=== PATIENT | male | born 1945 | race Caucasian/White ===

== ENCOUNTER → 2017-04-23 11:44 | Outpatient (CLI) | payer MEDICARE, SELFPAY ==
--- NOTE | 2017-04-23 11:47 | ECHOD_ITS ---
Reason For Study: ANEMIA Procedure This was a 2D Doppler, Color Flow transthoracic echocardiogram. The exam was of adequate technical quality. Exam performed in department. Left Ventricle Normal LV size. Severe segmental systolic dysfunction (see wall motion). The estimated ejection fraction is 20 %. Anterio-Basal: Hypokinetic. Lateral-Basal: Hypokinetic. Posterior-Basal: Severely hypokinetic. Infero-Basal: Akinetic. Basal inferoseptal: Hypokinetic. Mid-Anterior : Akinetic. Mid- Lateral : Akinetic. Mid-Posterior: Hypokinetic. Mid-Inferior: Akinetic. Mid-inferoseptal : Hypokinetic. Anterior Bronson : Hypokinetic. Inferior Bronson : Akinetic. Lateral Bronson : Hypokinetic. Septal Bronson : Hypokinetic. Right Ventricle Normal RV size. Moderate segmental dysfunction of right ventricle. Atria The left atrium is mildly enlarged. Normal right atrium. No doppler evidence for ASD. Mitral Valve There is no mitral annular calcification. Mild diffuse mitral valve thickening. Mild papillary muscle dysfunction of the mitral valve. Mild-Moderate (1-2+) mitral valve insufficiency. Tricuspid Valve Normal tricuspid valve. Mild to moderate (1-2+) tricuspid valve insufficiency. Right ventricular systolic pressure estimated to be 55 mmHg. Aortic Valve Trisinus/trileaflet aortic valve. Mild diffuse aortic valve thickening. Mild focal aortic valve calcification. Aortic sclerosis, no stenosis. Trivial aortic valve insufficiency. Pulmonic Valve The pulmonic valve is not well visualized. Great Vessels Normal sized aortic root. Pericardium/Pleural Small pericardial effusion. There are no echocardiographic indications of cardiac tamponade. Echolucency c/w a pleural effusion. MMode/2D Measurements & Calculations LVIDd: 5.3 cm IVSd: 0.92 cm Ao root diam: 3.2 cm LVIDs: 4.8 cm LVPWd: 0.91 cm LA dimension: 4.1 cm RVDd: 3.4 cm FS: 10.1 % LAV(MOD-bp): 64.5 ml LA A4 area: 19.6 cm2 RA A4 area: 16.3 cm2 LAV(MOD-bp) Indexed: 33.7 ml/m2 LAV(MOD-sp2): 64.6 ml LAV(MOD-sp4): 57.9 ml Doppler Measurements & Calculations MV E max ron: 66.9 cm/sec Ao V2 max: 108.4 cm/sec LV V1 max: 98.3 cm/sec MV A max ron: 121.8 cm/sec Ao max P.7 mmHg LV V1 max P.9 mmHg MV E/A: 0.55 PA V2 max: 58.0 cm/sec TR max ron: 341.7 cm/sec TR max P.8 mmHg Interpretation Summary Severe segmental systolic dysfunction (see wall motion). The estimated ejection fraction is 20 %. Moderate segmental dysfunction of right ventricle. The left atrium is mildly enlarged. Mild diffuse mitral valve thickening. Mild papillary muscle dysfunction of the mitral valve. Mild-Moderate (1-2+) mitral valve insufficiency. Mild to moderate (1-2+) tricuspid valve insufficiency. Aortic sclerosis, no stenosis. Trivial aortic valve insufficiency. Small pericardial effusion. There are no echocardiographic indications of cardiac tamponade. Echolucency c/w a pleural effusion. Right ventricular systolic pressure estimated to be 55 mmHg. Ordering Physician: Sean Medina Referring Physician: Sean Medina Performed By: Natalie Bond, NICHOLAS, RVT
--- NOTE | 2017-04-23 11:47 | VDUE_ITS ---
Reason For Study: Assess for possible dialysis access placement Right Arm Left Arm Right Cephalic Vein at the wrist Left Cephalic Vein at the wrist measures .22 measures .22 x .26 cm. x .21 cm. Right Cephalic Vein in the forearm Left Cephalic Vein in the forearm measures .30 x .32 cm. measures .27 x .26 cm. Right Cephalic Vein below antecub Left Cephalic Vein below antecub measures .30 x .31 cm. measures .30 x .32 cm. Right Cephalic Vein above antecub Left Cephalic Vein above antecub measures .28 x .27 cm. measures .29 x .31 cm. Right Cephalic Vein mid bicep measures .26 Left Cephalic Vein at mid bicep measures .21 x .30 cm. x .22 cm. Right Cephalic Vein at the shoulder Left Cephalic Vein at the shoulder measures .27 x .26 cm. measures .20 x .22 cm. Right Basilic Vein at the origin Basilic vein at origin measures .47 x .46 measures .38 x .36 cm. cm. Right Basilic Vein mid bicep measures .30 Basilic vein at bicep measures .47 x .47 cm. x .29 cm. Basilic vein above antecub measures .37 Right Basilic Vein above antecub x .37 cm. measures .18 x .22 cm. Brachial artery - .47 x .50 cm with a Brachial artery - .54 x .57 cm with a velocity of 80.9 cm/sec velocity of 58.9 cm/sec Radial artery - .30 x .30 cm with a velocity Radial artery - .26 x .27 cm with a velocity of 66.0 cm/sec. of 73.9 cm/sec. < Interpretation Summary Patent and compressible bilateral cephalic and basilic veins with dimensions as noted. Adequate diameter and flow bilateral radial and brachial arteries. Ordering Physician: Sean Medina Referring Physician: Sean Medina Performed By: Cyndee Ramos RVT
== END ==
PROVIDERS: Family Provider Family Medicine; PCP Family Medicine; Visit Provider Family Medicine
DX: Z01.818 Encounter for other preprocedural examination (principal); N18.6 End stage renal disease; D64.9 Anemia, unspecified; R06.02 Shortness of breath
CPT/HCPCS: 93306; 93970

== ENCOUNTER → 2017-04-27 12:22 | Outpatient (CLI) | payer MEDICARE, SELFPAY ==
--- NOTE | 2017-04-27 12:24 | RAD_ITS ---
STUDY: X-RAY CHEST REASON FOR EXAM: Male, 71 years old. Dyspnea. Patient scheduled for cardiac catheterization 4 days. TECHNIQUE: PA and lateral chest. COMPARISON: 03/26/2017. FINDINGS: Right internal jugular catheter with the tip in the lower superior vena cava. Small bilateral pleural effusions. No pneumothorax. Borderline cardiomegaly. Normal mediastinum and evelio. Normal visualized pulmonary arteries. Normal visualized aortic arch and descending thoracic aorta. Normal visualized thoracic spine. Normal visualized ribs, clavicles, and shoulders. There is no demonstrated abnormality of the visualized soft tissue structures of the upper abdomen. RAD/Chest PA and Lateral IMPRESSION: Stable chest. Small bilateral pleural effusions. Borderline cardiomegaly. Electronically Signed: Denilson Islas MD at 7:29 EST , Service support ,
[2017-04-27 15:05] LABS: Hematocrit 37.9 % (40-54); Hemoglobin 12.1 g/dl (13.0-16.5); Mean Corp Hgb Conc 31.9 g/gl (32-36); Mean Corpuscular Hgb 30.7 pg (27.0-32.0); Mean Corpuscular Volume 96.2 fL (80-94); Mean Platelet Vol. 11.4 fl (6.2-12.0); Platelet Count 212 K/mm3 (150-450); RBC Distribution Width CV 16.4 % (11.6-14.6); RBC Distribution Width SD 57.5 fl (35.1-43.9); Red Blood Count 3.94 M/mm3 (4.6-6.2); White Blood Count 7.3 K/mm3 (4.4-11.0)
[2017-04-27 15:10] LABS: Scan Indicated on CBC? Y/N NO
[2017-04-27 15:13] LABS: International Normalized Ratio 1.1; Prothrombin Time (Protime)PT. 13.5 SECONDS (11.7-14.9)
[2017-04-27 15:14] LABS: Partial Thromboplast Time 31.4 Seconds (24.1-36.2)
[2017-04-27 15:30] LABS: Anion Gap 10 (5-15); BUN 23 mg/dL (7-18); BUN/Creat Ratio 5.5 RATIO (10-20); Calcium,Total 8.9 mg/dL (8.5-10.1); Chloride 102 mmol/L (98-107); Creatinine, Serum 4.22 mg/dL (0.70-1.30); EST Glomerular Filtration Rate 15 mL/min (>60); Est Glom Filt Rate - Afr Amer 18 mL/min (>60); Glucose 144 mg/dL (74-106); Potassium 3.9 mmol/L (3.5-5.1); Sodium Level 139 mmol/L (136-145)
== END ==
PROVIDERS: Family Provider Family Medicine; PCP Family Medicine; Visit Provider Internal Medicine Cardiovascular Disease
DX: I25.10 Atherosclerotic heart disease of native coronary artery without angina pectoris (principal); N18.5 Chronic kidney disease, stage 5; I25.5 Ischemic cardiomyopathy; R06.09 Other forms of dyspnea
CPT/HCPCS: 36415; 71046; 80048; 85027; 85610; 85730

== ENCOUNTER → 2017-04-28 09:03 | Outpatient (CLI) | payer MEDICARE, SELFPAY ==
[2017-04-27 13:32] VITALS: BP 138/92; BMI 27.0
== END ==
PROVIDERS: Family Provider Family Medicine; PCP Family Medicine; Visit Provider Internal Medicine Cardiovascular Disease
DX: I25.5 Ischemic cardiomyopathy (principal); R06.09 Other forms of dyspnea

== ENCOUNTER → 2017-05-01 07:54 | Day surgery (SDC) | payer MEDICARE, SELFPAY ==
[2017-04-27 13:32] VITALS: BP 138/92; BMI 27.0
[2017-04-30 11:34] VITALS: BMI 26.9
[2017-05-01 11:06] LABS: Blood Gas Specimen Type VEN; VBG BASE EXCESS 4 mmol/L (-1.0-3.5); VBG Bicarbonate 29 mmol/L (22-26); VBG Oxygen Content 30 mmol/L (23-33); VBG PO2 25 mmHg (25-40); VBG SO2 47 % (50-70); VBG pCO2 41.5 mmHg (41-51); VBG pH 7.45 (7.32-7.42)
[2017-05-01 11:06] LABS: Base Excess 3 mmol/L (-2 to +2); Bicarbonate 27.1 mmol/L (22-26); Blood Gas Specimen Type ART; PO2 57 mmHG (75-100); SO2 91 % (95-99); Total Carbon Dioxide 28 mmol/L; pCO2 37.4 mmHg (35-45); pH 7.47 (7.35-7.45)
[2017-05-01 11:06] LABS: Blood Gas Specimen Type VEN; VBG BASE EXCESS 4 mmol/L (-1.0-3.5); VBG Bicarbonate 28 mmol/L (22-26); VBG Oxygen Content 29 mmol/L (23-33); VBG PO2 28 mmHg (25-40); VBG SO2 56 % (50-70); VBG pCO2 38.8 mmHg (41-51); VBG pH 7.47 (7.32-7.42)
[2017-05-01 11:06] LABS: Blood Gas Specimen Type VEN; VBG BASE EXCESS 3 mmol/L (-1.0-3.5); VBG Bicarbonate 28 mmol/L (22-26); VBG Oxygen Content 29 mmol/L (23-33); VBG PO2 32 mmHg (25-40); VBG SO2 63 % (50-70); VBG pCO2 43.3 mmHg (41-51); VBG pH 7.41 (7.32-7.42)
[2017-05-01 11:06] LABS: Blood Gas Specimen Type VEN; VBG BASE EXCESS 3 mmol/L (-1.0-3.5); VBG Bicarbonate 27 mmol/L (22-26); VBG Oxygen Content 29 mmol/L (23-33); VBG PO2 25 mmHg (25-40); VBG SO2 49 % (50-70); VBG pCO2 39.9 mmHg (41-51); VBG pH 7.45 (7.32-7.42)
--- NOTE | 2017-05-01 12:30 | CL.D_ITS ---
Patient Name: PAXTON CRUZ Study Date: 05/01/2017 Performing: Juan Dan MD Ht: 66.92 inches 170 cm : 1945 Wt: 171.96 lbs 78 kg Age: 71 Gender: male BSA: 1.89 PROCEDURE(S) PERFORMED PD61-AJS/LHC/COR CLINICAL PROFILE AND INDICATIONS INDICATIONS: Stable Angina, Shortness of Breath, Pulmonary Hypertension Stress/Imaging Stress/Image Study Performed: No Angina Classification Anginal Classification w/in 2 Weeks: CCS III CAD Presentations: Stable angina. CONCLUSIONS Elevated Left Ventricular End Diastolic Pressure Right heart pressures - moderately to severely elevated The patient has pulmonary hypertension which is moderate to severe. Intracardiac shunting: None LVEF: not assessed [place] Multivessel CAD Aortic Valve Stenosis- Mild RECOMMENDATIONS Risk factor modification Medical therapy DESCRIPTION OF PROCEDURE The patient arrived to the procedure lab. The risks and benefits of the procedure as well as a full d escription of our services here and current unavailability of surgical backup were fully explained to the patient and/or their significant other prior to the catheterization. The Timeout was completed, verifying the correct patient and procedure. The patient's procedural site was prepped and draped in the usual fashion. Local anesthetic was given subcutaneously to right groin region with Lidocaine 2%. Using a modified Seldinger technique, arterial access was obtained via the right femoral artery, a 4 Fr sheath was inserted Venous access was obtained via the right femoral vein, a 7Fr sheath was insert ed. A 7Fr thermal dilution catheter was inserted and right heart pressures were recorded, it was then advanced to PA position for cardiac outputs. Thermal dilution cardiac outputs were then recorded. O2 saturations were then obtained. The Thermal dilution catheter was then removed. LV to AO pullback pr essures were then recorded. Left Coronary Artery selective angiography was performed in multiple view s using a 4 Fr. JL5 catheter. Right Coronary Artery selective angiography was then performed in multi ple views using a 4 Fr. 3DRC catheter.The arterial sheath was pulled and manual compression applied u ntil hemostasis is achieved.. The venous sheath was then pulled and manual compression applied until hemostasis achieved CORONARY ANGIOGRAPHY DOMINANCE: Co- Dominant LEFT HEART ASSESSMENT Left Ventricular Ejection Fraction: Not assessed Elevated Left Ventricular End Diastolic Pressure LVEDP: 27 mmHg RIGHT HEART ASSESSMENT Thermal CO: 2.45 Thermal CI: 1.3 PW: 25/32 26 PA: 50/24 34 RV: 46/4 12 RA: 11 10 PVR: 261 SVR: 1535 Aortic Valve Area: 1.88 Aortic Valve Index: 1 Aortic Valve Mean Gradient: 8.5 Right Heart pressures - elevated Pulmonary Hypertension Intracardiac shunting: None LEFT ANTERIOR DECENDING ARTERY: PROX LAD: Previously placed stent is patent with mild luminal irregularities MID LAD: Previously placed stent is patent with mild luminal irregularities DISTAL LAD: Long: Diffuse: Irregular: 85 % Stenosis (small caliber vessel) DIAGONAL 1: Proximal - Long: Diffuse: Irregular: 50 % Stenosis CIRCUMFLEX ARTERY: PROX CIRC: Diffuse: Eccentric: 10-25 % Stenosis MID CIRC: Long: Smooth: Eccentric: 50 % Stenosis OM 1: Proximal - Diffuse: Eccentric: 75 % Stenosis (small caliber vessel) RIGHT CORONARY ARTERY: PROX RCA: Previously placed stent is patent with long diffuse 25% stenosis MID RCA: Previously placed stent is patent with short 50-75% stenosis DISTAL RCA: Previously placed stent is patent with mild luminal irregularities RT PDA: Proximal - Diffuse: Irregular: 50 % Stenosis COLLATERAL FLOW: Collateral flow from Right to Left (RCA to LCX) VALVE FINDINGS: Aortic Valve Stenosis - mild COMPLICATIONS No Complications PROCEDURE MEDICATIONS Versed 1 mg IV Oxygen: 3 L/min via nasal cannula SUMMARY OF HEMODYNAMIC DATA Time AIR REST ECG 08:20:32 ECG 08:21:04 RA 03/02 (10) SV 09:56:39 RV 46/4, 12 09:57:12 PA 50/24 (34) PA 09:59:35 PW 25/32 (26) PV 10:08:00 LV 121/9, 27 10:15:45 PW 32/40 (29) 10:15:45 LV 119/7, 26 10:15:52 PW 29/38 (27) 10:15:52 LVp 114/12, 24 10:16:05 AOp 116/65 (85) 10:16:10 PA 49/20 (31) 10:17:19 RV 45/5, 14 10:17:39 RA 16/ (15) 10:17:45 AO 104/35 (57) SA 10:19:27 Valve Area (c P-P/ms Time AIR REST Aortic 1.88 8.5 mn/142 ms 10:16:05 Type SV CO (l/m) CI (l/m/ HR Time AIR REST Thermal 36.00 2.45 1.30 68 08:20:32 Label % O2 Pres/Loc Time AIR REST IVC 56 SV 10:22:57 SVC 63 10:23:06 PA 49 PA 10:23:12 AO 91 PV 10:23:16 Signed By Juan Dan MD On 05/01/2017 12:29:42 Juan Dan MD
== END ==
PROVIDERS: Family Provider Family Medicine; PCP Family Medicine; Visit Provider Internal Medicine Cardiovascular Disease
DX: I25.118 Atherosclerotic heart disease of native coronary artery with other forms of angina pectoris (principal); I25.5 Ischemic cardiomyopathy; I48.0 Paroxysmal atrial fibrillation; I27.20 Pulmonary hypertension, unspecified; I12.9 Hypertensive chronic kidney disease with stage 1 through stage 4 chronic kidney disease, or unspecified chronic kidney disease; E11.22 Type 2 diabetes mellitus with diabetic chronic kidney disease; N18.9 Chronic kidney disease, unspecified; E78.5 Hyperlipidemia, unspecified; Z79.82 Long term (current) use of aspirin; Z79.899 Other long term (current) drug therapy; I25.2 Old myocardial infarction; Z95.5 Presence of coronary angioplasty implant and graft
CPT/HCPCS: 82803; 93456; 99152; 99153; J7040; C1751; C1769; C1894; Q9967

== ENCOUNTER → 2017-05-15 05:46 | Outpatient (CLI) | payer MEDICARE, SELFPAY ==
--- NOTE | 2017-05-15 10:07 | STRESSREP ---
Stress Test Report Date: 05/15/2017 Procedure: Pharmacologic stress nuclear imaging study Indications: Chest pain; shortness of breath; CAD; ID; status post PCI Consent: Per the patient Procedure: The patient underwent pharmacologic (Regadenoson) evaluation with a peak heart rate of 101 per minute (68% predicted maximal heart rate) and a peak blood pressure of 142/76 mmHg. The baseline ECG demonstrated normal sinus rhythm; right bundle branch block pattern; nonspecific ST and T-wave abnormality. The peak pharmacologic ECG demonstrated no obvious ECG changes. There were no cardiac dysrhythmias pretest, during pharmacologic infusion, or recovery. There was no complaint of chest discomfort during pharmacologic infusion or recovery. The examination was discontinued secondary to completion of protocol. Impression: 1. Pharmacologic (Regadenoson) evaluation 2. Peak pharmacologic ECG with with continued right bundle branch block pattern with nonspecific ST and T-wave abnormality with no obvious ECG changes. 3. No cardiac dysrhythmias pretest, during pharmacologic infusion, or recovery 4. Nuclear images pending Myocardial perfusion imaging study: Technique: The patient was injected with 11.1 millicuries of technetium 99m Cardiolite and subsequently rest SPECT Cardiolite nuclear imaging was obtained in the horizontal long, vertical long, and short axis views. The patient underwent pharmacologic (Regadenoson) evaluation with a peak heart rate of 101 per minute (68% predicted maximal heart rate) and a peak blood pressure of 42/76 mmHg. the patient was injected with 33.8 millicuries of technetium 99m Cardiolite and subsequently stress SPECT Cardiolite nuclear imaging was obtained in the horizontal long, vertical long, and short axis views. A gated Cardiolite study at peak stress was obtained. Interpretation: Rest and stress SPECT Cardiolite nuclear imaging status post realignment, normalization, and attenuation correction demonstrate status post stress and area of diminished tracer uptake in portions of the mid inferolateral segments. There is diminished end-systolic thickening and brightening in the aforementioned areas. The gated Cardiolite study demonstrates diminished myocardial thickening and end were wall motion especially in the aforementioned areas. The reported LVEF is 30%. Impression: 1. Rest and stress SPECT currently nuclear imaging demonstrate myocardial perfusion changes appearing compatible with an area of stress-induced myocardial ischemia involving portions of the mid inferolateral segments. 2. The gated Cardiolite study reports an LVEF of 30%. This note was generated with Dragon dictation software. It may contain incorrect words, spelling, and punctuation that were not noted in checking the note before signing.
== END ==
PROVIDERS: Family Provider Family Medicine; PCP Family Medicine; Visit Provider Internal Medicine Cardiovascular Disease
DX: I25.5 Ischemic cardiomyopathy (principal); I25.10 Atherosclerotic heart disease of native coronary artery without angina pectoris; I25.2 Old myocardial infarction; Z98.61 Coronary angioplasty status
CPT/HCPCS: 78452; 93017; A9500; A4216; J2785

== ENCOUNTER 2017-05-20 09:38 | Day surgery (SDC) | payer MEDICARE, SELFPAY ==
[2017-05-19 11:20] VITALS: BMI 26.9
[2017-05-20] VITALS (20 sets, daily range): BP systolic 113–137; BP diastolic 52–91; PULSE 84–94; RESP 13–28; TEMP 37.2–37.4; O2SAT 89–96; BMI 26.5; BMI 26.9
[2017-05-20 10:36] LABS: Bedside Glucose 134 mg/dL (70-110)
--- NOTE | 2017-05-20 14:30 | EKG12_ITS ---
Test Reason : POST CATH Blood Pressure : / mmHG Vent. Rate : 087 BPM Atrial Rate : 087 BPM P-R Int : 272 ms QRS Dur : 142 ms QT Int : 406 ms P-R-T Axes : 067 051 259 degrees QTc Int : 488 ms Sinus rhythm with 1st degree A-V block Right bundle branch block T wave abnormality, consider lateral ischemia Abnormal ECG Confirmed by ERIN EDEN, MARIO ([id number]), order editor LAITH OSULLIVAN ([id number]) on 05/27/2017 1:25:24 PM Referred By: Saroj Luna Confirmed By:MARIO KHAN MD
[2017-05-20 14:31] LABS: ACT Activated Clotting Time 180 sec (74-137)
[2017-05-20 14:31] LABS: ACT Activated Clotting Time 213 sec (74-137)
--- NOTE | 2017-05-20 14:49 | CL.I_ITS ---
Patient Name: PAXTON CRUZ Study Date: 05/20/2017 Performing: Saroj Luna MD Ht: 67 inches 170 cm : 1945 Wt: 172.2 lbs 78 kg Age: 71 Gender: male BSA: 1.89 PROCEDURE(S) PERFORMED [id number] W OR WO PTCA, SINGLE CORONARY ARTERY [id number] W OR WO PTCA, SINGLE CORONARY ARTERY [id number] W OR WO PTCA, EACH ADD'L ARTERY, SAME MAJOR CLINICAL PROFILE AND CO-MORBIDITIES INDICATIONS: Unstable Angina Stress/Imaging Stress Test w/SPECT MPI: Yes Result: Positive Intermediate Risk Stress Test with S PECT MPI: Positive Intermediate Risk Angina Classification Anginal Classification w/in 2 Weeks: CCS III Comorbidities/Risk Factors: Hypertension Dyslipidemia Prior CHF CONCLUSIONS Successful PTCA/HASMUKH of the of proxima RCA in stent restenosis, utilizing a 2.0 x 12 Angiosculpt, foll owed by a 3.0 x 33 Elunira HASMUKH; 85%-->0%, no dissection. Successful PTCA/HASMUKH of the mid LPL branch of the LCX with a 3.0 x 16 Promus Synergy; 75%-->0%, no dis section. Successful PTCA/HASMUKH of the mid LCX with a 2.75 x 16 Promus Synergy; 75%-->0%, no dissection. No PCI of smal OM branch perfomed due to small vessel disease. RECOMMENDATIONS Highly recommend quitting all tobacco products Follow up with primary mental hygienist Risk factor modification ASA Indefinitley Plavix for at least 12 months Routine post interventional care Refer for Outpatient Cardiac Rehab Manual sheath removal per protocol Follow up with Dr. Dan Hemodialysis either tonight or tomorrow. Pt may proceed with AV fistula placement as scheduled. DESCRIPTION OF PROCEDURE The patient arrived to the procedure lab. The risks and benefits of the procedure as well as a full d escription of our services here and current unavailability of surgical backup were fully explained to the patient and/or their significant other prior to the catheterization. The Timeout was completed, verifying the correct patient and procedure. The patient's procedural site was prepped and draped in the usual fashion. Local anesthetic was given subcutaneously to right groin region with Lidocaine 2%. Using a modified Seldinger technique, arterial access was obtained via the right femoral artery, a 6 Fr sheath was inserted.. HSII Guide catheter was inserted and engaged into the RCA. BMW Guide wire was advanced to the RCA. An giogram performed pre balloon dilatation. 2.0x10 Angioscultp Balloon catheter was advanced across les ion in the right coronary, proximal. Angiogram performed post balloon dilatation. 3.0x33 Elunir Drug Eluting stent was advanced across the lesion in the right coronary, proximal. Angiogram performed pos t stent deployment. NC Emerge 3.0x12 Balloon catheter was inserted post stent. Angiogram performed po st balloon dilatation. EBU 3.75 Guide catheter was inserted and engaged into the LCA. BMW Guide wire was advanced to the OM. BMW Guide wire was inserted as a americo wire. 2.0x12 Emerge Balloon catheter was advanced across lesion in the circumflex, mid. PTCA balloon inflated at 6 atms for 11 secs Angiog randall performed post balloon dilatation. BMW Guide wire was advanced to the Circumflex. 2.0x12 Emerge B alloon catheter was advanced across lesion in the circumflex, distal. PTCA balloon inflated at 10 brittany s for 14 secs Angiogram performed post balloon dilatation. 3.0x16 Synergy Drug Eluting stent was adva nced across the lesion in the circumflex, distal. Angiogram performed post stent deployment. synergy 2.75 x 16 Drug Eluting stent was advanced across the lesion in the circumflex, mid. Angiogram perform ed post stent deployment.. . The arterial sheath was sutured in place and capped. INTERVENTION INFORMATION LESION SITE: RCA (Proximal) Lesion Complexity: High/C, lesion at bifurcation: No, thrombus present: No, lesion length: 33 mm, cul prit lesion: No Pre Stenosis: 85 % Pre intervention JAMILA flow: 3 PROCEDURE: Drug Eluting Stent with pre and post dilatation Post Stenosis: 0 % Post intervention JAMILA flow: 3 Lesion Devices: Medtronic 6 Fr HSII 100cm Guide Catheter Live .014 BMW [place] Straight 190cm doxIQ Angiosculpt RX 2.0x10 Scoring Balloon Cardinal Elunir HASMUKH RX 3.0X33 Torsten Sci NC EMERGE MR 3.00x12 BALLOON LESION SITE: Circumflex (Mid) Lesion Complexity: Non-High/Non-C, lesion at bifurcation: No, thrombus present: No, lesion length: 16 mm, culprit lesion: Yes Pre Stenosis: 75 % Pre intervention JAMILA flow: 3 PROCEDURE: Drug Eluting Stent with pre dilatation. Post Stenosis: 0 % Post intervention JAMILA flow: 3 Lesion Devices: Medtronic 6 Fr EBU3.75 100cm Guide Catheter Live .014 BMW [place] Straight 190cm Torsten Sci EMERGE MR 2.00x12 BALLOON Torsten Sci Synergy MR HASMUKH 2.75x16 LESION SITE: Circumflex (Distal) Lesion Complexity: Non-High/Non-C, lesion at bifurcation: No, thrombus present: No, lesion length: 16 mm, culprit lesion: No Pre Stenosis: 75 % Pre intervention JAMILA flow: 3 PROCEDURE: Drug Eluting Stent with pre dilatation. 0 % Post intervention JAMILA flow: 3 Lesion Devices: Torsten Sci EMERGE MR 2.00x12 BALLOON Torsten Sci Synergy MR HASMUKH 3.00x16 COMPLICATIONS No Complications PROCEDURE MEDICATIONS Baby Aspirin (81mg) 1 Tabs PO @ 05/20/2017 10:18:33 Heparin 6000 unit(s) IV 05/20/2017 13:16:19 Heparin 4000 unit(s) IV 05/20/2017 13:44:44 Nitro 200 mcg IC 05/20/2017 13:18:03 Nitro 200 mcg IC 05/20/2017 13:18:03 Nitro 200 mcg IC 05/20/2017 13:41:31 Nitro 200 mcg IC 05/20/2017 13:59:00 Plavix 75 mg PO 05/20/2017 10:18:13 SUMMARY OF HEMODYNAMIC DATA Time AIR REST ECG 10:23:25 AO 137/68 (97) SA 13:17:31 Signed By Saroj Luna MD On 05/20/2017 14:48:20 Saroj Luna MD
[2017-05-20 15:20] LABS: Hematocrit 30.3 % (40-54); Hemoglobin 10.1 g/dl (13.0-16.5); Mean Corp Hgb Conc 33.3 g/gl (32-36); Mean Corpuscular Hgb 31.3 pg (27.0-32.0); Mean Corpuscular Volume 93.8 fL (80-94); Mean Platelet Vol. 10.4 fl (6.2-12.0); Platelet Count 243 K/mm3 (150-450); RBC Distribution Width CV 15.5 % (11.6-14.6); RBC Distribution Width SD 53.1 fl (35.1-43.9); Red Blood Count 3.23 M/mm3 (4.6-6.2); White Blood Count 7.9 K/mm3 (4.4-11.0)
[2017-05-20 15:21] LABS: Scan Indicated on CBC? Y/N NO
[2017-05-20] MEDS: 0.9% Normal Saline 1,000 ML 150 ML IV (15:26)
--- NOTE | 2017-05-20 15:32 | CRPHASE1 ---
Patient Data/Charges Former Patient:: Phase I Director Translational:: Saroj Luna Admit Date:: 05/20/17 Phase I Charge:: Level I - Education Risk Factors/Lifestyle Smoking Status: Never smoker Hx Hypertension: Yes Hx Diabetes Mellitus Type 2: Yes Hx Dyslipidemia: Yes Hx Obesity: Yes Height: 1.7 m Weight:: 78.018 kg BMI: 26.9 ETOH: No Caffeine: Yes Substance Abuse: No Risk Factor for Sedentary Lifestyle: Lowest Risk Family History: Family History (Last Reviewed 05/15/17 @ 14:12 by Deedee Carlos) Mother Breast cancer Father Colon cancer Family History: Diabetes, Heart Disease, Hypertension Past Cardiac Illness: Coronary Artery Disease, Myocardial Infarction, Previous PCI w/Stent Phase I Education Given On:: [place], Nutrition, Antiplatelet medication, CHF, Diabetes - Type II Issues Affecting Care:: None Knowledge of Condition:: Yes Hospital Course Pain Description: Tightness - 7 PREVIOUS STENTS 3 AR'S Cardiac Cath Date:: 05/20/17 Medical/Surgical History AR:: Yes Angina:: Yes CAD:: Yes Diabetes Type II:: Yes Hypertension:: Yes Renal:: Yes - ON DIAYLSIS 3X WEEK PTCA:: Yes - SINCE FEB 2014
--- NOTE | 2017-05-20 15:37 | CRPH1.INSTRU ---
General Education CAD and cardiac anatomy and function:: Patient communicates acknowledgment Explanation of diagnoses and procedures:: Patient communicates acknowledgment Sign/Symptoms of [place]:: Patient communicates acknowledgment Antiplatelet therapy: Patient communicates acknowledgment Proper use of NTG-SL: Patient communicates acknowledgment Emergency procedures and activation of EMS: Patient communicates acknowledgment Compliance of all prescribed medications: Patient communicates acknowledgment Smoking Patient Nicotine/Smoking Risk Factors Are:: Never smoked Dyslipidemia Recommendations Include:: Lipid profile not available - on meds Overweight/Obesity Patient Overweight/Obesity Risk Factors Are:: Overweight = 26-29 Overweight/Obesity:: Patient communicates acknowledgment Hypertension Recommendations Include:: Maintain BP <130/85, BP <130/80 if diabetic Hypertension:: Patient communicates acknowledgment - on meds Heart Disease Patient Heart Disease Risk Factors Are:: Family history of heart disease < 65 years old, Previous cardiac event Heart Disease Response Code:: Patient communicates acknowledgment Diabetes Patient Diabetes Risk Factors Are:: Elevated blood sugars Recommendations Include:: Maintain fasting blood sugars 70-110 md/dL Diabetes:: Patient communicates acknowledgment Metabolic Syndrome Patient Metabolic Syndrome Risk Factors Are [3 of 5]:: Fasting blood sugar > 100 mg/dL, Hypertension Metabolic Syndrome Response Code:: Patient communicates acknowledgment Sedentary Recommendations Include:: Discussed home walking program Sedentary Response Code:: Patient communicates acknowledgment Stress Patient Stress Risk Factors Are:: Patient denies stress as a risk factor
[2017-05-20 15:44] LABS: CPK Total, Creatine Kinase 54 U/L (39-308)
[2017-05-20 16:25] LABS: M R Staph aureus DNA By PCR Negative (Negative); Probe Check PASS; Specimen Processing Control PASS
[2017-05-20 16:51] LABS: ACT Activated Clotting Time 169 sec (74-137)
[2017-05-20] MEDS: Pravastatin 80 MG Tablet PO (21:29)
[2017-05-20] MEDS: 0.9% NaCl Peripheral Flush Adult/Peds IV (21:29)
[2017-05-20] MEDS: Carvedilol 12.5 MG Tablet PO (21:29)
[2017-05-20 21:40] LABS: Hematocrit 30.4 % (40-54); Hemoglobin 9.9 g/dl (13.0-16.5); Mean Corp Hgb Conc 32.6 g/gl (32-36); Mean Corpuscular Hgb 30.6 pg (27.0-32.0); Mean Corpuscular Volume 93.8 fL (80-94); Platelet Count 241 K/mm3 (150-450); RBC Distribution Width CV 15.8 % (11.6-14.6); RBC Distribution Width SD 54.4 fl (35.1-43.9); Red Blood Count 3.24 M/mm3 (4.6-6.2); White Blood Count 7.6 K/mm3 (4.4-11.0)
[2017-05-20 21:42] LABS: Scan Indicated on CBC? Y/N NO
[2017-05-20 21:46] LABS: CPK Total, Creatine Kinase 47 U/L (39-308)
[2017-05-21] VITALS (17 sets, daily range): BP systolic 109–158; BP diastolic 55–84; PULSE 78–88; RESP 15–29; TEMP 36.8–37.2; O2SAT 89–96
[2017-05-21 04:05] LABS: Hematocrit 29.6 % (40-54); Hemoglobin 9.9 g/dl (13.0-16.5); Mean Corp Hgb Conc 33.4 g/gl (32-36); Mean Corpuscular Hgb 31.9 pg (27.0-32.0); Mean Corpuscular Volume 95.5 fL (80-94); Mean Platelet Vol. 10.2 fl (6.2-12.0); Platelet Count 219 K/mm3 (150-450); RBC Distribution Width CV 15.5 % (11.6-14.6); White Blood Count 7.6 K/mm3 (4.4-11.0)
[2017-05-21 04:07] LABS: Scan Indicated on CBC? Y/N NO
[2017-05-21 04:27] LABS: CPK Total, Creatine Kinase 44 U/L (39-308)
[2017-05-21 04:34] LABS: Anion Gap 8 (5-15); BUN 20 mg/dL (7-18); BUN/Creat Ratio 4.9 RATIO (10-20); Calcium,Total 7.9 mg/dL (8.5-10.1); Chloride 102 mmol/L (98-107); Cholesterol 98 mg/dL (200); Creatinine, Serum 4.12 mg/dL (0.70-1.30); EST Glomerular Filtration Rate 15 mL/min (>60); Est Glom Filt Rate - Afr Amer 18 mL/min (>60); Estimated Creatinine Clearance 14.93 ml/min; Glucose 172 mg/dL (74-106); High Density Lipoprotein 37 mg/dL; Sodium Level 137 mmol/L (136-145); Triglycerides 89 mg/dL; Very Low Density Lipoprotein 18 mg/dL (5-40)
--- NOTE | 2017-05-21 07:29 | PCM.DC.CCA ---
Discharge Diet: Low fat/ Low Cholesterol Discharge Activity: Return to Normal Activity May shower in (days): 1 May resume sexual activity in: 1-2 weeks Lifting Restrictions: Do not lift anything greater than 10 pounds for 3 days Call your doctor if your incision/area has: Continuous Slow Oozing, Sudden Increased Bleeding, Increased Pain/ Swelling, Increased Redness, Foul Smelling Discharge, Swelling at the incision site Call your doctor if you observe: Fever of 101 or Higher, Shortness of breath, Chest pain Remove Dressing in (days):: 1 Cleanse incision/area with: Soap & Water Additional Instructions: You will be on Plavix for at least one year. If anyone asks you to stop this medication, please contact the [facility] first. You will remain on aspirin for life. You are scheduled to see Sean Lynne, Nurse Practitioner, in the [facility] office on June 30, 2017 at 9:30 AM to evaluate how you are doing. You may receive a phone call for cardiac rehab before that time. If you have any concerns, please call our office at [phone] Allergies/Adverse Reactions: Allergies codeine Allergy (Verified 05/20/17 09:59) Itching Medications to take at Discharge carvedilol 12.5 mg tablet 12.5 mg PO BID #60 tab 04/27/17 clopidogrel 75 mg tablet 75 mg PO QDAY 04/27/17 isosorbide mononitrate ER 120 mg tablet,extended release 24 hr 120 mg PO DAILY 04/27/17 pravastatin 80 mg tablet 80 mg PO QHS #30 tab 04/27/17 aspirin 81 mg chewable tablet 81 mg PO QDAY tab 04/28/17 Guaifen/Phenyleph/Acetaminophn [Severe Sinus Congest-Pain Cplt] 1 each PO Q6H PRN PRN 05/19/17 Ensure Enlive 120 ml PO 4X/DAY liquid 05/21/17 Primary Care Physician: Sean Medina MD [Primary Care Provider] - Please Follow Up With: Sean Ferguson, [facility] - Office follow-up When: June 30, 2017 at 9:30 AM Cardiac Rehabilitation Info Cardiac Rehabilitation Program Information: Cardiac Rehabilitation is important for patients like you who are recovering from a heart problem. Cardiac rehabilitation programs are recognized as integral to the continued care of the patient with coronary heart disease. The cardiac rehabilitation program is designed to optimize a patient's physical, psychological, and social functioning. Health acute care certified nursing assistant work in cardiac rehabilitation programs and assist you with getting the treatments you need to get stronger and healthier - like exercise, healthy eating habits, and medications. Cardiac rehabilitation has been show to help people with heart problems live longer and have better life enjoyment than people who do not go to cardiac rehabilitation. Please contact the Cardiac Rehabilitation Program at [facility] at in two weeks if you have not heard from them.
--- NOTE | 2017-05-21 07:36 | DCINST_ITS ---
Discharge Diet: Low fat/ Low Cholesterol Discharge Activity: Return to Normal Activity May shower in (days): 1 May resume sexual activity in: 1-2 weeks Lifting Restrictions: Do not lift anything greater than 10 pounds for 3 days Call your doctor if your incision/area has: Continuous Slow Oozing, Sudden Increased Bleeding, Increased Pain/ Swelling, Increased Redness, Foul Smelling Discharge, Swelling at the incision site Call your doctor if you observe: Fever of 101 or Higher, Shortness of breath, Chest pain Remove Dressing in (days):: 1 Cleanse incision/area with: Soap & Water Additional Instructions: You will be on Plavix for at least one year. If anyone asks you to stop this medication, please contact the [facility] first. You will remain on aspirin for life. You are scheduled to see Sean Lynne, Nurse Practitioner, in the [facility] office on June 30, 2017 at 9:30 AM to evaluate how you are doing. You may receive a phone call for cardiac rehab before that time. If you have any concerns, please call our office at [phone] Allergies/Adverse Reactions: Allergies codeine Allergy (Verified 05/20/17 09:59) Itching Medications to take at Discharge carvedilol 12.5 mg tablet 12.5 mg PO BID #60 tab 04/27/17 clopidogrel 75 mg tablet 75 mg PO QDAY 04/27/17 isosorbide mononitrate ER 120 mg tablet,extended release 24 hr 120 mg PO DAILY 04/27/17 pravastatin 80 mg tablet 80 mg PO QHS #30 tab 04/27/17 aspirin 81 mg chewable tablet 81 mg PO QDAY tab 04/28/17 Guaifen/Phenyleph/Acetaminophn [Severe Sinus Congest-Pain Cplt] 1 each PO Q6H PRN PRN 05/19/17 Ensure Enlive 120 ml PO 4X/DAY liquid 05/21/17 Primary Care Physician: Sean Medina MD [Primary Care Provider] - Please Follow Up With: Sean Ferguson, [facility] - Office follow-up When: June 30, 2017 at 9:30 AM Cardiac Rehabilitation Info Cardiac Rehabilitation Program Information: Cardiac Rehabilitation is important for patients like you who are recovering from a heart problem. Cardiac rehabilitation programs are recognized as integral to the continued care of the patient with coronary heart disease. The cardiac rehabilitation program is designed to optimize a patient's physical, psychological, and social functioning. Health college and career counselor work in cardiac rehabilitation programs and assist you with getting the treatments you need to get stronger and healthier - like exercise, healthy eating habits, and medications. Cardiac rehabilitation has been show to help people with heart problems live longer and have better life enjoyment than people who do not go to cardiac rehabilitation. Please contact the Cardiac Rehabilitation Program at [facility] at in two weeks if you have not heard from them.
--- NOTE | 2017-05-21 08:25 | PCM.PN.BLA ---
Progress Note Pt. is not on an CHRISTINA inhibitor or ARB d/t history of chronic kidney disease and need for dialysis.
--- NOTE | 2017-05-21 11:45 | PCM.CONS.R ---
Problem List (1) ESRD (end stage renal disease) on dialysis Status: Acute Consultation - Renal 05/21/17 PCP/ Referring MD: Requesting physician: Dr Luna Primary care physician: Sean Medina MD Reason for Consultation:: ESRD - History of Present Illness History of Present Illness: The patient is a 71 year old M who was admitted to [facility] electively after a cardiac cath and PCI. ESRD on HD TTS schedule Access is RIJ TDC. was scheduled for AVF placement soon currently complaints of some pain and swelling in left thumb - Allergies Allergies: Allergies codeine Allergy (Verified 05/20/17 09:59) Itching - Current Medications Current Medications: Current Medications Aspirin (Aspirin, Baby) 81 mg PO DAILY@0800 [facility] Atropine Sulfate () 0.5 mg IV UD PRN PRN Reason: HR <50 bpm Carvedilol (Coreg) 12.5 mg PO BID [facility] Last Admin: 05/20/17 21:29 Dose: 12.5 mg Clopidogrel Bisulfate (Plavix) 75 mg PO DAILY [facility] Sodium Chloride () 250 mls @ 15 mls/hr IV .[id number] PRN PRN Reason: SALINE FLUSH Sodium Chloride () 250 mls @ 15 mls/hr IV .[id number] PRN PRN Reason: SALINE FLUSH Isosorbide Mononitrate (Imdur) 120 mg PO DAILY [facility] Nutritional Formula (Lactose Free) (Ensure Enlive) 120 ml PO 4X/DAY [facility] Last Admin: 05/20/17 21:28 Dose: Not Given Pravastatin Sodium (Pravachol) 80 mg PO QHS [facility] Last Admin: 05/20/17 21:29 Dose: 80 mg Sodium Chloride () 500 ml IV BOLUS PRN PRN Reason: VASO-VAGAL PROTOCOL Sodium Chloride () 5 - 30 ml IV UD PRN PRN Reason: SALINE FLUSH Last Admin: 05/20/17 21:29 Dose: 30 ml - Past Medical History Past Medical History (Chronic Problems): Chronic Problems (Last Reviewed 05/15/17 @ 14:12 by Deedee Carlos) Old myocardial infarction (Chronic) Inferior UT, anterior UT 07/05 assisted use of drug (Chronic) Antihyperlipidemic Family history of hypertension (Chronic) Other secondary pulmonary hypertension (Chronic) Subendocardial ischemia (Chronic) Type II diabetes mellitus (Chronic) Hyperlipidemia associated with type 2 diabetes mellitus (Chronic) Hypertension (Chronic) S/P PTCA (percutaneous transluminal coronary angioplasty) (Chronic) Stents X 5, 03/03 [facility], PTCA with stenting to mid & distal RCA 07/05, PTCA of proximial LAD 07/05 HLD (hyperlipidemia) (Chronic) Diabetes mellitus (Chronic) - Past Surgical History Surgical History: angioplasty, - - Coronary artery stent placement ?7, finger amputations right hand - Social History Smoking Status: Never smoker - Family History Maternal Family History: Family History (Last Updated 05/21/17 @ 09:02 by Maggie Schmid) Mother Breast cancer Father Colon cancer Other Family history of hypertension History Items: Heart Disease Paternal Family History: Family History (Last Updated 05/21/17 @ 09:02 by Maggie Schmid) Mother Breast cancer Father Colon cancer Other Family history of hypertension History Items: Cancer Review of Systems Constitutional: Denies: Chills, Fever, Weight Change HEENT: Denies: Head Aches, Sinus Congestion, Sinus Drainage Cardiovascular: Denies: Chest Pain, Palpitations Respiratory: Denies: Cough, Shortness of breath at rest, Sputum production Gastrointestinal: Denies: Abdominal Pain, Nausea, Vomiting Genitourinary: Denies: Dysuria Musculoskeletal: Denies: Joint Pain, Joint Tenderness Skin: Denies: Rash, Wounds Neurological: Denies: Numbness, Tingling, Focal weakness Psychiatric: Denies: Anxiety, Depression, Homicidal Ideations, Suicidal Ideations Hematologic/ Lymphatic: Denies: Easy Bruising, Easy Bleeding Patient Problems: Active and Suspected Problems (Last Reviewed 05/15/17 @ 14:12 by Deedee Carlos) ESRD (end stage renal disease) (Acute) ESRD (end stage renal disease) on dialysis (Acute) - Physical Exam General: Alert, Oriented x3, Cooperative HEENT: Atraumatic, PERRLA, EOMI, Normocephalic Neck: Supple, No JVD, Negative Carotid Bruits Lungs: Clear to auscultation, Normal air movement Cardiovascular: Regular rate, No murmurs Abdomen: Bowel Sounds Present, Soft, Non Tender Extremities: No edema, Capillary Refill Less than 3 Seconds Skin: No rashes, No breakdown Musculoskeletal: No Tenderness to Palpation of Joints or Extremities Neurological: Cranial nerves II-XII grossly intact Psych/Mental Status: Normal Affect, Appropriate Vital Signs Temp Pulse Resp BP Pulse Ox 98.3 F 82 29 H 130/71 H 89 05/21/17 01:00 05/21/17 08:00 05/21/17 06:00 05/21/17 06:00 05/21/17 06:00 Oxygen Delivery Method Room Air Weight: 78.1 kg Body Mass Index (BMI) 26.5 Finger Stick Blood Glucose 123 Intake and Output for Last 24 Hours 05/19/17 05/20/17 05/21/17 23:59 23:59 23:59 Intake Total 120 / 120 960 / 960 Output Total 600 / 600 Balance 120 / 120 360 / 360 Laboratory Tests Past 24 Hrs 05/20/17 05/20/17 05/20/17 13:41 14:18 14:45 WBC RBC Hgb Hct MCV MCH MCHC RDW RDW Differential Plt Count MPV Activated Clotting Time 180 H 213 H Sodium Potassium Chloride Carbon Dioxide Anion Gap BUN Creatinine Estim Creat Clear Calc Est GFR (MDRD) Af Amer Est GFR (MDRD) Non-Af BUN/Creatinine Ratio Glucose Calcium Total Creatine Kinase Triglycerides Cholesterol LDL Cholesterol VLDL Cholesterol HDL Cholesterol MRSA (PCR) Negative 05/20/17 05/20/17 05/20/17 15:00 15:00 16:37 WBC 7.9 RBC 3.23 L Hgb 10.1 L Hct 30.3 L MCV 93.8 MCH 31.3 MCHC 33.3 RDW 15.5 H RDW Differential 53.1 H Plt Count 243 MPV 10.4 Activated Clotting Time 169 H Sodium Potassium Chloride Carbon Dioxide Anion Gap BUN Creatinine Estim Creat Clear Calc Est GFR (MDRD) Af Amer Est GFR (MDRD) Non-Af BUN/Creatinine Ratio Glucose Calcium Total Creatine Kinase 54 Triglycerides Cholesterol LDL Cholesterol VLDL Cholesterol HDL Cholesterol MRSA (PCR) 05/20/17 05/20/17 05/21/17 21:15 21:15 04:00 WBC 7.6 RBC 3.24 L Hgb 9.9 L Hct 30.4 L MCV 93.8 MCH 30.6 MCHC 32.6 RDW 15.8 H RDW Differential 54.4 H Plt Count 241 MPV 10.0 Activated Clotting Time Sodium Potassium Chloride Carbon Dioxide Anion Gap BUN Creatinine Estim Creat Clear Calc Est GFR (MDRD) Af Amer Est GFR (MDRD) Non-Af BUN/Creatinine Ratio Glucose Calcium Total Creatine Kinase 47 44 Triglycerides Cholesterol LDL Cholesterol VLDL Cholesterol HDL Cholesterol MRSA (PCR) 05/21/17 05/21/17 04:00 04:00 WBC 7.6 RBC 3.10 L Hgb 9.9 L Hct 29.6 L MCV 95.5 H MCH 31.9 MCHC 33.4 RDW 15.5 H RDW Differential 52.0 H Plt Count 219 MPV 10.2 Activated Clotting Time Sodium 137 Potassium 4.0 Chloride 102 Carbon Dioxide 27.0 Anion Gap 8 BUN 20 H Creatinine 4.12 H Estim Creat Clear Calc 14.93 Est GFR (MDRD) Af Amer 18 L Est GFR (MDRD) Non-Af 15 L BUN/Creatinine Ratio 4.9 L Glucose 172 H Calcium 7.9 L Total Creatine Kinase Triglycerides 89 Cholesterol 98 LDL Cholesterol 43 VLDL Cholesterol 18 HDL Cholesterol 37 L MRSA (PCR) Assessment/Plan Active and Suspected Problems (Last Reviewed 05/15/17 @ 14:12 by Deedee Carlos) ESRD (end stage renal disease) (Acute) ESRD (end stage renal disease) on dialysis (Acute) ESRD. HD today. seen on dialysis. see orders and flowsheets. BP is 135/45. Access is RIJ TDC. UF 1 L as tolerated. he is close to EDW CAD s/p stenting. no complaints dc today after HD
--- NOTE | 2017-05-21 11:52 | CON.PCM_ITS ---
Problem List (1) ESRD (end stage renal disease) on dialysis Status: Acute Consultation - Renal 05/21/17 PCP/ Referring MD: Requesting physician: Dr Luna Primary care physician: Sean Medina MD Reason for Consultation:: ESRD - History of Present Illness History of Present Illness: The patient is a 71 year old M who was admitted to [facility] electively after a cardiac cath and PCI. ESRD on HD TTS schedule Access is RIJ TDC. was scheduled for AVF placement soon currently complaints of some pain and swelling in left thumb - Allergies Allergies: Allergies codeine Allergy (Verified 05/20/17 09:59) Itching - Current Medications Current Medications: Current Medications Aspirin (Aspirin, Baby) 81 mg PO DAILY@0800 [facility] Atropine Sulfate () 0.5 mg IV UD PRN PRN Reason: HR <50 bpm Carvedilol (Coreg) 12.5 mg PO BID [facility] Last Admin: 05/20/17 21:29 Dose: 12.5 mg Clopidogrel Bisulfate (Plavix) 75 mg PO DAILY [facility] Sodium Chloride () 250 mls @ 15 mls/hr IV .[id number] PRN PRN Reason: SALINE FLUSH Sodium Chloride () 250 mls @ 15 mls/hr IV .[id number] PRN PRN Reason: SALINE FLUSH Isosorbide Mononitrate (Imdur) 120 mg PO DAILY [facility] Nutritional Formula (Lactose Free) (Ensure Enlive) 120 ml PO 4X/DAY [facility] Last Admin: 05/20/17 21:28 Dose: Not Given Pravastatin Sodium (Pravachol) 80 mg PO QHS [facility] Last Admin: 05/20/17 21:29 Dose: 80 mg Sodium Chloride () 500 ml IV BOLUS PRN PRN Reason: VASO-VAGAL PROTOCOL Sodium Chloride () 5 - 30 ml IV UD PRN PRN Reason: SALINE FLUSH Last Admin: 05/20/17 21:29 Dose: 30 ml - Past Medical History Past Medical History (Chronic Problems): Chronic Problems (Last Reviewed 05/15/17 @ 14:12 by Deedee Carlos) Old myocardial infarction (Chronic) Inferior NV, anterior NV 07/05 longterm use of drug (Chronic) Antihyperlipidemic Family history of hypertension (Chronic) Other secondary pulmonary hypertension (Chronic) Subendocardial ischemia (Chronic) Type II diabetes mellitus (Chronic) Hyperlipidemia associated with type 2 diabetes mellitus (Chronic) Hypertension (Chronic) S/P PTCA (percutaneous transluminal coronary angioplasty) (Chronic) Stents X 5, 03/03 [facility], PTCA with stenting to mid & distal RCA 07/05 , PTCA of proximial LAD 07/05 HLD (hyperlipidemia) (Chronic) Diabetes mellitus (Chronic) - Past Surgical History Surgical History: angioplasty, - - Coronary artery stent placement ?7, finger amputations right hand - Social History Smoking Status: Never smoker - Family History Maternal Family History: Family History (Last Updated 05/21/17 @ 09:02 by Maggie Schmid) Mother Breast cancer Father Colon cancer Other Family history of hypertension History Items: Heart Disease Paternal Family History: Family History (Last Updated 05/21/17 @ 09:02 by Maggie Schmid) Mother Breast cancer Father Colon cancer Other Family history of hypertension History Items: Cancer Review of Systems Constitutional: Denies: Chills, Fever, Weight Change HEENT: Denies: Head Aches, Sinus Congestion, Sinus Drainage Cardiovascular: Denies: Chest Pain, Palpitations Respiratory: Denies: Cough, Shortness of breath at rest, Sputum production Gastrointestinal: Denies: Abdominal Pain, Nausea, Vomiting Genitourinary: Denies: Dysuria Musculoskeletal: Denies: Joint Pain, Joint Tenderness Skin: Denies: Rash, Wounds Neurological: Denies: Numbness, Tingling, Focal weakness Psychiatric: Denies: Anxiety, Depression, Homicidal Ideations, Suicidal Ideations Hematologic/ Lymphatic: Denies: Easy Bruising, Easy Bleeding Patient Problems: Active and Suspected Problems (Last Reviewed 05/15/17 @ 14:12 by Deedee Carlos) ESRD (end stage renal disease) (Acute) ESRD (end stage renal disease) on dialysis (Acute) - Physical Exam General: Alert, Oriented x3, Cooperative HEENT: Atraumatic, PERRLA, EOMI, Normocephalic Neck: Supple, No JVD, Negative Carotid Bruits Lungs: Clear to auscultation, Normal air movement Cardiovascular: Regular rate, No murmurs Abdomen: Bowel Sounds Present, Soft, Non Tender Extremities: No edema, Capillary Refill Less than 3 Seconds Skin: No rashes, No breakdown Musculoskeletal: No Tenderness to Palpation of Joints or Extremities Neurological: Cranial nerves II-XII grossly intact Psych/Mental Status: Normal Affect, Appropriate Vital Signs Temp Pulse Resp BP Pulse Ox 98.3 F 82 29 H 130/71 H 89 05/21/17 01:00 05/21/17 08:00 05/21/17 06:00 05/21/17 06:00 05/21/17 06:00 Oxygen Delivery Method Room Air Weight: 78.1 kg Body Mass Index (BMI) 26.5 Finger Stick Blood Glucose 123 Intake and Output for Last 24 Hours 05/19/17 05/20/17 05/21/17 23:59 23:59 23:59 Intake Total 120 / 120 960 / 960 Output Total 600 / 600 Balance 120 / 120 360 / 360 Laboratory Tests Past 24 Hrs 05/20/17 05/20/17 05/20/17 13:41 14:18 14:45 WBC RBC Hgb Hct MCV MCH MCHC RDW RDW Differential Plt Count MPV Activated Clotting Time 180 H 213 H Sodium Potassium Chloride Carbon Dioxide Anion Gap BUN Creatinine Estim Creat Clear Calc Est GFR (MDRD) Af Amer Est GFR (MDRD) Non-Af BUN/Creatinine Ratio Glucose Calcium Total Creatine Kinase Triglycerides Cholesterol LDL Cholesterol VLDL Cholesterol HDL Cholesterol MRSA (PCR) Negative 05/20/17 05/20/17 05/20/17 15:00 15:00 16:37 WBC 7.9 RBC 3.23 L Hgb 10.1 L Hct 30.3 L MCV 93.8 MCH 31.3 MCHC 33.3 RDW 15.5 H RDW Differential 53.1 H Plt Count 243 MPV 10.4 Activated Clotting Time 169 H Sodium Potassium Chloride Carbon Dioxide Anion Gap BUN Creatinine Estim Creat Clear Calc Est GFR (MDRD) Af Amer Est GFR (MDRD) Non-Af BUN/Creatinine Ratio Glucose Calcium Total Creatine Kinase 54 Triglycerides Cholesterol LDL Cholesterol VLDL Cholesterol HDL Cholesterol MRSA (PCR) 05/20/17 05/20/17 05/21/17 21:15 21:15 04:00 WBC 7.6 RBC 3.24 L Hgb 9.9 L Hct 30.4 L MCV 93.8 MCH 30.6 MCHC 32.6 RDW 15.8 H RDW Differential 54.4 H Plt Count 241 MPV 10.0 Activated Clotting Time Sodium Potassium Chloride Carbon Dioxide Anion Gap BUN Creatinine Estim Creat Clear Calc Est GFR (MDRD) Af Amer Est GFR (MDRD) Non-Af BUN/Creatinine Ratio Glucose Calcium Total Creatine Kinase 47 44 Triglycerides Cholesterol LDL Cholesterol VLDL Cholesterol HDL Cholesterol MRSA (PCR) 05/21/17 05/21/17 04:00 04:00 WBC 7.6 RBC 3.10 L Hgb 9.9 L Hct 29.6 L MCV 95.5 H MCH 31.9 MCHC 33.4 RDW 15.5 H RDW Differential 52.0 H Plt Count 219 MPV 10.2 Activated Clotting Time Sodium 137 Potassium 4.0 Chloride 102 Carbon Dioxide 27.0 Anion Gap 8 BUN 20 H Creatinine 4.12 H Estim Creat Clear Calc 14.93 Est GFR (MDRD) Af Amer 18 L Est GFR (MDRD) Non-Af 15 L BUN/Creatinine Ratio 4.9 L Glucose 172 H Calcium 7.9 L Total Creatine Kinase Triglycerides 89 Cholesterol 98 LDL Cholesterol 43 VLDL Cholesterol 18 HDL Cholesterol 37 L MRSA (PCR) Assessment/Plan Active and Suspected Problems (Last Reviewed 05/15/17 @ 14:12 by Deedee Carlos) ESRD (end stage renal disease) (Acute) ESRD (end stage renal disease) on dialysis (Acute) ESRD. HD today. seen on dialysis. see orders and flowsheets. BP is 135/45. Access is RIJ TDC. UF 1 L as tolerated. he is close to EDW CAD s/p stenting. no complaints dc today after HD
--- NOTE | 2017-05-21 14:16 | DIALYSIS ---
HD x 3 hours and 45 min complete. Tolerated tx well. UF of 800ml. Ran on 3k bath. Used right chest wall catheter. Catheter closed with heparin per fill volume. Calcitriol given as ordered. Report was given to Mirella.
[2017-05-21] MEDS: Clopidogrel Bisulfate 75 MG Tablet PO (14:21)
[2017-05-21] MEDS: Aspirin 81 MG TAB.CHEW PO (14:21)
[2017-05-21] MEDS: Carvedilol 12.5 MG Tablet PO (14:21)
[2017-05-21] MEDS: Heparin 10,000 UNITS/10 ML Vial IV (14:22)
[2017-05-21] MEDS: Calcitriol 0.25 MCG Capsule 0.5 MCG PO (14:22)
--- NOTE | 2017-05-21 14:30 | EKG12_ITS ---
Test Reason : AM EKG Blood Pressure : / mmHG Vent. Rate : 081 BPM Atrial Rate : 081 BPM P-R Int : 276 ms QRS Dur : 146 ms QT Int : 412 ms P-R-T Axes : 063 058 244 degrees QTc Int : 478 ms Sinus rhythm with 1st degree A-V block Right bundle branch block T wave abnormality, consider inferolateral ischemia Abnormal ECG Confirmed by ERIN EDEN, MARIO ([id number]), photographic editor LAITH OSULLIVAN ([id number]) on 05/27/2017 1:25:06 PM Referred By: Saroj Luna Confirmed By:MARIO KHAN MD
== END 2017-05-21 14:55 | disposition home or self-care (01) ==
LOC: CLSP 09:39 → ICU 14:51
PROVIDERS: Family Provider Family Medicine; PCP Family Medicine; Visit Provider Internal Medicine Cardiovascular Disease
DX: I25.110 Atherosclerotic heart disease of native coronary artery with unstable angina pectoris (principal); T82.858A Stenosis of other vascular prosthetic devices, implants and grafts, initial encounter; Y71.3 Surgical instruments, materials and cardiovascular devices (including sutures) associated with adverse incidents; E78.5 Hyperlipidemia, unspecified; E11.22 Type 2 diabetes mellitus with diabetic chronic kidney disease; I13.2 Hypertensive heart and chronic kidney disease with heart failure and with stage 5 chronic kidney disease, or end stage renal disease; I50.9 Heart failure, unspecified; N18.6 End stage renal disease; I25.2 Old myocardial infarction; I25.5 Ischemic cardiomyopathy; I27.29 Other secondary pulmonary hypertension; I48.0 Paroxysmal atrial fibrillation; Z79.899 Other long term (current) drug therapy; Z79.82 Long term (current) use of aspirin; Z79.02 Long term (current) use of antithrombotics/antiplatelets; Z99.2 Dependence on renal dialysis; I45.10 Unspecified right bundle-branch block; R94.31 Abnormal electrocardiogram [ECG] [EKG]
CPT/HCPCS: 80048; 80061; 82550; 82962; 85027; 85347; 87641; 90937; 92928; 92929; 93005; 97802; C1760; J7030; J7040; Q9967; A4216; C1725; C1769; C1874; C1887; C1894; C9600; C9601; G0257

== ENCOUNTER 2017-06-08 08:37 | Day surgery (SDC) | payer MEDICARE, SELFPAY ==
[2017-05-20 15:37] VITALS: BMI 26.9
[2017-06-02 13:07] LABS: Anion Gap 6 (5-15); BUN 5 mg/dL (7-18); BUN/Creat Ratio 2.8 RATIO (10-20); Calcium,Total 7.5 mg/dL (8.5-10.1); Chloride 99 mmol/L (98-107); Creatinine, Serum 1.79 mg/dL (0.70-1.30); EST Glomerular Filtration Rate 40 mL/min (>60); Est Glom Filt Rate - Afr Amer 48 mL/min (>60); Glucose 137 mg/dL (74-106); Potassium 3.3 mmol/L (3.5-5.1); Sodium Level 138 mmol/L (136-145)
[2017-06-08] VITALS (7 sets, daily range): BP systolic 109–128; BP diastolic 62–75; PULSE 62–70; RESP 16; TEMP 36–36.9; O2SAT 93–98; BMI 32.7
[2017-06-08 09:25] LABS: Bedside Glucose 138 mg/dL (70-110)
[2017-06-08 09:39] LABS: Anion Gap 10 (5-15); BUN 16 mg/dL (7-18); BUN/Creat Ratio 4.4 RATIO (10-20); Calcium,Total 8.8 mg/dL (8.5-10.1); Chloride 101 mmol/L (98-107); Creatinine, Serum 3.63 mg/dL (0.70-1.30); EST Glomerular Filtration Rate 18 mL/min (>60); Est Glom Filt Rate - Afr Amer 21 mL/min (>60); Estimated Creatinine Clearance 16.94 ml/min; Glucose 140 mg/dL (74-106); Potassium 3.3 mmol/L (3.5-5.1); Sodium Level 137 mmol/L (136-145)
[2017-06-08] MEDS: Bupivacaine Mpf 0.5% 30 ML VIAL (12:47)
--- NOTE | 2017-06-08 12:53 | PCM.DC.FIST ---
Discharge Diet: Renal Diet Discharge Activity: May Not Drive - for 2-3 days or while taking narcotic pain medications., May Not Shower, May Take a Tub Bath - in 5 days. Lifting Restrictions: 5 pounds Keep extremity elevated above heart level: - - Keep arm elevated above the heart level for 3 days. Additional Activity Instructions:: Exercise hand vigorously with a stress ball. Call your doctor if your incision/area has: Continuous Slow Oozing, Sudden Increased Bleeding - apply pressure and call your doctor., Increased Pain/ Swelling, Increased Redness, Foul Smelling Discharge Call your doctor if you observe: Fever of 101 or Higher Suture Line Care: Avoid Pulling/Pushing, Avoid Pinching/Bending Cleanse incision/area with: Keep Dressing Clean & Dry Additional Dressing/Incision Instructions:: Please keep your left arm dressed and elevated for comfort. Office appt on with Aydee please Allergies/Adverse Reactions: Allergies codeine Allergy (Verified 06/01/17 10:58) Itching Medications to take at Discharge clopidogrel 75 mg tablet 75 mg PO QHS 04/27/17 pravastatin 80 mg tablet 80 mg PO QHS #30 tab 04/27/17 aspirin 81 mg chewable tablet 81 mg PO QDAY tab 04/28/17 Amlodipine [Norvasc] 10 mg PO QHS 06/01/17 Carvedilol [Coreg] 12.5 mg PO BID 06/01/17 Linagliptin [Tradjenta] 5 mg PO QHS 06/01/17 Primary Care Physician: Sean Medina MD [Primary Care Provider] - Please Follow Up With: Kristian Gunn MD - [phone] When: Appt on with Aydee please
--- NOTE | 2017-06-08 12:55 | PCM.OPRPT ---
Problem List (1) ESRD (end stage renal disease) on dialysis Status: Chronic Report of Operation Date of Procedure: 06/08/17 Pre-Operative Diagnosis: End-stage renal failure in need of arteriovenous access Post-Operative Diagnosis: Same Surgery/Procedure Performed:: Transposition left forearm cephalic vein to radial artery arteriovenous fistula creation Description of Surgical Findings:: Timeout and informed consent was obtained. 71-year-old gent was taken out from placement table. Underwent monitored anesthesia care. 21 cc of 1% lidocaine mixed 50-50 with 0.5% Marcaine was utilized and 12 cc of 0.5% lidocaine. Ultrasound was used to identify the cephalic vein. It was marked. Then the arm was prepped. Local was instilled. A longitudinal incision was made over the vein and the vein was harvested with securing side branches with 4-0 Vicryl ligatures and hemoclips were indicated. The vein was dissected free distally to a branch point in the more proximally right up to the antecubital crease. Then close to the wrist after measurement sharp and blunt dissection was used to identify the radial artery and circumferential control was obtained. A vessel loop was placed. A tunnel was then made from the radial artery to the antecubital space medial to the harvest incision. The vein was ligated distally. The patient was given 9000 units of heparin. The vein and was spatulated and then irrigated. Good diameter was achieved. The vein was tunneled from the antecubital space to the radial artery. Peripheral vascular clamps are placed on the radial artery and 11 blade was used to make an arteriotomy which was extended with Rojo scissors. A end-to-side anastomosis was created with a running 7-0 Prolene. Prior to completion is good antegrade and retrograde flow. The anastomosis was completed with the immediate good flow throughout the fistula. Doppler confirmed excellent signal. The vein was in good positional lie. Hand appear to be viable. The patient received total 30 mg of protamine his reversal agent. The wounds were closed with deep layer of interrupted or running septic or 3-0 Vicryl. The skin edges proximate running septic or 4-0 Monocryl. Steri-Strips Telfa soft roll Alfa wrap applied. Sponge instrument and needle counts were reported to the surgeon to be correct. Estimates none. Drains none. Blood loss 200 cc. Kristian Gunn M.D., F.A.C.SVanessa Type of Anesthesia:: Local MAC Anesthesiologist: Bradford Coley
== END 2017-06-08 14:59 | disposition home or self-care (01) ==
LOC: SDC 08:38 → AC 08:39
PROVIDERS: Family Provider Family Medicine; PCP Family Medicine; Visit Provider Surgery
PROC: (CPT 36820; principal; 2017-06-08 10:45)
DX: I12.0 Hypertensive chronic kidney disease with stage 5 chronic kidney disease or end stage renal disease (principal); E11.22 Type 2 diabetes mellitus with diabetic chronic kidney disease; N18.6 End stage renal disease; Z99.2 Dependence on renal dialysis; I25.110 Atherosclerotic heart disease of native coronary artery with unstable angina pectoris; I48.0 Paroxysmal atrial fibrillation; I27.29 Other secondary pulmonary hypertension; I25.5 Ischemic cardiomyopathy; E78.5 Hyperlipidemia, unspecified; I25.2 Old myocardial infarction; F17.200 Nicotine dependence, unspecified, uncomplicated; Z79.84 Long term (current) use of oral hypoglycemic drugs; Z79.82 Long term (current) use of aspirin; Z79.899 Other long term (current) drug therapy
CPT/HCPCS: 36820; 36415; 80048; 82962; J7120

== ENCOUNTER → 2017-07-23 12:47 | Outpatient (CLI) | payer MEDICARE, MEDICAID, SELFPAY ==
[2017-05-20 15:37] VITALS: BMI 26.9
[2017-07-23 13:54] LABS: Absolute Lymphocyte Count 1.15 X10^3/ul (0.83-4.51); Absolute Neutrophil Count 5.7 X10^3/uL (2.0-7.7); Basophil# 0.01 X10^3/uL; Basophil% 0.1 % (0-1); Eosinophils% 2.5 % (0-5); Hemoglobin 10.9 g/dl (13.0-16.5); Lymphocyte # 1.15 X10^3/ul (4.0); Lymphocyte % 14.6 % (19-41); Mean Corp Hgb Conc 34.1 g/gl (32-36); Mean Corpuscular Hgb 33.1 pg (27.0-32.0); Mean Corpuscular Volume 97.3 fL (80-94); Mean Platelet Vol. 10.7 fl (6.2-12.0); Monocyte# 0.81 X10^3/uL; Monocyte% 10.3 % (0-10); Neutrophil % 72.2 % (47-70); Platelet Count 225 K/mm3 (150-450); RBC Distribution Width CV 14.6 % (11.6-14.6); RBC Distribution Width SD 48.2 fl (35.1-43.9); Red Blood Count 3.29 M/mm3 (4.6-6.2); White Blood Count 7.9 K/mm3 (4.4-11.0)
[2017-07-23 13:57] LABS: POSITIVE COUNT NO; POSITIVE DIFFERENTIAL NO; POSITIVE MORPHOLOGY NO
[2017-07-23 14:07] LABS: Hemoglobin A1c 5.8 % (4.2-6.3)
[2017-07-23 14:26] LABS: ALB/GLOB Ratio 0.7 RATIO (0.9-2.4); AST(SGOT) 12 U/L (15-37); Alanine Aminotransfer ALT/SGPT 11 U/L (16-61); Alkaline Phosphatase 97 U/L (45-117); Anion Gap 7 (5-15); BUN 5 mg/dL (7-18); BUN/Creat Ratio 2.4 RATIO (10-20); Calcium,Total 7.7 mg/dL (8.5-10.1); Chloride 97 mmol/L (98-107); Cholesterol 185 mg/dL (200); Creatinine, Serum 2.05 mg/dL (0.70-1.30); EST Glomerular Filtration Rate 34 mL/min (>60); Est Glom Filt Rate - Afr Amer 41 mL/min (>60); Ferritin 774 ng/mL (26-388); Globulin 4.4 g/dL (2.2-4.2); Glucose 149 mg/dL (74-106); High Density Lipoprotein 45 mg/dL; Iron 62 ug/dL (65-175); Iron Binding Capacity,Total 181 ug/dL (250-450); Potassium 3.2 mmol/L (3.5-5.1); Protein, Total 7.4 g/dL (6.4-8.2); Sodium Level 137 mmol/L (136-145); T4 Free Direct 1.15 ng/dL (0.76-1.46); Thyroid Stim Hormone (TSH) 1.15 uIU/mL (0.358-3.74); Triglycerides 108 mg/dL; Very Low Density Lipoprotein 22 mg/dL (5-40)
[2017-07-28 11:29] LABS: Vitamin D 1,25-Dihydroxy 29.5 pg/mL (19.9-79.3)
[2017-07-29 11:30] LABS: Anti-Thyroglobulin AB 50.9 IU/mL (0.0-0.9); Thyroglobulin RIA 7.3 ng/mL (.)
== END ==
PROVIDERS: Family Provider Family Medicine; PCP Family Medicine; Visit Provider Family Medicine
DX: I50.22 Chronic systolic (congestive) heart failure (principal); E11.9 Type 2 diabetes mellitus without complications; E55.9 Vitamin D deficiency, unspecified
CPT/HCPCS: 36415; 80053; 80061; 82652; 82728; 83036; 83540; 83550; 84432; 84439; 84443; 85025; 86800

== ENCOUNTER 2017-09-15 08:57 | Day surgery (SDC) | payer MEDICARE, MEDICAID, SELFPAY ==
[2017-05-20 15:37] VITALS: BMI 26.9
[2017-09-10 11:56] LABS: Hematocrit 32.8 % (40-54); Hemoglobin 10.8 g/dl (13.0-16.5); Mean Corp Hgb Conc 32.9 g/gl (32-36); Mean Corpuscular Hgb 31.2 pg (27.0-32.0); Mean Corpuscular Volume 94.8 fL (80-94); Mean Platelet Vol. 10.7 fl (6.2-12.0); Platelet Count 183 K/mm3 (150-450); RBC Distribution Width CV 14.3 % (11.6-14.6); RBC Distribution Width SD 49.4 fl (35.1-43.9); Red Blood Count 3.46 M/mm3 (4.6-6.2); White Blood Count 5.9 K/mm3 (4.4-11.0)
[2017-09-10 11:57] LABS: Scan Indicated on CBC? Y/N NO
[2017-09-10 12:19] LABS: Anion Gap 9 (5-15); BUN 5 mg/dL (7-18); BUN/Creat Ratio 2.4 RATIO (10-20); Calcium,Total 8.1 mg/dL (8.5-10.1); Chloride 100 mmol/L (98-107); Creatinine, Serum 2.07 mg/dL (0.70-1.30); EST Glomerular Filtration Rate 34 mL/min (>60); Est Glom Filt Rate - Afr Amer 41 mL/min (>60); Glucose 127 mg/dL (74-106); Potassium 3.2 mmol/L (3.5-5.1); Sodium Level 141 mmol/L (136-145)
--- NOTE | 2017-09-15 12:16 | PCM.OPRPT ---
Problem List (1) Problem with dialysis access Status: Acute Qualifiers: Encounter type: initial encounter Qualified Code(s): T82.898A - Other specified complication of vascular prosthetic devices, implants and grafts, initial encounter Report of Operation Date of Procedure: 09/15/17 Pre-Operative Diagnosis: Diminished flow transposed left forearm cephalic vein to radial artery arteriovenous fistula with increased bleeding Post-Operative Diagnosis: Upper arm cephalic vein outflow high-grade stenosis ?2. Occlusion antecubital left upper extremity basilic vein Surgery/Procedure Performed:: Double access left upper extremity fistulogram with 6 x 80 mm ever cross angioplasty Description of Surgical Findings:: Timeout and informed consent was obtained. 71-year-old gent was taken the special procedures lab. He was placed on the table. The left upper extremity sterilely prepped draped. Ultrasound was used to identify the cephalic vein close to the antecubital space retrograde with flow. Under ultrasound guidance 2% lidocaine was instilled. Micropuncture needle inserted. Micropuncture wire inserted. A 4 Singaporean angled glide cath was used to place a 035 stiff Glidewire into the radial artery. [place] cath was advanced. A fistulogram was performed was obtained during moderate stenosis of the vein. So a 6 x 8 mm ever cross balloon was placed balloon angioplasty of the very proximal portion of the fistula was performed up to 14 brittany. An injection view demonstrated improvement. Subsequently further images were taken of the upper arm and chest area. This demonstrated occlusion of the basilic vein at the antecubital space. It demonstrated 2 areas of high-grade venous stenosis of the left upper arm cephalic vein. Central access was now again in the forearm antegrade with flow again ultrasound to cephalic veins local was instilled micropuncture needle inserted 6 Singaporean short sheath dilator was inserted. Using the angled Glidewire access was gained to the cephalic vein of the upper arm. Balloon angioplasty of both sites of high-grade narrowing were performed with the 6 x 80 mm ever cross. Couple insufflations required for each area. Final hand-injection demonstrated improvement. There was return of her thrill in the fistula. Devices were removed 2 sutures of 4-0 nylon were placed at both sheath site hemostasis was intact there was a strong pulse, thrill, bruit at the completion apparent complication he tolerated it well. Findings demonstrate a transposed cephalic vein radial artery AV fistula performed with a widely patent arterial anastomosis. There is some mild tendinosis of the proximal vein. There is occlusion of the basilic vein at the antecubital space with refill further up the arm. There is 2 areas of high-grade stenosis of the left upper arm cephalic vein. One is over approximately 3 cm and about 70% stenosis yet there is a very focal area of high-grade 90% stenosis. There otherwise appears to be adequate central venous outflow. Subsequent to the angioplasty there appears to be improvement of the cephalic vein in the distal upper arm with improved flow noted. 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 Kristian Gunn M.D., F.A.C.S. Type of Anesthesia:: Local
--- NOTE | 2017-09-15 12:21 | OP.PCM_ITS ---
Problem List (1) Problem with dialysis access Status: Acute Qualifiers: Encounter type: initial encounter Qualified Code(s): T82.898A - Other specified complication of vascular prosthetic devices, implants and grafts, initial encounter Report of Operation Date of Procedure: 09/15/17 Pre-Operative Diagnosis: Diminished flow transposed left forearm cephalic vein to radial artery arteriovenous fistula with increased bleeding Post-Operative Diagnosis: Upper arm cephalic vein outflow high-grade stenosis ? 2. Occlusion antecubital left upper extremity basilic vein Surgery/Procedure Performed:: Double access left upper extremity fistulogram with 6 x 80 mm ever cross angioplasty Description of Surgical Findings:: Timeout and informed consent was obtained. 71-year-old gent was taken the special procedures lab. He was placed on the table. The left upper extremity sterilely prepped draped. Ultrasound was used to identify the cephalic vein close to the antecubital space retrograde with flow. Under ultrasound guidance 2% lidocaine was instilled. Micropuncture needle inserted. Micropuncture wire inserted. A 4 Martiniquais angled glide cath was used to place a 035 stiff Glidewire into the radial artery. [place] cath was advanced. A fistulogram was performed was obtained during moderate stenosis of the vein. So a 6 x 8 mm ever cross balloon was placed balloon angioplasty of the very proximal portion of the fistula was performed up to 14 brittany. An injection view demonstrated improvement. Subsequently further images were taken of the upper arm and chest area. This demonstrated occlusion of the basilic vein at the antecubital space. It demonstrated 2 areas of high-grade venous stenosis of the left upper arm cephalic vein. Central access was now again in the forearm antegrade with flow again ultrasound to cephalic veins local was instilled micropuncture needle inserted 6 Martiniquais short sheath dilator was inserted. Using the angled Glidewire access was gained to the cephalic vein of the upper arm. Balloon angioplasty of both sites of high-grade narrowing were performed with the 6 x 80 mm ever cross. Couple insufflations required for each area. Final hand- injection demonstrated improvement. There was return of her thrill in the fistula. Devices were removed 2 sutures of 4-0 nylon were placed at both sheath site hemostasis was intact there was a strong pulse, thrill, bruit at the completion apparent complication he tolerated it well. Findings demonstrate a transposed cephalic vein radial artery AV fistula performed with a widely patent arterial anastomosis. There is some mild tendinosis of the proximal vein. There is occlusion of the basilic vein at the antecubital space with refill further up the arm. There is 2 areas of high- grade stenosis of the left upper arm cephalic vein. One is over approximately 3 cm and about 70% stenosis yet there is a very focal area of high-grade 90% stenosis. There otherwise appears to be adequate central venous outflow. Subsequent to the angioplasty there appears to be improvement of the cephalic vein in the distal upper arm with improved flow noted. 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 Kristian Gunn M.D., F.A.C.S. Type of Anesthesia:: Local
== END 2017-09-15 13:15 | disposition home or self-care (01) ==
LOC: CLSP 08:58
PROVIDERS: Family Provider Family Medicine; PCP Family Medicine; Visit Provider Surgery
DX: T82.590A Other mechanical complication of surgically created arteriovenous fistula, initial encounter (principal); I12.0 Hypertensive chronic kidney disease with stage 5 chronic kidney disease or end stage renal disease; E11.22 Type 2 diabetes mellitus with diabetic chronic kidney disease; N18.6 End stage renal disease; Z99.2 Dependence on renal dialysis; I27.20 Pulmonary hypertension, unspecified; I25.5 Ischemic cardiomyopathy; I34.0 Nonrheumatic mitral (valve) insufficiency; I48.0 Paroxysmal atrial fibrillation; I25.110 Atherosclerotic heart disease of native coronary artery with unstable angina pectoris; E78.5 Hyperlipidemia, unspecified; E87.5 Hyperkalemia; I25.2 Old myocardial infarction; Z79.02 Long term (current) use of antithrombotics/antiplatelets; Z79.82 Long term (current) use of aspirin; Z79.899 Other long term (current) drug therapy; Z95.5 Presence of coronary angioplasty implant and graft
CPT/HCPCS: 36415; 36902; 76937; 80048; 85027; Q9967; C1725; C1769

== ENCOUNTER 2017-11-12 08:44 | Day surgery (SDC) | payer MEDICARE, MEDICAID, SELFPAY ==
[2017-05-20 15:37] VITALS: BMI 26.9
[2017-11-10 14:05] VITALS: BMI 25.0
[2017-11-12 09:15] LABS: Hematocrit 36.9 % (40-54); Hemoglobin 11.6 g/dl (13.0-16.5); Mean Corp Hgb Conc 31.4 g/gl (32-36); Mean Corpuscular Hgb 31.5 pg (27.0-32.0); Mean Corpuscular Volume 100.3 fL (80-94); Mean Platelet Vol. 10.8 fl (6.2-12.0); Platelet Count 187 K/mm3 (150-450); RBC Distribution Width CV 16.7 % (11.6-14.6); RBC Distribution Width SD 61.5 fl (35.1-43.9); Red Blood Count 3.68 M/mm3 (4.6-6.2); White Blood Count 8.1 K/mm3 (4.4-11.0)
[2017-11-12 09:18] LABS: Scan Indicated on CBC? Y/N NO
[2017-11-12 09:29] LABS: Anion Gap 8 (5-15); BUN 31 mg/dL (7-18); Calcium,Total 8.8 mg/dL (8.5-10.1); Chloride 102 mmol/L (98-107); Creatinine, Serum 5.19 mg/dL (0.70-1.30); EST Glomerular Filtration Rate 12 mL/min (>60); Est Glom Filt Rate - Afr Amer 14 mL/min (>60); Estimated Creatinine Clearance 11.67 ml/min; Glucose 139 mg/dL (74-106); Potassium 5.6 mmol/L (3.5-5.1); Sodium Level 135 mmol/L (136-145)
--- NOTE | 2017-11-12 12:44 | PCM.OPRPT ---
Problem List (1) Problem with dialysis access Status: Acute Qualifiers: Encounter type: subsequent encounter Qualified Code(s): T82.898D - Other specified complication of vascular prosthetic devices, implants and grafts, subsequent encounter Report of Operation Date of Procedure: 11/12/17 Pre-Operative Diagnosis: Increased bleeding left radiocephalic arteriovenous fistula Post-Operative Diagnosis: Multiple areas of venous stenosis within the left proximal forearm and upper arm AV fistula Surgery/Procedure Performed:: Left upper extremity fistulogram with multiple 7-8 areas of 7 x 20 mm cutting balloon angioplasty Description of Surgical Findings:: Timeout informed consent was obtained. Patient was taken to the special procedure room placed on the table. He requested absolutely no IV sedative. The left upper extremity sterilely prepped draped. Close to the wrist antegrade with flow 2% lidocaine was instilled. Micropuncture needle inserted micropuncture wire inserted 6 [place] short sheath was inserted. Fistulogram was obtained of the upper arm. This demonstrated areas of stenosis at the antecubital space. Within the mid upper arm. Within the proximal upper arm ?3 areas. Cephalic arch ?3 areas Subsequently subsequently up sheath over an 035 angled Glidewire to a 7 [place] sheath. A 7 x 2 cutting balloon was inserted and multiple insufflations at each of the areas of tight stenosis were performed. All of these areas appear to be clinically significant. 3-4 insufflations required for each area. Over an hour of total angioplasty was required for resolution. At the completion final fistulogram demonstrated improvement at all areas. The sheath was removed and a U suture of 4-0 nylon was placed. There was a pulse and thrill within the fistula at the completion. Images show a left forearm radiocephalic arteriovenous fistula. There is areas of stenosis in the proximal forearm upper arm and cephalic arch multiple locations. There is occlusion of the left upper arm basilic vein after very short takeoff. All of the flow is via the cephalic vein. There is good central venous outflow. At the conclusion of the angioplasty there is improved flow at all locations. Specimens none. Blood loss minimal. Drains none. Kristian Gunn M.D., F.A.C.S. Type of Anesthesia:: Local
== END 2017-11-12 13:30 | disposition home or self-care (01) ==
PROVIDERS: Family Provider Family Medicine; PCP Family Medicine; Visit Provider Surgery
DX: T82.838A Hemorrhage due to vascular prosthetic devices, implants and grafts, initial encounter (principal); I87.1 Compression of vein; I12.0 Hypertensive chronic kidney disease with stage 5 chronic kidney disease or end stage renal disease; E11.22 Type 2 diabetes mellitus with diabetic chronic kidney disease; N18.6 End stage renal disease; Z99.2 Dependence on renal dialysis; I25.110 Atherosclerotic heart disease of native coronary artery with unstable angina pectoris; I27.29 Other secondary pulmonary hypertension; I25.5 Ischemic cardiomyopathy; I48.0 Paroxysmal atrial fibrillation; E78.4 Other hyperlipidemia; I25.2 Old myocardial infarction; Z79.02 Long term (current) use of antithrombotics/antiplatelets; Z79.82 Long term (current) use of aspirin; Z79.899 Other long term (current) drug therapy; Z95.5 Presence of coronary angioplasty implant and graft
CPT/HCPCS: 36415; 36902; 80048; 85027; C1725; Q9967; C1769; C1894

== ENCOUNTER → 2018-03-09 12:18 | Outpatient (CLI) | payer MEDICARE, MEDICAID, SELFPAY ==
[2017-05-20 15:37] VITALS: BMI 26.9
[2018-03-09 12:18] VITALS: BMI 27.0
[2018-03-09 14:52] LABS: Absolute Neutrophil Count 4.7 X10^3/uL (2.0-7.7); Basophil# 0.01 X10^3/uL; Basophil% 0.2 % (0-1); Eosinophil# 0.12 X10^3/uL; Eosinophils% 1.9 % (0-5); Hematocrit 35.6 % (40-54); Hemoglobin 11.5 g/dl (13.0-16.5); Lymphocyte % 14.1 % (19-41); Mean Corp Hgb Conc 32.3 g/gl (32-36); Mean Corpuscular Hgb 33.8 pg (27.0-32.0); Mean Corpuscular Volume 104.7 fL (80-94); Mean Platelet Vol. 10.7 fl (6.2-12.0); Monocyte# 0.62 X10^3/uL; Monocyte% 9.7 % (0-10); Neutrophil # 4.73 X10^3/uL (2.7-7.7); Neutrophil % 73.9 % (47-70); Platelet Count 186 K/mm3 (150-450); RBC Distribution Width CV 15.9 % (11.6-14.6); RBC Distribution Width SD 60.5 fl (35.1-43.9); White Blood Count 6.4 K/mm3 (4.4-11.0)
[2018-03-09 14:53] LABS: POSITIVE COUNT NO; POSITIVE DIFFERENTIAL NO; POSITIVE MORPHOLOGY NO
[2018-03-09 15:09] LABS: ALB/GLOB Ratio 0.9 RATIO (0.9-2.4); AST(SGOT) 22 U/L (15-37); Alanine Aminotransfer ALT/SGPT 18 U/L (16-61); Albumin, Serum 3.3 g/dL (3.2-5.0); Alkaline Phosphatase 170 U/L (45-117); Anion Gap 11 (5-15); BUN 20 mg/dL (7-18); BUN/Creat Ratio 5.6 RATIO (10-20); Calcium,Total 7.8 mg/dL (8.5-10.1); Chloride 96 mmol/L (98-107); Cholesterol 155 mg/dL (200); Creatinine, Serum 3.55 mg/dL (0.70-1.30); EST Glomerular Filtration Rate 18 mL/min (>60); Est Glom Filt Rate - Afr Amer 22 mL/min (>60); Globulin 3.7 g/dL (2.2-4.2); Glucose 82 mg/dL (74-106); High Density Lipoprotein 49 mg/dL; Potassium 3.5 mmol/L (3.5-5.1); Sodium Level 140 mmol/L (136-145); T4 Free Direct 1.19 ng/dL (0.76-1.46); Triglycerides 95 mg/dL; Very Low Density Lipoprotein 19 mg/dL (5-40)
[2018-03-09 15:14] LABS: BNP,B-Type NATRIURETIC PEPTIDE > 5000.0 pg/mL (0-100)
--- OUTSIDE RECORDS SUMMARY | 2018-06-10 22:11 | XMS RPT_ITS ---
:1945 External Reference #:[id number] Author Organization OHIP Support Name Relationship Address Phone R Unavailable Unavailable Unavailable SMETZER, EDUARDO Unavailable UNKNOWN + [place] [address] R Unavailable Unavailable Unavailable SMETZER, EDUARDO Unavailable UNKNOWN + [place] [address] R Unavailable Unavailable Unavailable SMETZER, EDUARDO Unavailable Unavailable + [place] [address] R Unavailable Unavailable Unavailable SMETZER, EDUARDO Unavailable . + [place] [address] R Unavailable Unavailable Unavailable SMETZER, EDUARDO Unavailable Unavailable + [place] [address] R Unavailable Unavailable Unavailable SMETZER, EDUARDO Unavailable Unavailable + [place] [address] R Unavailable Unavailable Unavailable SMETZER, EDUARDO Unavailable . + [place] [address] R Unavailable Unavailable Unavailable SMETZER, EDUARDO Unavailable . + [place] [address] R Unavailable Unavailable Unavailable SMETZER, EDUARDO Unavailable Unavailable + [place] [address] R Unavailable Unavailable Unavailable SMETZER, EDUARDO Unavailable Unavailable + [place] [address] R Unavailable Unavailable Unavailable SMETZER, EDUARDO Unavailable . + [place] [address] R Unavailable Unavailable Unavailable SMETZER, EDUARDO Unavailable . + [place] [address] R Unavailable Unavailable Unavailable SMETZER, EDUARDO Unavailable . + [place] [address] R Unavailable Unavailable Unavailable SMETZER, EDUARDO Unavailable . + [place] [address] R Unavailable Unavailable Unavailable SMETZER, EDUARDO Unavailable . + [place] [address] R Unavailable Unavailable Unavailable SMETZER, EDUARDO Unavailable . + [place] [address] R Unavailable Unavailable Unavailable SMETZER, EDUARDO Unavailable . + [place] [address] R Unavailable Unavailable Unavailable SMETZER, EDUARDO Unavailable . + [place] [address] R Unavailable Unavailable Unavailable SMETZER, EDUARDO Unavailable Unavailable + [place] [address] R Unavailable Unavailable Unavailable SMETZER, EDUARDO Unavailable . + [place] [address] R Unavailable Unavailable Unavailable SMETZER, EDUARDO Unavailable . + [place] [address] R Unavailable Unavailable Unavailable SMETZER, EDUARDO Unavailable Unavailable + [place] [address] R Unavailable Unavailable Unavailable SMETZER, EDUARDO Unavailable . + [place] [address] R Unavailable Unavailable Unavailable SMETZER, EDUARDO Unavailable . + [place] [address] R Unavailable Unavailable Unavailable SMETZER, EDUARDO Unavailable . + [place] [address] R Unavailable Unavailable Unavailable SMETZER, EDUARDO Unavailable Unavailable + [place] [address] R Unavailable Unavailable Unavailable SMETZER, EDUARDO Unavailable . + [place] [address] R Unavailable Unavailable Unavailable SMETZER, EDUARDO Unavailable . + [place] [address] R Unavailable Unavailable Unavailable SMETZER, EDUARDO Unavailable . + [place] [address] R Unavailable Unavailable Unavailable SMETZER, EDUARDO Unavailable Unavailable + R Unavailable Unavailable Unavailable SMETZER, EDUARDO Unavailable Unavailable + [place] [address] R Unavailable Unavailable Unavailable CARMANDY, PAT Unavailable . + [place] [address] R Unavailable Unavailable Unavailable R Unavailable Unavailable Unavailable CARMANDY, PAT Unavailable . + [place] [address] R Unavailable Unavailable Unavailable SMETZER, EDUARDO Unavailable [address] + [place] [address] CARMANDY, PAT Unavailable . + [place] [address] R Unavailable Unavailable Unavailable SMETZER, EDUARDO Unavailable [address] + [place] [address] R Unavailable Unavailable Unavailable SMETZER, EDUARDO Unavailable . + [place] [address] CARMANDY, PAT Unavailable . + [place] [address] R Unavailable Unavailable Unavailable SMETZER, EDUARDO Unavailable [address] + [place] [address] R Unavailable Unavailable Unavailable SMETZER, EDUARDO Unavailable Unavailable + [place] [address] Care Team Providers Name Role Phone Sean Medina Attending Unavailable Sean Medina Primary Care Unavailable Juan Dan Attending Unavailable Sean Medina Referring Unavailable Juan Dan Attending Unavailable Juan Dan Referring Unavailable Sean Medina Primary Care Unavailable Juan Dan Attending Unavailable Sean Medina Referring Unavailable Sean Medina Primary Care Unavailable Kristian Gunn Attending Unavailable Sean Medina Primary Care Unavailable Kristian Gunn Referring Unavailable Elli FONSECA-Hina, Aydee Attending Unavailable Sean Medina Referring Unavailable Sean Medina Primary Care Unavailable Juan Dan Attending Unavailable Juan Dan Referring Unavailable Saroj Luna Attending Unavailable Elli FONSECA-Hina, Aydee Attending Unavailable SchSean amor E Referring Unavailable SchinSean sifuentes E Primary Care Unavailable Kristian Gunn Attending Unavailable Sean Medina E Referring Unavailable Trevor Bernal Attending Unavailable Saroj Luna Referring Unavailable SchSean amor Attending Unavailable Sean Medina E Primary Care Unavailable SchSean amor E Referring Unavailable Elli FONSECA-CAydee Attending Unavailable SchSean amor Referring Unavailable SchinSean sifuentes E Primary Care Unavailable Elli PA-CAydee Attending Unavailable SchinSean sifuentes E Referring Unavailable Schinner, Sean E Primary Care Unavailable Elli FONSECA-Aydee Santamaria Attending Unavailable SchSean amor E Referring Unavailable Schmt, Sean E Primary Care Unavailable Kristian Gunn Attending Unavailable Kristian Gunn Referring Unavailable SchinSean sifuentes E Primary Care Unavailable Elli FONSECA-Aydee Santamaria Attending Unavailable SchinSean sifuentes E Referring Unavailable Schinbear, Sean E Primary Care Unavailable Trevor Bernal Attending Unavailable Saroj Luna Referring Unavailable Sean Ferguson Attending Unavailable Sean Medina Referring Unavailable Sean Ferguson Attending Unavailable Saroj Luna Referring Unavailable Sean Medina Primary Care Unavailable Charles Scott Consulting Unavailable Saroj Luna Consulting Unavailable Saroj Luna Attending Unavailable Sean Medina Primary Care Unavailable Saroj Luna Referring Unavailable Charles Scott Consulting Unavailable Kristian Gunn Attending Unavailable Sean Medina Referring Unavailable Juan Dan Attending Unavailable Sean Medina Primary Care Unavailable Juan Dan Referring Unavailable Sean Ferguson Attending Unavailable Sean Medina Referring Unavailable SchSean amor Primary Care Unavailable Juan Dan Attending Unavailable Juan Dan Attending Unavailable Juan Dan Referring Unavailable SchSean amor Primary Care Unavailable Juan Dan Attending Unavailable SchSean amor Primary Care Unavailable SchSean amor Attending Unavailable SchinSean sifuentes Referring Unavailable Schmt, Sean E Primary Care Unavailable Elli FONSECA-CAydee Attending Unavailable SchinSean sifuentes E Referring Unavailable Kristian Gunn Attending Unavailable CeKristian watkins Referring Unavailable SchSean amor Primary Care Unavailable Kristian Gunn Consulting Unavailable Kristian Gunn Attending Unavailable Sean Medina E Referring Unavailable Schmt, Sean E Primary Care Unavailable Kristian Gunn Attending Unavailable Kristian Gunn Referring Unavailable SchSean amor E Primary Care Unavailable Mirella Aquino Attending Unavailable Sean Medina Referring Unavailable SchSean amor E Primary Care Unavailable Kristian Gunn Attending Unavailable CeKristian watkins Attending Unavailable Kristian Gunn Referring Unavailable Sean Medina Primary Care Unavailable Kristian Gunn Consulting Unavailable Juan Dan Attending Unavailable Juan Dan Referring Unavailable Juan Dan Attending Unavailable Sean Medina Referring Unavailable Charles Scott Attending Unavailable Sean Medina Primary Care Unavailable PROBLEMS PROBLEMS DATE TYPE CONDITION / CODE ATTENDING STATUS SOURCE 03/29/2018 Unknown I25.10 - [place], Active [place] Atherosclerotic heart [facility] coronary artery Repository without angina pectoris / I25.10(ICD-10) 03/29/2018 Unknown Z98.61 - Coronary [place], Active [place] angioplasty status / [facility] Z98.61(ICD-10) Hospital Repository 11/03/2017 Unknown T82.898A - Other Kristian Gunn Active [place] specified complication [facility] of vascular prosthetic Hospital devices, implants and Repository grafts, initial encounter / T82.898A(ICD-10) 08/04/2017 Unknown N18.6 - End stage Calloway PA-C, Active [place] renal disease / [facility] N18.6(ICD-10) Hospital Repository 08/04/2017 Unknown Z99.2 - Dependence on Calloway PA-C, Active [place] renal dialysis / [facility] Z99.2(ICD-10) Hospital Repository 07/30/2017 Unknown I50.22 - Chronic Sean Medina Active [place] systolic (congestive) E Community heart failure / Hospital I50.22(ICD-10) Repository 07/15/2017 Unknown N18.5 - Chronic kidney Kristian Gunn Active [place] disease, stage 5 / Community N18.5(ICD-10) Hospital Repository 07/06/2017 Unknown I25.110 - [place]abe, [place] Active [place] Atherosclerotic heart [facility] coronary artery with Repository unstable angina pectoris / I25.110(ICD-10) 07/06/2017 Unknown I50.9 - Heart failure, Gabe, Trevor Active [place] unspecified / Community I50.9(ICD-10) Hospital Repository 06/29/2017 Unknown R94.31 - Abnormal Gabe, Trevor Active [place] electrocardiogram Community [ECG] [EKG] / Hospital R94.31(ICD-10) Repository 04/27/2017 Unknown R06.09 - Other forms [place], Active [place] of dyspnea / [facility] R06.09(ICD-10) Hospital Repository 04/27/2017 Unknown I25.5 - Ischemic [place], Active [place] cardiomyopathy / [facility] I25.5(ICD-10) Hospital Repository 04/27/2017 Unknown N18.9 - Chronic kidney [place], Active [place] disease, unspecified / [facility] N18.9(ICD-10) Hospital Repository 04/27/2017 Unknown I36.1 - Nonrheumatic [place], Active [place] tricuspid (valve) [facility] insufficiency / Hospital I36.1(ICD-10) Repository 04/27/2017 Unknown I25.118 - [place], Active [place] Atherosclerotic heart [facility] coronary artery with Repository other forms of angina pectoris / I25.118(ICD-10) 04/27/2017 Unknown I10 - Essential [place], Active [place] (primary) hypertension [facility] / I10(ICD-10) Hospital Repository 04/27/2017 Unknown I21.4 - Non-ST [place], Active [place] elevation (NSTEMI) [facility] myocardial infarction Hospital / I21.4(ICD-10) Repository 06/26/2017 Unknown N18.4 - Chronic kidney Cebul, Kristian Active [place] disease, stage 4 [facility] (severe) / Hospital N18.4(ICD-10) Repository 06/02/2017 Unknown R06.02 - Shortness of [place], Active [place] breath / [facility] R06.02(ICD-10) Hospital Repository PROCEDURES PROCEDURES No Procedure Records FoundRESULTS RESULTS SURGERY VISIT REPORT Observed: 04/13/2018 Status: F Source: [place] 2:29 PM [facility] REPOSITORY [facility] [address] [place] [address]. [address] [place] [address] OFFICE VISIT Date of Service: 04/13/18 MR#: [id number] Acct: [id number] Name: PAXTON CRUZ Jr. 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 Is patient in pain?: No Allergies codeine Allergy (Verified 04/13/18 12:59) Itching Medications Linagliptin [Tradjenta] 5 mg PO QHS 06/01/17 [History Confirmed 04/13/18] sacubitril 24 mg-valsartan 26 mg tablet 1 tab PO BID 03/17/18 [History Confirmed 04/13/18] carvedilol 3.125 mg tablet 12.5 mg PO BID #180 tab 03/29/18 [Rx Confirmed 04/13/18] clopidogrel 75 mg tablet 75 mg PO QHS #90 tab 03/29/18 [Rx Confirmed 04/13/18] furosemide 80 mg tablet 80 mg PO BID tab 03/29/18 [History Confirmed 04/13/18] lorazepam 0.5 mg tablet 0.5 mg PO QHS PRN 03/29/18 [History Confirmed 04/13/18] pravastatin 80 mg tablet 80 mg PO QHS #90 tab 03/29/18 [Rx Confirmed 04/13/18] [facility] Medical History Old myocardial infarction (Chronic) longterm use of drug (Chronic) Family history of hypertension (Chronic) Other secondary pulmonary hypertension (Chronic) Subendocardial ischemia (Chronic) Ischemic cardiomyopathy (Acute) Nonrheumatic mitral valve regurgitation (Acute) Rheumatic tricuspid insufficiency (Acute) Paroxysmal atrial fibrillation (Chronic) Atherosclerotic heart disease of [place] coronary artery without angina pectoris (Chronic) Type II diabetes mellitus (Chronic) Hyperlipidemia associated with type 2 diabetes mellitus (Chronic) Hypertension (Chronic) Uncontrollable nausea and vomiting (Acute) Left flank pain (Acute) Non-STEMI (non-ST elevated myocardial infarction) (Acute) Unstable angina (Acute) HLD (hyperlipidemia) (Chronic) Diabetes mellitus (Chronic) Acute on chronic renal insufficiency (Acute) Hyperkalemia (Acute) Coronary artery disease (Inactive) Pneumonia (Inactive) Surgical History S/P PTCA (percutaneous transluminal coronary angioplasty) (Chronic) Presence of surgically created arteriovenous shunt for hemodialysis (Acute 05/2017) fistulogram (Acute) Family History Mother Breast cancer Myocardial infarction CAD (coronary artery disease) Father Colon cancer Hypertension Myocardial infarction Other Family history of hypertension Social History Smoking Status: Never smoker second hand exposure: No alcohol intake: never substance use type: does not use caffeine: No what type of physical activity do you participate in: none frequency: does not exercise seatbelt use: always do you feel safe at home: Yes HPI HPI HPI: PAXTON CRUZ, is a 72 M who presents to the office today for increased bleeding and decreased flows. Patient states fro approximately 1 1/2 weeks he has been dialyzing on yellow. Patient notes he has had increased post-treatment bleeding. Patient's most recent fistulogram was on 11/12/17. Findings included multiple areas of venous stenosis within the left proximal forearm and upper arm AV fistula. Dr. Gunn used a 7 x 20 mm cutting balloon angioplasty in 7-8 areas. Patient notes he was last hospitalized in November of 2017 for pneumonia. Patient notes he was inpatient for 3 weeks. He notes his appetite has been slow to return since that time. Patient notes he is on Plavix. He is on dialysis T, TH, SAT. ROS General General: Yes fatigue; no weight change, appetite, colon cancer, breast cancer or weakness HEENT HEENT: No difficulty swallowing, eye injury, eye surgery, swollen glands or hoarseness Endo Endocrine: Yes diabetes mellitus; no thyroid disease, thyroid cancer, Hair loss, heat intolerance or cold intolerance Musc Musculoskeletal: Yes arthritis; no back problems, rheumatoid arthritis, gout or joint pain Cardio Cardiovascular: Yes heart disease, atrial fibrillation and high blood pressure; no murmur, pacemaker, heart attack, heart stent, palpitations, shortness of breat with exertion or chest pain Additional Details: pulm HTN Psych Psychiatric: No depression, anxiety or hearing voices Resp Respiratory: No shortness of breath, No sleep apnea, No cough, No COPD, No asthma, No emphysema, No wheezing Gastro Gastrointestinal: No abdominal pain, No nausea or vomiting, No diarrhea, No constipation, No blood in stool, No acid reflux, No hemorrhoids, No ulcers, No gallbladder problem, No black,tarry stools Mario Hematologic: No blood thinners, No blood disorders, No bleeding, No anemia, No blood clots Neuro Neurologic: No weakness Exam Const General: cooperative, comfortable, no acute distress HENMT Head: normal to inspection Eyes General: appearance normal, both eyes and all related structures Neck Neck: normal visual inspection Neck mass: No Resp Effort AND Inspection: normal respiratory effort Auscultation: clear to auscultation bilaterally Cardio Rate: regular rate Rhythm: regular rhythm Heart Sounds: no murmurs GI Inspection: normal to inspection Palpation: soft Auscultation: normal bowel sounds Skin Other: Left forearm fistula- good pulse, decreased bruit and thrill Extrem General: normal to inspection Psych Appearance: grossly normal Affect: normal affect Assessment AND Plan Problems 1. Problem with dialysis access, subsequent encounter T82.584G Plan Dr. Gunn will plan to perform a left forearm fistulogram. Procedure details, risks and benefits have explained. Patient is to continue on his Plavix. Patient has had the opportunity to ask and have questions answered. Patient verbally understands ad agrees with the plan. Dialysis center was notified of the scheduled procedure. Coding Level of Care Code Off vis,est,level 4 Diagnoses Problem with dialysis access, subsequent encounter T82.940D Encounter type: subsequent encounter 04/13/18 1429 <Electronically signed by Aydee Calloway PA-C> Date Aydee Calloway PA-C Cosigner Signature: Date (if applicable) CC: CARDIOLOGY VISIT Observed: 03/29/2018 Status: F Source: [place] REPORT 4:20 PM [facility] REPOSITORY [facility] [address] [place] [address]. [address] [place] [address] OFFICE VISIT Date of Service: 03/29/18 MR#: [id number] Acct: [id number] Name: PAXTON CRUZ Jr. Rep #: [id number] : 1945 Provider: Juan Dan MD Age/Sex: 72/M Location: [facility] Status: Signed HPI HPI Details: PAXTON CRUZ, is a 72 M who presents to the office today for outpatient cardiovascular follow-up. He states overall he is doing better on his adjusted medication with respect to his diuretic therapy and his afterload reducing therapy with Entresto. He denies any ongoing classic symptoms of angina pectoris at this time and no obvious acute CHF/pulmonary edema. There has been no near syncope or syncope. He states he does get some peripheral edema at times. It waxes and wanes. His lipids were recently checked in February 2018. Overall his total cholesterol, LDL cholesterol, and HDL cholesterol remain under good control. His triglycerides were within normal limits. He did have an ECG today. He remains in sinus rhythm with a first-degree AV block and a right bundle branch block pattern. He does have T wave abnormality potentially compatible with myocardial ischemia in the anterolateral leads. In comparison to a previous ECG there appeared to be no significant change. Intake Vital Signs03/29/18 Body Mass Index (BMI) 27.0 03/29/18 Height 5 ft 7 in 03/29/18 Weight: 177 lb 03/29/18 Body Mass Index (BMI) 27.7 03/29/18 Blood Pressure 138/68 H Intake Visit Reasons: 10 M FU Allergies codeine Allergy (Verified 03/29/18 14:23) Itching Medications Linagliptin [Tradjenta] 5 mg PO QHS 06/01/17 [History Confirmed 03/29/18] sacubitril 24 mg-valsartan 26 mg tablet 1 tab PO BID 03/17/18 [History Confirmed 03/29/18] carvedilol 3.125 mg tablet 12.5 mg PO BID #180 tab 03/29/18 [Rx Confirmed 03/29/18] clopidogrel 75 mg tablet 75 mg PO QHS #90 tab 03/29/18 [Rx Confirmed 03/29/18] furosemide 80 mg tablet 80 mg PO BID tab 03/29/18 [History Confirmed 03/29/18] lorazepam 0.5 mg tablet 0.5 mg PO QHS PRN 03/29/18 [History Confirmed 03/29/18] pravastatin 80 mg tablet 80 mg PO QHS #90 tab 03/29/18 [Rx Confirmed 03/29/18] PFS Medical History Old myocardial infarction (Chronic) 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) Family history of hypertension (Chronic) Other secondary pulmonary hypertension (Chronic) Subendocardial ischemia (Chronic) Ischemic cardiomyopathy (Acute) Nonrheumatic mitral valve regurgitation (Acute) Rheumatic tricuspid insufficiency (Acute) Paroxysmal atrial fibrillation (Chronic) Atherosclerotic heart disease of [place] coronary artery without angina pectoris (Chronic) Type II diabetes mellitus (Chronic) Hyperlipidemia associated with type 2 diabetes mellitus (Chronic) Hypertension (Chronic) Uncontrollable nausea and vomiting (Acute) Left flank pain (Acute) Non-STEMI (non-ST elevated myocardial infarction) (Acute) Unstable angina (Acute) HLD (hyperlipidemia) (Chronic) Diabetes mellitus (Chronic) Acute on chronic renal insufficiency (Acute) Hyperkalemia (Acute) Coronary artery disease (Inactive) Pneumonia (Inactive) Surgical History S/P PTCA (percutaneous transluminal coronary angioplasty) (Chronic) Presence of surgically created arteriovenous shunt for hemodialysis (Acute 05/2017) fistulogram (Acute) Family History Mother Breast cancer Myocardial infarction CAD (coronary artery disease) Father Colon cancer Hypertension Myocardial infarction Other Family history of hypertension Social History Smoking Status: Never smoker second hand exposure: No alcohol intake: never substance use type: does not use caffeine: No what type of physical activity do you participate in: none frequency: does not exercise seatbelt use: always do you feel safe at home: Yes ROS Const Const: Negative for fatigue, weakness, weight gain, weight loss, frequent falls or excessive sweating Eyes Eyes: Negative for change in vision, blurry vision or transient loss of vision ENT ENT: Positive for balance problems (I lose my balance quite a bit); negative for dizziness Cardio Chest Pain: Yes Character: other (slight discomfort) Onset: at rest Location: left chest Duration: minutes (10-15) Relieving: other (took isosorbide mononitrate pill) Palpitations: No Edema: Bilateral (pitting edema to dilat LE) Muscle aches with walking: None Resp Respiratory: Positive for Cough (better since entresto); negative for SOB with activity or SOB at rest GI GI: Negative vomiting or vomiting blood/hematemesis : Negative for hematuria Musc Musc: Positive for balance problems (I lose my balance quite a bit); negative for muscle aches/ myalgia, muscle weakness or joint pain Skin Skin: Negative non-healing lesions or rash Neuro Neuro: Negative for weakness, blurry vision, dizziness, lightheadedness, frequent falls or orthostatic symptoms Mario Hematologic/Lymphatic: Negative for easy bleeding Endo Endo: Negative for fatigue or excessive sweating Psych Psych: Negative for anxiety or depression Allergy Allergy/Immunology: Negative for hives, Negative for rash Cardiology Exam Const Appearance: cooperative, healthy appearing, comfortable, no acute distress, well developed and well groomed Nutritional Appearance: overweight Orientation: alert, awake and oriented x3 Head Head: normal to inspection, normocephalic and atraumatic Ears: hearing grossly normal bilaterally Nose: external nose normal Mouth: oral mucosae normal Teeth and gingiva: poor dentition Eyes Eyelids: eyelids normal Conjunctivae: conjunctivae normal Pupils: PERRL EOM: EOM intact bilaterally Neck Neck: no JVD, normal visual inspection and full ROM Carotids: normal carotid upstroke Chest Chest inspection: normal inspection of the chest, normal respiratory effort and symmetric chest movement Auscultation: Bilateral: Clear to Auscultation Cardio Rate: regular rate Rhythm: regular rhythm Heart sounds: S1 normal, S2 normal and positive S4; negative rub or gallop GI GI: normal to inspection, soft and bowel sounds present Neuro General: alert, awake, oriented x3 and moves all extremities Skin Skin: no rashes or lesions noted Extremities Pulses: Normal: Right Radial Pulse, Diminished: Right Posterior Tibial Pulse, Left Posterior Tibial Pulse Upper Extremity: AV fistula left forearm Lower Extremity Edema: None: Bilateral Psych Psychological: normal affect Assessment AND Plan 1. Atherosclerosis of [place] coronary artery of [place] heart without angina pectoris I25.10 PTCA/HASMUKH to proximal RCA, mid LPL branch of the LCx, in mid LCx in April 2017; angioplasty and PCI to mid and distal RCA in 2014; thrombectomy and PCI to proximal, mid, and distal RCA in 2011; Plan At the present time he appears to be doing well with no acute symptoms or adverse events. He will continue his current medical management Orders Orders: 2. S/P PTCA (percutaneous transluminal coronary angioplasty) Z98.61 thrombectomy with PTCA with HASMUKH to proximal, mid and distal RCA 03/03, PTCA with stenting to mid AND distal RCA 07/05, PTCA of proximal LAD 07/05 Plan He has history of previous PCI as previously described. He will continue medical management Orders Orders: 3. Hyperlipidemia associated with type 2 diabetes mellitus E11.69; E78.5 Plan He has a history of hyperlipidemia. He will continue medical therapy and follow-up as deemed appropriate. 4. Essential hypertension I10 Plan His blood pressure appears to be reasonably well controlled at this time. Thus he will continue his current medical management. 5. ESRD (end stage renal disease) on dialysis N18.6; Z99.2 Plan He will continue to follow with nephrology for his dialysis therapy which he receives on Thursday, , and sat today. Plan Detail Other Medications New: Refilled: Additional Comments Overall he is done better on his medications. He will continue with his current medications and with dialysis. He will be scheduled for future outpatient cardiovascular follow-up. Thank you for allowing me to participate in the care of your patient. Please don't hesitate to call if any issues arise. This note was generated using a voice recognition system and there may be incorrect words, spelling or punctuation that were not noted when reviewing the office note prior to saving. Follow Up 6 Months (with PFM) Coding Level of Care Code Off vis,est,level 4 Diagnoses Atherosclerosis of [place] coronary artery of [place] heart without angina pectoris I25.10 [place] vs. transplanted heart: [place] heart S/P PTCA (percutaneous transluminal coronary angioplasty) Z98.61 Hyperlipidemia associated with type 2 diabetes mellitus E11.69; E78.5 Essential hypertension I10 Hypertension type: essential hypertension ESRD (end stage renal disease) on dialysis N18.6; Z99.2 Coding Level of Care Code Off vis,est,level 4 Diagnoses Atherosclerosis of [place] coronary artery of [place] heart without angina pectoris I25.10 [place] vs. transplanted heart: [place] heart S/P PTCA (percutaneous transluminal coronary angioplasty) Z98.61 Hyperlipidemia associated with type 2 diabetes mellitus E11.69; E78.5 Essential hypertension I10 Hypertension type: essential hypertension ESRD (end stage renal disease) on dialysis N18.6; Z99.2 Supplemental Info Supplemental Information Labs Thyroid Stim Immunoglob 103 % (0-139) 04/14/17 LDL Cholesterol 87 mg/dL (0-130) 03/09/18 HDL Cholesterol 49 mg/dL (40-) 03/09/18 Triglycerides 95 mg/dL (-199) 03/09/18 VLDL Cholesterol 19 mg/dL (5-40) 03/09/18 Diagnostics Electrocardiogram 03/29/18 Echocardiogram 04/23/17 Stress Test Nuclear Medicine 05/15/17 Stress Test 05/15/17 Cardiac Catheterization 05/01/17 Chest X-Ray 04/27/17 03/29/18 1620 <Electronically signed by Juan Dan MD> Date Juan Dan MD Cosigner Signature: Date (if applicable) CC: Sean Medina MD 12 LEAD EKG PERFORMED Observed: 03/29/2018 Status: F Source: [place] BY [facility] 2:37 PM [facility] REPOSITORY [facility] [address] [place] [address] [id number] 12 Lead EKG performed by [facility] 03/29/18 1436 MR#: [id number] Acct: [id number] Name: NANCYPAXTON Roverto Richard Rep #: [id number] : 1945 72 From: Juan Dan MD Attending Dr: Juan Dan MD Status: DEP [facility] Ordering Dr: Juan Dan MD Date: 03/29/18 Location: [facility] Sex: M C Admitted: [facility]/12 Lead EKG performed by [facility] ECG Report Interpretation Sinus Rhythm -First degree A-V block Right bundle branch block. Negative T-waves -Possible Anterolateral ischemia. ABNORMAL Electronically signed on 03/29/2018 at 17:50 by Juan Dan Software Version [id number] 03/29/18 1755 Date Juan Dan MD CC: Sean Medina MD Date Dictated: 03/29/181435 Date Transcribed: 03/29/181435 Artist Representative: PM Signed CBC W/DIFF, AUTOMATED Collected: 03/09/2018 Status: F Source: [place] 12:19 PM [facility] REPOSITORY TYPE CODE TESTS RESULT OUT OF RANGE REFERENCE UNITS LAB L100.1000 4.4-11.0 K/mm3 Normal WBC 6.4 LAB L100.1200 4.6-6.2 M/mm3 Low RBC 3.40 LAB L100.1300 13.0-16.5 g/dl Low HGB 11.5 LAB L100.1400 40-54 % Low HCT 35.6 LAB L100.1500 80-94 fL High MCV 104.7 LAB L100.1600 27.0-32.0 pg High MCH 33.8 LAB L100.1700 32-36 g/gl Normal MCHC 32.3 LAB L100.1810 11.6-14.6 % High RDW CV 15.9 LAB L100.1820 35.1-43.9 fl High RDW SD 60.5 LAB L100.1900 150-450 K/mm3 Normal PLT 186 LAB L100.2000 6.2-12.0 fl Normal MPV 10.7 LAB L100.2100 47-70 % High NEUT% 73.9 LAB L100.2200 19-41 % Low LY% 14.1 LAB L100.2300 0-10 % Normal MONO% 9.7 LAB L100.2400 0-5 % Normal EO% 1.9 LAB L100.2500 0-1 % Normal BASO% 0.2 LAB L100.2550 0.0-0.9 % Normal IM GRAN % 0.200 Result Comment: IG% - Immature Granulocytes (promyelocytes, myelocytes and metamyelocytes) > 1% indicates that a LEFT SHIFT is Present. LAB L100.2620 2.0-7.7 X10 3/uL Normal Absolute Neut 4.7 LAB L100.2720 0.83-4.51 X10 3/ul Normal Absolute Lymph 0.90 Performed By: #### L100.0100, L500.4050, L500.4100, L501.9520, L506.0400 #### [facility] [place], [address] COMPREHENSIVE METABOLIC Collected: 03/09/2018 Status: F Source: [place] 12:19 PM [facility] REPOSITORY TYPE CODE TESTS RESULT OUT OF RANGE REFERENCE UNITS LAB L501.0100 74-106 mg/dL Normal GLU 82 Result Comment: Please note revised GLUCOSE reference range effective 2017. LAB L501.1000 7-18 mg/dL High BUN 20 LAB L501.1100 0.70-1.30 mg/dL High CREAT,SERUM 3.55 Result Comment: The validity of the calculated GFR AND GFRAA in patients over 70 years has not been determined. Clinical correlation is essential. LAB L501.1110 >60 mL/min Low EST GFR 18 Result Comment: Non- GFR Calc LAB L501.1115 >60 mL/min Low EST GFR - AA 22 Result Comment: GFR Calc LAB L501.1300 10-20 RATIO Low BUN/CRE 5.6 LAB L501.1500 6.4-8.2 g/dL Normal T PROT 7.0 LAB L501.1800 3.2-5.0 g/dL Normal ALB 3.3 LAB L501.1950 2.2-4.2 g/dL Normal GLOB 3.7 LAB L501.2000 0.9-2.4 RATIO Normal A/G 0.9 LAB L501.2200 8.5-10.1 mg/dL Low CA 7.8 LAB L501.4100 15-37 U/L Normal AST 22 LAB L501.4305 45-117 U/L High ALK P 170 LAB L501.4405 16-61 U/L Normal ALT 18 LAB L501.4600 0.20-1.00 mg/dL High T BILI 1.40 LAB L501.5300 136-145 mmol/L Normal NA 140 LAB L501.5600 3.5-5.1 mmol/L Normal K 3.5 LAB L501.5900 98-107 mmol/L Low CL 96 LAB L501.6100 21.0-32.0 mmol/L High CO2 33.0 LAB L501.6200 5-15 Normal GAP 11 Performed By: #### L100.0100, L500.4050, L500.4100, L501.9520, L506.0400 #### [facility] [address] [place], [place], [address] LIPID PROFILE Collected: 03/09/2018 Status: F Source: [place] 12:19 PM [facility] REPOSITORY TYPE CODE TESTS RESULT OUT OF RANGE REFERENCE UNITS LAB L501.4900 200 mg/dL Normal CHOL 155 Result Comment: <200 mg/dL Desirable 200-240 mg/dL Borderline >240 mg/dL High Risk LAB L501.5000 mg/dL Normal TRIG 95 Result Comment: The drugs N-Acetylcysteine and Metamizole may falsely depress this assay. Serum Triglycerides Reference Interval Normal <150 mg/dL Borderline high 150 - 199 mg/dL High 200 - 499 mg/dL Very High > or = 500 mg/dL LAB L501.6400 mg/dL Normal HDL 49 Result Comment: The drugs N-Acetylcysteine and Metamizole may falsely depress this assay. Reference Range HDL <40 mg/dL Low HDL Cholesterol HDL >or= 60 mg/dL High HDL Cholesterol LAB L501.6500 0-130 mg/dL Normal LDL 87 LAB L501.6600 5-40 mg/dL Normal VLDL 19 Performed By: #### L100.0100, L500.4050, L500.4100, L501.9520, L506.0400 #### [facility] [address] [place], [place], [id number] THYROID STIM HORMONE Collected: 03/09/2018 Status: F Source: [place] (TSH) 12:19 PM [facility] REPOSITORY TYPE CODE TESTS RESULT OUT OF RANGE REFERENCE UNITS LAB L501.9520 0.358-3.74 uIU/mL Normal TSH 1.70 Performed By: #### L100.0100, L500.4050, L500.4100, L501.9520, L506.0400 #### [facility] [address] [place], [place], [address] T4 FREE DIRECT Collected: 03/09/2018 Status: F Source: [place] 12:19 PM [facility] REPOSITORY TYPE CODE TESTS RESULT OUT OF RANGE REFERENCE UNITS LAB L506.0400 0.76-1.46 ng/dL Normal T4 FREE 1.19 DIRECT Performed By: #### L100.0100, L500.4050, L500.4100, L501.9520, L506.0400 #### [facility] [address] [place], [address] BNP,B-TYPE NATRIURETIC Collected: 03/09/2018 Status: F Source: [place] PEPTIDE 12:19 PM [facility] REPOSITORY TYPE CODE TESTS RESULT OUT OF RANGE REFERENCE UNITS LAB L503.6620 0-100 pg/mL High B-TYPE > 5000.0 IVANNA PEP Performed By: #### L503.6620 #### [facility] [address] [place], [address] OPERATIVE REPORT Observed: 11/12/2017 Status: F Source: [place] 12:50 PM [facility] REPOSITORY [facility] Medical Records Department [address] [place] [address] Operative Report 11/12/17 1244 MR#: [id number] Acct: [id number] Name: PAXTON CRUZ Jr. Rep #: [id number] : 1945 72 From: Kristian Gunn MD PCP: Sean Medina MD Status: REG [facility] Location: [facility] Problem List (1) Problem with dialysis access Status: Acute Qualifiers: Encounter type: subsequent encounter Qualified Code(s): T82.898D - Other specified complication of vascular prosthetic devices, implants and grafts, subsequent encounter Report of Operation Date of Procedure: 11/12/17 Pre-Operative Diagnosis: Increased bleeding left radiocephalic arteriovenous fistula Post-Operative Diagnosis: Multiple areas of venous stenosis within the left proximal forearm and upper arm AV fistula Surgery/Procedure Performed:: Left upper extremity fistulogram with multiple 7-8 areas of 7 x 20 mm cutting balloon angioplasty Description of Surgical Findings:: Timeout informed consent was obtained. Patient was taken to the special procedure room placed on the table. He requested absolutely no IV sedative. The left upper extremity sterilely prepped draped. Close to the wrist antegrade with flow 2% lidocaine was instilled. Micropuncture needle inserted micropuncture wire inserted 6 [place] short sheath was inserted. Fistulogram was obtained of the upper arm. This demonstrated areas of stenosis at the antecubital space. Within the mid upper arm. Within the proximal upper arm 3 areas. Cephalic arch 3 areas Subsequently subsequently up sheath over an 035 angled Glidewire to a 7 [place] sheath. A 7 x 2 cutting balloon was inserted and multiple insufflations at each of the areas of tight stenosis were performed. All of these areas appear to be clinically significant. 3-4 insufflations required for each area. Over an hour of total angioplasty was required for resolution. At the completion final fistulogram demonstrated improvement at all areas. The sheath was removed and a U suture of 4-0 nylon was placed. There was a pulse and thrill within the fistula at the completion. Images show a left forearm radiocephalic arteriovenous fistula. There is areas of stenosis in the proximal forearm upper arm and cephalic arch multiple locations. There is occlusion of the left upper arm basilic vein after very short takeoff. All of the flow is via the cephalic vein. There is good central venous outflow. At the conclusion of the angioplasty there is improved flow at all locations. Specimens none. Blood loss minimal. Drains none. Kristian Gunn M.D., F.A.C.S. Type of Anesthesia:: Local 11/12/17 1250 <Electronically signed by Kristian Gunn MD> Date Kristian Gunn MD CC: Sean Medina MD; Kristian Gunn MD Signed CBC-COMPLETE BLOOD CNT Collected: 11/12/2017 Status: F Source: [place] NO DIFF 8:52 AM [facility] REPOSITORY TYPE CODE TESTS RESULT OUT OF RANGE REFERENCE UNITS LAB L100.1000 4.4-11.0 K/mm3 Normal WBC 8.1 LAB L100.1200 4.6-6.2 M/mm3 Low RBC 3.68 LAB L100.1300 13.0-16.5 g/dl Low HGB 11.6 LAB L100.1400 40-54 % Low HCT 36.9 LAB L100.1500 80-94 fL High MCV 100.3 LAB L100.1600 27.0-32.0 pg Normal MCH 31.5 LAB L100.1700 32-36 g/gl Low MCHC 31.4 LAB L100.1810 11.6-14.6 % High RDW CV 16.7 LAB L100.1820 35.1-43.9 fl High RDW SD 61.5 LAB L100.1900 150-450 K/mm3 Normal PLT 187 LAB L100.2000 6.2-12.0 fl Normal MPV 10.8 Performed By: #### L100.0500 #### [facility] [address] [place], [address] BASIC METABOLIC Collected: 11/12/2017 Status: F Source: [place] PROFILE ([facility]) 8:52 AM [facility] REPOSITORY TYPE CODE TESTS RESULT OUT OF RANGE REFERENCE UNITS LAB L501.0100 74-106 mg/dL High GLU 139 Result Comment: Fasting Glucose result greater than or equal to 126 mg/dL suggests DIABETES MELLITUS per A.D.A. criteria. Please note revised GLUCOSE reference range effective 2017. LAB L501.1000 7-18 mg/dL High BUN 31 LAB L501.1100 0.70-1.30 mg/dL High CREAT,SERUM 5.19 Result Comment: The validity of the calculated GFR AND GFRAA in patients over 70 years has not been determined. Clinical correlation is essential. LAB L501.1110 >60 mL/min Low EST GFR 12 Result Comment: Non- GFR Calc LAB L501.1115 >60 mL/min Low EST GFR - AA 14 Result Comment: GFR Calc LAB L501.1255 ml/min Normal Estimated CRCL 11.67 LAB L501.1300 10-20 RATIO Low BUN/CRE 6.0 LAB L501.2200 8.5-10 mg/dL Normal .1 CA 8.8 LAB L501.5300 136-14 mmol/L Low 5 NA 135 LAB L501.5600 3.5-5. mmol/L High 1 K 5.6 LAB L501.5900 98-107 mmol/L Normal CL 102 LAB L501.6100 21.0-3 mmol/L Normal 2.0 CO2 25.0 LAB L501.6200 5-15 Normal GAP 8 Performed By: #### L500.2500 #### [facility] [address] [place], [address] SURGERY VISIT REPORT Observed: 11/03/2017 Status: F Source: [place] 3:10 PM [facility] REPOSITORY [facility] 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 Is patient in pain?: No Allergies codeine Allergy (Verified 11/03/17 13:37) Itching Medications clopidogrel 75 mg tablet 75 mg PO QHS 04/27/17 [History Confirmed 11/03/17] pravastatin 80 mg tablet 80 mg PO QHS #30 tab 04/27/17 [Rx Confirmed 11/03/17] aspirin 81 mg chewable tablet 81 mg PO QDAY tab 04/28/17 [History Confirmed 11/03/17] Amlodipine [Norvasc] 10 mg PO QHS 06/01/17 [History Confirmed 11/03/17] Carvedilol [Coreg] 12.5 mg PO BID 06/01/17 [History Confirmed 11/03/17] Linagliptin [Tradjenta] 5 mg PO QHS 06/01/17 [History Confirmed 11/03/17] [facility] Medical History Old myocardial infarction (Chronic) longterm use of drug (Chronic) Family history of hypertension (Chronic) Other secondary pulmonary hypertension (Chronic) Subendocardial ischemia (Chronic) Ischemic cardiomyopathy (Acute) Nonrheumatic mitral valve regurgitation (Acute) Rheumatic tricuspid insufficiency (Acute) Paroxysmal atrial fibrillation (Chronic) Atherosclerotic heart disease of [place] coronary artery without angina pectoris (Chronic) Type II diabetes mellitus (Chronic) Hyperlipidemia associated with type 2 diabetes mellitus (Chronic) Hypertension (Chronic) Uncontrollable nausea and vomiting (Acute) Left flank pain (Acute) Non-STEMI (non-ST elevated myocardial infarction) (Acute) Unstable angina (Acute) HLD (hyperlipidemia) (Chronic) Diabetes mellitus (Chronic) Acute on chronic renal insufficiency (Acute) Hyperkalemia (Acute) Coronary artery disease (Inactive) Pneumonia (Inactive) Surgical History S/P PTCA (percutaneous transluminal coronary angioplasty) (Chronic) Presence of surgically created arteriovenous shunt for hemodialysis (Acute 05/2017) fistulogram (Acute) Family History Mother Breast cancer Myocardial infarction CAD (coronary artery disease) Father Colon cancer Hypertension Myocardial infarction Other Family history of hypertension Social History Smoking Status: Never smoker second hand exposure: No alcohol intake: never substance use type: does not use caffeine: No what type of physical activity do you participate in: none frequency: does not exercise seatbelt use: always do you feel safe at home: Yes HPI HPI HPI: PAXTON CRUZ, is a 72 M who presents to the office today for removal of his tunneled right internal jugular dialysis catheters. I did proceed and perform that for him today however I have concerns regarding his left forearm transposed cephalic vein to radial artery AV fistula. He has known upper arm basilic vein outflow occlusion and appears to have recurrent stenosis within his left upper arm cephalic vein. The patient states that his previous fistulogram that I perform for him on September 09 6017 was quite uncomfortable Exam Const General: cooperative Nutritional Appearance: average body habitus Orientation: alert, awake [facility] Head: normal to inspection Eyes General: appearance normal, both eyes and all related structures Neck Neck: normal visual inspection Resp Effort AND Inspection: normal respiratory effort Auscultation: clear to auscultation bilaterally Cardio Rate: regular rate Rhythm: regular rhythm GI Palpation: soft, no hepatosplenomegaly Skin General: no rashes or lesions noted Neuro Cranial Nerves: CN's II-XI intact bilaterally Extrem Other: Left forearm and upper arm: There is a healed left forearm radial to cephalic AV fistula. The vein of the forearm antecubital area and cephalic vein in the upper arm appears to be overly matured. In the more mid to proximal left upper arm visibly and palpably the vein appears relatively diminished. There is a post thrill and bruit within the fistula but the bruit has more of a staccato obstructive sound Office Procedures Port/Cath Removal Provider Documentation Details:: Removal right internal jugular tunneled dialysis catheter Timeout and informed consent was obtained. 72-year-old gentleman was taken to procedure room. He was placed upon the table. Head of bed was slightly elevated. The right neck chest were sterilely prepped draped with Betadine. 1% lidocaine mixed 50-50 with 0.5% Marcaine was used as local anesthetic. 2 cc was used. A counterincision was made directly over the cuff. Sharp and blunt dissection was used to release the cuff. The tubing was removed from the internal jugular with direct pressure held upon the catheter site. The cath was nicely removed. The Dacron cuff was sharply removed. The cath was completely removed. The skin was closed with counterincision of interrupted 3-0 chromic subdermal sutures. Steri-Strips Telfa OpSite pressure dressing is applied. He tolerated that well no apparent complication blood loss was minimal. Kristian Gunn M.D., F.A.C.S. Alert Mac Alert Billing: Yes Port/Peg [id number] Dialysis Cath Remov Procedure Time Out Time Out Informed consent given: Yes Consent signed: Yes Time out checklist: patient, procedure, site marked/identified, positioning of patient, supplies available, allergies confirmed, team agrees on procedure Time out staff in room: Yes Time out verified: Yes Time out date: 11/03/17 Time out time: 14:00 Assessment AND Plan Problems 1. Problem with dialysis access, initial encounter T82.357N Plan Successful removal right internal jugular tunneled dialysis catheter The patient is a left extremity fistulogram. He has an occluded left upper arm basilic vein for outflow. He had good arterial inflow. I recommend a antegrade approach in the left forearm transposed cephalic vein. I anticipate difficulties in the left mid upper arm and proximal upper arm with recurrent stenosis. The patient required a higher pressure balloon previously and the balloon burst causing him discomfort. I am anticipating on this occasion likely requiring a cutting balloon. He has had an opportunity to ask questions answered. We will schedule and proceed at his discretion. Kristian Gunn M.D., F.A.C.S. Orders Orders: Coding Level of Care Code No Charge Diagnoses Problem with dialysis access, initial encounter T82.763Q Encounter type: initial encounter Additional Codes Port/Peg - Port/Pe Dialysis Cath Remov (13864) 11/03/17 1510 <Electronically signed by Kristian Gunn MD> Date Kristian Gunn MD Cosigner Signature: Date (if applicable) CC: Davidson Ojeda SURGERY VISIT REPORT Observed: 09/22/2017 Status: F Source: [place] 3:53 PM [facility] REPOSITORY [facility] [address] [place] [address] OFFICE VISIT Date of Service: 09/22/17 MR#: [id number] Acct: [id number] Name: PAXTON CRUZ Jr. 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 Engineering Technician Required: No Is patient in pain?: No Allergies codeine Allergy (Verified 09/22/17 12:40) Itching Medications clopidogrel 75 mg tablet 75 mg PO QHS 04/27/17 [History Confirmed 09/22/17] pravastatin 80 mg tablet 80 mg PO QHS #30 tab 04/27/17 [Rx Confirmed 09/22/17] aspirin 81 mg chewable tablet 81 mg PO QDAY tab 04/28/17 [History Confirmed 09/22/17] Amlodipine [Norvasc] 10 mg PO QHS 06/01/17 [History Confirmed 09/22/17] Carvedilol [Coreg] 12.5 mg PO BID 06/01/17 [History Confirmed 09/22/17] Linagliptin [Tradjenta] 5 mg PO QHS 06/01/17 [History Confirmed 09/22/17] PFSH Medical History Old myocardial infarction (Chronic) longterm use of drug (Chronic) Family history of hypertension (Chronic) Other secondary pulmonary hypertension (Chronic) Subendocardial ischemia (Chronic) Ischemic cardiomyopathy (Acute) Nonrheumatic mitral valve regurgitation (Acute) Rheumatic tricuspid insufficiency (Acute) Paroxysmal atrial fibrillation (Chronic) Atherosclerotic heart disease of [place] coronary artery without angina pectoris (Chronic) Type II diabetes mellitus (Chronic) Hyperlipidemia associated with type 2 diabetes mellitus (Chronic) Hypertension (Chronic) Uncontrollable nausea and vomiting (Acute) Left flank pain (Acute) Non-STEMI (non-ST elevated myocardial infarction) (Acute) Unstable angina (Acute) HLD (hyperlipidemia) (Chronic) Diabetes mellitus (Chronic) Acute on chronic renal insufficiency (Acute) Hyperkalemia (Acute) Coronary artery disease (Inactive) Pneumonia (Inactive) Surgical History S/P PTCA (percutaneous transluminal coronary angioplasty) (Chronic) Presence of surgically created arteriovenous shunt for hemodialysis (Acute 05/2017) fistulogram (Acute) Family History Mother Breast cancer Myocardial infarction CAD (coronary artery disease) Father Colon cancer Hypertension Myocardial infarction Other Family history of hypertension Social History Smoking Status: Never smoker second hand exposure: No alcohol intake: never substance use type: does not use caffeine: No what type of physical activity do you participate in: none frequency: does not exercise seatbelt use: always do you feel safe at home: Yes HPI HPI HPI: PAXTON CRUZ, is a 71 M I am following for chronic renal failure. Dr. Gunn performed a left forearm cephalic vein to radial artery fistulogram on 09/15/17. Patient tolerated the procedure well. Findings included high-grade stenosis x 2 and occlusion antecubital left upper extremity basilic vein. A 6 x 80 mm ever angioplasty was performed. Patient denies pain currently. He continues to have a chest catheter. Exam Skin Other: Left forearm AV fistula- good pulse, bruit and thrill. Two sutures were removed. Assessment AND Plan Problems 1. ESRD (end stage renal disease) on dialysis N18.6; Z99.2 Plan - May utilize fistula - Follow-up once chest catheters need to be removed. Coding Level of Care Code Global Post Op Diagnoses ESRD (end stage renal disease) on dialysis N18.6; Z99.2 09/22/17 1553 <Electronically signed by Aydee Calloway PA-C> Date Aydee Calloway PA-C Cosigner Signature: Date (if applicable) CC: Sean Medina MD OPERATIVE REPORT Observed: 09/15/2017 Status: F Source: [place] 12:21 PM [facility] REPOSITORY [facility] Medical Records Department [address] [place] [address] Operative Report 09/15/17 1216 MR#: [id number] Acct: [id number] Name: NANCYPAXTON Jr. Rep #: [id number] : 1945 71 From: Kristian Gunn MD PCP: Sean Medina MD Status: REG [facility] Location: [facility] Problem List (1) Problem with dialysis access Status: Acute Qualifiers: Encounter type: initial encounter Qualified Code(s): T82.898A - Other specified complication of vascular prosthetic devices, implants and grafts, initial encounter Report of Operation Date of Procedure: 09/15/17 Pre-Operative Diagnosis: Diminished flow transposed left forearm cephalic vein to radial artery arteriovenous fistula with increased bleeding Post-Operative Diagnosis: Upper arm cephalic vein outflow high-grade stenosis 2. Occlusion antecubital left upper extremity basilic vein Surgery/Procedure Performed:: Double access left upper extremity fistulogram with 6 x 80 mm ever cross angioplasty Description of Surgical Findings:: Timeout and informed consent was obtained. 71-year-old gent was taken the special procedures lab. He was placed on the table. The left upper extremity sterilely prepped draped. Ultrasound was used to identify the cephalic vein close to the antecubital space retrograde with flow. Under ultrasound guidance 2% lidocaine was instilled. Micropuncture needle inserted. Micropuncture wire inserted. A 4 Salvadorean angled glide cath was used to place a 035 stiff Glidewire into the radial artery. [place] cath was advanced. A fistulogram was performed was obtained during moderate stenosis of the vein. So a 6 x 8 mm ever cross balloon was placed balloon angioplasty of the very proximal portion of the fistula was performed up to 14 brittany. An injection view demonstrated improvement. Subsequently further images were taken of the upper arm and chest area. This demonstrated occlusion of the basilic vein at the antecubital space. It demonstrated 2 areas of high-grade venous stenosis of the left upper arm cephalic vein. Central access was now again in the forearm antegrade with flow again ultrasound to cephalic veins local was instilled micropuncture needle inserted 6 Salvadorean short sheath dilator was inserted. Using the angled Glidewire access was gained to the cephalic vein of the upper arm. Balloon angioplasty of both sites of high-grade narrowing were performed with the 6 x 80 mm ever cross. Couple insufflations required for each area. Final hand-injection demonstrated improvement. There was return of her thrill in the fistula. Devices were removed 2 sutures of 4-0 nylon were placed at both sheath site hemostasis was intact there was a strong pulse, thrill, bruit at the completion apparent complication he tolerated it well. Findings demonstrate a transposed cephalic vein radial artery AV fistula performed with a widely patent arterial anastomosis. There is some mild tendinosis of the proximal vein. There is occlusion of the basilic vein at the antecubital space with refill further up the arm. There is 2 areas of high-grade stenosis of the left upper arm cephalic vein. One is over approximately 3 cm and about 70% stenosis yet there is a very focal area of high-grade 90% stenosis. There otherwise appears to be adequate central venous outflow. Subsequent to the angioplasty there appears to be improvement of the cephalic vein in the distal upper arm with improved flow noted. 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 Kristian Gunn M.D., F.A.C.S. Type of Anesthesia:: Local 09/15/17 1221 <Electronically signed by Kristian Gunn MD> Date Kristian Gunn MD CC: Sean Medina MD; Kristian Gunn MD Signed CBC-COMPLETE BLOOD CNT Collected: 09/10/2017 Status: F Source: [place] NO DIFF 11:22 AM [facility] REPOSITORY TYPE CODE TESTS RESULT OUT OF RANGE REFERENCE UNITS LAB L100.1000 4.4-11.0 K/mm3 Normal WBC 5.9 LAB L100.1200 4.6-6.2 M/mm3 Low RBC 3.46 LAB L100.1300 13.0-16.5 g/dl Low HGB 10.8 LAB L100.1400 40-54 % Low HCT 32.8 LAB L100.1500 80-94 fL High MCV 94.8 LAB L100.1600 27.0-32.0 pg Normal MCH 31.2 LAB L100.1700 32-36 g/gl Normal MCHC 32.9 LAB L100.1810 11.6-14.6 % Normal RDW CV 14.3 LAB L100.1820 35.1-43.9 fl High RDW SD 49.4 LAB L100.1900 150-450 K/mm3 Normal PLT 183 LAB L100.2000 6.2-12.0 fl Normal MPV 10.7 Performed By: #### L100.0500 #### [facility] [address] [place], [address] BASIC METABOLIC Collected: 09/10/2017 Status: F Source: [place]Y PROFILE (BMP) 11:22 AM [facility] REPOSITORY TYPE CODE TESTS RESULT OUT OF RANGE REFERENCE UNITS LAB L501.0100 74-106 mg/dL High GLU 127 Result Comment: Fasting Glucose result greater than or equal to 126 mg/dL suggests DIABETES MELLITUS per A.D.A. criteria. Please note revised GLUCOSE reference range effective 2017. LAB L501.1000 7-18 mg/dL Low BUN 5 LAB L501.1100 0.70-1.30 mg/dL High CREAT,SERUM 2.07 Result Comment: The validity of the calculated GFR AND GFRAA in patients over 70 years has not been determined. Clinical correlation is essential. LAB L501.1110 >60 mL/min Low EST GFR 34 Result Comment: Non- GFR Calc LAB L501.1115 >60 mL/min Low EST GFR - AA 41 Result Comment: GFR Calc LAB L501.1300 10-20 RATIO Low BUN/CRE 2.4 LAB L501.2200 8.5-10.1 mg/dL Low CA 8.1 LAB L501.5300 136-145 mmol/L Normal NA 141 LAB L501.5600 3.5-5.1 mmol/L Low K 3.2 LAB L501.5900 98-107 mmol/L Normal CL 100 LAB L501.6100 21.0-32.0 mmol/L Normal CO2 32.0 LAB L501.6200 5-15 Normal GAP 9 Performed By: #### L500.2500 #### [facility] [address] [place], [address] SURGERY VISIT REPORT Observed: 09/03/2017 Status: F Source: [place] 2:33 PM [facility] REPOSITORY [facility] [address] [place] [address] OFFICE VISIT Date of Service: 09/03/17 MR#: [id number] Acct: [id number] Name: NANCYPAXTON Roverto Richard Rep #: [id number] : 1945 Provider: Aydee Calloway PA-C Age/Sex: 71/M Location: [facility] Status: Signed Intake Vital Signs09/03/17 Height 5 ft 7 in 09/03/17 Weight: 160 lb 14.999 oz 09/03/17 Body Mass Index (BMI) 25.2 09/03/17 Blood Pressure 134/69 Intake Visit Reasons: prolonged bleeds Chief Complaint: prolonged bleeds Photonics Engineering Technician Required: No Is patient in pain?: No Allergies codeine Allergy (Verified 09/03/17 12:29) Itching Medications clopidogrel 75 mg tablet 75 mg PO QHS 04/27/17 [History Confirmed 09/03/17] pravastatin 80 mg tablet 80 mg PO QHS #30 tab 04/27/17 [Rx Confirmed 09/03/17] aspirin 81 mg chewable tablet 81 mg PO QDAY tab 04/28/17 [History Confirmed 09/03/17] Amlodipine [Norvasc] 10 mg PO QHS 06/01/17 [History Confirmed 09/03/17] Carvedilol [Coreg] 12.5 mg PO BID 06/01/17 [History Confirmed 09/03/17] Linagliptin [Tradjenta] 5 mg PO QHS 06/01/17 [History Confirmed 09/03/17] [facility] Medical History Old myocardial infarction (Chronic) longterm use of drug (Chronic) Family history of hypertension (Chronic) Other secondary pulmonary hypertension (Chronic) Subendocardial ischemia (Chronic) Ischemic cardiomyopathy (Acute) Nonrheumatic mitral valve regurgitation (Acute) Rheumatic tricuspid insufficiency (Acute) Paroxysmal atrial fibrillation (Chronic) Atherosclerotic heart disease of [place] coronary artery without angina pectoris (Chronic) Type II diabetes mellitus (Chronic) Hyperlipidemia associated with type 2 diabetes mellitus (Chronic) Hypertension (Chronic) Uncontrollable nausea and vomiting (Acute) Left flank pain (Acute) Non-STEMI (non-ST elevated myocardial infarction) (Acute) Unstable angina (Acute) HLD (hyperlipidemia) (Chronic) Diabetes mellitus (Chronic) Acute on chronic renal insufficiency (Acute) Hyperkalemia (Acute) Coronary artery disease (Inactive) Pneumonia (Inactive) Surgical History S/P PTCA (percutaneous transluminal coronary angioplasty) (Chronic) Presence of surgically created arteriovenous shunt for hemodialysis (Acute 05/2017) Family History Mother Breast cancer Myocardial infarction CAD (coronary artery disease) Father Colon cancer Hypertension Myocardial infarction Other Family history of hypertension Social History Smoking Status: Never smoker second hand exposure: No alcohol intake: never substance use type: does not use caffeine: No what type of physical activity do you participate in: none frequency: does not exercise seatbelt use: always do you feel safe at home: Yes HPI HPI HPI: PAXTON CRUZ, is a 71 M who presents with prolonged bleeding. Patient has a transposed left forearm cephalic vein to radial artery. He currently notes prolonged bleeding following dialysis treatment. He notes having to hold pressure for 45 min- 1 hour. He dialyzes on T, Th, and Sat. His fistula was created on 06/08/17. Patient's fistula was released for use on 08/04/17. He has never had a fistulogram previously. Patient is currently maintained on Plavix and aspirin. ROS General General: Yes fatigue; no weight change, appetite, colon cancer, breast cancer or weakness HEENT HEENT: No difficulty swallowing, eye injury, eye surgery, swollen glands or hoarseness Endo Endocrine: Yes diabetes mellitus; no thyroid disease, thyroid cancer, Hair loss, heat intolerance or cold intolerance Musc Musculoskeletal: Yes arthritis; no back problems, rheumatoid arthritis, gout or joint pain Cardio Cardiovascular: Yes heart disease, atrial fibrillation and high blood pressure; no murmur, pacemaker, heart attack, heart stent, palpitations, shortness of breat with exertion or chest pain Additional Details: pulm HTN Psych Psychiatric: No depression, anxiety or hearing voices Resp Respiratory: No shortness of breath, No sleep apnea, No cough, No COPD, No asthma, No emphysema, No wheezing Gastro Gastrointestinal: No abdominal pain, No nausea or vomiting, No diarrhea, No constipation, No blood in stool, No acid reflux, No hemorrhoids, No ulcers, No gallbladder problem, No black,tarry stools Mario Hematologic: No blood thinners, No blood disorders, No bleeding, No anemia, No blood clots Neuro Neurologic: No weakness Exam Const General: cooperative, healthy appearing, comfortable, no acute distress HENMT Head: normal to inspection Eyes General: appearance normal, both eyes and all related structures Neck Neck mass: No Resp Effort AND Inspection: normal respiratory effort Cardio Rate: regular rate Heart Sounds: no murmurs GI Inspection: normal to inspection Palpation: soft Auscultation: normal bowel sounds Skin General: no rashes or lesions noted Neuro General: no focal motor deficits Extrem Other: Left forearm AV fistula- good pulse, diminished bruit and thrill. Psych Appearance: grossly normal Affect: normal affect Assessment AND Plan Problems 1. Malfunction of arteriovenous dialysis fistula, initial encounter T82.590A Plan Dr. Gunn will plan to perform a left forearm fistulogram. Procedure details, risks and benefits have been explained to the patient. Patient has had the opportunity to ask and have questions answered. Patient verbally understands and agrees with the plan. Patient to hold Plavix for 2 days prior to procedure. May continue Aspirin. Coding Level of Care Code Off vis,est,level 3 Diagnoses Malfunction of arteriovenous dialysis fistula, initial encounter T82.590A Encounter type: initial encounter Time Spent (min) 09/03/17 1433 <Electronically signed by Aydee Calloway PA-C> Date Aydee Calloway PA-C Cosigner Signature: Date (if applicable) CC: Charles Scott M.D. SURGERY VISIT REPORT Observed: 08/04/2017 Status: F Source: [place] 2:14 PM [facility] REPOSITORY [facility] [address] [place] [address] [address] [place] [address] OFFICE VISIT Date of Service: 08/04/17 MR#: [id number] Acct: [id number] Name: PAXTON CRUZ Jr. Rep #: [id number] : 1945 Provider: Aydee Calloway PA-C Age/Sex: 71/M Location: [facility] Status: Signed Intake Intake Visit Reasons: F/U Fistula 06/11 Photonics Engineering Technician Required: No Is patient in pain?: No Allergies codeine Allergy (Verified 08/04/17 12:19) Itching Medications clopidogrel 75 mg tablet 75 mg PO QHS 04/27/17 [History Confirmed 08/04/17] pravastatin 80 mg tablet 80 mg PO QHS #30 tab 04/27/17 [Rx Confirmed 08/04/17] aspirin 81 mg chewable tablet 81 mg PO QDAY tab 04/28/17 [History Confirmed 08/04/17] Amlodipine [Norvasc] 10 mg PO QHS 06/01/17 [History Confirmed 08/04/17] Carvedilol [Coreg] 12.5 mg PO BID 06/01/17 [History Confirmed 08/04/17] Linagliptin [Tradjenta] 5 mg PO QHS 06/01/17 [History Confirmed 08/04/17] PFSH Medical History Old myocardial infarction (Chronic) 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) Family history of hypertension (Chronic) Other secondary pulmonary hypertension (Chronic) Subendocardial ischemia (Chronic) Ischemic cardiomyopathy (Acute) Nonrheumatic mitral valve regurgitation (Acute) Rheumatic tricuspid insufficiency (Acute) Paroxysmal atrial fibrillation (Chronic) Atherosclerotic heart disease of [place] coronary artery without angina pectoris (Chronic) Type II diabetes mellitus (Chronic) Hyperlipidemia associated with type 2 diabetes mellitus (Chronic) Hypertension (Chronic) Uncontrollable nausea and vomiting (Acute) Left flank pain (Acute) Non-STEMI (non-ST elevated myocardial infarction) (Acute) Unstable angina (Acute) HLD (hyperlipidemia) (Chronic) Diabetes mellitus (Chronic) Acute on chronic renal insufficiency (Acute) Hyperkalemia (Acute) Coronary artery disease (Inactive) Pneumonia (Inactive) Surgical History S/P PTCA (percutaneous transluminal coronary angioplasty) (Chronic) Presence of surgically created arteriovenous shunt for hemodialysis (Acute 05/2017) Family History Mother Breast cancer Myocardial infarction CAD (coronary artery disease) Father Colon cancer Hypertension Myocardial infarction Other Family history of hypertension Social History Smoking Status: Never smoker second hand exposure: No alcohol intake: never substance use type: does not use caffeine: No what type of physical activity do you participate in: none frequency: does not exercise seatbelt use: always do you feel safe at home: Yes HPI HPI HPI: PAXTON RCUZ, is a 71 M I am following for chronic renal failure. Dr. Gunn performed a transposition left forearm cephalic vein to radial artery arteriovenous fistula creation on 06/08/17. Patient tolerated the procedure well. Patient denies pain/discomfort. He denies numbness of the hand and fingers. He is performing hand exercises. Patient is currently on dialysis via chest catheters. Patient returns for a follow-up visit. Patient denies changes in his fistula. He continues to be dialyzed by chest catheters. Exam Const General: cooperative, healthy appearing, comfortable, no acute distress Extrem Other: Left forearm fistula- incision c/d/i. No erythema or infection noted. Good pulse, bruit and thrill. Assessment AND Plan Problems 1. ESRD (end stage renal disease) on dialysis N18.6; Z99.2 Plan - Fistula may be released for use - Follow-up for removal of the tunneled dialysis chest catheters. Coding Level of Care Code Global Post Op Diagnoses ESRD (end stage renal disease) on dialysis N18.6; Z99.2 08/04/17 1414 <Electronically signed by Aydee Calloway PA-C> Date Aydee Calloway PA-C Cosigner Signature: Date (if applicable) CC: Sean Medina MD CARDIOLOGY VISIT Observed: 07/24/2017 Status: F Source: [place] REPORT 9:30 AM [facility] REPOSITORY [facility] [address] [place] [address] OFFICE VISIT Date of Service: 07/23/17 MR#: [id number] Acct: [id number] Name: PAXTON CRUZ Jr. Rep #: [id number] : 1945 Provider: Mirella Aquino Age/Sex: 71/M Location: [facility] Status: Signed HPI HPI Details: PAXTON CRUZ, is a 71 M who presents to the office today for an urgent cardiovascular outpatient follow-up. Patient is a history of coronary artery disease status post PTCA/HASMUKH to proximal RCA, mid LPL branch of the LCx, and mid LCx in April 2017, angioplasty and PCI to mid and distal RCA in 2014, thrombectomy and PCI to proximal, mid, and distal RCA in 2011, ischemic mediated cardiomyopathy, paroxysmal atrial fibrillation, hypertension, hyperlipidemia, diabetes, and renal insufficiency with dialysis Thursday, , Thursday. Pt sts that Thursday and Thursday he would not lay flat because he was SOB. He was concerned about his stents. He was at dialysis on Thursday, they needed to take off more fluid. He sts that after that he felt better. Today at dialysis he did not require any extra fluid. He does not have any chest pain/heaviness. He does have leg fatigue but this is not new. He does not have any lightheadedness/dizziness. Intake Vital Signs07/23/17 Height 5 ft 7 in 07/23/17 Weight: 164 lb 07/23/17 Body Mass Index (BMI) 25.7 07/23/17 Blood Pressure 128/72 Intake Visit Reasons: per Photonics Engineering Technician Required: No Accompanied by: one Is patient in pain?: No Allergies codeine Allergy (Verified 07/23/17 13:17) Itching Medications clopidogrel 75 mg tablet 75 mg PO QHS 04/27/17 [History Confirmed 07/23/17] pravastatin 80 mg tablet 80 mg PO QHS #30 tab 04/27/17 [Rx Confirmed 07/23/17] aspirin 81 mg chewable tablet 81 mg PO QDAY tab 04/28/17 [History Confirmed 07/23/17] Amlodipine [Norvasc] 10 mg PO QHS 06/01/17 [History Confirmed 07/23/17] Carvedilol [Coreg] 12.5 mg PO BID 06/01/17 [History Confirmed 07/23/17] Linagliptin [Tradjenta] 5 mg PO QHS 06/01/17 [History Confirmed 07/23/17] Ejection fraction %: 20 to 24 PFSH Medical History Old myocardial infarction (Chronic) 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) Family history of hypertension (Chronic) Other secondary pulmonary hypertension (Chronic) Subendocardial ischemia (Chronic) Ischemic cardiomyopathy (Acute) Nonrheumatic mitral valve regurgitation (Acute) Rheumatic tricuspid insufficiency (Acute) Paroxysmal atrial fibrillation (Chronic) Atherosclerotic heart disease of [place] coronary artery without angina pectoris (Chronic) Type II diabetes mellitus (Chronic) Hyperlipidemia associated with type 2 diabetes mellitus (Chronic) Hypertension (Chronic) Uncontrollable nausea and vomiting (Acute) Left flank pain (Acute) Non-STEMI (non-ST elevated myocardial infarction) (Acute) Unstable angina (Acute) HLD (hyperlipidemia) (Chronic) Diabetes mellitus (Chronic) Acute on chronic renal insufficiency (Acute) Hyperkalemia (Acute) Coronary artery disease (Inactive) Pneumonia (Inactive) Surgical History S/P PTCA (percutaneous transluminal coronary angioplasty) (Chronic) Presence of surgically created arteriovenous shunt for hemodialysis (Acute 05/2017) Family History Mother Breast cancer Myocardial infarction CAD (coronary artery disease) Father Colon cancer Hypertension Myocardial infarction Other Family history of hypertension Social History Smoking Status: Never smoker second hand exposure: No alcohol intake: never substance use type: does not use caffeine: No what type of physical activity do you participate in: none frequency: does not exercise seatbelt use: always do you feel safe at home: Yes ROS Const Const: Negative for weakness, fatigue, fever(s) or headache(s) Eyes Eyes: Negative for blind spots, loss of peripheral vision or transient loss of vision ENT ENT: Negative for headache(s), dizziness, tinnitus or Nosebleed/epistaxis Cardio Chest Pain: No Palpitations: No Edema: None Muscle aches with walking: None Resp Respiratory: Positive for SOB with activity and SOB at rest; negative for SOB orthopnea\SOB lying down or Cough GI GI: Negative nausea, vomiting, heartburn or vomiting blood/hematemesis : Negative for hematuria Musc Musc: Negative for muscle aches/ myalgia Neuro Neuro: Negative for weakness, headache(s), dizziness, near syncope, syncope, lightheadedness or orthostatic symptoms Mario Hematologic/Lymphatic: Negative for easy bleeding Endo Endo: Negative for fatigue Cardiology Exam Const Appearance: cooperative, healthy appearing, comfortable and no acute distress Orientation: alert, awake and oriented x3 Head Head: normal to inspection Mouth: oral mucosae normal Neck Neck: no JVD and normal visual inspection Carotids: normal carotid upstroke Chest Chest inspection: normal inspection of the chest and normal respiratory effort Auscultation: Bilateral: Clear to Auscultation Cardio Rate: regular rate Rhythm: regular rhythm Heart sounds: S1 normal, S2 normal and positive S4; negative rub or gallop GI GI: normal to inspection Neuro General: alert, awake, oriented x3 and CN's II-XI intact bilaterally Skin Skin: no rashes or lesions noted Extremities Pulses: Normal: Right Radial Pulse, Diminished: Right Posterior Tibial Pulse, Left Posterior Tibial Pulse Upper Extremity: AV fistula left forearm Lower Extremity Edema: None: Bilateral Psych Psychological: normal affect Supplemental Info Echocardiogram in 2016 demonstrates an ejection fraction of 35%. Moderate mitral insufficiency. Mild tricuspid insufficiency. Mild aortic valve thickening. Trivial aortic valve insufficiency. RVSP 47 mmHg. Assessment AND Plan 1. Atherosclerosis of [place] coronary artery of [place] heart without angina pectoris I25.10 PTCA/HASMUKH to proximal RCA, mid LPL branch of the LCx, in mid LCx in April 2017; angioplasty and PCI to mid and distal RCA in 2014; thrombectomy and PCI to proximal, mid, and distal RCA in 2011; Plan Stable, from a cardiac standpoint patient does not have any symptoms of angina. He was concerned about his shortness of breath but this is improved since he took extra weight off during dialysis. He will let us know if his symptoms return. We recommend that they continue with current aggressive medical management and risk factor modification. 2. Essential hypertension I10 Plan Blood pressure is well controlled on current medications, we do not recommend any changes at this time. 3. Cardiomyopathy, ischemic I25.5 Plan Patient did have symptoms of shortness of breath that was concerning for him however these have since improved since his dialysis. For now will not make any adjustments. We will continue to monitor closely. 4. Hyperlipidemia associated with type 2 diabetes mellitus E11.69; E78.5 Plan Recent lipid profile demonstrates total cholesterol of 185, HDL 45, LDL 118. Will not make any adjustments. 5. Paroxysmal atrial fibrillation I48.0 Plan Patient has not had any symptomatic recurrence. He will continue with his current rate limiting medication. He is not anticoagulated and does not want to take an anticoagulant. He will continue with his aspirin and Plavix. Plan Detail Additional Comments Thank you for allowing us to participate in patient's plan of care, if you have any questions please do not hesitate to call. This note was generated using a voice recognition system and there may be incorrect words, spelling or punctuation errors that were not noted when reviewing the office note prior to saving. Follow Up 07/23/17 (keep as is) Coding Level of Care Code Off vis,est,level 3 Diagnoses Atherosclerosis of [place] coronary artery of [place] heart without angina pectoris I25.10 [place] vs. transplanted heart: [place] heart Essential hypertension I10 Hypertension type: essential hypertension Cardiomyopathy, ischemic I25.5 Hyperlipidemia associated with type 2 diabetes mellitus E11.69; E78.5 Paroxysmal atrial fibrillation I48.0 Coding Level of Care Code Off vis,est,level 3 Diagnoses Atherosclerosis of [place] coronary artery of [place] heart without angina pectoris I25.10 [place] vs. transplanted heart: [place] heart Essential hypertension I10 Hypertension type: essential hypertension Cardiomyopathy, ischemic I25.5 Hyperlipidemia associated with type 2 diabetes mellitus E11.69; E78.5 Paroxysmal atrial fibrillation I48.0 07/24/17 0930 <Electronically signed by Mirella FONSECA> Date Mirella FONSECA Cosigner Signature: Date (if applicable) CC: Sean Medina MD CBC W/DIFF, AUTOMATED Collected: 07/23/2017 Status: F Source: [place] 12:56 PM [facility] REPOSITORY TYPE CODE TESTS RESULT OUT OF RANGE REFERENCE UNITS LAB L100.1000 4.4-11.0 K/mm3 Normal WBC 7.9 LAB L100.1200 4.6-6.2 M/mm3 Low RBC 3.29 LAB L100.1300 13.0-16.5 g/dl Low HGB 10.9 LAB L100.1400 40-54 % Low HCT 32.0 LAB L100.1500 80-94 fL High MCV 97.3 LAB L100.1600 27.0-32.0 pg High MCH 33.1 LAB L100.1700 32-36 g/gl Normal MCHC 34.1 LAB L100.1810 11.6-14.6 % Normal RDW CV 14.6 LAB L100.1820 35.1-43.9 fl High RDW SD 48.2 LAB L100.1900 150-450 K/mm3 Normal PLT 225 LAB L100.2000 6.2-12.0 fl Normal MPV 10.7 LAB L100.2100 47-70 % High NEUT% 72.2 LAB L100.2200 19-41 % Low LY% 14.6 LAB L100.2300 0-10 % High MONO% 10.3 LAB L100.2400 0-5 % Normal EO% 2.5 LAB L100.2500 0-1 % Normal BASO% 0.1 LAB L100.2550 0.0-0.9 % Normal IM GRAN % 0.300 Result Comment: IG% - Immature Granulocytes (promyelocytes, myelocytes and metamyelocytes) > 1% indicates that a LEFT SHIFT is Present. LAB L100.2620 2.0-7.7 X10 3/uL Normal Absolute Neut 5.7 LAB L100.2720 0.83-4.51 X10 3/ul Normal Absolute Lymph 1.15 Performed By: #### L100.0100 #### [facility] [address] [place], [address] HEMOGLOBIN A1C Collected: 07/23/2017 Status: F Source: [place] 12:56 PM [facility] REPOSITORY TYPE CODE TESTS RESULT OUT OF RANGE REFERENCE UNITS LAB L501.9985 4.2-6.3 % Normal HGB A1C 5.8 Performed By: #### L501.9985 #### [facility] [address] [place], [address] COMPREHENSIVE METABOLIC Collected: 07/23/2017 Status: F Source: [facility] 12:56 PM [facility] REPOSITORY Order Comment: PT WAS NOT FASTING Comments: LIVER-MICROSOMAL AB [id number] SER/RF TYPE CODE TESTS RESULT OUT OF RANGE REFERENCE UNITS LAB L501.0100 74-106 mg/dL High GLU 149 Result Comment: Fasting Glucose result greater than or equal to 126 mg/dL suggests DIABETES MELLITUS per A.D.A. criteria. Please note revised GLUCOSE reference range effective 2017. LAB L501.1000 7-18 mg/dL Low BUN 5 LAB L501.1100 0.70-1.30 mg/dL High CREAT,SERUM 2.05 Result Comment: The validity of the calculated GFR AND GFRAA in patients over 70 years has not been determined. Clinical correlation is essential. LAB L501.1110 >60 mL/min Low EST GFR 34 Result Comment: Non- GFR Calc LAB L501.1115 >60 mL/min Low EST GFR - AA 41 Result Comment: GFR Calc LAB L501.1300 10-20 RATIO Low BUN/CRE 2.4 LAB L501.1500 6.4-8.2 g/dL Normal T PROT 7.4 LAB L501.1800 3.2-5.0 g/dL Low ALB 3.0 LAB L501.1950 2.2-4.2 g/dL High GLOB 4.4 LAB L501.2000 0.9-2.4 RATIO Low A/G 0.7 LAB L501.2200 8.5-10.1 mg/dL Low CA 7.7 LAB L501.4100 15-37 U/L Low AST 12 LAB L501.4305 45-117 U/L Normal ALK P 97 LAB L501.4405 16-61 U/L Low ALT 11 LAB L501.4600 0.20-1.00 mg/dL Normal T BILI 0.70 LAB L501.5300 136-145 mmol/L Normal NA 137 LAB L501.5600 3.5-5.1 mmol/L Low K 3.2 LAB L501.5900 98-107 mmol/L Low CL 97 LAB L501.6100 21.0-32.0 mmol/L High CO2 33.0 LAB L501.6200 5-15 Normal GAP 7 Performed By: #### L500.4050, L500.4100, L501.9520, L503.6075, L503.6150, L503.6550, L506.0400 #### [facility] [address] [place], [address] LIPID PROFILE Collected: 07/23/2017 Status: F Source: [place] 12:56 PM [facility] REPOSITORY Order Comment: PT WAS NOT FASTING Comments: LIVER-MICROSOMAL AB [id number] SER/RF TYPE CODE TESTS RESULT OUT OF RANGE REFERENCE UNITS LAB L501.4900 200 mg/dL Normal CHOL 185 Result Comment: <200 mg/dL Desirable 200-240 mg/dL Borderline >240 mg/dL High Risk LAB L501.5000 mg/dL Normal TRIG 108 Result Comment: The drugs N-Acetylcysteine and Metamizole may falsely depress this assay. Serum Triglycerides Reference Interval Normal <150 mg/dL Borderline high 150 - 199 mg/dL High 200 - 499 mg/dL Very High > or = 500 mg/dL LAB L501.6400 mg/dL Normal HDL 45 Result Comment: The drugs N-Acetylcysteine and Metamizole may falsely depress this assay. Reference Range HDL <40 mg/dL Low HDL Cholesterol HDL >or= 60 mg/dL High HDL Cholesterol LAB L501.6500 0-130 mg/dL Normal LDL 118 LAB L501.6600 5-40 mg/dL Normal VLDL 22 Performed By: #### L500.4050, L500.4100, L501.9520, L503.6075, L503.6150, L503.6550, L506.0400 #### [facility] [address] [place], [address] THYROID STIM HORMONE Collected: 07/23/2017 Status: F Source: [place] (TSH) 12:56 PM [facility] REPOSITORY Order Comment: PT WAS NOT FASTING Comments: LIVER-MICROSOMAL AB [id number] SER/RF TYPE CODE TESTS RESULT OUT OF RANGE REFERENCE UNITS LAB L501.9520 0.358-3.74 uIU/mL Normal TSH 1.15 Performed By: #### L500.4050, L500.4100, L501.9520, L503.6075, L503.6150, L503.6550, L506.0400 #### [facility] [address] [place] [address], [id number] (387) IRON BINDING Collected: 07/23/2017 Status: F Source: [place] CAPACITY,TOTAL 12:56 PM [facility] REPOSITORY Order Comment: PT WAS NOT FASTING Comments: LIVER-MICROSOMAL AB [id number] SER/RF TYPE CODE TESTS RESULT OUT OF RANGE REFERENCE UNITS LAB L503.6075 250-450 ug/dL Low TIBC 181 Performed By: #### L500.4050, L500.4100, L501.9520, L503.6075, L503.6150, L503.6550, L506.0400 #### [facility] [address] [place], [address] IRON Collected: 07/23/2017 Status: F Source: [place] 12:56 PM [facility] REPOSITORY Order Comment: PT WAS NOT FASTING Comments: LIVER-MICROSOMAL AB [id number] SER/RF TYPE CODE TESTS RESULT OUT OF RANGE REFERENCE UNITS LAB L503.6150 65-175 ug/dL Low IRON 62 Performed By: #### L500.4050, L500.4100, L501.9520, L503.6075, L503.6150, L503.6550, L506.0400 #### [facility] [address] [place], [address] FERRITIN Collected: 07/23/2017 Status: F Source: [place] 12:56 PM [facility] REPOSITORY Order Comment: PT WAS NOT FASTING Comments: LIVER-MICROSOMAL AB [id number] SER/RF TYPE CODE TESTS RESULT OUT OF REFERENCE UNITS RANGE LAB L503.6550 26-388 ng/mL High FERRITIN 774 Performed By: #### L500.4050, L500.4100, L501.9520, L503.6075, L503.6150, L503.6550, L506.0400 #### [facility] [address] [place], [address] T4 FREE DIRECT Collected: 07/23/2017 Status: F Source: [place] 12:56 PM [facility] REPOSITORY Order Comment: PT WAS NOT FASTING Comments: LIVER-MICROSOMAL AB [id number] SER/RF TYPE CODE TESTS RESULT OUT OF RANGE REFERENCE UNITS LAB L506.0400 0.76-1.46 ng/dL Normal T4 FREE 1.15 DIRECT Performed By: #### L500.4050, L500.4100, L501.9520, L503.6075, L503.6150, L503.6550, L506.0400 #### [facility] [address] [place], [address] MISCELLANEOUS LAB Collected: 07/23/2017 Status: F Source: [place] PROCEDURE 12:56 PM [facility] REPOSITORY Order Comment: Comments: LIVER-MICROSOMAL AB [id number] SER/RF Test(s) Ordered: LIVER-MICROSOMAL AB [id number] SER/RF TYPE CODE TESTS RESULT OUT OF RANGE REFERENCE UNITS LAB L801.1541 Normal [facility] LAB TEST Result Comment: TEST RESULT UNITS REF INTERVAL Liver-Kidney Microsomal Ab <1.0 Units 0.0 - 20.0 Negative 0.0 - 20.0 Equivocal 20.1 - 24.9 Positive >24.9 LKM type 1 antibodies are detected in patients with autoimmune hepatitis type 2 and in up to 8% of patients with chronic HCV infection. TESTING PERFORMED AT [facility]. ORIGINAL REPORT ON FILE IN LAB CONTAINS ADDITIONAL TEST SITE INFORMATION. Performed By: #### L801.1541 #### [facility] [address], [address] VITAMIN D 1,25-DIHYDROXY Collected: 07/23/2017 Status: F Source: [place] 12:56 PM [facility] REPOSITORY TYPE CODE TESTS RESULT OUT OF RANGE REFERENCE UNITS LAB L3300.0960 19.9-79.3 pg/mL Normal VITD 1,25 29.5 41938 Result Comment: Performed at: [address] [id number] Bulk Pigment Reducer: Santiago Oneil MD, Phone: [phone] Performed By: #### L3300.0960 #### [facility] (refer to report for specific site) refer to report for address and phone number THYROGLOBULIN W/ANTI-TG Collected: 07/23/2017 Status: F Source: [place] 12:56 PM [facility] REPOSITORY TYPE CODE TESTS RESULT OUT OF RANGE REFERENCE UNITS LAB L3300.7025 0.0-0.9 IU/mL High ANTI-TG 50.9 AB Result Comment: Thyroglobulin Antibody measured by [facility] LAB L3300.7030 . ng/mL Normal TG-LENORA 7.3 Result Comment: Reference Range: Pubertal Children and Adults: <40 According to the National Academy of Clinical Biochemistry, the reference interval for Thyroglobulin (TG) should be related to euthyroid patients and not for patients who underwent thyroidectomy. TG reference intervals for these patients depend on the residual mass of the thyroid tissue left after surgery. Establishing a post-operative baseline is recommended. The assay quantitation limit is 2.0 ng/mL. Performed at: [facility] [address] [id number] Bulk Pigment Reducer: Smith Neves PhD, Phone: [phone] Performed at: [facility] [address] [place] [id number] Bulk Pigment Reducer: Trev Sánchez MD, Phone: [phone] Performed By: #### L3300.6820 #### [facility] (refer to report for specific site) refer to report for address and phone number SURGERY VISIT REPORT Observed: 07/15/2017 Status: F Source: [place] 1:23 PM [facility] REPOSITORY [facility] [address] [place] [address]. 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 Is patient in pain?: No Allergies codeine Allergy (Verified 06/11/17 13:04) Itching Medications clopidogrel 75 mg tablet 75 mg PO QHS 04/27/17 [History Confirmed 07/14/17] pravastatin 80 mg tablet 80 mg PO QHS #30 tab 04/27/17 [Rx Confirmed 07/14/17] aspirin 81 mg chewable tablet 81 mg PO QDAY tab 04/28/17 [History Confirmed 07/14/17] Amlodipine [Norvasc] 10 mg PO QHS 06/01/17 [History Confirmed 07/14/17] Carvedilol [Coreg] 12.5 mg PO BID 06/01/17 [History Confirmed 07/14/17] Linagliptin [Tradjenta] 5 mg PO QHS 06/01/17 [History Confirmed 07/14/17] [facility] Medical History Old myocardial infarction (Chronic) 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) Family history of hypertension (Chronic) Other secondary pulmonary hypertension (Chronic) Subendocardial ischemia (Chronic) Ischemic cardiomyopathy (Acute) Nonrheumatic mitral valve regurgitation (Acute) Rheumatic tricuspid insufficiency (Acute) Paroxysmal atrial fibrillation (Chronic) Atherosclerotic heart disease of [place] coronary artery without angina pectoris (Chronic) Type II diabetes mellitus (Chronic) Hyperlipidemia associated with type 2 diabetes mellitus (Chronic) Hypertension (Chronic) Uncontrollable nausea and vomiting (Acute) Left flank pain (Acute) Non-STEMI (non-ST elevated myocardial infarction) (Acute) Unstable angina (Acute) HLD (hyperlipidemia) (Chronic) Diabetes mellitus (Chronic) Acute on chronic renal insufficiency (Acute) Hyperkalemia (Acute) Coronary artery disease (Inactive) Pneumonia (Inactive) Surgical History S/P PTCA (percutaneous transluminal coronary angioplasty) (Chronic) Presence of surgically created arteriovenous shunt for hemodialysis (Acute 05/2017) Family History Mother Breast cancer Myocardial infarction CAD (coronary artery disease) Father Colon cancer Hypertension Myocardial infarction Other Family history of hypertension Social History Smoking Status: Never smoker second hand exposure: No alcohol intake: never substance use type: does not use caffeine: No what type of physical activity do you participate in: none frequency: does not exercise seatbelt use: always do you feel safe at home: Yes HPI HPI HPI: PAXTON CRUZ, is a 71 M I am following for chronic renal failure. Dr. Gunn performed a transposition left forearm cephalic vein to radial artery arteriovenous fistula creation on 06/08/17. Patient tolerated the procedure well. Patient denies pain/discomfort. He notes minimal amount of numbness of the hand and fingers. He is performing hand exercises. Patient is currently on dialysis via chest catheters. Exam Extrem Other: Left forearm AV fistula- excellent pulse, bruit and thrill. No erythema, swelling, pseudoaneurysm noted. Incision is nicely healing. Assessment AND Plan Problems 1. ESRD (end stage renal disease) on dialysis N18.6; Z99.2 Plan - Continue hand exercises - Follow-up in 3-4 weeks Coding Level of Care Code Global Post Op Diagnoses ESRD (end stage renal disease) on dialysis N18.6; Z99.2 07/15/17 1323 <Electronically signed by Aydee Calloway PA-C> Date Aydee Calloway PA-C Cosigner Signature: Date (if applicable) CC: Cynthia Carmona DO; Sean Medina MD SURGERY VISIT REPORT Observed: 06/23/2017 Status: F Source: [place] 3:32 PM [facility] [address] [place] [address] OFFICE VISIT Date of Service: 06/23/17 MR#: [id number] Acct: [id number] Name: PAXTON CRUZ JrVanessa Rep #: [id number] : 1945 Provider: Aydee Calloway PA-C Age/Sex: 71/M Location: [facility] Status: Signed Intake Intake Visit Reasons: F/U Fistula 06/11 RC for bandage change Photonics Engineering Technician Required: No Is patient in pain?: Yes (Left wrist) Pain scale (1-10): 7 Allergies codeine Allergy (Verified 06/11/17 13:04) Itching Medications clopidogrel 75 mg tablet 75 mg PO QHS 04/27/17 [History Confirmed 06/11/17] pravastatin 80 mg tablet 80 mg PO QHS #30 tab 04/27/17 [Rx Confirmed 06/11/17] aspirin 81 mg chewable tablet 81 mg PO QDAY tab 04/28/17 [History Confirmed 06/11/17] Amlodipine [Norvasc] 10 mg PO QHS 06/01/17 [History Confirmed 06/11/17] Carvedilol [Coreg] 12.5 mg PO BID 06/01/17 [History Confirmed 06/11/17] Linagliptin [Tradjenta] 5 mg PO QHS 06/01/17 [History Confirmed 06/11/17] [facility] Medical History Old myocardial infarction (Chronic) 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) Family history of hypertension (Chronic) Other secondary pulmonary hypertension (Chronic) Subendocardial ischemia (Chronic) Ischemic cardiomyopathy (Acute) Nonrheumatic mitral valve regurgitation (Acute) Rheumatic tricuspid insufficiency (Acute) Paroxysmal atrial fibrillation (Chronic) Atherosclerotic heart disease of [place] coronary artery without angina pectoris (Chronic) Type II diabetes mellitus (Chronic) Hyperlipidemia associated with type 2 diabetes mellitus (Chronic) Hypertension (Chronic) Uncontrollable nausea and vomiting (Acute) Left flank pain (Acute) Non-STEMI (non-ST elevated myocardial infarction) (Acute) Unstable angina (Acute) HLD (hyperlipidemia) (Chronic) Diabetes mellitus (Chronic) Acute on chronic renal insufficiency (Acute) Hyperkalemia (Acute) Coronary artery disease (Inactive) Pneumonia (Inactive) Surgical History S/P PTCA (percutaneous transluminal coronary angioplasty) (Chronic) Family History Mother Breast cancer Myocardial infarction CAD (coronary artery disease) Father Colon cancer Hypertension Myocardial infarction Other Family history of hypertension Social History Smoking Status: Never smoker second hand exposure: No alcohol intake: never substance use type: does not use caffeine: No what type of physical activity do you participate in: none frequency: does not exercise seatbelt use: always do you feel safe at home: Yes HPI HPI HPI: PAXTON CRUZ, is a 71 M I am following for chronic renal failure. Dr. Gunn performed a transposition left forearm cephalic vein to radial artery arteriovenous fistula creation on 06/08/17. Patient tolerated the procedure well. Patient denies pain/discomfort. He notes minimal amount of numbness of the hand and fingers. He is performing hand exercises. Patient is currently on dialysis via chest catheters. Exam Extrem Other: Left forearm AV fistula- incision c/d/i. No erythema or infection noted. Excellent pulse, bruit and thrill. Assessment AND Plan Problems 1. ESRD (end stage renal disease) on dialysis N18.6; Z99.2 Plan - Continue hand exercises - Follow-up in 3 weeks Coding Level of Care Code Global Post Op Diagnoses ESRD (end stage renal disease) on dialysis N18.6; Z99.2 06/23/17 1532 <Electronically signed by Aydee Calloway PA-C> Date Aydee Calloway PA-C Cosigner Signature: Date (if applicable) CC: SURGERY VISIT REPORT Observed: 06/11/2017 Status: F Source: [place] 3:17 PM [facility] REPOSITORY [facility] [address] [place] [address] OFFICE VISIT Date of Service: 06/11/17 MR#: [id number] Acct: [id number] Name: NANCYPAXTON Jr. Rep #: [id number] : 1945 Provider: Aydee Calloway PA-C Age/Sex: 71/M Location: [facility] Status: Signed Intake Intake Visit Reasons: f/u fistula placement for bandage change 06/08/2017 Photonics Engineering Technician Required: No Is patient in pain?: No Allergies codeine Allergy (Verified 06/11/17 13:04) Itching Medications clopidogrel 75 mg tablet 75 mg PO QHS 04/27/17 [History Confirmed 06/11/17] pravastatin 80 mg tablet 80 mg PO QHS #30 tab 04/27/17 [Rx Confirmed 06/11/17] aspirin 81 mg chewable tablet 81 mg PO QDAY tab 04/28/17 [History Confirmed 06/11/17] Amlodipine [Norvasc] 10 mg PO QHS 06/01/17 [History Confirmed 06/11/17] Carvedilol [Coreg] 12.5 mg PO BID 06/01/17 [History Confirmed 06/11/17] Linagliptin [Tradjenta] 5 mg PO QHS 06/01/17 [History Confirmed 06/11/17] [facility] Medical History Old myocardial infarction (Chronic) 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) Family history of hypertension (Chronic) Other secondary pulmonary hypertension (Chronic) Subendocardial ischemia (Chronic) Ischemic cardiomyopathy (Acute) Nonrheumatic mitral valve regurgitation (Acute) Rheumatic tricuspid insufficiency (Acute) Paroxysmal atrial fibrillation (Chronic) Atherosclerotic heart disease of [place] coronary artery without angina pectoris (Chronic) Type II diabetes mellitus (Chronic) Hyperlipidemia associated with type 2 diabetes mellitus (Chronic) Hypertension (Chronic) Uncontrollable nausea and vomiting (Acute) Left flank pain (Acute) Non-STEMI (non-ST elevated myocardial infarction) (Acute) Unstable angina (Acute) HLD (hyperlipidemia) (Chronic) Diabetes mellitus (Chronic) Acute on chronic renal insufficiency (Acute) Hyperkalemia (Acute) Coronary artery disease (Inactive) Pneumonia (Inactive) Surgical History S/P PTCA (percutaneous transluminal coronary angioplasty) (Chronic) Family History Mother Breast cancer Myocardial infarction CAD (coronary artery disease) Father Colon cancer Hypertension Myocardial infarction Other Family history of hypertension Social History Smoking Status: Never smoker second hand exposure: No alcohol intake: never substance use type: does not use caffeine: No what type of physical activity do you participate in: none frequency: does not exercise seatbelt use: always do you feel safe at home: Yes HPI HPI HPI: PAXTON CRUZ, is a 71 M I am following for chronic renal failure. Dr. Gunn performed a transposition left forearm cephalic vein to radial artery arteriovenous fistula creation on 06/08/17. Patient tolerated the procedure well. Patient denies pain/discomfort. He notes minimal amount of numbness of the hand and fingers. He is performing hand exercises. Patient is currently on dialysis via chest catheters. Exam Extrem Other: Left forearm AV fistula- incision c/d/i. No erythema or infection noted. Moderate amount of ecchymosis noted. Small hematoma noted at the medial aspect of the incision. Assessment AND Plan Problems 1. ESRD (end stage renal disease) on dialysis N18.6; Z99.2 Plan - Continue hand exercises - Follow-up in 2 weeks Coding Level of Care Code Global Post Op Diagnoses ESRD (end stage renal disease) on dialysis N18.6; Z99.2 06/11/17 1517 <Electronically signed by Aydee Calloway PA-C> Date Aydee Galvan Signature: Date (if applicable) CC: DISCHARGE INSTRUCTION Observed: 06/09/2017 Status: F Source: [place] 5:48 AM [facility] REPOSITORY [facility] Medical Records Department [address] [place] [address] Instructions for Home/Discharge Instructions 06/08/17 1253 MR#: [id number] Acct: [id number] Name: PAXTON CRUZ Jr. Rep #: [id number] : 1945 71 From: Kristian Gunn MD PCP: Sean Medina MD Status: DEP [facility] Discharge Diet: Renal Diet Discharge Activity: May Not Drive - for 2-3 days or while taking narcotic pain medications., May Not Shower, May Take a Tub Bath - in 5 days. Lifting Restrictions: 5 pounds Keep extremity elevated above heart level: - - Keep arm elevated above the heart level for 3 days. Additional Activity Instructions:: Exercise hand vigorously with a stress ball. Call your doctor if your incision/area has: Continuous Slow Oozing, Sudden Increased Bleeding - apply pressure and call your doctor., Increased Pain/ Swelling, Increased Redness, Foul Smelling Discharge Call your doctor if you observe: Fever of 101 or Higher Suture Line Care: Avoid Pulling/Pushing, Avoid Pinching/Bending Cleanse incision/area with: Keep Dressing Clean AND Dry Additional Dressing/Incision Instructions:: Please keep your left arm dressed and elevated for comfort. Office appt on with Aydee please Allergies/Adverse Reactions: Allergies codeine Allergy (Verified 06/01/17 10:58) Itching Medications to take at Discharge clopidogrel 75 mg tablet 75 mg PO QHS 04/27/17 pravastatin 80 mg tablet 80 mg PO QHS #30 tab 04/27/17 aspirin 81 mg chewable tablet 81 mg PO QDAY tab 04/28/17 Amlodipine [Norvasc] 10 mg PO QHS 06/01/17 Carvedilol [Coreg] 12.5 mg PO BID 06/01/17 Linagliptin [Tradjenta] 5 mg PO QHS 06/01/17 Primary Care Physician: Sean Medina MD [Primary Care Provider] - Please Follow Up With: Kristian Gunn MD - [phone] When: Appt on with Aydee please 06/09/17 0548 <Electronically signed by Kristian Gunn MD> Date Kristian Gunn MD CC: Sean Medina MD OPERATIVE REPORT Observed: 06/09/2017 Status: F Source: [place] 5:48 AM [facility] REPOSITORY [facility] Medical Records Department [address] [place] [address] Operative Report 06/08/17 1255 MR#: [id number] Acct: [id number] Name: NANCYPAXTON Roverto Richard Rep #: [id number] : 1945 71 From: Kristian Gunn MD PCP: Sean Medina MD Status: [facility] Y Location: [facility] Problem List (1) ESRD (end stage renal disease) on dialysis Status: Chronic Report of Operation Date of Procedure: 06/08/17 Pre-Operative Diagnosis: End-stage renal failure in need of arteriovenous access Post-Operative Diagnosis: Same Surgery/Procedure Performed:: Transposition left forearm cephalic vein to radial artery arteriovenous fistula creation Description of Surgical Findings:: Timeout and informed consent was obtained. 71-year-old gent was taken out from placement table. Underwent monitored anesthesia care. 21 cc of 1% lidocaine mixed 50-50 with 0.5% Marcaine was utilized and 12 cc of 0.5% lidocaine. Ultrasound was used to identify the cephalic vein. It was marked. Then the arm was prepped. Local was instilled. A longitudinal incision was made over the vein and the vein was harvested with securing side branches with 4-0 Vicryl ligatures and hemoclips were indicated. The vein was dissected free distally to a branch point in the more proximally right up to the antecubital crease. Then close to the wrist after measurement sharp and blunt dissection was used to identify the radial artery and circumferential control was obtained. A vessel loop was placed. A tunnel was then made from the radial artery to the antecubital space medial to the harvest incision. The vein was ligated distally. The patient was given 9000 units of heparin. The vein and was spatulated and then irrigated. Good diameter was achieved. The vein was tunneled from the antecubital space to the radial artery. Peripheral vascular clamps are placed on the radial artery and 11 blade was used to make an arteriotomy which was extended with Rojo scissors. A end-to-side anastomosis was created with a running 7-0 Prolene. Prior to completion is good antegrade and retrograde flow. The anastomosis was completed with the immediate good flow throughout the fistula. Doppler confirmed excellent signal. The vein was in good positional lie. Hand appear to be viable. The patient received total 30 mg of protamine his reversal agent. The wounds were closed with deep layer of interrupted or running septic or 3-0 Vicryl. The skin edges proximate running septic or 4-0 Monocryl. Steri-Strips Telfa soft roll Alfa wrap applied. Sponge instrument and needle counts were reported to the surgeon to be correct. Estimates none. Drains none. Blood loss 200 cc. Kristian Gunn M.D., F.A.C.S. Type of Anesthesia:: Local MAC Anesthesiologist: Bradford Coley 06/09/17 0548 <Electronically signed by Kristian Gunn MD> Date Kristian Gunn MD CC: Sean Medina MD; Kristian Gunn MD Signed BEDSIDE GLUCOSE Collected: 06/08/2017 Status: F Source: [place] 9:11 AM [facility] REPOSITORY TYPE CODE TESTS RESULT OUT OF REFERENCE UNITS RANGE LAB L501.080 70-110 mg/dL High BEDSIDE GLU 138 Result Comment: MANAGEMENT OF PATIENT CARE PER NURSING PROTOCOL Performed By: #### L501.080 #### [facility] Point of Care [address] [place] [address] BASIC METABOLIC Collected: 06/08/2017 Status: F Source: [place] PROFILE (BMP) 9:00 AM [facility] REPOSITORY Order Comment: Has pt arrived? Y Comments: DRAW STAT PRE-OP TYPE CODE TESTS RESULT OUT OF RANGE REFERENCE UNITS LAB L501.0100 74-106 mg/dL High GLU 140 Result Comment: Fasting Glucose result greater than or equal to 126 mg/dL suggests DIABETES MELLITUS per A.D.A. criteria. Please note revised GLUCOSE reference range effective 2017. LAB L501.1000 7-18 mg/dL Normal BUN 16 LAB L501.1100 0.70-1.30 mg/dL High CREAT,SERUM 3.63 Result Comment: The validity of the calculated GFR AND GFRAA in patients over 70 years has not been determined. Clinical correlation is essential. LAB L501.1110 >60 mL/min Low EST GFR 18 Result Comment: Non- GFR Calc LAB L501.1115 >60 mL/min Low EST GFR - AA 21 Result Comment: GFR Calc LAB L501.1255 ml/min Normal Estimated CRCL 16.94 LAB L501.1300 10-20 RATIO Low BUN/CRE 4.4 LAB L501.2200 8.5-10 mg/dL Normal .1 CA 8.8 LAB L501.5300 136-14 mmol/L Normal 5 NA 137 LAB L501.5600 3.5-5. mmol/L Low 1 K 3.3 LAB L501.5900 98-107 mmol/L Normal CL 101 LAB L501.6100 21.0-3 mmol/L Normal 2.0 CO2 26.0 LAB L501.6200 5-15 Normal GAP 10 Performed By: #### L500.2500 #### [facility] [address] [place], [address] BASIC METABOLIC Collected: 06/02/2017 Status: F Source: [place] PROFILE (BMP) 11:35 AM [facility] REPOSITORY TYPE CODE TESTS RESULT OUT OF RANGE REFERENCE UNITS LAB L501.0100 74-106 mg/dL High GLU 137 Result Comment: Fasting Glucose result greater than or equal to 126 mg/dL suggests DIABETES MELLITUS per A.D.A. criteria. Please note revised GLUCOSE reference range effective 2017. LAB L501.1000 7-18 mg/dL Low BUN 5 LAB L501.1100 0.70-1.30 mg/dL High CREAT,SERUM 1.79 Result Comment: The validity of the calculated GFR AND GFRAA in patients over 70 years has not been determined. Clinical correlation is essential. LAB L501.1110 >60 mL/min Low EST GFR 40 Result Comment: Non- GFR Calc LAB L501.1115 >60 mL/min Low EST GFR - AA 48 Result Comment: GFR Calc LAB L501.1300 10-20 RATIO Low BUN/CRE 2.8 LAB L501.2200 8.5-10.1 mg/dL Low CA 7.5 LAB L501.5300 136-145 mmol/L Normal NA 138 LAB L501.5600 3.5-5.1 mmol/L Low K 3.3 LAB L501.5900 98-107 mmol/L Normal CL 99 LAB L501.6100 21.0-32.0 mmol/L High CO2 33.0 LAB L501.6200 5-15 Normal GAP 6 Performed By: #### L500.2500 #### [facility] [address] [place], [address] 12 LEAD ELECTROCARDIOGRAM Observed: 05/27/2017 Status: F Source: [place] 1:25 PM [facility] REPOSITORY [facility] [address] [place] [address] 12 Lead EKG 05/21/17 0534 MR#: [id number] Acct: [id number] Name: PAXTON CRUZ Jr. Rep #: [id number] : 1945 71 From: Trevor Bernal MD Attending Dr: Saroj Luna MD Status: DEP [facility] Ordering Dr: Saroj Luna MD Date: 05/21/17 Location: [facility] Sex: M C Admitted: Test Reason : AM EKG Blood Pressure : / mmHG Vent. Rate : 081 BPM Atrial Rate : 081 BPM P-R Int : 276 ms QRS Dur : 146 ms QT Int : 412 ms P-R-T Axes : 063 058 244 degrees QTc Int : 478 ms Sinus rhythm with 1st degree A-V block Right bundle branch block T wave abnormality, consider inferolateral ischemia Abnormal ECG Confirmed by GABE EDEN, TREVOR ([id number]), television news video editor LAITH OSULLIVAN ([id number]) on 05/27/2017 1:25:06 PM Referred By: Saroj Luna Confirmed By:TREVOR BERNAL MD 05/27/17 1325 Date Trevor Bernal MD CC: Saroj Luna MD; Sean Medina MD Signed 12 LEAD ELECTROCARDIOGRAM Observed: 05/27/2017 Status: F Source: [place] 1:25 PM [facility] REPOSITORY [facility] [address] [place] [address] 12 Lead EKG 05/20/17 1445 MR#: [id number] Acct: [id number] Name: PAXTON CRUZ JrVanessa Rep #: [id number] : 1945 71 From: Trevor Bernal MD Attending Dr: Saroj Luna MD Status: [facility] Ordering Dr: Saroj Luna MD Date: 05/20/17 Location: [facility] Sex: M C Admitted: Test Reason : POST CATH Blood Pressure : / mmHG Vent. Rate : 087 BPM Atrial Rate : 087 BPM P-R Int : 272 ms QRS Dur : 142 ms QT Int : 406 ms P-R-T Axes : 067 051 259 degrees QTc Int : 488 ms Sinus rhythm with 1st degree A-V block Right bundle branch block T wave abnormality, consider lateral ischemia Abnormal ECG Confirmed by TREVOR BERNAL MD ([id number]), television news video editor LAITH OSULLIVAN ([id number]) on 05/27/2017 1:25:24 PM Referred By: Saroj Luna Confirmed By:TREVOR BERNAL MD 05/27/17 1325 Date Trevor Bernal MD CC: Saroj Luna MD; Sean Medina MD Signed CARDIOLOGY VISIT Observed: 05/26/2017 Status: F Source: [place] REPORT 11:03 AM [facility] REPOSITORY [facility] [address] [place] [address] OFFICE VISIT Date of Service: 05/25/17 MR#: [id number] Acct: [id number] Name: PAXTON CRUZ Jr. Rep #: [id number] : 1945 Provider: CLAUDIA Ferguson Age/Sex: 71/M Location: [facility] Status: Signed HPI HPI Details: PAXTON CRUZ, is a 71 M who presents to the office today for a cardiovascular outpatient follow-up. Patient is a history of coronary artery disease status post PTCA/HASMUKH to proximal RCA, mid LPL branch of the LCx, and mid LCx in April 2017, angioplasty and PCI to mid and distal RCA in 2014, thrombectomy and PCI to proximal, mid, and distal RCA in 2011, ischemic mediated cardiomyopathy, paroxysmal atrial fibrillation, hypertension, hyperlipidemia, diabetes, and renal insufficiency with dialysis Thursday, , Thursday. Pt. denies chest, arm, jaw, or neck discomfort. His exercise tolerance is stable. Pt. denies symptoms of CHF, palpitations, lightheadedness, dizziness, near syncope, or syncopal episodes. Pt. denies worsening edema or claudication issues. Pt. denies orthopnea, PAD, fever, chills, blood in urine, blood in stool, myalgia, or unexplainable fatigue. Patient states since starting Coreg he has notice his balance to be off that is made worse after dialysis. He decreased the dosage at home and symptoms still persisted. He thus has stopped it and symptoms resolved. He states when he left the hospital his left thumb was some swelling. He soaked it in Epsom salt, which has improved it. He states his breathing and cough are improved since PCI. Intake Vital Signs05/25/17 Height 5 ft 7 in 05/25/17 Weight: 171 lb Intake Visit Reasons: 6 M FU [employer] Required: No Accompanied by: None Is patient in pain?: No Allergies codeine Allergy (Verified 05/25/17 08:50) Itching Medications clopidogrel 75 mg tablet 75 mg PO QDAY 04/27/17 [History Confirmed 05/21/17] isosorbide mononitrate ER 120 mg tablet,extended release 24 hr 120 mg PO DAILY 04/27/17 [History Confirmed 05/21/17] pravastatin 80 mg tablet 80 mg PO QHS #30 tab 04/27/17 [Rx Confirmed 05/21/17] aspirin 81 mg chewable tablet 81 mg PO QDAY tab 04/28/17 [History Confirmed 05/21/17] Guaifen/Phenyleph/Acetaminophn [Severe Sinus Congest-Pain Cplt] 1 ea PO Q6H PRN PRN 05/19/17 [History Confirmed 05/19/17] Ensure Enlive 120 ml PO 4X/DAY liquid 05/21/17 [Rx] carvedilol 3.125 mg tablet 3.125 mg PO BID #60 tab 05/25/17 [Rx Confirmed 05/25/17] Ejection fraction %: 20 to 24 PFSH Medical History Old myocardial infarction (Chronic) 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) Family history of hypertension (Chronic) Other secondary pulmonary hypertension (Chronic) Subendocardial ischemia (Chronic) Ischemic cardiomyopathy (Acute) Nonrheumatic mitral valve regurgitation (Acute) Rheumatic tricuspid insufficiency (Acute) Paroxysmal atrial fibrillation (Chronic) Atherosclerotic heart disease of [place] coronary artery without angina pectoris (Chronic) Type II diabetes mellitus (Chronic) Hyperlipidemia associated with type 2 diabetes mellitus (Chronic) Hypertension (Chronic) Uncontrollable nausea and vomiting (Acute) Left flank pain (Acute) Non-STEMI (non-ST elevated myocardial infarction) (Acute) Unstable angina (Acute) HLD (hyperlipidemia) (Chronic) Diabetes mellitus (Chronic) Acute on chronic renal insufficiency (Acute) Hyperkalemia (Acute) Coronary artery disease (Inactive) Pneumonia (Inactive) Surgical History S/P PTCA (percutaneous transluminal coronary angioplasty) (Chronic) Family History Mother Breast cancer Myocardial infarction CAD (coronary artery disease) Father Colon cancer Hypertension Myocardial infarction Other Family history of hypertension Social History Smoking Status: Never smoker second hand exposure: No alcohol intake: never substance use type: does not use caffeine: No what type of physical activity do you participate in: none frequency: does not exercise seatbelt use: always do you feel safe at home: Yes ROS Const Const: Negative for fatigue, weakness, body ache, fever(s) or chills ENT ENT: Negative for dizziness Cardio Chest Pain: No Palpitations: No Edema: None Muscle aches with walking: None Resp Respiratory: Negative for SOB with activity, SOB at rest, SOB orthopnea\SOB lying down or paroxysmal nocturnal dyspnea GI GI: Negative nausea, black,tarry stools, bright, red blood in stools or vomiting blood/hematemesis : Negative for hematuria or frequent nighttime urination/ nocturia Musc Musc: Negative for muscle aches/ myalgia Neuro Neuro: Positive for lack of coordination (balance); negative for weakness, dizziness, lightheadedness, near syncope, syncope or orthostatic symptoms Endo Endo: Negative for fatigue Cardiology Exam Const Appearance: cooperative, healthy appearing, comfortable and no acute distress Orientation: alert, awake and oriented x3 Head Head: normal to inspection Mouth: oral mucosae normal Neck Neck: no JVD and normal visual inspection Carotids: normal carotid upstroke Chest Chest inspection: normal inspection of the chest and normal respiratory effort Auscultation: Bilateral: Clear to Auscultation Cardio Rate: regular rate Rhythm: regular rhythm Heart sounds: S1 normal and S2 normal; negative rub or gallop GI GI: normal to inspection Neuro General: alert, awake, oriented x3 and CN's II-XI intact bilaterally Skin Skin: no rashes or lesions noted Extremities Pulses: Normal: Right Posterior Tibial Pulse, Left Posterior Tibial Pulse, Right Radial Pulse, Left Radial Pulse Lower Extremity Edema: None: Bilateral Psych Psychological: normal affect Supplemental Info Echocardiogram from April 2017 showed an estimated ejection fraction of 20%, mildly enlarged left atrium, mild diffuse mitral valve thickening, mild papillary muscle dysfunction of the mitral valve, mild to moderate mitral valve insufficiency, mild to moderate tricuspid valve insufficiency, aortic sclerosis, no stenosis, trivial aortic valve insufficiency, small pericardial effusion, no echocardiographic indications of cardiac tamponade, echolucency compatible with a pleural effusion, and an RVSP of 55 mmHg. Stress test from April 2017 showed an area of stress-induced myocardial ischemia involving portions of the mid inferolateral segments and an EF of 30%. Heart catheterization from April 2017 showed [place] multivessel coronary artery disease, mild aortic valve stenosis, and no intracardiac shunting. patient returned to [employer] [facility] approximately 2 weeks later underwent PTCA/HASMUKH to proximal RCA, mid LPL branch of the LCx, and mid LCx. No PCI was performed to OM branch due to small vessel disease. Assessment AND Plan 1. Atherosclerosis of [place] coronary artery of [place] heart without angina pectoris I25.10 PTCA/HASMUKH to proximal RCA, mid LPL branch of the LCx, in mid LCx in April 2017; angioplasty and PCI to mid and distal RCA in 2014; thrombectomy and PCI to proximal, mid, and distal RCA in 2011; TJ Cheng Patient denies any chest pain, arm pain, jaw pain, neck pain, shortness of breath, or fatigue suggestive of angina at this time. We will continue to monitor this. We will not make any medication regimen changes and will continue risk factor modification. Patient declined cardiac rehab due to time constraints with dialysis 3 days a week. He will continue with walking and stationary bike exercises. We will see him back in approximately 3 months to evaluate overall progress and to assess prior to patient moving to [place]. 2. Ischemic cardiomyopathy I25.5 TJ Cheng Patient's most recent echocardiogram showed an ejection fraction of 30%. Patient denies any shortness of breath or lower extremity pedal edema. We will continue to monitor this. Patient will continue current medications which include low-dose beta-bishnu. 3. Essential hypertension I10 TJ Cheng Patient's blood pressure is well-controlled today in the office. We will continue to monitor this. We will not make any medication regimen changes. If patient ever developed hypotension from dialysis we can consider adjusting isosorbide. Hopefully since patient is post PCI he does not develop any chest pain. 4. Hyperlipidemia, unspecified hyperlipidemia type E78.5 TJ Cheng Laboratory Tests Triglycerides 89 Cholesterol 98 LDL Cholesterol 43 HDL Cholesterol 37 L Patient will continue current cholesterol-lowering medication. 5. Paroxysmal atrial fibrillation I48.0 TJ Cheng Patient appears to be maintaining regular rhythm. Patient notices since the introduction of carvedilol that he has developed some balance issues. He has stopped this medication his own accord. We will reintroduce it at a lower dose of 3.125 mg twice daily. Hopefully this will not cause the same issues. Patient is not on oral anticoagulation at this time. 6. Type 2 diabetes mellitus with other circulatory complication, without long-term current use of insulin E11.59 TJ Cheng Patient is not on any diabetic medications. He will continue follow-up with primary care physician for management/monitoring of this. 7. ESRD (end stage renal disease) on dialysis N18.6; Z99.2 TJ Cheng Patient will proceed with dialysis as scheduled. He states undergoing a fistula development on June 08, [address] Gunn. Patient Instructions - TJ Mixon Discussed the above patient with Dr. Bernal in Dr. Dan's absence, he agrees with the plan of care. Thank you for allowing us to participate in the patients plan of care, if you have any questions please do not hesitate to call. This note was generated using a voice recognition system and there may be incorrect words, spelling or punctuation that were not noted when reviewing the office note prior to saving. Plan Detail Other Medications New: Discontinued: carvedilol administer with food (meal or snack) Discontinued Reason:12.5 mg PO BID Pt no longer taking Additional Comments - TJ Mixon Discussed the above patient with Dr. Bernal in Dr. Dan's absence, he agrees with the plan of care. Thank you for allowing us to participate in the patients plan of care, if you have any questions please do not hesitate to call. This note was generated using a voice recognition system and there may be incorrect words, spelling or punctuation that were not noted when reviewing the office note prior to saving. Follow Up 10 Months (PFM) 3 Months ([facility]) Coding Level of Care Code Off vis,est,level 3 Diagnoses Atherosclerosis of [place] coronary artery of [place] heart without angina pectoris I25.10 [place] vs. transplanted heart: [place] heart Ischemic cardiomyopathy I25.5 Essential hypertension I10 Hypertension type: essential hypertension Hyperlipidemia, unspecified hyperlipidemia type E78.5 Hyperlipidemia type: unspecified Paroxysmal atrial fibrillation I48.0 Type 2 diabetes mellitus with other circulatory complication, without long-term current use of insulin E11.59 Diabetes mellitus complication detail: with other circulatory complications Diabetes mellitus complication status: with circulatory complication Diabetes mellitus terminal superintendent insulin use: without detention use ESRD (end stage renal disease) on dialysis N18.6; Z99.2 Coding Level of Care Code Off vis,est,level 3 Diagnoses Atherosclerosis of [place] coronary artery of [place] heart without angina pectoris I25.10 [place] vs. transplanted heart: [place] heart Ischemic cardiomyopathy I25.5 Essential hypertension I10 Hypertension type: essential hypertension Hyperlipidemia, unspecified hyperlipidemia type E78.5 Hyperlipidemia type: unspecified Paroxysmal atrial fibrillation I48.0 Type 2 diabetes mellitus with other circulatory complication, without long-term current use of insulin E11.59 Diabetes mellitus complication detail: with other circulatory complications Diabetes mellitus complication status: with circulatory complication Diabetes mellitus detention insulin use: without terminal superintendent use ESRD (end stage renal disease) on dialysis N18.6; Z99.2 05/25/17 1248 <Electronically signed by Sean Ferguson CARE PROGRAM DIRECTOR-C> Date Sean Ferguson CARE PROGRAM DIRECTOR-C 05/26/17 1103<Electronically signed by Trevor Bernal MD> Cosigner Signature: Date (if applicable) Trevor Bernal MD CC: Sean Medina MD CONSULTATION Observed: 05/21/2017 Status: F Source: [place] 11:52 AM [facility] REPOSITORY [facility] Medical Records Department [address] [place] [address] Consultation 05/21/17 1145 MR#: [id number] Acct: [id number] Name: NANCYPAXTON Roverto Richard Rep #: [id number] : 1945 71 From: Esvin Scott MD PCP: Sean Medina MD Status: [facility] Y Location: ICU [place] [address] Problem List (1) ESRD (end stage renal disease) on dialysis Status: Acute Consultation - Renal 05/21/17 PCP/ Referring MD: Requesting physician: Dr Luna Primary care physician: Sean Medina MD Reason for Consultation:: ESRD - History of Present Illness History of Present Illness: The patient is a 71 year old M who was admitted to [facility] electively after a cardiac cath and PCI. ESRD on HD TTS schedule Access is RIJ TDC. was scheduled for AVF placement soon currently complaints of some pain and swelling in left thumb - Allergies Allergies: Allergies codeine Allergy (Verified 05/20/17 09:59) Itching - Current Medications Current Medications: Current Medications Aspirin (Aspirin, Baby) 81 mg PO DAILY@0800 [facility] Atropine Sulfate () 0.5 mg IV UD PRN PRN Reason: HR <50 bpm Carvedilol (Coreg) 12.5 mg PO BID [facility] Last Admin: 05/20/17 21:29 Dose: 12.5 mg Clopidogrel Bisulfate (Plavix) 75 mg PO DAILY [facility] Sodium Chloride () 250 mls @ 15 mls/hr IV .[id number] PRN PRN Reason: SALINE FLUSH Sodium Chloride () 250 mls @ 15 mls/hr IV .[id number] PRN PRN Reason: SALINE FLUSH Isosorbide Mononitrate (Imdur) 120 mg PO DAILY [facility] Nutritional Formula (Lactose Free) (Ensure Enlive) 120 ml PO 4X/DAY [facility] Last Admin: 05/20/17 21:28 Dose: Not Given Pravastatin Sodium (Pravachol) 80 mg PO QHS [facility] Last Admin: 05/20/17 21:29 Dose: 80 mg Sodium Chloride () 500 ml IV BOLUS PRN PRN Reason: VASO-VAGAL PROTOCOL Sodium Chloride () 5 - 30 ml IV UD PRN PRN Reason: SALINE FLUSH Last Admin: 05/20/17 21:29 Dose: 30 ml - Past Medical History Past Medical History (Chronic Problems): Chronic Problems (Last Reviewed 05/15/17 @ 14:12 by Deedee Carlos) Old myocardial infarction (Chronic) Inferior NH, anterior NH 07/05 longterm use of drug (Chronic) Antihyperlipidemic Family history of hypertension (Chronic) Other secondary pulmonary hypertension (Chronic) Subendocardial ischemia (Chronic) Type II diabetes mellitus (Chronic) Hyperlipidemia associated with type 2 diabetes mellitus (Chronic) Hypertension (Chronic) S/P PTCA (percutaneous transluminal coronary angioplasty) (Chronic) Stents X 5, 03/03 [facility], PTCA with stenting to mid AND distal RCA 07/05, PTCA of proximial LAD 07/05 HLD (hyperlipidemia) (Chronic) Diabetes mellitus (Chronic) - Past Surgical History Surgical History: angioplasty, - - Coronary artery stent placement 7, finger amputations right hand - Social History Smoking Status: Never smoker - Family History Maternal Family History: Family History (Last Updated 05/21/17 @ 09:02 by Maggie Schmid) Mother Breast cancer Father Colon cancer Other Family history of hypertension History Items: Heart Disease Paternal Family History: Family History (Last Updated 05/21/17 @ 09:02 by Maggie Schmid) Mother Breast cancer Father Colon cancer Other Family history of hypertension History Items: Cancer Review of Systems Constitutional: Denies: Chills, Fever, Weight Change HEENT: Denies: Head Aches, Sinus Congestion, Sinus Drainage Cardiovascular: Denies: Chest Pain, Palpitations Respiratory: Denies: Cough, Shortness of breath at rest, Sputum production Gastrointestinal: Denies: Abdominal Pain, Nausea, Vomiting Genitourinary: Denies: Dysuria Musculoskeletal: Denies: Joint Pain, Joint Tenderness Skin: Denies: Rash, Wounds Neurological: Denies: Numbness, Tingling, Focal weakness Psychiatric: Denies: Anxiety, Depression, Homicidal Ideations, Suicidal Ideations Hematologic/ Lymphatic: Denies: Easy Bruising, Easy Bleeding Patient Problems: Active and Suspected Problems (Last Reviewed 05/15/17 @ 14:12 by Deedee Carlos) ESRD (end stage renal disease) (Acute) ESRD (end stage renal disease) on dialysis (Acute) - Physical Exam General: Alert, Oriented x3, Cooperative HEENT: Atraumatic, PERRLA, EOMI, Normocephalic Neck: Supple, No JVD, Negative Carotid Bruits Lungs: Clear to auscultation, Normal air movement Cardiovascular: Regular rate, No murmurs Abdomen: Bowel Sounds Present, Soft, Non Tender Extremities: No edema, Capillary Refill Less than 3 Seconds Skin: No rashes, No breakdown Musculoskeletal: No Tenderness to Palpation of Joints or Extremities Neurological: Cranial nerves II-XII grossly intact Psych/Mental Status: Normal Affect, Appropriate Vital Signs Temp Pulse Resp BP Pulse Ox 98.3 F 82 29 H 130/71 H 89 05/21/17 01:00 05/21/17 08:00 05/21/17 06:00 05/21/17 06:00 05/21/17 06:00 Oxygen Delivery Method Room Air Weight: 78.1 kg Body Mass Index (BMI) 26.5 Finger Stick Blood Glucose 123 Intake and Output for Last 24 Hours Intake Total 120 / 120 960 / 960 Output Total 600 / 600 Balance 120 / 120 360 / 360 Laboratory Tests Past 24 Hrs WBC RBC Hgb Hct MCV MCH MCHC RDW RDW Differential Plt Count MPV Activated Clotting Time 180 H 213 H WBC 7.6 RBC 3.10 L Hgb 9.9 L Assessment/Plan Active and Suspected Problems (Last Reviewed 05/15/17 @ 14:12 by Deedee Carlos) ESRD (end stage renal disease) (Acute) ESRD (end stage renal disease) on dialysis (Acute) ESRD. HD today. seen on dialysis. see orders and flowsheets. BP is 135/45. Access is RIJ TDC. UF 1 L as tolerated. he is close to EDW CAD s/p stenting. no complaints dc today after HD 05/21/17 1152 <Electronically signed by Esvin Scott MD> Date Esvin Scott MD Cosigner Signature (if applicable): Date CC: Saroj Luna MD; Charles Scott M.D.; Sean Medina MD Signed DISCHARGE INSTRUCTION Observed: 05/21/2017 Status: F Source: [place] 7:36 AM [facility] REPOSITORY [facility] Medical Records Department [address] [place] [address] Instructions for Home/Discharge Instructions 05/21/17 0729 MR#: [id number] Acct: [id number] Name: PAXTON CRUZ Jr. Rep #: [id number] : 1945 71 From: Sean Ferguson CARE PROGRAM DIRECTOR-C PCP: Sean Medina MD Status: REG SDC Discharge Diet: Low fat/ Low Cholesterol Discharge Activity: Return to Normal Activity May shower in (days): 1 May resume sexual activity in: 1-2 weeks Lifting Restrictions: Do not lift anything greater than 10 pounds for 3 days Call your doctor if your incision/area has: Continuous Slow Oozing, Sudden Increased Bleeding, Increased Pain/ Swelling, Increased Redness, Foul Smelling Discharge, Swelling at the incision site Call your doctor if you observe: Fever of 101 or Higher, Shortness of breath, Chest pain Remove Dressing in (days):: 1 Cleanse incision/area with: Soap AND Water Additional Instructions: You will be on Plavix for at least one year. If anyone asks you to stop this medication, please contact the [facility] first. You will remain on aspirin for life. You are scheduled to see Sean Lynne, Nurse Practitioner, in the [facility] office on June 30, 2017 at 9:30 AM to evaluate how you are doing. You may receive a phone call for cardiac rehab before that time. If you have any concerns, please call our office at [phone] Allergies/Adverse Reactions: Allergies codeine Allergy (Verified 05/20/17 09:59) Itching Medications to take at Discharge carvedilol 12.5 mg tablet 12.5 mg PO BID #60 tab 04/27/17 clopidogrel 75 mg tablet 75 mg PO QDAY 04/27/17 isosorbide mononitrate ER 120 mg tablet,extended release 24 hr 120 mg PO DAILY 04/27/17 pravastatin 80 mg tablet 80 mg PO QHS #30 tab 04/27/17 aspirin 81 mg chewable tablet 81 mg PO QDAY tab 04/28/17 Guaifen/Phenyleph/Acetaminophn [Severe Sinus Congest-Pain Cplt] 1 each PO Q6H PRN PRN 05/19/17 Ensure Enlive 120 ml PO 4X/DAY liquid 05/21/17 Primary Care Physician: Sean Medina MD [Primary Care Provider] - Please Follow Up With: Sean Ferguson, [facility] - Office follow-up When: June 30, 2017 at 9:30 AM Cardiac Rehabilitation Info Cardiac Rehabilitation Program Information: Cardiac Rehabilitation is important for patients like you who are recovering from a heart problem. Cardiac rehabilitation programs are recognized as integral to the continued care of the patient with coronary heart disease. The cardiac rehabilitation program is designed to optimize a patient's physical, psychological, and social functioning. Health care program director work in cardiac rehabilitation programs and assist you with getting the treatments you need to get stronger and healthier - like exercise, healthy eating habits, and medications. Cardiac rehabilitation has been show to help people with heart problems live longer and have better life enjoyment than people who do not go to cardiac rehabilitation. Please contact the Cardiac Rehabilitation Program at [facility] at in two weeks if you have not heard from them. 05/21/17 0736 <Electronically signed by Sean SPENCER> Date Sean SPENCER CC: Charles Scott M.D.; Sean Medina MD CBC-COMPLETE BLOOD CNT Collected: 05/21/2017 Status: F Source: [place] NO DIFF 4:00 AM [facility] REPOSITORY Order Comment: Comments: 6H post procedure AND Q6H x 4 TYPE CODE TESTS RESULT OUT OF RANGE REFERENCE UNITS LAB L100.1000 4.4-11.0 K/mm3 Normal WBC 7.6 LAB L100.1200 4.6-6.2 M/mm3 Low RBC 3.10 LAB L100.1300 13.0-16.5 g/dl Low HGB 9.9 LAB L100.1400 40-54 % Low HCT 29.6 LAB L100.1500 80-94 fL High MCV 95.5 LAB L100.1600 27.0-32.0 pg Normal MCH 31.9 LAB L100.1700 32-36 g/gl Normal MCHC 33.4 LAB L100.1810 11.6-14.6 % High RDW CV 15.5 LAB L100.1820 35.1-43.9 fl High RDW SD 52.0 LAB L100.1900 150-450 K/mm3 Normal PLT 219 LAB L100.2000 6.2-12.0 fl Normal MPV 10.2 Performed By: #### L100.0500 #### [facility] [address] [place], [place], [address] CPK TOTAL, CREATINE Collected: 05/21/2017 Status: F Source: [place] 4:00 AM [facility] REPOSITORY TYPE CODE TESTS RESULT OUT OF RANGE REFERENCE UNITS LAB L501.3620 39-308 U/L Normal CPK TOTAL 44 Performed By: #### L501.3620 #### [facility] [address] [place], [place], [id number] BASIC METABOLIC Collected: 05/21/2017 Status: F Source: [place] PROFILE ([facility]) 4:00 AM [facility] REPOSITORY TYPE CODE TESTS RESULT OUT OF RANGE REFERENCE UNITS LAB L501.0100 74-106 mg/dL High GLU 172 Result Comment: Fasting Glucose result greater than or equal to 126 mg/dL suggests DIABETES MELLITUS per A.D.A. criteria. Please note revised GLUCOSE reference range effective 2017. LAB L501.1000 7-18 mg/dL High BUN 20 LAB L501.1100 0.70-1.30 mg/dL High CREAT,SERUM 4.12 Result Comment: The validity of the calculated GFR AND GFRAA in patients over 70 years has not been determined. Clinical correlation is essential. LAB L501.1110 >60 mL/min Low EST GFR 15 Result Comment: Non- GFR Calc LAB L501.1115 >60 mL/min Low EST GFR - AA 18 Result Comment: GFR Calc LAB L501.1255 ml/min Normal Estimated CRCL 14.93 LAB L501.1300 10-20 RATIO Low BUN/CRE 4.9 LAB L501.2200 8.5-10 mg/dL Low .1 CA 7.9 LAB L501.5300 136-14 mmol/L Normal 5 NA 137 LAB L501.5600 3.5-5. mmol/L Normal 1 K 4.0 LAB L501.5900 98-107 mmol/L Normal CL 102 LAB L501.6100 21.0-3 mmol/L Normal 2.0 CO2 27.0 LAB L501.6200 5-15 Normal GAP 8 Performed By: #### L500.2500, L500.4100 #### [facility] [place], [address] LIPID PROFILE Collected: 05/21/2017 Status: F Source: [place] 4:00 AM [facility] REPOSITORY TYPE CODE TESTS RESULT OUT OF RANGE REFERENCE UNITS LAB L501.4900 200 mg/dL Normal CHOL 98 Result Comment: <200 mg/dL Desirable 200-240 mg/dL Borderline >240 mg/dL High Risk LAB L501.5000 mg/dL Normal TRIG 89 Result Comment: The drugs N-Acetylcysteine and Metamizole may falsely depress this assay. Serum Triglycerides Reference Interval Normal <150 mg/dL Borderline high 150 - 199 mg/dL High 200 - 499 mg/dL Very High > or = 500 mg/dL LAB L501.6400 mg/dL Low HDL 37 Result Comment: The drugs N-Acetylcysteine and Metamizole may falsely depress this assay. Reference Range HDL <40 mg/dL Low HDL Cholesterol HDL >or= 60 mg/dL High HDL Cholesterol LAB L501.6500 0-130 mg/dL Normal LDL 43 LAB L501.6600 5-40 mg/dL Normal VLDL 18 Performed By: #### L500.2500, L500.4100 #### [facility] [address] [facility] [place], [place], [id number] CBC-COMPLETE BLOOD CNT Collected: 05/20/2017 Status: F Source: [place] NO DIFF 9:15 PM [facility] REPOSITORY Order Comment: Comments: 6H post procedure AND Q6H x 4 TYPE CODE TESTS RESULT OUT OF RANGE REFERENCE UNITS LAB L100.1000 4.4-11.0 K/mm3 Normal WBC 7.6 LAB L100.1200 4.6-6.2 M/mm3 Low RBC 3.24 LAB L100.1300 13.0-16.5 g/dl Low HGB 9.9 LAB L100.1400 40-54 % Low HCT 30.4 LAB L100.1500 80-94 fL Normal MCV 93.8 LAB L100.1600 27.0-32.0 pg Normal MCH 30.6 LAB L100.1700 32-36 g/gl Normal MCHC 32.6 LAB L100.1810 11.6-14.6 % High RDW CV 15.8 LAB L100.1820 35.1-43.9 fl High RDW SD 54.4 LAB L100.1900 150-450 K/mm3 Normal PLT 241 LAB L100.2000 6.2-12.0 fl Normal MPV 10.0 Performed By: #### L100.0500 #### [facility] [address] [facility] [place], [place], [id number] CPK TOTAL, CREATINE Collected: 05/20/2017 Status: F Source: [place] 9:15 PM [facility] REPOSITORY TYPE CODE TESTS RESULT OUT OF RANGE REFERENCE UNITS LAB L501.3620 39-308 U/L Normal CPK TOTAL 47 Performed By: #### L501.3620 #### [facility] [address] [facility] [place], [place], [id number] ACT ACTIVATED CLOTTING Collected: 05/20/2017 Status: F Source: [place] TIME 4:37 PM [facility] REPOSITORY TYPE CODE TESTS RESULT OUT OF RANGE REFERENCE UNITS LAB L9100.0100 74-137 sec High ACTk CLOT 169 TIME Performed By: #### L9100.0100 #### [facility] Point of Care [address] [facility] [place], [place] [address] CBC-COMPLETE BLOOD CNT Collected: 05/20/2017 Status: F Source: [place] NO DIFF 3:00 PM [facility] REPOSITORY Order Comment: Comments: 6H post procedure AND Q6H x 4 TYPE CODE TESTS RESULT OUT OF RANGE REFERENCE UNITS LAB L100.1000 4.4-11.0 K/mm3 Normal WBC 7.9 LAB L100.1200 4.6-6.2 M/mm3 Low RBC 3.23 LAB L100.1300 13.0-16.5 g/dl Low HGB 10.1 LAB L100.1400 40-54 % Low HCT 30.3 LAB L100.1500 80-94 fL Normal MCV 93.8 LAB L100.1600 27.0-32.0 pg Normal MCH 31.3 LAB L100.1700 32-36 g/gl Normal MCHC 33.3 LAB L100.1810 11.6-14.6 % High RDW CV 15.5 LAB L100.1820 35.1-43.9 fl High RDW SD 53.1 LAB L100.1900 150-450 K/mm3 Normal PLT 243 LAB L100.2000 6.2-12.0 fl Normal MPV 10.4 Performed By: #### L100.0500 #### [facility] [address] [facility] [place], [place], [address] CPK TOTAL, CREATINE Collected: 05/20/2017 Status: F Source: [place] 3:00 PM [facility] REPOSITORY TYPE CODE TESTS RESULT OUT OF RANGE REFERENCE UNITS LAB L501.3620 39-308 U/L Normal CPK TOTAL 54 Performed By: #### L501.3620 #### [facility] [address] [place], [address] M R STAPH AUREUS Collected: 05/20/2017 Status: F Source: [place] DNA BY PCR 2:45 PM [facility] REPOSITORY TYPE CODE TESTS RESULT OUT OF RANGE REFERENCE UNITS LAB L8200.1100 Negative Normal MRSA Negative RESULT Performed By: #### L8200.1000 #### [facility] [address] [place], [address] ACT ACTIVATED CLOTTING Collected: 05/20/2017 Status: F Source: [place] TIME 2:18 PM [facility] REPOSITORY TYPE CODE TESTS RESULT OUT OF RANGE REFERENCE UNITS LAB L9100.0100 74-137 sec High ACTk CLOT 213 TIME Performed By: #### L9100.0100 #### [facility] Point of Care [address] [place] [address] ACT ACTIVATED CLOTTING Collected: 05/20/2017 Status: F Source: [place] TIME 1:41 PM [facility] REPOSITORY TYPE CODE TESTS RESULT OUT OF RANGE REFERENCE UNITS LAB L9100.0100 74-137 sec High ACTk CLOT 180 TIME Performed By: #### L9100.0100 #### [facility] Point of Care [address] [place] [address] BEDSIDE GLUCOSE Collected: 05/20/2017 Status: F Source: [place] 10:20 AM [facility] REPOSITORY TYPE CODE TESTS RESULT OUT OF REFERENCE UNITS RANGE LAB L501.080 70-110 mg/dL High BEDSIDE GLU 134 Result Comment: MANAGEMENT OF PATIENT CARE PER NURSING PROTOCOL Performed By: #### L501.080 #### [facility] Point of Care [address] [place] [address] SURGERY VISIT REPORT Observed: 05/15/2017 Status: F Source: [place] 2:51 PM [facility] REPOSITORY [facility] [address] [facility] [facility] [address] [place] [address] OFFICE VISIT Date of Service: 05/15/17 MR#: [id number] Acct: [id number] Name: PAXTON CRUZ Jr. 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 Is patient in pain?: No Allergies codeine Allergy (Verified 05/15/17 14:10) Itching Medications carvedilol 12.5 mg tablet 12.5 mg PO BID #60 tab 04/27/17 [Rx Confirmed 05/15/17] clopidogrel 75 mg tablet 75 mg PO QDAY 04/27/17 [History Confirmed 05/15/17] isosorbide mononitrate ER 120 mg tablet,extended release 24 hr 120 mg PO DAILY PRN 04/27/17 [History Confirmed 05/15/17] pravastatin 80 mg tablet 80 mg PO QHS #30 tab 04/27/17 [Rx Confirmed 05/15/17] aspirin 81 mg chewable tablet 81 mg PO QDAY tab 04/28/17 [History Confirmed 05/15/17] [facility] Medical History Old myocardial infarction (Chronic) longterm use of drug (Chronic) Family history of hypertension (Chronic) Other secondary pulmonary hypertension (Chronic) Subendocardial ischemia (Chronic) Ischemic cardiomyopathy (Acute) Nonrheumatic mitral valve regurgitation (Acute) Rheumatic tricuspid insufficiency (Acute) Paroxysmal atrial fibrillation (Acute) Atherosclerotic heart disease of [place] coronary artery without angina pectoris (Acute) Type II diabetes mellitus (Chronic) Hyperlipidemia associated with type 2 diabetes mellitus (Chronic) Hypertension (Chronic) Uncontrollable nausea and vomiting (Acute) Left flank pain (Acute) Non-STEMI (non-ST elevated myocardial infarction) (Acute) Unstable angina (Acute) HLD (hyperlipidemia) (Chronic) Diabetes mellitus (Chronic) Acute on chronic renal insufficiency (Acute) Hyperkalemia (Acute) Coronary artery disease (Inactive) Pneumonia (Inactive) Surgical History S/P PTCA (percutaneous transluminal coronary angioplasty) (Chronic) Family History Mother Breast cancer Father Colon cancer Social History Smoking Status: Never smoker second hand exposure: No alcohol intake: never substance use type: does not use caffeine: No what type of physical activity do you participate in: none frequency: does not exercise seatbelt use: always HPI HPI HPI: PAXTON CRUZ, is a 71 M who presents to the office today for who presents in referral for placement of hemodialysis fistula. I actually have previously interacted with this gentleman when he was urgently hospital lysed. On December 24, 2016 at the [facility] because of a malfunctioning left internal cut jugular tunneled dialysis catheters I placed right internal jugular tunneled dialysis catheters I remove those on the left. Repetitively at dialysis the patient has been requested to see me for consideration of the fistula but up until now he is declined. At this point however he would like to proceed so that he can resume showering. On April 23, 2017 he had bilateral upper extremity vein mapping. This demonstrates borderline cephalic veins bilaterally. The patient is ambidextrous. He does most of his fine writing with his right hand. He claims that he shoot spell when he shoots rifle with his left hand ROS General General: Yes weight change and fatigue; no appetite, colon cancer, breast cancer or weakness HEENT HEENT: No difficulty swallowing, eye injury, eye surgery, swollen glands or hoarseness Endo Endocrine: Yes diabetes mellitus; no thyroid disease, thyroid cancer, Hair loss, heat intolerance or cold intolerance Skin Skin: No rash or changing moles Musc Musculoskeletal: Yes arthritis; no back problems, rheumatoid arthritis, gout or joint pain Cardio Cardiovascular: Yes heart disease, high blood pressure, heart attack and heart stent; no murmur, pacemaker, atrial fibrillation, palpitations, shortness of breat with exertion or chest pain Psych Psychiatric: Yes depression and anxiety; no hearing voices Resp Respiratory: Yes shortness of breath, No sleep apnea, Yes cough, No COPD, No asthma, No emphysema, No wheezing Gastro Gastrointestinal: No abdominal pain, No nausea or vomiting, Yes diarrhea, Yes constipation, No blood in stool, No acid reflux, No hemorrhoids, No ulcers, No gallbladder problem, No black,tarry stools Mario Hematologic: Yes blood thinners, No blood disorders, No bleeding, No anemia, No blood clots Neuro Neurologic: No system reviewed and no additional complaints, except as docu, No as per HPI, No abnormal walking, No abnormal hearing, No abnormal movements, No abnormal speech, No behavioral changes, No burning sensations, No confusion, No seizure-like activity, No unsteadiness, No dizziness, No localized weakness, No frequent falls, No headache(s), No lack of coordination, No loss of vision, No memory loss, No numbness, No other visual disturbances, No radiating pain, No restless legs, No sensory deficit, No fainting, No tingling, No tremor(s), No weakness, No other Exam Const General: cooperative, no acute distress [facility] Head: normal to inspection Eyes General: appearance normal, both eyes and all related structures Resp Effort AND Inspection: normal respiratory effort Auscultation: clear to auscultation bilaterally Cardio Rate: regular rate Rhythm: regular rhythm Heart Sounds: no murmurs GI Palpation: soft, no hepatosplenomegaly Auscultation: normal bowel sounds Neuro Cranial Nerves: CN's II-XI intact bilaterally Extrem General: no calf tenderness Other: I personally inspected his left upper extremity. The cephalic vein appears to be adequate approximately 4 cm proximal to the wrist. It is unfortunately rather deep. The left radial artery is 3+. Karel test suggests ulnar flow although weaker than the radial artery Psych Affect: normal affect Assessment AND Plan 1. Acute on chronic renal insufficiency N28.9; N18.9 Plan After personally reviewing and performed the patient's left upper extremity ultrasound inspection I am proposing for him a transposed left forearm cephalic vein to radial artery treating this fistula creation. The vein is slightly small closer to the risk but approximately 4-5 cm more proximally it is of adequate caliber. It is unfortunately more deeply placed in that location as it swings over the more volar medial aspect of the forearm. I believe that a transposition in 1 stage could be performed. I have discussed with him the technique, benefits, risks, alternatives. At the completion of the patient's office appointment it was then made aware that was that he had just completed a stress test today. He was being notified that he was going to require cardiac catheterization with stent placement. This will mean that we will need to proceed in the future with fistula creation leaving the patient on his anticoagulation. The risk of his tunneled hemodialysis catheters placed him at increased risk and he would not be able to tolerate those for 6-12 months while waiting for anticoagulation to be able to be ceased. We will schedule later in May allowing him time hopefully to recover from his cardiac procedure. The patient is very hopeful that in the near future he will be able to have his tunneled catheter was removed so that he can resume showering. I very much appreciate the kind opportunity of assisting with his surgical care Kristian Gunn M.D., F.A.C.S. CC: Dr Medina,,?Dr Scott Coding Level of Care Code Off vis,est,level 3 Diagnoses Acute on chronic renal insufficiency N28.9; N18.9 05/15/17 1451 <Electronically signed by Kristian Gunn MD> Date Kristian Gunn MD Cosigner Signature: Date (if applicable) CC: Trevor Bernal MD; Charles Scott M.D.; Sean Medina MD STRESS REPORT Observed: 05/15/2017 Status: F Source: [place] 10:12 AM [facility] Cardiovascular Services [address] [place] [address] MR#: [id number] Acct: [id number] Name: PAXTON CRUZ Jr. Rep #: [id number] : 1945 71 From: Juan Dan MD Primary Care: Sean Medina MD Status: REG CLI Ordering Dr: Sex: Luca Santamaria Stress Test Report Date: 05/15/2017 Procedure: Pharmacologic stress nuclear imaging study Indications: Chest pain; shortness of breath; CAD; NH; status post PCI Consent: Per the patient Procedure: The patient underwent pharmacologic (Regadenoson) evaluation with a peak heart rate of 101 per minute (68% predicted maximal heart rate) and a peak blood pressure of 142/76 mmHg. The baseline ECG demonstrated normal sinus rhythm; right bundle branch block pattern; nonspecific ST and T-wave abnormality. The peak pharmacologic ECG demonstrated no obvious ECG changes. There were no cardiac dysrhythmias pretest, during pharmacologic infusion, or recovery. There was no complaint of chest discomfort during pharmacologic infusion or recovery. The examination was discontinued secondary to completion of protocol. Impression: 1. Pharmacologic (Regadenoson) evaluation 2. Peak pharmacologic ECG with with continued right bundle branch block pattern with nonspecific ST and T-wave abnormality with no obvious ECG changes. 3. No cardiac dysrhythmias pretest, during pharmacologic infusion, or recovery 4. Nuclear images pending Myocardial perfusion imaging study: Technique: The patient was injected with 11.1 millicuries of technetium 99m Cardiolite and subsequently rest SPECT Cardiolite nuclear imaging was obtained in the horizontal long, vertical long, and short axis views. The patient underwent pharmacologic (Regadenoson) evaluation with a peak heart rate of 101 per minute (68% predicted maximal heart rate) and a peak blood pressure of 42/76 mmHg. the patient was injected with 33.8 millicuries of technetium 99m Cardiolite and subsequently stress SPECT Cardiolite nuclear imaging was obtained in the horizontal long, vertical long, and short axis views. A gated Cardiolite study at peak stress was obtained. Interpretation: Rest and stress SPECT Cardiolite nuclear imaging status post realignment, normalization, and attenuation correction demonstrate status post stress and area of diminished tracer uptake in portions of the mid inferolateral segments. There is diminished end-systolic thickening and brightening in the aforementioned areas. The gated Cardiolite study demonstrates diminished myocardial thickening and end were wall motion especially in the aforementioned areas. The reported LVEF is 30%. Impression: 1. Rest and stress SPECT currently nuclear imaging demonstrate myocardial perfusion changes appearing compatible with an area of stress-induced myocardial ischemia involving portions of the mid inferolateral segments. 2. The gated Cardiolite study reports an LVEF of 30%. This note was generated with Up[employer]ooation software. It may contain incorrect words, spelling, and punctuation that were not noted in checking the note before signing. 05/15/17 1012 <Electronically signed by Juan Dan MD> Date Juan Dan MD CC: Sean Medina MD; Juan Dan MD Date Dictated: 05/15/17 1007 Date Transcribed: 05/15/171006 Artist Representative: PM Signed VENOUS BLOOD GAS Collected: 05/01/2017 Status: F Source: [place] 10:19 AM [facility] REPOSITORY TYPE CODE TESTS RESULT OUT OF RANGE REFERENCE UNITS LAB L9000.9990 Normal BLD GAS ARIANA TYPE LAB L9002.1110 7.32-7.42 High VBGpH - 7.45 I-STAT LAB L9002.1212 41-51 mmHg Normal VBG pCO2 41.5 - ISTA LAB L9002.1310 25-40 mmHg Normal VBG PO2 25 I-STAT LAB L9002.2300 22-26 mmol/L High VBG HCO3 29 ISTAT LAB L9002.2400 -1.0-3.5 mmol/L High VBG BE 4 ISTAT LAB L9002.2410 50-70 % Low VBG SO2 47 ISTAT LAB L9002.2415 23-33 mmol/L Normal VBG O2 CT 30 ISTAT Performed By: #### L9000.0810 #### [facility] Point of Care [address] [place] [id number] VENOUS BLOOD GAS Collected: 05/01/2017 Status: F Source: AD[place] 10:06 AM [facility] REPOSITORY TYPE CODE TESTS RESULT OUT OF RANGE REFERENCE UNITS LAB L9000.9990 Normal BLD GAS ARIANA TYPE LAB L9002.1110 7.32-7.42 High VBGpH - 7.45 I-STAT LAB L9002.1212 41-51 mmHg Low VBG pCO2 39.9 - ISTA LAB L9002.1310 25-40 mmHg Normal VBG PO2 25 I-STAT LAB L9002.2300 22-26 mmol/L High VBG HCO3 27 ISTAT LAB L9002.2400 -1.0-3.5 mmol/L Normal VBG BE 3 ISTAT LAB L9002.2410 50-70 % Low VBG SO2 49 ISTAT LAB L9002.2415 23-33 mmol/L Normal VBG O2 CT 29 ISTAT Performed By: #### L9000.0810 #### [facility] Point of Care [address] [place] [address] VENOUS BLOOD GAS Collected: 05/01/2017 Status: F Source: ADY 10:00 AM [facility] REPOSITORY TYPE CODE TESTS RESULT OUT OF RANGE REFERENCE UNITS LAB L9000.9990 Normal BLD GAS ARIANA TYPE LAB L9002.1110 7.32-7.42 Normal VBGpH - 7.41 I-STAT LAB L9002.1212 41-51 mmHg Normal VBG pCO2 43.3 - ISTA LAB L9002.1310 25-40 mmHg Normal VBG PO2 32 I-STAT LAB L9002.2300 22-26 mmol/L High VBG HCO3 28 ISTAT LAB L9002.2400 -1.0-3.5 mmol/L Normal VBG BE 3 ISTAT LAB L9002.2410 50-70 % Normal VBG SO2 63 ISTAT LAB L9002.2415 23-33 mmol/L Normal VBG O2 CT 29 ISTAT Performed By: #### L9000.0810 #### [facility] Point of Care [address] [place] [id number] VENOUS BLOOD GAS Collected: 05/01/2017 Status: F Source: ADY 9:56 AM [facility] REPOSITORY TYPE CODE TESTS RESULT OUT OF RANGE REFERENCE UNITS LAB L9000.9990 Normal BLD GAS ARIANA TYPE LAB L9002.1110 7.32-7.42 High VBGpH - 7.47 I-STAT LAB L9002.1212 41-51 mmHg Low VBG pCO2 38.8 - ISTA LAB L9002.1310 25-40 mmHg Normal VBG PO2 28 I-STAT LAB L9002.2300 22-26 mmol/L High VBG HCO3 28 ISTAT LAB L9002.2400 -1.0-3.5 mmol/L High VBG BE 4 ISTAT LAB L9002.2410 50-70 % Normal VBG SO2 56 ISTAT LAB L9002.2415 23-33 mmol/L Normal VBG O2 CT 29 ISTAT Performed By: #### L9000.0810 #### [facility] Point of Care [address] [place] [address] [place] [address] BLOOD GASES BY CPS Collected: 05/01/2017 Status: F Source: ADY 9:48 AM [facility] REPOSITORY TYPE CODE TESTS RESULT OUT OF RANGE REFERENCE UNITS LAB L9000.9990 Normal BLD GAS ART TYPE LAB L9001.1110 7.35-7.45 High pH - 7.47 I-STAT LAB L9001.1210 35-45 mmHg Normal pCO2 - 37.4 ISTAT LAB L9001.1310 75-100 mmHG Low PO2 57 I-STAT LAB L9001.2300 22-26 mmol/L High HCO3 27.1 ISTAT LAB L9001.2400 -2 to +2 mmol/L High BE ISTAT 3 LAB L9001.2415 mmol/L Normal TOTAL CO2 28 ISTAT LAB L9001.2425 95-99 % Low SO2 ISTAT 91 Performed By: #### L9000.0800 #### [facility] Point of Care [address] [place] [address] CARDIOLOGY VISIT Observed: 04/27/2017 Status: F Source: ADY REPORT 4:18 PM [facility] REPOSITORY [facility] [address] [place] [address] OFFICE VISIT Date of Service: 04/27/17 MR#: [id number] Acct: [id number] Name: PAXTON CRUZ JrVanessa Rep #: [id number] : 1945 Provider: Juan Dan MD Age/Sex: 71/M Location: [facility] Status: Signed HPI HPI Details: PAXTON CRUZ, is a 71 M who presents to the office today for for outpatient cardiovascular follow-up of his history of underlying CAD, status post multivessel PCI, ischemic mediated cardiomyopathy, superimposed upon a history of paroxysmal atrial fibrillation, hyperlipidemia, hypertension, diabetes mellitus, and chronic renal insufficiency on chronic hemodialysis (Thursday, , and Thursday). He states that he has been feeling worse over time. He has had intermittent chest discomforts. He has had progressive shortness of breath and dyspnea. He describes orthopnea. He denies any near-syncope or syncope. He states he originally attributed his symptoms to a pneumonia requiring hospitalization and therapy. However he states despite that he still has symptoms especially with respect to dyspnea and orthopnea. Thus there is been a concern as to whether this could be cardiovascular mediated. He did undergo a recent transthoracic echocardiogram. This was performed on 04/23/2017. His overall left ventricular systolic function was diminished with an estimated LVEF of 20%. He had mild left atrial enlargement. He had mild to moderate MR/TR. His estimated RV systolic pressure was 55 mmHg compatible with pulmonary hypertension. This was a change compared to previous transthoracic echocardiogram from 11/20/2016 that had his estimated LVEF listed at approximately 35%. As you recall he had a exercise tolerance test/imaging study performed on 07/06/2012. At that time he was noted to have evidence of stress-induced myocardial ischemia involving portions of the mid to distal inferior segments although shifting soft tissue attenuation/artifact cannot be excluded. His gated LVEF was 60%. He has undergone evaluation with diagnostic cardiac catheterization and PCI in the past. On 06/28/[address] [facility] in [place], [place] he underwent PTCA/stent of the mid RCA. On 06/27/2014 at the same institution he underwent PTCA/stent in the proximal LAD. On 03/18/2012 at the same institution he underwent diagnostic cardiac catheterization which at that time stated his left main had mild disease, the LAD had moderate diffuse disease in the proximal segment with focal 70% stenosis in the mid LAD. The LAD was diffusely calcified. In the apical areas were 90% stenosis. The LCx was noted to have 70% stenosis in the distal portion. The RCA was occluded. Intake Vital Signs04/27/17 Height 5 ft 7 in 04/27/17 Weight: 172 lb 9 oz 04/27/17 Body Mass Index (BMI) 27.0 04/27/17 Blood Pressure 138/92 Intake Visit Reasons: update H AND P Allergies codeine Allergy (Verified 04/27/17 13:32) Itching Medications Aspirin [Aspirin, Baby] 81 mg PO DAILY@0800 06/07/15 [History Confirmed 04/27/17] carvedilol 12.5 mg tablet 12.5 mg PO BID #60 tab 04/27/17 [Rx Confirmed 04/27/17] clopidogrel 75 mg tablet 75 mg PO QDAY 04/27/17 [History Confirmed 04/27/17] isosorbide mononitrate ER 120 mg tablet,extended release 24 hr 120 mg PO DAILY PRN 04/27/17 [History Confirmed 04/27/17] etnvwwfsczvmp-dltnjksdfjqyy-lydshjlewby 5 mg-325 mg-200 mg tablet 2 tab PO Q6H 04/27/17 [History Confirmed 04/27/17] pravastatin 80 mg tablet 80 mg PO QHS #30 tab 04/27/17 [Rx Confirmed 04/27/17] [facility] Medical History Ischemic cardiomyopathy (Acute) Nonrheumatic mitral valve regurgitation (Acute) Rheumatic tricuspid insufficiency (Acute) Paroxysmal atrial fibrillation (Acute) Atherosclerotic heart disease of [place] coronary artery without angina pectoris (Acute) Type II diabetes mellitus (Chronic) Hyperlipidemia associated with type 2 diabetes mellitus (Chronic) Hypertension (Chronic) Uncontrollable nausea and vomiting (Acute) Left flank pain (Acute) Non-STEMI (non-ST elevated myocardial infarction) (Acute) Unstable angina (Acute) HLD (hyperlipidemia) (Chronic) Diabetes mellitus (Chronic) Acute on chronic renal insufficiency (Acute) Hyperkalemia (Acute) Coronary artery disease (Inactive) Pneumonia (Inactive) Surgical History S/P PTCA (percutaneous transluminal coronary angioplasty) (Chronic) Social History Smoking Status: Never smoker ROS Const Const: Positive for fatigue (no energy) and weakness (bilat LE AND UE); negative for weight gain, weight loss, frequent falls or excessive sweating Eyes Eyes: Negative for change in vision, blurry vision or transient loss of vision ENT ENT: Positive for dizziness (when patient SOB becomes dizzy/lightheaded), Positive for balance problems (if turns too quickly while ambulating will lose balance) Cardio Chest Pain: No Palpitations: Positive for No Edema: Bilateral (slight) Muscle aches with walking: None Resp Respiratory: Negative for SOB with activity or SOB at rest Additional Details: Patient continues with cough. Patient states that he had pneumonia in November. GI GI: Negative vomiting or vomiting blood/hematemesis : Negative for hematuria Musc Musc: Positive for balance problems (if turns too quickly while ambulating will lose balance) and muscle aches/ myalgia (cramps in bilat LE at the end of dialysis); negative for muscle weakness or joint pain Skin Skin: Negative non-healing lesions or rash Neuro Neuro: Positive for weakness (bilat LE AND UE), Negative for blurry vision, Positive for dizziness (when patient SOB becomes dizzy/lightheaded), Negative for lightheadedness, Negative for frequent falls, Negative for orthostatic symptoms Mario Hematologic/Lymphatic: Negative for easy bleeding Endo Endo: Positive for fatigue (no energy); negative for excessive sweating Psych Psych: Negative for anxiety or depression Allergy Allergy/Immunology: Negative for hives, Negative for rash Cardiology Exam Const Appearance: cooperative, healthy appearing, comfortable, no acute distress, well developed and well groomed Nutritional Appearance: average body habitus Orientation: alert, awake and oriented x3 Head Head: normal to inspection, normocephalic and atraumatic Ears: hearing grossly normal bilaterally Nose: external nose normal Face and Sinus: face symmetric Mouth: oral mucosae normal Teeth and gingiva: fair dentition Eyes General: appearance normal, both eyes and all related structures Eyelids: eyelids normal Conjunctivae: conjunctivae normal Pupils: PERRL EOM: EOM intact bilaterally Neck Neck: normal visual inspection and full ROM Carotids: normal carotid upstroke +JVD Chest Chest inspection: normal inspection of the chest and symmetric chest movement Auscultation: Bilateral: Clear to Auscultation Cardio Palpation: normal PMI Rate: regular rate Rhythm: regular rhythm Heart sounds: S1 normal, S2 normal and positive S4 GI GI: normal to inspection, soft, no hepatosplenomegaly and bowel sounds present Neuro General: alert, awake and oriented x3 Skin Skin: no rashes or lesions noted Extremities Pulses: Normal: Right Femoral Pulse, Left Femoral Pulse, Right Radial Pulse, Left Radial Pulse Bruits: Positive: Right Radial Bruit, Left Radial Bruit Lower Extremity Edema: +1: Bilateral Right 3rd and 4th digits missing. Psych Psychological: normal affect Assessment AND Plan 1. CAD (coronary artery disease) I25.10 Plan At the present time there is concern that the patient has had progression of his underlying cardiovascular disease. This could account for his symptoms and his change in his LV systolic function. Thus he has been recommended once again to undergo further evaluation with diagnostic cardiac catheterization. The procedure and risks have been discussed with him. He was agreeable to this approach at this time. In the interim he will continue medical management. This will include reinitiation of his beta-bishnu therapy with his previous carvedilol 12.5 mg twice daily dosing. Orders Orders: 2. Non-ST elevation NH (NSTEMI) I21.4 Plan He does have a history of previous non-ST segment elevation NH. He has undergone noninvasive and invasive evaluation the care in the past. Based on his ongoing issues will undergo repeat evaluation as noted above. Orders Orders: 3. S/P PTCA (percutaneous transluminal coronary angioplasty) Z98.61 Plan His previous PCI procedures are as outlined above. Again he will continue medical therapy and undergo repeat diagnostic cardiac catheterization. He knows he may require repeat catheter based or potentially surgical based revascularization therapy. Orders Orders: 4. Cardiomyopathy, ischemic I25.5 Plan He does have an underlying ischemic mediated cardio myopathy. His overall LV systolic function appears to be declined. Again there is concern that this could be related to progressive underlying CAD. Thus he will continue medical management and undergo evaluation as noted above. Orders Orders: 5. Paroxysmal atrial fibrillation I48.0 Plan He did have an ECG today. He appears to be remaining in sinus rhythm/sinus tachycardia with first-degree AV block and a right bundle branch block pattern. He is being restarted on his beta-bishnu therapy. In the interim he is continuing his antiplatelet therapy. Consideration for future anticoagulant therapy will be given based on his upcoming clinical course. 6. Hyperlipidemia, unspecified hyperlipidemia type E78.5 Plan He does have a history of hyperlipidemia. He will continue medical management and follow-up as deemed appropriate. 7. Essential hypertension I10 Plan His blood pressures been evaluated. He will continue medical management and follow-up. Hopefully the addition of his beta-bishnu therapy will also help maintain adequate blood pressure control. Orders Orders: Plan Detail Other Orders Orders: Other Medications New: Discontinued: hydrocodone-acetaminophen 5-325 mg Discontin1 tab PO Q6H PRN PRN Pain Mirella Singletary ued Reason: Pt no longer taking Additional Comments The above was discussed with the patient. He was agreeable to this approach. Thank you for allowing me to participate in the care of your patient. Please don't hesitate to call if any issues arise. This note was generated using a voice recognition system and there may be incorrect words, spelling or punctuation that were not noted when reviewing the office note prior to saving. Follow Up 6 Months (PFM (6-9 Months)) Coding Level of Care Code Off vis,est,level 5 Diagnoses CAD (coronary artery disease) I25.10 Coronary Disease-Associated Artery/Lesion type: [place] artery [place] vs. transplanted heart: [place] heart Non-ST elevation NH (NSTEMI) I21.4 S/P PTCA (percutaneous transluminal coronary angioplasty) Z98.61 Cardiomyopathy, ischemic I25.5 Paroxysmal atrial fibrillation I48.0 Hyperlipidemia, unspecified hyperlipidemia type E78.5 Hyperlipidemia type: unspecified Essential hypertension I10 Hypertension type: essential hypertension Coding Level of Care Code Off vis,est,level 5 Diagnoses CAD (coronary artery disease) I25.10 Coronary Disease-Associated Artery/Lesion type: [place] artery [place] vs. transplanted heart: [place] heart Non-ST elevation NH (NSTEMI) I21.4 S/P PTCA (percutaneous transluminal coronary angioplasty) Z98.61 Cardiomyopathy, ischemic I25.5 Paroxysmal atrial fibrillation I48.0 Hyperlipidemia, unspecified hyperlipidemia type E78.5 Hyperlipidemia type: unspecified Essential hypertension I10 Hypertension type: essential hypertension 04/27/17 1618 <Electronically signed by Juan Dan MD> Date Juan Dan MD Cosigner Signature: Date (if applicable) CC: Sean Medina MD 12 LEAD EKG PERFORMED Observed: 04/27/2017 Status: F Source: [place] [facility] 1:32 PM [facility] REPOSITORY [facility] [address] [place] [address] 12 Lead EKG performed by [facility] 04/27/17 1331 MR#: [id number] Acct: [id number] Name: PAXTON CRUZ Jr. Rep #: [id number] : 1945 71 From: Juan Dan MD Attending Dr: Juan Dan MD Status: DEP AMB Ordering Dr: Juan Dan MD Date: 04/27/17 Location: [facility] Sex: M C Admitted: [facility]/12 Lead EKG performed by [facility] ECG Report Interpretation Sinus Tachycardia -First degree A-V block Right bundle branch block. ABNORMAL Electronically signed on 04/27/2017 at 16:50 by Juan Dan 04/27/17 1652 Date Juan Dan MD CC: Sean Medina MD Date Dictated: 04/27/171330 Date Transcribed: 04/27/171330 Artist Representative: PM Signed CBC-COMPLETE BLOOD CNT Collected: 04/27/2017 Status: F Source: ADY NO DIFF 12:32 PM [facility] REPOSITORY TYPE CODE TESTS RESULT OUT OF RANGE REFERENCE UNITS LAB L100.1000 4.4-11.0 K/mm3 Normal WBC 7.3 LAB L100.1200 4.6-6.2 M/mm3 Low RBC 3.94 LAB L100.1300 13.0-16.5 g/dl Low HGB 12.1 LAB L100.1400 40-54 % Low HCT 37.9 LAB L100.1500 80-94 fL High MCV 96.2 LAB L100.1600 27.0-32.0 pg Normal MCH 30.7 LAB L100.1700 32-36 g/gl Low MCHC 31.9 LAB L100.1810 11.6-14.6 % High RDW CV 16.4 LAB L100.1820 35.1-43.9 fl High RDW SD 57.5 LAB L100.1900 150-450 K/mm3 Normal PLT 212 LAB L100.2000 6.2-12.0 fl Normal MPV 11.4 Performed By: #### L100.0500, L300.3900, L300.4310 #### [facility] [address] [place], [place], [id number] PROTHROMBIN TIME W/INR Collected: 04/27/2017 Status: F Source: ADY 12:32 PM [facility] REPOSITORY TYPE CODE TESTS RESULT OUT OF RANGE REFERENCE UNITS LAB L300.4150 11.7-14.9 SECONDS Normal PROTIME 13.5 LAB L300.4200 Normal INR 1.1 Performed By: #### L100.0500, L300.3900, L300.4310 #### [facility] [address] [place], [address] PARTIAL THROMBOPLAST Collected: 04/27/2017 Status: F Source: ADY TIME 12:32 PM [facility] REPOSITORY TYPE CODE TESTS RESULT OUT OF RANGE REFERENCE UNITS LAB L300.4310 24.1-36.2 Seconds Normal PTT 31.4 Performed By: #### L100.0500, L300.3900, L300.4310 #### [facility] [address] [place], [address] BASIC METABOLIC Collected: 04/27/2017 Status: F Source: ADY PROFILE (BMP) 12:32 PM [facility] REPOSITORY Order Comment: Comments: For heart cath Comments: For heart cath TYPE CODE TESTS RESULT OUT OF RANGE REFERENCE UNITS LAB L501.0100 74-106 mg/dL High GLU 144 Result Comment: Fasting Glucose result greater than or equal to 126 mg/dL suggests DIABETES MELLITUS per A.D.A. criteria. LAB L501.1000 7-18 mg/dL High BUN 23 LAB L501.1100 0.70-1.30 mg/dL High CREAT,SERUM 4.22 Result Comment: The validity of the calculated GFR AND GFRAA in patients over 70 years has not been determined. Clinical correlation is essential. LAB L501.1110 >60 mL/min Low EST GFR 15 Result Comment: Non- GFR Calc LAB L501.1115 >60 mL/min Low EST GFR - AA 18 Result Comment: GFR Calc LAB L501.1300 10-20 RATIO Low BUN/CRE 5.5 LAB L501.2200 8.5-10.1 mg/dL Normal CA 8.9 LAB L501.5300 136-145 mmol/L Normal NA 139 LAB L501.5600 3.5-5.1 mmol/L Normal K 3.9 LAB L501.5900 98-107 mmol/L Normal CL 102 LAB L501.6100 21.0-32.0 mmol/L Normal CO2 27.0 LAB L501.6200 5-15 Normal GAP 10 Performed By: #### L500.2500 #### [facility] [address] [place], [address] CHEST PA AND LATERAL Observed: 04/27/2017 Status: F Source: ADY 12:24 PM [facility] REPOSITORY [facility] [address] [place] [address] Chest PA and Lateral MR#: [id number] Acct: [id number] Name: PAXTON CRUZ Jr. Rep #: [id number] : 1945 M 71 From: Denilson Islas PCP: Sean Medina MD Status: REG CLI Study: Chest PA and Lateral Date of Exam: 04/27/17 Exam# [id number] Ordering Dr: Juan Dan MD STUDY: X-RAY CHEST REASON FOR EXAM: Male, 71 years old. Dyspnea. Patient scheduled for cardiac catheterization 4 days. TECHNIQUE: PA and lateral chest. COMPARISON: 03/26/2017. FINDINGS: Right internal jugular catheter with the tip in the lower superior vena cava. Small bilateral pleural effusions. No pneumothorax. Borderline cardiomegaly. Normal mediastinum and evelio. Normal visualized pulmonary arteries. Normal visualized aortic arch and descending thoracic aorta. Normal visualized thoracic spine. Normal visualized ribs, clavicles, and shoulders. There is no demonstrated abnormality of the visualized soft tissue structures of the upper abdomen. RAD/Chest PA and Lateral IMPRESSION: Stable chest. Small bilateral pleural effusions. Borderline cardiomegaly. Electronically Signed: Denilson Islas MD at 7:29 EST , Service support , CC: Sean Medina MD; Juan Dan MD Artist Representative: Signed ECHOCARDIOGRAM COMPLETE Observed: 04/23/2017 Status: F Source: ADY 5:58 PM [facility] REPOSITORY [facility] [address] [place] [address] Echo Complete 04/23/17 1250 MR#: [id number] Acct: [id number] Name: PAXTON CRUZ Rep #: [id number] : 1945 71 From: Juan Dan MD Attending Dr: Sean Medina MD Status: REG CLI Ordering Dr: Sean Medina MD Date: 04/23/17 Location: [facility] Sex: M C Admitted: Reason For Study: ANEMIA Procedure This was a 2D Doppler, Color Flow transthoracic echocardiogram. The exam was of adequate technical quality. Exam performed in department. Left Ventricle Normal LV size. Severe segmental systolic dysfunction (see wall motion). The estimated ejection fraction is 20 %. Anterio-Basal: Hypokinetic. Lateral-Basal: Hypokinetic. Posterior-Basal: Severely hypokinetic. Infero-Basal: Akinetic. Basal inferoseptal: Hypokinetic. Mid-Anterior : Akinetic. Mid- Lateral : Akinetic. Mid-Posterior: Hypokinetic. Mid-Inferior: Akinetic. Mid-inferoseptal : Hypokinetic. Anterior [place] : Hypokinetic. Inferior [place] : Akinetic. Lateral [place] : Hypokinetic. Septal [place] : Hypokinetic. Right Ventricle Normal RV size. Moderate segmental dysfunction of right ventricle. Atria The left atrium is mildly enlarged. Normal right atrium. No doppler evidence for ASD. Mitral Valve There is no mitral annular calcification. Mild diffuse mitral valve thickening. Mild papillary muscle dysfunction of the mitral valve. Mild-Moderate (1-2+) mitral valve insufficiency. Tricuspid Valve Normal tricuspid valve. Mild to moderate (1-2+) tricuspid valve insufficiency. Right ventricular systolic pressure estimated to be 55 mmHg. Aortic Valve Trisinus/trileaflet aortic valve. Mild diffuse aortic valve thickening. Mild focal aortic valve calcification. Aortic sclerosis, no stenosis. Trivial aortic valve insufficiency. Pulmonic Valve The pulmonic valve is not well visualized. Great Vessels Normal sized aortic root. Pericardium/Pleural Small pericardial effusion. There are no echocardiographic indications of cardiac tamponade. Echolucency c/w a pleural effusion. MMode/2D Measurements AND Calculations LVIDd: 5.3 cm IVSd: 0.92 cm Ao root diam: 3.2 cm LVIDs: 4.8 cm LVPWd: 0.91 cm LA dimension: 4.1 cm RVDd: 3.4 cm FS: 10.1 % LAV(MOD-bp): 64.5 ml LA A4 area: 19.6 cm2 RA A4 area: 16.3 cm2 LAV(MOD-bp) Indexed: 33.7 ml/m2 LAV(MOD-sp2): 64.6 ml LAV(MOD-sp4): 57.9 ml Doppler Measurements AND Calculations MV E max ron: 66.9 cm/sec Ao V2 max: 108.4 cm/sec LV V1 max: 98.3 cm/sec MV A max ron: 121.8 cm/sec Ao max P.7 mmHg LV V1 max P.9 mmHg MV E/A: 0.55 PA V2 max: 58.0 cm/sec TR max ron: 341.7 cm/sec TR max P.8 mmHg Interpretation Summary Severe segmental systolic dysfunction (see wall motion). The estimated ejection fraction is 20 %. Moderate segmental dysfunction of right ventricle. The left atrium is mildly enlarged. Mild diffuse mitral valve thickening. Mild papillary muscle dysfunction of the mitral valve. Mild-Moderate (1-2+) mitral valve insufficiency. Mild to moderate (1-2+) tricuspid valve insufficiency. Aortic sclerosis, no stenosis. Trivial aortic valve insufficiency. Small pericardial effusion. There are no echocardiographic indications of cardiac tamponade. Echolucency c/w a pleural effusion. Right ventricular systolic pressure estimated to be 55 mmHg. Ordering Physician: Sean Medina Referring Physician: Sean Medina Performed By: Natalie Bond, NICHOLAS, RVT 04/23/171756 Date Juan Dan MD CC: Sean Medina MD Date Dictated: 04/23/17 1250 Date Transcribed: 04/23/171756 Artist Representative: Signed VENOUS DUPLEX UPPER Observed: 04/23/2017 Status: F Source: [place] EXTREMITY 3:23 PM [facility] REPOSITORY [facility] [address] [place] [address] Saphenous Vein Mapping, Bil 04/23/17 1148 MR#: [id number] Acct: [id number] Name: PAXTON CRUZ Rep #: [id number] : 1945 71 From: Kristian Gunn MD Attending Dr: Sean Medina MD Status: REG CLI Ordering Dr: Sean Medina MD Date: 04/23/17 Location: [facility] Sex: M C Admitted: Reason For Study: Assess for possible dialysis access placement Right Arm Left Arm Right Cephalic Vein at the wrist Left Cephalic Vein at the wrist measures .22 measures .22 x .26 cm. x .21 cm. Right Cephalic Vein in the forearm Left Cephalic Vein in the forearm measures .30 x .32 cm. measures .27 x .26 cm. Right Cephalic Vein below antecub Left Cephalic Vein below antecub measures .30 x .31 cm. measures .30 x .32 cm. Right Cephalic Vein above antecub Left Cephalic Vein above antecub measures .28 x .27 cm. measures .29 x .31 cm. Right Cephalic Vein mid bicep measures .26 Left Cephalic Vein at mid bicep measures .21 x .30 cm. x .22 cm. Right Cephalic Vein at the shoulder Left Cephalic Vein at the shoulder measures .27 x .26 cm. measures .20 x .22 cm. Right Basilic Vein at the origin Basilic vein at origin measures .47 x .46 measures .38 x .36 cm. cm. Right Basilic Vein mid bicep measures .30 Basilic vein at bicep measures .47 x .47 cm. x .29 cm. Basilic vein above antecub measures .37 Right Basilic Vein above antecub x .37 cm. measures .18 x .22 cm. Brachial artery - .47 x .50 cm with a Brachial artery - .54 x .57 cm with a velocity of 80.9 cm/sec velocity of 58.9 cm/sec Radial artery - .30 x .30 cm with a velocity Radial artery - .26 x .27 cm with a velocity of 66.0 cm/sec. of 73.9 cm/sec. < Interpretation Summary Patent and compressible bilateral cephalic and basilic veins with dimensions as noted. Adequate diameter and flow bilateral radial and brachial arteries. Ordering Physician: Sean Medina Referring Physician: Sean Medina Performed By: Cyndee Ramos RVT 04/23/17 152 Date Kristian Gunn MD CC: Sean Medina MD Date Dictated: 04/23/17 1148 Date Transcribed: 02/01/18 1522 Artist Representative: Signed ALLERGIES ALLERGIES DATE TYPE / CODE NAME / CODE REACTION SEVERITY SOURCE 04/13/2018 Drug codeine/F006 Itching Unknown [place] [facility] Allergy/[id number]([facility] [address](SNOMED M) Repository CT) ENCOUNTERS ENCOUNTERS ADMIT/DISCHARGE ACCOUNT ADMITTING ENCOUNTER LOCATION SOURCE NUMBER CLASS 04/13/2018/ [id number] Ambulatory BMSBuilding:B [place] 9 0 [place].[facility] Repository 03/29/2018/ [id number] Ambulatory BMSBuilding:B [place] 9 7 MS.[facility] Repository 03/09/2018 [id number] Ambulatory [place] 0 [facility] ing:[facility] Repository 02/08/2018 [id number] Ambulatory BMSBuilding:B Ady 2 MS.[facility] Repository 11/12/2017/ [id number] Ambulatory [place] Ady 8 7 [facility] ing:[facility] Repository 11/12/2017 [id number] Ambulatory BMSBuilding:B [place] 8 MS.CF.[facility] Repository 11/03/2017/ [id number] Ambulatory BMSBuilding:B [place] 8 5 MS.[facility] Repository 09/22/2017/ [id number] Ambulatory BMSBuilding:B [place] 8 7 [place].[facility] Repository 09/15/2017/ [id number] Ambulatory Ady [place] 8 5 [facility] Hospital ing:[facility] Repository 09/15/2017 [id number] Ambulatory BMSBuilding:B [place] 9 MS.CF.[facility] Repository 09/03/2017/ [id number] Ambulatory BMSBuilding:B [place] 8 1 MS.[facility] Repository 08/04/2017/ [id number] Ambulatory BMSBuilding:B Ad[place] 8 1 MS.[facility] Repository 07/23/2017/ [id number] Ambulatory BMSBuilding:B [place] 8 3 MS.[facility] Repository 07/23/2017 [id number] Ambulatory Ady Ady 0 [facility] Hospitalild Hospital ing:LAB.[facility]UR Repository E 07/14/2017/ [id number] Ambulatory BMSBuilding:B Ad[place] 8 1 MS.[facility] Repository 06/30/2017 [id number] Ambulatory BMSBuilding:B Ady 0 MS.[facility] Repository 06/23/2017/ [id number] Ambulatory BMSBuilding:B [place] 8 6 [facility] Repository 06/11/2017/ [id number] Ambulatory BMSBuilding:B [place] 8 1 MS.[facility] Repository 06/08/2017/ [id number] Ambulatory [place] [facility]y 8 6 [facility] ing[facility] Repository 06/08/2017 [id number] Ambulatory BMSBuilding:B Ady 7 MS.CF.[facility] Repository 05/25/2017/ [id number] Ambulatory BMSBuilding:B [place] 8 7 MS.[facility] Repository 05/21/2017 [id number] Ambulatory BMSBuilding:B [place] 6 MS.CF.[facility] Repository 05/21/2017 [id number] Ambulatory BMSBuilding:W Ady 9 [facility] Hospital Repository 05/20/2017 [id number] Ambulatory BMSBuilding:W [place] 3 [facility] Repository 05/20/2017 [id number] Ambulatory BMSBuilding:W Ad[place] 5 [facility] Hospital Repository 05/20/2017/ [id number] Ambulatory Ady [place] 8 0 [facility] Hospitalild Hospital ing:CLSPRoom: Repository [id number] 05/15/2017/ [id number] Ambulatory BMSBuilding:B [place] 8 0 MS.[facility] Repository 05/15/2017 [id number] Ambulatory Ady [place] 7 [facility] Hospitalild Hospital ing:[facility] Repository 05/15/2017 [id number] Ambulatory BMSBuilding:W [place] 3 [facility] Hospital Repository 05/01/2017 [id number] Ambulatory [place] 0 [facility] Hospital[facility] Hospital ing:[facility] Repository 05/01/2017 [id number] Ambulatory BMSBuilding:W [place] 8 [facility] Hospital Repository 04/28/2017 [id number] Ambulatory [place] 4 [facility] Hospital ing:RAD.[facility]UTUR Repository E 04/27/2017/ [id number] Ambulatory BMSBuilding:B [place] 8 3 MS.[facility] Hospital Repository 04/27/2017 [id number] Ambulatory Ady Ady 9 [facility] ing:LAB Repository 04/23/2017 [id number] Ambulatory Ady [place] 7 [facility] ing:[facility] Repository 04/23/2017 [id number] Ambulatory BMSBuilding:B Ady 2 MS.CF.[facility] Repository 04/23/2017 [id number] Ambulatory [place] 4 [facility] ing:[facility] Repository 04/23/2017 [id number] Ambulatory BMSBuilding:W [place] 7 [facility] Repository PAYERS PAYERS ENCOUNTER GUARANTOR PAYER SUBSCRIBER SOURCE 04/13/2018 PAXTON CRUZ Primary Insurance:[facility] PAXTON Roverto NANCY Ad[place] Jr.[address] [facility] [place] Number: [id number] Hospital [address]Rew: 330 [id number] Repository [phone] () Date:9102-06-93IY [address] [address]PE: 04/13/2018 Secondary NOT GIVENUNK Ady Insurance:SELF PAY [facility] Number: Effective Repository Date:2018-04-13 03/29/2018 PAXTON CRUZ Primary Insurance:[facility] PAXTON YANGYERS Ady Jr.[address] [facility] Jr.: [place] Number: [id number] Hospital [address]Ybj: 330 [id number] Repository [phone] () Date:8581-92-53JW[address] [address]IX: 03/29/2018 Secondary NOT GIVENUNK Ad[place] Insurance:SELF PAY [facility] Number: Effective Repository Date:2018-03-29 03/09/2018 PAXTON G NANCY Primary PAXTON G NANCY Ady Jr.[address] Insurance:HUMANA Jr.: [place] PPOPolicy [id number] Hospital [address]Eue: (330) Number: Repository [phone] () [id number] Date:9000-36-99JA [address] [address]JA: 03/09/2018 Secondary PAXTON G NANCY [place] Insurance:MEDICAIDPol Jr.: [facility] icy Number: [id number] Hospital [id number] Repository Date:2018-03-09 03/09/2018 Tertiary NOT GIVENUNK [place] Insurance:SELF PAY [facility] Number: Effective Repository Date:2018-03-09 02/08/2018 PAXTON G NANCY Primary PAXTON G NANCY [place] Jr.[address] Insurance:HUMANA Jr.: [place] PPOPolicy [id number] [address]Tel: (330) Number: Repository [phone] () [id number] Date:8545-54-61ZA [address]46[address]WP: 02/08/2018 Secondary NOT GIVENUNK Ady Insurance:SELF PAY [facility] Number: Effective Repository Date:2017-04-27 11/12/2017 PAXTON G NANCY Primary PAXTON G NANCY Ady Jr.[address] Insurance:HUMANA Jr.: [place] PPOPolicy [id number] Hospital [address]Fhm: (330) Number: Repository [phone] () [id number] Date:7696-92-52YS [address] [address]MW: 11/12/2017 Secondary PAXTON G NANCY Ady Insurance:MEDICAIDPol Jr.: [facility] icy Number: [id number] Hospital [id number] Repository Date:2017-11-04 11/12/2017 Tertiary NOT GIVENUNK [place] Insurance:SELF PAY [facility] Number: Effective Repository Date:2017-11-04 11/12/2017 PAXTON G NANCY Primary PAXTON G NANCY [place] Jr.[address] Insurance:HUMANA Jr.: [place] MEDICARE [facility] [id number] Hospital [address]Uln: (330) Number: Repository [phone] () [id number] Date:1249-10-81EN [address] [place], [place] [address]WP: 11/12/2017 Secondary PAXTON G NANCY [place] Insurance:MEDICAIDPol Jr.: [facility] icy Number: [id number] Hospital [id number] Repository Date:2017-11-04 11/12/2017 Tertiary NOT GIVENUNK [place] Insurance:SELF PAY [facility] Number: Effective Repository Date:2017-11-12 11/03/2017 PAXTON G NANCY Primary PAXTON G NANCY [place] Jr.[address] Insurance:HUMANA Jr.: [place] PPOPolicy [id number] Hospital [address]Tpq: (330) Number: Repository [phone] () [id number] Date:6168-14-02HS [place] [address]WP: 11/03/2017 Secondary PAXTON G NANCY [place] Insurance:MEDICAIDPol Jr.: [facility] icy Number: [id number] Hospital [id number] Repository Date:2017-10-13 11/03/2017 Tertiary NOT GIVENUNK [place] Insurance:SELF PAY [facility] Number: Effective Repository Date:2017-11-03 09/22/2017 PAXTON G NANCY Primary PAXTON G NANCY Ady Jr.[address] Insurance:HUMANA Jr.: [place] MEDICARE [facility] [id number] Hospital [address]Rfw: (330) Number: Repository [phone] () [id number] Date:7708-06-40BS[address] [address]QC: 09/22/2017 Secondary PAXTON G NANCY Ad[place] Insurance:MEDICAIDPol Jr.: [facility] icy Number: [id number] Hospital [id number] Repository Date:2017-09-16 09/22/2017 Tertiary NOT GIVENUNK [place] Insurance:SELF PAY [facility] Number: Effective Repository Date:2017-09-22 09/15/2017 PAXTON G NANCY Primary PAXTON G NANCY [place] Jr.[address] Insurance:HUMANA Jr.: [place] PPOPolicy [id number] Hospital [address]Noq: (330) Number: Repository [phone] () [id number] Date:3200-72-80ZL [address] [address]EG: 09/15/2017 Secondary PAXTON G NANCY Ad[place] Insurance:MEDICAIDPol Jr.: Community icy Number: [id number] Hospital [id number] Repository Date:2017-09-03 09/15/2017 Tertiary NOT GIVENUNK [place] Insurance:SELF PAY [facility] Number: Effective Repository Date:2017-09-03 09/15/2017 PAXTON G NANCY Primary PAXTON G NANCY [place] Jr.[address] Insurance:HUMANA Jr.: [place] PPOPolicy [id number] Hospital [address]Iuz: (330) Number: Repository [phone] () [id number] Date:2764-35-10GK [address] [address]SW: 09/15/2017 Secondary PAXTON G NANCY [place] Insurance:MEDICAIDPol Jr.: Community icy Number: [id number] Hospital [id number] Repository Date:2017-09-03 09/15/2017 Tertiary NOT GIVENUNK [place] Insurance:SELF PAY [facility] Number: Effective Repository Date:2017-09-15 09/03/2017 PAXTON G NANCY Primary PAXTON G NANCY [place] Jr.[address] Insurance:HUMANA Jr.: [place] PPOPolicy [id number] [place] [id number]: (330) Number: Repository [phone] () [id number] Date:8420-40-01LJ [address] [address]QV: 09/03/2017 Secondary PAXTON G NANCY [place] Insurance:MEDICAIDPol Jr.: [facility] icy Number: [id number] Hospital [id number] Repository Date:2017-09-02 09/03/2017 Tertiary NOT GIVENUNK [place] Insurance:SELF PAY [facility] Number: Effective Repository Date:2017-09-03 08/04/2017 PAXTON G NANCY Primary PAXTON G NANCY Ad[place] Jr.[address] Insurance:HUMANA Jr.: [place] PPOPolicy [id number] [place] [address]Tel: (330) Number: Repository [phone] () [id number] Date:0436-51-65LR [address]46[address]WP: 08/04/2017 Secondary PAXTON G NANCY [place] Insurance:MEDICAIDPol Jr.: [facility] ic Number: [id number] Hospital [id number] Repository Date:2017-07-14 08/04/2017 Tertiary NOT GIVENUNK [place] Insurance:SELF PAY [facility] Number: Effective Repository Date:2017-07-14 07/23/2017 PAXTON G NANCY Primary PAXTON G NANCY [place] Jr.[address] Insurance:HUMANA Jr.: [place] PPOPolicy [id number] Hospital [address]Cmm: (330) Number: Repository [phone] () [id number] Date:0074-09-06NZ [address] [address]NG: 07/23/2017 Secondary PAXTON G NANCY [place] Insurance:MEDICAIDPol Jr.: [facility] icy Number: [id number] Hospital [id number] Repository Date:2017-07-21 07/23/2017 Tertiary NOT GIVENUNK [place] Insurance:SELF PAY [facility] Number: Effective Repository Date:2017-07-23 07/23/2017 PAXTON G NANCY Primary PAXTON G NANCY [place] Jr.[address] Insurance:HUMANA Jr.: [place] PPOPolicy [id number] Hospital [address]Rtq: (330) Number: Repository [phone] () [id number] Date:6595-63-61AA [place] [address]WP: 07/23/2017 Secondary PAXTON G NANCY [place] Insurance:MEDICAIDPol Jr.: [facility] ic Number: [id number] Hospital [id number] Repository Date:2017-07-14 07/23/2017 Tertiary NOT GIVENUNK [place] Insurance:SELF PAY [facility] Number: Effective Repository Date:2017-07-14 07/14/2017 PAXTON G NANCY Primary PAXTON G NANCY [place] Jr.[address] Insurance:HUMANA Jr.: [place] PPOPolicy [id number] Hospital 85[address]Kdo: (330) Number: Repository [phone] () [id number] Date:8664-60-00UV [place] [address]WP: 07/14/2017 Secondary NOT GIVENUNK [place] Insurance:SELF PAY [facility] Number: Effective Repository Date:2017-06-23 06/30/2017 PAXTON G NANCY Primary PAXTON G NANCY [place] Jr.[address] Insurance:HUMANA Jr.: [place] PPOPolicy [id number] Hospital [address]Rea: (330) Number: Repository [phone] () [id number] Date:5672-99-22[place] [address]WP: 06/30/2017 Secondary NOT GIVENUNK [place] Insurance:SELF PAY [facility] Number: Effective Repository Date:2017-05-21 06/23/2017 PAXTON G NANCY Primary PAXTON G NANCY [place] Jr.[address] Insurance:HUMANA Jr.: [place] PP[place] [id number] Hospital 28[address]Yev: (330) Number: Repository [phone] () [id number] Date:3979[place]40[place] [address]WP: 06/23/2017 Secondary NOT GIVENUNK [place] Insurance:SELF PAY [facility] Number: Effective Repository Date:2017-06-11 06/11/2017 PAXTON G NANCY Primary PAXTON G NANCY [place] Jr.[address] Insurance:HUMANA Jr.: [place] PPOP[place]icy [id number] V[place] [address]Tel: (330) Number: Repository [phone] () [id number] Date:2887-02-93[place] [address]WP: 06/11/2017 Secondary NOT GIVENUNK [place] Insurance:SELF PAY [facility] Number: Effective Repository Date:2017-06-11 06/08/2017 PAXTON G NANCY Primary PAXTON G NANCY [place] Jr.[address] Insurance:HUMANA Jr.: [place] PPOP[place]icy [id number] [place] [address]Tel: (330) Number: Repository [phone] () [id number] Date:3278-14-43AT[address] [address]DF: 06/08/2017 Secondary NOT GIVENUNK [place] Insurance:SELF PAY [facility] Number: Effective Repository Date:2017-05-19 06/08/2017 PAXTON G NANCY Primary PAXTON G NANCY [place] Jr.[address] Insurance:HUMANA Jr.: [place] PP[place] [id number] Hospital 630[address]Ypm: (330) Number: Repository [phone] () [id number] Date:6629-41-70WS [address] [place] [address]MI: 06/08/2017 Secondary NOT GIVENUNK [place] Insurance:SELF PAY [facility] Number: Effective Repository Date:2017-06-08 05/25/2017 PAXTON G NANCY Primary PAXTON G NANCY [place] Jr.[address] Insurance:HUMANA Jr.: [place] [id number] Hospital [address]Jzd: (330) Number: Repository [phone] () [id number] Date:1043-59-90FI [address] [address]HL: 05/25/2017 Secondary NOT GIVENUNK [place] Insurance:SELF PAY [facility] Number: Effective Repository Date:2017-05-01 05/21/2017 PAXTON G NANCY Primary PAXTON G NANCY [place] Jr.[address] Insurance:HUMANA Jr.: [place] PPOPolicy [id number] [place] [address]Tel: (330) Number: Repository [phone] () [id number] Date:5993-92-60WM [address] [address]DP: 05/21/2017 Secondary NOT GIVENUNK [place] Insurance:SELF PAY [facility] Number: Effective Repository Date:2017-05-21 05/21/2017 PAXTON G NANCY Primary PAXTON G NANCY [place] Jr.[address] Insurance:HUMANA Jr.: [place] PP[place] [id number] Hospital [address]Boj: (330) Number: Repository [phone] () [id number] Date:7787-50-77DO [address] [address]NO: 05/21/2017 Secondary NOT GIVENUNK [place] Insurance:SELF PAY [facility] Number: Effective Repository Date:2017-05-21 05/20/2017 PAXTON G NANCY Primary PAXTON G NANCY [place] Jr.[address] Insurance:HUMANA Jr.: [place] PPOP[place] [id number] Hospital 76[address]Mvr: (330) Number: Repository [phone] () [id number] Date:6567-00-24VX[address]46[address]WP: 05/20/2017 Secondary NOT GIVENUNK [place] Insurance:SELF PAY [facility] Number: Effective Repository Date:2017-05-20 05/20/2017 PAXTON G NANCY Primary PAXTON G NANCY [place] Jr.[address] Insurance:HUMANA Jr.: [place] PPOPolicy [id number] [place]ille [address]Tel: (330) Number: Repository [phone] () [id number] Date:2350-88-48LC[address]4601WP: 05/20/2017 Secondary NOT GIVENUNK [place] Insurance:SELF PAY [facility] Number: Effective Repository Date:2017-05-20 05/20/2017 PAXTON G NANCY Primary PAXTON G NANCY [place] Jr.[address] Insurance:HUMANA Jr.: [place] PP[place] [id number] Hospital 6[address]Wdu: (330) Number: Repository [phone] () [id number] Date:4862-71-70LI[address] [address]WL: 05/20/2017 Secondary NOT GIVENUNK [place] Insurance:SELF PAY [facility] Number: Effective Repository Date:2017-05-15 05/15/2017 PAXTON G NANCY Primary PAXTON G NANCY [place] Jr.[address] Insurance:HUMANA Jr.: [place] PP[place] [id number] Hospital [address]Ufk: (330) Number: Repository [phone] () [id number] Date:6043-75-58DD [place] [address]WP: 05/15/2017 Secondary NOT GIVENUNK [place] Insurance:SELF PAY [facility] Number: Effective Repository Date:2017-05-07 05/15/2017 PAXTON G NANCY Primary PAXTON G NANCY [place] Jr[address] Insurance:HUMANA Jr.: [place] PPOP[place]icy [id number] [place] [address]Tel: (330) Number: Repository [phone] () [id number] Date:9489-37-50RJ [address]46[address]WP: 05/15/2017 Secondary NOT GIVENUNK [place] Insurance:SELF PAY [facility] Number: Effective Repository Date:2017-05-05 05/15/2017 PAXTON G NANCY Primary PAXTON G NANCY [place] Jr.[address] Insurance:HUMANA Jr.: [place] [id number] Hospital [address]Jyd: (330) Number: Repository [phone] () [id number] Date:5649-55-23XH [address]46[address]WP: 05/15/2017 Secondary NOT GIVENUNK [place] Insurance:SELF PAY [facility] Number: Effective Repository Date:2017-05-15 05/01/2017 PAXTON G NANCY Primary PAXTON G NANCY [place] Jr.[address] Insurance:HUMANA Jr.: [place] PPOP[place]icy [id number] [place] [address]35[address]Tel: (330) Number: Repository [phone] () [id number] Date:5114-99-80DA [address] [address]RC: 05/01/2017 Secondary NOT GIVENUNK [place] Insurance:SELF PAY [facility] Number: Effective Repository Date:2017-04-27 05/01/2017 PAXTON G NANCY Primary PAXTON G NANCY [place] Jr[address] Insurance:HUMANA Jr.: [place] [id number] Hospital [address]Gtp: (330) Number: Repository [phone] () [id number] Date:7558-86-50CJMEREDITH [place]ILLE [address]WP: 05/01/2017 Secondary NOT GIVENUNK [place] Insurance:SELF PAY [facility] Number: Effective Repository Date:2017-05-01 04/28/2017 PAXTON G NANCY Primary PAXTON G NANCY [place] Jr.[address] Insurance:HUMANA Jr.: [place] PPOP[place] [id number] Hospital 37[address]Zqu: (330) Number: Repository [phone] () [id number] Date:2287-79-95LPMEREDITH VILLE [address]WP: 04/28/2017 Secondary NOT GIVENUNK [place] Insurance:SELF PAY [facility] Number: Effective Repository Date:2017-04-28 04/27/2017 PAXTON G NANCY Primary PAXTON G NANCY [place] Jr[address] Insurance:HUMANA Jr.: [place] [id number] Hospital [address]Gaa: (330) Number: Repository [phone] () [id number] Date:2119-17-06IB[address]4601WP: 04/27/2017 Secondary NOT GIVENUNK [place] Insurance:SELF PAY [facility] Number: Effective Repository Date:2017-04-27 04/27/2017 Paxton G Nancy Primary Paxton G Nancy [place] [address] Insurance:HUMANA JRDOB: [place] PPOPolicy [id number] Hospital [address]Xto: (330) Number: Repository [phone] () [id number] Date:4865-98-31[place] [address]WP: 04/27/2017 Secondary NOT GIVENUNK [place] Insurance:SELF PAY [facility] Number: Effective Repository Date:2017-04-27 04/23/2017 Paxton G [place] Primary Paxton G [place] Ady [id number] Insurance:HUMANA JRDOB: [place], [place] MEDICARE [facility] [id number] Hospital [address]661Tpw: (330) Number: Repository [phone] () [id number] Date:1485-42-17GJ [place] [address]WP: 04/23/2017 Secondary NOT GIVENUNK [place] Insurance:SELF PAY [facility] Number: Effective Repository Date:2017-04-14 04/23/2017 PAXTON G NANCY Primary PAXTON G NANCY [place] Jr[address] Insurance:HUMANA Jr.: [place] [facility] [id number] Hospital [address]Vma: (330) Number: Repository [phone] () [id number] Date:8684-20-24OZ [address]46[address]WP: 04/23/2017 Secondary NOT GIVENUNK [place] Insurance:SELF PAY [facility] Number: Effective Repository Date:2017-04-23 04/23/2017 Paxton G Nancy Primary Paxton G Nancy [place] [id number] Insurance:HUMANA JRDOB: [facility] [place] [facility] [id number] Hospital [address]Cpn: (330) Number: Repository [phone] () [id number] Date:7470-61-11[place] [address]WP: 04/23/2017 Secondary NOT GIVENUNK [place] Insurance:SELF PAY [facility] Number: Effective Repository Date:2017-04-07 04/23/2017 PAXTON G NANCY Primary PAXTON Garsia Jr.[address] Insurance:HUMANA JrVanessa: [facility] [place] PPOPolicy [id number] Hospital [address]Vzd: (330) Number: Repository [phone] () [id number] Date:7626-54-82[address] [place] [address]BD: 04/23/2017 Secondary NOT GIVENAVRIL Garsia Insurance:SELF PAY [facility] Number: Effective Repository Date:2017-04-23
== END ==
PROVIDERS: Family Provider Family Medicine; PCP Family Medicine; Visit Provider Family Medicine
DX: I50.22 Chronic systolic (congestive) heart failure (principal); E06.3 Autoimmune thyroiditis; E78.5 Hyperlipidemia, unspecified
CPT/HCPCS: 36415; 80053; 80061; 83880; 84439; 84443; 85025

== ENCOUNTER 2018-04-15 11:09 | Day surgery (SDC) | payer MEDICARE, SELFPAY ==
[2017-05-20 15:37] VITALS: BMI 26.9
[2018-04-13 13:01] VITALS: BMI 27.0
[2018-04-14 09:09] VITALS: BMI 26.1
[2018-04-15 11:39] LABS: Hematocrit 36.9 % (40-54); Hemoglobin 12.1 g/dl (13.0-16.5); Mean Corp Hgb Conc 32.8 g/gl (32-36); Mean Corpuscular Hgb 33.5 pg (27.0-32.0); Mean Corpuscular Volume 102.2 fL (80-94); Platelet Count 196 K/mm3 (150-450); RBC Distribution Width CV 14.2 % (11.6-14.6); RBC Distribution Width SD 53.2 fl (35.1-43.9); Red Blood Count 3.61 M/mm3 (4.6-6.2); White Blood Count 6.3 K/mm3 (4.4-11.0)
[2018-04-15 11:44] LABS: Scan Indicated on CBC? Y/N NO
[2018-04-15 11:48] LABS: Anion Gap 10 (5-15); BUN 29 mg/dL (7-18); BUN/Creat Ratio 6.5 RATIO (10-20); Calcium,Total 7.8 mg/dL (8.5-10.1); Chloride 98 mmol/L (98-107); Creatinine, Serum 4.47 mg/dL (0.70-1.30); EST Glomerular Filtration Rate 14 mL/min (>60); Est Glom Filt Rate - Afr Amer 17 mL/min (>60); Estimated Creatinine Clearance 14.03 ml/min; Glucose 191 mg/dL (74-106); Potassium 3.2 mmol/L (3.5-5.1); Sodium Level 137 mmol/L (136-145)
--- NOTE | 2018-04-15 13:47 | PCM.OPRPT ---
Problem List (1) Problem with dialysis access Status: Acute Qualifiers: Encounter type: subsequent encounter Report of Operation Date of Procedure: 04/15/18 Pre-Operative Diagnosis: Diminished flow left forearm transposed cephalic vein to radial artery arterial venous hemodialysis fistula Post-Operative Diagnosis: Long 15 cm segment of high-grade venous stenosis left upper arm cephalic vein fistula outflow Surgery/Procedure Performed:: Left upper extremity fistulogram with 8 x 4 conquest angioplasty and 6 x 15 drug coated balloon Lutonix angioplasty Description of Surgical Findings:: Timeout and informed consent was obtained. 72-year-old gentleman was taken to special procedures lab placed on the table. Unfortunately he drove himself so no sedative was given. The left extremity sterilely prepped draped. In the distal forearm 2% lidocaine was instilled as a local anesthetic and then antegrade with flow micropuncture needle inserted and a micropuncture wire inserted. A 6 Gabonese short sheath catheter inserted. Using Isovue contrast fistulogram was obtained of the upper arm. 25 cc was used to visualize the fistula. This demonstrated good cephalic arch outflow and good central venous outflow there is areas of very high grade tight venous stenosis in a beaded pattern throughout the cephalic vein encompassing most of the left upper arm. Total measurement was 15 cm in length. An 035 angled Glidewire was able to transgress this. I placed a 4 Gabonese Fan catheter to confirm correct positioning. I then placed a 6 x 4 conquest balloon in 4 different areas were treated with high pressure angioplasty. The patient tolerated with that balloon up to 10 brittany of pressure. Completion view demonstrated marked improvement now but now irregular disease. Because this was the patient's third fistulogram I elected to place a 6 x 15 mm drug-coated balloon. This was inflated to 14 brittany of pressure. Was held for 3 minutes. Final view demonstrated dramatic improvement in the areas of high-grade venous stenosis. There was resumption of a pulse thrill and bruit. Patient tolerated the procedure well no apparent complication. The sheath was removed and a U suture of 4-0 nylon was placed. Images demonstrate a left forearm radial to cephalic AV fistula. There appears to be occlusion of the upper arm basilic vein. There is high-grade venous stenosis involving the cephalic vein of the upper arm. The cephalic arch and proximal venous system demonstrates good outflow. Subsequent to the [employer] and Lutonix Z-plasty there is now resumption of good in-line flow. Contrast used 25 cc Kristian Gunn M.D., F.A.C.S. Type of Anesthesia:: Local
== END 2018-04-15 14:42 | disposition home or self-care (01) ==
PROVIDERS: Family Provider Family Medicine; PCP Family Medicine; Referring Provider Surgery; Visit Provider Surgery
DX: T82.858A Stenosis of other vascular prosthetic devices, implants and grafts, initial encounter (principal); I87.1 Compression of vein; I12.0 Hypertensive chronic kidney disease with stage 5 chronic kidney disease or end stage renal disease; E11.22 Type 2 diabetes mellitus with diabetic chronic kidney disease; N18.6 End stage renal disease; N17.9 Acute kidney failure, unspecified; Z99.2 Dependence on renal dialysis; I27.20 Pulmonary hypertension, unspecified; I25.5 Ischemic cardiomyopathy; I34.0 Nonrheumatic mitral (valve) insufficiency; I07.1 Rheumatic tricuspid insufficiency; I48.0 Paroxysmal atrial fibrillation; I25.110 Atherosclerotic heart disease of native coronary artery with unstable angina pectoris; E78.5 Hyperlipidemia, unspecified; E87.5 Hyperkalemia; I25.2 Old myocardial infarction; Z79.02 Long term (current) use of antithrombotics/antiplatelets; Z79.899 Other long term (current) drug therapy; Z95.5 Presence of coronary angioplasty implant and graft
CPT/HCPCS: 36415; 36902; 80048; 85027; C2623; Q9967; C1725; C1769

== ENCOUNTER → 2018-04-29 11:22 | Outpatient (CLI) | payer MEDICARE, SELFPAY ==
[2017-05-20 15:37] VITALS: BMI 26.9
[2018-04-14 09:09] VITALS: BMI 26.1
[2018-04-29 14:57] LABS: Absolute Lymphocyte Count 0.57 X10^3/ul (0.83-4.51); Absolute Neutrophil Count 4.1 X10^3/uL (2.0-7.7); Basophil# 0.01 X10^3/uL; Basophil% 0.2 % (0-1); Eosinophil# 0.34 X10^3/uL; Eosinophils% 5.7 % (0-5); Hematocrit 33.3 % (40-54); Lymphocyte # 0.57 X10^3/ul (4.0); Lymphocyte % 9.5 % (19-41); Mean Corpuscular Hgb 32.8 pg (27.0-32.0); Mean Corpuscular Volume 99.4 fL (80-94); Monocyte# 0.97 X10^3/uL; Monocyte% 16.2 % (0-10); Neutrophil % 68.4 % (47-70); Platelet Count 207 K/mm3 (150-450); RBC Distribution Width CV 13.3 % (11.6-14.6); RBC Distribution Width SD 48.6 fl (35.1-43.9); Red Blood Count 3.35 M/mm3 (4.6-6.2)
[2018-04-29 15:01] LABS: POSITIVE COUNT NO; POSITIVE DIFFERENTIAL YES; POSITIVE MORPHOLOGY NO
[2018-04-29 15:02] LABS: Differential Indicated SCAN CRITERIA MET; Hemoglobin A1c 7.2 % (4.2-6.3)
[2018-04-29 15:12] LABS: ALB/GLOB Ratio 0.7 RATIO (0.9-2.4); AST(SGOT) 18 U/L (15-37); Alanine Aminotransfer ALT/SGPT 18 U/L (16-61); Alkaline Phosphatase 157 U/L (45-117); Anion Gap 11 (5-15); BUN 10 mg/dL (7-18); BUN/Creat Ratio 3.5 RATIO (10-20); Calcium,Total 7.5 mg/dL (8.5-10.1); Chloride 95 mmol/L (98-107); Cholesterol 147 mg/dL (200); Creatinine, Serum 2.83 mg/dL (0.70-1.30); EST Glomerular Filtration Rate 23 mL/min (>60); Est Glom Filt Rate - Afr Amer 28 mL/min (>60); Globulin 4.4 g/dL (2.2-4.2); Glucose 182 mg/dL (74-106); High Density Lipoprotein 34 mg/dL; Potassium 2.7 mmol/L (3.5-5.1); Protein, Total 7.4 g/dL (6.4-8.2); Sodium Level 139 mmol/L (136-145); T4 Free Direct 0.97 ng/dL (0.76-1.46); Thyroid Stim Hormone (TSH) 1.77 uIU/mL (0.358-3.74); Triglycerides 205 mg/dL; Very Low Density Lipoprotein 41 mg/dL (5-40)
[2018-04-30 10:15] LABS: Vitamin D,25 Hydroxy 11.4 ng/mL (29.95-100.01)
== END ==
PROVIDERS: Family Provider Family Medicine; PCP Family Medicine; Visit Provider Family Medicine
DX: E11.9 Type 2 diabetes mellitus without complications (principal); E78.5 Hyperlipidemia, unspecified; E06.3 Autoimmune thyroiditis; E55.9 Vitamin D deficiency, unspecified; D64.9 Anemia, unspecified
CPT/HCPCS: 36415; 80053; 80061; 82306; 83036; 84439; 84443; 85025

== ENCOUNTER → 2018-05-04 08:24 | Outpatient (CLI) | payer MEDICARE, SELFPAY ==
[2017-05-20 15:37] VITALS: BMI 26.9
[2018-04-14 09:09] VITALS: BMI 26.1
[2018-05-04 08:34] LABS: Potassium 3.4 mmol/L (3.5-5.1)
== END ==
PROVIDERS: Family Provider Family Medicine; PCP Family Medicine; Referring Provider Internal Medicine Nephrology; Visit Provider Internal Medicine Nephrology
DX: E87.6 Hypokalemia (principal)
CPT/HCPCS: 84132

== ENCOUNTER → 2018-06-17 12:20 | Outpatient (CLI) | payer MEDICARE, SELFPAY ==
[2017-05-20 15:37] VITALS: BMI 26.9
[2018-04-14 09:09] VITALS: BMI 26.1
--- NOTE | 2018-06-17 12:23 | RAD_ITS ---
STUDY: X-RAY - LUMBAR SPINE REASON FOR EXAM: Male, 72 years old. Pain in the back and left hip. TECHNIQUE: 5 view(s) of the lumbar spine were obtained. COMPARISON: None FINDINGS: There is partial straightening of the normal lumbar lordosis. There is mild levoscoliosis of the upper spine. There is a normal alignment of the vertebrae. Normal vertebral bodies. There is multilevel severe spondylosis.. There is multi-level degenerative disc disease with multi-level disc space narrowing. There are extensive degenerative changes of the facet joints. The soft tissue structures are unremarkable. RAD/L/S Spine Min 4 Views IMPRESSION: Extensive degenerative changes. No demonstrated fracture or subluxation. Electronically Signed: Duarte Rios MD at 8:00 EDT , Service support ,
--- NOTE | 2018-06-17 12:23 | RAD_ITS ---
STUDY: X-RAY - BILATERAL HIPS WITHOUT PELVIS REASON FOR EXAM: Male, 72 years old. Left hip pain TECHNIQUE: 2 views of the right hip, and 2 views of the left hip were obtained. COMPARISON: None. FINDINGS: Right Hip: There are osteoarthritic changes of the right femoral head with marginal osteophyte formation. Normal right acetabulum. There is mild articular joint space narrowing of the right hip. Left Hip: There are osteoarthritic changes of the left femoral head with marginal osteophyte formation. Normal left acetabulum. There is mild articular joint space narrowing of the left hip. Normal bilateral superior and inferior pubic rami , ischial tuberosities and pubic symphysis. RAD/Hips B/L min 2 views w/ Pelvis IMPRESSION: Mild degenerative change of both hips. No acute findings. Electronically Signed: Neymar Crook DO at 8:23 EDT Tel , Service support ,
--- NOTE | 2018-06-17 12:23 | RAD_ITS ---
STUDY: X-RAY - SACROILIAC JOINTS REASON FOR EXAM: Male, 72 years old. Back and left hip pain. TECHNIQUE: 3 view(s) of the sacroiliac joints were obtained. COMPARISON: None. FINDINGS: There are degenerative changes of the bilateral sacroiliac joints. Normal visualized sacral ala and sacrum. Marked degenerative changes of the lower lumbar spine. Normal visualized iliac bones. Normal visualized soft tissue structures. Phleboliths is seen in the pelvis. RAD/S-I Jts 3 or More Views IMPRESSION: Degenerative changes of the bilateral sacroiliac joints, as described above. Electronically Signed: Benjy Tabor DO at 9:40 EDT Tel [phone], Service support ,
== END ==
PROVIDERS: Family Provider Family Medicine; PCP Family Medicine; Referring Provider Family Medicine; Visit Provider Family Medicine
DX: M54.9 Dorsalgia, unspecified (principal); M25.552 Pain in left hip
CPT/HCPCS: 72110; 72202; 73521

== ENCOUNTER → 2018-10-07 13:35 | Outpatient (CLI) | payer MEDICARE, SELFPAY ==
[2017-05-20 15:37] VITALS: BMI 26.9
[2018-09-30 13:07] VITALS: BMI 24.7
[2018-10-07 14:35] LABS: Absolute Lymphocyte Count 0.77 X10^3/uL (0.83-4.51); Absolute Neutrophil Count 7.6 X10^3/uL (2.0-7.7); Basophil# 0.03 X10^3/uL; Basophil% 0.3 % (0-1); Eosinophil# 0.15 X10^3/uL; Eosinophils% 1.6 % (0-5); Hematocrit 34.8 % (40-54); Hemoglobin 11.5 g/dL (13.0-16.5); Lymphocyte # 0.77 X10^3/ul (4.0); Lymphocyte % 8.2 % (19-41); Mean Corpuscular Hgb 32.9 pg (27.0-32.0); Mean Corpuscular Volume 99.4 fL (80-94); Mean Platelet Vol. 10.2 fl (6.2-12.0); Monocyte# 0.86 X10^3/uL; Monocyte% 9.1 % (0-10); NRBC Flagged by Analyzer 0 % (0-5); Neutrophil # 7.55 X10^3/uL (2.7-7.7); Neutrophil % 80.3 % (47-70); Platelet Count 256 K/mm3 (150-450); RBC Distribution Width CV 13.2 % (11.6-14.6); RBC Distribution Width SD 48.1 fl (35.1-43.9); White Blood Count 9.4 K/mm3 (4.4-11.0)
[2018-10-07 14:41] LABS: Hemoglobin A1c 8.1 % (4.2-6.3)
[2018-10-07 14:46] LABS: Vitamin B12 437 pg/mL (211-911); Vitamin D,25 Hydroxy 14.9 ng/mL (29.95-100.01)
[2018-10-07 15:02] LABS: ALB/GLOB Ratio 0.7 RATIO (0.9-2.4); AST(SGOT) 21 U/L (15-37); Alanine Aminotransfer ALT/SGPT 33 U/L (16-61); Albumin, Serum 3.4 g/dL (3.2-5.0); Alkaline Phosphatase 111 U/L (45-117); Anion Gap 11 (5-15); BUN 91 mg/dL (7-18); BUN/Creat Ratio 9.8 RATIO (10-20); Chloride 104 mmol/L (98-107); Cholesterol 130 mg/dL (200); EST Glomerular Filtration Rate 6 mL/min (>60); Est Glom Filt Rate - Afr Amer 7 mL/min (>60); Ferritin 1246 ng/mL (26-388); Globulin 4.6 g/dL (2.2-4.2); Glucose 184 mg/dL (74-106); High Density Lipoprotein 39 mg/dL; Iron 128 ug/dL (65-175); Iron Binding Capacity,Total 211 ug/dL (250-450); Phosphorus 5.7 mg/dL (2.5-4.9); Potassium 5.9 mmol/L (3.5-5.1); Sodium Level 135 mmol/L (136-145); T4 Free Direct 0.79 ng/dL (0.76-1.46); Thyroid Stim Hormone (TSH) 2.58 uIU/mL (0.358-3.74); Triglycerides 136 mg/dL; Very Low Density Lipoprotein 27 mg/dL (5-40)
== END ==
PROVIDERS: Family Provider Family Medicine; PCP Family Medicine; Referring Provider Family Medicine; Visit Provider Family Medicine
DX: E11.22 Type 2 diabetes mellitus with diabetic chronic kidney disease (principal); N18.6 End stage renal disease; D64.9 Anemia, unspecified; E78.5 Hyperlipidemia, unspecified; E06.3 Autoimmune thyroiditis; E55.9 Vitamin D deficiency, unspecified
CPT/HCPCS: 36415; 80053; 80061; 82306; 82607; 82728; 82746; 83036; 83540; 83550; 84100; 84439; 84443; 85025

== ENCOUNTER 2018-10-08 15:20 | Emergency (ER) | payer MEDICARE, SELFPAY ==
[2017-05-20 15:37] VITALS: BMI 26.9
[2018-09-30 13:07] VITALS: BMI 24.7
[2018-10-08 15:22] VITALS: BP 161/76; PULSE 82; RESP 17; TEMP 36.8; O2SAT 99; BMI 25.5
--- NOTE | 2018-10-08 15:38 | EKG12_ITS ---
Test Reason : DIZZINESS Blood Pressure : / mmHG Vent. Rate : 074 BPM Atrial Rate : 074 BPM P-R Int : 292 ms QRS Dur : 134 ms QT Int : 414 ms P-R-T Axes : 061 025 -51 degrees QTc Int : 459 ms Sinus rhythm with 1st degree A-V block Right bundle branch block T wave abnormality, consider inferior ischemia Abnormal ECG Confirmed by ERIN EDEN, MARIO ([id number]), editorial director JOSELYN MONTGOMERY ([id number]) on 10/11/2018 12:27:50 PM Referred By: Sean Medina Confirmed By:MARIO KHAN MD
--- NOTE | 2018-10-08 15:41 | ED.DCSUM_ITS ---
History of Present Illness Chief Complaint: Dizziness Detail of Chief Complaint: Numerous symptoms please read narrative Informant: Patient, Family Onset: - - Unknown Context: Gradual Onset Timing: Continuous Quality: Abnormal lab tests Location: End-stage renal disease Current Severity: - - Minimal Maximum Severity: - - Fatigue at the end of the day Worsened by: Activity causes increased shortness of breath Relieved by: Less activity Associated Symptoms: Fatigue, shortness of breath, lightheadedness Narrative: Patient is an elderly male with multiple medical problems. He discontinued hemodialysis end of July for numerous reasons. He had blood work yesterday which revealed abnormal lab test. Lab tests from yesterday were reviewed and reveal a BUN of 91, creatinine of 9.36 and a potassium of 5.9. He complains of dizziness which he defines as lightheadedness if he stands rapidly from sitting position or supine position. He denies black or maroon stool. He denies hematemesis. He does report shortness of breath in the hot weather. He denies cough. He denies chest discomfort. He states he was seen by his transition teacher recently and said that his heart is doing surprisingly well . He denies fever, chills or night sweats. He denies weight gain or weight loss. He denies urinary symptoms. He denies orthopnea or PND. He denies leg pain, swelling or discoloration. Prior similar symptoms: Yes Recent Illness/Hospitalization: No - Past Medical History (1) Acute on chronic renal insufficiency Status: Acute (2) Ischemic cardiomyopathy Status: Acute (3) Non-STEMI (non-ST elevated myocardial infarction) Status: Acute (4) Nonrheumatic mitral valve regurgitation Status: Acute (5) Problem with dialysis access Status: Acute (6) Rheumatic tricuspid insufficiency Status: Acute (7) Atherosclerotic heart disease of [place] coronary artery without angina pectoris Status: Chronic Comment: PTCA/HASMUKH to proximal RCA, mid LPL branch of the LCx, in mid LCx in April 2017; angioplasty and PCI to mid and distal RCA in 2014; thrombectomy and PCI to proximal, mid, and distal RCA in 2011; (8) ESRD (end stage renal disease) on dialysis Status: Chronic (9) Essential hypertension Status: Chronic (10) HLD (hyperlipidemia) Status: Chronic (11) Other secondary pulmonary hypertension Status: Chronic Past Medical History - Allergies and Home Meds Allergies/Adverse Reactions: Allergies codeine Allergy (Verified 09/30/18 13:07) Itching Primary Care Physician: Sean Medina MD [Primary Care Provider] - Prior records reviewed: Yes Surgical History: angioplasty, - - Coronary artery stent placement ?7, finger amputations right hand Lives: Alone - He lives with his pet cats and dogs. Smoking Status: Never smoker Alcohol: None - Family History Maternal Family History: Family History (Last Reviewed 09/30/18 @ 13:10 by Mirella Singletary) Mother Breast cancer Myocardial infarction CAD (coronary artery disease) Father Colon cancer Hypertension Myocardial infarction Other Family history of hypertension Family History: Reports: Heart Disease Paternal Family History: Family History (Last Reviewed 09/30/18 @ 13:10 by Mirella Singletary) Mother Breast cancer Myocardial infarction CAD (coronary artery disease) Father Colon cancer Hypertension Myocardial infarction Other Family history of hypertension Family History: Reports: Cancer Review of Systems General: Reports: Malaise. Denies: Chills, Fever, Subjective, Sweats, Weight loss, - Eyes: Denies: Visual changes - bilaterally, Blurred Vision - bilaterally, Diplopia ENT: Denies: Rhinorrhea, Sore throat Cardiovascular: Denies: Chest pain, Palpitations Respiratory: Reports: Dyspnea. Denies: Cough, Sputum, Dyspnea on exertion, Orthopnea, Paroxysmal nocturnal dyspnea, -, - Gastrointestinal: Denies: Abdominal pain, Nausea, Vomiting, Diarrhea, Melena, Hematochezia Genitourinary: Denies: Dysuria, Hematuria, Frequency Musculoskeletal: Denies: Back pain, Extremity Pain Skin: Denies: Rash, Wounds Neurological: Reports: Weakness. Denies: Headache, Parasthesia, Numbness, -, - Hematologic: Denies: Easy bruising, Easy bleeding Allergy: Denies: Uticaria, Swelling of the mouth Physical Exam Vital Signs/Narrative: Vital Signs Temp Pulse Resp BP Pulse Ox 10/08/18 15:22 98.2 F 82 17 161/76 H 99 Inital Vital Signs reviewed: Yes General: Well nourished, Well developed, No Acute Distress Head: Normocephalic, Atraumatic Eyes: Perrl, EOMI ENT: Moist mucous membranes, No rhinorrhea Neck: Supple, Nontender Cardiovascular: Regular rate, Regular rhythm, No murmurs, Normal S1, Normal S2 Respiratory: No distress, CTA bilaterally, Chest nontender Abdomen: Soft, Nontender, Nondistended, Normal bowel sounds, No masses Back: Nontender, Normal Inspection Extremities: Nontender, No edema, - - Left forearm. There is a palpable thrill. Skin: Normal color, No rash Neurological: Alert, Oriented x3, Cranial nerves II-XII grossly intact, Normal Strength, Normal Sensation, Normal Gait Psychological: Normal affect, Normal Mood Diagnostic/Tx/Re-eval Laboratory Results 10/08/18 15:50 Sodium 136 Potassium 5.4 H Chloride 104 Carbon Dioxide 21.0 Anion Gap 11 BUN 92 H Creatinine 9.12 H* Estim Creat Clear Calc 6.54 Est GFR (MDRD) Af Amer 7 L Est GFR (MDRD) Non-Af 6 L BUN/Creatinine Ratio 10.1 Glucose 247 H Calcium 8.0 L Lab values are essentially unchanged from yesterday. Blood sugar is elevated at 247. - EKG Initial EKG Interpretation: Sinus Rhythm - Ventricular rate 71. MD interval 292 ms, first- degree AV block. QRS duration 134 ms. Pattern/morphology consistent with right bundle branch block. QT interval is 414 ms. Computer is reading consider inferior ischemia. The ST T wave changes are secondary to right bundle branch block. Prior: Unchanged - Medical Decision Making EKG was obtained to determine if there is changes consistent with hyperkalemia. Electrode panel was repeated. He attempted to contact Dr. Puente who is a greaser and oiler in [place] since she does not wish to see greaser and oiler locally. Cindi was paged per patient and family request. Dr. Mario is admissions officer. He recommended/requested transfer to [facility] for emergent dialysis and he would make the appropriate arrangements for patient to be dialyzed by their group in the future. Patient is willing to be transferred to [facility] and have emergent dialysis. ED Disposition - Plan for ED Patient: Disposition: [facility] Diagnosis: Hyperkalemia, End-stage renal disease on hemodialysis, Hyperglycemia, Hypertension Referrals: Sean Medina MD [Primary Care Provider] -
[2018-10-08 16:34] LABS: Anion Gap 11 (5-15); BUN 92 mg/dL (7-18); BUN/Creat Ratio 10.1 RATIO (10-20); Chloride 104 mmol/L (98-107); Creatinine, Serum 9.12 mg/dL (0.70-1.30); EST Glomerular Filtration Rate 6 mL/min (>60); Est Glom Filt Rate - Afr Amer 7 mL/min (>60); Estimated Creatinine Clearance 6.54 ml/min; Glucose 247 mg/dL (74-106); Potassium 5.4 mmol/L (3.5-5.1); Sodium Level 136 mmol/L (136-145)
--- NOTE | 2018-10-08 17:44 | NURSING ---
ACCEPTED TO [id number] ROOM [phone] REPORT
[2018-10-08 18:20] VITALS: BP 151/82; PULSE 64; RESP 18; O2SAT 99
[2018-10-08 18:21] VITALS: PULSE 64; RESP 18; O2SAT 98
== END 2018-10-08 18:21 | disposition short-term general hospital (02) ==
PROVIDERS: Emergency Provider Emergency Medicine; Family Provider Family Medicine; PCP Family Medicine
DX: E87.5 Hyperkalemia (principal); I12.0 Hypertensive chronic kidney disease with stage 5 chronic kidney disease or end stage renal disease; N18.6 End stage renal disease; R73.9 Hyperglycemia, unspecified; I44.0 Atrioventricular block, first degree; I25.5 Ischemic cardiomyopathy; I27.29 Other secondary pulmonary hypertension; I25.10 Atherosclerotic heart disease of native coronary artery without angina pectoris; E78.5 Hyperlipidemia, unspecified; Z99.2 Dependence on renal dialysis; Z79.02 Long term (current) use of antithrombotics/antiplatelets; Z79.82 Long term (current) use of aspirin; Z79.899 Other long term (current) drug therapy; I25.2 Old myocardial infarction; Z95.5 Presence of coronary angioplasty implant and graft
CPT/HCPCS: 80048; 93005; 99285; A4216

== ENCOUNTER 2018-10-28 10:10 | Inpatient (IN) | payer MEDICARE, SELFPAY ==
[2017-05-20 15:37] VITALS: BMI 26.9
[2018-10-28] VITALS (25 sets, daily range): BP systolic 114–175; BP diastolic 48–96; PULSE 67–88; RESP 9–26; TEMP 35.9; O2SAT 95–99; BMI 26.2
--- NOTE | 2018-10-28 10:14 | EKG12_ITS ---
Test Reason : CP Blood Pressure : / mmHG Vent. Rate : 085 BPM Atrial Rate : 085 BPM P-R Int : 268 ms QRS Dur : 126 ms QT Int : 414 ms P-R-T Axes : 038 082 084 degrees QTc Int : 492 ms Sinus rhythm with 1st degree A-V block Right bundle branch block T wave abnormality, consider lateral ischemia Abnormal ECG Possible acute posterior ischemia Confirmed by LEILANI ARREOLA ([id number]), school photograph editor KISHORE QUINTERO ([id number]) on 11/01/2018 1:24:22 PM Referred By: MARLEY Confirmed By:LEILANI ARREOLA
--- NOTE | 2018-10-28 10:14 | RAD_ITS ---
STUDY: X-RAY CHEST REASON FOR EXAM: Male, 73 years old. Sudden onset of left-sided chest pain. TECHNIQUE: Single AP portable view of the chest. COMPARISON: Comparison is made with prior examination of April 27, 2017. FINDINGS: EKG electrodes are seen. The previously seen right-sided double lumen catheter has been removed. Persistent blunting of the right costophrenic angle with mild increased markings at the right lung base suggestive of atelectasis. There is mild cardiac enlargement. Normal mediastinum and evelio. Normal visualized pulmonary arteries. There is atherosclerotic tortuosity of the aortic arch and descending thoracic aorta. There are diffuse degenerative changes of the visualized thoracic spine. Normal visualized ribs, clavicles, and shoulders. There is no demonstrated abnormality of the visualized soft tissue structures of the upper abdomen. RAD/Chest 1 View (Portable) IMPRESSION: Blunting of the right costophrenic angle with mild increased markings at the right lung base suggestive of atelectasis. Electronically Signed: Mando Zamorano, at 10:37 EDT , Service support ,
--- NOTE | 2018-10-28 10:21 | NURSING ---
DR ARREOLA PAGED
--- NOTE | 2018-10-28 10:23 | ED.DCSUM_ITS ---
History of Present Illness Chief Complaint: Chest Pain Informant: Patient Onset: Today, Hours Current Severity: Mild Narrative: History of coronary artery disease with stents, prior LA, renal failure on dialysis, recently dialysis resumed, right hand amputations reports that he began having chest pain a few hours ago history of CAD heart attack in the past not sure when last stents were 3 years ago is also on dialysis but he stopped dialysis 2 months ago this was sick he was sick of being dialyzed so than 2 weeks ago he went to [facility] to get readmitted may start his dialysis again, he was also dialyzed yesterday, he was put on new medications he is not sure what they were at one point he was on what sounds like aspirin and Plavix he is not sure if he is taking that, he has had no orthopnea PND no leg edema no history of DVT or PE Past Medical History - Allergies and Home Meds Allergies/Adverse Reactions: Allergies codeine Allergy (Verified 10/28/18 10:15) Itching Past Medical History: - Surgical History: angioplasty, - - Coronary artery stent placement ?7, finger amputations right hand Smoking Status: Never smoker - Family History Maternal Family History: Family History (Last Reviewed 09/30/18 @ 13:10 by Mirella Singletary) Mother Breast cancer Myocardial infarction CAD (coronary artery disease) Father Colon cancer Hypertension Myocardial infarction Other Family history of hypertension Family History: Reports: Heart Disease Paternal Family History: Family History (Last Reviewed 09/30/18 @ 13:10 by Mirella Singletary) Mother Breast cancer Myocardial infarction CAD (coronary artery disease) Father Colon cancer Hypertension Myocardial infarction Other Family history of hypertension Family History: Reports: Cancer Review of Systems General: Denies: Chills, Fever, Sweats Eyes: Denies: Visual changes - bilaterally, Diplopia ENT: Denies: Rhinorrhea, Sore throat Cardiovascular: Reports: Chest pain. Denies: Palpitations Respiratory: Denies: Dyspnea, Cough, Dyspnea on exertion Gastrointestinal: Denies: Abdominal pain, Nausea, Vomiting, Diarrhea, Melena, Hematochezia Genitourinary: Denies: Dysuria, Hematuria, Frequency Musculoskeletal: Denies: Back pain, Extremity Pain Skin: Denies: Rash, Wounds Neurological: Denies: Headache, Weakness, Numbness Physical Exam Vital Signs/Narrative: Vital Signs Temp Pulse Resp BP Pulse Ox 10/28/18 10:10 96.7 F L 83 26 H 175/96 H 99 General: Well nourished, Well developed, No Acute Distress Head: Normocephalic, Atraumatic Eyes: Perrl, EOMI ENT: Moist mucous membranes, No rhinorrhea Neck: Supple, Nontender Cardiovascular: Regular rate, Regular rhythm, No murmurs Respiratory: No distress, CTA bilaterally, Chest nontender Abdomen: Soft, Nontender, Nondistended, Normal bowel sounds Back: Nontender, Normal Inspection Extremities: Nontender, No edema, - Skin: Normal color, No rash Neurological: Alert, Oriented x3, Cranial nerves II-XII grossly intact, Normal Strength, Normal Sensation Psychological: Normal affect, Normal Mood Diagnostic/Tx/Re-eval - Medical Decision Making all the above and his history EKG is obtained that shows an old right bundle there are now flipped T waves in V2 through V5 with some ST segment depression, he is resting comfortably in the bed vital signs are within normal range We spoke with Dr. 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 Luna who came down to evaluate the patient in the emergency department and has determined with consultation with patient to take the patient directly to [facility] for further management screening labs and other studies are pending see those results will be reviewed by the admitting team Admit stable Final impression Chest pain, non-STEMI, history of CAD cardiac stents, renal failure on dialysis ED Disposition - Plan for ED Patient: Diagnosis: Non-STEMI (non-ST elevated myocardial infarction)
[2018-10-28] MEDS: Ondansetron 4 MG/2 ML Vial IV (10:26)
[2018-10-28] MEDS: morphine 8 MG/ML Syringe IV (10:26)
[2018-10-28 10:34] LABS: Absolute Lymphocyte Count 1.29 X10^3/uL (0.83-4.51); Absolute Neutrophil Count 5.5 X10^3/uL (2.0-7.7); Basophil# 0.02 X10^3/uL; Basophil% 0.3 % (0-1); Eosinophil# 0.11 X10^3/uL; Eosinophils% 1.4 % (0-5); Hematocrit 36.7 % (40-54); Hemoglobin 12.3 g/dL (13.0-16.5); Lymphocyte # 1.29 X10^3/ul (4.0); Lymphocyte % 16.2 % (19-41); Mean Corp Hgb Conc 33.5 g/dL (32-36); Mean Corpuscular Hgb 33.9 pg (27.0-32.0); Mean Corpuscular Volume 101.1 fL (80-94); Mean Platelet Vol. 9.8 fl (6.2-12.0); Monocyte% 12.6 % (0-10); NRBC Flagged by Analyzer 0 % (0-5); Platelet Count 296 K/mm3 (150-450); RBC Distribution Width CV 14.6 % (11.6-14.6); RBC Distribution Width SD 54.3 fl (35.1-43.9); Red Blood Count 3.63 M/mm3 (4.6-6.2)
[2018-10-28] MEDS: Aspirin 81 MG TAB.CHEW 324 MG PO (10:34)
--- NOTE | 2018-10-28 10:34 | ECHOL_ITS ---
Reason For Study: Chest pain Procedure This was a limited 2D transthoracic echocardiogram. Exam performed portable in ED. Left Ventricle Normal size and thickness. The estimated ejection fraction is 45 %. Posterior-Basal: Severely hypokinetic. Infero-Basal: Severely Hypokinetic. Basal inferoseptal: Akinetic. Right Ventricle Normal size and thickness. Normal systolic function. Atria Normal left atrium. Normal right atrium. Mitral Valve The mitral valve is structurally normal. No prolapse or stenosis seen. Trivial mitral valve insufficiency. Tricuspid Valve Unable to estimate RV systolic pressure due to insufficient tricuspid regurgitant envelope. Pericardium/Pleural No pericardial effusion. MMode/2D Measurements & Calculations LVIDd: 4.4 cm IVSd: 1.1 cm Ao root diam: 3.4 cm LVIDs: 3.3 cm LVPWd: 1.1 cm FS: 24.3 % LA dimension(2D): 2.5 cm Interpretation Summary The estimated ejection fraction is 45 %. Posterior-Basal: Severely hypokinetic. Infero-Basal: Severely Hypokinetic. Compared to echo report dated 04/23/2017, posterior and inferior hypokinesis appear to be worse. Anteroseptal corcoran have normalized. The study was technically limited. Ordering Physician: Gage Ware Performed By: Alyssia Saeed RDCS
[2018-10-28] MEDS: Nitroglycerin SL (ED/IMG/CATH) 0.4 MG TABLET SUBLINGUAL (10:35)
[2018-10-28 10:50] LABS: Anion Gap 8 (5-15); BUN 27 mg/dL (7-18); BUN/Creat Ratio 5.6 RATIO (10-20); Calcium,Total 8.7 mg/dL (8.5-10.1); Chloride 96 mmol/L (98-107); Creatinine, Serum 4.83 mg/dL (0.70-1.30); EST Glomerular Filtration Rate 13 mL/min (>60); Est Glom Filt Rate - Afr Amer 15 mL/min (>60); Estimated Creatinine Clearance 12.35 ml/min; Glucose 160 mg/dL (74-106); Potassium 3.9 mmol/L (3.5-5.1); Sodium Level 136 mmol/L (136-145)
--- NOTE | 2018-10-28 10:54 | NURSING ---
[facility]ICUT [facility]ATOR [facility]
[2018-10-28 11:05] LABS: BNP,B-Type NATRIURETIC PEPTIDE 460.3 pg/mL (0-100)
--- NOTE | 2018-10-28 11:29 | ED.RN ---
PT GIVEN 4000 UNITS OF HEPARIN IV AND 180 MG BRILINTA PO PRIOR TO TRANSFER TO ADMITTING MANAGER PER VERBAL ORDER DR. ARREOLA.
--- NOTE | 2018-10-28 12:26 | PCM.HP.STD ---
Problem List (1) CAD (coronary artery disease) Status: Acute (2) Essential hypertension Status: Chronic (3) ESRD (end stage renal disease) on dialysis Status: Chronic (4) Ischemic cardiomyopathy Status: Acute (5) Paroxysmal atrial fibrillation Status: Chronic (6) Type II diabetes mellitus Status: Chronic Qualifiers: Diabetes mellitus jail insulin use: without jail use Diabetes mellitus complication status: with circulatory complication Diabetes mellitus complication detail: with other circulatory complications Qualified Code(s): E11.59 - Type 2 diabetes mellitus with other circulatory complications (7) Hyperlipidemia associated with type 2 diabetes mellitus Status: Chronic (8) Non-STEMI (non-ST elevated myocardial infarction) Status: Acute (9) S/P PTCA (percutaneous transluminal coronary angioplasty) Status: Chronic Comment: thrombectomy with PTCA with HASMUKH to proximal, mid and distal RCA 03/03, PTCA with stenting to mid & distal RCA 07/05, PTCA of proximal LAD 07/05 (10) HLD (hyperlipidemia) Status: Chronic Qualifiers: Hyperlipidemia type: unspecified Qualified Code(s): E78.5 - Hyperlipidemia, unspecified History of Present Illness Date of Admission: 10/28/18 Chief Complaint: Chest pain The patient is a 73 year old M with a PMH as below who presents with chest pain. He states that the pain started today several hours ago, without palpitations but it did radiate to his left arm. No shortness of breath, lightheadedness, dizziness. In the ER he was having an EKG which demonstrated an old right bundle branch block with flipped T waves in V2 through V5 with some ST segment depressions. The concern was for a posterior [place] and therefore an emergent echo was obtained which showed hypokinesis in the inferior and posterior aspect of the heart and he was taken directly to the [facility]. He was found to have occlusion of the left circumflex with a mid RCA in-stent restenosis, both of these were stented in the [facility] and he was transferred to the ICU in stable condition for further monitoring. He also states that he has a history of end-stage renal disease and had decided about 2 months ago that he did not want anymore dialysis, partly because of the hassle and partly because he did not like the dialysis facility he was at. He presented to [facility] about 2 weeks ago because he was told that he had toxins building up in his bloodstream, with his most recent dialysis treatment being yesterday. 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) Paroxysmal atrial fibrillation (Chronic) Atherosclerotic heart disease of [place] coronary artery without angina pectoris (Chronic) PTCA/HASMUKH to proximal RCA, mid LPL branch of the LCx, in mid LCx in April 2017; angioplasty and PCI to mid and distal RCA in 2014; thrombectomy and PCI to proximal, mid, and distal RCA in 2011; Type II diabetes mellitus (Chronic) Hyperlipidemia associated with type 2 diabetes mellitus (Chronic) S/P PTCA (percutaneous transluminal coronary angioplasty) (Chronic) thrombectomy with PTCA with HASMUKH to proximal, mid and distal RCA 03/03, PTCA with stenting to mid & distal RCA 07/05, PTCA of proximal LAD 07/05 HLD (hyperlipidemia) (Chronic) Medical History: Medical History (Last Reviewed 09/30/18 @ 13:10 by Mirella Singletary) Essential hypertension (Chronic) I10 Old myocardial infarction (Chronic) I25.2 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, 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) Z79.899 Antihyperlipidemic Family history of hypertension (Chronic) Z82.49 Other secondary pulmonary hypertension (Chronic) I27.29 Subendocardial ischemia (Chronic) I24.8 Ischemic cardiomyopathy (Acute) I25.5 Nonrheumatic mitral valve regurgitation (Acute) I34.0 Rheumatic tricuspid insufficiency (Acute) I07.1 Paroxysmal atrial fibrillation (Chronic) I48.0 Atherosclerotic heart disease of [place] coronary artery without angina pectoris (Chronic) I25.10 PTCA/HASMUKH to proximal RCA, mid LPL branch of the LCx, in mid LCx in April 2017; angioplasty and PCI to mid and distal RCA in 2014; thrombectomy and PCI to proximal, mid, and distal RCA in 2011; Type II diabetes mellitus (Chronic) E11.9 Hyperlipidemia associated with type 2 diabetes mellitus (Chronic) E11.69, E78.5 Uncontrollable nausea and vomiting (Acute) R11.2 Left flank pain (Acute) R10.9 Non-STEMI (non-ST elevated myocardial infarction) (Acute) I21.4 Unstable angina (Acute) HLD (hyperlipidemia) (Chronic) E78.5 Acute on chronic renal insufficiency (Acute) N28.9, N18.9 Hyperkalemia (Acute) E87.5 Coronary artery disease (Inactive) I25.10 Pneumonia (Inactive) J18.9 Allergies codeine Allergy (Verified 10/28/18 10:15) Itching Home Medications: Ambulatory Orders Medication Instructions Recorded clopidogrel 75 mg tablet 75 mg PO QHS #90 tab 03/29/18 furosemide 80 mg tablet 80 mg PO BID tab 03/29/18 lorazepam 0.5 mg tablet 0.5 mg PO QHS PRN 03/29/18 aspirin 81 mg tablet,delayed 81 mg PO DAILY 09/30/18 release linagliptin 5 mg tablet 5 mg PO QHS PRN 09/30/18 pravastatin 80 mg tablet 80 mg PO DAILY #30 tab 09/30/18 sacubitril 24 mg-valsartan 26 mg 1 tab PO BID #60 tab 09/30/18 tablet Surgical History: Surgical History (Last Reviewed 09/30/18 @ 13:10 by Mirella Singletary) S/P PTCA (percutaneous transluminal coronary angioplasty) (Chronic) Z98.61 thrombectomy with PTCA with HASMUKH to proximal, mid and distal RCA 03/03, PTCA with stenting to mid & distal RCA 07/05, PTCA of proximal LAD 07/05 Presence of surgically created arteriovenous shunt for hemodialysis Onset Date: ~05/2017 Z99.2 fistulogram 09/07 Surgical History: angioplasty, - - Coronary artery stent placement ?7, finger amputations right hand Psychiatric History: No pertinent psych hx Smoking Status: Never smoker Alcohol: None Drugs: None - *Family History Maternal Family History: Family History (Last Reviewed 09/30/18 @ 13:10 by Mirella Singletary) Mother Breast cancer Myocardial infarction CAD (coronary artery disease) Father Colon cancer Hypertension Myocardial infarction Other Family history of hypertension History Items: Heart Disease Paternal Family History: Family History (Last Reviewed 09/30/18 @ 13:10 by Mirella Singletary) Mother Breast cancer Myocardial infarction CAD (coronary artery disease) Father Colon cancer Hypertension Myocardial infarction Other Family history of hypertension History Items: Cancer Review of Systems Constitutional: Denies: Chills, Fever, Weight Change HEENT: Denies: Head Aches, Sinus Congestion, Sinus Drainage Cardiovascular: Reports: Chest Pain. Denies: Light Headedness, Palpitations, Syncope Respiratory: Denies: Cough, Shortness of breath at rest, Sputum production Gastrointestinal: Denies: Abdominal Pain, Nausea, Vomiting Genitourinary: Denies: Dysuria Musculoskeletal: Denies: Joint Pain, Joint Tenderness Skin: Denies: Rash, Wounds Neurological: Denies: Numbness, Tingling, Focal weakness Psychiatric: Denies: Anxiety, Depression Hematologic/ Lymphatic: Denies: Easy Bruising, Easy Bleeding VTE Information - Inpt Only VTE Present on Admission: No Patient Problems: Active and Suspected Problems (Last Reviewed 09/30/18 @ 13:10 by Mirella Singletary) CAD (coronary artery disease) (Acute) Non-STEMI (non-ST elevated myocardial infarction) (Acute) - Physical Exam General: Alert, Oriented x3, Cooperative, No apparent distress HEENT: Atraumatic, PERRLA, EOMI, Normocephalic Oral: Moist Mucosa Neck: Supple, No JVD Lungs: Clear to auscultation, Normal air movement, No rhonchi, No wheeze, No rales, Diminished Cardiovascular: Regular rate, Regular Rhythm, Normal S1, Normal S2, No murmurs Abdomen: Soft, Non Tender, Non-Distended, No Hepato-splenomegaly Extremities: No edema, Capillary Refill Less than 3 Seconds, - - Fistula in left forearm Skin: No rashes, No breakdown, Incision - Dressing intact Neurological: Neuro grossly intact, Sensory exam intact to light touch and pain Psych/Mental Status: Normal Affect, Appropriate Vital Signs Temp Pulse Resp BP Pulse Ox 96.7 F L 88 18 147/84 H 98 10/28/18 10:10 10/28/18 11:20 10/28/18 11:20 10/28/18 11:20 10/28/18 11:20 Oxygen Flow Rate (L/min) 2 Oxygen Delivery Method Nasal Cannula Weight: 167 lb 5.294 oz Body Mass Index (BMI) 26.2 Finger Stick Blood Glucose 123 Laboratory Tests Past 24 Hrs 10/28/18 10/28/18 10/28/18 10:20 10:20 10:20 WBC 8.0 RBC 3.63 L Hgb 12.3 L Hct 36.7 L MCV 101.1 H MCH 33.9 H MCHC 33.5 RDW Std Deviation 54.3 H RDW Coeff of Kirsten 14.6 Plt Count 296 MPV 9.8 Immature Gran % (Auto) 0.500 Neut % (Auto) 69.0 Lymph % (Auto) 16.2 L Yancey % (Auto) 12.6 H Eos % (Auto) 1.4 Baso % (Auto) 0.3 Absolute Neuts (auto) 5.5 Absolute Lymphs (auto) 1.29 Nucleated RBC % 0 Sodium 136 Potassium 3.9 Chloride 96 L Carbon Dioxide 32.0 Anion Gap 8 BUN 27 H Creatinine 4.83 H Estim Creat Clear Calc 12.35 Est GFR (MDRD) Af Amer 15 L Est GFR (MDRD) Non-Af 13 L BUN/Creatinine Ratio 5.6 L Glucose 160 H Calcium 8.7 Troponin I 0.474 H B-Natriuretic Peptide 460.3 H Assessment/Plan All Active Problems (Last Reviewed 09/30/18 @ 13:10 by Mirella Singletary) CAD (coronary artery disease) (Acute) Problem with dialysis access (Acute) Obesity (Acute) Ischemic cardiomyopathy (Acute) Nonrheumatic mitral valve regurgitation (Acute) Rheumatic tricuspid insufficiency (Acute) Uncontrollable nausea and vomiting (Acute) Left flank pain (Acute) Non-STEMI (non-ST elevated myocardial infarction) (Acute) Unstable angina (Acute) Acute on chronic renal insufficiency (Acute) Hyperkalemia (Acute) 1. NSTEMI s/p cardiac cath with stent placement to the left circumflex and the RCA/CAD with ischemic cardiomyopathy/paroxysmal A. fib/HTN/HLD -Underwent cardiac cath and had placement of stents -He was previously on aspirin and Plavix but he is not certain how often and how regular he is been taking him, he will be continued on aspirin and Brilinta -Continue with statins -Blood pressure appears to be stable he was started on Coreg by cardiology -Nitro drip per cardiology no need to titrate troponins -Appreciate cardiology assistance 2. DM 2/end-stage renal disease -Uncontrolled with A1c of 8.1 on 10/07/2018 -We will place him on a sliding scale insulin and monitor with Accu-Cheks AC at bedtime -He is supposedly on linagliptin at home -He did stop dialysis 2 months ago and then restarted with [facility] 2 weeks ago. Will consult for dialysis today after his dye load, he states that tomorrow he was supposed to go to [place] to have cannulization of his fistulas and he was not supposed to have dialysis tomorrow DVT: SCDs Code Visit OBSV E&M: [id number] Initial observation care L3
--- NOTE | 2018-10-28 12:29 | CL.I_ITS ---
Patient Name: PAXTON CRUZ Study Date: 10/28/2018 Performing: Saroj Luna MD Ht: 66.92 inches 170 cm : 1945 Wt: 167.55 lbs 76 kg Age: 73 Gender: male BSA: 1.87 PROCEDURE(S) PERFORMED IY59-OJM/COR/LV HM73-RXG W OR WO PTCA, SINGLE CORONARY ARTERY HV83-RPE W OR WO PTCA, SINGLE CORONARY ARTERY CLINICAL PROFILE AND CO-MORBIDITIES Patient presents with NSTEMI for urgent cardiac cath Indications: ACS <= 24 hrs, Stable Known CAD Heart Failure: NYHA Class: 1, Newly Diagnosed: Yes, Heart Failure Type: Systolic Stress/Imaging Stress/Image Study Performed: No Angina Classification Anginal Classification w/in 2 Weeks: No symptoms CAD Presentations: Unstable angina. Non-STEMI. Symptom onset Date/Time: 10/28/2018 Time Not Availab le Comorbidities/Risk Factors: Hypertension Dyslipidemia Prior PCI Peripheral Arterial Disease Diabetes Mellitus: Diabetes Therapy: Oral CONCLUSIONS Segmented LV systolic dysfunction- Mild Double vessel CAD of the LCX and RCA Successful PTCA/HASMUKH proximal LCX with a 3.0 x 16 Promus Synergy, 85%-->0%, no dissection. Successful PTCA/HASMUKH mid RCA ISR with a 2.5 x 10 Angiosculpt, followed with a 3.0 x 38 Promus Synergy, post dilated with a 3.0 and 3.5 x 12 NC balloon; 85%-->0%, no dissection. RECOMMENDATIONS Referred for immediate PCI Highly recommend quitting all tobacco products Follow up with primary catalytic case operator Risk factor modification ASA Indefinitley Plavix for at least 12 months Routine post interventional care Refer for Outpatient Cardiac Rehab Manual sheath removal per protocol Follow up with Dr. Dan Manual sheath removal. DESCRIPTION OF PROCEDURE The patient arrived to the procedure lab. The risks and benefits of the procedure as well as a full d escription of our services here and lack of surgical backup were fully explained to the patient and/o r their significant other prior to the catheterization. The Timeout was completed, verifying the kecia ect patient and procedure. The patient's procedural site was prepped and draped in the usual fashion. Local anesthetic was given subcutaneously to right groin region with Lidocaine 2%. Using a modified Seldinger technique, arterial access was obtained via the right femoral artery, a 6Fr 45cm sheath was inserted.. Left Coronary Artery selective angiography was performed in multiple views using a 4 Fr. JL5 catheter. Right Coronary Artery selective angiography was then performed in multiple views using a 4 Fr. 3DRC catheter. Left Coronary Artery selective angiography was performed in multiple views us ing a 4 Fr. JL4 catheter. Left Ventriculography was performed in BHANDARI projection using a 4 Fr. Pigtail catheterThe images were reviewed and options discussed. A decision was then made to proce ed with an Intervention, IVUS or other adjunct procedure. EBU 3.75 Guide catheter was inserted and engaged into the LCA. runthrough Guide wire was advanced to the 1st OM. 2.0x12 emerge Balloon catheter was advanced across lesion in the circumflex, proximal . PTCA balloon inflated at 8 atms for 8 secs. PTCA balloon inflated at 6 atms for 6 secs. Angiogram p erformed post balloon dilatation. 3.0x16 Synergy Drug Eluting stent was advanced across the lesion in the circumflex, proximal. HS II Guide catheter was inserted and engaged into the RCA. runthrough Torsten de wire was advanced to the PDA. 2.0x12 Emerge Balloon catheter was advanced across lesion in the rig ht coronary, mid. PTCA balloon inflated at 8 atms for 8 secs. PTCA balloon inflated at 8 atms for 7 s ecs. PTCA balloon inflated at 10 atms for 8 secs. PTCA balloon inflated at 10 atms for 7 secs. angios culpt 2.5 x 10 Cutting balloon catheter was advanced to the lesion in the right coronary, mid. angios culpt 2.5 x 10 Cutting balloon catheter was advanced to the lesion in the right coronary, mid. 3.0x38 Synergy Drug Eluting stent was advanced across the lesion in the right coronary, mid. 3.0 x 12 NC Emerge Balloon catheter was inserted post stent. PTCA balloon inflated at 10 atms for 5 secs . PTCA balloon inflated at 10 atms for 6 secs. PTCA balloon inflated at 14 atms for 14 secs. PTCA bal loon inflated at 16 atms for 17 secs. PTCA balloon inflated at 16 atms for 7 secs. PTCA balloon infla paxton at 16 atms for 11 secs. 3.5x12 NC Emerge Balloon catheter was inserted post stent into mid RCA. P TCA balloon inflated at 8 atms for 11 secs. PTCA balloon inflated at 10 atms for 12 secs. PTCA balloo n inflated at 10 atms for 8 secs. PTCA balloon inflated at 10 atms for 9 secs. Angiogram performed po st stent deployment. right groin angiogram performed. ^FreeText^ Arterial sheath was exchanged for a 6 Fr, 11cm Sheath. The arterial sheath was sutured in place and capped CORONARY ANGIOGRAPHY DOMINANCE: Right Dominant LEFT HEART ASSESSMENT Left Ventricular Ejection Fraction: by LV Gram 50 % Depressed Left Ventricular systolic function Inferior Mid Hypokinesis - Mild LEFT MAIN: Angiographically normal LEFT ANTERIOR DESCENDING ARTERY: PROX LAD: Previously placed stent is patent DISTAL LAD: Moderate luminal irregularities up to 50% CIRCUMFLEX ARTERY: PROX CIRC: 85 % Stenosis DISTAL CIRC: Previously placed stent is patent RIGHT CORONARY ARTERY: MID RCA: Previously placed stent has an instent 85 % restenosis INTERVENTION INFORMATION LESION SITE: Circumflex (Proximal) Lesion Complexity: High/C, lesion at bifurcation: No, thrombus present: Yes, lesion length: 16 mm, cu lprit lesion: Yes Pre Stenosis: 85 % Pre intervention JAMILA flow: 3 PROCEDURE: Drug Eluting Stent with pre dilatation. Post Stenosis: 0 % Post intervention JAMILA flow: 3 Lesion Devices: Medtronic 6 Fr EBU3.75 100cm Guide Catheter Terumo .014 Runthrough Extra Floppy 180cm straight Torsten Sci EMERGE MR 2.00x12 BALLOON Torsten Sci Synergy MR HASMUKH 3.00x16 LESION SITE: RCA (Mid) Lesion Complexity: High/C, lesion at bifurcation: No, thrombus present: No, lesion length: 38 mm, cul prit lesion: No Pre Stenosis: 85 % Pre intervention JAMILA flow: 3 PROCEDURE: Drug Eluting Stent with pre and post dilatation Post Stenosis: 0 % Post intervention JAMILA flow: 3 Lesion Devices: Terumo .014 Runthrough Extra Floppy 180cm straight Torsten Sci EMERGE MR 2.00x12 BALLOON Medtronic 6 Fr HSII 100cm Guide Catheter [facility] Angiosculpt RX 2.5x10 Scoring Balloon Torsten Sci Synergy MR HASMUKH 3.00x38 Torsten Sci NC EMERGE MR 3.00x12 BALLOON Torsten Sci NC EMERGE MR 3.50x12 BALLOON COMPLICATIONS No Complications PROCEDURE MEDICATIONS Oxygen: 2 L/min via nasal cannula Heparin 6000 unit(s) IV 10/28/2018 11:25:06 Nitro 200 mcg IC 10/28/2018 11:32:44 Nitro 200 mcg IC 10/28/2018 11:32:44 Nitro glycerin 25mg / 250ml D5W @ 5 mcg/min IV started 10/28/2018 12:19:12 IV Bolus: .45 NaCl 100 ml total 10/28/2018 12:18:45 SUMMARY OF HEMODYNAMIC DATA Time AIR REST ECG 11:15:10 LV 160/-19, 5 12:03:02 LV 159/-21, 4 12:03:08 LVp 165/-23, 8 12:03:14 AOp 155/66 (101) 12:03:20 12:26:37 Signed By Saroj Luna MD On 10/28/2018 12:28:38 Saroj Luna MD
--- NOTE | 2018-10-28 13:00 | EKG12_ITS ---
Test Reason : AM EKG Blood Pressure : / mmHG Vent. Rate : 063 BPM Atrial Rate : 063 BPM P-R Int : 290 ms QRS Dur : 136 ms QT Int : 474 ms P-R-T Axes : 061 021 267 degrees QTc Int : 485 ms Sinus rhythm with 1st degree A-V block Right bundle branch block T wave abnormality, consider inferior ischemia Abnormal ECG When compared with ECG of 28-OCT-2018 12:41, MANUAL COMPARISON REQUIRED, DATA IS UNCONFIRMED Confirmed by ARABELLA EDEN, NICKI ([id number]), editorial assistant KISHORE QUINTERO ([id number]) on 11/09/2018 2:00:11 PM Referred By: ELBA Confirmed By:AHMET BELL MD
[2018-10-28] MEDS: Carvedilol 3.125 MG TABLET PO (22:06)
[2018-10-28] MEDS: TICAGRELOR 90 MG TABLET PO (22:06)
[2018-10-28] MEDS: Pravastatin 40 MG Tablet PO (22:06)
[2018-10-29] VITALS (20 sets, daily range): BP systolic 117–157; BP diastolic 45–89; PULSE 64–95; RESP 12–22; TEMP 36.5–37.2; O2SAT 94–100; BMI 26.2
[2018-10-29 07:05] LABS: ACT Activated Clotting Time 191 sec (74-137)
[2018-10-29 07:26] LABS: ACT Activated Clotting Time 241 sec (74-137)
[2018-10-29] MEDS: TICAGRELOR 90 MG TABLET PO ×2 (08:07→21:32)
[2018-10-29] MEDS: Lidocaine/Prilocaine HCl 5 GM Tube TOPICAL (08:07)
[2018-10-29] MEDS: Aspirin E.C. 81 MG Tablet PO (08:07)
--- NOTE | 2018-10-29 08:18 | CRPHASE1 ---
Patient Communication PHII Cardiac Rehab Discussed with Patient:: No - PT STATED THAT BETWEEN DIALYSIS AND EVERYTHNIG ELSE, HAS NO INTEREST IN CR Guide to Cardiac Rehab Given to Patient:: Yes Cardiac Rehab Facility Choice List Given to Patient:: Yes Choice Program [facility] CR PHII:: Communication Given to CR, Refer to Sound Clips Risk Factors/Lifestyle Hx Diabetes Mellitus Type 2: Yes Hx Dyslipidemia: Yes Hx Obesity: Yes Height: 5 ft 7 in Weight:: 167 lb BMI: 26.2 Family History: Family History (Last Reviewed 09/30/18 @ 13:10 by Mirella Singletary) Mother Breast cancer Myocardial infarction CAD (coronary artery disease) Father Colon cancer Hypertension Myocardial infarction Other Family history of hypertension Past Cardiac Illness: Coronary Artery Disease, Myocardial Infarction Medical/Surgical History CAD:: Yes Diabetes Type II:: Yes Hypertension:: Yes Dyslipidemia:: Yes Renal:: Yes - END STAGE, ON DIALYSIS Cardiac Rehabilitation Info Cardiac Rehabilitation Program Information: Cardiac Rehabilitation is important for patients like you who are recovering from a heart problem. Cardiac rehabilitation programs are recognized as integral to the continued care of the patient with coronary heart disease. The cardiac rehabilitation program is designed to optimize a patient's physical, psychological, and social functioning. Health child daycare worker work in cardiac rehabilitation programs and assist you with getting the treatments you need to get stronger and healthier - like exercise, healthy eating habits, and medications. Cardiac rehabilitation has been show to help people with heart problems live longer and have better life enjoyment than people who do not go to cardiac rehabilitation. Please contact the Cardiac Rehabilitation Program at [facility] at in two weeks if you have not heard from them.
--- NOTE | 2018-10-29 08:21 | CRPH1.INSTRU ---
General Education CAD and cardiac anatomy and function:: Not instructed Explanation of diagnoses and procedures:: Not instructed Sign/Symptoms of UT:: Not instructed Antiplatelet therapy: Needs reinforcement, Not instructed Proper use of NTG-SL: Not instructed Emergency procedures and activation of EMS: Not instructed Compliance of all prescribed medications: Not instructed - PT DECLINES CR AT THIS TIME DUE TO DIALYSIS AND EVERYTHING ELSE Smoking Nicotine/Smoking Response Code:: Not instructed Dyslipidemia Dyslipidemia Response Code:: Not instructed Overweight/Obesity Overweight/Obesity:: Not instructed Hypertension Hypertension:: Not instructed Heart Disease Heart Disease Response Code:: Not instructed Diabetes Diabetes:: Not instructed Metabolic Syndrome Metabolic Syndrome Response Code:: Not instructed Sedentary Sedentary Response Code:: Not instructed Stress Stress Response Code:: Not instructed
--- NOTE | 2018-10-29 08:47 | PN.CARD_ITS ---
Subjectve: The patient is awake and alert. He denies ongoing chest discomfort. He denies any acute shortness of breath or dyspnea. He states he feels better now than he did prior to his arrival and his subsequent PCI. Objective: Vital Signs Temp Pulse Resp BP Pulse Ox 98.0 F 66 19 H 144/89 H 97 10/29/18 07:00 10/29/18 08:00 10/29/18 08:00 10/29/18 08:00 10/29/18 08:00 Oxygen Flow Rate (L/min) 2 Oxygen Delivery Method Room Air Weight: 167 lb Body Mass Index (BMI) 26.2 Finger Stick Blood Glucose 123 Intake and Output for Last 24 Hours 10/27/18 10/28/18 10/29/18 23:59 23:59 23:59 Intake Total 425 / 425 100 / 100 Output Total 200 / 200 125 / 125 Balance 225 / 225 -25 / -25 General: Awake, Alert, Oriented x 3, Cooperative, No Acute Distress HEENT: Atraumatic, Normocephalic, PERRL, EOMI, Sclera Non Icteric Oral: Moist Mucosa Neck: Supple, Good ROM, No JVD Lungs: Clear to auscultation Cardiovascular: Regular Rhythm, Normal S1, Normal S2 Vascular: Normal Femoral Pulses Abdomen: Bowel Sounds Present, Soft, Non Tender Extremities: No Cyanosis, No Clubbing, No edema Psych/Mental Status: Appropriate 10/28/18 10:20: WBC 8.0, RBC 3.63 L, Hgb 12.3 L, Hct 36.7 L, MCV 101.1 H, MCH 33.9 H, MCHC 33.5, Plt Count 296, MPV 9.8, Immature Gran % (Auto) 0.500, Neut % (Auto) 69.0, Lymph % (Auto) 16.2 L, Grady % (Auto) 12.6 H, Eos % (Auto) 1.4, Baso % (Auto) 0.3, Absolute Neuts (auto) 5.5, Nucleated RBC % 0 10/28/18 10:20: Sodium 136, Potassium 3.9, Chloride 96 L, Carbon Dioxide 32.0, Anion Gap 8, BUN 27 H, Creatinine 4.83 H, Est GFR (MDRD) Af Amer 15 L, Est GFR (MDRD) Non-Af 13 L, BUN/Creatinine Ratio 5.6 L, Glucose 160 H, Calcium 8.7, Troponin I 0.474 H 10/28/18 10:20: B-Natriuretic Peptide 460.3 H Rhythm: Sinus rhythm EKG: Sinus rhythm; right IVCD; previous ST segment T wave changes appear to be resolving towards baseline Medical Necessity - Tobacco Use Smoking Status: Never smoker Assessment/Plan 1. Acute coronary syndrome The patient presented with an acute coronary syndrome. He is undergone noninvasive and invasive evaluation. He is also undergone PCI. At the present time he appears to be symptomatically improved. His vital signs appear stable. His ECG appears to be resolving with respect to the previous ST and T wave changes. At the present time he will continue to be monitored. He will continue medical therapy with advancement of medications as tolerated. He will continue inpatient and outpatient follow-up in the future as deemed appropriate. 2. CAD status post PCI Again the patient has presented with an acute coronary syndrome. He is undergone repeat cardiac catheterization proceeding to PCI of both the LCx and RCA distributions. He appears to be symptomatically improved. He will continue medical therapy and follow-up. 3. Ischemic mediated cardiomyopathy The patient does have underlying left ventricular wall motion abnormalities and mildly diminished LV systolic function is noted based on his previous diagnostic studies. He appears to be without symptoms of acute CHF or pulmonary edema at this time. He will continue with medications with advancement as tolerated. 4. Hyperlipidemia The patient will continue medical management and follow-up. 5. Hypertension The patient's blood pressure will be followed. His medicines will be adjusted as needed. 6. End-stage renal disease with chronic hemodialysis The patient did decline hemodialysis for a period of time. However as his clinical course deteriorated he reinitiated hemodialysis. He states she is feeling better overall. He will continue evaluation care per nephrology. Comment: The patient's case has been discussed and reviewed with the patient and Dr. Luna. This note was generated with [employer] dictation software. It may contain incorrect words, spelling, and punctuation that were not noted in checking the note before signing.
--- NOTE | 2018-10-29 10:00 | EKG12_ITS ---
Test Reason : POST PCI Blood Pressure : / mmHG Vent. Rate : 082 BPM Atrial Rate : 082 BPM P-R Int : 270 ms QRS Dur : 134 ms QT Int : 428 ms P-R-T Axes : 073 043 051 degrees QTc Int : 500 ms Sinus rhythm with 1st degree A-V block Right bundle branch block Abnormal ECG When compared with ECG of 28-OCT-2018 10:12, MANUAL COMPARISON REQUIRED, DATA IS UNCONFIRMED Confirmed by ARABELLA EDEN, NICKI ([id number]), senior technical editor KISHORE QUINTERO ([id number]) on 11/09/2018 2:00:31 PM Referred By: ELBA Confirmed By:AHMET BELL MD
--- NOTE | 2018-10-29 10:40 | PCM.PN.HOSP ---
Patient Problems: Active and Suspected Problems (Last Reviewed 09/30/18 @ 13:10 by Mirella Singletary) CAD (coronary artery disease) (Acute) Non-STEMI (non-ST elevated myocardial infarction) (Acute) Subjective: Feels better no issues overnight, no chest pain. Undergoing dialysis currently Vitals/I&O's: Vital Signs Temp Pulse Resp BP Pulse Ox 98.0 F 66 19 H 144/89 H 97 10/29/18 07:00 10/29/18 08:00 10/29/18 08:00 10/29/18 08:00 10/29/18 08:00 Oxygen Flow Rate (L/min) 2 Oxygen Delivery Method Room Air Weight: 167 lb Body Mass Index (BMI) 26.2 Finger Stick Blood Glucose 123 Intake and Output for Last 24 Hours 10/27/18 10/28/18 10/29/18 23:59 23:59 23:59 Intake Total 425 / 425 100 / 100 Output Total 200 / 200 125 / 125 Balance 225 / 225 -25 / -25 General: Alert, Oriented x3, Cooperative, No apparent distress HEENT: Atraumatic, PERRLA, EOMI, Normocephalic Oral: Moist Mucosa Neck: Supple, No JVD Lungs: Clear to auscultation, Normal air movement, No rhonchi, No wheeze, No rales, Diminished Cardiovascular: Regular rate, Regular Rhythm, Normal S1, Normal S2, No murmurs Abdomen: Soft, Non Tender, Non-Distended, No Hepato-splenomegaly Extremities: No edema, Capillary Refill Less than 3 Seconds, - - Fistula in left forearm Skin: No rashes, No breakdown, Incision - Dressing intact Neurological: Neuro grossly intact, Sensory exam intact to light touch and pain Psych/Mental Status: Normal Affect, Appropriate Laboratory Results 10/28/18 10:20: Sodium 136, Potassium 3.9, Chloride 96 L, Carbon Dioxide 32.0, Anion Gap 8, BUN 27 H, Creatinine 4.83 H, Estim Creat Clear Calc 12.35, Est GFR (MDRD) Af Amer 15 L, Est GFR (MDRD) Non-Af 13 L, BUN/Creatinine Ratio 5.6 L, Glucose 160 H, Calcium 8.7, Troponin I 0.474 H 10/28/18 10:20: B-Natriuretic Peptide 460.3 H 10/28/18 11:22: Activated Clotting Time 191 H 10/28/18 12:01: Activated Clotting Time 241 H Current Medications Acetaminophen (Tylenol) 650 mg PO Q6H PRN PRN PRN Reason: Mild Pain (0-2/10) Aspirin (Ecotrin) 81 mg PO DAILY@0800 [facility] Last Admin: 10/29/18 08:07 Dose: 81 mg Documented by: Atropine Sulfate () 0.5 mg IV UD PRN PRN Reason: HR <50 bpm Carvedilol (Coreg) 6.25 mg PO BID [facility] Dextrose (D50w Syringe) 0 gm IV X1 PRN; Protocol PRN Reason: Hypoglycemia Glucagon () 1 mg IM .X1 PRN PRN Reason: Hypoglycemia Heparin Sodium (Beef Lung) (Heparin 500 Unit/5 Ml (100/Ml)) 500 unit IV UD PRN PRN Reason: HEPARIN FLUSH Sodium Chloride () 1,000 mls @ 0 mls/hr IV .Q0M [facility] Nitroglycerin/Dextrose () 250 mls @ 3 mls/hr CONT INF .[id number] [facility] Last Admin: 10/28/18 16:48 Dose: Not Given Documented by: Sodium Chloride () 250 mls @ 15 mls/hr IV .[id number] PRN PRN Reason: SALINE FLUSH Insulin Glargine (Lantus (Bkc)) 5 units SC QHS [facility] Last Admin: 10/28/18 22:03 Dose: Not Given Documented by: Insulin Human Lispro (Humalog Kwikpen (Bkc)) 0 unit SC ACHS [facility]; Protocol Last Admin: 10/29/18 08:01 Dose: Not Given Documented by: Labetalol HCl (Trandate) 5 mg IV X1 PRN PRN Reason: SBP > 160 when pulling sheath Lorazepam (Ativan) 1 mg PO Q6H PRN PRN PRN Reason: BACK SPASMS/ANXIETY Metoclopramide HCl (Reglan) 5 mg IV Q6H PRN PRN PRN Reason: NAUSEA/VOMITING Nitroglycerin (Nitrostat) 0.4 mg SUBLINGUAL Q5M PRN PRN Reason: Chest pain Last Admin: 10/28/18 10:35 Dose: 0.4 mg Documented by: Nitroglycerin (Nitrostat) 0.4 mg SUBLINGUAL Q5M PRN PRN Reason: CARDIAC/CHEST PAIN Pravastatin Sodium (Pravachol) 40 mg PO QHS [facility] Last Admin: 10/28/18 22:06 Dose: 40 mg Documented by: Sodium Chloride () 500 ml IV BOLUS PRN PRN Reason: VASO-VAGAL PROTOCOL Sodium Chloride () 10 - 40 ml IV UD PRN PRN Reason: SALINE FLUSH Ticagrelor (Brilinta) 90 mg PO BID [facility] Last Admin: 10/29/18 08:07 Dose: 90 mg Documented by: Medical Necessity - Tobacco Use Smoking Status: Never smoker Assessment/Plan All Active Problems (Last Reviewed 09/30/18 @ 13:10 by Mirella Singletary) CAD (coronary artery disease) (Acute) Problem with dialysis access (Acute) Obesity (Acute) Ischemic cardiomyopathy (Acute) Nonrheumatic mitral valve regurgitation (Acute) Rheumatic tricuspid insufficiency (Acute) Uncontrollable nausea and vomiting (Acute) Left flank pain (Acute) Non-STEMI (non-ST elevated myocardial infarction) (Acute) Unstable angina (Acute) Acute on chronic renal insufficiency (Acute) Hyperkalemia (Acute) 1. NSTEMI s/p cardiac cath with stent placement to the left circumflex and the RCA/CAD with ischemic cardiomyopathy/paroxysmal A. fib/HTN/HLD -Underwent cardiac cath and had placement of stents -He was previously on aspirin and Plavix but he is not certain how often and how regular he is been taking him, he will be continued on aspirin and Brilinta -Continue with statins -Blood pressure appears to be stable he was started on Coreg by cardiology, which was increased today -We will monitor overnight with these medication changes and possibly discharge in the morning -Appreciate cardiology assistance 2. DM 2/end-stage renal disease -Uncontrolled with A1c of 8.1 on 10/07/2018 -We will place him on a sliding scale insulin as well as Lantus and monitor with Accu-Cheks AC at bedtime -He is supposedly on linagliptin at home -He did stop dialysis 2 months ago and then restarted with [facility] 2 weeks ago. Will consult for dialysis today after his dye load, he states that tomorrow he was supposed to go to [place] to have cannulization of his fistulas and he was not supposed to have dialysis tomorrow DVT: SCDs Code Visit Inpatient E&M: 47084 Subs Hosp L2
--- NOTE | 2018-10-29 11:59 | CASEMGMT ---
YSABEL AGUERO Assessment Presentation: NSTEMI Prior to entering room, pt was being belligerent with nursing and his daughter. Intro role of CM and purpose of RN CM assessment. Pt refused to take Brillinta brochure or discuss assessment and stated to RN MORE yeah, you can go too. Daughter met RN CM in [place]. Apologized for pt's behavior. RN CM reassured her we would be available to pt if he changed his mind. Daughter offered to answer questions. RN MORE gave daughter Brillinta card and explained purpose. Daughter states she will assist pt on dc, but stated I'm not sure he will take it. PCP: Dr. Sean Medina Specialists: Nephrology [facility]: [facility] Prescription Benefit: yes Dialysis: MWF @ [facility] LNOK: Daughter Jojo Living Arrangements: Lives independently. No care needs, but daughter is available to assist. Transportation: drives self to dialysis DME: none HHC: none Patient DC goals: Home DC PLAN: Juan Alberto VENEGAS RN ACM
--- NOTE | 2018-10-29 12:18 | DIALYSIS ---
Hemodialysis x 3.5 hours completed. Pt tolerated tx well. Fluid balance -700ml. [place] pulled. Hemostasis achieved. Dressing applied. Report given to YSABEL Earl. Pt stable
[2018-10-29] MEDS: SACUBITRIL/VALSARTAN 24/26 MG TABLET 1 EACH PO ×2 (13:02→21:32)
[2018-10-29] MEDS: Carvedilol 6.25 MG Tablet PO ×2 (13:02→21:32)
--- NOTE | 2018-10-29 13:57 | PCM.CONS.R ---
Problem List (1) ESRD (end stage renal disease) on dialysis Status: Chronic Consultation - Renal 10/29/18 PCP/ Referring MD: Requesting physician: Dr Rogel Primary care physician: Sean Medina MD Reason for Consultation:: ESRD - History of Present Illness History of Present Illness: The patient is a 73 year old M who presented to hospital with chest pain. Stress test was positive, hence he had a PCI with cardiology here. Renal consulted for ESRD. ESRD on HD MWF schedule. goes to [facility] in [place]. last HD was thursday. no complaints now - Allergies Allergies: Allergies codeine Allergy (Verified 10/28/18 10:15) Itching - Current Medications Current Medications: Current Medications Acetaminophen (Tylenol) 650 mg PO Q6H PRN PRN PRN Reason: Mild Pain (0-2/10) Aspirin (Ecotrin) 81 mg PO DAILY@0800 [facility] Last Admin: 10/29/18 08:07 Dose: 81 mg Documented by: Atropine Sulfate () 0.5 mg IV UD PRN PRN Reason: HR <50 bpm Carvedilol (Coreg) 6.25 mg PO BID [facility] Last Admin: 10/29/18 13:02 Dose: 6.25 mg Documented by: Dextrose (D50w Syringe) 0 gm IV X1 PRN; Protocol PRN Reason: Hypoglycemia Glucagon () 1 mg IM .X1 PRN PRN Reason: Hypoglycemia Heparin Sodium (Beef Lung) (Heparin 500 Unit/5 Ml (100/Ml)) 500 unit IV UD PRN PRN Reason: HEPARIN FLUSH Sodium Chloride () 1,000 mls @ 0 mls/hr IV .Q0M [facility] Nitroglycerin/Dextrose () 250 mls @ 3 mls/hr CONT INF .[id number] [facility] Last Admin: 10/28/18 16:48 Dose: Not Given Documented by: Sodium Chloride () 250 mls @ 15 mls/hr IV .[id number] PRN PRN Reason: SALINE FLUSH Insulin Glargine (Lantus (Bkc)) 5 units SC QHS [facility] Last Admin: 10/28/18 22:03 Dose: Not Given Documented by: Insulin Human Lispro (Humalog Kwikpen (Bkc)) 0 unit SC ACHS [facility]; Protocol Last Admin: 10/29/18 12:58 Dose: Not Given Documented by: Labetalol HCl (Trandate) 5 mg IV X1 PRN PRN Reason: SBP > 160 when pulling sheath Lorazepam (Ativan) 1 mg PO Q6H PRN PRN PRN Reason: BACK SPASMS/ANXIETY Metoclopramide HCl (Reglan) 5 mg IV Q6H PRN PRN PRN Reason: NAUSEA/VOMITING Nitroglycerin (Nitrostat) 0.4 mg SUBLINGUAL Q5M PRN PRN Reason: Chest pain Last Admin: 10/28/18 10:35 Dose: 0.4 mg Documented by: Nitroglycerin (Nitrostat) 0.4 mg SUBLINGUAL Q5M PRN PRN Reason: CARDIAC/CHEST PAIN Pravastatin Sodium (Pravachol) 40 mg PO QHS [facility] Last Admin: 10/28/18 22:06 Dose: 40 mg Documented by: Sodium Chloride () 500 ml IV BOLUS PRN PRN Reason: VASO-VAGAL PROTOCOL Sodium Chloride () 10 - 40 ml IV UD PRN PRN Reason: SALINE FLUSH Ticagrelor (Brilinta) 90 mg PO BID [facility] Last Admin: 10/29/18 08:07 Dose: 90 mg Documented by: - Past Medical History Past Medical History (Chronic Problems): Chronic Problems (Last Reviewed 09/30/18 @ 13:10 by Mirella Singletary) Essential hypertension (Chronic) ESRD (end stage renal disease) on dialysis (Chronic) Old myocardial infarction (Chronic) Inferior CT, anterior CT 07/05 [facility] use of drug (Chronic) Antihyperlipidemic Family history of hypertension (Chronic) Other secondary pulmonary hypertension (Chronic) Subendocardial ischemia (Chronic) Paroxysmal atrial fibrillation (Chronic) Atherosclerotic heart disease of [place] coronary artery without angina pectoris (Chronic) PTCA/HASMUKH to proximal RCA, mid LPL branch of the LCx, in mid LCx in April 2017; angioplasty and PCI to mid and distal RCA in 2014; thrombectomy and PCI to proximal, mid, and distal RCA in 2011; Type II diabetes mellitus (Chronic) Hyperlipidemia associated with type 2 diabetes mellitus (Chronic) S/P PTCA (percutaneous transluminal coronary angioplasty) (Chronic) thrombectomy with PTCA with HASMUKH to proximal, mid and distal RCA 03/03, PTCA with stenting to mid & distal RCA 07/05, PTCA of proximal LAD 07/05 HLD (hyperlipidemia) (Chronic) - Past Surgical History Surgical History: angioplasty, - - Coronary artery stent placement ?7, finger amputations right hand - Social History Smoking Status: Never smoker Alcohol: None Drugs: None - Family History Maternal Family History: Family History (Last Reviewed 09/30/18 @ 13:10 by Mirella Singletary) Mother Breast cancer Myocardial infarction CAD (coronary artery disease) Father Colon cancer Hypertension Myocardial infarction Other Family history of hypertension History Items: Heart Disease Paternal Family History: Family History (Last Reviewed 09/30/18 @ 13:10 by Mirella Singletary) Mother Breast cancer Myocardial infarction CAD (coronary artery disease) Father Colon cancer Hypertension Myocardial infarction Other Family history of hypertension History Items: Cancer Review of Systems Constitutional: Denies: Chills, Fever, Weight Change HEENT: Denies: Head Aches, Sinus Congestion, Sinus Drainage Cardiovascular: Denies: Chest Pain, Palpitations Respiratory: Denies: Cough, Shortness of breath at rest, Sputum production Gastrointestinal: Denies: Abdominal Pain, Nausea, Vomiting Genitourinary: Denies: Dysuria Musculoskeletal: Denies: Joint Pain, Joint Tenderness Skin: Denies: Rash, Wounds Neurological: Denies: Numbness, Tingling, Focal weakness Psychiatric: Denies: Anxiety, Depression, Homicidal Ideations, Suicidal Ideations Hematologic/ Lymphatic: Denies: Easy Bruising, Easy Bleeding Patient Problems: Active and Suspected Problems (Last Reviewed 09/30/18 @ 13:10 by Mirella Singletary) CAD (coronary artery disease) (Acute) Non-STEMI (non-ST elevated myocardial infarction) (Acute) - Physical Exam General: Alert, Oriented x3, Cooperative HEENT: Atraumatic, PERRLA, EOMI, Normocephalic Neck: Supple, No JVD, Negative Carotid Bruits Lungs: Clear to auscultation, Normal air movement Cardiovascular: Regular rate, No murmurs Abdomen: Bowel Sounds Present, Soft, Non Tender Extremities: No edema, Capillary Refill Less than 3 Seconds Skin: No rashes, No breakdown Musculoskeletal: No Tenderness to Palpation of Joints or Extremities Neurological: Cranial nerves II-XII grossly intact Psych/Mental Status: Normal Affect, Appropriate Vital Signs Temp Pulse Resp BP Pulse Ox 98.0 F 84 17 136/59 H 97 10/29/18 12:00 10/29/18 13:00 10/29/18 13:00 10/29/18 13:00 10/29/18 13:00 Oxygen Flow Rate (L/min) 2 Oxygen Delivery Method Room Air Weight: 75.75 kg Body Mass Index (BMI) 26.2 Finger Stick Blood Glucose 123 Intake and Output for Last 24 Hours 10/27/18 10/28/18 10/29/18 23:59 23:59 23:59 Intake Total 425 / 425 100 / 100 Output Total 200 / 200 125 / 125 Balance 225 / 225 -25 / -25 Laboratory Tests Past 24 Hrs 10/28/18 10/28/18 11:22 12:01 Activated Clotting Time 191 H 241 H Assessment/Plan All Active Problems (Last Reviewed 09/30/18 @ 13:10 by Mirella Singletary) CAD (coronary artery disease) (Acute) Problem with dialysis access (Acute) Obesity (Acute) Ischemic cardiomyopathy (Acute) Nonrheumatic mitral valve regurgitation (Acute) Rheumatic tricuspid insufficiency (Acute) Uncontrollable nausea and vomiting (Acute) Left flank pain (Acute) Non-STEMI (non-ST elevated myocardial infarction) (Acute) Unstable angina (Acute) Acute on chronic renal insufficiency (Acute) Hyperkalemia (Acute) ESRD. HD today. see orders/flowsheets Chest pain. s/p PCI dc today as per primary primary global regulatory affairs manager is Dr valera
[2018-10-29 14:43] LABS: Absolute Lymphocyte Count 0.47 X10^3/uL (0.83-4.51); Absolute Neutrophil Count 7.7 X10^3/uL (2.0-7.7); Basophil# 0.03 X10^3/uL; Basophil% 0.3 % (0-1); Eosinophil# 0.14 X10^3/uL; Eosinophils% 1.5 % (0-5); Hematocrit 30.9 % (40-54); Hemoglobin 10.4 g/dL (13.0-16.5); Lymphocyte # 0.47 X10^3/ul (4.0); Lymphocyte % 5.1 % (19-41); Mean Corp Hgb Conc 33.7 g/dL (32-36); Mean Corpuscular Hgb 34.1 pg (27.0-32.0); Mean Corpuscular Volume 101.3 fL (80-94); Monocyte# 0.86 X10^3/uL; Monocyte% 9.3 % (0-10); NRBC Flagged by Analyzer 0 % (0-5); Neutrophil # 7.68 X10^3/uL (2.7-7.7); Neutrophil % 83.4 % (47-70); POSITIVE DIFFERENTIAL YES; Platelet Count 250 K/mm3 (150-450); RBC Distribution Width CV 14.5 % (11.6-14.6); RBC Distribution Width SD 54.3 fl (35.1-43.9); Red Blood Count 3.05 M/mm3 (4.6-6.2); White Blood Count 9.2 K/mm3 (4.4-11.0)
[2018-10-29 14:45] LABS: Differential Indicated SCAN CRITERIA MET
[2018-10-29 15:01] LABS: ALB/GLOB Ratio 0.7 RATIO (0.9-2.4); AST(SGOT) 56 U/L (15-37); Alanine Aminotransfer ALT/SGPT 15 U/L (16-61); Albumin, Serum 2.8 g/dL (3.2-5.0); Alkaline Phosphatase 104 U/L (45-117); Anion Gap 6 (5-15); BUN 14 mg/dL (7-18); BUN/Creat Ratio 3.8 RATIO (10-20); Chloride 97 mmol/L (98-107); Creatinine, Serum 3.66 mg/dL (0.70-1.30); EST Glomerular Filtration Rate 17 mL/min (>60); Est Glom Filt Rate - Afr Amer 21 mL/min (>60); Globulin 4.1 g/dL (2.2-4.2); Glucose 231 mg/dL (74-106); Potassium 4.2 mmol/L (3.5-5.1); Protein, Total 6.9 g/dL (6.4-8.2); Sodium Level 134 mmol/L (136-145)
[2018-10-29 15:20] LABS: Differential Comment SCANNED
[2018-10-29] MEDS: Acetaminophen 325 MG Tablet 650 MG PO (21:32)
[2018-10-29] MEDS: Pravastatin 40 MG Tablet PO (21:33)
[2018-10-30 00:01] VITALS: PULSE 78
[2018-10-30 02:15] VITALS: BP 112/48; PULSE 74; RESP 16; TEMP 37.2; O2SAT 98
[2018-10-30 04:00] VITALS: PULSE 74
[2018-10-30 07:18] VITALS: PULSE 74
[2018-10-30 08:00] VITALS: BP 147/66; PULSE 72; RESP 16; TEMP 36.9; O2SAT 98
--- NOTE | 2018-10-30 08:52 | DCINST_ITS ---
- Discharge Diagnoses Current Active Problems: Current Active and Chronic Problems (Last Reviewed 09/30/18 @ 13:10 by Mirella Singletary) CAD (coronary artery disease) (Acute) Non-STEMI (non-ST elevated myocardial infarction) (Acute) You will use the following diet at home:: Calorie/Carbohydrate Controlled (specify 1200, 1400, etc), Cardiac Your food should be the consistency of: Regular Your liquids should be the consistency of: Regular/Thin Discharge Activity: Return to Normal Activity Call your doctor if your incision/area has: Continuous Slow Oozing, Sudden Increased Bleeding, Foul Smelling Discharge Call your doctor if you observe: Fever of 101 or Higher, Shortness of breath, Dizziness, Fainting spells, Swelling in the ankles, Chest pain, Increased palpitations (irregular heartbeat) Allergies/Adverse Reactions: Allergies codeine Allergy (Verified 10/28/18 10:15) Itching Medications to take at Discharge lorazepam 0.5 mg tablet 0.5 mg PO QHS PRN 03/29/18 aspirin 81 mg tablet,delayed release 81 mg PO DAILY 09/30/18 linagliptin 5 mg tablet 5 mg PO QHS PRN 09/30/18 pravastatin 80 mg tablet 80 mg PO DAILY #30 tab 09/30/18 sacubitril 24 mg-valsartan 26 mg tablet 1 tab PO BID #60 tab 09/30/18 Carvedilol [Coreg (Beta Lavinia)] 6.25 mg PO BID #60 tab 10/30/18 Ticagrelor [Brilinta] 90 mg PO BID #60 tab 10/30/18 The following prescriptions were given: Ticagrelor [Brilinta] 90 mg PO BID #60 tab Transmission Status: Pending to [facility] Carvedilol [Coreg (Beta Lavinia)] 6.25 mg PO BID #60 tab Transmission Status: Pending to [facility] Primary Care Physician: Sean Medina MD [Primary Care Provider] - Please follow up with your Primary Care Physician in: 3-5 days Test Results: Test results from this visit will be discussed in further detail at your follow- up appointment, if applicable. Please Follow Up With: Sean Ferguson NP-C
--- NOTE | 2018-10-30 08:52 | PCM.DC.SUM ---
Discharge Date and Diagnosis - Problem List Patient Problems: Active and Suspected Problems (Last Reviewed 09/30/18 @ 13:10 by Mirella Singletary) CAD (coronary artery disease) (Acute) Non-STEMI (non-ST elevated myocardial infarction) (Acute) Date of Admission: 10/28/18 Date of Discharge: 10/30/18 - Primary Discharge Diagnosis Active and Suspected Problems (Last Reviewed 09/30/18 @ 13:10 by Mirella Singletary) CAD (coronary artery disease) (Acute) Non-STEMI (non-ST elevated myocardial infarction) (Acute) - Secondary Discharge Diagnosis Chronic Problems (Last Reviewed 09/30/18 @ 13:10 by Mirella Singletary) Essential hypertension (Chronic) ESRD (end stage renal disease) on dialysis (Chronic) Old myocardial infarction (Chronic) Inferior NH, anterior NH 07/05 USP use of drug (Chronic) Antihyperlipidemic Family history of hypertension (Chronic) Other secondary pulmonary hypertension (Chronic) Subendocardial ischemia (Chronic) Paroxysmal atrial fibrillation (Chronic) Atherosclerotic heart disease of [place] coronary artery without angina pectoris (Chronic) PTCA/HASMUKH to proximal RCA, mid LPL branch of the LCx, in mid LCx in April 2017; angioplasty and PCI to mid and distal RCA in 2014; thrombectomy and PCI to proximal, mid, and distal RCA in 2011; Type II diabetes mellitus (Chronic) Hyperlipidemia associated with type 2 diabetes mellitus (Chronic) S/P PTCA (percutaneous transluminal coronary angioplasty) (Chronic) thrombectomy with PTCA with HASMUKH to proximal, mid and distal RCA 03/03, PTCA with stenting to mid & distal RCA 07/05, PTCA of proximal LAD 07/05 HLD (hyperlipidemia) (Chronic) Hospital Course and Treatment Imaging Results: None Consults: Cardiology Operations: None Procedures: 2-D Echocardiogram - Interpretation Summary The estimated ejection fraction is 45 %. Posterior-Basal: Severely hypokinetic. Infero-Basal: Severely Hypokinetic. Compared to echo report dated 04/23/2017, posterior and inferior hypokinesis appear to be worse. Anteroseptal corcoran have normalized. The study was technically limited., Cardiac catheterization - Indications: ACS <= 24 hrs, Stable Known CAD Heart Failure: NYHA Class: 1, Newly Diagnosed: Yes, Heart Failure Type: Systolic Stress/Imaging Stress/Image Study Performed: No Angina Classification Anginal Classification w/in 2 Weeks: No symptoms CAD Presentations: Unstable angina. Non-STEMI. Symptom onset Date/Time: 10/28/2018 Time Not Available Comorbidities/Risk Factors: Hypertension Dyslipidemia Prior PCI Peripheral Arterial Disease Diabetes Mellitus: Diabetes Therapy: Oral CONCLUSIONS Segmented LV systolic dysfunction- Mild Double vessel CAD of the LCX and RCA Successful PTCA/HASMUKH proximal LCX with a 3.0 x 16 Promus Synergy, 85%-->0%, no dissection. Successful PTCA/HASMUKH mid RCA ISR with a 2.5 x 10 Angiosculpt, followed with a 3.0 x 38 Promus Synergy, post dilated with a 3.0 and 3.5 x 12 NC balloon; 85%-->0%, no dissection. Summary of Care Provided: Per HPI: The patient is a 73 year old M with a PMH as below who presents with chest pain. He states that the pain started today several hours ago, without palpitations but it did radiate to his left arm. No shortness of breath, lightheadedness, dizziness. In the ER he was having an EKG which demonstrated an old right bundle branch block with flipped T waves in V2 through V5 with some ST segment depressions. The concern was for a posterior NH and therefore an emergent echo was obtained which showed hypokinesis in the inferior and posterior aspect of the heart and he was taken directly to the [facility]. He was found to have occlusion of the left circumflex with a mid RCA in-stent restenosis, both of these were stented in the [facility] and he was transferred to the ICU in stable condition for further monitoring. He also states that he has a history of end-stage renal disease and had decided about 2 months ago that he did not want anymore dialysis, partly because of the hassle and partly because he did not like the dialysis facility he was at. He presented to [facility] about 2 weeks ago because he was told that he had toxins building up in his bloodstream, with his most recent dialysis treatment being yesterday. Hospital Course: 1. End STEMI status post cardiac cath with stent placement to the left circumflex and the RCA/CAD with ischemic cardiomyopathy with 3 previous stents/A. [id number]/[id number]-old male with significant coronary artery disease history of previous stents presents with chest pain. He had EKG changes consistent with a posterior inferior NH, and was taken straight for cardiac cath. The ended up having to place 2 stents one in the left circumflex one in the RCA. Complicated by the fact that he is end-stage renal disease secondary to his diabetes, and he is fairly noncompliant with taking his aspirin and Plavix as well stopping dialysis for 2 or 3 months prior to a couple weeks ago. He has been doing very well, received dialysis yesterday and we made medication changes including starting him on Coreg which was increased to 6.25 mg p.o. twice daily which he tolerated well. Also, we changed his Plavix to Brilinta and aspirin. He has tolerated all therapies while here, and was cleared for discharge by cardiology. He needs to follow-up with cardiology at his previously scheduled appointment, to follow-up with his primary care physician in 3 to 5 days. I discussed with him the importance of taking his medications as prescribed and not stopping any medications without discussing it with his neurology physician assistant or his primary care physician first. He indicates understanding. 2. DM 2/ESRD on dialysis MWF-he was placed on sliding scale insulin as well as long-acting insulin, he refused both shots every day that he was here. He is on Tradjenta at home which she can restart on discharge. He received dialysis on Thursday and he was supposed to have a follow-up in [place] this Thursday as well with recannulization of this fistula obviously that is been delayed and he will have it rescheduled by his armored cable machine operator. Patient Problems: Active and Suspected Problems (Last Reviewed 09/30/18 @ 13:10 by Mirella Singletary) CAD (coronary artery disease) (Acute) Non-STEMI (non-ST elevated myocardial infarction) (Acute) Objective: General: Alert, Oriented x3, Cooperative, No apparent distress HEENT: Atraumatic, PERRLA, EOMI, Normocephalic Oral: Moist Mucosa Neck: Supple, No JVD Lungs: Clear to auscultation, Normal air movement, No rhonchi, No wheeze, No rales, Diminished Cardiovascular: Regular rate, Regular Rhythm, Normal S1, Normal S2, No murmurs Abdomen: Soft, Non Tender, Non-Distended, No Hepato-splenomegaly Extremities: No edema, Capillary Refill Less than 3 Seconds, - - Fistula in left forearm Skin: No rashes, No breakdown, Incision - Dressing intact Neurological: Neuro grossly intact, Sensory exam intact to light touch and pain Psych/Mental Status: Normal Affect, Appropriate - Physical Exam Vital Signs Temp Pulse Resp BP Pulse Ox 98.5 F 72 16 147/66 H 98 10/30/18 08:00 10/30/18 08:00 10/30/18 08:00 10/30/18 08:00 10/30/18 08:00 Oxygen Flow Rate (L/min) 2 Oxygen Delivery Method Room Air Weight: 167 lb 8.821 oz Body Mass Index (BMI) 26.2 Finger Stick Blood Glucose 123 Intake and Output for Last 24 Hours 10/28/18 10/29/18 10/30/18 23:59 23:59 23:59 Intake Total 425 / 425 820 / 1300 540 / 540 Output Total 200 / 200 925 / 1125 300 / 300 Balance 225 / 225 -105 / 175 240 / 240 Laboratory Tests Past 24 Hrs 10/29/18 10/29/18 14:20 14:20 WBC 9.2 RBC 3.05 L Hgb 10.4 L Hct 30.9 L MCV 101.3 H MCH 34.1 H MCHC 33.7 RDW Std Deviation 54.3 H RDW Coeff of Kirsten 14.5 Plt Count 250 MPV 10.0 Immature Gran % (Auto) 0.400 Neut % (Auto) 83.4 H Lymph % (Auto) 5.1 L [place] % (Auto) 9.3 Eos % (Auto) 1.5 Baso % (Auto) 0.3 Absolute Neuts (auto) 7.7 Absolute Lymphs (auto) 0.47 L Nucleated RBC % 0 Differential Comment SCANNED Sodium 134 L Potassium 4.2 Chloride 97 L Carbon Dioxide 31.0 Anion Gap 6 BUN 14 Creatinine 3.66 H Estim Creat Clear Calc 16.30 Est GFR (MDRD) Af Amer 21 L Est GFR (MDRD) Non-Af 17 L BUN/Creatinine Ratio 3.8 L Glucose 231 H Calcium 8.0 L Total Bilirubin 0.90 AST 56 H ALT 15 L Alkaline Phosphatase 104 Total Protein 6.9 Albumin 2.8 L Globulin 4.1 Albumin/Globulin Ratio 0.7 L Discharge Activity: Return to Normal Activity Call your doctor if your incision/area has: Continuous Slow Oozing, Sudden Increased Bleeding, Foul Smelling Discharge Call your doctor if you observe: Fever of 101 or Higher, Shortness of breath, Dizziness, Fainting spells, Swelling in the ankles, Chest pain, Increased palpitations (irregular heartbeat) Home Medications: Medications to take at Discharge lorazepam 0.5 mg tablet 0.5 mg PO QHS PRN 03/29/18 aspirin 81 mg tablet,delayed release 81 mg PO DAILY 09/30/18 linagliptin 5 mg tablet 5 mg PO QHS PRN 09/30/18 pravastatin 80 mg tablet 80 mg PO DAILY #30 tab 09/30/18 sacubitril 24 mg-valsartan 26 mg tablet 1 tab PO BID #60 tab 09/30/18 Carvedilol [Coreg (Beta Lavinia)] 6.25 mg PO BID #60 tab 10/30/18 Furosemide [Lasix] 80 mg PO BIDLX.TCU #60 tablet 10/30/18 Ticagrelor [Brilinta] 90 mg PO BID #60 tab 10/30/18 Following Prescrptions Were Given to Patient: Ticagrelor [Brilinta] 90 mg PO BID #60 tab Transmission Status: Received by [facility] Carvedilol [Coreg (Beta Lavinia)] 6.25 mg PO BID #60 tab Transmission Status: Received by [facility] Furosemide [Lasix] 80 mg PO BIDLX.TCU #60 tablet Primary Care Physician: Sean Medina MD [Primary Care Provider] - Please follow up with your Primary Care Physician in: 3-5 days Please Follow Up With: Sean Ferguson, [facility] Disposition: Home Minutes spent on discharge:: 35 Patient Condition:: Stable Medical Necessity - Tobacco Use Smoking Status: Never smoker Meaningful Use Info Meaningful Use Diagnoses (Choose all that apply): AMI - AMI Aspirin given w/in 24hrs of arrival?: Yes ASA at discharge?: Yes Statins at discharge?: Yes Alfa/ARB at discharge?: Yes Beta Lavinia at discharge?: Yes Done w/ Acute NH measure.: Yes Code Visit Inpatient E&M: 57443 Disch Hosp
--- NOTE | 2018-10-30 09:14 | PN.CARD_ITS ---
Subjectve: Patient doing very well this morning. No 24-hour events. Telemetry negative. Right groin is clean/dry/intact. No thrills, bruits or hematoma. Patient had dialysis yesterday without complications. Objective: Vital Signs Temp Pulse Resp BP Pulse Ox 98.5 F 72 16 147/66 H 98 10/30/18 08:00 10/30/18 08:00 10/30/18 08:00 10/30/18 08:00 10/30/18 08:00 Oxygen Flow Rate (L/min) 2 Oxygen Delivery Method Room Air Weight: 167 lb 8.821 oz Body Mass Index (BMI) 26.2 Finger Stick Blood Glucose 123 Intake and Output for Last 24 Hours 10/28/18 10/29/18 10/30/18 23:59 23:59 23:59 Intake Total 425 / 425 820 / 1300 540 / 540 Output Total 200 / 200 925 / 1125 300 / 300 Balance 225 / 225 -105 / 175 240 / 240 General: Awake, Alert, Oriented x 3 HEENT: PERRL, EOMI, Sclera Non Icteric Neck: Supple, Good ROM, No Lymph Node Enlargement Lungs: Clear to auscultation Cardiovascular: Regular Rhythm, Normal S1, Normal S2, No Murmurs, No Rubs, No Gallops Vascular: No Carotid Bruits, Normal Femoral Pulses, Normal Radial Pulses, Normal Dorsalis Pedal Pulse, Normal Posterior Tibial Pulses Abdomen: Bowel Sounds Present, Soft, Non Tender, No HSM, No Organomegaly Extremities: No Cyanosis, No Clubbing, No edema Neurological: No Focal Motor or Sensory Deficit 10/29/18 14:20: WBC 9.2, RBC 3.05 L, Hgb 10.4 L, Hct 30.9 L, MCV 101.3 H, MCH 34.1 H, MCHC 33.7, Plt Count 250, MPV 10.0, Immature Gran % (Auto) 0.400, Neut % (Auto) 83.4 H, Lymph % (Auto) 5.1 L, [place] % (Auto) 9.3, Eos % (Auto) 1.5, Baso % (Auto) 0.3, Absolute Neuts (auto) 7.7, Nucleated RBC % 0 10/29/18 14:20: Sodium 134 L, Potassium 4.2, Chloride 97 L, Carbon Dioxide 31.0, Anion Gap 6, BUN 14, Creatinine 3.66 H, Est GFR (MDRD) Af Amer 21 L, Est GFR (MDRD) Non-Af 17 L, BUN/Creatinine Ratio 3.8 L, Glucose 231 H, Calcium 8.0 L, Total Bilirubin 0.90 Rhythm: EKG: Normal sinus rhythm with right bundle branch block, posterior changes resolved. ECHO: Stress Test: Cardiac Cath: PCI: CT Surgery: Holter monitor: EPS: PPM: CXR: Chest CT Scan: Medical Necessity - Tobacco Use Smoking Status: Never smoker Assessment/Plan 1. Coronary artery disease: Patient status post acute coronary syndrome with a emergent left heart catheterization and angioplasty and stenting to his left circumflex and right coronary artery. Patient is done well post procedure. Patient will be discharged home on baby aspirin and Brilinta for life. In addition I would recommend restarting his Lasix 80 mg p.o. twice daily should the patient discontinue dialysis therapy again. Patient had stopped dialysis therapy for several months time, and I believe his Lasix was the only thing keeping him from going into florid heart failure and hyperkalemia. I had a long thorough discussion with the patient regarding his overall health issues and quality of life. Patient expressed frustration with his hemodialysis, but is interested in reinstituting dialysis on a regular basis. He will have his AV fistula repaired at [facility] in order to provide additional blood flow. Also recommend continuing his higher dose of Coreg to assist with hypertension as outlined in the MR[facility]. I am not sure if the patient will participate in cardiac rehab, but I encouraged him to do that as well. Also recommend the patient restart and continue Entresto. 2. Hyperlipidemia: Continue Pravachol. 3. Patient will follow-up with Dr. Dan going forward. Patient may be discharged home. Thank you very much for the opportunity to participate in the cardiac care of your patient. Code Visit Inpatient E&M: 12995 Subs Hosp L2
[2018-10-30] MEDS: Aspirin E.C. 81 MG Tablet PO (09:49)
[2018-10-30] MEDS: SACUBITRIL/VALSARTAN 24/26 MG TABLET 1 EACH PO (09:49)
[2018-10-30] MEDS: Carvedilol 6.25 MG Tablet PO (09:49)
[2018-10-30] MEDS: TICAGRELOR 90 MG TABLET PO (09:49)
[2018-10-31 07:08] LABS: Bedside Glucose 147 mg/dL (70-110)
== END 2018-10-30 11:00 | disposition home or self-care (01) | DRG 246 ==
LOC: ED 10:58 → CLSP 11:01 → ICU 12:28
PROVIDERS: Internal Medicine Cardiovascular Disease; Admitting Provider Family Medicine; Emergency Provider Emergency Medicine; Family Provider Family Medicine; PCP Family Medicine; Visit Provider Family Medicine
DX: I21.4 Non-ST elevation (NSTEMI) myocardial infarction (principal); N18.6 End stage renal disease; T82.855A Stenosis of coronary artery stent, initial encounter; I12.0 Hypertensive chronic kidney disease with stage 5 chronic kidney disease or end stage renal disease; E11.22 Type 2 diabetes mellitus with diabetic chronic kidney disease; I25.10 Atherosclerotic heart disease of native coronary artery without angina pectoris; E78.5 Hyperlipidemia, unspecified; I25.5 Ischemic cardiomyopathy; I25.2 Old myocardial infarction; Z99.2 Dependence on renal dialysis; Z95.5 Presence of coronary angioplasty implant and graft
CPT/HCPCS: 71045; 80048; 80053; 82962; 83880; 84484; 85025; 85347; 90937; 92928; 93005; 93308; 93458; 99284; J7040; Q9967; A4216; C1725; C1769; C1874; C1887; C1894; C9600; G0257; J2405

== ENCOUNTER 2018-11-30 16:12 | Observation (INO) | payer MEDICARE, SELFPAY ==
[2018-10-29 08:21] VITALS: BMI 26.2
[2018-11-12 14:50] VITALS: BMI 25.8
[2018-11-30] VITALS (12 sets, daily range): BP systolic 106–176; BP diastolic 75–104; PULSE 74–85; RESP 16–23; TEMP 36.5–36.6; O2SAT 97–100; BMI 26.0; BMI 25.9
--- NOTE | 2018-11-30 16:43 | EKG12_ITS ---
Test Reason : CP ADMISSION Blood Pressure : / mmHG Vent. Rate : 074 BPM Atrial Rate : 074 BPM P-R Int : 298 ms QRS Dur : 148 ms QT Int : 446 ms P-R-T Axes : 069 041 236 degrees QTc Int : 495 ms Sinus rhythm with 1st degree A-V block Right bundle branch block T wave abnormality, consider lateral ischemia Abnormal ECG When compared with ECG of 30-NOV-2018 16:20, MANUAL COMPARISON REQUIRED, DATA IS UNCONFIRMED Confirmed by LEILANI ARREOLA ([id number]), digital editor LAITH OSULLIVAN ([id number]) on 12/07/2018 1:11:48 PM Referred By: Lilibeth Cole Confirmed By:LEILANI ARREOLA
--- NOTE | 2018-11-30 16:45 | RAD_ITS ---
STUDY: X-RAY CHEST REASON FOR EXAM: Male, 73 years old. Chest pain TECHNIQUE: Single AP portable view of the chest. COMPARISON: Prior study of 10/28/2018 FINDINGS: monitor tech leads are present. The lungs are clear and expanded. There remains minimal blunting of the right costophrenic angle. Normal size heart. Normal mediastinum and evelio. Normal visualized pulmonary arteries. There are calcified plaques of the aortic arch. There are diffuse degenerative changes of the visualized thoracic spine. Normal visualized ribs, clavicles, and shoulders. There is no demonstrated abnormality of the visualized soft tissue structures of the upper abdomen. RAD/Chest 1 View (Portable) IMPRESSION: There is minimal blunting of the right costo phrenic angle appearing similar to the previous study. Degenerative changes of the thoracic spine. Calcified plaques of the aortic arch. No acute cardiopulmonary disease process is seen. Electronically Signed: Kirt Bravo MD at 17:09 EDT , Service support ,
[2018-11-30 17:04] LABS: Absolute Lymphocyte Count 0.71 X10^3/uL (0.83-4.51); Absolute Neutrophil Count 10.8 X10^3/uL (2.0-7.7); Basophil# 0.03 X10^3/uL; Basophil% 0.2 % (0-1); Eosinophils% 0.8 % (0-5); Hematocrit 34.2 % (40-54); Hemoglobin 11.4 g/dL (13.0-16.5); Lymphocyte # 0.71 X10^3/ul (4.0); Lymphocyte % 5.6 % (19-41); Mean Corp Hgb Conc 33.3 g/dL (32-36); Mean Corpuscular Hgb 34.4 pg (27.0-32.0); Mean Corpuscular Volume 103.3 fL (80-94); Mean Platelet Vol. 10.2 fl (6.2-12.0); Monocyte# 0.91 X10^3/uL; Monocyte% 7.2 % (0-10); NRBC Flagged by Analyzer 0 % (0-5); Neutrophil # 10.82 X10^3/uL (2.7-7.7); Neutrophil % 85.7 % (47-70); Platelet Count 241 K/mm3 (150-450); RBC Distribution Width CV 14.3 % (11.6-14.6); RBC Distribution Width SD 54.5 fl (35.1-43.9); Red Blood Count 3.31 M/mm3 (4.6-6.2); White Blood Count 12.6 K/mm3 (4.4-11.0)
[2018-11-30 17:30] LABS: Anion Gap 10 (5-15); BUN 30 mg/dL (7-18); BUN/Creat Ratio 5.3 RATIO (10-20); Calcium,Total 8.3 mg/dL (8.5-10.1); Chloride 97 mmol/L (98-107); Creatinine, Serum 5.68 mg/dL (0.70-1.30); EST Glomerular Filtration Rate 10 mL/min (>60); Est Glom Filt Rate - Afr Amer 13 mL/min (>60); Estimated Creatinine Clearance 10.51 ml/min; Glucose 302 mg/dL (74-106); Potassium 4.1 mmol/L (3.5-5.1); Sodium Level 136 mmol/L (136-145)
[2018-11-30] MEDS: Nitroglycerin SL (ED/IMG/CATH) 0.4 MG TABLET SUBLINGUAL ×2 (18:46→18:52)
--- NOTE | 2018-11-30 19:38 | HP.PCM_ITS ---
Problem List (1) Chest pain Status: Acute Qualifiers: Chest pain type: unspecified Qualified Code(s): R07.9 - Chest pain, unspecified (2) HLD (hyperlipidemia) Status: Chronic Qualifiers: Hyperlipidemia type: unspecified Qualified Code(s): E78.5 - Hyperlipidemia, unspecified (3) CAD (coronary artery disease) Status: Chronic Qualifiers: Coronary Disease-Associated Artery/Lesion type: augustine artery [place] vs. transplanted heart: augustine heart Associated angina: without angina Qualified Code(s): I25.10 - Atherosclerotic heart disease of augustine coronary artery without angina pectoris (4) Essential hypertension Status: Chronic (5) ESRD (end stage renal disease) on dialysis Status: Chronic (6) Ischemic cardiomyopathy Status: Chronic (7) Paroxysmal atrial fibrillation Status: Chronic (8) Type II diabetes mellitus Status: Chronic Qualifiers: Diabetes mellitus snf insulin use: without snf use Diabetes mellitus complication status: with circulatory complication Diabetes mellitus complication detail: with other circulatory complications Qualified Code(s): E11.59 - Type 2 diabetes mellitus with other circulatory complications History of Present Illness Date of Admission: 11/30/18 Chief Complaint: Chest pain The patient is a 73 y/o M w/ PMHx: AOCD, ESRD on HD MWF following w/ Dr. Scott, CAD s/p PCI x 11, HTN, HLD, Ischemic Cardiomyopathy, PAF, Diabetes mellitus type II, recent admission and evaluation with stenting on October 28 of this year with chest pain presentation at that time who no re-presents to the [facility] ED on 11/30/18 with history of recent midsternal chest discomfort described as a dull pressure, initially rated 10 out of 10, constant, initiating at 1 PM following cleaning up his garage with radiation to the left shoulder as well as the left posterior scapular region with no associated nausea, emesis or dyspnea but diaphoresis, continuing prompting eventual ED presentation. In the emergency room patient was administered nitroglycerin following which he now notes his pain is 4 out of 10 in severity and improving. He did take 8 baby aspirins prior to transitioning to the emergency room for evaluation. Work-up in the ED included T 97.8, heart rate 79, BP initially 172/104 with improvement to 122/75, respiratory rate 16, 97% on room air, CBC with WBC 12.6, hemoglobin 11.4, platelet 241 with left shift, BMP with chloride 97, BUN/creatinine 30/5.68, glucose 302, troponin 0.045, EKG SR with 1AVB, RBBB, CXR with minimal blunting R costophrenic ankle appearing similar to prior, degenerative changes of the thoracic spine, calcified plaques of the aortic arch. In the ED patient administered NG SL. Past Medical History Past Medical History (Chronic Problems): Chronic Problems (Last Reviewed 09/30/18 @ 13:10 by Mirella Singletary) HLD (hyperlipidemia) (Chronic) CAD (coronary artery disease) (Chronic) Essential hypertension (Chronic) ESRD (end stage renal disease) on dialysis (Chronic) Old myocardial infarction (Chronic) Inferior [place], anterior [place] 07/05 half-way use of drug (Chronic) Antihyperlipidemic Family history of hypertension (Chronic) Other secondary pulmonary hypertension (Chronic) Subendocardial ischemia (Chronic) Ischemic cardiomyopathy (Chronic) Paroxysmal atrial fibrillation (Chronic) Atherosclerotic heart disease of augustine coronary artery without angina pectoris (Chronic) PTCA/HASMUKH to proximal RCA, mid LPL branch of the LCx, in mid LCx in April 2017; angioplasty and PCI to mid and distal RCA in 2014; thrombectomy and PCI to proximal, mid, and distal RCA in 2011; Type II diabetes mellitus (Chronic) Hyperlipidemia associated with type 2 diabetes mellitus (Chronic) S/P PTCA (percutaneous transluminal coronary angioplasty) (Chronic) thrombectomy with PTCA with HASMUKH to proximal, mid and distal RCA 03/03, PTCA with stenting to mid & distal RCA 07/05, PTCA of proximal LAD 07/05 HLD (hyperlipidemia) (Chronic) Medical History: Medical History (Last Reviewed 09/30/18 @ 13:10 by Mirella Singletary) Essential hypertension (Chronic) I10 Old myocardial infarction (Chronic) I25.2 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[place], 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) Z79.899 Antihyperlipidemic Family history of hypertension (Chronic) Z82.49 Other secondary pulmonary hypertension (Chronic) I27.29 Subendocardial ischemia (Chronic) I24.8 Ischemic cardiomyopathy (Chronic) I25.5 Nonrheumatic mitral valve regurgitation (Acute) I34.0 Rheumatic tricuspid insufficiency (Acute) I07.1 Paroxysmal atrial fibrillation (Chronic) I48.0 Atherosclerotic heart disease of augustine coronary artery without angina pectoris (Chronic) I25.10 PTCA/HASMUKH to proximal RCA, mid LPL branch of the LCx, in mid LCx in April 2017; angioplasty and PCI to mid and distal RCA in 2014; thrombectomy and PCI to proximal, mid, and distal RCA in 2011; Type II diabetes mellitus (Chronic) E11.9 Hyperlipidemia associated with type 2 diabetes mellitus (Chronic) E11.69, E78.5 Uncontrollable nausea and vomiting (Acute) R11.2 Left flank pain (Acute) R10.9 Non-STEMI (non-ST elevated myocardial infarction) (Acute) I21.4 Unstable angina (Acute) HLD (hyperlipidemia) (Chronic) E78.5 Acute on chronic renal insufficiency (Acute) N28.9, N18.9 Hyperkalemia (Acute) E87.5 Coronary artery disease (Inactive) I25.10 Pneumonia (Inactive) J18.9 Allergies codeine Allergy (Verified 11/12/18 14:50) Itching Home Medications: Ambulatory Orders Medication Instructions Recorded aspirin 81 mg tablet,delayed 81 mg PO DAILY 09/30/18 release linagliptin 5 mg tablet 5 mg PO QHS 09/30/18 pravastatin 80 mg tablet 80 mg PO DAILY #30 tab 09/30/18 carvedilol 6.25 mg tablet 6.25 mg PO BID #60 tab 11/12/18 ticagrelor 90 mg tablet 90 mg PO BID #60 tab 11/12/18 Furosemide [Lasix] 80 mg PO BID 11/30/18 Sacubitril/Valsartan 24/26 mg 1 tab PO DAILY 11/30/18 [Entresto 24 mg-26 mg Tablet] Surgical History: Surgical History (Last Updated 11/02/18 @ 09:50 by Mirella Singletary) S/P coronary artery stent placement (Resolved) Onset Date: ~10/28/18 Z95.5 PTCA/HASMUKH of the prox LCX and PTCA/HASMUKH of the mid RCA 10/28/18 S/P PTCA (percutaneous transluminal coronary angioplasty) (Chronic) Z98.61 thrombectomy with PTCA with HASMUKH to proximal, mid and distal RCA 03/03, PTCA with stenting to mid & distal RCA 07/05, PTCA of proximal LAD 07/05 Presence of surgically created arteriovenous shunt for hemodialysis Onset Date: ~05/2017 Z99.2 fistulogram 09/07 Surgical History: angioplasty, - - Significant PCI history, most recently October 28, 2018, 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 Psychiatric History: No pertinent psych hx Lives: Alone Smoking Status: Never smoker Alcohol: Occasional Drugs: None - *Family History Maternal Family History: Family History (Last Reviewed 09/30/18 @ 13:10 by Mirella Singletary) Mother Breast cancer Myocardial infarction CAD (coronary artery disease) Father Colon cancer Hypertension Myocardial infarction Other Family history of hypertension History Items: Cancer, Heart Disease, Hypertension Paternal Family History: Family History (Last Reviewed 09/30/18 @ 13:10 by Mirella Singletary) Mother Breast cancer Myocardial infarction CAD (coronary artery disease) Father Colon cancer Hypertension Myocardial infarction Other Family history of hypertension History Items: Cancer, Heart Disease, Hypertension Review of Systems Constitutional: Reports: Malaise, Weakness, Fatigue. Denies: Chills, Fever, Weight Change HEENT: Denies: Head Aches, Sinus Congestion, Sinus Drainage Cardiovascular: Reports: Chest Pain, Chest Pressure, Heaviness. Denies: Light Headedness, Orthopnea, Palpitations, Syncope Respiratory: Denies: Cough, Shortness of Breath, Shortness of breath at rest, Shortness of breath upon exertion, Sputum production Gastrointestinal: Denies: Abdominal Pain, Nausea, Vomiting Genitourinary: Denies: Dysuria Musculoskeletal: Reports: Back Pain, Shoulder Pain. Denies: Joint Pain, Joint Tenderness Skin: Denies: Rash, Wounds Neurological: Denies: Numbness, Tingling, Focal weakness Psychiatric: Denies: Anxiety, Depression, Homicidal Ideations, Suicidal Ideations Hematologic/ Lymphatic: Reports: Anemia, Easy Bruising, Easy Bleeding VTE Information - Inpt Only VTE Present on Admission: No VTE Mechan Device Prophylaxis: SCD's VTE Pharm Prophylaxis ordered?: Yes Patient Problems: Active and Suspected Problems (Last Reviewed 09/30/18 @ 13:10 by Mirella Singletary) Chest pain (Acute) Subjective: Seated upright in ED bed, no acute distress, notes improved chest discomfort since initial presentation. Objective: Physical Examination: General: awake, alert, oriented x 3 and cooperative, seated upright in the ED bed in no apparent distress, notes chest pressure has improved. Skin: normal color, turgor, no icterus, cyanosis. HEENT: AT/NC, EOMI, PERRLA, MMM, no carotid bruits or JVD noted. Lungs: CTA bilaterally, moderate effort, mild decrease BL bases, no rales, ronchi or wheezing. Heart: Regular rate and rhythm; no gallop, rub audible. Abdomen: soft, NTTP, ND, normal BS, no HSM. Extremities: no cyanosis, clubbing, minimal bilateral ankle nonpitting edema, positive thrill left upper extremity AVF. Neurological: patient awake, alert, oriented x 3; cognitive function intact; pupils equally reactive to light and accomodation; cranial nerves II-XII grossly normal, moving all 4 extremities, no focal deficits, strength mildly to moderately global decrease secondary to acute presentation. Psychiatric: affect appears mildly fatigued, no acute evidence of depressive or anxiety feelings. - Physical Exam Vital Signs Temp Pulse Resp BP Pulse Ox 97.8 F 80 23 H 106/87 H 98 11/30/18 16:13 11/30/18 19:11 11/30/18 19:11 11/30/18 19:11 11/30/18 19:11 Oxygen Delivery Method Room Air Weight: 166 lb 7.184 oz Body Mass Index (BMI) 26.0 Finger Stick Blood Glucose 123 Laboratory Tests Past 24 Hrs 11/30/18 11/30/18 16:40 16:40 WBC 12.6 H RBC 3.31 L Hgb 11.4 L Hct 34.2 L MCV 103.3 H MCH 34.4 H MCHC 33.3 RDW Std Deviation 54.5 H RDW Coeff of Kirsten 14.3 Plt Count 241 MPV 10.2 Immature Gran % (Auto) 0.500 Neut % (Auto) 85.7 H Lymph % (Auto) 5.6 L [place] % (Auto) 7.2 Eos % (Auto) 0.8 Baso % (Auto) 0.2 Absolute Neuts (auto) 10.8 H Absolute Lymphs (auto) 0.71 L Nucleated RBC % 0 Sodium 136 Potassium 4.1 Chloride 97 L Carbon Dioxide 29.0 Anion Gap 10 BUN 30 H Creatinine 5.68 H Estim Creat Clear Calc 10.51 Est GFR (MDRD) Af Amer 13 L Est GFR (MDRD) Non-Af 10 L BUN/Creatinine Ratio 5.3 L Glucose 302 H Calcium 8.3 L Troponin I 0.045 Assessment/Plan All Active Problems (Last Reviewed 09/30/18 @ 13:10 by Mirella Singletary) Chest pain (Acute) S/P coronary artery stent placement (Resolved ~10/28/18) Problem with dialysis access (Acute) Obesity (Acute) Nonrheumatic mitral valve regurgitation (Acute) Rheumatic tricuspid insufficiency (Acute) Uncontrollable nausea and vomiting (Acute) Left flank pain (Acute) Non-STEMI (non-ST elevated myocardial infarction) (Acute) Unstable angina (Acute) Acute on chronic renal insufficiency (Acute) Hyperkalemia (Acute) The patient is a 73 y/o M w/ PMHx: AOCD, ESRD on HD MWF following w/ Dr. Scott, CAD s/p PCI x 11, HTN, HLD, Ischemic Cardiomyopathy, PAF, Diabetes mellitus type II, recent admission and evaluation with stenting on October 28 of this year with chest pain presentation at that time who no re-presents to the [facility] ED on 11/30/18 with history of recent midsternal chest discomfort described as a dull pressure, initially rated 10 out of 10, constant, initiating at 1 PM following cleaning up his garage with radiation to the left shoulder as well as the left posterior scapular region. 1. Chest Pain: Work-up in the ED included T 97.8, heart rate 79, BP initially 172/104 with improvement to 122/75, respiratory rate 16, 97% on room air, CBC with WBC 12.6, hemoglobin 11.4, platelet 241 with left shift, BMP with chloride 97, BUN/creatinine 30/5.68, glucose 302, troponin 0.045, EKG SR with 1AVB, RBBB, CXR with minimal blunting R costophrenic ankle appearing similar to prior, degenerative changes of the thoracic spine, calcified plaques of the aortic arch. Will admit to PCU, place on a monitored bed to assure no acute myocardial infarction with serial cardiac enzymes and EKGs. ASA, NG, morphine. Mag pending. Cardiology consulted, will evaluate in AM. Will maintain NPO after midnight pending their evaluation. 2. CAD: s/p [place], PTCA/HASMUKH to proximal RCA, mid LPL branch of the LCx, and mid LCx in April 2017, angioplasty and PCI to mid and distal RCA in 2014, thrombectomy and PCI to proximal, mid, and distal RCA in 2011, PTCA/HASMUKH to proximal LCx and PTCA/HASMUKH to mid RCA ISR on 10/28/2018. Will continue home aspirin, Brilinta, Coreg, Entresto regimen. 3. Ischemic Cardiomyopathy: 10/28/18 ECHO w/ EF 45%, posterior basal severely hypokinetic, inferior basal severely hypokinetic, compared to April 2017 echocardiogram posterior and inferior hypokinesis worsened, anterior septal corcoran normalized. Will maintain on aspirin, Brilinta and, statin, Coreg, Entresto, Lasix regimen. 4. Chronic normocytic anemia/AOCD: Admission hemoglobin 11.4, baseline 9-11, stable, trend. 5. Diabetes mellitus type II: Hold oral home regimen, recent hemoglobin A1c 8.1% in September, ADA diet with n.p.o. at midnight, accu checks w/ ISS, nutrition consulted for education and teaching. 6. Hypertension: Continue home regimen including Coreg, Lasix, Entresto, PRN hydralazine. 7. Hyperlipidemia: Continue home statin regimen. Recent lipid panel obtained in September, defer repeating. 8. PAF: Maintained on Coreg, not anticoagulated. 9. ESRD: HD Thursday, will consult Dr. Scott. 10. DVT prophylaxis: SCDs, heparin. 11. CODE status: Discussed CODE status at length including difference between FULL code, DNR-CCA and DNR-CC status. Following discussions about the differences in these status, requested DNR-CCA, no intubation status. Patient does have living will and healthcare power of district or district office director in place. Advanced Care Planning Face to Face Time: 16 minutes. Code Visit OBSV E&M: 80059 Initial observation care L3 Procedures: 75040 Advncd Care Plan 30 Min
--- NOTE | 2018-11-30 19:42 | ED.DCSUM_ITS ---
History of Present Illness Chief Complaint: Chest Pain Informant: Patient, Significant Other Onset: Today Context: Sudden Onset Timing: Continuous Quality: Sharp Location: Midsternal radiating to left shoulder with diaphoresis Current Severity: Moderate Maximum Severity: Severe Worsened by: Walking Relieved by: Nothing Associated Symptoms: No nausea slight shortness of breath Narrative: Patient is an elderly male with multiple medical problems which include ischemic cardiomyopathy and coronary disease with placement of 11 stents. Most recent stent placed September of this year. He had similar presentation in September. He states he took 8 baby aspirin prior to arrival. He did not take nitroglycerin. He denies hematemesis, no hematochezia. He denies any constitutional symptoms. He denies cough. Prior similar symptoms: Yes - Unstable angina with stent placement Recent Illness/Hospitalization: Yes - September 2018 Past Medical History - Allergies and Home Meds Allergies/Adverse Reactions: Allergies codeine Allergy (Verified 11/12/18 14:50) Itching Primary Care Physician: Sean Medina MD [Primary Care Provider] - Prior records reviewed: Yes Surgical History: angioplasty, - - Coronary artery stent placement ?7, finger amputations right hand Lives: Spouse/ Significant Other Smoking Status: Never smoker Alcohol: None Drugs: None - Family History Maternal Family History: Family History (Last Reviewed 09/30/18 @ 13:10 by Mirella Singletary) Mother Breast cancer Myocardial infarction CAD (coronary artery disease) Father Colon cancer Hypertension Myocardial infarction Other Family history of hypertension Family History: Reports: Heart Disease Paternal Family History: Family History (Last Reviewed 09/30/18 @ 13:10 by Mirella Singletary) Mother Breast cancer Myocardial infarction CAD (coronary artery disease) Father Colon cancer Hypertension Myocardial infarction Other Family history of hypertension Family History: Reports: Cancer Review of Systems General: Denies: Chills, Fever, Subjective, Sweats Eyes: Denies: Visual changes - bilaterally, Diplopia ENT: Denies: Rhinorrhea, Sore throat Cardiovascular: Reports: Chest pain Respiratory: Reports: Dyspnea. Denies: Dyspnea on exertion, Orthopnea, Paroxysmal nocturnal dyspnea Gastrointestinal: Denies: Abdominal pain, Nausea, Vomiting, Diarrhea, Constipation, Melena, Hematochezia, -, - Genitourinary: Denies: Dysuria, Hematuria, Frequency Musculoskeletal: Denies: Myalgias, Arthralgias, Neck pain, Back pain, Swelling, Extremity Pain, -, - Neurological: Denies: Headache, Weakness, Numbness Endocrine: Denies: Polyuria, Polydipsia, Heat intolerance, Cold intolerance, -, - Hematologic: Denies: Easy bruising, Easy bleeding, Lymphadenopathy, -, - Physical Exam Vital Signs/Narrative: Vital Signs Temp Pulse Resp BP Pulse Ox 11/30/18 19:11 80 23 H 106/87 H 98 11/30/18 19:00 85 17 106/87 H 99 11/30/18 18:58 81 17 124/85 H 97 11/30/18 18:00 82 16 148/95 H 97 11/30/18 16:43 99 11/30/18 16:35 78 16 132/95 H 97 11/30/18 16:13 97.8 F 79 16 122/75 H 97 11/30/18 16:12 79 16 172/104 H 97 Inital Vital Signs reviewed: Yes General: Well nourished, Well developed, No Acute Distress Head: Normocephalic, Atraumatic Eyes: Perrl, EOMI ENT: Moist mucous membranes, No rhinorrhea Neck: Supple, Nontender Cardiovascular: Regular rate, Regular rhythm, Normal S1, Normal S2, Murmur - 1/6 systolic Respiratory: No distress, CTA bilaterally, Chest nontender Abdomen: Soft, Nontender, Nondistended, Normal bowel sounds Rectal: Deferred Back: Nontender, Normal Inspection Extremities: Nontender, No edema Skin: Normal color, No rash Neurological: Alert, Oriented x3, Cranial nerves II-XII grossly intact, Normal Strength, Normal Sensation, - - Gait was not tested. Negative for: Normal DTR, Normal Gait Psychological: Normal affect, Normal Mood Diagnostic/Tx/Re-eval Chest X-Ray - ED: 1 View, Read by ED Physician, Normal, Heart, Mediastinum, Bony Structures, No Acute Disease, Chronic Changes Impressions Chest X-Ray 11/30/18 16:45 IMPRESSION: There is minimal blunting of the right costo phrenic angle appearing similar to the previous study. Degenerative changes of the thoracic spine. Calcified plaques of the aortic arch. No acute cardiopulmonary disease process is seen. Electronically Signed: Kirt Bravo MD at 17:09 EDT , Service support , 11/30/18 16:45 Chest 1 View (Portable) [RAD] Stat Laboratory Results 11/30/18 11/30/18 16:40 16:40 WBC 12.6 H RBC 3.31 L Hgb 11.4 L Hct 34.2 L MCV 103.3 H MCH 34.4 H MCHC 33.3 RDW Std Deviation 54.5 H RDW Coeff of Kirsten 14.3 Plt Count 241 MPV 10.2 Immature Gran % (Auto) 0.500 Neut % (Auto) 85.7 H Lymph % (Auto) 5.6 L [place] % (Auto) 7.2 Eos % (Auto) 0.8 Baso % (Auto) 0.2 Absolute Neuts (auto) 10.8 H Absolute Lymphs (auto) 0.71 L Nucleated RBC % 0 Sodium 136 Potassium 4.1 Chloride 97 L Carbon Dioxide 29.0 Anion Gap 10 BUN 30 H Creatinine 5.68 H Estim Creat Clear Calc 10.51 Est GFR (MDRD) Af Amer 13 L Est GFR (MDRD) Non-Af 10 L BUN/Creatinine Ratio 5.3 L Glucose 302 H Calcium 8.3 L Troponin I 0.045 - EKG Initial EKG Interpretation: Sinus Rhythm - Sinus rhythm with a first-degree AV block. Ventricular rate is 78. [place] interval is 270 ms. QS duration is prolonged at 150 ms. QT duration is 428 ms. [place] to the right. This is unchanged from October 30, 2018. - Medical Decision Making Differential includes cardiac chest pain, noncardiac chest pain which would include GI, pulmonary. Since is a similar to presentation September will work-up cardiac and treat with nitroglycerin. He reported improvement with nitroglycerin. He was not given aspirin since he took 8 baby aspirin prior to arrival. Case discussed with Dr. Lilibeth Cole the hospitalist and Dr. Trevor Bernal was paged to inform him of patient's presentation and admission. ED Disposition - Plan for ED Patient: Disposition: Acute Care Hospital [facility] Diagnosis: Angina at rest, Ischemic cardiomyopathy, Hyperlipidemia associated with type 2 diabetes mellitus, ESRD (end stage renal disease) on dialysis Referrals: Sean Medina MD [Primary Care Provider] -
--- NOTE | 2018-11-30 20:34 | EKG12_ITS ---
Test Reason : CP Blood Pressure : / mmHG Vent. Rate : 078 BPM Atrial Rate : 078 BPM P-R Int : 278 ms QRS Dur : 150 ms QT Int : 428 ms P-R-T Axes : 050 054 103 degrees QTc Int : 487 ms Sinus rhythm with 1st degree A-V block Right bundle branch block T wave abnormality, consider lateral ischemia Abnormal ECG Confirmed by LEILANI ARREOLA ([id number]), legal editor LAITH OSULLIVAN ([id number]) on 12/06/2018 2:07:10 PM Referred By: Lilibeth Cole Confirmed By:LEILANI ARREOLA
[2018-11-30 21:19] LABS: Magnesium 2.5 mg/dL (1.6-2.6)
[2018-11-30] MEDS: Morphine 2 MG/ML Syringe IV (22:16)
[2018-11-30] MEDS: Enoxaparin 80 MG/0.8 ML Syringe 70 MG SC (22:17)
[2018-11-30] MEDS: Pravastatin 80 MG Tablet PO (22:18)
[2018-11-30] MEDS: Carvedilol 6.25 MG Tablet PO (22:18)
[2018-11-30] MEDS: TICAGRELOR 90 MG TABLET PO (22:18)
[2018-11-30] MEDS: Insulin Lispro 100 UNIT/ML INSULN.PEN SC (22:26)
[2018-11-30] MEDS: CLARIFY ORDER NOTE (22:30)
[2018-11-30 23:10] LABS: Bedside Glucose 198 mg/dL (70-110)
[2018-11-30] MEDS: HYDROcodone Bitartrate/Apap 5/325 Tablet PO (23:59)
[2018-12-01] VITALS (32 sets, daily range): BP systolic 99–186; BP diastolic 43–103; PULSE 60–77; RESP 11–20; TEMP 36.6–37.4; O2SAT 93–98
[2018-12-01 02:22] LABS: Absolute Lymphocyte Count 1.27 X10^3/uL (0.83-4.51); Absolute Neutrophil Count 6.1 X10^3/uL (2.0-7.7); Basophil# 0.03 X10^3/uL; Basophil% 0.4 % (0-1); Eosinophil# 0.17 X10^3/uL; Hematocrit 29.1 % (40-54); Hemoglobin 9.6 g/dL (13.0-16.5); Lymphocyte # 1.27 X10^3/ul (4.0); Lymphocyte % 15.1 % (19-41); Mean Corpuscular Hgb 33.8 pg (27.0-32.0); Mean Corpuscular Volume 102.5 fL (80-94); Mean Platelet Vol. 9.8 fl (6.2-12.0); Monocyte# 0.83 X10^3/uL; Monocyte% 9.8 % (0-10); NRBC Flagged by Analyzer 0 % (0-5); Neutrophil % 72.3 % (47-70); Platelet Count 217 K/mm3 (150-450); RBC Distribution Width CV 14.1 % (11.6-14.6); Red Blood Count 2.84 M/mm3 (4.6-6.2); White Blood Count 8.4 K/mm3 (4.4-11.0)
[2018-12-01 02:39] LABS: Anion Gap 7 (5-15); BUN 36 mg/dL (7-18); BUN/Creat Ratio 5.9 RATIO (10-20); Chloride 102 mmol/L (98-107); Creatinine, Serum 6.08 mg/dL (0.70-1.30); EST Glomerular Filtration Rate 10 mL/min (>60); Est Glom Filt Rate - Afr Amer 12 mL/min (>60); Estimated Creatinine Clearance 9.81 ml/min; Glucose 133 mg/dL (74-106); Potassium 3.9 mmol/L (3.5-5.1); Sodium Level 136 mmol/L (136-145)
[2018-12-01] MEDS: Morphine 2 MG/ML Syringe IV (02:53)
--- NOTE | 2018-12-01 05:55 | EKG12_ITS ---
Test Reason : POST STENT Blood Pressure : / mmHG Vent. Rate : 069 BPM Atrial Rate : 069 BPM P-R Int : 314 ms QRS Dur : 146 ms QT Int : 476 ms P-R-T Axes : 063 051 264 degrees QTc Int : 510 ms * Pediatric ECG Analysis * Sinus rhythm with 1st degree A-V block Right bundle branch block PEDIATRIC ANALYSIS - MANUAL COMPARISON REQUIRED When compared with ECG of 01-DEC-2018 05:07, PREVIOUS ECG IS PRESENT Confirmed by ARABELLA EDEN, NICKI ([id number]), newspaper editor managing LAITH OSULLIVAN ([id number]) on 12/06/2018 3:55:23 PM Referred By: Lilibeth Cole Confirmed By:AHMET BELL MD
[2018-12-01 06:30] LABS: Bedside Glucose 111 mg/dL (70-110)
[2018-12-01] MEDS: TICAGRELOR 90 MG TABLET PO ×2 (06:58→21:06)
[2018-12-01] MEDS: Carvedilol 6.25 MG Tablet PO ×2 (06:58→21:06)
[2018-12-01] MEDS: SACUBITRIL/VALSARTAN 24/26 MG TABLET 1 EACH PO ×2 (06:58→21:06)
[2018-12-01] MEDS: Aspirin E.C. 81 MG Tablet PO (06:58)
--- NOTE | 2018-12-01 07:20 | CON.PCM_ITS ---
Reason for Consult Date of Consultation: 12/01/18 Reason for Consultation: Abnormal cardiac enzymes History of Present Illness: The patient is a 73 year old M with a history of known coronary artery disease, end-stage renal disease on hemodialysis Thursday with multiple stenting procedures. He was recently in the hospital in October of this year after he presented with chest discomfort and underwent cardiac catheterization with angioplasty with a drug-eluting stent to the left circumflex artery with a 3.0?16 Promus stent in the right coronary artery stented with a 2.5 and a subsequent 3.0 x 38 mm drug-eluting stent. The left main was normal, the LAD had a 50% stenosis. He apparently did well until yesterday while when cleaning his garage he started having shoulder pain and left scapular pain. There was no nausea diaphoresis near syncope or syncope. He took some aspirin and then came to the emergency room. In the emergency room he was given sublingual nitroglycerin with improvement in his discomfort. His initial blood pressure was noted to be elevated over 170 mmHg and his EKG demonstrated normal sinus rhythm with a first-degree AV block and a right bundle branch block. No acute changes were noted. His troponin was mildly elevated. He was admitted to the telemetry floor for further evaluation and management. He has had on and off chest discomfort during the hospitalization. He is still having some chest discomfort at this time-albeit mild and he says that he has been compliant with his medications and has not missed any dosages. Past Medical History Allergies/Adverse Reactions: Allergies codeine Allergy (Verified 11/12/18 14:50) Itching Home Medications: Ambulatory Orders Medication Instructions Recorded aspirin 81 mg tablet,delayed 81 mg PO DAILY 09/30/18 release linagliptin 5 mg tablet 5 mg PO QHS 09/30/18 pravastatin 80 mg tablet 80 mg PO DAILY #30 tab 09/30/18 carvedilol 6.25 mg tablet 6.25 mg PO BID #60 tab 11/12/18 ticagrelor 90 mg tablet 90 mg PO BID #60 tab 11/12/18 Furosemide [Lasix] 80 mg PO BID 11/30/18 Sacubitril/Valsartan 24/26 mg 1 tab PO DAILY 11/30/18 [Entresto 24 mg-26 mg Tablet] Past Medical History (Chronic Problems): Chronic Problems (Last Reviewed 09/30/18 @ 13:10 by Mirella Singletary) HLD (hyperlipidemia) (Chronic) CAD (coronary artery disease) (Chronic) Essential hypertension (Chronic) ESRD (end stage renal disease) on dialysis (Chronic) Old myocardial infarction (Chronic) Inferior [place], anterior [place] 07/05 halfway use of drug (Chronic) Antihyperlipidemic Family history of hypertension (Chronic) Other secondary pulmonary hypertension (Chronic) Subendocardial ischemia (Chronic) Ischemic cardiomyopathy (Chronic) Paroxysmal atrial fibrillation (Chronic) Atherosclerotic heart disease of [place] coronary artery without angina pectoris (Chronic) PTCA/HASMUKH to proximal RCA, mid LPL branch of the LCx, in mid LCx in April 2017; angioplasty and PCI to mid and distal RCA in 2014; thrombectomy and PCI to proximal, mid, and distal RCA in 2011; Type II diabetes mellitus (Chronic) Hyperlipidemia associated with type 2 diabetes mellitus (Chronic) S/P PTCA (percutaneous transluminal coronary angioplasty) (Chronic) thrombectomy with PTCA with HASMUKH to proximal, mid and distal RCA 03/03, PTCA with stenting to mid & distal RCA 07/05, PTCA of proximal LAD 07/05 HLD (hyperlipidemia) (Chronic) Surgical History: angioplasty, - - Significant PCI history, most recently October 28, 2018, 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 Psychiatric History: No pertinent psych hx - *Family History Maternal Family History: Family History (Last Reviewed 09/30/18 @ 13:10 by Mirella Singletary) Mother Breast cancer Myocardial infarction CAD (coronary artery disease) Father Colon cancer Hypertension Myocardial infarction Other Family history of hypertension History Items: Cancer, Heart Disease, Hypertension Paternal Family History: Family History (Last Reviewed 09/30/18 @ 13:10 by Mirella Singletary) Mother Breast cancer Myocardial infarction CAD (coronary artery disease) Father Colon cancer Hypertension Myocardial infarction Other Family history of hypertension History Items: Cancer, Heart Disease, Hypertension Lives: Alone Smoking Status: Never smoker Alcohol: Occasional Drugs: None Review of Systems - Review of Systems General: Denies: Fever, Night Sweats, Fatigue HEENT: Denies: Vision Change Cardiovascular: Reports: Chest Discomfort, Chest Discomfort at Rest, Chest Discomfort with Exertion. Denies: Shortness of Breath, Orthopnea, PND, Peripheral Edema, Palpitations, Lightheadedness, Dizziness, Near Syncope, Syncope Respiratory: Denies: Cough, Sputum Production, Hemoptysis Gastrointestinal: Denies: Hematemesis, Hematochezia, Melena Genitourinary: Denies: Dysuria, Hematuria Muscoloskeletal: Denies: Myalgias Skin: Denies: Rash Neurological: Denies: Dizziness Psychiatric: Denies: Anxiety Endocrine: Denies: Unexplained Weight Loss Hematologic/ Lymphatic: Reports: Anemia Subjectve: Patient seen and evaluated. Appears to be doing well. Objective: Vital Signs Temp Pulse Resp BP Pulse Ox 98.0 F 76 16 160/87 H 93 12/01/18 07:01 12/01/18 07:01 12/01/18 07:01 12/01/18 07:01 12/01/18 07:01 Oxygen Delivery Method Room Air Weight: 166 lb 0.129 oz Body Mass Index (BMI) 25.9 Finger Stick Blood Glucose 123 Intake and Output for Last 24 Hours 11/29/18 11/30/18 12/01/18 23:59 23:59 23:59 Intake Total 170 / 170 Output Total 175 / 175 Balance -5 / -5 General: Awake, Alert, Oriented x 3 HEENT: PERRL, EOMI, Sclera Non Icteric Neck: Supple, Good ROM, No Lymph Node Enlargement Lungs: Clear to auscultation Cardiovascular: Regular Rhythm, Normal S1, Normal S2, No Murmurs, No Rubs, No Gallops Vascular: No Carotid Bruits, Normal Femoral Pulses, Normal Radial Pulses, Normal Dorsalis Pedal Pulse, Normal Posterior Tibial Pulses Abdomen: Bowel Sounds Present, Soft, Non Tender, No HSM, No Organomegaly Extremities: No Cyanosis, No Clubbing, No edema, - - left arm fistula Musculoskeletal: No Erythema Neurological: No Focal Motor or Sensory Deficit Psych/Mental Status: Appropriate 11/30/18 16:40: WBC 12.6 H, RBC 3.31 L, Hgb 11.4 L, Hct 34.2 L, MCV 103.3 H, MCH 34.4 H, MCHC 33.3, Plt Count 241, MPV 10.2, Immature Gran % (Auto) 0.500, Neut % (Auto) 85.7 H, Lymph % (Auto) 5.6 L, [place] % (Auto) 7.2, Eos % (Auto) 0.8, Baso % (Auto) 0.2, Absolute Neuts (auto) 10.8 H, Nucleated RBC % 0 11/30/18 16:40: Sodium 136, Potassium 4.1, Chloride 97 L, Carbon Dioxide 29.0, Anion Gap 10, BUN 30 H, Creatinine 5.68 H, Est GFR (MDRD) Af Amer 13 L, Est GFR (MDRD) Non-Af 10 L, BUN/Creatinine Ratio 5.3 L, Glucose 302 H, Calcium 8.3 L, Troponin I 0.045 11/30/18 20:49: Magnesium 2.5, Troponin I 0.301 H 11/30/18 23:25: Troponin I 0.618 H* 12/01/18 02:12: WBC 8.4, RBC 2.84 L, Hgb 9.6 L, Hct 29.1 L, MCV 102.5 H, MCH 33.8 H, MCHC 33.0, Plt Count 217, MPV 9.8, Immature Gran % (Auto) 0.400, Neut % (Auto) 72.3 H, Lymph % (Auto) 15.1 L, [place] % (Auto) 9.8, Eos % (Auto) 2.0, Baso % (Auto) 0.4, Absolute Neuts (auto) 6.1, Nucleated RBC % 0 12/01/18 02:12: Sodium 136, Potassium 3.9, Chloride 102, Carbon Dioxide 27.0, Anion Gap 7, BUN 36 H, Creatinine 6.08 H, Est GFR (MDRD) Af Amer 12 L, Est GFR (MDRD) Non-Af 10 L, BUN/Creatinine Ratio 5.9 L, Glucose 133 H, Calcium 8.0 L 12/01/18 02:12: Troponin I 1.510 H* Rhythm: EKG: Normal sinus rhythm with right bundle branch block Assessment/Plan 1. Coronary artery disease involving [place] coronary artery of [place] heart without angina pectoris I25.10-non-ST elevation myocardial infarction He is status post recent stenting to proximal LCx and mid RCA for in-stent restenosis on 10/28/2018. Presents with chest discomfort again. It is felt that he should undergo a repeat cardiac catheterization. The risk benefits alternatives have been explained to him. He was previously stented by Dr. Jaylen Luna but currently Dr. Paredes is covering for him. In light of the fact that the patient is still having chest discomfort the patient would undergo cardiac catheterization forth with. Patient would undergo dialysis after his procedure. 2. S/P coronary artery stent placement Z95.5 PTCA/HASMUKH of the prox LCX and PTCA/HASMUKH of the mid RCA 10/28/18 Continue current treatment plan as outlined above. 3. Ischemic cardiomyopathy I25.5 Plan His most recent heart catheterization from 10/28/2018 showed an LV gram of 50%. He denies any shortness of breath or lower extremity edema. He will continue with fluid management per dialysis. He will continue with current beta-bishnu and diuretic. He will continue with dialysis therapy. We will continue to monitor. 4. Paroxysmal atrial fibrillation I48.0 Plan He appears to be maintaining regular rhythm. He will continue current medical therapy. He is not on oral anticoagulation. 5. Essential (primary) hypertension I10 Plan Patient's blood pressure is well-controlled. His blood pressure was however elevated in the emergency room and appears to be better now. We will continue to monitor. We will not make any medication regimen changes. He was reminded with dialysis therapy his blood pressure had to be monitored closely and that medication adjustment may be required. 6. Hyperlipidemia, unspecified hyperlipidemia type E78.5 Plan Lipid panel from September 2018 showed cholesterol: 130, HDL: 39, LDL: 64, and triglycerides: 136. He will continue current high-dose statin medication. Thank you for allowing me to participate in the care of your patient. Please don't hesitate to call if any issues arise Addendum: Patient underwent cardiac catheterization which demonstrated the following: Left main coronary artery fairly normal. Left Left anterior descending artery with previously placed stent patent with distal 70% long stenosis. Left circumflex artery previously placed stents patent with first obtuse marginal branch with moderate disease. Right coronary artery codominant with recently placed stents totally occluded in the mid segment. Left ventricular ejection fraction noted to be low normal estimated at 50% with mid inferior hypokinesis. Based on the above angiographic findings a consideration as to repeat kiesha oplasty versus medical therapy would be considered.
--- NOTE | 2018-12-01 08:24 | CL.D_ITS ---
Patient Name: CAITLIN CRUZ Study Date: 12/01/2018 Performing: Trevor Bernal MD Ht: 66.92 inches 170 cm : 1945 Wt: 165.35 lbs 75 kg Age: 73 Gender: male BSA: 1.86 PROCEDURE(S) PERFORMED [id number]/[id number]/LV CLINICAL PROFILE AND INDICATIONS Indications: ACS <= 24 hrs Heart Failure: None Stress/Imaging Stress/Image Study Performed: No CONCLUSIONS Previously placed stent in the left anterior descending artery is patent with diffuse distal LAD dise ase, previously placed stent in the left circumflex artery is noted to be patent with mild in-stent s tenosis, and previously placed stent in the right coronary artery is totally occluded in the midsegme nt. No collateral circulation is noted. Left ventricular ejection fraction appears to be low normal with mid inferior hypokinesis. RECOMMENDATIONS Consider medical therapy versus repeat PCI of the right coronary artery in light of the fact that the re appears to be some viability with no collateral from the LAD or circumflex territory. However the chances of long-term patency of the above suspected to be small. DESCRIPTION OF PROCEDURE The patient arrived to the procedure lab. The risks and benefits of the procedure as well as a full d escription of our services here and current unavailability of surgical backup were fully explained to the patient and/or their significant other prior to the catheterization. The Timeout was completed, verifying the correct patient and procedure. The patient's procedural site was prepped and draped in the usual fashion. Local anesthetic was given subcutaneously to right radial region with Lidocaine 2% . Using a modified Seldinger technique, arterial access was obtained via the right radial artery, a 6 Fr sheath was inserted. Left Coronary Artery selective angiography was then performed in multiple vi ews using a 5 Fr. 4.0 [place] catheter. Right Coronary Artery selective angiography was then performed in multiple views using a 5 Fr. 4.0 [place] catheter. Left Coronary Artery selective angiography was pe rformed in multiple views using a 5 Fr. JL3.5 catheter. Left Ventriculography was performed in BHANDARI projection using a 5 Fr. Pig[place] catheter. LV to AO pullback pressures were then rec orded. CORONARY ANGIOGRAPHY DOMINANCE: Co- Dominant LEFT HEART ASSESSMENT Left Ventricular Ejection Fraction: by LV Gram 50 % Inferior Mid Hypokinesis - Severe Depressed Left Ventricular systolic function LEFT MAIN: Mild calcification LEFT ANTERIOR DESCENDING ARTERY: PROX LAD: Previously placed stent has an instent 30 % restenosis DISTAL LAD: Diffusely diseased up to 70 % CIRCUMFLEX ARTERY: PROX CIRC: Previously placed stent is patent OM 1: Proximal - Moderate luminal irregularities up to 50% RIGHT CORONARY ARTERY: PROX RCA: Previously placed stent is occluded COMPLICATIONS PROCEDURE MEDICATIONS Fentanyl 50 mcg IV Versed 1 mg IV Oxygen: 2 L/min via nasal cannula Heparin diluted in 23cc Heparinized saline. Patient given 6cc IA of this solution. 12/01/2018 07:51:4 2 Verapamil 2.5mg, Ntg 100mcgs, 2000 units of Heparin diluted in 23cc Heparinized saline. Patient give n 6cc IA of this solution. 12/01/2018 07:51:42 SUMMARY OF HEMODYNAMIC DATA Time AIR REST ECG 07:36:07 AO 86/63 (75) SA 07:55:16 AO 95/69 (83) 07:58:12 LV 129/11, 16 08:13:41 LV 129/11, 16 08:13:47 LV 126/5, 17 08:14:59 LV 129/8, 16 08:15:05 LVp 128/5, 17 08:15:09 AOp 126/64 (88) 08:15:14 Signed By Trevor Bernal MD On 12/01/2018 8:23:30 AM Trevor Bernal MD
--- NOTE | 2018-12-01 09:20 | PCM.PROGNOTE ---
Patient Problems: Active and Suspected Problems (Last Reviewed 09/30/18 @ 13:10 by Mirella Singletary) Chest pain (Acute) Subjective: Patient was seen independently and in conjunction with MARIAN Snowden. The patient is a 73-year-old male with a past medical history of lipidemia, coronary artery disease, hypertension, end-stage renal disease on dialysis, ischemic cardiomyopathy, paroxysmal atrial fibrillation and type 2 diabetes who presented to the emergency department at [facility] on 11/30/2018 complaining of chest pain. On 10/28/2018 he had successful PTCA/HASMUKH to the proximal LCx and PTCA/HASMUKH to the mid RCA. The pain was constant and described as 10/10 midsternal pain that started after cleaning up his garage. The pain radiated to his left shoulder and the left back. He denied nausea, shortness of breath and diaphoresis. He admits to probably not taking all his medications as instructed. Vital signs at presentation to the emergency department were temp 97.8, pulse rate 79, blood pressure 172/104, respiratory rate 16 and he was 97% saturated on room air. EKG showed sinus rhythm with a first-degree AV block, right bundle branch block no ST segment elevation. White blood cell count was 12.6 and hemoglobin was 11.4. Platelets were within normal limits. BUN was 30 and the creatinine was 5.68. Potassium was 4.1. Magnesium was normal at 2.5. The initial troponin was 0.045 and the second troponin was 0.618. Chest x-ray showed blunting of the right costophrenic angle with no increased pulmonary vascular congestion and no infiltrates. He was admitted to a monitored bed on PCU and cardiology was consulted. It was felt he should undergo a repeat catheterization and he was taken for the procedure on 12/01/2018. The catheterization showed the previously placed to the LAD was patent with diffuse distal LAD disease. The stent to the left circumflex artery was noted to be patent with mild in-stent stenosis and the previously placed stent in the right coronary artery was totally occluded in the midsegment. There was no collateral circulation. The left ventricular gram showed a 50% ejection fraction. The patient was referred to Dr. Rc kaplan. He was seen and examined in the ICU post procedure. He denies CP, SOB, palpitations and lightheadedness. He sees a network intern in [place] and he is on a MWF schedule. He has seen Dr. Scott in the past. He is lying flat in bed with no respiratory distress. - Physical Exam General: Alert, Oriented x3, Cooperative - but is gruff and seems irritated. HEENT: Atraumatic Oral: Moist Mucosa Neck: Supple, No JVD, Negative Carotid Bruits, No Nodes, Trachea Midline Lungs: Clear to auscultation - Anterior and lateral, No rhonchi, No wheeze, No rales Cardiovascular: Regular rate, Regular Rhythm, Normal S1, Normal S2, No murmurs, No rub noted, No Gallop Abdomen: Bowel Sounds Present, Soft, Non Tender, Non-Distended, - - No guarding with palpation Extremities: No clubbing, No cyanosis, No edema, - - Good thrill in the LUE AV fistula Skin: No rashes Neurological: Cranial nerves II-XII grossly intact, Neuro grossly intact Psych/Mental Status: - - irritable Vital Signs Temp Pulse Resp BP Pulse Ox 98.0 F 76 16 160/87 H 94 12/01/18 07:01 12/01/18 07:01 12/01/18 07:01 12/01/18 07:01 12/01/18 07:16 Oxygen Delivery Method Room Air Weight: 166 lb 0.129 oz Body Mass Index (BMI) 25.9 Finger Stick Blood Glucose 123 Intake and Output for Last 24 Hours 11/29/18 11/30/18 12/01/18 23:59 23:59 23:59 Intake Total 170 / 170 Output Total 175 / 175 Balance -5 / -5 Laboratory Tests Past 24 Hrs 11/30/18 11/30/18 11/30/18 16:40 16:40 20:49 WBC 12.6 H RBC 3.31 L Hgb 11.4 L Hct 34.2 L MCV 103.3 H MCH 34.4 H MCHC 33.3 RDW Std Deviation 54.5 H RDW Coeff of Kirsten 14.3 Plt Count 241 MPV 10.2 Immature Gran % (Auto) 0.500 Neut % (Auto) 85.7 H Lymph % (Auto) 5.6 L [place] % (Auto) 7.2 Eos % (Auto) 0.8 Baso % (Auto) 0.2 Absolute Neuts (auto) 10.8 H Absolute Lymphs (auto) 0.71 L Nucleated RBC % 0 Sodium 136 Potassium 4.1 Chloride 97 L Carbon Dioxide 29.0 Anion Gap 10 BUN 30 H Creatinine 5.68 H Estim Creat Clear Calc 10.51 Est GFR (MDRD) Af Amer 13 L Est GFR (MDRD) Non-Af 10 L BUN/Creatinine Ratio 5.3 L Glucose 302 H Calcium 8.3 L Magnesium 2.5 Troponin I 0.045 0.301 H 11/30/18 12/01/18 12/01/18 23:25 02:12 02:12 WBC 8.4 RBC 2.84 L Hgb 9.6 L Hct 29.1 L MCV 102.5 H MCH 33.8 H MCHC 33.0 RDW Std Deviation 53.0 H RDW Coeff of Kirsten 14.1 Plt Count 217 MPV 9.8 Immature Gran % (Auto) 0.400 Neut % (Auto) 72.3 H Lymph % (Auto) 15.1 L [place] % (Auto) 9.8 Eos % (Auto) 2.0 Baso % (Auto) 0.4 Absolute Neuts (auto) 6.1 Absolute Lymphs (auto) 1.27 Nucleated RBC % 0 Sodium 136 Potassium 3.9 Chloride 102 Carbon Dioxide 27.0 Anion Gap 7 BUN 36 H Creatinine 6.08 H Estim Creat Clear Calc 9.81 Est GFR (MDRD) Af Amer 12 L Est GFR (MDRD) Non-Af 10 L BUN/Creatinine Ratio 5.9 L Glucose 133 H Calcium 8.0 L Magnesium Troponin I 0.618 H* 12/01/18 02:12 WBC RBC Hgb Hct MCV MCH MCHC RDW Std Deviation RDW Coeff of Kirsten Plt Count MPV Immature Gran % (Auto) Neut % (Auto) Lymph % (Auto) [place] % (Auto) Eos % (Auto) Baso % (Auto) Absolute Neuts (auto) Absolute Lymphs (auto) Nucleated RBC % Sodium Potassium Chloride Carbon Dioxide Anion Gap BUN Creatinine Estim Creat Clear Calc Est GFR (MDRD) Af Amer Est GFR (MDRD) Non-Af BUN/Creatinine Ratio Glucose Calcium Magnesium Troponin I 1.510 H* POC Glucose 12/01/18 11/30/18 06:25 22:26 POC Glucose 111 H 198 H Medical Necessity - Tobacco Use Smoking Status: Never smoker Assessment/Plan All Active Problems (Last Reviewed 09/30/18 @ 13:10 by Mirella Singletary) Chest pain (Acute) S/P coronary artery stent placement (Resolved ~10/28/18) Problem with dialysis access (Acute) Obesity (Acute) Nonrheumatic mitral valve regurgitation (Acute) Rheumatic tricuspid insufficiency (Acute) Uncontrollable nausea and vomiting (Acute) Left flank pain (Acute) Non-STEMI (non-ST elevated myocardial infarction) (Acute) Unstable angina (Acute) Acute on chronic renal insufficiency (Acute) Hyperkalemia (Acute) Impressions 1. NSTEMI due to occluded RCA stent. Pt told Dr. Bernal he was compliant with all his medications but, he told me that he has likely forgotten to take his meds at times. S/P angioplasty of the mid RCA occluded stent. Transferred to ICU post procedure. Continue dual antiplatelet drugs for the next 1 year including aspirin and Brilinta. Continue Entresto, pravastatin and carvedilol. 2. CAD 3. ESRD on HD - notify [facility] of patients admission and need for HD today 4. DM II -hemoglobin A1c in September 2018 was 8.1%. Will restart Tradjenta. Continue sliding scale insulin coverage AC and HS. May need to consider 1 dose Lantus daily to get the HGBA1C under 7 in light of CAD with occluded stent after only 2 weeks. Optimize BP and BS control. 5. Hyperlipidemia 6. Hypertension 7. Mild ischemic cardiomyopathy with a 50% ejection fraction on left ventriculogram 8. Paroxysmal atrial fibrillation-not on anticoagulation Discussed with Michelet and orders have been written. Code Visit Inpatient E&M: 19829 [facility] L3
--- NOTE | 2018-12-01 09:32 | CL.I_ITS ---
Patient Name: CAITLIN CRUZ Study Date: 12/01/2018 Performing: Natalie Paredes MD Ht: 66.93 inches 170 cm : 1945 Wt: 165.35 lbs 75 kg Age: 73 Gender: male BSA: 1.86 PROCEDURE(S) PERFORMED [id number], SINGLE CORONARY ARTERY CLINICAL PROFILE AND CO-MORBIDITIES Indications: ACS <= 24 hrs Heart Failure: None Stress/Imaging Stress/Image Study Performed: No CONCLUSIONS Successful PTCA of stent thrombosis/restenosis in mRCA. RECOMMENDATIONS Follow up with Dr. Sy Wu for at least 12 months Routine post interventional care DESCRIPTION OF PROCEDURE The patient arrived to the procedure lab. The risks and benefits of the procedure as well as a full d escription of our services here and current unavailability of surgical backup were fully explained to the patient and/or their significant other prior to the catheterization. The Timeout was completed, verifying the correct patient and procedure. The patient's procedural site was prepped and draped in the usual fashion. Local anesthetic was given subcutaneously to right radial region with Lidocaine 2% Using a modified Seldinger technique,arterial access was obtained via the right radial artery, a 6Fr sheath was inserted. Left Coronary Artery selective angiography was then performed in multiple views using a 5 Fr. 4.0 [place] catheter. Right Coronary Artery selective angiography was then performed in multiple views using a 5 Fr. 4.0 [place] catheter. Left Coronary Artery selective angiography was perfo rmed in multiple views using a 5 Fr. JL3.5 catheter. Left Ventriculography was performed in BHANDARI projection using a 5 Fr. Pigtail catheter. LV to AO pullback pressures were then recorded. JR 4 Guide catheter was inserted and engaged into the RCA. [place] Guide wire was advanced to the RCA. Emerge 3.0 x 12 Balloon catheter was inserted. Balloon catheter was advanced across lesio n in the right coronary, mid. PTCA balloon inflated at 10 atms for 43 secs. PTCA balloon inflated at 10 atms for 25 secs. PTCA balloon inflated at 10 atms for 15 secs. PTCA balloon inflated at 14 atms f or 45 secs. PTCA balloon inflated at 14 atms for 34 secs. Angiogram performed post balloon dilatation . NC Emerge 3.5 x 12 Balloon catheter was inserted. Balloon catheter was advanced across lesion in th e right coronary, mid. PTCA balloon inflated at 18 atms for 30 secs. Angiogram performed post balloon dilatation. The arterial sheath was pulled and a TR Band was applied for hemostasis INTERVENTION INFORMATION LESION SITE: RCA (Mid) Lesion Complexity: High/C, chronic total occlusion: No, lesion at bifurcation: No, thrombus present: Yes, lesion length: 30 mm, culprit lesion: Yes, Previously treated lesion: Yes, Timeframe of previous treatment: 1-5 months, Previously treated with a stent: Yes Stent Type: with HASMUKH, In-stent restenosi s: Yes Pre Stenosis: 100 % Pre intervention JAMILA flow: 0 PROCEDURE: Balloon Angioplasty Post Stenosis: 0 % Post intervention JAMILA flow: 3 Lesion Devices: Cordis 6 Fr JR4 100cm Guide Catheter Live .014 BMW [place] Straight 190cm Torsten Sci EMERGE MR 3.00x12 BALLOON Torsten Sci NC EMERGE MR 3.50x12 BALLOON COMPLICATIONS No Complications PROCEDURE MEDICATIONS Fentanyl 50 mcg IV Versed 1 mg IV Oxygen: 2 L/min via nasal cannula Heparin diluted in 23cc Heparinized saline. Patient given 6cc IA of this solution. 12/01/2018 07:51:4 2 Heparin 6000 unit(s) IV 12/01/2018 08:43:25 Verapamil 2.5mg, Ntg 100mcgs, 2000 units of Heparin diluted in 23cc Heparinized saline. Patient give n 6cc IA of this solution. 12/01/2018 07:51:42 SUMMARY OF HEMODYNAMIC DATA Time AIR REST ECG 07:36:07 AO 86/63 (75) SA 07:55:16 AO 95/69 (83) 07:58:12 LV 129/11, 16 08:13:41 LV 129/11, 16 08:13:47 LV 126/5, 17 08:14:59 LV 129/8, 16 08:15:05 LVp 128/5, 17 08:15:09 AOp 126/64 (88) 08:15:14 RM AIR REST 08:23:41 Signed By Natalie Paredes MD On 12/01/2018 09:32:22 Natalie Paredes MD
--- NOTE | 2018-12-01 09:45 | EKG12_ITS ---
Test Reason : AM EKG Blood Pressure : / mmHG Vent. Rate : 066 BPM Atrial Rate : 066 BPM P-R Int : 296 ms QRS Dur : 138 ms QT Int : 460 ms P-R-T Axes : 068 052 210 degrees QTc Int : 482 ms Sinus rhythm with 1st degree A-V block Right bundle branch block T wave abnormality, consider lateral ischemia Abnormal ECG When compared with ECG of 30-NOV-2018 20:40, MANUAL COMPARISON REQUIRED, DATA IS UNCONFIRMED Confirmed by LEILANI ARREOLA ([id number]), primer expeditor and drier LAITH OSULLIVAN ([id number]) on 12/07/2018 1:12:14 PM Referred By: Lilibeth Cole Confirmed By:LEILANI ARREOLA
--- NOTE | 2018-12-01 09:58 | CASEMGMT ---
YSABEL AGUERO Note- Cardiac cath with intervention. Pt was on Brilinta previously. Pt independent with activity, SBA. DC Plan: Home on discharge. Consult YSABEL AGUERO if dc concerns or needs arise. Andrew VENEGAS RN ACM
[2018-12-01] MEDS: 0.9% Normal Saline 1,000 ML 60 ML IV (10:00)
[2018-12-01] MEDS: Furosemide 80 MG Tablet PO ×2 (10:21→21:06)
[2018-12-01 11:16] LABS: Bedside Glucose 138 mg/dL (70-110)
--- NOTE | 2018-12-01 13:18 | CRPHASE1_ITS ---
Patient Communication Former Patient:: Phase I - PT REFUSES DUE TO MULTIPLE MEDICAL ISSUES PHII Cardiac Rehab Discussed with Patient:: Yes Guide to Cardiac Rehab Given to Patient:: Yes Cardiac Rehab Facility Choice List Given to Patient:: Yes Choice Program [facility] CR PHII:: Communication Given to CR, Refer to [facility] Man:: Meet Paredes Refer Phase II Cardiac Rehab:: No - PT REFUSED Risk Factors/Lifestyle Family History: Family History (Last Reviewed 09/30/18 @ 13:10 by Mirella Singletary) Mother Breast cancer Myocardial infarction CAD (coronary artery disease) Father Colon cancer Hypertension Myocardial infarction Other Family history of hypertension Cardiac Rehabilitation Info Cardiac Rehabilitation Program Information: Cardiac Rehabilitation is important for patients like you who are recovering from a heart problem. Cardiac rehabilitation programs are recognized as integral to the continued care of the patient with coronary heart disease. The cardiac rehabilitation program is designed to optimize a patient's physical, psychological, and social functioning. Health critical care physician assistant work in cardiac rehabilitation programs and assist you with getting the treatments you need to get stronger and healthier - like exercise, healthy eating habits, and medications. Cardiac rehabilitation has been show to help people with heart problems live longer and have better life enjoyment than people who do not go to cardiac rehabilitation. Please contact the Cardiac Rehabilitation Program at [facility] at in two weeks if you have not heard from them.
--- NOTE | 2018-12-01 13:22 | CRPH1.INSTRU ---
General Education CAD and cardiac anatomy and function:: Not instructed Explanation of diagnoses and procedures:: Not instructed Sign/Symptoms of MN:: Not instructed Antiplatelet therapy: Not instructed Proper use of NTG-SL: Not instructed Emergency procedures and activation of EMS: Not instructed Compliance of all prescribed medications: Not instructed - PT REFUSED CR DUE MULTIPLE HEALTH ISSUES
[2018-12-01] MEDS: Lidocaine/Prilocaine HCl 5 GM Tube 1 GM TOPICAL (15:03)
--- NOTE | 2018-12-01 15:03 | CON.PCM_ITS ---
Problem List (1) ESRD (end stage renal disease) on dialysis Status: Chronic Consultation - Renal PCP/ Referring MD: Requesting physician: [] Primary care physician: Sean Medina MD - History of Present Illness History of Present Illness: The patient is a 73 year old M past medical history of coronary disease status post multiple PCI, end-stage renal disease on Thursday with a scheduled. Patient presented to [facility] with acute chest pain. Troponin was positive. Patient was taken to cardiac cath where he had found to have right ICA occluded stent. Patient had angioplasty with new stent placement. His chest pain has resolved. Patient is currently in CVICU unit. Renal team was consulted for end-stage renal disease care. Last hemodialysis session was on November 29. Patient has left upper extremity AV fistula. Review of system: 12 system review is negative [] - Allergies Allergies: Allergies codeine Allergy (Verified 11/12/18 14:50) Itching - Current Medications Current Medications: Current Medications Acetaminophen (Tylenol) 650 mg PO Q6H PRN PRN PRN Reason: Non-cardiac pain (mod-severe) Hydrocodone Bitart/Acetaminophen ([place] 5mg-325mg) 1 - 2 tablet PO Q6H PRN PRN PRN Reason: MOD-SEVERE PAIN (4-10/10) Last Admin: 11/30/18 23:59 Dose: 2 tablet Documented by: Al Hydroxide/Mg Hydroxide (Mylanta Ii) 15 - 30 ml PO Q4H PRN PRN PRN Reason: INDIGESTION Albuterol Sulfate (Ventolin Aerosols) 2.5 mg INHALATION Q2H PRN PRN PRN Reason: dyspnea, wheezing Aspirin (Ecotrin) 81 mg PO DAILY@0800 [facility] Last Admin: 12/01/18 06:58 Dose: 81 mg Documented by: Atropine Sulfate () 0.5 mg IV UD PRN PRN Reason: HR <50 bpm Carvedilol (Coreg) 6.25 mg PO BID [facility] Last Admin: 12/01/18 06:58 Dose: 6.25 mg Documented by: Dextrose (D50w Syringe) 0 gm IV X1 PRN; Protocol PRN Reason: Hypoglycemia Furosemide (Lasix) 80 mg PO BIDLX [facility] Last Admin: 12/01/18 10:21 Dose: 80 mg Documented by: Glucagon () 1 mg IM .X1 PRN PRN Reason: Hypoglycemia Heparin Sodium (Beef Lung) (Heparin 500 Unit/5 Ml (100/Ml)) 500 unit IV UD PRN PRN Reason: HEPARIN FLUSH Hydralazine HCl (Apresoline Iv) 10 mg IV Q4H PRN PRN PRN Reason: SBP > 160 Sodium Chloride () 250 mls @ 15 mls/hr IV .[id number] PRN PRN Reason: SALINE FLUSH Sodium Chloride () 1,000 mls @ 60 mls/hr IV .[id number] [facility] Last Admin: 12/01/18 10:00 Dose: 60 mls/hr Documented by: Insulin Human Lispro (Humalog Kwikpen (Bkc)) 0 unit SC ACHS [facility]; Protocol Last Admin: 12/01/18 10:21 Dose: Not Given Documented by: Labetalol HCl (Trandate) 5 mg IV X1 PRN PRN Reason: SBP > 160 when pulling sheath Stop: 12/03/18 09:36 Lidocaine/Prilocaine (Emla Cream W/Tegaderm) 1 gm TOPICAL MoWeFr [facility]; Protocol Linagliptin (Tradjenta) 5 mg PO QHS [facility] Magnesium Hydroxide (Milk Of Magnesia) 30 ml PO DAILY PRN PRN Reason: Constipation Morphine Sulfate () 1 - 2 mg IV Q4H PRN PRN PRN Reason: PAIN Last Admin: 12/01/18 02:53 Dose: 1 mg Documented by: Nitroglycerin (Nitrostat) 0.4 mg SUBLINGUAL Q5M PRN PRN Reason: CARDIAC/CHEST PAIN Ondansetron HCl (Zofran) 4 mg IV Q8H PRN PRN PRN Reason: NAUSEA/VOMITING Pravastatin Sodium (Pravachol) 80 mg PO DAILY@2200 [facility] Last Admin: 11/30/18 22:18 Dose: 80 mg Documented by: Sacubitril/Valsartan (Entresto 24 Mg-26 Mg Tablet) 1 each PO BID [facility] Last Admin: 12/01/18 06:58 Dose: 1 each Documented by: Sodium Chloride () 10 - 40 ml IV UD PRN PRN Reason: SALINE FLUSH Sodium Chloride () 500 ml IV BOLUS PRN PRN Reason: VASO-VAGAL PROTOCOL Ticagrelor (Brilinta) 90 mg PO BID [facility] Last Admin: 12/01/18 06:58 Dose: 90 mg Documented by: - Past Medical History Past Medical History (Chronic Problems): Chronic Problems (Last Reviewed 09/30/18 @ 13:10 by Mirella Singletary) HLD (hyperlipidemia) (Chronic) CAD (coronary artery disease) (Chronic) Essential hypertension (Chronic) ESRD (end stage renal disease) on dialysis (Chronic) Old myocardial infarction (Chronic) 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, 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) Antihyperlipidemic Family history of hypertension (Chronic) Other secondary pulmonary hypertension (Chronic) Subendocardial ischemia (Chronic) Ischemic cardiomyopathy (Chronic) Paroxysmal atrial fibrillation (Chronic) Atherosclerotic heart disease of [place] coronary artery without angina pectoris (Chronic) PTCA/HASMUKH to proximal RCA, mid LPL branch of the LCx, in mid LCx in April 2017; angioplasty and PCI to mid and distal RCA in 2014; thrombectomy and PCI to proximal, mid, and distal RCA in 2011; Type II diabetes mellitus (Chronic) Hyperlipidemia associated with type 2 diabetes mellitus (Chronic) S/P PTCA (percutaneous transluminal coronary angioplasty) (Chronic) thrombectomy with PTCA with HASMUKH to proximal, mid and distal RCA 03/03, PTCA with stenting to mid & distal RCA 07/05, PTCA of proximal LAD 07/05 HLD (hyperlipidemia) (Chronic) - Past Surgical History Surgical History: angioplasty, - - Significant PCI history, most recently October 28, 2018, 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 - Social History Smoking Status: Never smoker Alcohol: Occasional Drugs: None - Family History Maternal Family History: Family History (Last Reviewed 09/30/18 @ 13:10 by Mirella Singletary) Mother Breast cancer Myocardial infarction CAD (coronary artery disease) Father Colon cancer Hypertension Myocardial infarction Other Family history of hypertension History Items: Cancer, Heart Disease, Hypertension Paternal Family History: Family History (Last Reviewed 09/30/18 @ 13:10 by Mirella Singletary) Mother Breast cancer Myocardial infarction CAD (coronary artery disease) Father Colon cancer Hypertension Myocardial infarction Other Family history of hypertension History Items: Cancer, Heart Disease, Hypertension Patient Problems: Active and Suspected Problems (Last Reviewed 09/30/18 @ 13:10 by Mirella Singletary) Chest pain (Acute) - Physical Exam General: Alert, Oriented x3 HEENT: Atraumatic Oral: Moist Mucosa Neck: Supple, No JVD Lungs: Clear to auscultation, Normal air movement, No rhonchi, No wheeze Cardiovascular: Regular rate, Regular Rhythm, Normal S1, Normal S2 Abdomen: Bowel Sounds Present, Soft, Non Tender, Non-Distended Extremities: No clubbing, No cyanosis, No edema Skin: No rashes Musculoskeletal: No Tenderness to Palpation of Joints or Extremities Lymphatic: No Cervical, Supraclavicular, or Inguinal Adenopathy Neurological: Cranial nerves II-XII grossly intact, Neuro grossly intact Psych/Mental Status: Appropriate Vital Signs Temp Pulse Resp BP Pulse Ox 98.3 F 76 20 H 100/46 L 97 12/01/18 12:00 12/01/18 12:00 12/01/18 12:00 12/01/18 12:00 12/01/18 12:00 Oxygen Delivery Method Room Air Weight: 75.3 kg Body Mass Index (BMI) 25.9 Finger Stick Blood Glucose 123 Intake and Output for Last 24 Hours 11/29/18 11/30/18 12/01/18 23:59 23:59 23:59 Intake Total 290 / 290 Output Total 375 / 375 Balance -85 / -85 Laboratory Tests Past 24 Hrs 11/30/18 11/30/18 11/30/18 16:40 16:40 20:49 WBC 12.6 H RBC 3.31 L Hgb 11.4 L Hct 34.2 L MCV 103.3 H MCH 34.4 H MCHC 33.3 RDW Std Deviation 54.5 H RDW Coeff of Kirsten 14.3 Plt Count 241 MPV 10.2 Immature Gran % (Auto) 0.500 Neut % (Auto) 85.7 H Lymph % (Auto) 5.6 L Patrick % (Auto) 7.2 Eos % (Auto) 0.8 Baso % (Auto) 0.2 Absolute Neuts (auto) 10.8 H Absolute Lymphs (auto) 0.71 L Nucleated RBC % 0 Sodium 136 Potassium 4.1 Chloride 97 L Carbon Dioxide 29.0 Anion Gap 10 BUN 30 H Creatinine 5.68 H Estim Creat Clear Calc 10.51 Est GFR (MDRD) Af Amer 13 L Est GFR (MDRD) Non-Af 10 L BUN/Creatinine Ratio 5.3 L Glucose 302 H Calcium 8.3 L Magnesium 2.5 Troponin I 0.045 0.301 H 09/10/19 09/11/19 09/11/19 23:25 02:12 02:12 WBC 8.4 RBC 2.84 L Hgb 9.6 L Hct 29.1 L MCV 102.5 H MCH 33.8 H MCHC 33.0 RDW Std Deviation 53.0 H RDW Coeff of Kirsten 14.1 Plt Count 217 MPV 9.8 Immature Gran % (Auto) 0.400 Neut % (Auto) 72.3 H Lymph % (Auto) 15.1 L Patrick % (Auto) 9.8 Eos % (Auto) 2.0 Baso % (Auto) 0.4 Absolute Neuts (auto) 6.1 Absolute Lymphs (auto) 1.27 Nucleated RBC % 0 Sodium 136 Potassium 3.9 Chloride 102 Carbon Dioxide 27.0 Anion Gap 7 BUN 36 H Creatinine 6.08 H Estim Creat Clear Calc 9.81 Est GFR (MDRD) Af Amer 12 L Est GFR (MDRD) Non-Af 10 L BUN/Creatinine Ratio 5.9 L Glucose 133 H Calcium 8.0 L Magnesium Troponin I 0.618 H* 12/01/18 02:12 WBC RBC Hgb Hct MCV MCH MCHC RDW Std Deviation RDW Coeff of Kirsten Plt Count MPV Immature Gran % (Auto) Neut % (Auto) Lymph % (Auto) Patrick % (Auto) Eos % (Auto) Baso % (Auto) Absolute Neuts (auto) Absolute Lymphs (auto) Nucleated RBC % Sodium Potassium Chloride Carbon Dioxide Anion Gap BUN Creatinine Estim Creat Clear Calc Est GFR (MDRD) Af Amer Est GFR (MDRD) Non-Af BUN/Creatinine Ratio Glucose Calcium Magnesium Troponin I 1.510 H* POC Glucose 12/01/18 12/01/18 11/30/18 10:20 06:25 22:26 POC Glucose 138 H 111 H 198 H Assessment/Plan All Active Problems (Last Reviewed 09/30/18 @ 13:10 by Mirella Singletary) Chest pain (Acute) S/P coronary artery stent placement (Resolved ~10/28/18) Problem with dialysis access (Acute) Obesity (Acute) Nonrheumatic mitral valve regurgitation (Acute) Rheumatic tricuspid insufficiency (Acute) Uncontrollable nausea and vomiting (Acute) Left flank pain (Acute) Non-STEMI (non-ST elevated myocardial infarction) (Acute) Unstable angina (Acute) Acute on chronic renal insufficiency (Acute) Hyperkalemia (Acute) 1-end-stage renal disease on Thursday hemodialysis schedule. Last hemodialysis session was November 29. Hemodialysis session was arranged for today. Hemodialysis access is left upper extremity AV fistula. 2-anemia: Hemoglobin 9.6. We will hold on JANET for now. 3-hypertension: Blood pressure is elevated. Will monitor blood pressure after hemodialysis and ultrafiltration. Continue same blood pressure medications for now. 4-chest pain due to non-ST PA. Status post cardiac cath with angioplasty of the RCA occluded stent. Management as per the cardiology team. Thank you for allowing me to participate in Mr. South's care. Please call if any question or concern at [phone] Paolo Hughes MD
[2018-12-01 18:21] LABS: Bedside Glucose 142 mg/dL (70-110)
[2018-12-01] MEDS: Pravastatin 80 MG Tablet PO (21:06)
[2018-12-01] MEDS: LINAGLIPTIN 5 MG TABLET PO (21:06)
--- NOTE | 2018-12-01 21:10 | DIALYSIS ---
Pt tolerated 3.5hr HD tx well. Net UF -500ml. See flow record for tx data.
--- NOTE | 2018-12-01 21:19 | NURSING ---
patient disconnected heart monitor, pulse ox, and BP cuff, stating he wants the hell out of here. Educated on risks of leaving and risk of bleeding out. Patient in agreeance to stay and be placed back on monitor, refused blood glucose check, took PM meds. Will continue to monitor.
--- NOTE | 2018-12-01 23:06 | NURSING ---
pt refused BP to be taken again for 2300.
[2018-12-02] VITALS (12 sets, daily range): BP systolic 128–165; BP diastolic 27–93; PULSE 63–72; RESP 14–19; TEMP 36.9–37.4; O2SAT 90–99
[2018-12-02 04:03] LABS: Hematocrit 32.8 % (40-54); Hemoglobin 10.7 g/dL (13.0-16.5); Mean Corp Hgb Conc 32.6 g/dL (32-36); Mean Corpuscular Hgb 33.4 pg (27.0-32.0); Mean Corpuscular Volume 102.5 fL (80-94); Mean Platelet Vol. 10.3 fl (6.2-12.0); Platelet Count 232 K/mm3 (150-450); RBC Distribution Width CV 14.2 % (11.6-14.6); RBC Distribution Width SD 53.8 fl (35.1-43.9); White Blood Count 8.6 K/mm3 (4.4-11.0)
[2018-12-02 04:09] LABS: ALB/GLOB Ratio 0.7 RATIO (0.9-2.4); AST(SGOT) 46 U/L (15-37); Alanine Aminotransfer ALT/SGPT 14 U/L (16-61); Albumin, Serum 2.8 g/dL (3.2-5.0); Alkaline Phosphatase 98 U/L (45-117); Anion Gap 9 (5-15); BUN 18 mg/dL (7-18); BUN/Creat Ratio 4.7 RATIO (10-20); Calcium,Total 7.9 mg/dL (8.5-10.1); Chloride 100 mmol/L (98-107); Creatinine, Serum 3.84 mg/dL (0.70-1.30); EST Glomerular Filtration Rate 16 mL/min (>60); Est Glom Filt Rate - Afr Amer 20 mL/min (>60); Estimated Creatinine Clearance 15.54 ml/min; Glucose 135 mg/dL (74-106); Potassium 4.1 mmol/L (3.5-5.1); Protein, Total 6.8 g/dL (6.4-8.2); Sodium Level 138 mmol/L (136-145)
--- NOTE | 2018-12-02 07:43 | PN.CARD_ITS ---
Subjectve: Patient seen and evaluated. Appears to be doing well. Objective: Vital Signs Temp Pulse Resp BP Pulse Ox 99.0 F 65 14 155/44 H 99 12/02/18 04:00 12/02/18 07:00 12/02/18 07:00 12/02/18 07:00 12/02/18 07:00 Oxygen Delivery Method Room Air Weight: 166 lb 0.129 oz Body Mass Index (BMI) 25.9 Finger Stick Blood Glucose 123 Intake and Output for Last 24 Hours 11/30/18 12/01/18 12/02/18 23:59 23:59 23:59 Intake Total 1120 / 1120 120 / 120 Output Total 1325 / 1325 300 / 300 Balance -205 / -205 -180 / -180 General: Awake, Alert, Oriented x 3 HEENT: PERRL, EOMI, Sclera Non Icteric Neck: Supple, Good ROM, No Lymph Node Enlargement Lungs: Clear to auscultation Cardiovascular: Regular Rhythm, Normal S1, Normal S2, No Murmurs, No Rubs, No Gallops Vascular: No Carotid Bruits, Normal Femoral Pulses, Normal Radial Pulses, Normal Dorsalis Pedal Pulse, Normal Posterior Tibial Pulses Abdomen: Bowel Sounds Present, Soft, Non Tender, No HSM, No Organomegaly Extremities: No Cyanosis, No Clubbing, No edema Musculoskeletal: No Tenderness Skin: No Rashes Neurological: No Focal Motor or Sensory Deficit 12/02/18 03:30: WBC 8.6, RBC 3.20 L, Hgb 10.7 L, Hct 32.8 L, MCV 102.5 H, MCH 33.4 H, MCHC 32.6, Plt Count 232, MPV 10.3 12/02/18 03:30: Sodium 138, Potassium 4.1, Chloride 100, Carbon Dioxide 29.0, Anion Gap 9, BUN 18, Creatinine 3.84 H, Est GFR (MDRD) Af Amer 20 L, Est GFR (MDRD) Non-Af 16 L, BUN/Creatinine Ratio 4.7 L, Glucose 135 H, Calcium 7.9 L, Total Bilirubin 0.90 Rhythm: EKG: ECHO: Stress Test: Cardiac Cath: PCI: CT Surgery: Holter monitor: EPS: PPM: CXR: Chest CT Scan: Medical Necessity - Tobacco Use Smoking Status: Never smoker Assessment/Plan 1. Coronary artery disease involving [place] coronary artery of [place] heart without angina pectoris I25.10-non-ST elevation myocardial infarction He underwent angioplasty and stenting of the right coronary artery which was totally occluded successfully. He is done well he is being dialyzed this morning. The plan is to discharge him for outpatient follow-up. 2. S/P coronary artery stent placement Z95.5 PTCA/HASMUKH of the prox LCX and PTCA/HASMUKH of the mid RCA 10/28/18 Continue current treatment plan as outlined above. 3. Ischemic cardiomyopathy I25.5 Plan His most recent heart catheterization from 10/28/2018 showed an LV gram of 50%. He denies any shortness of breath or lower extremity edema. He will continue with fluid management per dialysis. He will continue with current beta-bishnu and diuretic. He will continue with dialysis therapy. We will continue to monitor. 4. Paroxysmal atrial fibrillation I48.0 Plan He appears to be maintaining regular rhythm. He will continue current medical therapy. He is not on oral anticoagulation. 5. Essential (primary) hypertension I10 Plan Patient's blood pressure is well-controlled. His blood pressure was however elevated in the emergency room and appears to be better now. We will continue to monitor. We will not make any medication regimen changes. He was reminded with dialysis therapy his blood pressure had to be monitored closely and that medication adjustment may be required. 6. Hyperlipidemia, unspecified hyperlipidemia type E78.5 Plan Lipid panel from September 2018 showed cholesterol: 130, HDL: 39, LDL: 64, and triglycerides: 136. He will continue current high-dose statin medication. Thank you for allowing me to participate in the care of your patient. Please don't hesitate to call if any issues arise He can be discharged for outpatient follow-up with Dr. Dan.
[2018-12-02] MEDS: Aspirin E.C. 81 MG Tablet PO (07:57)
[2018-12-02] MEDS: SACUBITRIL/VALSARTAN 24/26 MG TABLET 1 EACH PO (07:57)
[2018-12-02] MEDS: TICAGRELOR 90 MG TABLET PO (07:57)
[2018-12-02] MEDS: Carvedilol 6.25 MG Tablet PO (07:58)
[2018-12-02] MEDS: Furosemide 80 MG Tablet PO (07:58)
--- NOTE | 2018-12-02 08:45 | DCINST_ITS ---
- Discharge Diagnoses Current Active Problems: Current Active and Chronic Problems (Last Updated 12/01/18 @ 17:24 by Mirella Singletary) Presence of stent in coronary artery (Chronic ~12/01/18) thrombectomy with PTCA with HASMUKH to proximal, mid and distal RCA 03/03; PTCA with stenting to mid & distal RCA 07/05, PTCA of proximal LAD 07/05; Successful PTCA/HASMUKH of the of proxima RCA in stent restenosis, utilizing a 2.0 x 12 Angiosculpt, followed by a 3.0 x 33 Elunira HASMUKH; 85%-->0%, no dissection.Successful PTCA/HASMUKH of the mid LPL branch of the LCX with a 3.0 x 16 Promus Synergy; 75%-->0%, no dissection; Successful PTCA/HASMUKH of the mid LCX with a 2.75 x 16 Promus Synergy; 75%-->0%, no dissection. No PCI of smal OM branch perfomed due to small vessel disease. 05/20/18; Successful PTCA/HASMUKH proximal LCX with a 3.0 x 16 Promus Synergy, 85%-->0%, no dissection. Successful PTCA/HASMUKH mid RCA ISR with a 2.5 x 10 Angiosculpt, followed with a 3.0 x 38 Promus Synergy, post dilated with a 3.0 and 3.5 x 12 NC balloon; 85%-->0%, no dissection. 10/28/18; Successful PTCA of stent thrombosis/restenosis in mid RCA. 12/01/18 Chest pain (Acute) HLD (hyperlipidemia) (Chronic) You will use the following diet at home:: Calorie/Carbohydrate Controlled (specify 1200, 1400, etc), Cardiac - low salt, low fat, Renal (restricted pro tein/sodium) Your food should be the consistency of: Regular Your liquids should be the consistency of: Regular/Thin Discharge Activity: - - work up to walking 30 minutes a day- no hills until they clear you to do hills in cardiac rehab. No lifting >5-10 lbs Lifting Restrictions: 5-10 lbs Call your doctor if your incision/area has: Continuous Slow Oozing, Sudden Increased Bleeding, Increased Pain/ Swelling, Increased Redness, Foul Smelling Discharge, Swelling at the incision site Call your doctor if you observe: Fever of 101 or Higher, Shortness of breath, Dizziness, Fainting spells, Swelling in the ankles, Chest pain Remove Dressing in (days):: 1 Cleanse incision/area with: Soap & Water Instructions: What Can Cause Depression?, Counseling for Depression, Depress ion: Tips to Help Yourself, Know the Signs and Symptoms of Depression Additional Instructions: I have given you a prescription for an anti-depressant called Remeron(also called Mirtazapine). I chose this medication because you take it at bedtime and it helps you sleep. Chasity takes at least 2 weeks to get significant benefit from an antidepressant but, it can help with sleep right away. The best treatment for depression is a combination of therapy and medication. When you are depressed you do not take care of yourself. You do not take your meds or go to your doctor's appts. you get irritable and don't care if you live or .......I know you are not ready to Todd because you come back to the hospital when you have problems. If you decide you wqant help for depressions please call me and I will do my best to help you. Being depressed is a terrible way to feel because you NEVER feel good. My cell is [phone]. There is an excellent therapy place in [place] on [facility]......there are no 18 year olds there. The phone # is [phone] I have sent other patients there and they have gotten good help. Take care of your self Todd. Pending Tests on Discharge: none Allergies/Adverse Reactions: Allergies codeine Allergy (Verified 11/12/18 14:50) Itching Medications to take at Discharge aspirin 81 mg tablet,delayed release 81 mg PO DAILY 09/30/18 linagliptin 5 mg tablet 5 mg PO QHS 09/30/18 pravastatin 80 mg tablet 80 mg PO DAILY #30 tab 09/30/18 carvedilol 6.25 mg tablet 6.25 mg PO BID #60 tab 11/12/18 Furosemide [Lasix] 80 mg PO BID 11/30/18 Sacubitril/Valsartan 24/26 mg [Entresto 24 mg-26 mg Tablet] 1 tab PO DAILY 11/30/18 Clopidogrel Bisulfate [Plavix] 75 mg PO DAILY #30 tab 12/02/18 Mirtazapine [Remeron] 7.5 mg PO QHS #30 tab 12/02/18 The following prescriptions were given: Clopidogrel Bisulfate [Plavix] 75 mg PO DAILY #30 tab Prescription Printed Mirtazapine [Remeron] 7.5 mg PO QHS #30 tab Prescription Printed Primary Care Physician: Sean Medina MD [Primary Care Provider] - Please follow up with your Primary Care Physician in: 5-7 days Test Results: Test results from this visit will be discussed in further detail at your follow- up appointment, if applicable. Please Follow Up With: Trevor Bernal MD When: 2-4 weeks Proposed Discharge Date: 12/02/18
[2018-12-02] MEDS: Acetaminophen 325 MG Tablet 650 MG PO (09:07)
--- NOTE | 2018-12-02 09:18 | PCM.DC.SUM ---
Discharge Date and Diagnosis Date of Admission: 11/30/18 Date of Discharge: 12/02/18 - Primary Discharge Diagnosis Active and Suspected Problems (Last Updated 12/01/18 @ 17:23 by Mirella Singletary) NSTEMI Post PTCA (Acute) - mid RCA for total occlusion - Secondary Discharge Diagnosis Chronic Problems (Last Updated 12/01/18 @ 17:24 by Mirella Singletary) Non compliance w medication regimen (Chronic) Depression (Chronic) Presence of stent in coronary artery (Chronic ~12/01/18) thrombectomy with PTCA with HASMUKH to proximal, mid and distal RCA 03/03; PTCA with stenting to mid & distal RCA 07/05, PTCA of proximal LAD 07/05; Successful PTCA/HASMUKH of the of proxima RCA in stent restenosis, utilizing a 2.0 x 12 Angiosculpt, followed by a 3.0 x 33 Elunira HASMUKH; 85%-->0%, no dissection.Successful PTCA/HASMUKH of the mid LPL branch of the LCX with a 3.0 x 16 Promus Synergy; 75%-->0%, no dissection; Successful PTCA/HASMUKH of the mid LCX with a 2.75 x 16 Promus Synergy; 75%-->0%, no dissection. No PCI of smal OM branch perfomed due to small vessel disease. 05/20/18; Successful PTCA/HASMUKH proximal LCX with a 3.0 x 16 Promus Synergy, 85%-->0%, no dissection. Successful PTCA/HASMUKH mid RCA ISR with a 2.5 x 10 Angiosculpt, followed with a 3.0 x 38 Promus Synergy, post dilated with a 3.0 and 3.5 x 12 NC balloon; 85%-->0%, no dissection. 10/28/18; Successful PTCA of stent thrombosis/restenosis in mid RCA. 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) Ischemic cardiomyopathy (Chronic) Nonrheumatic mitral valve regurgitation (Chronic) Rheumatic tricuspid insufficiency (Chronic) Paroxysmal atrial fibrillation (Chronic) Atherosclerotic heart disease of [place] coronary artery without angina pectoris (Chronic) PTCA/HASMUKH to proximal RCA, mid LPL branch of the LCx, in mid LCx in April 2017; angioplasty and PCI to mid and distal RCA in 2014; thrombectomy and PCI to proximal, mid, and distal RCA in 2011; Type II diabetes mellitus (Chronic) Hyperlipidemia associated with type 2 diabetes mellitus (Chronic) Hospital Course and Treatment Imaging Results: Clinical Impression(s) from Imaging Studies Chest X-Ray 11/30/18 16:45 IMPRESSION: There is minimal blunting of the right costo phrenic angle appearing similar to the previous study. Degenerative changes of the thoracic spine. Calcified plaques of the aortic arch. No acute cardiopulmonary disease process is seen. Electronically Signed: Kirt Bravo MD at 17:09 EDT , Service support , Laboratory Results - last 24 hr 12/01/18 12/01/18 12/02/18 10:20 18:15 03:30 WBC 8.6 RBC 3.20 L Hgb 10.7 L Hct 32.8 L MCV 102.5 H MCH 33.4 H MCHC 32.6 RDW Std Deviation 53.8 H RDW Coeff of Kirsten 14.2 Plt Count 232 MPV 10.3 Sodium Potassium Chloride Carbon Dioxide Anion Gap BUN Creatinine Estim Creat Clear Calc Est GFR (MDRD) Af Amer Est GFR (MDRD) Non-Af BUN/Creatinine Ratio Glucose Calcium Total Bilirubin AST ALT Alkaline Phosphatase Total Protein Albumin Globulin Albumin/Globulin Ratio POC Glucose 138 H 142 H 12/02/18 03:30 WBC RBC Hgb Hct MCV MCH MCHC RDW Std Deviation RDW Coeff of Kirsten Plt Count MPV Sodium 138 Potassium 4.1 Chloride 100 Carbon Dioxide 29.0 Anion Gap 9 BUN 18 Creatinine 3.84 H Estim Creat Clear Calc 15.54 Est GFR (MDRD) Af Amer 20 L Est GFR (MDRD) Non-Af 16 L BUN/Creatinine Ratio 4.7 L Glucose 135 H Calcium 7.9 L Total Bilirubin 0.90 AST 46 H ALT 14 L Alkaline Phosphatase 98 Total Protein 6.8 Albumin 2.8 L Globulin 4.0 Albumin/Globulin Ratio 0.7 L POC Glucose Tom Tanner-physician coding specialist/pulmonary medicine Operations: None Procedures: Cardiac catheterization - CORONARY ANGIOGRAPHY DOMINANCE: Co- Dominant LEFT HEART ASSESSMENT Left Ventricular Ejection Fraction: by LV Gram 50 % Inferior Mid Hypokinesis - Severe Depressed Left Ventricular systolic function LEFT MAIN: Mild calcification LEFT ANTERIOR DESCENDING ARTERY: PROX LAD: Previously placed stent has an instent 30 % restenosis DISTAL LAD: Diffusely diseased up to 70 % CIRCUMFLEX ARTERY: PROX CIRC: Previously placed stent is patent OM 1: Proximal - Moderate luminal irregularities up to 50% RIGHT CORONARY ARTERY: PROX RCA: Previously placed stent is occluded Dr. Paredes was consulted and he underwent successful angioplasty of stent thrombosis/restenosis in the mid RCA Summary of Care Provided: The patient is a 73-year-old male with a past medical history of hyperlipidemia, coronary artery disease, hypertension, end-stage renal disease on dialysis, ischemic cardiomyopathy, paroxysmal atrial fibrillation and type 2 diabetes mellitus who presented to the emergency department at [facility] on 11/30/2018 complaining of chest pain. On 10/28/2018 he had successful PTCA/HASMUKH to the proximal LCx and PTCA/HASMUKH to the mid RCA. The pain was constant and described as 10/10 midsternal pain that started after cleaning up his garage. The pain radiated to his left shoulder and the left back. He denied nausea, shortness of breath and diaphoresis. He admitted to not taking all of his medications as instructed. Vital signs at presentation to the emergency department were temp 97.8, pulse rate 79, blood pressure 172/104, respiratory rate 16 and he was 97% saturated on room air. EKG showed sinus rhythm with a first-degree AV block, right bundle branch block and no ST segment elevation. White blood cell count was 12.6 and hemoglobin was 11.4. Platelets were within normal limits. BUN was 30 and the creatinine was 5.68. Potassium was 4.1. Magnesium was normal at 2.5. The initial troponin was 0.045 and the second troponin was 0.618. Chest x-ray showed blunting of the right costophrenic angle with no increased pulmonary vascular congestion and no infiltrates. He was admitted to a monitored bed on PCU and cardiology was consulted. It was felt he should undergo a repeat catheterization and he was taken for the procedure on 12/01/2018. The catheterization showed the previously placed stent to the LAD was patent with diffuse distal LAD disease. The stent to the left circumflex artery was noted to be patent with mild in-stent stenosis and the previously placed stent in the right coronary artery was totally occluded in the midsegment. There was no collateral circulation. The left ventriculogram showed a 50% ejection fraction. The patient was referred to Dr. Tatum for intervention. He underwent successful angioplasty of the mid RCA stent with postprocedure stenosis of 0%. Postprocedure he was transferred to the cardiac care unit and monitored overnight. He was seen by Dr. Hitchcock on 12/02/2018 who felt he could be discharged and scheduled for outpatient follow-up in 2 to 4 weeks. He is irritable and non-compliant. He admitted to being depressed and having insomnia and we discussed medications for depression and counselling and he refused both. He was given a prescription for Remeron 15 mg tabs and instructed to take 7.5 mg for 2 weeks and then to increase to 15 mg Q HS if no adverse side effects. He can not afford Brilinta and he was given a prescription for Plavix and instructed he will need to take 2 antiplatelet agents for at least 1 year. General: Alert, Oriented x3, Cooperative - but is gruff and seems irritated, he became tearful when we were discussing the signs of depression and talking about his emotional well being HEENT: Atraumatic Oral: Moist Mucosa Neck: Supple, No JVD, Negative Carotid Bruits, No Nodes, Trachea Midline Lungs: Clear to auscultation - Anterior and lateral, No rhonchi, No wheeze, No rales Cardiovascular: Regular rate, Regular Rhythm, Normal S1, Normal S2, No murmurs, No rub noted, No Gallop Abdomen: Bowel Sounds Present, Soft, Non Tender, Non-Distended, - - No guarding with palpation Extremities: No clubbing, No cyanosis, No edema, - - Good thrill in the LUE AV fistula, cath site in the right wrist has no bleeding and no swelling and no bruit Skin: No rashes Neurological: Cranial nerves II-XII grossly intact, Neuro grossly intact Psych/Mental Status: - - irritable This note was generated with [employer] software. It may contain incorrect words, spelling, and punctuation that were not noted in checking the note before signing. - Physical Exam Vital Signs Temp Pulse Resp BP Pulse Ox 98.5 F 72 16 146/93 H 98 12/02/18 08:00 12/02/18 08:00 12/02/18 08:00 12/02/18 08:00 12/02/18 08:00 Oxygen Delivery Method Room Air Weight: 166 lb 0.129 oz Body Mass Index (BMI) 25.9 Finger Stick Blood Glucose 123 Intake and Output for Last 24 Hours 11/30/18 12/01/18 12/02/18 23:59 23:59 23:59 Intake Total 1120 / 1120 120 / 120 Output Total 1325 / 1325 300 / 300 Balance -205 / -205 -180 / -180 Laboratory Tests Past 24 Hrs 12/02/18 12/02/18 03:30 03:30 WBC 8.6 RBC 3.20 L Hgb 10.7 L Hct 32.8 L MCV 102.5 H MCH 33.4 H MCHC 32.6 RDW Std Deviation 53.8 H RDW Coeff of Kirsten 14.2 Plt Count 232 MPV 10.3 Sodium 138 Potassium 4.1 Chloride 100 Carbon Dioxide 29.0 Anion Gap 9 BUN 18 Creatinine 3.84 H Estim Creat Clear Calc 15.54 Est GFR (MDRD) Af Amer 20 L Est GFR (MDRD) Non-Af 16 L BUN/Creatinine Ratio 4.7 L Glucose 135 H Calcium 7.9 L Total Bilirubin 0.90 AST 46 H ALT 14 L Alkaline Phosphatase 98 Total Protein 6.8 Albumin 2.8 L Globulin 4.0 Albumin/Globulin Ratio 0.7 L POC Glucose 12/01/18 12/01/18 18:15 10:20 POC Glucose 142 H 138 H Discharge Activity: - - work up to walking 30 minutes a day- no hills until they clear you to do hills in cardiac rehab. No lifting >5-10 lbs Call your doctor if your incision/area has: Continuous Slow Oozing, Sudden Increased Bleeding, Increased Pain/ Swelling, Increased Redness, Foul Smelling Discharge, Swelling at the incision site Call your doctor if you observe: Fever of 101 or Higher, Shortness of breath, Dizziness, Fainting spells, Swelling in the ankles, Chest pain Remove Dressing in (days):: 1 Cleanse incision/area with: Soap & Water Home Medications: Medications to take at Discharge aspirin 81 mg tablet,delayed release 81 mg PO DAILY 09/30/18 linagliptin 5 mg tablet 5 mg PO QHS 09/30/18 pravastatin 80 mg tablet 80 mg PO DAILY #30 tab 09/30/18 carvedilol 6.25 mg tablet 6.25 mg PO BID #60 tab 11/12/18 Furosemide [Lasix] 80 mg PO BID 11/30/18 Sacubitril/Valsartan 24/26 mg [Entresto 24 mg-26 mg Tablet] 1 tab PO DAILY 11/30/18 Clopidogrel Bisulfate [Plavix] 75 mg PO DAILY #30 tab 12/02/18 Mirtazapine [Remeron] 7.5 mg PO QHS #30 tab 12/02/18 Following Prescrptions Were Given to Patient: Clopidogrel Bisulfate [Plavix] 75 mg PO DAILY #30 tab Prescription Printed Mirtazapine [Remeron] 7.5 mg PO QHS #30 tab Prescription Printed Primary Care Physician: Sean Medina MD [Primary Care Provider] - Please follow up with your Primary Care Physician in: 5-7 days Please Follow Up With: Trevor Bernal MD When: 2-4 weeks Patient Instructions: What Can Cause Depression?, Counseling for Depression, Depression: Tips to Help Yourself, Know the Signs and Symptoms of Depression Disposition: Home Minutes spent on discharge:: 40 Medical Necessity - Tobacco Use Smoking Status: Never smoker Tobacco Use: Non-smoker Meaningful Use Info Meaningful Use Diagnoses (Choose all that apply): AMI - AMI Aspirin given w/in 24hrs of arrival?: Yes ASA at discharge?: Yes Statins at discharge?: Yes Alfa/ARB at discharge?: Yes Beta Lavinia at discharge?: Yes Done w/ Acute MT measure.: Yes Documented LVEF (%): 50 Code Visit Inpatient E&M: 72861 Disch Hosp
--- NOTE | 2018-12-02 10:00 | EKG12_ITS ---
Test Reason : AM Blood Pressure : / mmHG Vent. Rate : 075 BPM Atrial Rate : 075 BPM P-R Int : 300 ms QRS Dur : 142 ms QT Int : 462 ms P-R-T Axes : 071 063 261 degrees QTc Int : 515 ms Sinus rhythm with 1st degree A-V block Right bundle branch block T wave abnormality, consider inferolateral ischemia Abnormal ECG When compared with ECG of 01-DEC-2018 09:23, MANUAL COMPARISON REQUIRED, DATA IS UNCONFIRMED Confirmed by ARABELLA EDEN, NICKI ([id number]), acquisitions editor LAITH OSULLIVAN ([id number]) on 12/06/2018 4:00:29 PM Referred By: Lilibeth Cole Confirmed By:AHMET BELL MD
== END 2018-12-02 10:00 | disposition home or self-care (01) ==
LOC: ED 16:47 → PCU 19:53 → ICU 12-01 09:10
PROVIDERS: Specialist; Admitting Provider Family Medicine; Emergency Provider Emergency Medicine; Family Provider Family Medicine; PCP Family Medicine; Referring Provider Family Medicine; Visit Provider Internal Medicine
DX: I97.190 Other postprocedural cardiac functional disturbances following cardiac surgery (principal); I21.A9 Other myocardial infarction type; I25.2 Old myocardial infarction; T82.897A Other specified complication of cardiac prosthetic devices, implants and grafts, initial encounter; Y83.8 Other surgical procedures as the cause of abnormal reaction of the patient, or of later complication, without mention of misadventure at the time of the procedure; Y71.3 Surgical instruments, materials and cardiovascular devices (including sutures) associated with adverse incidents; E11.22 Type 2 diabetes mellitus with diabetic chronic kidney disease; I12.0 Hypertensive chronic kidney disease with stage 5 chronic kidney disease or end stage renal disease; N18.6 End stage renal disease; I25.10 Atherosclerotic heart disease of native coronary artery without angina pectoris; I27.29 Other secondary pulmonary hypertension; I48.0 Paroxysmal atrial fibrillation; E78.5 Hyperlipidemia, unspecified; I25.5 Ischemic cardiomyopathy; D63.1 Anemia in chronic kidney disease; Z99.2 Dependence on renal dialysis; Z79.899 Other long term (current) drug therapy; Z79.82 Long term (current) use of aspirin; Z91.19 Patient's noncompliance with other medical treatment and regimen
CPT/HCPCS: 36415; 71045; 80048; 80053; 82962; 83735; 84484; 85025; 85027; 90937; 92920; 93005; 93458; 96372; 96374; 96376; 97802; 99152; 99153; 99218; 99285; J7030; J7040; Q9967; A4216; C1725; C1769; C1887; C1894; G0257; G0378; J1327

== ENCOUNTER → 2019-02-28 14:19 | Outpatient (CLI) | payer MEDICARE, SELFPAY ==
[2018-10-29 08:21] VITALS: BMI 26.2
[2018-11-30 20:27] VITALS: BMI 25.9
[2019-02-28 17:51] LABS: Absolute Lymphocyte Count 0.74 X10^3/uL (0.83-4.51); Absolute Neutrophil Count 5.7 X10^3/uL (2.0-7.7); Basophil# 0.03 X10^3/uL; Basophil% 0.4 % (0-1); Eosinophils% 1.4 % (0-5); Hematocrit 34.5 % (40-54); Hemoglobin 11.4 g/dL (13.0-16.5); Lymphocyte # 0.74 X10^3/ul (4.0); Lymphocyte % 10.3 % (19-41); Mean Corpuscular Hgb 34.1 pg (27.0-32.0); Mean Corpuscular Volume 103.3 fL (80-94); Mean Platelet Vol. 10.1 fl (6.2-12.0); Monocyte# 0.63 X10^3/uL; Monocyte% 8.8 % (0-10); NRBC Flagged by Analyzer 0 % (0-5); Neutrophil # 5.66 X10^3/uL (2.7-7.7); Neutrophil % 78.5 % (47-70); Platelet Count 311 K/mm3 (150-450); RBC Distribution Width CV 15.3 % (11.6-14.6); RBC Distribution Width SD 57.6 fl (35.1-43.9); Red Blood Count 3.34 M/mm3 (4.6-6.2); White Blood Count 7.2 K/mm3 (4.4-11.0)
[2019-02-28 18:50] LABS: Hemoglobin A1c 6.8 % (4.2-6.3)
[2019-02-28 20:07] LABS: ALB/GLOB Ratio 0.7 RATIO (0.9-2.4); AST(SGOT) 15 U/L (15-37); Alanine Aminotransfer ALT/SGPT 16 U/L (16-61); Albumin, Serum 3.2 g/dL (3.2-5.0); Alkaline Phosphatase 110 U/L (45-117); Anion Gap 7 (5-15); BUN 14 mg/dL (7-18); BUN/Creat Ratio 3.5 RATIO (10-20); Calcium,Total 8.5 mg/dL (8.5-10.1); Chloride 96 mmol/L (98-107); Cholesterol 248 mg/dL (200); Creatinine, Serum 4.04 mg/dL (0.70-1.30); EST Glomerular Filtration Rate 15 mL/min (>60); Est Glom Filt Rate - Afr Amer 19 mL/min (>60); Globulin 4.6 g/dL (2.2-4.2); Glucose 309 mg/dL (74-106); High Density Lipoprotein 29 mg/dL; Potassium 3.7 mmol/L (3.5-5.1); Protein, Total 7.8 g/dL (6.4-8.2); Sodium Level 136 mmol/L (136-145); T4 Free Direct 0.97 ng/dL (0.76-1.46); Thyroid Stim Hormone (TSH) 1.56 uIU/mL (0.358-3.74); Triglycerides 509 mg/dL
== END ==
PROVIDERS: Family Provider Family Medicine; PCP Family Medicine; Referring Provider Family Medicine; Visit Provider Family Medicine
DX: I50.22 Chronic systolic (congestive) heart failure (principal); E06.3 Autoimmune thyroiditis; E11.9 Type 2 diabetes mellitus without complications; E78.5 Hyperlipidemia, unspecified; E55.9 Vitamin D deficiency, unspecified
CPT/HCPCS: 36415; 80053; 80061; 82306; 82652; 83036; 84439; 84443; 85025

== ENCOUNTER 2019-05-16 14:54 | Inpatient (IN) | payer MEDICARE, MEDICAID, SELFPAY ==
[2018-10-29 08:21] VITALS: BMI 26.2
[2018-11-30 20:27] VITALS: BMI 25.9
[2019-05-16] VITALS (17 sets, daily range): BP systolic 97–158; BP diastolic 69–115; PULSE 106–126; RESP 14–25; TEMP 36.2–36.4; O2SAT 90–100; BMI 28.2; BMI 26.9
--- NOTE | 2019-05-16 15:26 | EKG12_ITS ---
Test Reason : PCI Blood Pressure : / mmHG Vent. Rate : 120 BPM Atrial Rate : 113 BPM P-R Int : 000 ms QRS Dur : 150 ms QT Int : 374 ms P-R-T Axes : 000 114 -61 degrees QTc Int : 528 ms Wide QRS rhythm Right bundle branch block T wave abnormality, consider inferior ischemia Abnormal ECG No previous ECGs available Confirmed by LEILANI LUNA ([id number]), health editor LAITH OSULLIVAN ([id number]) on 05/19/2019 10:26:09 AM Referred By: Leilani Luna Confirmed By:LEILANI LUNA
--- NOTE | 2019-05-16 15:30 | RAD_ITS ---
EXAM DESCRIPTION: PORTABLE AP CHEST CLINICAL HISTORY: 73 years Male, patient complains of chest pain patient complains of chest pain COMPARISON: Previous portable chest obtained on 11/30/2018 FINDINGS: The thorax is intact. The heart and mediastinum appear to be within normal limits. A moderate size right lung base pleural effusion is identified which has increased when compared with the previous study. The left lung is normal. RAD/Chest 1 View (Portable) IMPRESSION: Moderate size right lung base pleural effusion which has increased. Electronically Signed: Sean Campos, at 15:53 EST Tel , Service support ,
[2019-05-16 15:44] LABS: Absolute Lymphocyte Count 0.96 X10^3/uL (0.83-4.51); Basophil# 0.03 X10^3/uL; Basophil% 0.3 % (0-1); Eosinophil# 0.13 X10^3/uL; Eosinophils% 1.2 % (0-5); Hematocrit 32.2 % (40-54); Hemoglobin 10.6 g/dL (13.0-16.5); Lymphocyte # 0.96 X10^3/ul (4.0); Lymphocyte % 8.7 % (19-41); Mean Corp Hgb Conc 32.9 g/dL (32-36); Mean Corpuscular Hgb 33.8 pg (27.0-32.0); Mean Corpuscular Volume 102.5 fL (80-94); Mean Platelet Vol. 10.9 fl (6.2-12.0); Monocyte# 0.78 X10^3/uL; Monocyte% 7.1 % (0-10); NRBC Flagged by Analyzer 0 % (0-5); Neutrophil # 9.04 X10^3/uL (2.7-7.7); Neutrophil % 82.2 % (47-70); Platelet Count 255 K/mm3 (150-450); RBC Distribution Width CV 13.7 % (11.6-14.6); RBC Distribution Width SD 51.2 fl (35.1-43.9); Red Blood Count 3.14 M/mm3 (4.6-6.2)
--- NOTE | 2019-05-16 15:49 | ED.DCSUM_ITS ---
- ER Visit Summary Date of Service: 05/16/19 Chief Complaint: Left-sided chest pain History of Present Illness: The patient is a 73 M 3 of CAD, MIs x4 with 11 cardiac stents. He is diet-controlled diabetic. He also has end-stage renal disease and dialysis he was dialyzed today. He states around 1 PM today started having left-sided chest pain. Associated nausea vomiting. Diaphoresis. No shortness of breath. Does radiate to his left arm. States it feels like his prior ME. Physical Examination: Male vital signs stable. He is afebrile. Pulse ox 90%. He is complaining of pain. H EENT exam unremarkable. Neck nontender. Lungs clear to auscultation. Heart regular rhythm rate about 110 no murmur. Chest wall nontender. Abdomen soft nontender. Extremities moves all 4. Calves are nontender without edema or cords. His left forearm has a dialysis shunt with good thrill. Neurologically is awake alert with no focal motor deficits. Test Results: EKG shows a sinus tachycardia rate of 118 with possible inferior ME with significant depression in leads V1, V2, V3, V4 V5 consistent with a posterior ME. This is changed from the prior EKG from November of last year. Chest x-ray one view shows normal cardiac silhouette right lower lobe pleural e ffusion. Emergency Department Course and Treatment: Discussed with ST elevation affirmative action specialist on-call Dr. Jaylen Luna. Patient be treated as a inferior posterior ME. Treated with Brilinta, heparin bolus Nitropaste morphine and Zofran. Taken to the [facility]. Treatment Plan: To the cardiac catheterization lab. Disposition: Admission Impression: Acute inferior and posterior ME History of MIs, CAD and stents History of diabetes This note was generated with [email or web address] dictation software. It may contain incorrect words, spelling, and punctuation that were not noted in review of the chart prior to signing ED Disposition - Plan for ED Patient: Referrals: Sean Medina MD [Primary Care Provider] -
[2019-05-16] MEDS: Nitroglycerin Oint 1 INCH PACKET TRANSDERM. ×2 (15:55→23:39)
[2019-05-16] MEDS: Ondansetron 4 MG/2 ML Vial IV (15:55)
[2019-05-16] MEDS: Morphine 4 MG/ML Syringe IV (15:55)
[2019-05-16] MEDS: TICAGRELOR 90 MG TABLET 180 MG PO (16:00)
[2019-05-16] MEDS: Heparin Injection (Vial) 5,000 UNIT/ML VIAL 4000 UNIT IV (16:00)
--- NOTE | 2019-05-16 16:01 | HP.PCM_ITS ---
Problem List (1) STEMI (ST elevation myocardial infarction) Status: Acute Qualifiers: Involved coronary artery: unspecified coronary artery Qualified Code(s): I21.3 - ST elevation (STEMI) myocardial infarction of unspecified site (2) Depression Status: Chronic Qualifiers: Depression Type: unspecified Qualified Code(s): F32.9 - Major depressive disorder, single episode, unspecified (3) Essential hypertension Status: Chronic (4) ESRD (end stage renal disease) on dialysis Status: Chronic (5) Ischemic cardiomyopathy Status: Chronic (6) Paroxysmal atrial fibrillation Status: Chronic (7) Atherosclerotic heart disease of [place] coronary artery without angina pectoris Status: Chronic Qualifiers: [place] vs. 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 Diabetes mellitus complication status: with circulatory complication Diabetes mellitus complication detail: with other circulatory complications Qualified Code(s): E11.59 - Type 2 diabetes mellitus with other circulatory complications (9) Hyperlipidemia associated with type 2 diabetes mellitus Status: Chronic (10) HLD (hyperlipidemia) Status: Chronic Qualifiers: Hyperlipidemia type: unspecified Qualified Code(s): E78.5 - Hyperlipidemia, unspecified History of Present Illness Date of Admission: 05/16/19 Chief Complaint: Chest pain, STEMI The patient is a 73 y/o M w/ PMHx: AOCD, ESRD on HD MWF following w/ Dr. Scott, CAD s/p PCI x 11, HTN, HLD, Ischemic Cardiomyopathy, PAF, Diabetes mellitus type II, Anxiety and Depression, recent 11/2018 NSTEMI w/ a catheterization at that time demonstrating a fairly normal left main coronary, previously placed stents patent with distal 70% long stenosis in the left anterior descending artery, left circumflex artery with previously placed stents patent with the first obtuse marginal branch with moderate disease, RCA with codominant recently placed stents totally occluded in the midsegment, LVEF at that time 50% with mild inferior hypokinesis with at that time PTCA of the stent thrombosis/restenosis of the mid RCA who now re-presents to the [facility] ED on 05/16/19 with history of onset of left-sided constant chest aching equivocated per patient is a severe tooth ache with radiation to the left shoulder and left upper extremity with associated diaphoresis and nausea as well as emesis but no significant dyspnea starting at approximately 1 PM and ongoing, not improving with eventual ED presentation with EKG with posterior lateral ST elevations with immediate STEMI call. Patient had dialysis on day of ED presentation. Work-up in the ED included T 97.5, heart rate 106, BP 149/115, respiratory rate 21, 97% on room air, CBC with WC 11, hemoglobin 10.6, platelet 255 with left shift, BMP with sodium 134, chloride 93, carbon oxide 34, BUN/creatinine 12/3.80, glucose 05/23/1991, troponin 0.065, chest x-ray with moderate size right lung base pleural effusion increased from prior, EKG with sinus tachycardia with concern for inferior lateral MN with depressions in lead V1 through V5. In the ED STEMI called and patient initiated with Brilinta load, Nitro-Bid placed, morphine administered, heparin 4000 units IV x1 addition to aspirin 324 mg p.o. x1. Past Medical History Past Medical History (Chronic Problems): Chronic Problems (Last Updated 12/02/18 @ 08:[address] Marcy Anthony, ) Non compliance w medication regimen (Chronic) Depression (Chronic) Presence of stent in coronary artery (Chronic ~12/01/18) thrombectomy with PTCA with HASMUKH to proximal, mid and distal RCA 03/03; PTCA with stenting to mid & distal RCA 07/05, PTCA of proximal LAD 07/05; Successful PTCA/HASMUKH of the of proxima RCA in stent restenosis, utilizing a 2.0 x 12 Angiosculpt, followed by a 3.0 x 33 Elunira HASMUKH; 85%-->0%, no dissection.Successful PTCA/HASMUKH of the mid LPL branch of the LCX with a 3.0 x 16 Promus Synergy; 75%-->0%, no dissection; Successful PTCA/HASMUKH of the mid LCX with a 2.75 x 16 Promus Synergy; 75%-->0%, no dissection. No PCI of smal OM branch perfomed due to small vessel disease. 05/20/18; Successful PTCA/HASMUKH proximal LCX with a 3.0 x 16 Promus Synergy, 85%-->0%, no dissection. Successful PTCA/HASMUKH mid RCA ISR with a 2.5 x 10 Angiosculpt, followed with a 3.0 x 38 Promus Synergy, post dilated with a 3.0 and 3.5 x 12 NC balloon; 85 %-->0%, no dissection. 10/28/18; Successful PTCA of stent thrombosis/restenosis in mid RCA. 12/01/18 Essential hypertension (Chronic) ESRD (end stage renal disease) on dialysis (Chronic) Old myocardial infarction (Chronic) Inferior MN, anterior MN 07/05 correction use of drug (Chronic) Antihyperlipidemic Family history of hypertension (Chronic) Other secondary pulmonary hypertension (Chronic) Subendocardial ischemia (Chronic) Ischemic cardiomyopathy (Chronic) Nonrheumatic mitral valve regurgitation (Chronic) Rheumatic tricuspid insufficiency (Chronic) Paroxysmal atrial fibrillation (Chronic) Atherosclerotic heart disease of [place] coronary artery without angina pectoris (Chronic) PTCA/HASMUKH to proximal RCA, mid LPL branch of the LCx, in mid LCx in April 2017; angioplasty and PCI to mid and distal RCA in 2014; thrombectomy and PCI to proximal, mid, and distal RCA in 2011; Type II diabetes mellitus (Chronic) Hyperlipidemia associated with type 2 diabetes mellitus (Chronic) HLD (hyperlipidemia) (Chronic) Medical History: Medical History (Last Updated 12/02/18 @ 08:[address] Marcy Anthony, DO) Presence of stent in coronary artery (Chronic) Onset Date: ~12/01/18 Z95.5 thrombectomy with PTCA with HASMUKH to proximal, mid and distal RCA 03/03; PTCA with stenting to mid & distal RCA 07/05, PTCA of proximal LAD 07/05; Successful PTCA/HASMUKH of the of proxima RCA in stent restenosis, utilizing a 2.0 x 12 Angiosculpt, followed by a 3.0 x 33 Elunira HASMUKH; 85%-->0%, no dissection.Successful PTCA/HASMUKH of the mid LPL branch of the LCX with a 3.0 x 16 Promus Synergy; 75%-->0%, no dissection; Successful PTCA/HASMUKH of the mid LCX with a 2.75 x 16 Promus Synergy; 75%-->0%, no dissection. No PCI of smal OM branch perfomed due to small vessel disease. 05/20/18; Successful PTCA/[facility] proximal LCX with a 3.0 x 16 Promus Synergy, 85%-->0%, no dissection. Successful PTCA/HASMUKH mid RCA ISR with a 2.5 x 10 Angiosculpt, followed with a 3.0 x 38 Promus Synergy, post dilated with a 3.0 and 3.5 x 12 NC balloon; 85%-->0%, no dissection. 10/28/18; Successful PTCA of stent thrombosis/restenosis in mid RCA. 12/01/18 Essential hypertension (Chronic) I10 Old myocardial infarction (Chronic) I25.2 Inferior MN, anterior MN 07/05 correction use of drug (Chronic) Z79.899 Antihyperlipidemic Family history of hypertension (Chronic) Z82.49 Other secondary pulmonary hypertension (Chronic) I27.29 Subendocardial ischemia (Chronic) I24.8 Ischemic cardiomyopathy (Chronic) I25.5 Nonrheumatic mitral valve regurgitation (Chronic) I34.0 Rheumatic tricuspid insufficiency (Chronic) I07.1 Paroxysmal atrial fibrillation (Chronic) I48.0 Atherosclerotic heart disease of [place] coronary artery without angina pectoris (Chronic) I25.10 PTCA/HASMUKH to proximal RCA, mid LPL branch of the LCx, in mid LCx in April 2017; angioplasty and PCI to mid and distal RCA in 2014; thrombectomy and PCI to proximal, mid, and distal RCA in 2011; Type II diabetes mellitus (Chronic) E11.9 Hyperlipidemia associated with type 2 diabetes mellitus (Chronic) E11.69, E78.5 Non-STEMI (non-ST elevated myocardial infarction) (Acute) I21.4 Unstable angina (Acute) HLD (hyperlipidemia) (Chronic) E78.5 Acute on chronic renal insufficiency (Resolved) N28.9, N18.9 Hyperkalemia (Resolved) E87.5 Left flank pain (Resolved) R10.9 Uncontrollable nausea and vomiting (Resolved) R11.2 Coronary artery disease (Inactive) I25.10 Pneumonia (Inactive) J18.9 Allergies codeine Allergy (Verified 05/16/19 15:05) Itching Home Medications: Ambulatory Orders Medication Instructions Recorded aspirin 81 mg tablet,delayed 81 mg PO DAILY 09/30/18 release linagliptin 5 mg tablet 5 mg PO QHS 09/30/18 pravastatin 80 mg tablet 80 mg PO DAILY #30 tab 09/30/18 carvedilol 6.25 mg tablet 6.25 mg PO BID #60 tab 11/12/18 Furosemide [Lasix] 80 mg PO BID 11/30/18 Sacubitril/Valsartan 24/26 mg 1 tab PO DAILY 11/30/18 [Entresto 24 mg-26 mg Tablet] Clopidogrel Bisulfate [Plavix] 75 mg PO DAILY #30 tab 12/02/18 Mirtazapine [Remeron] 7.5 mg PO QHS #30 tab 12/02/18 Surgical History: Surgical History (Last Updated 12/01/18 @ 17:23 by Mirella Singletary) Presence of surgically created arteriovenous shunt for hemodialysis Onset Date: ~05/2017 Z99.2 fistulogram 09/07 Presence of coronary angioplasty implant and graft Onset Date: ~12/01/18 Z95.5 thrombectomy with PTCA with HASMUKH to proximal, mid and distal RCA 03/03; PTCA with stenting to mid & distal RCA 07/05, PTCA of proximal LAD 07/05; Successful PTCA/HASMUKH of the of proxima RCA in stent restenosis, utilizing a 2.0 x 12 Angiosculpt, followed by a 3.0 x 33 Elunira HASMUKH; 85%-->0%, no dissection.Successful PTCA/HASMUKH of the mid LPL branch of the LCX with a 3.0 x 16 Promus Synergy; 75%-->0%, no dissection; Successful PTCA/HASMUKH of the mid LCX with a 2.75 x 16 Promus Synergy; 75%-->0%, no dissection. No PCI of smal OM branch perfomed due to small vessel disease. 05/20/18; Successful PTCA/HASMUKH proximal LCX with a 3.0 x 16 Promus Synergy, 85%-->0%, no dissection. Successful PTCA/HASMUKH mid RCA ISR with a 2.5 x 10 Angiosculpt, followed with a 3.0 x 38 Promus Synergy, post dilated with a 3.0 and 3.5 x 12 NC balloon; 85%-->0%, no dissection. 10/28/18; Successful PTCA of stent thrombosis/restenosis in mid RCA. 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 Psychiatric History: Anxiety Lives: Alone Smoking Status: Never smoker Tobacco Use: Non-smoker Alcohol: None Drugs: None - *Family History Maternal Family History: Family History (Last Reviewed 09/30/18 @ 13:10 by Mirella Singletary) Mother Breast cancer Myocardial infarction CAD (coronary artery disease) Father Colon cancer Hypertension Myocardial infarction Other Family history of hypertension History Items: Cancer, Heart Disease, Hypertension Paternal Family History: Family History (Last Reviewed 09/30/18 @ 13:10 by Mirella Singletary) Mother Breast cancer Myocardial infarction CAD (coronary artery disease) Father Colon cancer Hypertension Myocardial infarction Other Family history of hypertension History Items: Cancer, Heart Disease, Hypertension Review of Systems Constitutional: Reports: Malaise, Weakness, Fatigue. Denies: Anorexia, Chills, Fever, Weight Change HEENT: Denies: Head Aches, Sinus Congestion, Sinus Drainage Cardiovascular: Reports: Chest Pain. Denies: Chest Pressure, Chest Tightness, Heaviness, Light Headedness, Orthopnea, Palpitations, Syncope Respiratory: Denies: Cough, Shortness of Breath, Shortness of breath at rest, Shortness of breath upon exertion, Sputum production Gastrointestinal: Reports: Nausea, Vomiting. Denies: Abdominal Pain Genitourinary: Denies: Dysuria Musculoskeletal: Reports: Arm Pain. Denies: Joint Pain, Joint Tenderness Skin: Denies: Rash, Wounds Neurological: Denies: Numbness, Tingling, Focal weakness Psychiatric: Denies: Anxiety, Depression, Homicidal Ideations, Suicidal Ideations Hematologic/ Lymphatic: Reports: Anemia, Easy Bruising, Easy Bleeding VTE Information - Inpt Only VTE Present on Admission: No VTE Mechan Device Prophylaxis: SCD's VTE Pharm Prophylaxis ordered?: Yes Patient Problems: Active and Suspected Problems (Last Updated 12/02/18 @ 08:[address] Marcy Anthony DO) STEMI (ST elevation myocardial infarction) (Acute) Subjective: Seated upright in the bed, status post tummy call, notes ongoing 12 out of 10 chest discomfort, left-sided. Objective: Physical Examination: General: awake, alert, oriented x 3 and cooperative, seated upright in the ED bed, uncomfortable appearing, ongoing 12 out of 10 left-sided upper chest pain with radiation to the left upper extremity, STEMI called, being transition to cardiac catheterization lab. Skin: normal color, turgor, no icterus, cyanosis. HEENT: AT/NC, EOMI, PERRLA, mildly dry MM, no carotid bruits or JVD noted. Lungs: CTA bilaterally, moderate effort, moderate decrease BL bases, no rales, ronchi or wheezing. Heart: Regular rate and rhythm; no gallop, rub audible. Abdomen: soft, overweight, NTTP, ND, normal BS, no HSM. Extremities: no cyanosis, clubbing, or edema, left upper extremity with positive thrill AVF. Neurological: patient awake, alert, oriented x 3; cognitive function intact; pupils equally reactive to light and accomodation; cranial nerves II-XII grossly normal, moving all 4 extremities, no focal deficits, strength severely global decrease secondary to acute presentation. Psychiatric: affect appears uncomfortable, fatigued, no acute evidence of depressive or anxiety feelings. - Physical Exam Vitals/I&O's: Vital Signs Temp Pulse Resp BP Pulse Ox 97.5 F L 118 H 21 H 158/100 H 98 05/16/19 14:57 05/16/19 15:55 05/16/19 14:57 05/16/19 15:55 05/16/19 15:28 Oxygen Delivery Method Room Air Weight: 180 lb 1.883 oz Body Mass Index (BMI) 28.2 Finger Stick Blood Glucose 123 Laboratory Results 05/16/19 15:00: WBC 11.0, RBC 3.14 L, Hgb 10.6 L, Hct 32.2 L, MCV 102.5 H, MCH 33.8 H, MCHC 32.9, RDW Std Deviation 51.2 H, RDW Coeff of Kirsten 13.7, Plt Count 255, MPV 10.9, Immature Gran % (Auto) 0.500, Neut % (Auto) 82.2 H, Lymph % (Auto) 8.7 L, [place] % (Auto) 7.1, Eos % (Auto) 1.2, Baso % (Auto) 0.3, Absolute Neuts (auto) 9.0 H, Absolute Lymphs (auto) 0.96, Nucleated RBC % 0 05/16/19 15:00: Sodium Pending, Potassium Pending, Chloride Pending, Carbon Dioxide Pending, Anion Gap Pending, BUN Pending, Creatinine Pending, Est GFR (MDRD) Af Amer Pending, Est GFR (MDRD) Non-Af Pending, BUN/Creatinine Ratio Pending, Glucose Pending, Calcium Pending, Troponin I Pending Assessment/Plan All Active Problems (Last Updated 12/02/18 @ 08:[address] Marcy Anthony, DO) STEMI (ST elevation myocardial infarction) (Acute) Post PTCA (Acute ~12/01/18) Non-STEMI (non-ST elevated myocardial infarction) (Acute) Unstable angina (Acute) Acute on chronic renal insufficiency (Resolved) Hyperkalemia (Resolved) Left flank pain (Resolved) Problem with dialysis access (Resolved) Uncontrollable nausea and vomiting (Resolved) The patient is a 73 y/o M w/ PMHx: AOCD, ESRD on HD MWF following w/ Dr. Scott, CAD s/p PCI x 11, HTN, HLD, Ischemic Cardiomyopathy, PAF, Diabetes mellitus type II, Anxiety and Depression, recent 11/2018 NSTEMI w/ PTCA of the stent thrombosis/restenosis of the mid RCA who now re-presents to the [facility] ED on 05/16/19 with history of onset of left-sided constant chest aching equivocated per patient is a severe tooth ache with radiation to the left shoulder and left upper extremity with associated diaphoresis and nausea as well as emesis but no significant dyspnea starting at approximately 1 PM and ongoing, not improving. 1. Chest Pain w/ Acute Posteriolateral STEMI: EKG in ED w/ concerning findings for posterior lateral STEMI, CXR w/ enlarging right-sided pleural effusion, initial troponin 0.065. Will admit to the ICU following cardiac catheterization if appropriate, maintain on a monitored bed, continue serial cardiac enzymes and EKGs. Obtain magnesium level upon admission. Administered therapeutic heparin in the ED as well as Brilinta load. Continue medical management w/ asa, BB, statin, ACEI w/ AM FLP. Cardiology consulted, STEMI called, transitioning currently for cardiac catheterization. Currently on plavix, asa therapy from recent intervention 11/2018, will defer decision for plavix versus brillinta transition to Technical Service Rep. Request ECHO. Will need repeat HD following, Nephrology consulted as noted. ASA, NG, morphine. 2. CAD: s/p MN, PTCA/HASMUKH to proximal RCA, mid LPL branch of the LCx, and mid LCx in April 2017, angioplasty and PCI to mid and distal RCA in 2014, thromb ectomy and PCI to proximal, mid, and distal RCA in 2011, PTCA/HASMUKH to proximal LCx and PTCA/HASMUKH to mid RCA ISR on 10/28/2018 and repeat m RCA 12/01/18. Will continue home aspirin, Coreg, Entresto and statin regimen. Will defer plavix versus brillinta decision to cardiology. 3. Ischemic Cardiomyopathy: 10/28/18 ECHO w/ EF 45%, posterior basal severely hypokinetic, inferior basal severely hypokinetic, compared to April 2017 echocardiogram posterior and inferior hypokinesis worsened, anterior septal corcoran normalized. Will maintain on aspirin, statin, Coreg, Entresto, Lasix regimen, defer plavix versus brillinta decision to cardiology. 4. Chronic normocytic anemia/AOCD: Admission hemoglobin 10.6, baseline 9-, stable, trend. 5. Diabetes mellitus type II: Hold oral home regimen, recent hemoglobin A1c 8.1% 11/2018, BS upon presentation 292, following catheterization bed rest will initiate ADA diet, maintain on accu checks w/ ISS, obtain repeat HgbA1c, obtain nutrition consulted for education and teaching. 6. Hypertension: Continue home regimen including Coreg, Lasix, Entresto, PRN hydralazine. 7. Hyperlipidemia: Continue home statin regimen, FLP in AM. 8. PAF: Maintained on Coreg, not anticoagulated. 9. ESRD: HD Thursday, completed prior to ED presentation, will consult Dr. Scott given catheterization to arrange HD. 10. DVT prophylaxis: SCDs, heparin starting 05/17/19 AM. 11. CODE status: Patient JASON is his daughter Jojo Hernandez and living will is currently in place. Discussed CODE status at length including difference between FULL code, DNR-CCA and DNR-CC status. Following discussions about the differences in these status, requested very adamantly DNR-CCA, no intubation status but was open to intervention/evaluation with cardiac catheterization. Advanced Care Planning Face to Face Time: 16 minutes. Code Visit Inpatient E&M: 26083 Init Hosp L3 Procedures: 62126 Advncd Care Plan 30 Min
[2019-05-16 16:02] LABS: Anion Gap 7 (5-15); BUN 12 mg/dL (7-18); BUN/Creat Ratio 3.2 RATIO (10-20); Calcium,Total 8.8 mg/dL (8.5-10.1); Chloride 93 mmol/L (98-107); EST Glomerular Filtration Rate 17 mL/min (>60); Est Glom Filt Rate - Afr Amer 20 mL/min (>60); Glucose 292 mg/dL (74-106); Potassium 3.7 mmol/L (3.5-5.1); Sodium Level 134 mmol/L (136-145)
--- NOTE | 2019-05-16 17:37 | ECHOD_ITS ---
Reason For Study: CHEST PAIN Procedure This was a 2D Doppler, Color Flow transthoracic echocardiogram. Exam performed portable in ICU/CCU. Left Ventricle Mild concentric left ventricular hypertrophy. Moderately dilated left ventricle. The estimated ejection fraction is 25 %. Stage 1 diastolic dysfunction. Posterior-Basal: Akinetic. Infero-Basal: Akinetic. Lateral-Basal: Akinetic. Right Ventricle Normal size and thickness. Normal systolic function. Atria Normal left atrium. Normal right atrium. Normal atrial septum. Mitral Valve Mild diffuse mitral valve thickening. Mild-Moderate (1-2+) posteriorly directed mitral valve insufficiency. Tricuspid Valve Normal tricuspid valve. Mild (1+) tricuspid valve insufficiency. Right ventricular systolic pressure estimated to be 40 mmHg. Mild pulmonary hypertension. Aortic Valve Trisinus/trileaflet aortic valve. Mild diffuse aortic valve thickening. There is no aortic stenosis. Pulmonic Valve Normal pulmonic valve. Great Vessels Normal aortic root. Normal arch. Normal inferior vena cava. Inferior vena cava collapse with sniff. Pericardium/Pleural No pericardial effusion. MMode/2D Measurements & Calculations LVIDd: 4.9 cm IVSd: 1.3 cm Ao root diam: 3.5 cm LVIDs: 4.5 cm LVPWd: 1.3 cm RVDd: 3.6 cm FS: 8.4 % LAV(MOD-bp): 47.8 ml LA A4 area: 19.5 cm2 LA dimension(2D): 4.1 cm LAV(MOD-bp) Indexed: 25.3 ml/m2 LAV(MOD-sp2): 39.3 ml LAV(MOD-sp4): 56.2 ml RA A4 area: 17.5 cm2 Time Measurements MV dec time: 0.15 sec Doppler Measurements & Calculations MV E max thomas: 117.2 cm/sec Lat Peak E' Thomas: 6.8 cm/sec Med Peak E' Thomas: 3.9 cm/sec MV A max thomas: 100.9 cm/sec E/E' lat: 17.3 E/E' med: 30.3 MV E/A: 1.2 Ao V2 max: 145.0 cm/sec AI max thomas: 407.0 cm/sec LV V1 max: 85.9 cm/sec Ao max P.4 mmHg AI max P.3 mmHg LV V1 max P.0 mmHg AI dec slope: 274.3 cm/sec2 AI P1/2t: 434.6 msec TR max thomas: 294.9 cm/sec TR max P.1 mmHg Interpretation Summary Mild concentric left ventricular hypertrophy. Moderately dilated left ventricle. The estimated ejection fraction is 25 %. Stage 1 diastolic dysfunction. Mild-Moderate (1-2+) posteriorly directed mitral valve insufficiency. Mild (1+) tricuspid valve insufficiency. Right ventricular systolic pressure estimated to be 40 mmHg. Mild pulmonary hypertension. Compared to echo results dated 10/28/2018 LV function has deteriorated from 45% to 25%, unable to calculate RVSP at that time. Ordering Physician: Lilibeth Cole Referring Physician: JOSE ALFREDO MTATHEWS Performed By: Natalie Bond, NICHOLAS, RVT
--- NOTE | 2019-05-16 17:37 | EKG12_ITS ---
Test Reason : A,M. EKG Blood Pressure : / mmHG Vent. Rate : 097 BPM Atrial Rate : 097 BPM P-R Int : 232 ms QRS Dur : 138 ms QT Int : 388 ms P-R-T Axes : 066 112 -24 degrees QTc Int : 492 ms Sinus rhythm with 1st degree A-V block Right bundle branch block T wave abnormality, consider inferolateral ischemia Abnormal ECG Confirmed by LEILANI LUNA ([id number]), material expeditor JOSELYN MONTGOMERY ([id number]) on 05/18/2019 3:11:41 PM Referred By: Leilani Luna Confirmed By:LEILANI LUNA
[2019-05-16 17:40] LABS: ACT Activated Clotting Time 268 sec (74-137)
[2019-05-16 17:40] LABS: ACT Activated Clotting Time 175 sec (74-137)
--- NOTE | 2019-05-16 17:43 | CL.I_ITS ---
Patient Name: CAITLIN CRUZ Study Date: 05/16/2019 Performing: Saroj Luna MD Ht: 67 inches 170.18 cm : 1945 Wt: 167.8 lbs 76 kg Age: 73 Gender: male BSA: 1.88 PROCEDURE(S) PERFORMED [id number], HASMUKH AND/OR PTCA, ARTERY OR GRAFT, SINGLE VESSEL [id number]/COR/LV JY82-DIP W OR WO PTCA, SINGLE CORONARY ARTERY CLINICAL PROFILE AND CO-MORBIDITIES Patient presents with STEMI for emergent cardiac cath. Indications: ACS <= 24 hrs, Stable Known CAD, LV Dysfunction Heart Failure: NYHA Class: 1, Newly Diagnosed: No, Heart Failure Type: Systolic Stress/Imaging Stress/Image Study Performed: No Angina Classification Anginal Classification w/in 2 Weeks: No symptoms CAD Presentations: STEMI. Symptom onset Date/Time: 05/16/2018 13:00:00 Time Estimated Comorbidities/Risk Factors: Current/Recent Smoker (< 1year) Hypertension Dyslipidemia Prior ID Prior CHF Prior PCI Currently On Dialysis Diabetes Mellitus: Diabetes Therapy: Oral CONCLUSIONS Global LV systolic dysfunction- Severe LVEF: by LV gram 20-25 % Depressed Left Ventricular systolic function - Severe Elevated Left Ventricular End Diastolic Pressure Double vessel CAD of the LCX and RCA Non obstructive coronary arteries Successful PTCA/HASMUKH emergent heparin/Integrilin bolus assisted PCI to mid LCX with a 2.5 x 16 Promus Synergy, post dilated with a 3.0 x 8 NC balloon using double wire technique; 100%-->0%, no dissection . Successful PTCA/HASMUKH to mid RCA with a 2.5 x 10 Angiosculpt, followed by a 2.5 x 14 Resolute, post dil ated with a 3.0 x 8 NC baloon; 90%-->0%, no dissection. Successful PTCA/HASMUKH PCI with 2.5 x 10 Angiosculpt to proximal RCA, followed with a 3.0 x 15 Resolute HASMUKH, post dilated throughout with a 3.0 x 8 NC Balloon; 75%-->0%, no dissection. RECOMMENDATIONS Referred for immediate PCI Highly recommend quitting all tobacco products Follow up with primary rubber goods repairer Risk factor modification ASA Indefinitley Plavix for at least 12 months Routine post interventional care Refer for Outpatient Cardiac Rehab Manual sheath removal per protocol Follow up with Dr. Dan Manual sheath removal once ACT<150; unable to use IABP due to extreme aorto-iliac tortuosity and acce ss in R profunda. asa/brilinta for life. 2D echo in am. d/w [place] Cole and Alvarez. It appears STEMI delay was due to ER attending to multiple critically ill people simultaneously. DESCRIPTION OF PROCEDURE The patient arrived to the procedure lab. The risks and benefits of the procedure as well as a full d escription of our services here and lack of surgical backup were fully explained to the patient and/o r their significant other prior to the catheterization. The Timeout was completed, verifying the kecia ect patient and procedure. The patient's procedural site was prepped and draped in the usual fashion. Local anesthetic was given subcutaneously to right groin region with Lidocaine 2%. Using a modified Seldinger technique, arterial access was obtained via the right femoral artery, a 6Fr 55 CM sheath wa s inserted.. Left Coronary Artery selective angiography was performed in multiple views using a 4 Fr . JL5 catheter. Right Coronary Artery selective angiography was then performed in multiple views usin g a 4 Fr. 3DRC catheter. Left Ventriculography was performed in BHANDARI projection using a 4 Fr. Pigtail catheter. LV to AO pullback pressures were then recordedThe images were reviewed and options discussed. A decision was then made to proceed with an Intervention, IVUS or other adjunct pr ocedure. ebu 3.75 Guide catheter was inserted and engaged into the LCA. Runthrough Guide wire was advanced to the Circumflex. 2.0 x 12 Emerge Balloon catheter was advanced across lesion in the circumflex, mi d. PTCA balloon inflated at 6 atms for 6 secs. Angiogram performed post balloon dilatation. BMW Guide wire was advanced to the 1st OM. 2.5 x 16 Synergy Drug Eluting stent was advanced across the lesion in the circumflex, mid. Angiogram performed pre stent deployment. 2.0 x 12 Emerge Balloon catheter wa cady advanced across lesion in the circumflex, distal. Angiogram performed pre balloon dilatation. HS 2 Guide catheter was inserted and engaged into the RCA. Runthrough Guide wire was advanced to the Right PDA. 2.0 x 12 Emerge Balloon catheter was advanced across lesion in the right coronary, mid. PTCA ba lloon inflated at 7 atms for 10 secs. PTCA balloon inflated at 8 atms for 13 secs. 2.5 x 10 Angioscul pt Balloon catheter was advanced across lesion in the right coronary, mid. 2.5 x 14 Resolute Drug Eluting stent was advanced across the lesion in the right coronary, mid. Angiogram perf ormed pre stent deployment. Angiogram performed post stent deployment. 3.0 x 8 NC Emerge Balloon cath eter was inserted post stent. Angiogram performed post balloon dilatation. 2.5 x 10 Angiosculpt Ballo on catheter was advanced across lesion in the right coronary, proximal. 3.0 x 15 Resolute Drug Elutin g stent was advanced across the lesion in the right coronary, proximal. 3.0 x 8 NC Emerge Balloon cat heter was inserted post stent. Angiogram performed post balloon dilatation. Arterial sheath was excha nged for a 7 Fr Sheath. Contrast was injected through the sheath and the Right Iliac and Femoral era ry were assessed for possible closure device. The arterial sheath was sutured in place and capped CORONARY ANGIOGRAPHY DOMINANCE: Co- Dominant LEFT HEART ASSESSMENT Left Ventricular Ejection Fraction: by LV Gram 20-25 % Depressed Left Ventricular systolic function LVEDP: 25 mmHg Elevated Left Ventricular End Diastolic Pressure Global Hypokinesis - Severe LEFT MAIN: Non-obstructive LEFT ANTERIOR DESCENDING ARTERY: PROX LAD: Previously placed stent is patent MID LAD: Mild luminal irregularities less than 30% CIRCUMFLEX ARTERY: MID CIRC: Previously placed stent is occluded RIGHT CORONARY ARTERY: PROX RCA: Instent restenosis 75 % MID RCA: Instent restenosis 90 % INTERVENTION INFORMATION LESION SITE: Circumflex (Mid) Lesion Complexity: High/C, lesion at bifurcation: Yes, lesion length: 16 mm, culprit lesion: Yes, thr ombus present: Yes Pre Stenosis: 100 % Pre intervention JAMILA flow: 0 PROCEDURE: Balloon Angioplasty, Drug Eluting Stent with pre and post dilatation Post Stenosis: 0 % Post intervention JAMILA flow: 3 Lesion Devices: Medtronic 6 Fr EBU3.75 100cm Guide Catheter Terumo .014 Runthrough Extra Floppy 180cm straight Torsten Sci EMERGE MR 2.00x12 BALLOON Live .014 BMW [place] Straight 190cm Torsten Sci Synergy MR HASMUKH 2.50x16 LESION SITE: RCA (Mid) Lesion Complexity: Non-High/Non-C, lesion at bifurcation: No, thrombus present: No, lesion length: 14 mm, culprit lesion: No Pre Stenosis: 90 % Pre intervention JAMILA flow: 2 PROCEDURE: Balloon Angioplasty Cutting Balloon Angioplasty Drug Eluting Stent with pre and post dilatation Post Stenosis: 0 % Post intervention JAMILA flow: 3 Lesion Devices: Terumo .014 Runthrough Extra Floppy 180cm straight Medtronic 6 Fr HSII 100cm Guide Catheter [employer] Angiosculpt RX 2.5x10 Scoring Balloon Medtronic Resolute RX HASMUKH 2.5x14 Torsten Sci NC EMERGE MR 3.00x08 BALLOON LESION SITE: RCA (Proximal) Lesion Complexity: Non-High/Non-C, lesion at bifurcation: No, thrombus present: No, lesion length: 15 mm, culprit lesion: No Pre Stenosis: 75 % Pre intervention JAMILA flow: 3 PROCEDURE: Cutting Balloon Angioplasty Drug Eluting Stent with pre and post dilatation 0 % Post intervention JAMILA flow: 3 Lesion Devices: Medtronic 6 Fr HSII 100cm Guide Catheter [employer] Angiosculpt RX 2.5x10 Scoring Balloon Torsten Sci NC EMERGE MR 3.00x08 BALLOON Medtronic Resolute RX HASMUKH 3.0x15 COMPLICATIONS No Complications PROCEDURE MEDICATIONS Fentanyl 25 mcg IV Oxygen: 2 L/min via nasal cannula Heparin 6000 unit(s) IV 05/16/2019 16:22:09 Nitro 200 mcg IC 05/16/2019 16:28:33 Nitro 200 mcg IC 05/16/2019 16:28:33 Nitro Paste 1 in LEFT CHEST WALL 05/16/2019 17:14:38 IV Bolus: .9 NaCl 450 ml total 05/16/2019 17:21:34 IV Fluids: .9 NaCl increased to 150 ml/hr 05/16/2019 16:40:49 SUMMARY OF HEMODYNAMIC DATA Time AIR REST ECG 16:09:32 AO 153/89 (114) SA 16:16:00 LV 153/0, 25 17:05:52 LV 155/-1, 25 17:05:58 LVp 155/0, 25 17:06:02 AOp 151/86 (110) 17:06:07 Signed By Saroj Luna MD On 05/16/2019 5:42:56 PM Saroj Luna MD
[2019-05-16 18:20] LABS: Magnesium 2.3 mg/dL (1.6-2.6)
[2019-05-16 18:44] LABS: Hemoglobin A1c 6.3 % (4.2-6.3)
[2019-05-16] MEDS: proCHLORPERazine 10 MG/2 ML Vial 5 MG IV (18:45)
[2019-05-16] MEDS: 0.9% Normal Saline 1,000 ML 150 ML IV (19:42)
[2019-05-16 20:00] LABS: ACT Activated Clotting Time 180 sec (74-137)
[2019-05-16] MEDS: Mirtazapine 15 MG Tablet 7.5 MG PO (21:06)
[2019-05-16] MEDS: SACUBITRIL/VALSARTAN 24/26 MG TABLET 1 EACH PO (21:07)
[2019-05-16] MEDS: Pravastatin 80 MG Tablet PO (21:07)
[2019-05-16] MEDS: TICAGRELOR 90 MG TABLET PO (21:08)
[2019-05-16] MEDS: Carvedilol 6.25 MG Tablet PO (21:08)
[2019-05-16] MEDS: LORazepam 1 MG Tablet PO (21:11)
[2019-05-16 21:21] LABS: Bedside Glucose 211 mg/dL (70-110)
[2019-05-16] MEDS: 0.9% Normal Saline 1,000 ML 75 ML IV (23:40)
[2019-05-17] VITALS (34 sets, daily range): BP systolic 89–138; BP diastolic 46–96; PULSE 81–110; RESP 12–27; TEMP 36.3–37.1; O2SAT 90–100
[2019-05-17] MEDS: Nitroglycerin Oint 1 INCH PACKET TRANSDERM. (05:16)
[2019-05-17 05:17] LABS: Absolute Lymphocyte Count 0.83 X10^3/uL (0.83-4.51); Absolute Neutrophil Count 9.4 X10^3/uL (2.0-7.7); Basophil# 0.01 X10^3/uL; Basophil% 0.1 % (0-1); Eosinophil# 0.05 X10^3/uL; Eosinophils% 0.4 % (0-5); Hematocrit 28.7 % (40-54); Hemoglobin 9.1 g/dL (13.0-16.5); Lymphocyte # 0.83 X10^3/ul (4.0); Lymphocyte % 7.4 % (19-41); Mean Corp Hgb Conc 31.7 g/dL (32-36); Mean Corpuscular Hgb 33.2 pg (27.0-32.0); Mean Corpuscular Volume 104.7 fL (80-94); Mean Platelet Vol. 10.4 fl (6.2-12.0); Monocyte# 0.89 X10^3/uL; Monocyte% 7.9 % (0-10); NRBC Flagged by Analyzer 0 % (0-5); Neutrophil # 9.41 X10^3/uL (2.7-7.7); Neutrophil % 83.8 % (47-70); Platelet Count 200 K/mm3 (150-450); RBC Distribution Width CV 14.2 % (11.6-14.6); RBC Distribution Width SD 54.4 fl (35.1-43.9); Red Blood Count 2.74 M/mm3 (4.6-6.2); White Blood Count 11.2 K/mm3 (4.4-11.0)
--- NOTE | 2019-05-17 05:55 | EKG12_ITS ---
Test Reason : AM EKG Blood Pressure : / mmHG Vent. Rate : 082 BPM Atrial Rate : 082 BPM P-R Int : 272 ms QRS Dur : 152 ms QT Int : 444 ms P-R-T Axes : 008 112 -69 degrees QTc Int : 518 ms Sinus rhythm with 1st degree A-V block Right bundle branch block T wave abnormality, consider inferolateral ischemia Abnormal ECG When compared with ECG of 17-MAY-2019 05:00, MANUAL COMPARISON REQUIRED, DATA IS UNCONFIRMED Confirmed by ARABELLA EDEN, NICKI ([id number]), film and video editor KISHORE QUINTERO ([id number]) on 05/23/2019 8:56:36 AM Referred By: Saroj Luna Confirmed By:AHMET BELL MD
[2019-05-17 06:02] LABS: ALB/GLOB Ratio 0.7 RATIO (0.9-2.4); AST(SGOT) 701 U/L (15-37); Alanine Aminotransfer ALT/SGPT 64 U/L (16-61); Albumin, Serum 2.9 g/dL (3.2-5.0); Alkaline Phosphatase 82 U/L (45-117); Anion Gap 6 (5-15); BUN 21 mg/dL (7-18); BUN/Creat Ratio 4.5 RATIO (10-20); Calcium,Total 7.8 mg/dL (8.5-10.1); Chloride 97 mmol/L (98-107); Cholesterol 158 mg/dL (200); Creatinine, Serum 4.64 mg/dL (0.70-1.30); EST Glomerular Filtration Rate 13 mL/min (>60); Est Glom Filt Rate - Afr Amer 16 mL/min (>60); Estimated Creatinine Clearance 12.86 ml/min; Globulin 4.1 g/dL (2.2-4.2); Glucose 147 mg/dL (74-106); High Density Lipoprotein 38 mg/dL; Potassium 6.2 mmol/L (3.5-5.1); Sodium Level 134 mmol/L (136-145); Triglycerides 131 mg/dL; Very Low Density Lipoprotein 26 mg/dL (5-40)
--- NOTE | 2019-05-17 06:34 | NURSING ---
Pt. has not felt like he needed to void. Pt. tried to use the urinal at this time and said that he didn't feel the urge any longer. Bladder scan showed 162ml. Will monitor.
--- NOTE | 2019-05-17 07:30 | PN_ITS ---
Patient Problems: Active and Suspected Problems (Last Updated 05/17/19 @ 15:23 by Mirella Singletary) STEMI (ST elevation myocardial infarction) (Acute) Reason for Visit: Hemodynamically, blood pressure is controlled. Pulse ox 92% on room air. Heart rate 88. Patient right femoral sheath is being removed. Objective: And is on hemodialysis. Complain of back pain as if he has to lay on the back all night. Vitals/I&O's: Vital Signs Temp Pulse Resp BP Pulse Ox 98.1 F 96 25 H 122/87 H 100 05/17/19 04:00 05/17/19 06:00 05/17/19 06:00 05/17/19 06:00 05/17/19 06:00 Oxygen Flow Rate (L/min) 2 Oxygen Delivery Method Nasal Cannula Weight: 171 lb 8.314 oz Body Mass Index (BMI) 26.9 Finger Stick Blood Glucose 123 Intake and Output for Last 24 Hours 05/15/19 05/16/19 05/17/19 23:59 23:59 23:59 Intake Total 695.0 / 695.0 485 / 485 Output Total 0 / 0 Balance 695.0 / 695.0 485 / 485 General: Alert, Oriented x3, Cooperative HEENT: Atraumatic, PERRLA, EOMI, Normocephalic Neck: Supple, No JVD, Negative Carotid Bruits Lungs: Clear to auscultation, No rhonchi, No wheeze, No rales, Diminished Cardiovascular: Regular rate, Regular Rhythm, Normal S1, Normal S2, No murmurs Abdomen: Bowel Sounds Present, Soft, Non Tender, Non-Distended Extremities: No edema, Capillary Refill Less than 3 Seconds Skin: No rashes, No breakdown Musculoskeletal: No Tenderness to Palpation of Joints or Extremities, Arthritic Changes Neurological: Cranial nerves II-XII grossly intact, Deep Tendon Reflexes 2+/4 and Symmetrical, Neuro grossly intact Psych/Mental Status: Normal Affect, Appropriate Laboratory Results 05/16/19 15:00: WBC 11.0, RBC 3.14 L, Hgb 10.6 L, Hct 32.2 L, MCV 102.5 H, MCH 33.8 H, MCHC 32.9, RDW Std Deviation 51.2 H, RDW Coeff of Kirsten 13.7, Plt Count 255, MPV 10.9, Immature Gran % (Auto) 0.500, Neut % (Auto) 82.2 H, Lymph % (Auto) 8.7 L, [place] % (Auto) 7.1, Eos % (Auto) 1.2, Baso % (Auto) 0.3, Absolute Neuts (auto) 9.0 H, Absolute Lymphs (auto) 0.96, Nucleated RBC % 0 05/16/19 15:00: Sodium 134 L, Potassium 3.7, Chloride 93 L, Carbon Dioxide 34.0 H, Anion Gap 7, BUN 12, Creatinine 3.80 H, Estim Creat Clear Calc 15.70, Est GFR (MDRD) Af Amer 20 L, Est GFR (MDRD) Non-Af 17 L, BUN/Creatinine Ratio 3.2 L, Glucose 292 H, Calcium 8.8, Troponin I 0.065 H 05/16/19 15:00: Magnesium 2.3 05/16/19 15:00: Hemoglobin A1c 6.3 05/16/19 16:17: Activated Clotting Time 175 H 05/16/19 17:03: Activated Clotting Time 268 H 05/16/19 18:55: Troponin I > 200.000 H* 05/16/19 19:35: Activated Clotting Time 180 H 05/16/19 21:14: POC Glucose 211 H 05/16/19 22:05: Troponin I > 200.000 H* 05/17/19 05:10: WBC 11.2 H, RBC 2.74 L, Hgb 9.1 L, Hct 28.7 L, MCV 104.7 H, MCH 33.2 H, MCHC 31.7 L, RDW Std Deviation 54.4 H, RDW Coeff of Kirsten 14.2, Plt Count 200, MPV 10.4, Immature Gran % (Auto) 0.400, Neut % (Auto) 83.8 H, Lymph % (Auto) 7.4 L, [place] % (Auto) 7.9, Eos % (Auto) 0.4, Baso % (Auto) 0.1, Absolute Neuts (auto) 9.4 H, Absolute Lymphs (auto) 0.83, Nucleated RBC % 0 05/17/19 05:10: Sodium 134 L, Potassium 6.2 H*, Chloride 97 L, Carbon Dioxide 31.0, Anion Gap 6, BUN 21 H, Creatinine 4.64 H, Estim Creat Clear Calc 12.86, Est GFR (MDRD) Af Amer 16 L, Est GFR (MDRD) Non-Af 13 L, BUN/Creatinine Ratio 4.5 L, Glucose 147 H, Calcium 7.8 L, Total Bilirubin 0.60, AST 701 H, ALT 64 H, Alkaline Phosphatase 82, Total Protein 7.0, Albumin 2.9 L, Globulin 4.1, Albumin/Globulin Ratio 0.7 L, Triglycerides 131, Cholesterol 158, LDL Cholesterol 94, VLDL Cholesterol 26, HDL Cholesterol 38 L Current Medications Acetaminophen (Tylenol) 650 mg PO Q6H PRN PRN PRN Reason: Pain Score 1-3/10 Al Hydroxide/Mg Hydroxide (Mylanta Ii) 30 ml PO Q6H PRN PRN PRN Reason: Gastric Burning Albuterol Sulfate (Ventolin Aerosols) 2.5 mg INHALATION Q2H PRN PRN PRN Reason: SOB/Wheezing Aspirin (Ecotrin) 81 mg PO DAILY@0800 [facility] Atropine Sulfate () 0.5 mg IV UD PRN PRN Reason: HR <50 bpm Carvedilol (Coreg) 6.25 mg PO BID [facility] Last Admin: 05/16/19 21:08 Dose: 6.25 mg Documented by: Dextrose (D50w Syringe) 0 gm IV X1 PRN; Protocol PRN Reason: Hypoglycemia Furosemide (Lasix) 80 mg PO 1000,1800 [facility] Last Admin: 05/16/19 19:43 Dose: Not Given Documented by: Glucagon () 1 mg IM .X1 PRN PRN Reason: Hypoglycemia Guaifenesin (Robitussin) 10 ml PO Q4H PRN PRN PRN Reason: COUGH Heparin Sodium (Beef Lung) (Heparin 500 Unit/5 Ml (100/Ml)) 500 unit IV UD PRN PRN Reason: HEPARIN FLUSH Heparin Sodium (Porcine) (Heparin Na) 5,000 unit SC Q12 DAVID Heparin Sodium/Sodium Chloride () 2,000 units IV UD [facility] Last Admin: 05/16/19 21:08 Dose: 2,000 units Documented by: Hydralazine HCl (Apresoline Iv) 10 mg IV Q4H PRN PRN PRN Reason: SBP > 160 Sodium Chloride () 1,000 mls @ 75 mls/hr IV .[id number] [facility] Last Infusion: 05/17/19 05:20 Dose: 75 mls/hr Documented by: Insulin Human Lispro (Humalog Kwikpen (Bkc)) 0 unit SC ACHS [facility]; Protocol Last Admin: 05/16/19 21:38 Dose: Not Given Documented by: Labetalol HCl (Trandate) 5 mg IV X1 PRN PRN Reason: SBP > 160 when pulling sheath Lorazepam (Ativan) 1 mg PO Q6H PRN PRN PRN Reason: BACK SPASMS/ANXIETY Last Admin: 05/16/19 21:11 Dose: 1 mg Documented by: Magnesium Hydroxide (Milk Of Magnesia) 30 ml PO DAILY PRN PRN PRN Reason: Constipation Melatonin (Melatonin) 3 mg PO QHS PRN PRN PRN Reason: INSOMNIA Metoclopramide HCl (Reglan) 5 mg IV Q6H PRN PRN PRN Reason: NAUSEA/VOMITING Mirtazapine (Remeron) 7.5 mg PO QHS [facility] Last Admin: 05/16/19 21:06 Dose: 7.5 mg Documented by: Morphine Sulfate () 2 - 4 mg IV Q4H PRN PRN PRN Reason: Pain Score 1-10/10 Nitroglycerin (Nitrostat) 0.4 mg SUBLINGUAL Q5M PRN PRN Reason: CARDIAC/CHEST PAIN Nitroglycerin (Nitrobid) 1 inch TRANSDERM. Q6 [facility] Stop: 05/17/19 10:00 Last Admin: 05/17/19 05:16 Dose: 1 inch Documented by: Ondansetron HCl (Zofran) 4 mg IV Q8H PRN PRN PRN Reason: NAUSEA/VOMITING Oxycodone HCl (Oxyir) 5 mg PO Q4H PRN PRN PRN Reason: Pain Score 4-5/10 Pravastatin Sodium (Pravachol) 80 mg PO QHS [facility] Last Admin: 05/16/19 21:07 Dose: 80 mg Documented by: Prochlorperazine Edisylate (Compazine Iv) 5 mg IV Q4H PRN PRN PRN Reason: Breakthrough Nausea/Vomiting Last Admin: 05/16/19 18:45 Dose: 5 mg Documented by: Psyllium Hydrophilic Mucilloid (Metamucil) 1 packet PO DAILY PRN PRN PRN Reason: Constipation Sacubitril/Valsartan (Entresto 24 Mg-26 Mg Tablet) 1 each PO DAILY [facility] Last Admin: 05/16/19 21:07 Dose: 1 each Documented by: Senna/Docusate Sodium (Senokot-S, Nita-Colace) 2 tablet PO BID PRN PRN Reason: Constipation Sodium Chloride () 500 ml IV BOLUS PRN PRN Reason: VASO-VAGAL PROTOCOL Sodium Chloride () 10 - 40 ml IV UD PRN PRN Reason: SALINE FLUSH Throat Lozenges (Cepacol Sore Throat Lozenge) 1 lozenge MUCOUS MEM Q2H PRN PRN PRN Reason: SORE THROAT Ticagrelor (Brilinta) 90 mg PO BID [facility] Last Admin: 05/16/19 21:08 Dose: 90 mg Documented by: STROKE Vital Signs/Narrative: Vital Signs Temp Pulse Resp BP Pulse Ox 05/17/19 06:00 96 25 H 122/87 H 100 05/17/19 05:16 101 H 123/82 H 05/17/19 05:00 97 17 123/82 H 100 05/17/19 04:00 98.1 F 104 H 21 H 122/78 H 96 05/17/19 03:32 107 H Medical Necessity - Tobacco Use Smoking Status: Never smoker Tobacco Use: Non-smoker Assessment/Plan All Active Problems (Last Updated 05/17/19 @ 15:23 by Mirella Singletary) STEMI (ST elevation myocardial infarction) (Acute) Non-STEMI (non-ST elevated myocardial infarction) (Acute) Unstable angina (Acute) Acute on chronic renal insufficiency (Resolved) Hyperkalemia (Resolved) Left flank pain (Resolved) Problem with dialysis access (Resolved) Uncontrollable nausea and vomiting (Resolved) The patient is a 73 y/o M with CAD s/p PCI x 11, HTN, HLD, Ischemic Cardiomyopathy, PAF, Diabetes mellitus type II, recent 11/2018 NSTEMI w/ PTCA of the stent thrombosis/restenosis of the mid RCA, ESRD ON HD is being admitted with left-sided chest pain with tooth ache radiation to left shoulder left upper extremity while he was working/taking. Patient also had nausea and diaphoresis and started about 1 PM on day of admission and lasted in ED 1. STEMI, posterior lateral as per EKG; EKG showed ST elevation in posterior and lateral leads and T inversion in inferior and lateral leads. Chest x-ray right-sided pleural effusion. Troponin elevated 0.065 and then after heart cath more than 200. Cardiac cath reported as EF 20 to 25% by LV gram. Depressed LV systolic function. Circumflex artery previous stent occluded, proximal RCA in-stent restenosis 25%, mid RCA in-stent restenosis 90%. Patient had PCI with stent put in mid circumflex, mid RCA and proximal RCA. EF 20 to 25%. Severe hypokinesis with depressed LV function. On cardiac medications including aspirin, carvedilol, sacubitril/valsartan and pravastatin. 2. CAD: Denies history of PCI in multiple cardiac arteries in 06/09/2017, PCI in 2014 and 2011. 3. Acute on chronic systolic heart failure rate secondary to STEMI: Echo in 10/28/2018 shows EF 45%. As per the cath, EF is 20 to 25%. On furosemide 80 mg twice daily. Patient is on dialysis. 4. Chronic normocytic anemia/AOCD: Admission hemoglobin 10.6, baseline 9-11, stable. Monitor CBC 5. Diabetes mellitus type II: A1c 8.1% in November 2018. Accu-Chek is incision cover with Humalog sliding scale. Repeat A1c 6.3. 6. Hypertension: Blood pressure is running 103/63: Hold antihypertensive medication with holding parameters including Entresto 7. Hyperlipidemia: Continue home statin regimen, FLP LDL 94, HDL 38. 8. PAF: Maintained on Coreg, not anticoagulated. 9. ESRD: HD Thursday, completed prior to ED presentation, Dr. Scott saw the patient. 10. DVT prophylaxis: SCDs, heparin starting 05/17/19 AM. 11. CODE status: Patient, power of patent attorney is her daughter Jojo Hernandez and living will. DNR CC arrest Laboratory Results 05/16/19 15:00: Sodium 134 L, Potassium 3.7, Chloride 93 L, Carbon Dioxide 34.0 H, Anion Gap 7, BUN 12, Creatinine 3.80 H, Estim Creat Clear Calc 15.70, Est GFR (MDRD) Af Amer 20 L, Est GFR (MDRD) Non-Af 17 L, BUN/Creatinine Ratio 3.2 L, Glucose 292 H, Calcium 8.8, Troponin I 0.065 H 05/16/19 15:00: Magnesium 2.3 05/16/19 15:00: Hemoglobin A1c 6.3 05/16/19 16:17: Activated Clotting Time 175 H 05/16/19 17:03: Activated Clotting Time 268 H 05/16/19 18:55: Troponin I > 200.000 H* 05/16/19 19:35: Activated Clotting Time 180 H 05/16/19 21:14: POC Glucose 211 H 05/16/19 22:05: Troponin I > 200.000 H* 05/17/19 05:10: WBC 11.2 H, RBC 2.74 L, Hgb 9.1 L, Hct 28.7 L, MCV 104.7 H, MCH 33.2 H, MCHC 31.7 L, RDW Std Deviation 54.4 H, RDW Coeff of Kirsten 14.2, Plt Count 200, MPV 10.4, Immature Gran % (Auto) 0.400, Neut % (Auto) 83.8 H, Lymph % (Auto) 7.4 L, [place] % (Auto) 7.9, Eos % (Auto) 0.4, Baso % (Auto) 0.1, Absolute Neuts (auto) 9.4 H, Absolute Lymphs (auto) 0.83, Nucleated RBC % 0 05/17/19 05:10: Sodium 134 L, Potassium 6.2 H*, Chloride 97 L, Carbon Dioxide 31.0, Anion Gap 6, BUN 21 H, Creatinine 4.64 H, Estim Creat Clear Calc 12.86, Est GFR (MDRD) Af Amer 16 L, Est GFR (MDRD) Non-Af 13 L, BUN/Creatinine Ratio 4.5 L, Glucose 147 H, Calcium 7.8 L, Total Bilirubin 0.60, AST 701 H, ALT 64 H, Alkaline Phosphatase 82, Total Protein 7.0, Albumin 2.9 L, Globulin 4.1, Albumin/Globulin Ratio 0.7 L, Triglycerides 131, Cholesterol 158, LDL Cholesterol 94, VLDL Cholesterol 26, HDL Cholesterol 38 L 05/17/19 07:30: Activated Clotting Time 131 05/17/19 11:02: POC Glucose 150 H Active Medications Acetaminophen (Tylenol) 650 mg PO Q6H PRN PRN PRN Reason: Pain Score 1-3/10 Al Hydroxide/Mg Hydroxide (Mylanta Ii) 30 ml PO Q6H PRN PRN PRN Reason: Gastric Burning Albuterol Sulfate (Ventolin Aerosols) 2.5 mg INHALATION Q2H PRN PRN PRN Reason: SOB/Wheezing Aspirin (Ecotrin) 81 mg PO DAILY@0800 [facility] Last Admin: 05/17/19 15:00 Dose: 81 mg Documented by: Atropine Sulfate () 0.5 mg IV UD PRN PRN Reason: HR <50 bpm Carvedilol (Coreg) 6.25 mg PO BID [facility] Last Admin: 05/17/19 15:02 Dose: Not Given Documented by: Dextrose (D50w Syringe) 0 gm IV X1 PRN; Protocol PRN Reason: Hypoglycemia Furosemide (Lasix) 80 mg PO 1000,1800 [facility] Last Admin: 05/17/19 15:02 Dose: Not Given Documented by: Glucagon () 1 mg IM .X1 PRN PRN Reason: Hypoglycemia Guaifenesin (Robitussin) 10 ml PO Q4H PRN PRN PRN Reason: COUGH Heparin Sodium (Beef Lung) (Heparin 500 Unit/5 Ml (100/Ml)) 500 unit IV UD PRN PRN Reason: HEPARIN FLUSH Heparin Sodium (Porcine) (Heparin Na) 5,000 unit SC Q12 [facility] Last Admin: 05/17/19 10:02 Dose: Not Given Documented by: Heparin Sodium/Sodium Chloride () 2,000 units IV UD [facility] Last Admin: 05/16/19 21:08 Dose: 2,000 units Documented by: Hydralazine HCl (Apresoline Iv) 10 mg IV Q4H PRN PRN PRN Reason: SBP > 160 Insulin Human Lispro (Humalog Kwikpen (Bkc)) 0 unit SC ACHS [facility]; Protocol Last Admin: 05/17/19 12:32 Dose: Not Given Documented by: Labetalol HCl (Trandate) 5 mg IV X1 PRN PRN Reason: SBP > 160 when pulling sheath Lorazepam (Ativan) 1 mg PO Q6H PRN PRN PRN Reason: BACK SPASMS/ANXIETY Last Admin: 05/17/19 08:11 Dose: 1 mg Documented by: Magnesium Hydroxide (Milk Of Magnesia) 30 ml PO DAILY PRN PRN PRN Reason: Constipation Melatonin (Melatonin) 3 mg PO QHS PRN PRN PRN Reason: INSOMNIA Metoclopramide HCl (Reglan) 5 mg IV Q6H PRN PRN PRN Reason: NAUSEA/VOMITING Mirtazapine (Remeron) 7.5 mg PO QHS [facility] Last Admin: 05/16/19 21:06 Dose: 7.5 mg Documented by: Morphine Sulfate () 2 - 4 mg IV Q4H PRN PRN PRN Reason: Pain Score 1-10/10 Nitroglycerin (Nitrostat) 0.4 mg SUBLINGUAL Q5M PRN PRN Reason: CARDIAC/CHEST PAIN Ondansetron HCl (Zofran) 4 mg IV Q8H PRN PRN PRN Reason: NAUSEA/VOMITING Oxycodone HCl (Oxyir) 5 mg PO Q4H PRN PRN PRN Reason: Pain Score 4-5/10 Pravastatin Sodium (Pravachol) [facility] Last Admin: 05/16/19 21:07 Dose: 80 mg Documented by: Prochlorperazine Edisylate (Compazine Iv) 5 mg IV Q4H PRN PRN PRN Reason: Breakthrough Nausea/Vomiting Last Admin: 05/16/19 18:45 Dose: 5 mg Documented by: Psyllium Hydrophilic Mucilloid (Metamucil) 1 packet PO DAILY PRN PRN PRN Reason: Constipation Sacubitril/Valsartan (Entresto 24 Mg-26 Mg Tablet) 1 each PO DAILY [facility] Last Admin: 05/17/19 15:01 Dose: Not Given Documented by: Senna/Docusate Sodium (Senokot-S, Nita-Colace) 2 tablet PO BID PRN PRN Reason: Constipation Sodium Chloride () 500 ml IV BOLUS PRN PRN Reason: VASO-VAGAL PROTOCOL Sodium Chloride () 10 - 40 ml IV UD PRN PRN Reason: SALINE FLUSH Throat Lozenges (Cepacol Sore Throat Lozenge) 1 lozenge MUCOUS MEM Q2H PRN PRN PRN Reason: SORE THROAT Ticagrelor (Brilinta) 90 mg PO BID [facility] Last Admin: 05/17/19 15:00 Dose: 90 mg Documented by: Code Visit Inpatient E&M: [id number] [place] [id number]
[2019-05-17 07:45] LABS: ACT Activated Clotting Time 131 sec (74-137)
[2019-05-17] MEDS: LORazepam 1 MG Tablet PO ×2 (08:11→21:23)
--- NOTE | 2019-05-17 08:49 | PN.CARD_ITS ---
Subjectve: The patient is awake and alert. His main concern today is that he feels somewhat short of breath and dyspneic. Objective: Vital Signs Temp Pulse Resp BP Pulse Ox 98.1 F 88 14 125/90 H 100 05/17/19 04:00 05/17/19 08:28 05/17/19 08:28 05/17/19 08:28 05/17/19 08:28 Oxygen Flow Rate (L/min) 2 Oxygen Delivery Method Room Air Weight: 171 lb 8.314 oz Body Mass Index (BMI) 26.9 Finger Stick Blood Glucose 123 Intake and Output for Last 24 Hours 05/15/19 05/16/19 05/17/19 23:59 23:59 23:59 Intake Total 695.0 / 695.0 485 / 485 Output Total 0 / 0 Balance 695.0 / 695.0 485 / 485 General: Awake, Alert, Oriented x 3, Cooperative, No Acute Distress HEENT: Atraumatic, Normocephalic, PERRL, EOMI Oral: Moist Mucosa Neck: Supple, Good ROM, No JVD Lungs: Expiratory Wheezes-Nestor Cardiovascular: Regular Rhythm, Normal S1, Normal S2 Vascular: Normal Femoral Pulses Abdomen: Bowel Sounds Present, Soft, Non Tender Psych/Mental Status: Appropriate 05/16/19 15:00: WBC 11.0, RBC 3.14 L, Hgb 10.6 L, Hct 32.2 L, MCV 102.5 H, MCH 33.8 H, MCHC 32.9, Plt Count 255, MPV 10.9, Immature Gran % (Auto) 0.500, Neut % (Auto) 82.2 H, Lymph % (Auto) 8.7 L, [place] % (Auto) 7.1, Eos % (Auto) 1.2, Baso % (Auto) 0.3, Absolute Neuts (auto) 9.0 H, Nucleated RBC % 0 05/16/19 15:00: Sodium 134 L, Potassium 3.7, Chloride 93 L, Carbon Dioxide 34.0 H, Anion Gap 7, BUN 12, Creatinine 3.80 H, Est GFR (MDRD) Af Amer 20 L, Est GFR (MDRD) Non-Af 17 L, BUN/Creatinine Ratio 3.2 L, Glucose 292 H, Calcium 8.8, Troponin I 0.065 H 05/16/19 15:00: Magnesium 2.3 05/16/19 15:00: Hemoglobin A1c 6.3 05/16/19 18:55: Troponin I > 200.000 H* 05/16/19 22:05: Troponin I > 200.000 H* 05/17/19 05:10: WBC 11.2 H, RBC 2.74 L, Hgb 9.1 L, Hct 28.7 L, MCV 104.7 H, MCH 33.2 H, MCHC 31.7 L, Plt Count 200, MPV 10.4, Immature Gran % (Auto) 0.400, Neut % (Auto) 83.8 H, Lymph % (Auto) 7.4 L, [place] % (Auto) 7.9, Eos % (Auto) 0.4, Baso % (Auto) 0.1, Absolute Neuts (auto) 9.4 H, Nucleated RBC % 0 05/17/19 05:10: Sodium 134 L, Potassium 6.2 H*, Chloride 97 L, Carbon Dioxide 31.0, Anion Gap 6, BUN 21 H, Creatinine 4.64 H, Est GFR (MDRD) Af Amer 16 L, Est GFR (MDRD) Non-Af 13 L, BUN/Creatinine Ratio 4.5 L, Glucose 147 H, Calcium 7.8 L , Total Bilirubin 0.60, Triglycerides 131, Cholesterol 158, LDL Cholesterol 94, VLDL Cholesterol 26, HDL Cholesterol 38 L Rhythm: Sinus rhythm EKG: Sinus rhythm; right bundle branch block pattern; compared to the previous ECGs the previous ST segment changes appear to be resolving towards baseline Cardiac Cath/PCI: 05-16-2019 CONCLUSIONS Global LV systolic dysfunction- Severe LVEF: by LV gram 20-25 % Depressed Left Ventricular systolic function - Severe Elevated Left Ventricular End Diastolic Pressure Double vessel CAD of the LCX and RCA Non obstructive coronary arteries Successful PTCA/HASMUKH emergent heparin/Integrilin bolus assisted PCI to mid LCX with a 2.5 x 16 Promus Synergy, post dilated with a 3.0 x 8 NC balloon using double wire technique; 100%-->0%, no dissection. Successful PTCA/HASMUKH to mid RCA with a 2.5 x 10 Angiosculpt, followed by a 2.5 x 14 Resolute, post dilated with a 3.0 x 8 NC baloon; 90%-->0%, no dissection. Successful PTCA/HASMUKH PCI with 2.5 x 10 Angiosculpt to proximal RCA, followed with a 3.0 x 15 Resolute HASMUKH, post dilated throughout with a 3.0 x 8 NC Balloon; 75%-->0%, no dissection. CORONARY ANGIOGRAPHY DOMINANCE: Co- Dominant LEFT HEART ASSESSMENT Left Ventricular Ejection Fraction: by LV Gram 20-25 % Depressed Left Ventricular systolic function LVEDP: 25 mmHg Elevated Left Ventricular End Diastolic Pressure Global Hypokinesis - Severe LEFT MAIN: Non-obstructive LEFT ANTERIOR DESCENDING ARTERY: PROX LAD: Previously placed stent is patent MID LAD: Mild luminal irregularities less than 30% CIRCUMFLEX ARTERY: MID CIRC: Previously placed stent is occluded RIGHT CORONARY ARTERY: PROX RCA: Instent restenosis 75 % MID RCA: Instent restenosis 90 % Medical Necessity - Tobacco Use Smoking Status: Never smoker Tobacco Use: Non-smoker Assessment/Plan 1. Acute ST segment elevation IN The patient has undergone evaluation and care for an acute ST segment elevation IN. This included urgent/emergent diagnostic cardiac catheterization and subsequent PCI as noted. The present time the patient continues to recuperate in the ICU. He will continue to be monitored. He will continue medical management. 2. CAD status post PCI The patient will continue to be monitored. He will continue medical therapy w ith adjustment as tolerated. 3. Ischemic mediated cardiomyopathy The patient's overall LV systolic function/LVEF appears to have decreased compared to his most recent previous noninvasive study. It had been noted to be decreased in the past and appeared to improve. Hopefully with his recent PCI his overall LV systolic function/LVEF will improve again. He will continue medical management. His LV wall motion systolic function will be followed with echocardiographic studies. 4. Paroxysmal atrial fibrillation The patient's rate and rhythm will be monitored. He will continue medical adju stment as deemed appropriate. 5. Hyperlipidemia The patient will continue medical management. 6. Hypertension The patient will need to continue medical therapy with adjustment as deemed appropriate taken into consideration his renal insufficiency, etc. 7. Diabetes mellitus Patient will continue evaluation care per internal medicine. 8. Chronic renal insufficiency/chronic hemodialysis The patient should be considered for additional dialysis therapy this day to assist with volume management and his electrolyte disturbance-hyperkalemia. This note was generated using a voice recognition system and there may be incorrect words, spelling or punctuation that were not noted when reviewing the office note prior to saving.
[2019-05-17] MEDS: Furosemide 100 MG/10 ML Vial 80 MG IV (09:09)
--- NOTE | 2019-05-17 10:35 | CASEMGMT ---
RN CM Note: Attempted x 2 to complete RN CM Assessment. Pt receiving dialysis, very sleepy and unable to participate. Andrew SCOTTN RN ACM
[2019-05-17 11:05] LABS: Bedside Glucose 150 mg/dL (70-110)
--- NOTE | 2019-05-17 11:48 | PCM.CONS.R ---
Problem List (1) ESRD (end stage renal disease) on dialysis Status: Chronic Consultation - Renal 05/17/19 PCP/ Referring MD: Requesting physician: [] Primary care physician: Sean Medina MD Reason for Consultation:: ESRD - History of Present Illness History of Present Illness: The patient is a 73 year old M presented to the hospital with complaints of chest pain and shortness of breath. Was admitted with ST elevation DC. Status post coronary intervention and stenting. Currently admitted to the ICU. This morning he complains of shortness of breath. Chest x-ray from yesterday showed right-sided pleural effusion. He has known history of end-stage renal disease, on hemodialysis Thursday, Thursday, Thursday schedule. Last dialysis was yesterday. Access is left arm AV fistula. - Allergies Allergies: Allergies codeine Allergy (Verified 05/16/19 15:05) Itching - Current Medications Current Medications: Current Medications Acetaminophen (Tylenol) 650 mg PO Q6H PRN PRN PRN Reason: Pain Score 1-3/10 Al Hydroxide/Mg Hydroxide (Mylanta Ii) 30 ml PO Q6H PRN PRN PRN Reason: Gastric Burning Albuterol Sulfate (Ventolin Aerosols) 2.5 mg INHALATION Q2H PRN PRN PRN Reason: SOB/Wheezing Aspirin (Ecotrin) 81 mg PO DAILY@0800 [facility] Atropine Sulfate () 0.5 mg IV UD PRN PRN Reason: HR <50 bpm Carvedilol (Coreg) 6.25 mg PO BID [facility] Last Admin: 05/16/19 21:08 Dose: 6.25 mg Documented by: Dextrose (D50w Syringe) 0 gm IV X1 PRN; Protocol PRN Reason: Hypoglycemia Furosemide (Lasix) 80 mg PO 1000,1800 [facility] Last Admin: 05/16/19 19:43 Dose: Not Given Documented by: Glucagon () 1 mg IM .X1 PRN PRN Reason: Hypoglycemia Guaifenesin (Robitussin) 10 ml PO Q4H PRN PRN PRN Reason: COUGH Heparin Sodium (Beef Lung) (Heparin 500 Unit/5 Ml (100/Ml)) 500 unit IV UD PRN PRN Reason: HEPARIN FLUSH Heparin Sodium (Porcine) (Heparin Na) 5,000 unit SC Q12 [facility] Heparin Sodium/Sodium Chloride () 2,000 units IV UD [facility] Last Admin: 05/16/19 21:08 Dose: 2,000 units Documented by: Hydralazine HCl (Apresoline Iv) 10 mg IV Q4H PRN PRN PRN Reason: SBP > 160 Insulin Human Lispro (Humalog Kwikpen (Bkc)) 0 unit SC [facility]; Protocol Last Admin: 05/16/19 21:38 Dose: Not Given Documented by: Labetalol HCl (Trandate) 5 mg IV X1 PRN PRN Reason: SBP > 160 when pulling sheath Lorazepam (Ativan) 1 mg PO Q6H PRN PRN PRN Reason: BACK SPASMS/ANXIETY Last Admin: 05/17/19 08:11 Dose: 1 mg Documented by: Magnesium Hydroxide (Milk Of Magnesia) 30 ml PO DAILY PRN PRN PRN Reason: Constipation Melatonin (Melatonin) 3 mg PO QHS PRN PRN PRN Reason: INSOMNIA Metoclopramide HCl (Reglan) 5 mg IV Q6H PRN PRN PRN Reason: NAUSEA/VOMITING [facility] Last Admin: 05/16/19 21:06 Dose: 7.5 mg Documented by: Morphine Sulfate () 2 - 4 mg IV Q4H PRN PRN PRN Reason: Pain Score 1-10/10 Nitroglycerin (Nitrostat) 0.4 mg SUBLINGUAL Q5M PRN PRN Reason: CARDIAC/CHEST PAIN Ondansetron HCl (Zofran) 4 mg IV Q8H PRN PRN PRN Reason: NAUSEA/VOMITING Oxycodone HCl (Oxyir) 5 mg PO Q4H PRN PRN PRN Reason: Pain Score 4-5/10 Pravastatin Sodium [facility]achol) [facility] Last Admin: 05/16/19 21:07 Dose: 80 mg Documented by: Prochlorperazine Edisylate (Compazine Iv) 5 mg IV Q4H PRN PRN PRN Reason: Breakthrough Nausea/Vomiting Last Admin: 05/16/19 18:45 Dose: 5 mg Documented by: Psyllium Hydrophilic Mucilloid (Metamucil) 1 packet PO DAILY PRN PRN PRN Reason: Constipation Sacubitril/Valsartan (Entresto 24 Mg-26 Mg Tablet) 1 each PO DAILY [facility] Last Admin: 05/16/19 21:07 Dose: 1 each Documented by: Senna/Docusate Sodium (Senokot-S, Nita-Colace) 2 tablet PO BID PRN PRN Reason: Constipation Sodium Chloride () 500 ml IV BOLUS PRN PRN Reason: VASO-VAGAL PROTOCOL Sodium Chloride () 10 - 40 ml IV UD PRN PRN Reason: SALINE FLUSH Throat Lozenges (Cepacol Sore Throat Lozenge) 1 lozenge MUCOUS MEM Q2H PRN PRN PRN Reason: SORE THROAT Ticagrelor (Brilinta) 90 mg PO BID [facility] Last Admin: 05/16/19 21:08 Dose: 90 mg Documented by: - Past Medical History Past Medical History (Chronic Problems): Chronic Problems (Last Updated 12/02/18 @ 08:[address] Marcy Anthony, DO) Non compliance w medication regimen (Chronic) Depression (Chronic) Presence of stent in coronary artery (Chronic ~12/01/18) thrombectomy with PTCA with HASMUKH to proximal, mid and distal RCA 03/03; PTCA with stenting to mid & distal RCA 07/05, PTCA of proximal LAD 07/05; Successful PTCA/HASMUKH of the of proxima RCA in stent restenosis, utilizing a 2.0 x 12 Angiosculpt, followed by a 3.0 x 33 Elunira HASMUKH; 85%-->0%, no dissection.Successful PTCA/HASMUKH of the mid LPL branch of the LCX with a 3.0 x 16 Promus Synergy; 75%-->0%, no dissection; Successful PTCA/HASMUKH of the mid LCX with a 2.75 x 16 Promus Synergy; 75%-->0%, no dissection. No PCI of smal OM branch perfomed due to small vessel disease. 05/20/18; Successful PTCA/HASMUKH proximal LCX with a 3.0 x 16 Promus Synergy, 85%-->0%, no dissection. Successful PTCA/HASMUKH mid RCA ISR with a 2.5 x 10 Angiosculpt, followed with a 3.0 x 38 Promus Synergy, post dilated with a 3.0 and 3.5 x 12 NC balloon; 85%-->0%, no dissection. 10/28/18; Successful PTCA of stent thrombosis/restenosis in mid RCA. 12/01/18 Essential hypertension (Chronic) ESRD (end stage renal disease) on dialysis (Chronic) Old myocardial infarction (Chronic) Inferior DC, anterior DC 07/05 intermission coordinator use of drug (Chronic) Antihyperlipidemic Family history of hypertension (Chronic) Other secondary pulmonary hypertension (Chronic) Subendocardial ischemia (Chronic) Ischemic cardiomyopathy (Chronic) Nonrheumatic mitral valve regurgitation (Chronic) Rheumatic tricuspid insufficiency (Chronic) Paroxysmal atrial fibrillation (Chronic) Atherosclerotic heart disease of [place] coronary artery without angina pectoris (Chronic) PTCA/HASMUKH to proximal RCA, mid LPL branch of the LCx, in mid LCx in April 2017; angioplasty and PCI to mid and distal RCA in 2014; thrombectomy and PCI to proximal, mid, and distal RCA in 2011; Type II diabetes mellitus (Chronic) Hyperlipidemia associated with type 2 diabetes mellitus (Chronic) HLD (hyperlipidemia) (Chronic) - Past Surgical History Surgical History: angioplasty - PCI x 11, most recently 11/2018., - - Significant PCI history, most recently 11/2018 with total PCI x 11 per patient report, 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 - Social History Smoking Status: Never smoker Alcohol: None Drugs: None - Family History Maternal Family History: Family History (Last Reviewed 09/30/18 @ 13:10 by Mirella Singletary) Mother Breast cancer Myocardial infarction CAD (coronary artery disease) Father Colon cancer Hypertension Myocardial infarction Other Family history of hypertension History Items: Cancer, Heart Disease, Hypertension Paternal Family History: Family History (Last Reviewed 09/30/18 @ 13:10 by Mirella Singletary) Mother Breast cancer Myocardial infarction CAD (coronary artery disease) Father Colon cancer Hypertension Myocardial infarction Other Family history of hypertension History Items: Cancer, Heart Disease, Hypertension Review of Systems Constitutional: Denies: Chills, Fever, Weight Change HEENT: Denies: Head Aches, Sinus Congestion, Sinus Drainage Cardiovascular: Denies: Chest Pain, Palpitations Respiratory: Reports: Shortness of Breath, Shortness of breath at rest. Denies: Cough, Sputum production Gastrointestinal: Denies: Abdominal Pain, Nausea, Vomiting Genitourinary: Denies: Dysuria Musculoskeletal: Denies: Joint Pain, Joint Tenderness Skin: Denies: Rash, Wounds Neurological: Denies: Numbness, Tingling, Focal weakness Psychiatric: Denies: Anxiety, Depression, Homicidal Ideations, Suicidal Ideations Hematologic/ Lymphatic: Denies: Easy Bruising, Easy Bleeding Patient Problems: Active and Suspected Problems (Last Updated 12/02/18 @ 08:[address] Marcy Anthony DO) STEMI (ST elevation myocardial infarction) (Acute) - Physical Exam Vitals/I&O's: Vital Signs Temp Pulse Resp BP Pulse Ox 98.1 F 88 14 125/90 H 100 05/17/19 04:00 05/17/19 08:28 05/17/19 08:28 05/17/19 08:28 05/17/19 08:28 Oxygen Flow Rate (L/min) 2 Oxygen Delivery Method Room Air Weight: 77.8 kg Body Mass Index (BMI) 26.9 Finger Stick Blood Glucose 123 Intake and Output for Last 24 Hours 05/15/19 05/16/19 05/17/19 23:59 23:59 23:59 Intake Total 695.0 / 695.0 1060 / 1060 Output Total 0 / 0 Balance 695.0 / 695.0 1060 / 1060 General: Alert, Oriented x3, Cooperative HEENT: Atraumatic, PERRLA, EOMI, Normocephalic Neck: Supple, No JVD, Negative Carotid Bruits Lungs: Diminished Cardiovascular: Regular rate, No murmurs Abdomen: Bowel Sounds Present, Soft, Non Tender Extremities: No edema, Capillary Refill Less than 3 Seconds Skin: No rashes, No breakdown Musculoskeletal: No Tenderness to Palpation of Joints or Extremities Neurological: Cranial nerves II-XII grossly intact Psych/Mental Status: Normal Affect, Appropriate Laboratory Results 05/16/19 15:00: WBC 11.0, RBC 3.14 L, Hgb 10.6 L, Hct 32.2 L, MCV 102.5 H, MCH 33.8 H, MCHC 32.9, RDW Std Deviation 51.2 H, RDW Coeff of Kirsten 13.7, Plt Count 255, MPV 10.9, Immature Gran % (Auto) 0.500, Neut % (Auto) 82.2 H, Lymph % (Auto) 8.7 L, Millard % (Auto) 7.1, Eos % (Auto) 1.2, Baso % (Auto) 0.3, Absolute Neuts (auto) 9.0 H, Absolute Lymphs (auto) 0.96, Nucleated RBC % 0 05/16/19 15:00: Sodium 134 L, Potassium 3.7, Chloride 93 L, Carbon Dioxide 34.0 H, Anion Gap 7, BUN 12, Creatinine 3.80 H, Estim Creat Clear Calc 15.70, Est GFR (MDRD) Af Amer 20 L, Est GFR (MDRD) Non-Af 17 L, BUN/Creatinine Ratio 3.2 L, Glucose 292 H, Calcium 8.8, Troponin I 0.065 H 05/16/19 15:00: Magnesium 2.3 05/16/19 15:00: Hemoglobin A1c 6.3 05/16/19 16:17: Activated Clotting Time 175 H 05/16/19 17:03: Activated Clotting Time 268 H 05/16/19 18:55: Troponin I > 200.000 H* 05/16/19 19:35: Activated Clotting Time 180 H 05/16/19 21:14: POC Glucose 211 H 05/16/19 22:05: Troponin I > 200.000 H* 05/17/19 05:10: WBC 11.2 H, RBC 2.74 L, Hgb 9.1 L, Hct 28.7 L, MCV 104.7 H, MCH 33.2 H, MCHC 31.7 L, RDW Std Deviation 54.4 H, RDW Coeff of Kirsten 14.2, Plt Count 200, MPV 10.4, Immature Gran % (Auto) 0.400, Neut % (Auto) 83.8 H, Lymph % (Auto) 7.4 L, Millard % (Auto) 7.9, Eos % (Auto) 0.4, Baso % (Auto) 0.1, Absolute Neuts (auto) 9.4 H, Absolute Lymphs (auto) 0.83, Nucleated RBC % 0 05/17/19 05:10: Sodium 134 L, Potassium 6.2 H*, Chloride 97 L, Carbon Dioxide 31.0, Anion Gap 6, BUN 21 H, Creatinine 4.64 H, Estim Creat Clear Calc 12.86, Est GFR (MDRD) Af Amer 16 L, Est GFR (MDRD) Non-Af 13 L, BUN/Creatinine Ratio 4.5 L, Glucose 147 H, Calcium 7.8 L, Total Bilirubin 0.60, AST 701 H, ALT 64 H, Alkaline Phosphatase 82, Total Protein 7.0, Albumin 2.9 L, Globulin 4.1, Albumin/Globulin Ratio 0.7 L, Triglycerides 131, Cholesterol 158, LDL Cholesterol 94, VLDL Cholesterol 26, HDL Cholesterol 38 L 05/17/19 07:30: Activated Clotting Time 131 05/17/19 11:02: POC Glucose 150 H Current Medications Acetaminophen (Tylenol) 650 mg PO Q6H PRN PRN PRN Reason: Pain Score 1-3/10 Al Hydroxide/Mg Hydroxide (Mylanta Ii) 30 ml PO Q6H PRN PRN PRN Reason: Gastric Burning Albuterol Sulfate (Ventolin Aerosols) 2.5 mg INHALATION Q2H PRN PRN PRN Reason: SOB/Wheezing Aspirin (Ecotrin) 81 mg PO DAILY@0800 [facility] Atropine Sulfate () 0.5 mg IV UD PRN PRN Reason: HR <50 bpm Carvedilol (Coreg) 6.25 mg PO BID [facility] Last Admin: 05/16/19 21:08 Dose: 6.25 mg Documented by: Dextrose (D50w Syringe) 0 gm IV X1 PRN; Protocol PRN Reason: Hypoglycemia Furosemide (Lasix) 80 mg PO 1000,1800 [facility] Last Admin: 05/16/19 19:43 Dose: Not Given Documented by: Glucagon () 1 mg IM .X1 PRN PRN Reason: Hypoglycemia Guaifenesin (Robitussin) 10 ml PO Q4H PRN PRN PRN Reason: COUGH Heparin Sodium (Beef Lung) (Heparin 500 Unit/5 Ml (100/Ml)) 500 unit IV UD PRN PRN Reason: HEPARIN FLUSH Heparin Sodium (Porcine) (Heparin Na) 5,000 unit SC Q12 [facility] Heparin Sodium/Sodium Chloride () 2,000 units IV UD [facility] Last Admin: 05/16/19 21:08 Dose: 2,000 units Documented by: Hydralazine HCl (Apresoline Iv) 10 mg IV Q4H PRN PRN PRN Reason: SBP > 160 Insulin Human Lispro (Humalog Kwikpen (Bkc)) 0 unit SC [facility]; Protocol Last Admin: 05/16/19 21:38 Dose: Not Given Documented by: Labetalol HCl (Trandate) 5 mg IV X1 PRN PRN Reason: SBP > 160 when pulling sheath Lorazepam (Ativan) 1 mg PO Q6H PRN PRN PRN Reason: BACK SPASMS/ANXIETY Last Admin: 05/17/19 08:11 Dose: 1 mg Documented by: Magnesium Hydroxide (Milk Of Magnesia) 30 ml PO DAILY PRN PRN PRN Reason: Constipation Melatonin (Melatonin) 3 mg PO QHS PRN PRN PRN Reason: INSOMNIA Metoclopramide HCl (Reglan) 5 mg IV Q6H PRN PRN PRN Reason: NAUSEA/VOMITING Mirtazapine (Remeron) 7.5 mg PO QHS [facility] Last Admin: 05/16/19 21:06 Dose: 7.5 mg Documented by: Morphine Sulfate () 2 - 4 mg IV Q4H PRN PRN PRN Reason: Pain Score 1-10/10 Nitroglycerin (Nitrostat) 0.4 mg SUBLINGUAL Q5M PRN PRN Reason: CARDIAC/CHEST PAIN Ondansetron HCl (Zofran) 4 mg IV Q8H PRN PRN PRN Reason: NAUSEA/VOMITING Oxycodone HCl (Oxyir) 5 mg PO Q4H PRN PRN PRN Reason: Pain Score 4-5/10 Pravastatin Sodium (Pravachol) 80 mg PO QHS [facility] Last Admin: 05/16/19 21:07 Dose: 80 mg Documented by: Prochlorperazine Edisylate (Compazine Iv) 5 mg IV Q4H PRN PRN PRN Reason: Breakthrough Nausea/Vomiting Last Admin: 05/16/19 18:45 Dose: 5 mg Documented by: Psyllium Hydrophilic Mucilloid (Metamucil) 1 packet PO DAILY PRN PRN PRN Reason: Constipation Sacubitril/Valsartan (Entresto 24 Mg-26 Mg Tablet) 1 each PO DAILY [facility] Last Admin: 05/16/19 21:07 Dose: 1 each Documented by: Senna/Docusate Sodium (Senokot-S, Nita-Colace) 2 tablet PO BID PRN PRN Reason: Constipation Sodium Chloride () 500 ml IV BOLUS PRN PRN Reason: VASO-VAGAL PROTOCOL Sodium Chloride () 10 - 40 ml IV UD PRN PRN Reason: SALINE FLUSH Throat Lozenges (Cepacol Sore Throat Lozenge) 1 lozenge MUCOUS MEM Q2H PRN PRN PRN Reason: SORE THROAT Ticagrelor (Brilinta) 90 mg PO BID [facility] Last Admin: 05/16/19 21:08 Dose: 90 mg Documented by: Assessment/Plan All Active Problems (Last Updated 12/02/18 @ 08:[address] Marcy Anthony DO) STEMI (ST elevation myocardial infarction) (Acute) Post PTCA (Acute ~12/01/18) Non-STEMI (non-ST elevated myocardial infarction) (Acute) Unstable angina (Acute) Acute on chronic renal insufficiency (Resolved) Hyperkalemia (Resolved) Left flank pain (Resolved) Problem with dialysis access (Resolved) Uncontrollable nausea and vomiting (Resolved) End-stage renal disease. Dialysis arranged for today. Discussed with staff. Seen on dialysis today. Hyperkalemia. Use 2K bath. Dyspnea. Chest x-ray from yesterday showed right-sided pleural effusion. He does have some basilar rales. Fluid removal 3 to 4 L as tolerated
--- NOTE | 2019-05-17 14:45 | DIALYSIS ---
HD X 3.5 HRS ON 2K BATH. [id number]. TOLERATED FAIR. BP DROPPED IN 80'S BUT RESPONDED TO NS FLUSHES. SEE DIALYSIS RECORD IN CHART FOR DETAILS. STASIS AT [facility], DSG AT SITES. PT STABLE POST TX REPORT TO OBI GRADY
--- NOTE | 2019-05-17 14:56 | CASEMGMT ---
RN CM Note: Attempted again to see pt. Nursing, staff busy with pt. Will see tomorrow. Andrew SCOTTN RN ACM
[2019-05-17] MEDS: Aspirin E.C. 81 MG Tablet PO (15:00)
[2019-05-17] MEDS: TICAGRELOR 90 MG TABLET PO ×2 (15:00→21:17)
[2019-05-17 16:45] LABS: Bedside Glucose 123 mg/dL (70-110)
[2019-05-17] MEDS: Furosemide 80 MG Tablet PO (17:56)
--- NOTE | 2019-05-17 20:39 | CPS ---
EMPLOYEE COMMUNICATIONS COORDINATOR tried to start IS with patient. Patient refused to let EMPLOYEE COMMUNICATIONS COORDINATOR do IS teaching.
--- NOTE | 2019-05-17 21:05 | NURSING ---
Pt restless, states I don't know why. Denies discomfort, just wants to get up and move. Pt given PRN ativan 1mg PO.
[2019-05-17] MEDS: Carvedilol 6.25 MG Tablet PO (21:17)
[2019-05-17] MEDS: Mirtazapine 15 MG Tablet 7.5 MG PO (21:18)
[2019-05-17] MEDS: Pravastatin 80 MG Tablet PO (21:18)
[2019-05-17] MEDS: Heparin Injection (Vial) 5,000 UNIT/ML VIAL 5000 UNIT SC (21:18)
[2019-05-17 21:26] LABS: Bedside Glucose 111 mg/dL (70-110)
[2019-05-18] VITALS (22 sets, daily range): BP systolic 94–150; BP diastolic 52–96; PULSE 72–99; RESP 14–25; TEMP 36.5–37.1; O2SAT 90–97; BMI 28.3
--- NOTE | 2019-05-18 | NURSING ---
Pt remains restless, trying to swing legs out of bed, able to follow directions but chooses not to; pt states you guys are really to piss me off. When questioned as to what was upsetting him, pt responded Everything! and then closed eyes tightly and refused to talk anymore to this nurse. Attempted to replace oxygen via NC and pt repeatedly removed and guarded staff's hands away from his face. Pt reminded that he's demonstrating some sleep apnea causing his oxygen sat to drop; pt also informed that this can be damaging to his heart and brain, pt's response was I don't give a damn, leave me alone. Pt does allow the pulse ox sensor to remain for monitoring at this time.
--- NOTE | 2019-05-18 02:25 | NURSING ---
Pt assisted to sitting up in bed, attempts to climb over SRail and when questioned why, pt responds I'm going home. Pt informed that the plan is for him to have his regular dialysis run later this morning and get him discharged home after. Pt appears to be accepting of that information and reclines back in bed. Pt denies needing urinal and denies any discomfort. Pt does admit to using snuff tobacco, 1 can every 2 days but refuses the need for a damn nicotine patch.
[2019-05-18 05:36] LABS: Anion Gap 8 (5-15); BUN 16 mg/dL (7-18); BUN/Creat Ratio 3.9 RATIO (10-20); Calcium,Total 8.9 mg/dL (8.5-10.1); Chloride 96 mmol/L (98-107); Creatinine, Serum 4.09 mg/dL (0.70-1.30); EST Glomerular Filtration Rate 15 mL/min (>60); Est Glom Filt Rate - Afr Amer 18 mL/min (>60); Estimated Creatinine Clearance 14.59 ml/min; Glucose 120 mg/dL (74-106); Potassium 3.8 mmol/L (3.5-5.1); Sodium Level 136 mmol/L (136-145)
--- NOTE | 2019-05-18 07:32 | PCM.PN.HOSP ---
Patient Problems: Active and Suspected Problems (Last Updated 05/17/19 @ 15:23 by Mirella Singletary) STEMI (ST elevation myocardial infarction) (Acute) Reason for Visit: STEMI. Objective: The patient is irritable and grumpy. Blood pressure has recovered. 131/66, 150/73. Heart rate in 90s. Telemetry reviewed; sinus rhythm with right bundle branch block and PVCs. Vitals/I&O's: Vital Signs Temp Pulse Resp BP Pulse Ox 97.9 F 93 21 H 150/73 H 93 05/18/19 04:00 05/18/19 06:00 05/18/19 06:00 05/18/19 06:00 05/18/19 06:00 Oxygen Flow Rate (L/min) 2 Oxygen Delivery Method Room Air Weight: 163 lb 12.855 oz Body Mass Index (BMI) 26.9 Finger Stick Blood Glucose 123 Intake and Output for Last 24 Hours 05/16/19 05/17/19 05/18/19 23:59 23:59 23:59 Intake Total 695.0 / 695.0 1060 / 1260 200 / 200 Output Total 0 / 0 2750 / 2950 200 / 200 Balance 695.0 / 695.0 -1690 / -1690 0 / 0 General: Alert, Oriented x3, Cooperative HEENT: Atraumatic, PERRLA, EOMI, Normocephalic Neck: Supple, No JVD, Negative Carotid Bruits Lungs: Clear to auscultation, No rhonchi, No wheeze, No rales, Diminished Cardiovascular: Regular rate, Regular Rhythm, Normal S1, Normal S2, No murmurs Abdomen: Bowel Sounds Present, Soft, Non Tender Extremities: No edema, Capillary Refill Less than 3 Seconds Skin: No rashes, No breakdown Musculoskeletal: No Tenderness to Palpation of Joints or Extremities, Arthritic Changes Neurological: Cranial nerves II-XII grossly intact, Deep Tendon Reflexes 2+/4 and Symmetrical, Neuro grossly intact Psych/Mental Status: Normal Affect, Appropriate Laboratory Results 05/17/19 07:30: Activated Clotting Time 131 05/17/19 11:02: POC Glucose 150 H 05/17/19 16:36: POC Glucose 123 H 05/17/19 21:16: POC Glucose 111 H 05/18/19 05:00: Sodium 136, Potassium 3.8, Chloride 96 L, Carbon Dioxide 32.0, Anion Gap 8, BUN 16, Creatinine 4.09 H, Estim Creat Clear Calc 14.59, Est GFR (MDRD) Af Amer 18 L, Est GFR (MDRD) Non-Af 15 L, BUN/Creatinine Ratio 3.9 L, Glucose 120 H, Calcium 8.9 Current Medications Acetaminophen (Tylenol) 650 mg PO Q6H PRN PRN PRN Reason: Pain Score 1-3/10 Al Hydroxide/Mg Hydroxide (Mylanta Ii) 30 ml PO Q6H PRN PRN PRN Reason: Gastric Burning Albuterol Sulfate (Ventolin Aerosols) 2.5 mg INHALATION Q2H PRN PRN PRN Reason: SOB/Wheezing Aspirin (Ecotrin) 81 mg PO DAILY@0800 [facility] Last Admin: 05/17/19 15:00 Dose: 81 mg Documented by: Atropine Sulfate () 0.5 mg IV UD PRN PRN Reason: HR <50 bpm Carvedilol (Coreg) 6.25 mg PO BID [facility] Last Admin: 05/17/19 21:17 Dose: 6.25 mg Documented by: Dextrose (D50w Syringe) 0 gm IV X1 PRN; Protocol PRN Reason: Hypoglycemia Furosemide (Lasix) 80 mg PO 1000,1800 [facility] Last Admin: 05/17/19 17:56 Dose: 80 mg Documented by: Glucagon () 1 mg IM .X1 PRN PRN Reason: Hypoglycemia Guaifenesin (Robitussin) 10 ml PO Q4H PRN PRN PRN Reason: COUGH Heparin Sodium (Beef Lung) (Heparin 500 Unit/5 Ml (100/Ml)) 500 unit IV UD PRN PRN Reason: HEPARIN FLUSH Heparin Sodium (Porcine) (Heparin Na) 5,000 unit SC Q12 [facility] Last Admin: 05/17/19 21:18 Dose: 5,000 unit Documented by: Hydralazine HCl (Apresoline Iv) 10 mg IV Q4H PRN PRN PRN Reason: SBP > 160 Insulin Human Lispro (Humalog Kwikpen (Bkc)) 0 unit SC ACHS [facility]; Protocol Last Admin: 05/17/19 21:18 Dose: Not Given Documented by: Labetalol HCl (Trandate) 5 mg IV X1 PRN PRN Reason: SBP > 160 when pulling sheath Lorazepam (Ativan) 1 mg PO Q6H PRN PRN PRN Reason: BACK SPASMS/ANXIETY Last Admin: 05/17/19 21:23 Dose: 1 mg Documented by: Magnesium Hydroxide (Milk Of Magnesia) 30 ml PO DAILY PRN PRN PRN Reason: Constipation Melatonin (Melatonin) 3 mg PO QHS PRN PRN PRN Reason: INSOMNIA Metoclopramide HCl (Reglan) 5 mg IV Q6H PRN PRN PRN Reason: NAUSEA/VOMITING Mirtazapine (Remeron) 7.5 mg PO QHS [facility] Last Admin: 05/17/19 21:18 Dose: 7.5 mg Documented by: Morphine Sulfate () 2 - 4 mg IV Q4H PRN PRN PRN Reason: Pain Score 1-10/10 Nitroglycerin (Nitrostat) 0.4 mg SUBLINGUAL Q5M PRN PRN Reason: CARDIAC/CHEST PAIN Ondansetron HCl (Zofran) 4 mg IV Q8H PRN PRN PRN Reason: NAUSEA/VOMITING Oxycodone HCl (Oxyir) 5 mg PO Q4H PRN PRN PRN Reason: Pain Score 4-5/10 [facility] Admin: 05/17/19 21:18 Dose: 80 mg Documented by: Prochlorperazine Edisylate (Compazine Iv) 5 mg IV Q4H PRN PRN PRN Reason: Breakthrough Nausea/Vomiting Last Admin: 05/16/19 18:45 Dose: 5 mg Documented by: Psyllium Hydrophilic Mucilloid (Metamucil) 1 packet PO DAILY PRN PRN PRN Reason: Constipation Sacubitril/Valsartan (Entresto 24 Mg-26 Mg Tablet) 1 each PO DAILY [facility] Last Admin: 05/17/19 15:01 Dose: Not Given Documented by: Senna/Docusate Sodium (Senokot-S, Nita-Colace) 2 tablet PO BID PRN PRN Reason: Constipation Sodium Chloride () 500 ml IV BOLUS PRN PRN Reason: VASO-VAGAL PROTOCOL Sodium Chloride () 10 - 40 ml IV UD PRN PRN Reason: SALINE FLUSH Throat Lozenges (Cepacol Sore Throat Lozenge) 1 lozenge MUCOUS MEM Q2H PRN PRN PRN Reason: SORE THROAT Ticagrelor (Brilinta) 90 mg PO BID [facility] Last Admin: 05/17/19 21:17 Dose: 90 mg Documented by: STROKE Vital Signs/Narrative: Vital Signs Temp Pulse Resp BP Pulse Ox 05/18/19 06:00 93 21 H 150/73 H 93 05/18/19 05:00 81 16 131/66 H 92 05/18/19 04:00 97.9 F 90 22 H 109/96 H 95 Medical Necessity - Tobacco Use Smoking Status: Never smoker Tobacco Use: Non-smoker Assessment/Plan All Active Problems (Last Updated 05/17/19 @ 15:23 by Mirella Singletary) STEMI (ST elevation myocardial infarction) (Acute) Non-STEMI (non-ST elevated myocardial infarction) (Acute) Unstable angina (Acute) Acute on chronic renal insufficiency (Resolved) Hyperkalemia (Resolved) Left flank pain (Resolved) Problem with dialysis access (Resolved) Uncontrollable nausea and vomiting (Resolved) The patient is a 73 y/o M with CAD s/p PCI x 11, HTN, HLD, Ischemic Cardiomyopathy, PAF, Diabetes mellitus type II, recent 11/2018 NSTEMI w/ PTCA of the stent thrombosis/restenosis of the mid RCA, ESRD ON HD is being admitted with left-sided chest pain with tooth ache radiation to left shoulder left upper extremity while he was working/taking. Patient also had nausea and diaphoresis and started about 1 PM on day of admission and lasted in ED 1. STEMI, posterior lateral as per EKG; EKG showed ST elevation in posterior and lateral leads and T inversion in inferior and lateral leads. Chest x-ray right-sided pleural effusion. Troponin elevated 0.065 and then after heart cath more than 200. Cardiac cath reported as EF 20 to 25% by LV gram. Depressed LV systolic function. Circumflex artery previous stent occluded, proximal RCA in-stent restenosis 25%, mid RCA in-stent restenosis 90%. Patient had PCI with stent put in mid circumflex, mid RCA and proximal RCA. EF 20 to 25%. Severe hypokinesis with depressed LV function. On cardiac medications including aspirin, carvedilol, sacubitril/valsartan and pravastatin. 05/18 telemetry reviewed no significant arrhythmia. Right groin does not show hematoma. 2. CAD: Denies history of PCI in multiple cardiac arteries in 06/09/2017, PCI in 2014 and 2011. 3. Acute on chronic systolic heart failure rate secondary to STEMI: Echo in 10/28/2018 shows EF 45%. As per the cath, EF is 20 to 25%. On furosemide 80 mg twice daily. Patient is on dialysis. 4. Chronic normocytic anemia/AOCD: Admission hemoglobin 10.6, baseline 9-11, stable. CBC ordered. 5. Diabetes mellitus type II: A1c 8.1% in November 2018. Accu-Chek is incision cover with Humalog sliding scale. Repeat A1c 6.3. 6. Hypertension: Blood pressure is running 103/63: Hold antihypertensive medication with holding parameters including Entresto 7. Hyperlipidemia: Continue home statin regimen, FLP LDL 94, HDL 38. 8. PAF: Maintained on Coreg, not anticoagulated. 9. ESRD: HD Thursday, completed prior to ED presentation, Dr. Scott saw the patient. 10. DVT prophylaxis: SCDs, heparin starting 05/17/19 AM. 11. CODE status: Patient, power of defense attorney is her daughter Jojo Hernandez and living will. DNR CC arrest Laboratory Results 05/17/19 07:30: Activated Clotting Time 131 05/17/19 11:02: POC Glucose 150 H 05/17/19 16:36: POC Glucose 123 H 05/17/19 21:16: POC Glucose 111 H 05/18/19 05:00: Sodium 136, Potassium 3.8, Chloride 96 L, Carbon Dioxide 32.0, Anion Gap 8, BUN 16, Creatinine 4.09 H, Estim Creat Clear Calc 14.59, Est GFR (MDRD) Af Amer 18 L, Est GFR (MDRD) Non-Af 15 L, BUN/Creatinine Ratio 3.9 L, Glucose 120 H, Calcium 8.9 05/17/19 05:10: Sodium 134 L, Potassium 6.2 H*, Chloride 97 L, Carbon Dioxide 31.0, Anion Gap 6, BUN 21 H, Creatinine 4.64 H, Estim Creat Clear Calc 12.86, Est GFR (MDRD) Af Amer 16 L, Est GFR (MDRD) Non-Af 13 L, BUN/Creatinine Ratio 4.5 L, Glucose 147 H, Calcium 7.8 L, Total Bilirubin 0.60, AST 701 H, ALT 64 H, Alkaline Phosphatase 82, Total Protein 7.0, Albumin 2.9 L, Globulin 4.1, Albumin/Globulin Ratio 0.7 L, Triglycerides 131, Cholesterol 158, LDL Cholesterol 94, VLDL Cholesterol 26, HDL Cholesterol 38 L 05/17/19 07:30: Activated Clotting Time 131 05/17/19 11:02: POC Glucose 150 H Code Visit Inpatient E&M: 58097 Subs Hosp L3
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
--- NOTE | 2019-05-18 07:40 | NURSING ---
informed of pt's dtr's concerns regarding confusion and safety. No orders at this time.
[2019-05-18 08:36] LABS: Absolute Lymphocyte Count 0.84 X10^3/uL (0.83-4.51); Absolute Neutrophil Count 8.2 X10^3/uL (2.0-7.7); Basophil# 0.03 X10^3/uL; Basophil% 0.3 % (0-1); Eosinophil# 0.22 X10^3/uL; Eosinophils% 2.2 % (0-5); Hematocrit 31.9 % (40-54); Hemoglobin 10.4 g/dL (13.0-16.5); Lymphocyte # 0.84 X10^3/ul (4.0); Lymphocyte % 8.2 % (19-41); Mean Corp Hgb Conc 32.6 g/dL (32-36); Mean Corpuscular Hgb 33.2 pg (27.0-32.0); Mean Corpuscular Volume 101.9 fL (80-94); Mean Platelet Vol. 10.7 fl (6.2-12.0); Monocyte# 0.88 X10^3/uL; Monocyte% 8.6 % (0-10); NRBC Flagged by Analyzer 0 % (0-5); Neutrophil # 8.22 X10^3/uL (2.7-7.7); Neutrophil % 80.3 % (47-70); Platelet Count 228 K/mm3 (150-450); RBC Distribution Width CV 14.1 % (11.6-14.6); RBC Distribution Width SD 52.2 fl (35.1-43.9); Red Blood Count 3.13 M/mm3 (4.6-6.2); White Blood Count 10.2 K/mm3 (4.4-11.0)
[2019-05-18] MEDS: TICAGRELOR 90 MG TABLET PO ×2 (09:35→22:29)
[2019-05-18] MEDS: Aspirin E.C. 81 MG Tablet PO (09:35)
[2019-05-18] MEDS: Carvedilol 6.25 MG Tablet PO ×2 (09:36→22:29)
[2019-05-18] MEDS: Furosemide 80 MG Tablet PO ×2 (09:36→17:36)
[2019-05-18] MEDS: Heparin Injection (Vial) 5,000 UNIT/ML VIAL 5000 UNIT SC ×2 (09:36→22:30)
[2019-05-18] MEDS: SACUBITRIL/VALSARTAN 24/26 MG TABLET 1 EACH PO (09:36)
--- NOTE | 2019-05-18 09:47 | CASEMGMT ---
Social Work: Sana GRADY CM asked this SW to call daughter who is POA, as daughter had called in concerned about patients mental status. TC to daughter Jojo. Jojo states that patient is normally a grouchy davey at home but not mean or belligerent. Jojo is concerned about patient's current behavior while at the hospital and would like the physician to call her to discuss mental status. Jojo states that patient lives alone and is functionally independent with all ADL'S and IADL's. Daughter, Jojo, lives around the corner from patient. This SW assured daughter that message will be given to physician to call her back. TC to ICU. Spoke with YSABEL Cortes. Sophia to pass message to patient's nurse to have physician call daughter to discuss patient's mental status. SW to stay available in the event that additional needs arise. JAYCOB Whitehead
--- NOTE | 2019-05-18 09:50 | CASEMGMT ---
RN CM NOTE: Attempted RN CM assessment. RN CM introduced self and role of RN CM. Pt grumpy when RN CM introduced self and agreeable to talking with this RN CM, but pt then kept falling asleep quickly. Would easily awaken, but then fall asleep again. Unable to complete assessment at this time. RN CM to attempt later when pt more awake. Alexandra SCOTTN RN CM
--- NOTE | 2019-05-18 10:00 | EKG12_ITS ---
Test Reason : AM EKG Blood Pressure : / mmHG Vent. Rate : 070 BPM Atrial Rate : 070 BPM P-R Int : 300 ms QRS Dur : 164 ms QT Int : 474 ms P-R-T Axes : -04 113 190 degrees QTc Int : 511 ms Sinus rhythm with 1st degree A-V block Right bundle branch block T wave abnormality, consider lateral ischemia Abnormal ECG Confirmed by TAMIKA EDEN, LEONCIO ([id number]), book editor JOSELYN MONTGOMERY ([id number]) on 05/25/2019 1:55:56 PM Referred By: Saroj Luna Confirmed By:LEONCIO LUNDBERG MD
--- NOTE | 2019-05-18 10:13 | PN.CARD_ITS ---
Subjectve: The patient can be awake and alert. However if not stimulated he appears to be somewhat somnolent. At other times he is reported as being feisty . He appears to deny ongoing chest discomfort. He believes his breathing has improved overall. Objective: Vital Signs Temp Pulse Resp BP Pulse Ox 97.9 F 93 21 H 150/73 H 93 05/18/19 04:00 05/18/19 06:00 05/18/19 06:00 05/18/19 06:00 05/18/19 06:00 Oxygen Flow Rate (L/min) 2 Oxygen Delivery Method Room Air Weight: 163 lb 12.855 oz Body Mass Index (BMI) 26.9 Finger Stick Blood Glucose 123 Intake and Output for Last 24 Hours 05/16/19 05/17/19 05/18/19 23:59 23:59 23:59 Intake Total 695.0 / 695.0 1060 / 1260 200 / 200 Output Total 0 / 0 2750 / 2950 200 / 200 Balance 695.0 / 695.0 -1690 / -1690 0 / 0 General: Awake, Cooperative, No Acute Distress HEENT: Atraumatic, Normocephalic, PERRL, EOMI, Sclera Non Icteric Oral: Moist Mucosa Neck: Supple, Good ROM, No JVD Lungs: Diminished Nestor Bases Cardiovascular: Regular Rhythm, Normal S1, Normal S2 Abdomen: Bowel Sounds Present, Soft, Non Tender Extremities: No edema 05/18/19 05:00: Sodium 136, Potassium 3.8, Chloride 96 L, Carbon Dioxide 32.0, Anion Gap 8, BUN 16, Creatinine 4.09 H, Est GFR (MDRD) Af Amer 18 L, Est GFR (MDRD) Non-Af 15 L, BUN/Creatinine Ratio 3.9 L, Glucose 120 H, Calcium 8.9 05/18/19 08:24: WBC 10.2, RBC 3.13 L, Hgb 10.4 L, Hct 31.9 L, MCV 101.9 H, MCH 33.2 H, MCHC 32.6, Plt Count 228, MPV 10.7, Immature Gran % (Auto) 0.400, Neut % (Auto) 80.3 H, Lymph % (Auto) 8.2 L, [place] % (Auto) 8.6, Eos % (Auto) 2.2, Baso % (Auto) 0.3, Absolute Neuts (auto) 8.2 H, Nucleated RBC % 0 Rhythm: Sinus rhythm EKG: Sinus rhythm; right bundle branch block pattern; ST and T wave changes- appear to be gradually returning towards baseline; occasional PVCs Medical Necessity - Tobacco Use Smoking Status: Never smoker Tobacco Use: Non-smoker Assessment/Plan 1. Acute ST segment elevation PR The patient has undergone evaluation and care for an acute ST segment elevation PR. This included urgent/emergent diagnostic cardiac catheterization and subsequent PCI as noted. The present time the patient continues to recuperate in the ICU. He will continue to be monitored. He will continue medical management. 2. CAD status post PCI The patient will continue to be monitored. He will continue medical therapy with adjustment as tolerated. 3. Ischemic mediated cardiomyopathy The patient's overall LV systolic function/LVEF appears to have decreased compared to his most recent previous noninvasive study. It had been noted to be decreased in the past and appeared to improve. Hopefully with his recent PCI his overall LV systolic function/LVEF will improve again. He will continue medical management. His LV wall motion systolic function will be followed with echocardiographic studies. 4. Paroxysmal atrial fibrillation The patient's rate and rhythm will be monitored. He will continue medical adjustment as deemed appropriate. 5. Hyperlipidemia The patient will continue medical management. 6. Hypertension The patient will need to continue medical therapy with adjustment as deemed appropriate taken into consideration his renal insufficiency, etc. 7. Diabetes mellitus Patient will continue evaluation care per internal medicine. 8. Chronic renal insufficiency/chronic hemodialysis The patient is going to continue with his scheduled dialysis today. This note was generated using a voice recognition system and there may be incorrect words, spelling or punctuation that were not noted when reviewing the office note prior to saving.
[2019-05-18 10:17] LABS: Hemoglobin A1c 6.4 % (4.2-6.3)
--- NOTE | 2019-05-18 11:02 | CRPHASE1_ITS ---
Patient Communication PHII Cardiac Rehab Discussed with Patient:: Yes Guide to Cardiac Rehab Given to Patient:: Yes - States not doing cadiac rehab Cardiac Rehab Facility Choice List Given to Patient:: Yes - [facility] Choice Program [facility] CR PHII:: Communication Given to CR, Refer to [facility] Respiratory Services Manager:: Saroj Luna Sessions:: 36 sessions - 3 days/wk, 12 weeks Risk Factors/Lifestyle Smoking Status: Never smoker Hx Hypertension: Yes Hx Diabetes Mellitus Type 2: Yes Height: 1.7 m Weight:: 81.7 kg BMI: 28.3 Caffeine: Yes Substance Abuse: No Family History: Family History (Last Reviewed 09/30/18 @ 13:10 by Mirella Singletary) Mother Breast cancer Myocardial infarction CAD (coronary artery disease) Father Colon cancer Hypertension Myocardial infarction Other Family history of hypertension Laboratory Values: Cardiac Rehab Phase I Labs Hemoglobin A1c 6.4 % (4.2-6.3) H 05/18/19 08:24 Triglycerides 131 mg/dL (-199) 05/17/19 05:10 Cholesterol 158 mg/dL (200) 05/17/19 05:10 LDL Cholesterol 94 mg/dL (0-130) 05/17/19 05:10 HDL Cholesterol 38 mg/dL (40-) L 05/17/19 05:10 Issues Affecting Care:: None Knowledge of Condition:: Yes Hospital Course Cardiac Cath Date:: 05/17/19 Medical/Surgical History Diabetes:: Yes Diabetes Type II:: Yes Hypertension:: Yes Dyslipidemia:: Yes Cancer:: Yes Depression:: Yes Discharge/Home/Social Eval Discharge Disposition: Home Cardiac Rehabilitation Info Cardiac Rehabilitation Program Information: Cardiac Rehabilitation is important for patients like you who are recovering from a heart problem. Cardiac rehabilitation programs are recognized as integral to the continued care of the patient with coronary heart disease. The cardiac rehabilitation program is designed to optimize a patient's physical, psychological, and social functioning. Health animal caretaker work in cardiac rehabilitation programs and assist you with getting the treatments you need to get stronger and healthier - like exercise, healthy eating habits, and medications. Cardiac rehabilitation has been show to help people with heart problems live longer and have better life enjoyment than people who do not go to cardiac rehabilitation. Please contact the Cardiac Rehabilitation Program at [facility] at in two weeks if you have not heard from them.
--- NOTE | 2019-05-18 11:06 | CRPH1.INSTRU ---
General Education CAD and cardiac anatomy and function:: Patient communicates acknowledgment - Pateints states not doing cardiac rehab Explanation of diagnoses and procedures:: Patient communicates acknowledgment Sign/Symptoms of CA:: Not instructed Antiplatelet therapy: Not instructed Proper use of NTG-SL: Not instructed Emergency procedures and activation of EMS: Not instructed Compliance of all prescribed medications: Not instructed Smoking Patient Nicotine/Smoking Risk Factors Are:: Never smoked Dyslipidemia Recommendations Include:: Lipid profile not available Overweight/Obesity Patient Overweight/Obesity Risk Factors Are:: Overweight = 26-29 Overweight/Obesity:: Not instructed Hypertension Recommendations Include:: Maintain BP <130/85, BP <130/80 if diabetic, DASH dietary guidelines, Decrease/maintain normal body weight, Moderation of ETOH Hypertension:: Patient communicates acknowledgment Heart Disease Heart Disease Response Code:: Patient communicates acknowledgment Diabetes Diabetes:: Patient communicates acknowledgment Metabolic Syndrome Metabolic Syndrome Response Code:: Patient communicates acknowledgment Sedentary Patient Sedentary Risk Factors Are:: Lack of regular exercise Stress Stress Response Code:: Not instructed
--- NOTE | 2019-05-18 11:24 | PCM.PN.REN ---
Patient Problems: Active and Suspected Problems (Last Updated 05/17/19 @ 15:23 by Mirella Singletary) STEMI (ST elevation myocardial infarction) (Acute) Subjective: No new complaints. Breathing is at baseline. - Physical Exam Vitals/I&O's: Vital Signs Temp Pulse Resp BP Pulse Ox 97.7 F L 81 17 127/64 H 96 05/18/19 07:00 05/18/19 10:00 05/18/19 10:00 05/18/19 10:00 05/18/19 10:00 Oxygen Flow Rate (L/min) 2 Oxygen Delivery Method Nasal Cannula Weight: 81.7 kg Body Mass Index (BMI) 26.9 Finger Stick Blood Glucose 123 Intake and Output for Last 24 Hours 05/16/19 05/17/19 05/18/19 23:59 23:59 23:59 Intake Total 695.0 / 695.0 1060 / 1260 200 / 200 Output Total 0 / 0 2750 / 2950 200 / 200 Balance 695.0 / 695.0 -1690 / -1690 0 / 0 General: Alert, Oriented x3, Cooperative HEENT: Atraumatic, PERRLA, EOMI, Normocephalic Neck: Supple, No JVD, Negative Carotid Bruits Lungs: Clear to auscultation, Normal air movement Cardiovascular: Regular rate, No murmurs Abdomen: Bowel Sounds Present, Soft, Non Tender Extremities: No edema, Capillary Refill Less than 3 Seconds Skin: No rashes, No breakdown Musculoskeletal: No Tenderness to Palpation of Joints or Extremities Neurological: Cranial nerves II-XII grossly intact Psych/Mental Status: Normal Affect, Appropriate Laboratory Results 05/17/19 16:36: POC Glucose 123 H 05/17/19 21:16: POC Glucose 111 H 05/18/19 05:00: Sodium 136, Potassium 3.8, Chloride 96 L, Carbon Dioxide 32.0, Anion Gap 8, BUN 16, Creatinine 4.09 H, Estim Creat Clear Calc 14.59, Est GFR (MDRD) Af Amer 18 L, Est GFR (MDRD) Non-Af 15 L, BUN/Creatinine Ratio 3.9 L, Glucose 120 H, Calcium 8.9 05/18/19 08:24: WBC 10.2, RBC 3.13 L, Hgb 10.4 L, Hct 31.9 L, MCV 101.9 H, MCH 33.2 H, MCHC 32.6, RDW Std Deviation 52.2 H, RDW Coeff of Kirsten 14.1, Plt Count 228, MPV 10.7, Immature Gran % (Auto) 0.400, Neut % (Auto) 80.3 H, Lymph % (Auto) 8.2 L, [place] % (Auto) 8.6, Eos % (Auto) 2.2, Baso % (Auto) 0.3, Absolute Neuts (auto) 8.2 H, Absolute Lymphs (auto) 0.84, Nucleated RBC % 0 05/18/19 08:24: Hemoglobin A1c 6.4 H Current Medications Acetaminophen (Tylenol) 650 mg PO Q6H PRN PRN PRN Reason: Pain Score 1-3/10 Al Hydroxide/Mg Hydroxide (Mylanta Ii) 30 ml PO Q6H PRN PRN PRN Reason: Gastric Burning Albuterol Sulfate (Ventolin Aerosols) 2.5 mg INHALATION Q2H PRN PRN PRN Reason: SOB/Wheezing Aspirin (Ecotrin) 81 mg PO DAILY@0800 [facility] Last Admin: 05/18/19 09:35 Dose: 81 mg Documented by: Atropine Sulfate () 0.5 mg IV UD PRN PRN Reason: HR <50 bpm Carvedilol (Coreg) 6.25 mg PO BID [facility] Last Admin: 05/18/19 09:36 Dose: 6.25 mg Documented by: Dextrose (D50w Syringe) 0 gm IV X1 PRN; Protocol PRN Reason: Hypoglycemia Furosemide (Lasix) 80 mg PO 1000,1800 [facility] Last Admin: 05/18/19 09:36 Dose: 80 mg Documented by: Glucagon () 1 mg IM .X1 PRN PRN Reason: Hypoglycemia Guaifenesin (Robitussin) 10 ml PO Q4H PRN PRN PRN Reason: COUGH Heparin Sodium (Beef Lung) (Heparin 500 Unit/5 Ml (100/Ml)) 500 unit IV UD PRN PRN Reason: HEPARIN FLUSH Heparin Sodium (Porcine) (Heparin Na) 5,000 unit SC Q12 [facility] Last Admin: 05/18/19 09:36 Dose: 5,000 unit Documented by: Hydralazine HCl (Apresoline Iv) 10 mg IV Q4H PRN PRN PRN Reason: SBP > 160 Insulin Human Lispro (Humalog Kwikpen (Bkc)) 0 unit SC ACHS [facility]; Protocol Last Admin: 05/18/19 08:49 Dose: Not Given Documented by: Labetalol HCl (Trandate) 5 mg IV X1 PRN PRN Reason: SBP > 160 when pulling sheath Lorazepam (Ativan) 1 mg PO Q6H PRN PRN PRN Reason: BACK SPASMS/ANXIETY Last Admin: 05/17/19 21:23 Dose: 1 mg Documented by: Magnesium Hydroxide (Milk Of Magnesia) 30 ml PO DAILY PRN PRN PRN Reason: Constipation Melatonin (Melatonin) 3 mg PO QHS PRN PRN PRN Reason: INSOMNIA Metoclopramide HCl (Reglan) 5 mg IV Q6H PRN PRN PRN Reason: NAUSEA/VOMITING Mirtazapine (Remeron) 7.5 mg PO QHS [facility] Last Admin: 05/17/19 21:18 Dose: 7.5 mg Documented by: Morphine Sulfate () 2 - 4 mg IV Q4H PRN PRN PRN Reason: Pain Score 1-10/10 Nitroglycerin (Nitrostat) 0.4 mg SUBLINGUAL Q5M PRN PRN Reason: CARDIAC/CHEST PAIN Ondansetron HCl (Zofran) 4 mg IV Q8H PRN PRN PRN Reason: NAUSEA/VOMITING Oxycodone HCl (Oxyir) 5 mg PO Q4H PRN PRN PRN Reason: Pain Score 4-5/10 Pravastatin Sodium (Pravachol) 80 mg PO QHS [facility] Last Admin: 05/17/19 21:18 Dose: 80 mg Documented by: Prochlorperazine Edisylate (Compazine Iv) 5 mg IV Q4H PRN PRN PRN Reason: Breakthrough Nausea/Vomiting Last Admin: 05/16/19 18:45 Dose: 5 mg Documented by: Psyllium Hydrophilic Mucilloid (Metamucil) 1 packet PO DAILY PRN PRN PRN Reason: Constipation Sacubitril/Valsartan (Entresto 24 Mg-26 Mg Tablet) 1 each PO DAILY [facility] Last Admin: 05/18/19 09:36 Dose: 1 each Documented by: Senna/Docusate Sodium (Senokot-S, Nita-Colace) 2 tablet PO BID PRN PRN Reason: Constipation Sodium Chloride () 500 ml IV BOLUS PRN PRN Reason: VASO-VAGAL PROTOCOL Sodium Chloride () 10 - 40 ml IV UD PRN PRN Reason: SALINE FLUSH Throat Lozenges (Cepacol Sore Throat Lozenge) 1 lozenge MUCOUS MEM Q2H PRN PRN PRN Reason: SORE THROAT Ticagrelor (Brilinta) 90 mg PO BID [facility] Last Admin: 05/18/19 09:35 Dose: 90 mg Documented by: Medical Necessity - Tobacco Use Smoking Status: Never smoker Tobacco Use: Non-smoker Assessment/Plan All Active Problems (Last Updated 05/17/19 @ 15:23 by Mirella Singletary) STEMI (ST elevation myocardial infarction) (Acute) Non-STEMI (non-ST elevated myocardial infarction) (Acute) Unstable angina (Acute) Acute on chronic renal insufficiency (Resolved) Hyperkalemia (Resolved) Left flank pain (Resolved) Problem with dialysis access (Resolved) Uncontrollable nausea and vomiting (Resolved) End-stage renal disease. Dialysis arranged for today. Usual schedule is Thursday, Thursday, Thursday. Continue dialysis as per schedule Hyperkalemia. imProved with dialysis Dyspnea. Clinically better. Able to remove about 2.6 L yesterday. Lungs are clear on exam today. We will try for about 1 to 2 L today.
[2019-05-18 11:46] LABS: Bedside Glucose 122 mg/dL (70-110)
--- NOTE | 2019-05-18 15:20 | CASEMGMT ---
RN CM WEIGH BOSS CM to room to meet with patient for initial transition planning/care coordination assessment. RN MORE introduced self and role at [facility]. Pt resting in bed w/eyes closed. Did open eyes and agree to assessment. Pt states is still tired but was able to stay awake during assessment and able to answer all questions although did mumble at times and slow to answer at times. Care providers, pharmacy, and demographics verified/updated at this time. PCP: Dr Medina Specialists: Sales Support Associate in [place]. Dr Dan--cardiology. Goes to Dialysis @ [facility]. Preferred Pharmacy: [facility] Retail [facility] Prescription Benefit: Yes Living Will/HPOA: LW on file @ [facility]. No Durable Healthcare POA found. LNOK: Has 2 daughters. One is Jojo Hernandez. Pt states his other daughter doesn't exist. Living Arrangements: Lives alone in one-story home w/no stairs. States was independent @ home prior to admission and does his own meals/grocery shopping. Transportation: Pt states drives self and states no transportation concerns at this time. States he thinks Jojo will be able to take him home @ d/c DME: States has the following DME: shower chair, grab bars, glucometer. Does not have home O2. Pt states no need for further DME at this time. HHC/SNF: Denies hx of either. Pt wishes to return home and states has no concerns with going home at time of discharge. Discussed HHC and OP therapy. Pt states he may be interested in OP therapy but he is not sure. CM to follow for home oxygen needs and any further discharge planning/needs. Pt voices no further concerns/needs at this time. Advised pt to ask for CM if any further questions/concerns/needs arise. Voices understanding. PLAN: Anticipate pt will be able to return home @ d/c. CM to follow. May need script for OP therapy. Alexandra VENEGAS RN, CM
[2019-05-18 17:31] LABS: Bedside Glucose 142 mg/dL (70-110)
[2019-05-18] MEDS: LORazepam 1 MG Tablet PO (17:36)
[2019-05-18 20:37] LABS: Ammonia < 10.0 umol/L (11-32)
[2019-05-18] MEDS: Mirtazapine 15 MG Tablet 7.5 MG PO (22:28)
[2019-05-18] MEDS: Pravastatin 80 MG Tablet PO (22:28)
[2019-05-18] MEDS: MELATONIN 3 MG TABLET PO (23:00)
[2019-05-18] MEDS: oxyCODONE 5 MG Tablet PO (23:01)
[2019-05-18 23:10] LABS: Bedside Glucose 106 mg/dL (70-110)
--- NOTE | 2019-05-18 23:17 | DIALYSIS ---
HD x2.5 hours completed, tolerated well, UF 1500mL, very pleasantly confused, forgetful, moves arms frequently, sat at patient's left side entire tx monitoring needles, kept trying to get out of bed to go upstairs to bed, easily redirected, held his hand, needed almost constant redirection, accessed via LFA AVF using 16G needles, needles pulled post tx, stasis achieved after 8mins each site, report to YSABEL Oneil
[2019-05-19] VITALS (12 sets, daily range): BP systolic 76–129; BP diastolic 46–67; PULSE 69–84; RESP 15–20; TEMP 36.3–36.7; O2SAT 90–98
[2019-05-19 05:10] LABS: Absolute Lymphocyte Count 1.05 X10^3/uL (0.83-4.51); Absolute Neutrophil Count 8.3 X10^3/uL (2.0-7.7); Basophil# 0.04 X10^3/uL; Basophil% 0.4 % (0-1); Eosinophil# 0.25 X10^3/uL; Eosinophils% 2.4 % (0-5); Hematocrit 36.1 % (40-54); Hemoglobin 11.6 g/dL (13.0-16.5); Lymphocyte # 1.05 X10^3/ul (4.0); Lymphocyte % 9.9 % (19-41); Mean Corp Hgb Conc 32.1 g/dL (32-36); Mean Corpuscular Hgb 32.6 pg (27.0-32.0); Mean Corpuscular Volume 101.4 fL (80-94); Mean Platelet Vol. 10.7 fl (6.2-12.0); Monocyte# 0.91 X10^3/uL; Monocyte% 8.6 % (0-10); NRBC Flagged by Analyzer 0 % (0-5); Neutrophil % 78.2 % (47-70); Platelet Count 272 K/mm3 (150-450); RBC Distribution Width CV 13.7 % (11.6-14.6); RBC Distribution Width SD 50.9 fl (35.1-43.9); Red Blood Count 3.56 M/mm3 (4.6-6.2); White Blood Count 10.6 K/mm3 (4.4-11.0)
[2019-05-19 05:26] LABS: Anion Gap 8 (5-15); BUN 15 mg/dL (7-18); BUN/Creat Ratio 3.9 RATIO (10-20); Calcium,Total 8.8 mg/dL (8.5-10.1); Chloride 95 mmol/L (98-107); Creatinine, Serum 3.88 mg/dL (0.70-1.30); EST Glomerular Filtration Rate 16 mL/min (>60); Est Glom Filt Rate - Afr Amer 20 mL/min (>60); Estimated Creatinine Clearance 14.84 ml/min; Glucose 123 mg/dL (74-106); Sodium Level 134 mmol/L (136-145)
--- NOTE | 2019-05-19 08:02 | PN.CARD_ITS ---
<Sean Ferguson - Last Filed: 05/19/19 11:24> Subjectve: Patient seen and evaluated. He denies any concerns over night. He denies any chest pain or shortness of breath this morning. He appears to be somnolent, but does answer all questions appropriately. Objective: Vital Signs Temp Pulse Resp BP Pulse Ox 97.9 F 74 18 116/55 L 93 05/19/19 05:00 05/19/19 05:00 05/19/19 05:00 05/19/19 05:00 05/19/19 05:00 Oxygen Flow Rate (L/min) 2 Oxygen Delivery Method Room Air Weight: 158 lb 8.198 oz Body Mass Index (BMI) 26.9 Finger Stick Blood Glucose 123 Intake and Output for Last 24 Hours 05/17/19 05/18/19 05/19/19 23:59 23:59 23:59 Intake Total 1060 / 1260 580 / 580 175 / 175 Output Total 2750 / 2950 1750 / 1750 75 / 75 Balance -1690 / -1690 -1170 / -1170 100 / 100 General: Healthy Appearing, Awake, Alert, Oriented x 3, Cooperative, Lethargic HEENT: Atraumatic Oral: Moist Mucosa Neck: No JVD Lungs: Clear to auscultation Cardiovascular: Regular Rhythm, Normal S1, Normal S2, No Murmurs, No Rubs, No Gallops Vascular: No Carotid Bruits Abdomen: Bowel Sounds Present, Soft Extremities: No Cyanosis, No Clubbing, No edema, Normal Capillary Refill Musculoskeletal: No Erythema Skin: No Rashes, No Breakdown Neurological: No Focal Motor or Sensory Deficit Psych/Mental Status: Appropriate 05/18/19 08:24: WBC 10.2, RBC 3.13 L, Hgb 10.4 L, Hct 31.9 L, MCV 101.9 H, MCH 33.2 H, MCHC 32.6, Plt Count 228, MPV 10.7, Immature Gran % (Auto) 0.400, Neut % (Auto) 80.3 H, Lymph % (Auto) 8.2 L, [place] % (Auto) 8.6, Eos % (Auto) 2.2, Baso % (Auto) 0.3, Absolute Neuts (auto) 8.2 H, Nucleated RBC % 0 05/18/19 08:24: Hemoglobin A1c 6.4 H 02/27/20 05:00: WBC 10.6, RBC 3.56 L, Hgb 11.6 L, Hct 36.1 L, MCV 101.4 H, MCH 32.6 H, MCHC 32.1, Plt Count 272, MPV 10.7, Immature Gran % (Auto) 0.500, Neut % (Auto) 78.2 H, Lymph % (Auto) 9.9 L, [place] % (Auto) 8.6, Eos % (Auto) 2.4, Baso % (Auto) 0.4, Absolute Neuts (auto) 8.3 H, Nucleated RBC % 0 05/19/19 05:00: Sodium 134 L, Potassium 4.0, Chloride 95 L, Carbon Dioxide 31.0, Anion Gap 8, BUN 15, Creatinine 3.88 H, Est GFR (MDRD) Af Amer 20 L, Est GFR (MDRD) Non-Af 16 L, BUN/Creatinine Ratio 3.9 L, Glucose 123 H, Calcium 8.8 Rhythm: EKG: ECHO: 05/18/2019 Interpretation Summary Mild concentric left ventricular hypertrophy. Moderately dilated left ventricle. The estimated ejection fraction is 25 %. Stage 1 diastolic dysfunction. Mild-Moderate (1-2+) posteriorly directed mitral valve insufficiency. Mild (1+) tricuspid valve insufficiency. Right ventricular systolic pressure estimated to be 40 mmHg. Mild pulmonary hypertension. Compared to echo results dated 10/28/2018 LV function has deteriorated from 45% to 25%, unable to calculate RVSP at that time. Stress Test: Cardiac Cath: 05/16/2019 CONCLUSIONS Global LV systolic dysfunction- Severe LVEF: by LV gram 20-25 % Depressed Left Ventricular systolic function - Severe Elevated Left Ventricular End Diastolic Pressure Double vessel CAD of the LCX and RCA Non obstructive coronary arteries Successful PTCA/HASMUKH emergent heparin/Integrilin bolus assisted PCI to mid LCX with a 2.5 x 16 Promus Synergy, post dilated with a 3.0 x 8 NC balloon using double wire technique; 100%-->0%, no dissection. Successful PTCA/HASMUKH to mid RCA with a 2.5 x 10 Angiosculpt, followed by a 2.5 x 14 Resolute, post dilated with a 3.0 x 8 NC baloon; 90%-->0%, no dissection. Successful PTCA/HASMUKH PCI with 2.5 x 10 Angiosculpt to proximal RCA, followed with a 3.0 x 15 Resolute HASMUKH, post dilated throughout with a 3.0 x 8 NC Balloon; 75%-->0%, no dissection. RECOMMENDATIONS Referred for immediate PCI Highly recommend quitting all tobacco products Follow up with primary ceramic capacitor processor Risk factor modification ASA Indefinitley Plavix for at least 12 months Routine post interventional care Refer for Outpatient Cardiac Rehab Manual sheath removal per protocol Follow up with Dr. Dan Manual sheath removal once ACT<150; unable to use IABP due to extreme aorto- iliac tortuosity and access in R profunda. asa/brilinta for life. 2D echo in am. d/w [facility] Cole and Alvarez. It appears STEMI delay was due to ER attending to multiple critically ill people simultaneously. CORONARY ANGIOGRAPHY DOMINANCE: Co- Dominant LEFT HEART ASSESSMENT Left Ventricular Ejection Fraction: by LV Gram 20-25 % Depressed Left Ventricular systolic function LVEDP: 25 mmHg Elevated Left Ventricular End Diastolic Pressure Global Hypokinesis - Severe LEFT MAIN: Non-obstructive LEFT ANTERIOR DESCENDING ARTERY: PROX LAD: Previously placed stent is patent MID LAD: Mild luminal irregularities less than 30% CIRCUMFLEX ARTERY: MID CIRC: Previously placed stent is occluded RIGHT CORONARY ARTERY: PROX RCA: Instent restenosis 75 % MID RCA: Instent restenosis 90 % PCI: CT Surgery: Holter monitor: EPS: PPM: CXR: Chest CT Scan: Medical Necessity - Tobacco Use Smoking Status: Never smoker Tobacco Use: Non-smoker Assessment/Plan 1. Acute ST segment elevation [place] The patient has undergone evaluation and care for an acute ST segment elevation [place]. This included urgent/emergent diagnostic cardiac catheterization and subsequent PCI as noted. The present time the patient continues to recuperate in the ICU. He states feeling well. He denies any symptoms of concern. He will continue to be monitored. He will continue medical management. 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 2. CAD status post PCI The patient will continue to be monitored. He will continue medical therapy with adjustment as tolerated. 3. Ischemic mediated cardiomyopathy The patient's overall LV systolic function/LVEF appears to have decreased compared to his most recent previous noninvasive study. It had been noted to be decreased in the past and appeared to improve. Hopefully with his recent PCI his overall LV systolic function/LVEF will improve again on an outpatient basis. At this time, he is currently on Coreg 6.25 mg p.o. twice daily and Entresto 24?26 p.o. daily. It is unclear at this time why daily versus twice daily. It appears after discharge from hospital in October 2018 he was on twice daily. When discharged from hospital in November 2018 he was on p.o. daily. Presumably this was changed due to hypotension or chronic kidney disease. His Entresto will be advanced to 24-26 mg p.o. twice daily. Patient will stay at least 1 more night to evaluate rhythm and ensure safety before discharge. 4. Paroxysmal atrial fibrillation The patient's rate and rhythm will be monitored. He did have a short run of VT for approximately 14 beats per evening. He was unable to correlate with his symptoms. He will begin amiodarone 200 mg 3 times daily for 1 week followed by amiodarone 200 mg p.o. twice daily for 200 weeks followed by amiodarone 200 mg p.o. daily. 5. Hyperlipidemia The patient will continue medical management. 6. Hypertension The patient will need to continue medical therapy with adjustment as deemed appropriate taken into consideration his renal insufficiency, etc. 7. Diabetes mellitus Patient will continue evaluation care per internal medicine. 8. Chronic renal insufficiency/chronic hemodialysis He completed dialysis yesterday without major incident. Patient's case was discussed with Dr. Dan, who will also personally evaluate patient. Please see his dictation for further input and recommendation. This note was generated using a voice recognition system and there may be incorrect words, spelling or punctuation that were not noted when reviewing the office note prior to saving. <Juan aDn - Last Filed: 05/19/19 19:02> Objective: Vital Signs Temp Pulse Resp BP Pulse Ox 97.3 F L 78 18 100/65 96 05/19/19 16:40 05/19/19 16:40 05/19/19 16:40 05/19/19 16:40 05/19/19 16:40 Oxygen Flow Rate (L/min) 2 Oxygen Delivery Method Room Air Weight: 158 lb 8.198 oz Body Mass Index (BMI) 26.9 Finger Stick Blood Glucose 123 Intake and Output for Last 24 Hours 05/17/19 05/18/19 05/19/19 23:59 23:59 23:59 Intake Total 1060 / 1260 580 / 580 915 / 915 Output Total 2750 / 2950 1750 / 1750 75 / 75 Balance -1690 / -1690 -1170 / -1170 840 / 840 05/19/19 05:00: WBC 10.6, RBC 3.56 L, Hgb 11.6 L, Hct 36.1 L, MCV 101.4 H, MCH 32.6 H, MCHC 32.1, Plt Count 272, MPV 10.7, Immature Gran % (Auto) 0.500, Neut % (Auto) 78.2 H, Lymph % (Auto) 9.9 L, [place] % (Auto) 8.6, Eos % (Auto) 2.4, Baso % (Auto) 0.4, Absolute Neuts (auto) 8.3 H, Nucleated RBC % 0 05/19/19 05:00: Sodium 134 L, Potassium 4.0, Chloride 95 L, Carbon Dioxide 31.0, Anion Gap 8, BUN 15, Creatinine 3.88 H, Est GFR (MDRD) Af Amer 20 L, Est GFR (MDRD) Non-Af 16 L, BUN/Creatinine Ratio 3.9 L, Glucose 123 H, Calcium 8.8 05/19/19 05:00: Phosphorus 3.8, Magnesium 2.2 Rhythm: EKG: ECHO: Stress Test: Cardiac Cath: PCI: CT Surgery: Holter monitor: EPS: PPM: CXR: Chest CT Scan: Assessment/Plan Addendum: Date: 05-19-2019 The patient was independently evaluated/examined. The patient appears to be resting comfortably at the moment. He has no new acute complaints. The patient was noted to have transient hypotension earlier this day. He appears to be responding to IV fluid. He is being followed for any evidence of fluid overload at the same time. His cardiac rhythm was noted to have sinus rhythm with an episode of nonsusta ined wide-complex tachycardia concerning for nonsustained VT. On examination his lungs appear to be relatively clear at this time. His cardiac rhythm appears to be regular at this time with a normal S1 and S2. At the moment he will continue to be monitored. He is continuing medical therapy. Based upon his cardiac dysrhythmia, which may be a reperfusion arrhythmia, although it may be secondary to his underlying recent ischemic mediated event and his diminished LV systolic function, he has been placed on additional medical therapy with oral antiarrhythmic therapy with amiodarone. Over time the patient will continue medical management. He will need future follow-up of his transthoracic echocardiogram to monitor his left ventricular wall motion systolic function. Upon his clinical course and findings he may need to be considered for future ICD therapy-unless he declines. The above was discussed and reviewed with Sean Ferguson CNP.
--- NOTE | 2019-05-19 08:30 | DCINST_ITS ---
- Discharge Diagnoses Current Active Problems: Current Active and Chronic Problems (Last Updated 05/17/19 @ 15:23 by Mirella Singletary) STEMI (ST elevation myocardial infarction) (Acute) You will use the following diet at home:: Calorie/Carbohydrate Controlled (specify 1200, 1400, etc), Cardiac Your food should be the consistency of: Regular Discharge Activity: May Not Drive Weight Bearing Status: Weight bearing as tolerated Call your doctor if you observe: Fever of 101 or Higher, Coldness, Increased Pain, Numbness or Tingling, Inability to urinate, Inability to have a bowel movement, Shortness of breath, Dizziness, Fainting spells, Swelling in the ankles, Chest pain, Prolonged hiccoughing, Increased palpitations (irregular heartbeat), Calf discomfort, Uncontrolled pain Additional Instructions: Avoid pushing, lifting or doing heavy work for 1 week Allergies/Adverse Reactions: Allergies codeine Allergy (Verified 05/16/19 15:05) Itching Medications to take at Discharge linagliptin 5 mg tablet 5 mg PO QHS 09/30/18 pravastatin 80 mg tablet 80 mg PO DAILY #30 tab 09/30/18 carvedilol 6.25 mg tablet 6.25 mg PO BID #60 tab 11/12/18 Furosemide [Lasix] 80 mg PO BID 11/30/18 Sacubitril/Valsartan 24/26 mg [Entresto 24 mg-26 mg Tablet] 1 tab PO DAILY 11/30/18 Mirtazapine [Remeron] 7.5 mg PO QHS #30 tab 12/02/18 Aspirin [Low Dose Aspirin EC] 81 mg PO DAILY #30 05/19/19 Nitroglycerin (INPATIENT USE) [Nitrostat] 0.4 mg SUBLINGUAL Q5M PRN #30 tab.subl 05/19/19 Ticagrelor [Brilinta] 90 mg PO BID #60 tab 05/19/19 The following prescriptions were given: Ticagrelor [Brilinta] 90 mg PO BID #60 tab Transmission Status: Pending to [facility] Aspirin [Low Dose Aspirin EC] 81 mg PO DAILY #30 Nitroglycerin (INPATIENT USE) [Nitrostat] 0.4 mg SUBLINGUAL Q5M PRN #30 tab.subl PRN Reason: Cardiac/Chest Pain Transmission Status: Pending to [facility] Primary Care Physician: Sean Medina MD [Primary Care Provider] - Please follow up with your Primary Care Physician in: In 1 to 2 weeks Test Results: Test results from this visit will be discussed in further detail at your follow- up appointment, if applicable. Please Follow Up With: Sean Ferguson NP-C When: 06/03/19
--- NOTE | 2019-05-19 08:32 | PCM.DC.SUM ---
Discharge Date and Diagnosis - Problem List Patient Problems: Active and Suspected Problems (Last Updated 05/17/19 @ 15:23 by Mirella Singletary) STEMI (ST elevation myocardial infarction) (Acute) Date of Admission: 05/16/19 Date of Discharge: 05/19/19 - Primary Discharge Diagnosis Active and Suspected Problems (Last Updated 05/17/19 @ 15:23 by Mirella Singletary) STEMI (ST elevation myocardial infarction) (Acute) - Secondary Discharge Diagnosis Chronic Problems (Last Updated 05/17/19 @ 15:23 by Mirella Singletary) Non compliance w medication regimen (Chronic) Depression (Chronic) Presence of stent in coronary artery (Chronic ~05/16/19) thrombectomy with PTCA with HASMUKH to proximal, mid and distal RCA 03/03; PTCA with stenting to mid & distal RCA 07/05, PTCA of proximal LAD 07/05; Successful PTCA/HASMUKH of the of proxima RCA in stent restenosis, utilizing a 2.0 x 12 Angiosculpt, followed by a 3.0 x 33 Elunira HASMUKH; 85%-->0%, no dissection.Successful PTCA/HASMUKH of the mid LPL branch of the LCX with a 3.0 x 16 Promus Synergy; 75%-->0%, no dissection; Successful PTCA/HASMUKH of the mid LCX with a 2.75 x 16 Promus Synergy; 75%-->0%, no dissection. No PCI of smal OM branch perfomed due to small vessel disease. 05/20/18; Successful PTCA/HASMUKH proximal LCX with a 3.0 x 16 Promus Synergy, 85%-->0%, no dissection. Successful PTCA/HASMUKH mid RCA ISR with a 2.5 x 10 Angiosculpt, followed with a 3.0 x 38 Promus Synergy, post dilated with a 3.0 and 3.5 x 12 NC balloon; 85%-->0%, no dissection. 10/28/18; Successful PTCA of stent thrombosis/restenosis in mid RCA. per cath 12/01/18 Successful PTCA/HASMUKH emergent heparin/Integrilin bolus assisted PCI to mid LCX with a 2.5 x 16 Promus Synergy, post dilated with a 3.0 x 8 NC balloon using double wire technique; 100%-->0%, no dissection. Successful PTCA/HASMUKH to mid RCA with a 2.5 x 10 Angiosculpt, followed by a 2.5 x 14 Resolute, post dilated with a 3.0 x 8 NC baloon; 90%-->0%, no dissection. Successful PTCA/HASMUKH PCI with 2.5 x 10 Angiosculpt to proximal RCA, followed with a 3.0 x 15 Resolute HASMUKH, post dilated throughout with a 3.0 x 8 NC Balloon; 75%-->0%, no dissection. 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 (Chronic) Antihyperlipidemic Family history of hypertension (Chronic) Other secondary pulmonary hypertension (Chronic) Subendocardial ischemia (Chronic) Ischemic cardiomyopathy (Chronic) Nonrheumatic mitral valve regurgitation (Chronic) Rheumatic tricuspid insufficiency (Chronic) Paroxysmal atrial fibrillation (Chronic) Atherosclerotic heart disease of [place] coronary artery without angina pectoris (Chronic) PTCA/HASMUKH to proximal RCA, mid LPL branch of the LCx, in mid LCx in April 2017; angioplasty and PCI to mid and distal RCA in 2014; thrombectomy and PCI to proximal, mid, and distal RCA in 2011; Type II diabetes mellitus (Chronic) Hyperlipidemia associated with type 2 diabetes mellitus (Chronic) HLD (hyperlipidemia) (Chronic) Hospital Course and Treatment Operations: None Summary of Care Provided: The patient is a 73 year old M [] Patient Problems: Active and Suspected Problems (Last Updated 05/17/19 @ 15:23 by Mirella Singletary) STEMI (ST elevation myocardial infarction) (Acute) - Physical Exam Vitals/I&O's: Vital Signs Temp Pulse Resp BP Pulse Ox 97.9 F 74 18 116/55 L 93 05/19/19 05:00 05/19/19 05:00 05/19/19 05:00 05/19/19 05:00 05/19/19 05:00 Oxygen Flow Rate (L/min) 2 Oxygen Delivery Method Room Air Weight: 158 lb 8.198 oz Body Mass Index (BMI) 26.9 Finger Stick Blood Glucose 123 Intake and Output for Last 24 Hours 05/17/19 05/18/19 05/19/19 23:59 23:59 23:59 Intake Total 1060 / 1260 580 / 580 175 / 175 Output Total 2750 / 2950 1750 / 1750 75 / 75 Balance -1690 / -1690 -1170 / -1170 100 / 100 Laboratory Results 05/18/19 08:24: WBC 10.2, RBC 3.13 L, Hgb 10.4 L, Hct 31.9 L, MCV 101.9 H, MCH 33.2 H, MCHC 32.6, RDW Std Deviation 52.2 H, RDW Coeff of Kirsten 14.1, Plt Count 228, MPV 10.7, Immature Gran % (Auto) 0.400, Neut % (Auto) 80.3 H, Lymph % (Auto) 8.2 L, [place] % (Auto) 8.6, Eos % (Auto) 2.2, Baso % (Auto) 0.3, Absolute Neuts (auto) 8.2 H, Absolute Lymphs (auto) 0.84, Nucleated RBC % 0 05/18/19 08:24: Hemoglobin A1c 6.4 H 05/18/19 11:38: POC Glucose 122 H 05/18/19 17:21: POC Glucose 142 H 05/18/19 19:35: Folate 6.40, TSH 1.20 05/18/19 19:35: Vitamin B12 Pending 05/18/19 19:35: Ammonia < 10.0 L 05/18/19 22:34: POC Glucose 106 05/19/19 05:00: WBC 10.6, RBC 3.56 L, Hgb 11.6 L, Hct 36.1 L, MCV 101.4 H, MCH 32.6 H, MCHC 32.1, RDW Std Deviation 50.9 H, RDW Coeff of Kirsten 13.7, Plt Count 272, MPV 10.7, Immature Gran % (Auto) 0.500, Neut % (Auto) 78.2 H, Lymph % (Auto) 9.9 L, [place] % (Auto) 8.6, Eos % (Auto) 2.4, Baso % (Auto) 0.4, Absolute Neuts (auto) 8.3 H, Absolute Lymphs (auto) 1.05, Nucleated RBC % 0 05/19/19 05:00: Sodium 134 L, Potassium 4.0, Chloride 95 L, Carbon Dioxide 31.0, Anion Gap 8, BUN 15, Creatinine 3.88 H, Estim Creat Clear Calc 14.84, Est GFR (MDRD) Af Amer 20 L, Est GFR (MDRD) Non-Af 16 L, BUN/Creatinine Ratio 3.9 L, Glucose 123 H, Calcium 8.8 Current Medications Acetaminophen (Tylenol) 650 mg PO Q6H PRN PRN PRN Reason: Pain Score 1-3/10 Al Hydroxide/Mg Hydroxide (Mylanta Ii) 30 ml PO Q6H PRN PRN PRN Reason: Gastric Burning Albuterol Sulfate (Ventolin Aerosols) 2.5 mg INHALATION Q2H PRN PRN PRN Reason: SOB/Wheezing Aspirin (Ecotrin) 81 mg PO DAILY@0800 [facility] Last Admin: 05/18/19 09:35 Dose: 81 mg Documented by: Atropine Sulfate () 0.5 mg IV UD PRN PRN Reason: HR <50 bpm Carvedilol (Coreg) 6.25 mg PO BID [facility] Last Admin: 05/18/19 22:29 Dose: 6.25 mg Documented by: Dextrose (D50w Syringe) 0 gm IV X1 PRN; Protocol PRN Reason: Hypoglycemia Furosemide (Lasix) 80 mg PO 1000,1800 [facility] Last Admin: 05/18/19 17:36 Dose: 80 mg Documented by: Glucagon () 1 mg IM .X1 PRN PRN Reason: Hypoglycemia Guaifenesin (Robitussin) 10 ml PO Q4H PRN PRN PRN Reason: COUGH Heparin Sodium (Beef Lung) (Heparin 500 Unit/5 Ml (100/Ml)) 500 unit IV UD PRN PRN Reason: HEPARIN FLUSH Heparin Sodium (Porcine) (Heparin Na) 5,000 unit SC Q12 [facility] Last Admin: 05/18/19 22:30 Dose: 5,000 unit Documented by: Hydralazine HCl (Apresoline Iv) 10 mg IV Q4H PRN PRN PRN Reason: SBP > 160 Insulin Human Lispro (Humalog Kwikpen (Bkc)) 0 unit SC ACHS [facility]; Protocol Last Admin: 05/18/19 22:36 Dose: Not Given Documented by: Labetalol HCl (Trandate) 5 mg IV X1 PRN PRN Reason: SBP > 160 when pulling sheath Lorazepam (Ativan) 1 mg PO Q6H PRN PRN PRN Reason: BACK SPASMS/ANXIETY Last Admin: 05/18/19 17:36 Dose: 1 mg Documented by: Magnesium Hydroxide (Milk Of Magnesia) 30 ml PO DAILY PRN PRN PRN Reason: Constipation Melatonin (Melatonin) 3 mg PO QHS PRN PRN PRN Reason: INSOMNIA Last Admin: 05/18/19 23:00 Dose: 3 mg Documented by: Metoclopramide HCl (Reglan) 5 mg IV Q6H PRN PRN PRN Reason: NAUSEA/VOMITING Mirtazapine (Remeron) 7.5 mg PO QHS [facility] Last Admin: 05/18/19 22:28 Dose: 7.5 mg Documented by: Morphine Sulfate () 2 - 4 mg IV Q4H PRN PRN PRN Reason: Pain Score 1-10/10 Nitroglycerin (Nitrostat) 0.4 mg SUBLINGUAL Q5M PRN PRN Reason: CARDIAC/CHEST PAIN Ondansetron HCl (Zofran) 4 mg IV Q8H PRN PRN PRN Reason: NAUSEA/VOMITING Oxycodone HCl (Oxyir) 5 mg PO Q4H PRN PRN PRN Reason: Pain Score 4-5/10 Last Admin: 05/18/19 23:01 Dose: 5 mg Documented by: Pravastatin Sodium (Pravachol) 80 mg PO QHS [facility] Last Admin: 05/18/19 22:28 Dose: 80 mg Documented by: Prochlorperazine Edisylate (Compazine Iv) 5 mg IV Q4H PRN PRN PRN Reason: Breakthrough Nausea/Vomiting Last Admin: 05/16/19 18:45 Dose: 5 mg Documented by: Psyllium Hydrophilic Mucilloid (Metamucil) 1 packet PO DAILY PRN PRN PRN Reason: Constipation Sacubitril/Valsartan (Entresto 24 Mg-26 Mg Tablet) 1 each PO DAILY [facility] Last Admin: 05/18/19 09:36 Dose: 1 each Documented by: Senna/Docusate Sodium (Senokot-S, Nita-Colace) 2 tablet PO BID PRN PRN Reason: Constipation Sodium Chloride () 500 ml IV BOLUS PRN PRN Reason: VASO-VAGAL PROTOCOL Sodium Chloride () 10 - 40 ml IV UD PRN PRN Reason: SALINE FLUSH Throat Lozenges (Cepacol Sore Throat Lozenge) 1 lozenge MUCOUS MEM Q2H PRN PRN PRN Reason: SORE THROAT Ticagrelor (Brilinta) 90 mg PO BID [facility] Last Admin: 05/18/19 22:29 Dose: 90 mg Documented by: Discharge Activity: May Not Drive Weight Bearing Status: Weight bearing as tolerated Call your doctor if you observe: Fever of 101 or Higher, Coldness, Increased Pain, Numbness or Tingling, Inability to urinate, Inability to have a bowel movement, Shortness of breath, Dizziness, Fainting spells, Swelling in the ankles, Chest pain, Prolonged hiccoughing, Increased palpitations (irregular heartbeat), Calf discomfort, Uncontrolled pain Home Medications: Medications to take at Discharge linagliptin 5 mg tablet 5 mg PO QHS 09/30/18 pravastatin 80 mg tablet 80 mg PO DAILY #30 tab 09/30/18 carvedilol 6.25 mg tablet 6.25 mg PO BID #60 tab 11/12/18 Furosemide [Lasix] 80 mg PO BID 11/30/18 Sacubitril/Valsartan 24/26 mg [Entresto 24 mg-26 mg Tablet] 1 tab PO DAILY 11/30/18 Mirtazapine [Remeron] 7.5 mg PO QHS #30 tab 12/02/18 Aspirin [Low Dose Aspirin EC] 81 mg PO DAILY #30 05/19/19 Nitroglycerin (INPATIENT USE) [Nitrostat] 0.4 mg SUBLINGUAL Q5M PRN #30 tab.subl 05/19/19 Ticagrelor [Brilinta] 90 mg PO BID #60 tab 05/19/19 Following Prescrptions Were Given to Patient: Ticagrelor [Brilinta] 90 mg PO BID #60 tab Transmission Status: Pending to [facility] Aspirin [Low Dose Aspirin EC] 81 mg PO DAILY #30 Nitroglycerin (INPATIENT USE) [Nitrostat] 0.4 mg SUBLINGUAL Q5M PRN #30 tab.subl PRN Reason: Cardiac/Chest Pain Transmission Status: Pending to [facility] Primary Care Physician: Sean Medina MD [Primary Care Provider] - Please follow up with your Primary Care Physician in: In 1 to 2 weeks Please Follow Up With: Sean Ferguson NP-C When: 06/03/19 Medical Necessity - Tobacco Use Smoking Status: Never smoker Tobacco Use: Non-smoker
[2019-05-19 08:35] LABS: Vitamin B12 469 pg/mL (211-911)
--- NOTE | 2019-05-19 09:42 | CASEMGMT ---
Addendum entered by Julius De 05/19/19 10:40: Per cardiology, pt will be staying one more day. DC cancelled for today, Dr. Gutierrez updated and aware. Andrew BAXTER Original Note: YSABEL AGUERO Note: pt has discharge order for today. Per nurse, pt has not been up ambulating much yet. PT/OT is ordered, evals pending. -Intro role of CM to patient. Pt is irritable but willing to speak with CM. Pt appeared to be alert and oriented. Knew how long he was in hospital, was able to discuss Brilinta and that his copays previously were very low (stated I don't think I paid anything). Brilinta savings card given to pt incase needed on dc. Pt will only consider returning home. Declines consideration for home health. YSABEL AGUERO explained PT/OT would get pt out of bed today and ambulate. Pt is agreeable to work with therapy. -Nurse Lor updated that pt will need PT/OT evals prior to admission. Andrew BAXTER
[2019-05-19] MEDS: Heparin Injection (Vial) 5,000 UNIT/ML VIAL 5000 UNIT SC ×2 (09:53→22:51)
[2019-05-19] MEDS: SACUBITRIL/VALSARTAN 24/26 MG TABLET 1 EACH PO (09:53)
[2019-05-19] MEDS: TICAGRELOR 90 MG TABLET PO ×2 (09:53→22:46)
[2019-05-19] MEDS: Aspirin E.C. 81 MG Tablet PO (09:53)
[2019-05-19] MEDS: Carvedilol 6.25 MG Tablet PO ×2 (09:53→22:46)
[2019-05-19] MEDS: Furosemide 80 MG Tablet PO (09:54)
--- NOTE | 2019-05-19 10:00 | EKG12_ITS ---
Test Reason : CP Blood Pressure : / mmHG Vent. Rate : 118 BPM Atrial Rate : 118 BPM P-R Int : 220 ms QRS Dur : 154 ms QT Int : 332 ms P-R-T Axes : 000 100 -43 degrees QTc Int : 465 ms Sinus tachycardia with 1st degree A-V block Right bundle branch block Acute inferior MN with resiprical changes anterior changes Abnormal ECG When compared with ECG of 02-DEC-2018 05:26, Vent. rate has increased BY [address] now depressed in Anterior leads T wave inversion more evident in Anterior leads T wave inversion no longer evident in Lateral leads Confirmed by LEILANI LUNA ([id number]), publishing editor JOSELYN MONTGOMERY ([id number]) on 06/02/2019 7:25:28 AM Referred By: Leilani Luna Confirmed By:LEILANI LUNA
[2019-05-19 10:41] LABS: Magnesium 2.2 mg/dL (1.6-2.6); Phosphorus 3.8 mg/dL (2.5-4.9)
--- NOTE | 2019-05-19 11:14 | CASEMGMT ---
Social Work Physician note indicates [facility] referral is appropriate at this time. Pt dgt spoke with RODDY Larson yesterday, but did not indicate pt is a danger to self or others at home. However, pt dgt also spoke with RN yesterday stating she was fearful of pt returning home. Physician spoke with pt dgt and requested [facility] referral be made. Phone call to Saul at [facility] and referral left on the VM. BEREKET Lara
[2019-05-19 11:51] LABS: Bedside Glucose 206 mg/dL (70-110)
--- NOTE | 2019-05-19 11:54 | NURSING ---
report called to [facility] for transfer to room 114, transferred per chair with belongings
--- NOTE | 2019-05-19 12:53 | PCM.PN.HOSP ---
Patient Problems: Active and Suspected Problems (Last Updated 05/17/19 @ 15:23 by Mirella Singletary) STEMI (ST elevation myocardial infarction) (Acute) Reason for Visit: Patient was seen and examined in ICU in the morning. Patient had 14 beats of NSVT Objective: No chest pain or shortness of breath. When patient transferred to PCU, shortly afterward patient has drop in blood pressure 76/46 and 1 500 normal saline bolus ordered over 1 hour. Blood pressure came up to 97/62. In ICU patient blood pressure remained stable, systolic 122, 116. Antihypertensive medications held. Vitals/I&O's: Vital Signs Temp Pulse Resp BP Pulse Ox 97.9 F 79 18 121/67 H 90 05/19/19 08:00 05/19/19 10:00 05/19/19 10:00 05/19/19 10:00 05/19/19 08:00 Oxygen Flow Rate (L/min) 2 Oxygen Delivery Method Room Air Weight: 158 lb 8.198 oz Body Mass Index (BMI) 26.9 Finger Stick Blood Glucose 123 Intake and Output for Last 24 Hours 05/17/19 05/18/19 05/19/19 23:59 23:59 23:59 Intake Total 1060 / 1260 580 / 580 175 / 175 Output Total 2750 / 2950 1750 / 1750 75 / 75 Balance -1690 / -1690 -1170 / -1170 100 / 100 General: Lethargic HEENT: Atraumatic, PERRLA, EOMI, Normocephalic Neck: Supple, No JVD, Negative Carotid Bruits Lungs: Clear to auscultation, No rhonchi, No wheeze, No rales, Diminished Cardiovascular: Regular rate, Regular Rhythm, Normal S1, Normal S2, No murmurs Abdomen: Bowel Sounds Present, Soft, Non Tender, Non-Distended Extremities: Capillary Refill Less than 3 Seconds, Edema Skin: No rashes, No breakdown Musculoskeletal: No Tenderness to Palpation of Joints or Extremities, Arthritic Changes Neurological: Cranial nerves II-XII grossly intact, Deep Tendon Reflexes 2+/4 and Symmetrical, Neuro grossly intact Psych/Mental Status: Normal Affect, Appropriate Laboratory Results 05/18/19 17:21: POC Glucose 142 H 05/18/19 19:35: Folate 6.40, TSH 1.20 02/26/20 19:35: Vitamin B12 469 02/26/20 19:35: Ammonia < 10.0 L 05/18/19 22:34: POC Glucose 106 05/19/19 05:00: WBC 10.6, RBC 3.56 L, Hgb 11.6 L, Hct 36.1 L, MCV 101.4 H, MCH 32.6 H, MCHC 32.1, RDW Std Deviation 50.9 H, RDW Coeff of Kirsten 13.7, Plt Count 272, MPV 10.7, Immature Gran % (Auto) 0.500, Neut % (Auto) 78.2 H, Lymph % (Auto) 9.9 L, [place] % (Auto) 8.6, Eos % (Auto) 2.4, Baso % (Auto) 0.4, Absolute Neuts (auto) 8.3 H, Absolute Lymphs (auto) 1.05, Nucleated RBC % 0 05/19/19 05:00: Sodium 134 L, Potassium 4.0, Chloride 95 L, Carbon Dioxide 31.0, Anion Gap 8, BUN 15, Creatinine 3.88 H, Estim Creat Clear Calc 14.84, Est GFR (MDRD) Af Amer 20 L, Est GFR (MDRD) Non-Af 16 L, BUN/Creatinine Ratio 3.9 L, Glucose 123 H, Calcium 8.8 05/19/19 05:00: Phosphorus 3.8, Magnesium 2.2 05/19/19 11:46: POC Glucose 206 H Current Medications Acetaminophen (Tylenol) 650 mg PO Q6H PRN PRN PRN Reason: Pain Score 1-3/10 Al Hydroxide/Mg Hydroxide (Mylanta Ii) 30 ml PO Q6H PRN PRN PRN Reason: Gastric Burning Albuterol Sulfate (Ventolin Aerosols) 2.5 mg INHALATION Q2H PRN PRN PRN Reason: SOB/Wheezing Amiodarone HCl (Cordarone) 200 mg PO TID [facility] Stop: 05/26/19 14:01 Amiodarone HCl (Cordarone) 200 mg PO BID [facility] Stop: 06/09/19 10:01 Amiodarone HCl (Cordarone) 200 mg PO DAILY [facility] Aspirin (Ecotrin) 81 mg PO DAILY@0800 [facility] Last Admin: 05/19/19 09:53 Dose: 81 mg Documented by: Atropine Sulfate () 0.5 mg IV UD PRN PRN Reason: HR <50 bpm Carvedilol (Coreg) 6.25 mg PO BID [facility] Last Admin: 05/19/19 09:53 Dose: 6.25 mg Documented by: Dextrose (D50w Syringe) 0 gm IV X1 PRN; Protocol PRN Reason: Hypoglycemia Furosemide (Lasix) 80 mg PO 1000,1800 [facility] Last Admin: 05/19/19 09:54 Dose: 80 mg Documented by: Glucagon () 1 mg IM .X1 PRN PRN Reason: Hypoglycemia Guaifenesin (Robitussin) 10 ml PO Q4H PRN PRN PRN Reason: COUGH Heparin Sodium (Beef Lung) (Heparin 500 Unit/5 Ml (100/Ml)) 500 unit IV UD PRN PRN Reason: HEPARIN FLUSH Heparin Sodium (Porcine) (Heparin Na) 5,000 unit SC Q12 [facility] Last Admin: 05/19/19 09:53 Dose: 5,000 unit Documented by: Hydralazine HCl (Apresoline Iv) 10 mg IV Q4H PRN PRN PRN Reason: SBP > 160 Insulin Human Lispro (Humalog Kwikpen (Bkc)) 0 unit SC ACHS [facility]; Protocol Last Admin: 05/19/19 08:52 Dose: Not Given Documented by: Labetalol HCl (Trandate) 5 mg IV X1 PRN PRN Reason: SBP > 160 when pulling sheath Lorazepam (Ativan) 1 mg PO Q6H PRN PRN PRN Reason: BACK SPASMS/ANXIETY Last Admin: 05/18/19 17:36 Dose: 1 mg Documented by: Magnesium Hydroxide (Milk Of Magnesia) 30 ml PO DAILY PRN PRN PRN Reason: Constipation Melatonin (Melatonin) 3 mg PO QHS PRN PRN PRN Reason: INSOMNIA Last Admin: 05/18/19 23:00 Dose: 3 mg Documented by: Metoclopramide HCl (Reglan) 5 mg IV Q6H PRN PRN PRN Reason: NAUSEA/VOMITING Mirtazapine (Remeron) 7.5 mg PO QHS [facility] Last Admin: 05/18/19 22:28 Dose: 7.5 mg Documented by: Morphine Sulfate () 2 - 4 mg IV Q4H PRN PRN PRN Reason: Pain Score 1-10/10 Nitroglycerin (Nitrostat) 0.4 mg SUBLINGUAL Q5M PRN PRN Reason: CARDIAC/CHEST PAIN Ondansetron HCl (Zofran) 4 mg IV Q8H PRN PRN PRN Reason: NAUSEA/VOMITING Oxycodone HCl (Oxyir) 5 mg PO Q4H PRN PRN PRN Reason: Pain Score 4-5/10 Last Admin: 05/18/19 23:01 Dose: 5 mg Documented by: Pravastatin Sodium (Pravachol) 80 mg PO QHS [facility] Last Admin: 05/18/19 22:28 Dose: 80 mg Documented by: Prochlorperazine Edisylate (Compazine Iv) 5 mg IV Q4H PRN PRN PRN Reason: Breakthrough Nausea/Vomiting Last Admin: 05/16/19 18:45 Dose: 5 mg Documented by: Psyllium Hydrophilic Mucilloid (Metamucil) 1 packet PO DAILY PRN PRN PRN Reason: Constipation Sacubitril/Valsartan (Entresto 24 Mg-26 Mg Tablet) 1 each PO BID [facility] Senna/Docusate Sodium (Senokot-S, Nita-Colace) 2 tablet PO BID PRN PRN Reason: Constipation Sodium Chloride () 500 ml IV BOLUS PRN PRN Reason: VASO-VAGAL PROTOCOL Sodium Chloride () 10 - 40 ml IV UD PRN PRN Reason: SALINE FLUSH Throat Lozenges (Cepacol Sore Throat Lozenge) 1 lozenge MUCOUS MEM Q2H PRN PRN PRN Reason: SORE THROAT Ticagrelor (Brilinta) 90 mg PO BID [facility] Last Admin: 05/19/19 09:53 Dose: 90 mg Documented by: STROKE Vital Signs/Narrative: Vital Signs Pulse Resp BP 05/19/19 10:00 79 18 121/67 H Medical Necessity - Tobacco Use Smoking Status: Never smoker Tobacco Use: Non-smoker Assessment/Plan All Active Problems (Last Updated 05/17/19 @ 15:23 by Mirella Singletary) STEMI (ST elevation myocardial infarction) (Acute) Non-STEMI (non-ST elevated myocardial infarction) (Acute) Unstable angina (Acute) Acute on chronic renal insufficiency (Resolved) Hyperkalemia (Resolved) Left flank pain (Resolved) Problem with dialysis access (Resolved) Uncontrollable nausea and vomiting (Resolved) The patient is a 73 y/o M with CAD s/p PCI x 11, HTN, HLD, Ischemic Cardiomyopathy, PAF, Diabetes mellitus type II, recent 11/2018 NSTEMI w/ PTCA of the stent thrombosis/restenosis of the mid RCA, ESRD ON HD is being admitted with left-sided chest pain with tooth ache radiation to left shoulder left upper extremity while he was working/taking. Patient also had nausea and diaphoresis and started about 1 PM on day of admission and lasted in ED 1. STEMI, posterior lateral as per EKG; EKG showed ST elevation in posterior and lateral leads and T inversion in inferior and lateral leads. Chest x-ray right-sided pleural effusion. Troponin elevated 0.065 and then after heart cath more than 200. Cardiac cath reported as EF 20 to 25% by LV gram. Depressed LV systolic function. Circumflex artery previous stent occluded, proximal RCA in-stent restenosis 25%, mid RCA in-stent restenosis 90%. Patient had PCI with stent put in mid circumflex, mid RCA and proximal RCA. EF 20 to 25%. Severe hypokinesis with depressed LV function. On cardiac medications including aspirin, carvedilol, sacubitril/valsartan and pravastatin. 05/18 telemetry reviewed no significant arrhythmia. Right groin does not show hematoma. 05/19 BP dropped in SBP in 70s AND 500 ml NS bolus given. Lasix and Entresto is on hold. staff climate scientist shows 14 beats of NSVT. 2. CAD: Denies history of PCI in multiple cardiac arteries in 06/09/2017, PCI in 2014 and 2011. 3. Acute on chronic systolic heart failure rate secondary to STEMI: Echo in 10/28/2018 shows EF 45%. As per the cath, EF is 20 to 25%. On furosemide 80 mg twice daily. Patient is on dialysis. 4. Chronic normocytic anemia/AOCD: Admission hemoglobin 10.6, baseline 9-11, stable. CBC ordered. 5. Diabetes mellitus type II: A1c 8.1% in November 2018. Accu-Chek is incision cover with Humalog sliding scale. Repeat A1c 6.3. 6. Hypertension: Blood pressure is running 103/63: Hold antihypertensive medication with holding parameters including Entresto 7. Hyperlipidemia: Continue home statin regimen, FLP LDL 94, HDL 38. 8. PAF: Maintained on Coreg, not anticoagulated. 9. ESRD: HD Thursday, completed prior to ED presentation, Dr. Scott saw the patient. 10. DVT prophylaxis: SCDs, heparin starting 05/17/19 am. 11. CODE status: Patient, power of district attorney is her daughter Jojo Hernandez and living will. DNR CC arrest I discussed the diagnosis, plan of management and hospital course with patient's daughter Jojo, [phone] Total time of the visit including total time spent in counseling or coordination of care, (more than 50% of the total time, spent in obtaining medical information from nurses and other ancillary care providers), coordination of care with deburring technician and fws faculty assistant, talking with patient's daughter, review of labs and imaging is 30 minutes Laboratory Results 05/17/19 07:30: Activated Clotting Time 131 05/17/19 11:02: POC Glucose 150 H 05/17/19 16:36: POC Glucose 123 H 05/17/19 21:16: POC Glucose 111 H 05/18/19 05:00: Sodium 136, Potassium 3.8, Chloride 96 L, Carbon Dioxide 32.0, Anion Gap 8, BUN 16, Creatinine 4.09 H, Estim Creat Clear Calc 14.59, Est GFR (MDRD) Af Amer 18 L, Est GFR (MDRD) Non-Af 15 L, BUN/Creatinine Ratio 3.9 L, Glucose 120 H, Calcium 8.9 05/17/19 05:10: Sodium 134 L, Potassium 6.2 H*, Chloride 97 L, Carbon Dioxide 31.0, Anion Gap 6, BUN 21 H, Creatinine 4.64 H, Estim Creat Clear Calc 12.86, Est GFR (MDRD) Af Amer 16 L, Est GFR (MDRD) Non-Af 13 L, BUN/Creatinine Ratio 4.5 L, Glucose 147 H, Calcium 7.8 L, Total Bilirubin 0.60, AST 701 H, ALT 64 H, Alkaline Phosphatase 82, Total Protein 7.0, Albumin 2.9 L, Globulin 4.1, Albumin/Globulin Ratio 0.7 L, Triglycerides 131, Cholesterol 158, LDL Cholesterol 94, VLDL Cholesterol 26, HDL Cholesterol 38 L 05/17/19 07:30: Activated Clotting Time 131 05/17/19 11:02: POC Glucose 150 H Code Visit Inpatient E&M: [id number] [facility] Hosp L3
--- NOTE | 2019-05-19 12:58 | CASEMGMT ---
YSABEL AGUERO Note. Per PT/OT, pt could benefit from further therapy on dc. Script for OP physical therapy with brochure for [facility] given to patient and explained. Initially pt declined information, however after YSABEL AGUERO discussed PT/OT evaluations pt agreed to take the script (placed in folder) but declined YSABEL AGUERO setting up an appt for him. Andrew VENEGAS RN AC
--- NOTE | 2019-05-19 13:13 | PN.RENAL_ITS ---
Patient Problems: Active and Suspected Problems (Last Updated 05/17/19 @ 15:23 by Mirella Singletary) STEMI (ST elevation myocardial infarction) (Acute) Subjective: No new complaints - Physical Exam Vitals/I&O's: Vital Signs Temp Pulse Resp BP Pulse Ox 97.9 F 79 18 121/67 H 90 05/19/19 08:00 05/19/19 10:00 05/19/19 10:00 05/19/19 10:00 05/19/19 08:00 Oxygen Flow Rate (L/min) 2 Oxygen Delivery Method Room Air Weight: 71.9 kg Body Mass Index (BMI) 26.9 Finger Stick Blood Glucose 123 Intake and Output for Last 24 Hours 05/17/19 05/18/19 05/19/19 23:59 23:59 23:59 Intake Total 1060 / 1260 580 / 580 175 / 175 Output Total 2750 / 2950 1750 / 1750 75 / 75 Balance -1690 / -1690 -1170 / -1170 100 / 100 General: Alert, Oriented x3, Cooperative HEENT: Atraumatic, PERRLA, EOMI, Normocephalic Neck: Supple, No JVD, Negative Carotid Bruits Lungs: Clear to auscultation, Normal air movement Cardiovascular: Regular rate, No murmurs Abdomen: Bowel Sounds Present, Soft, Non Tender Extremities: No edema, Capillary Refill Less than 3 Seconds Skin: No rashes, No breakdown Musculoskeletal: No Tenderness to Palpation of Joints or Extremities Neurological: Cranial nerves II-XII grossly intact Psych/Mental Status: Normal Affect, Appropriate Laboratory Results 05/18/19 17:21: POC Glucose 142 H 05/18/19 19:35: Folate 6.40, TSH 1.20 05/18/19 19:35: Vitamin B12 469 05/18/19 19:35: Ammonia < 10.0 L 05/18/19 22:34: POC Glucose 106 05/19/19 05:00: WBC 10.6, RBC 3.56 L, Hgb 11.6 L, Hct 36.1 L, MCV 101.4 H, MCH 32.6 H, MCHC 32.1, RDW Std Deviation 50.9 H, RDW Coeff of Kirsten 13.7, Plt Count 272, MPV 10.7, Immature Gran % (Auto) 0.500, Neut % (Auto) 78.2 H, Lymph % (Auto) 9.9 L, [place] % (Auto) 8.6, Eos % (Auto) 2.4, Baso % (Auto) 0.4, Absolute Neuts (auto) 8.3 H, Absolute Lymphs (auto) 1.05, Nucleated RBC % 0 05/19/19 05:00: Sodium 134 L, Potassium 4.0, Chloride 95 L, Carbon Dioxide 31.0, Anion Gap 8, BUN 15, Creatinine 3.88 H, Estim Creat Clear Calc 14.84, Est GFR (MDRD) Af Amer 20 L, Est GFR (MDRD) Non-Af 16 L, BUN/Creatinine Ratio 3.9 L, Glucose 123 H, Calcium 8.8 05/19/19 05:00: Phosphorus 3.8, Magnesium 2.2 05/19/19 11:46: POC Glucose 206 H Current Medications Acetaminophen (Tylenol) 650 mg PO Q6H PRN PRN PRN Reason: Pain Score 1-3/10 Al Hydroxide/Mg Hydroxide (Mylanta Ii) 30 ml PO Q6H PRN PRN PRN Reason: Gastric Burning Albuterol Sulfate (Ventolin Aerosols) 2.5 mg INHALATION Q2H PRN PRN PRN Reason: SOB/Wheezing Amiodarone HCl (Cordarone) 200 mg PO TID [facility] Stop: 05/26/19 14:01 Amiodarone HCl (Cordarone) 200 mg PO BID [facility] Stop: 06/09/19 10:01 Amiodarone HCl (Cordarone) 200 mg PO DAILY [facility] Aspirin (Ecotrin) 81 mg PO DAILY@0800 [facility] Last Admin: 05/19/19 09:53 Dose: 81 mg Documented by: Atropine Sulfate () 0.5 mg IV UD PRN PRN Reason: HR <50 bpm Carvedilol (Coreg) 6.25 mg PO BID [facility] Last Admin: 05/19/19 09:53 Dose: 6.25 mg Documented by: Dextrose (D50w Syringe) 0 gm IV X1 PRN; Protocol PRN Reason: Hypoglycemia Furosemide (Lasix) 80 mg PO 1000,1800 [facility] Last Admin: 05/19/19 09:54 Dose: 80 mg Documented by: Glucagon () 1 mg IM .X1 PRN PRN Reason: Hypoglycemia Guaifenesin (Robitussin) 10 ml PO Q4H PRN PRN PRN Reason: COUGH Heparin Sodium (Beef Lung) (Heparin 500 Unit/5 Ml (100/Ml)) 500 unit IV UD PRN PRN Reason: HEPARIN FLUSH Heparin Sodium (Porcine) (Heparin Na) 5,000 unit SC Q12 [facility] Last Admin: 05/19/19 09:53 Dose: 5,000 unit Documented by: Hydralazine HCl (Apresoline Iv) 10 mg IV Q4H PRN PRN PRN Reason: SBP > 160 Insulin Human Lispro (Humalog Kwikpen (Bkc)) 0 unit SC ACHS [facility]; Protocol Last Admin: 05/19/19 08:52 Dose: Not Given Documented by: Labetalol HCl (Trandate) 5 mg IV X1 PRN PRN Reason: SBP > 160 when pulling sheath Lorazepam (Ativan) 1 mg PO Q6H PRN PRN PRN Reason: BACK SPASMS/ANXIETY Last Admin: 05/18/19 17:36 Dose: 1 mg Documented by: Magnesium Hydroxide (Milk Of Magnesia) 30 ml PO DAILY PRN PRN PRN Reason: Constipation Melatonin (Melatonin) 3 mg PO QHS PRN PRN PRN Reason: INSOMNIA Last Admin: 05/18/19 23:00 Dose: 3 mg Documented by: Metoclopramide HCl (Reglan) 5 mg IV Q6H PRN PRN PRN Reason: NAUSEA/VOMITING Mirtazapine (Remeron) 7.5 mg PO QHS [facility] Last Admin: 05/18/19 22:28 Dose: 7.5 mg Documented by: Morphine Sulfate () 2 - 4 mg IV Q4H PRN PRN PRN Reason: Pain Score 1-10/10 Nitroglycerin (Nitrostat) 0.4 mg SUBLINGUAL Q5M PRN PRN Reason: CARDIAC/CHEST PAIN Ondansetron HCl (Zofran) 4 mg IV Q8H PRN PRN PRN Reason: NAUSEA/VOMITING Oxycodone HCl (Oxyir) 5 mg PO Q4H PRN PRN PRN Reason: Pain Score 4-5/10 Last Admin: 05/18/19 23:01 Dose: 5 mg Documented by: Pravastatin Sodium (Pravachol) 80 mg PO QHS [facility] Last Admin: 05/18/19 22:28 Dose: 80 mg Documented by: Prochlorperazine Edisylate (Compazine Iv) 5 mg IV Q4H PRN PRN PRN Reason: Breakthrough Nausea/Vomiting Last Admin: 05/16/19 18:45 Dose: 5 mg Documented by: Psyllium Hydrophilic Mucilloid (Metamucil) 1 packet PO DAILY PRN PRN PRN Reason: Constipation Sacubitril/Valsartan (Entresto 24 Mg-26 Mg Tablet) 1 each PO BID [facility] Senna/Docusate Sodium (Senokot-S, Nita-Colace) 2 tablet PO BID PRN PRN Reason: Constipation Sodium Chloride () 500 ml IV BOLUS PRN PRN Reason: VASO-VAGAL PROTOCOL Sodium Chloride () 10 - 40 ml IV UD PRN PRN Reason: SALINE FLUSH Throat Lozenges (Cepacol Sore Throat Lozenge) 1 lozenge MUCOUS MEM Q2H PRN PRN PRN Reason: SORE THROAT Ticagrelor (Brilinta) 90 mg PO BID [facility] Last Admin: 05/19/19 09:53 Dose: 90 mg Documented by: Medical Necessity - Tobacco Use Smoking Status: Never smoker Tobacco Use: Non-smoker Assessment/Plan All Active Problems (Last Updated 05/17/19 @ 15:23 by Mirella Singletary) STEMI (ST elevation myocardial infarction) (Acute) Non-STEMI (non-ST elevated myocardial infarction) (Acute) Unstable angina (Acute) Acute on chronic renal insufficiency (Resolved) Hyperkalemia (Resolved) Left flank pain (Resolved) Problem with dialysis access (Resolved) Uncontrollable nausea and vomiting (Resolved) End-stage renal disease. Continue dialysis as per schedule Hyperkalemia. imProved with dialysis Dyspnea. Clinically better.
[2019-05-19] MEDS: Amiodarone 200 MG Tablet PO ×2 (14:54→22:51)
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
[2019-05-19 17:36] LABS: Bedside Glucose 122 mg/dL (70-110)
[2019-05-19] MEDS: Pravastatin 80 MG Tablet PO (22:47)
[2019-05-19] MEDS: Mirtazapine 15 MG Tablet 7.5 MG PO (22:47)
[2019-05-20] VITALS (8 sets, daily range): BP systolic 100–122; BP diastolic 38–64; PULSE 66–80; RESP 13–16; TEMP 36.3–36.7; O2SAT 92–97
[2019-05-20 01:06] LABS: Bedside Glucose 132 mg/dL (70-110)
[2019-05-20 06:30] LABS: Bedside Glucose 128 mg/dL (70-110)
--- NOTE | 2019-05-20 06:30 | NURSING ---
This RN joking with patient about how he needs to get better so he doesn't have to get readmitted. Pt states, I'll shoot myself.
[2019-05-20] MEDS: Amiodarone 200 MG Tablet PO (06:34)
[2019-05-20 07:24] LABS: Absolute Lymphocyte Count 1.05 X10^3/uL (0.83-4.51); Absolute Neutrophil Count 6.5 X10^3/uL (2.0-7.7); Basophil# 0.03 X10^3/uL; Basophil% 0.3 % (0-1); Eosinophil# 0.23 X10^3/uL; Eosinophils% 2.7 % (0-5); Hematocrit 34.3 % (40-54); Hemoglobin 11.2 g/dL (13.0-16.5); Lymphocyte # 1.05 X10^3/ul (4.0); Lymphocyte % 12.2 % (19-41); Mean Corp Hgb Conc 32.7 g/dL (32-36); Mean Corpuscular Volume 101.2 fL (80-94); Mean Platelet Vol. 10.6 fl (6.2-12.0); Monocyte# 0.81 X10^3/uL; Monocyte% 9.4 % (0-10); NRBC Flagged by Analyzer 0 % (0-5); Neutrophil # 6.46 X10^3/uL (2.7-7.7); Neutrophil % 74.8 % (47-70); Platelet Count 288 K/mm3 (150-450); RBC Distribution Width SD 51.2 fl (35.1-43.9); Red Blood Count 3.39 M/mm3 (4.6-6.2); White Blood Count 8.6 K/mm3 (4.4-11.0)
[2019-05-20 07:36] LABS: Bedside Glucose 132 mg/dL (70-110)
[2019-05-20 08:01] LABS: Anion Gap 11 (5-15); BUN 29 mg/dL (7-18); BUN/Creat Ratio 4.7 RATIO (10-20); Calcium,Total 8.9 mg/dL (8.5-10.1); Chloride 98 mmol/L (98-107); EST Glomerular Filtration Rate 9 mL/min (>60); Est Glom Filt Rate - Afr Amer 11 mL/min (>60); Estimated Creatinine Clearance 9.29 ml/min; Glucose 126 mg/dL (74-106); Potassium 3.7 mmol/L (3.5-5.1); Sodium Level 136 mmol/L (136-145)
--- NOTE | 2019-05-20 09:34 | PN.CARD_ITS ---
<Sean Ferguson - Last Filed: 05/20/19 11:06> Subjectve: Patient seen and evaluated. He acknowledges feeling well. He denies any shortness of breath or chest pain. He denies any palpitations, lightheadedness, or dizziness. Objective: Vital Signs Temp Pulse Resp BP Pulse Ox 97.8 F 67 16 100/64 92 05/20/19 09:11 05/20/19 09:11 05/20/19 09:11 05/20/19 09:11 05/20/19 09:11 Oxygen Flow Rate (L/min) 2 Oxygen Delivery Method Room Air Weight: 158 lb 4.67 oz Body Mass Index (BMI) 26.9 Finger Stick Blood Glucose 123 Intake and Output for Last 24 Hours 05/18/19 05/19/19 05/20/19 23:59 23:59 23:59 Intake Total 580 / 580 1165 / 1165 0 / 0 Output Total 1750 / 1750 75 / 75 Balance -1170 / -1170 1090 / 1090 0 / 0 General: Healthy Appearing, Awake, Alert, Oriented x 3 Oral: Moist Mucosa Neck: No JVD Lungs: Diminished Nestor Bases Cardiovascular: Regular Rhythm, Normal S1, Normal S2 Vascular: No Carotid Bruits Extremities: No Cyanosis, No Clubbing, No edema, Normal Capillary Refill Musculoskeletal: No Erythema Skin: No Rashes Neurological: No Focal Motor or Sensory Deficit Psych/Mental Status: Appropriate, Normal Affect 05/19/19 05:00: Phosphorus 3.8, Magnesium 2.2 05/20/19 07:00: WBC 8.6, RBC 3.39 L, Hgb 11.2 L, Hct 34.3 L, MCV 101.2 H, MCH 33.0 H, MCHC 32.7, Plt Count 288, MPV 10.6, Immature Gran % (Auto) 0.600, Neut % (Auto) 74.8 H, Lymph % (Auto) 12.2 L, [place] % (Auto) 9.4, Eos % (Auto) 2.7, Baso % (Auto) 0.3, Absolute Neuts (auto) 6.5, Nucleated RBC % 0 05/20/19 07:00: Sodium 136, Potassium 3.7, Chloride 98, Carbon Dioxide 27.0, Anion Gap 11, BUN 29 H, Creatinine 6.20 H, Est GFR (MDRD) Af Amer 11 L, Est GFR (MDRD) Non-Af 9 L, BUN/Creatinine Ratio 4.7 L, Glucose 126 H, Calcium 8.9 Rhythm: EKG: ECHO: 05/18/2019 Interpretation Summary Mild concentric left ventricular hypertrophy. Moderately dilated left ventricle. The estimated ejection fraction is 25 %. Stage 1 diastolic dysfunction. Mild-Moderate (1-2+) posteriorly directed mitral valve insufficiency. Mild (1+) tricuspid valve insufficiency. Right ventricular systolic pressure estimated to be 40 mmHg. Mild pulmonary hypertension. Compared to echo results dated 10/28/2018 LV function has deteriorated from 45% to 25%, unable to calculate RVSP at that time. Stress Test: Cardiac Cath: 05/16/2019 CONCLUSIONS Global LV systolic dysfunction- Severe LVEF: by LV gram 20-25 % Depressed Left Ventricular systolic function - Severe Elevated Left Ventricular End Diastolic Pressure Double vessel CAD of the LCX and RCA Non obstructive coronary arteries Successful PTCA/HASMUKH emergent heparin/Integrilin bolus assisted PCI to mid LCX with a 2.5 x 16 Promus Synergy, post dilated with a 3.0 x 8 NC balloon using double wire technique; 100%-->0%, no dissection. Successful PTCA/HASMUKH to mid RCA with a 2.5 x 10 Angiosculpt, followed by a 2.5 x 14 Resolute, post dilated with a 3.0 x 8 NC baloon; 90%-->0%, no dissection. Successful PTCA/HASMUKH PCI with 2.5 x 10 Angiosculpt to proximal RCA, followed with a 3.0 x 15 Resolute HASMUKH, post dilated throughout with a 3.0 x 8 NC Balloon; 75%-->0%, no dissection. RECOMMENDATIONS Referred for immediate PCI Highly recommend quitting all tobacco products Follow up with primary manufacturing lead Risk factor modification ASA Indefinitley Plavix for at least 12 months Routine post interventional care Refer for Outpatient Cardiac Rehab Manual sheath removal per protocol Follow up with Dr. Dan Manual sheath removal once ACT<150; unable to use IABP due to extreme aorto- iliac tortuosity and access in R profunda. asa/brilinta for life. 2D echo in am. d/w [facility] Cole and Alvarez. It appears STEMI delay was due to ER attending to multiple critically ill people simultaneously. CORONARY ANGIOGRAPHY DOMINANCE: Co- Dominant LEFT HEART ASSESSMENT Left Ventricular Ejection Fraction: by LV Gram 20-25 % Depressed Left Ventricular systolic function LVEDP: 25 mmHg Elevated Left Ventricular End Diastolic Pressure Global Hypokinesis - Severe LEFT MAIN: Non-obstructive LEFT ANTERIOR DESCENDING ARTERY: PROX LAD: Previously placed stent is patent MID LAD: Mild luminal irregularities less than 30% CIRCUMFLEX ARTERY: MID CIRC: Previously placed stent is occluded RIGHT CORONARY ARTERY: PROX RCA: Instent restenosis 75 % MID RCA: Instent restenosis 90 % Stress Test: Cardiac Cath: PCI: CT Surgery: Holter monitor: EPS: PPM: CXR: Chest CT Scan: Medical Necessity - Tobacco Use Smoking Status: Never smoker Tobacco Use: Non-smoker Assessment/Plan 1. Acute ST segment elevation UT The patient has undergone evaluation and care for an acute ST segment elevation UT. This included urgent/emergent diagnostic cardiac catheterization and subsequent PCI as noted. The present time the patient continues to recuperate, currently in PCU. He states feeling well. He denies any symptoms of concern. He will continue to be monitored. He will continue medical management. 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 From a cardiovascular standpoint he may be discharged. 2. CAD status post PCI The patient will continue to be monitored. He will continue medical therapy with adjustment as tolerated. He will continue with Brilinta therapy for at least 1 year. 3. Ischemic mediated cardiomyopathy The patient's overall LV systolic function/LVEF appears to have decreased compared to his most recent previous noninvasive study. It had been noted to be decreased in the past and appeared to improve. Hopefully with his recent PCI his overall LV systolic function/LVEF will improve again on an outpatient basis. Patient's Entresto was adjusted to 24-26 mg p.o. twice daily rather than daily. He will continue with Coreg 6.25 mg p.o. daily. Given his lower blood pressure readings, his medications will need to be adjusted as needed. After repeat echocardiogram, if his LV function remains 35% or below we will need to consider a preventative ICD. 4. Paroxysmal atrial fibrillation The patient's rate and rhythm will be monitored. He did have a short run of VT for approximately 14 beats on 05/19/2019. Started on amiodarone tapering dose. There were no dysrhythmia noted overnight or this morning. He appears to be in sinus rhythm. At this time, he will continue current medical therapy we will continue to monitor. 5. Hyperlipidemia The patient will continue medical management. 6. Hypertension The patient will need to continue medical therapy with adjustment as deemed appropriate taken into consideration his renal insufficiency, etc. 7. Diabetes mellitus Patient will continue evaluation care per internal medicine. 8. Chronic renal insufficiency/chronic hemodialysis Patient typically gets dialysis on Thursday, Thursday, and Thursday and this may complicate overall discharge today. Patient's case was discussed with Dr. Dan, who will also personally evaluate patient. Please see his dictation for further input and recommendation. This note was generated using a voice recognition system and there may be incorrect words, spelling or punctuation that were not noted when reviewing the office note prior to saving. <Juan Dan - Last Filed: 05/20/19 18:12> Objective: Vital Signs Temp Pulse Resp BP Pulse Ox 97.8 F 80 16 102/38 L 97 05/20/19 13:43 05/20/19 15:50 05/20/19 13:43 05/20/19 13:43 05/20/19 14:25 Oxygen Flow Rate (L/min) 2 Oxygen Delivery Method Room Air Weight: 158 lb 4.67 oz Body Mass Index (BMI) 26.9 Finger Stick Blood Glucose 123 Intake and Output for Last 24 Hours 05/18/19 05/19/19 05/20/19 23:59 23:59 23:59 Intake Total 580 / 580 1165 / 1165 360 / 360 Output Total 1750 / 1750 75 / 75 Balance -1170 / -1170 1090 / 1090 360 / 360 05/20/19 07:00: WBC 8.6, RBC 3.39 L, Hgb 11.2 L, Hct 34.3 L, MCV 101.2 H, MCH 33.0 H, MCHC 32.7, Plt Count 288, MPV 10.6, Immature Gran % (Auto) 0.600, Neut % (Auto) 74.8 H, Lymph % (Auto) 12.2 L, [place] % (Auto) 9.4, Eos % (Auto) 2.7, Baso % (Auto) 0.3, Absolute Neuts (auto) 6.5, Nucleated RBC % 0 05/20/19 07:00: Sodium 136, Potassium 3.7, Chloride 98, Carbon Dioxide 27.0, Anion Gap 11, BUN 29 H, Creatinine 6.20 H, Est GFR (MDRD) Af Amer 11 L, Est GFR (MDRD) Non-Af 9 L, BUN/Creatinine Ratio 4.7 L, Glucose 126 H, Calcium 8.9 Rhythm: EKG: ECHO: Stress Test: Cardiac Cath: PCI: CT Surgery: Holter monitor: EPS: PPM: CXR: Chest CT Scan: Assessment/Plan Addendum: Date: 05-20-2019 The patient had no new acute complaints. He states his breathing has improved overall. He has continued dialysis therapy which she is receiving at this time. He appears to be tolerating it reasonably well depending upon his fluid balance and his blood pressures. His lungs appear to be demonstrating an element of diminished breath sounds in the bases. His cardiovascular exam demonstrates a regular rhythm. There is a normal S1 and S2. His lower extremities demonstrate no obvious peripheral pitting edema. His cardiac rhythm has remained sinus rhythm. Overall from a cardiac standpoint he is recuperating from his STEMI event superimposed upon his history of CAD/PCI, ischemic mediated cardiomyopathy and paroxysmal atrial fibrillation superimposed upon his hyperlipidemia, hypertension, diabetes mellitus, and chronic renal failure on chronic hemodialysis. He will continue medical therapy with adjustment. The adjustments are hopefully to balance his blood pressure. He will need to continue dialysis therapy. He will need continued outpatient cardiovascular follow-up to monitor his cardiac status, his LV systolic function, and consideration for possible future ICD placement if the patient so desires. Comment: The patient's case was discussed and reviewed with the patient and Sean Ferguson CNP. This note was generated using a voice recognition system and there may be incorrect words, spelling or punctuation that were not noted when reviewing the office note prior to saving.
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
[2019-05-20] MEDS: Aspirin E.C. 81 MG Tablet PO (10:40)
[2019-05-20] MEDS: TICAGRELOR 90 MG TABLET PO (10:40)
[2019-05-20] MEDS: Heparin Injection (Vial) 5,000 UNIT/ML VIAL 5000 UNIT SC (10:40)
--- NOTE | 2019-05-20 11:34 | DCINST_ITS ---
- Discharge Diagnoses Current Active Problems: Current Active and Chronic Problems (Last Updated 05/17/19 @ 15:23 by Mirella Singletary) STEMI (ST elevation myocardial infarction) (Acute) You will use the following diet at home:: Cardiac Your food should be the consistency of: Regular Discharge Activity: May Not Drive Weight Bearing Status: Weight bearing as tolerated Call your doctor if you observe: Fever of 101 or Higher, Numbness or Tingling, Inability to urinate, Inability to have a bowel movement, Shortness of breath, Dizziness, Fainting spells, Swelling in the ankles, Chest pain, Prolonged hiccoughing, Uncontrolled pain Allergies/Adverse Reactions: Allergies codeine Allergy (Verified 05/16/19 15:05) Itching Medications to take at Discharge linagliptin 5 mg tablet 5 mg PO QHS 09/30/18 pravastatin 80 mg tablet 80 mg PO DAILY #30 tab 09/30/18 carvedilol 6.25 mg tablet 6.25 mg PO BID #60 tab 11/12/18 Sacubitril/Valsartan 24/26 mg [Entresto 24 mg-26 mg Tablet] 1 tab PO DAILY 11/30/18 Mirtazapine [Remeron] 7.5 mg PO QHS #30 tab 12/02/18 Aspirin [Low Dose Aspirin EC] 81 mg PO DAILY #30 05/19/19 Nitroglycerin (INPATIENT USE) [Nitrostat] 0.4 mg SUBLINGUAL Q5M PRN #30 tab.subl 05/19/19 Ticagrelor [Brilinta] 90 mg PO BID #60 tab 05/19/19 Amiodarone HCl [Cordarone] 200 mg PO BID tablet 05/20/19 Amiodarone HCl [Cordarone] 200 mg PO DAILY tablet 05/20/19 Amiodarone HCl [Cordarone] 200 mg PO TID #90 tab 05/20/19 Furosemide [Lasix] 80 mg PO BID #0 05/20/19 The following prescriptions were given: Ticagrelor [Brilinta] 90 mg PO BID #60 tab Transmission Status: Received by [facility] Aspirin [Low Dose Aspirin EC] 81 mg PO DAILY #30 Nitroglycerin (INPATIENT USE) [Nitrostat] 0.4 mg SUBLINGUAL Q5M PRN #30 tab.subl PRN Reason: Cardiac/Chest Pain Transmission Status: Received by [facility] Primary Care Physician: Sean Medina MD [Primary Care Provider] - Please follow up with your Primary Care Physician in: in 2 weeks Test Results: Test results from this visit will be discussed in further detail at your follow- up appointment, if applicable. Please Follow Up With: Sean Ferguson NP-C When: 06/03/19 Please Follow Up With: Esvin Scott MD When: in 3-4 weeks
--- NOTE | 2019-05-20 11:40 | DS.PCM_ITS ---
Discharge Date and Diagnosis - Problem List Patient Problems: Active and Suspected Problems (Last Updated 05/17/19 @ 15:23 by Mirella Singletary) STEMI (ST elevation myocardial infarction) (Acute) Date of Admission: 05/16/19 Date of Discharge: 05/20/19 - Primary Discharge Diagnosis Active and Suspected Problems (Last Updated 05/17/19 @ 15:23 by Mirella Singletary) STEMI (ST elevation myocardial infarction) (Acute) - Secondary Discharge Diagnosis Chronic Problems (Last Updated 05/17/19 @ 15:23 by Mirella Singletary) Non compliance w medication regimen (Chronic) Depression (Chronic) Presence of stent in coronary artery (Chronic ~05/16/19) thrombectomy with PTCA with HASMUKH to proximal, mid and distal RCA 03/03; PTCA with stenting to mid & distal RCA 07/05, PTCA of proximal LAD 07/05; Successful PTCA/HASMUKH of the of proxima RCA in stent restenosis, utilizing a 2.0 x 12 Angiosculpt, followed by a 3.0 x 33 Elunira HASMUKH; 85%-->0%, no dissection.Successful PTCA/HASMUKH of the mid LPL branch of the LCX with a 3.0 x 16 Promus Synergy; 75%-->0%, no dissection; Successful PTCA/HASMUKH of the mid LCX with a 2.75 x 16 Promus Synergy; 75%-->0%, no dissection. No PCI of smal OM branch perfomed due to small vessel disease. 05/20/18; Successful PTCA/HASMUKH proximal LCX with a 3.0 x 16 Promus Synergy, 85%-->0%, no dissection. Successful PTCA/HASMUKH mid RCA ISR with a 2.5 x 10 Angiosculpt, followed with a 3.0 x 38 Promus Synergy, post dilated with a 3.0 and 3.5 x 12 NC balloon; 85%-->0%, no dissection. 10/28/18; Successful PTCA of stent thrombosis/restenosis in mid RCA. per cath 12/01/18 Successful PTCA/HASMUKH emergent heparin/Integrilin bolus assisted PCI to mid LCX with a 2.5 x 16 Promus Synergy, post dilated with a 3.0 x 8 NC balloon using double wire technique; 100%-->0%, no dissection. Successful PTCA/HASMUKH to mid RCA with a 2.5 x 10 Angiosculpt, followed by a 2.5 x 14 Resolute, post dilated with a 3.0 x 8 NC baloon; 90%-->0%, no dissection. Successful PTCA/HASMUKH PCI with 2.5 x 10 Angiosculpt to proximal RCA, followed with a 3.0 x 15 Resolute HASMUKH, post dilated throughout with a 3.0 x 8 NC Balloon; 75%-->0%, no dissection. per cath 05/16/19 Essential hypertension (Chronic) ESRD (end stage renal disease) on dialysis (Chronic) Old myocardial infarction (Chronic) Inferior MO, anterior MO 07/05 intermediate frame tender use of drug (Chronic) Antihyperlipidemic Family history of hypertension (Chronic) Other secondary pulmonary hypertension (Chronic) Subendocardial ischemia (Chronic) Ischemic cardiomyopathy (Chronic) Nonrheumatic mitral valve regurgitation (Chronic) Rheumatic tricuspid insufficiency (Chronic) Paroxysmal atrial fibrillation (Chronic) Atherosclerotic heart disease of [place] coronary artery without angina pectoris (Chronic) PTCA/HASMUKH to proximal RCA, mid LPL branch of the LCx, in mid LCx in April 2017; angioplasty and PCI to mid and distal RCA in 2014; thrombectomy and PCI to proximal, mid, and distal RCA in 2011; Type II diabetes mellitus (Chronic) Hyperlipidemia associated with type 2 diabetes mellitus (Chronic) HLD (hyperlipidemia) (Chronic) Hospital Course and Treatment Operations: None Summary of Care Provided: [] The patient is a 73 y/o M with CAD s/p PCI x 11, HTN, HLD, Ischemic Cardiomyopathy, PAF, Diabetes mellitus type II, recent 11/2018 NSTEMI w/ PTCA of the stent thrombosis/restenosis of the mid RCA, ESRD ON HD is being admitted with left-sided chest pain with tooth ache radiation to left shoulder left upper extremity while he was working/taking. Patient also had nausea and diaphoresis and started about 1 PM on day of admission and lasted in ED 1. STEMI, posterior lateral wall with post PCI NSVT and hypotension; EKG showed ST elevation in posterior and lateral leads and T inversion in inferior and lateral leads. Chest x-ray right-sided pleural effusion. Troponin elevated 0.065 and then after heart cath more than 200. Cardiac cath reported as EF 20 to 25% by LV gram. Depressed LV systolic function. Circumflex artery previous stent occluded, proximal RCA in-stent restenosis 25%, mid RCA in-stent restenosis 90%. Patient had PCI with stent put in mid circumflex, mid RCA and proximal RCA. EF 20 to 25%. Severe hypokinesis with depressed LV function. On cardiac medications including aspirin, carvedilol, sacubitril/valsartan and pravastatin. Patient had NSVT. Patient also had hypotension mostly secondary to fluid shift and Lasix and Entresto. Patient was stabilized after that. Hazardous Waste Technician has seen the patient and is stable for discharge. 2. CAD: Denies history of PCI in multiple cardiac arteries in 06/09/2017, PCI in 2014 and 2011. 3. Acute on chronic systolic heart failure rate secondary to STEMI: Echo in 10/28/2018 shows EF 45%. As per the cath, EF is 20 to 25%. On furosemide 80 mg twice daily. Patient is on dialysis. 4. Chronic normocytic anemia/AOCD: Admission hemoglobin 10.6, baseline 9-11, stable. CBC ordered. 5. Diabetes mellitus type II: A1c 8.1% in November 2018. Accu-Chek is incision cover with Humalog sliding scale. Repeat A1c 6.3. 6. Hypertension: Blood pressure is running 103/63: Hold antihypertensive medication with holding parameters including Entresto 7. Hyperlipidemia: Continue home statin regimen, FLP LDL 94, HDL 38. 8. PAF: Maintained on Coreg, not anticoagulated. 9. ESRD: HD Thursday, completed prior to ED presentation, Dr. Scott saw the patient. 10. DVT prophylaxis: SCDs, heparin starting 05/17/19 am. Acute encephalopathy mainly in ICU with history of aggressive/impulsive personality and mild memory loss probably early dementia: Discussed with the patient's daughter. Outpatient follow-up with neurologist for complete evaluation of dementia. 11. CODE status: Patient, power of claim attorney is her daughter Jojo Hernandez and living will. DNR CC arrest Discharge medication reconciliation done. Discharge follow-up instructions completed. Discharge process discussed with the patient and all questions were answered to patient's satisfaction. Cardiac medications discussed with the forest fire specialist supervisor. Discharged on Lasix 40 mg twice daily, amiodarone, carvedilol, aspirin and Brilinta and Entresto 24/26 mg twice daily with holding parameters. Total time spent, exact 35 minutes on discharge meds reconciliation, examination, coordination of care with nurses and ancillary staff, review of imaging and blood test and discussion with the patient on follow-up instructions Patient Problems: Active and Suspected Problems (Last Updated 05/17/19 @ 15:23 by Mirella Singletary) STEMI (ST elevation myocardial infarction) (Acute) Subjective: Patient wants to go home. No shortness of breath or chest pain. Yesterday, discussed with patient's daughter, Jojo. Patient has impulsive/mild aggressive personality. He also seem to have some confusion. Advised follow-up with neurologist as an outpatient rule out dementia. Objective: General: Alert, awake and oriented x3. HEENT: Atraumatic, PERRLA, EOMI, Normocephalic Neck: Supple, No JVD, Negative Carotid Bruits Lungs: Clear to auscultation, No rhonchi, No wheeze, No rales, air entry bilateral lung bases diminished Cardiovascular: Regular rate, Regular Rhythm, Normal S1, Normal S2, No murmurs. Paced rhythm on monitor Abdomen: Bowel Sounds Present, Soft, Non Tender, Non-Distended Extremities: Capillary Refill Less than 3 Seconds, mild bilateral ankle edema Skin: No rashes, No breakdown Musculoskeletal: No Tenderness to Palpation of Joints or Extremities, Arthritic Changes Neurological: Cranial nerves II-XII grossly intact, Deep Tendon Reflexes 2+/4 and Symmetrical, Neuro grossly intact Psych/Mental Status: Normal Affect, Appropriate - Physical Exam Vitals/I&O's: Vital Signs Temp Pulse Resp BP Pulse Ox 97.8 F 67 16 100/64 92 05/20/19 09:11 05/20/19 09:11 05/20/19 09:11 05/20/19 09:11 05/20/19 09:11 Oxygen Flow Rate (L/min) 2 Oxygen Delivery Method Room Air Weight: 158 lb 4.67 oz Body Mass Index (BMI) 26.9 Finger Stick Blood Glucose 123 Intake and Output for Last 24 Hours 05/18/19 05/19/19 05/20/19 23:59 23:59 23:59 Intake Total 580 / 580 1165 / 1165 0 / 0 Output Total 1750 / 1750 75 / 75 Balance -1170 / -1170 1090 / 1090 0 / 0 Laboratory Results 05/19/19 11:46: POC Glucose 206 H 05/19/19 16:40: POC Glucose 122 H 05/19/19 22:55: POC Glucose 132 H 05/20/19 03:02: POC Glucose 128 H 05/20/19 06:37: POC Glucose 132 H 05/20/19 07:00: WBC 8.6, RBC 3.39 L, Hgb 11.2 L, Hct 34.3 L, MCV 101.2 H, MCH 33.0 H, MCHC 32.7, RDW Std Deviation 51.2 H, RDW Coeff of Kirsten 14.0, Plt Count 288, MPV 10.6, Immature Gran % (Auto) 0.600, Neut % (Auto) 74.8 H, Lymph % (Auto) 12.2 L, Person % (Auto) 9.4, Eos % (Auto) 2.7, Baso % (Auto) 0.3, Absolute Neuts (auto) 6.5, Absolute Lymphs (auto) 1.05, Nucleated RBC % 0 05/20/19 07:00: Sodium 136, Potassium 3.7, Chloride 98, Carbon Dioxide 27.0, Anion Gap 11, BUN 29 H, Creatinine 6.20 H, Estim Creat Clear Calc 9.29, Est GFR (MDRD) Af Amer 11 L, Est GFR (MDRD) Non-Af 9 L, BUN/Creatinine Ratio 4.7 L, Glucose 126 H, Calcium 8.9 Current Medications Acetaminophen (Tylenol) 650 mg PO Q6H PRN PRN PRN Reason: Pain Score 1-3/10 Albuterol Sulfate (Ventolin Aerosols) 2.5 mg INHALATION Q2H PRN PRN PRN Reason: SOB/Wheezing Amiodarone HCl (Cordarone) 200 mg PO TID [facility] Stop: 05/26/19 14:01 Last Admin: 05/20/19 06:34 Dose: 200 mg Documented by: Amiodarone HCl (Cordarone) 200 mg PO BID [facility] Stop: 06/09/19 10:01 Amiodarone HCl (Cordarone) 200 mg PO DAILY [facility] Aspirin (Ecotrin) 81 mg PO DAILY@0800 [facility] Last Admin: 05/20/19 10:40 Dose: 81 mg Documented by: Atropine Sulfate () 0.5 mg IV UD PRN PRN Reason: HR <50 bpm Carvedilol (Coreg) 6.25 mg PO BID [facility] Last Admin: 05/20/19 10:34 Dose: Not Given Documented by: Dextrose (D50w Syringe) 0 gm IV X1 PRN; Protocol PRN Reason: Hypoglycemia Furosemide (Lasix) 40 mg PO 1000,1800 [facility] Last Admin: 05/20/19 10:35 Dose: Not Given Documented by: Glucagon () 1 mg IM .X1 PRN PRN Reason: Hypoglycemia Guaifenesin (Robitussin) 10 ml PO Q4H PRN PRN PRN Reason: COUGH Heparin Sodium (Beef Lung) (Heparin 500 Unit/5 Ml (100/Ml)) 500 unit IV UD PRN PRN Reason: HEPARIN FLUSH Heparin Sodium (Porcine) (Heparin Na) 5,000 unit SC Q12 [facility] Last Admin: 05/20/19 10:40 Dose: 5,000 unit Documented by: Hydralazine HCl (Apresoline Iv) 10 mg IV Q4H PRN PRN PRN Reason: SBP > 160 Insulin Human Lispro (Humalog Kwikpen (Bkc)) 0 unit SC ACHS [facility]; Protocol Last Admin: 05/20/19 06:37 Dose: Not Given Documented by: Labetalol HCl (Trandate) 5 mg IV X1 PRN PRN Reason: SBP > 160 when pulling sheath Lorazepam (Ativan) 1 mg PO Q6H PRN PRN PRN Reason: BACK SPASMS/ANXIETY Last Admin: 05/18/19 17:36 Dose: 1 mg Documented by: Melatonin (Melatonin) 3 mg PO QHS PRN PRN PRN Reason: INSOMNIA Last Admin: 05/18/19 23:00 Dose: 3 mg Documented by: Metoclopramide HCl (Reglan) 5 mg IV Q6H PRN PRN PRN Reason: NAUSEA/VOMITING Mirtazapine (Remeron) 7.5 mg PO QHS [facility] Last Admin: 05/19/19 22:47 Dose: 7.5 mg Documented by: Morphine Sulfate () 2 - 4 mg IV Q4H PRN PRN PRN Reason: Pain Score 1-10/10 Nitroglycerin (Nitrostat) 0.4 mg SUBLINGUAL Q5M PRN PRN Reason: CARDIAC/CHEST PAIN Ondansetron HCl (Zofran) 4 mg IV Q8H PRN PRN PRN Reason: NAUSEA/VOMITING Oxycodone HCl (Oxyir) 5 mg PO Q4H PRN PRN PRN Reason: Pain Score 4-5/10 Last Admin: 05/18/19 23:01 Dose: 5 mg Documented by: Pravastatin Sodium (Pravachol) 80 mg PO QHS [facility] Last Admin: 05/19/19 22:47 Dose: 80 mg Documented by: Prochlorperazine Edisylate (Compazine Iv) 5 mg IV Q4H PRN PRN PRN Reason: Breakthrough Nausea/Vomiting Last Admin: 05/16/19 18:45 Dose: 5 mg Documented by: Psyllium Hydrophilic Mucilloid (Metamucil) 1 packet PO DAILY PRN PRN PRN Reason: Constipation Sacubitril/Valsartan (Entresto 24 Mg-26 Mg Tablet) 1 each PO BID [facility] Last Admin: 05/20/19 10:34 Dose: Not Given Documented by: Senna/Docusate Sodium (Senokot-S, Nita-Colace) 2 tablet PO BID PRN PRN Reason: Constipation Sodium Chloride () 500 ml IV BOLUS PRN PRN Reason: VASO-VAGAL PROTOCOL Sodium Chloride () 10 - 40 ml IV UD PRN PRN Reason: SALINE FLUSH Throat Lozenges (Cepacol Sore Throat Lozenge) 1 lozenge MUCOUS MEM Q2H PRN PRN PRN Reason: SORE THROAT Ticagrelor (Brilinta) 90 mg PO BID [facility] Last Admin: 05/20/19 10:40 Dose: 90 mg Documented by: Discharge Activity: May Not Drive Weight Bearing Status: Weight bearing as tolerated Call your doctor if you observe: Fever of 101 or Higher, Numbness or Tingling, Inability to urinate, Inability to have a bowel movement, Shortness of breath, Dizziness, Fainting spells, Swelling in the ankles, Chest pain, Prolonged hiccoughing, Uncontrolled pain Home Medications: Medications to take at Discharge linagliptin 5 mg tablet 5 mg PO QHS 09/30/18 pravastatin 80 mg tablet 80 mg PO DAILY #30 tab 09/30/18 carvedilol 6.25 mg tablet 6.25 mg PO BID #60 tab 11/12/18 Mirtazapine [Remeron] 7.5 mg PO QHS #30 tab 12/02/18 Aspirin [Low Dose Aspirin EC] 81 mg PO DAILY #30 05/19/19 Nitroglycerin (INPATIENT USE) [Nitrostat] 0.4 mg SUBLINGUAL Q5M PRN #30 tab.subl 05/19/19 Ticagrelor [Brilinta] 90 mg PO BID #60 tab 05/19/19 Amiodarone HCl [Cordarone] 200 mg PO BID tab 05/20/19 Amiodarone HCl [Cordarone] 200 mg PO DAILY tab 05/20/19 Amiodarone HCl [Cordarone] 200 mg PO TID #90 tab 05/20/19 Furosemide [Lasix] 40 mg PO BID #0 05/20/19 Sacubitril/Valsartan 24/26 mg [Entresto 24 mg-26 mg Tablet] 1 tab PO BID #0 05/20/19 Following Prescrptions Were Given to Patient: Ticagrelor [Brilinta] 90 mg PO BID #60 tab Transmission Status: Received by [facility] Amiodarone HCl [Cordarone] 200 mg PO TID #90 tab Transmission Status: Received by [facility] Aspirin [Low Dose Aspirin EC] 81 mg PO DAILY #30 Nitroglycerin (INPATIENT USE) [Nitrostat] 0.4 mg SUBLINGUAL Q5M PRN #30 tab.subl PRN Reason: Cardiac/Chest Pain Transmission Status: Received by [facility] Primary Care Physician: Sean Medina MD [Primary Care Provider] - Please follow up with your Primary Care Physician in: in 2 weeks Please Follow Up With: Sean Ferguson NP-C When: 06/03/19 Please Follow Up With: Esvin Scott MD When: in 3-4 weeks Medical Necessity - Tobacco Use Smoking Status: Never smoker Tobacco Use: Non-smoker Meaningful Use Info Meaningful Use Diagnoses (Choose all that apply): AMI - AMI/Post PCI/Angioplasty Aspirin given w/in 24hrs of arrival?: Yes ASA at discharge?: Yes Antiplatelet Therapy at Discharge:: Yes Statins at discharge?: Yes Alfa/ARB at discharge?: Yes Beta Lavinia at discharge?: Yes Done w/ Acute MO measure.: Yes Documented LVEF (%): 20 Code Visit Inpatient E&M: 80611 Disch Hosp
--- NOTE | 2019-05-20 13:48 | CASEMGMT ---
There was mention in nursing handoff that patient said he would shoot himself if he had to come back to [facility]. FOSTER met with patient and asked him about this comment. He told FOSTER, I am so tired of hearing about that. Just erase it from my record. SW explained to him that it cannot be erased and he needs to be careful what he says. FOSTER explained we have to take these comments seriously as we do not know who is joking and who is serious. He agreed to complete a [place] Suicide, Severity Rating scale with FOSTER. He denies wishing he were , he denied having ever thought of killing himself, he denies that he ever had intentions of suicide. 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 He loves his animals, cats and dog that he has at home and they need him to care for them. SW asked patient about the guns in his home. He started counting how many he has. He used to [place]. He denies wanting to shoot himself or anyone else. Patient continued to talk with FOSTER and share his story. He told SW about his who 5 years ago. SW listened and provided emotional support. Patient was talkative and appreciative of SW talking with him and listening to him. FOSTER asked patient if he feels safe returning home or if he would go to a fdc for rehab. He said he absolutely would not go to a fdc. FOSTER asked about home health and he declined this as well. He said his had it in the past and they treated her terribly. FOSTER called patient's daughter and told her that if she is concerned about the guns in patient's home she could remove them from his home. This would reduce the risk of him harming himself or anyone else. She told SW she is not having a police report filed for stealing his guns. She said he would file a police report if they were missing. Yancy PEREYRA MSW
[2019-05-20 13:51] LABS: Bedside Glucose 115 mg/dL (70-110)
[2019-05-20] MEDS: Lidocaine/Prilocaine HCl 5 GM Tube TOPICAL (13:56)
--- NOTE | 2019-05-20 14:46 | PN.RENAL_ITS ---
Patient Problems: Active and Suspected Problems (Last Updated 05/17/19 @ 15:23 by Mirella Singletary) STEMI (ST elevation myocardial infarction) (Acute) Subjective: No new complaints - Physical Exam Vitals/I&O's: Vital Signs Temp Pulse Resp BP Pulse Ox 97.8 F 75 16 102/38 L 94 05/20/19 13:43 05/20/19 13:43 05/20/19 13:43 05/20/19 13:43 05/20/19 13:43 Oxygen Flow Rate (L/min) 2 Oxygen Delivery Method Room Air Weight: 71.8 kg Body Mass Index (BMI) 26.9 Finger Stick Blood Glucose 123 Intake and Output for Last 24 Hours 05/18/19 05/19/19 05/20/19 23:59 23:59 23:59 Intake Total 580 / 580 1165 / 1165 120 / 120 Output Total 1750 / 1750 75 / 75 Balance -1170 / -1170 1090 / 1090 120 / 120 General: Alert, Oriented x3, Cooperative HEENT: Atraumatic, PERRLA, EOMI, Normocephalic Neck: Supple, No JVD, Negative Carotid Bruits Lungs: Clear to auscultation, Normal air movement Cardiovascular: Regular rate, No murmurs Abdomen: Bowel Sounds Present, Soft, Non Tender Extremities: No edema, Capillary Refill Less than 3 Seconds Skin: No rashes, No breakdown Musculoskeletal: No Tenderness to Palpation of Joints or Extremities Neurological: Cranial nerves II-XII grossly intact Psych/Mental Status: Normal Affect, Appropriate Laboratory Results 05/19/19 16:40: POC Glucose 122 H 05/19/19 22:55: POC Glucose 132 H 05/20/19 03:02: POC Glucose 128 H 05/20/19 06:37: POC Glucose 132 H 05/20/19 07:00: WBC 8.6, RBC 3.39 L, Hgb 11.2 L, Hct 34.3 L, MCV 101.2 H, MCH 33.0 H, MCHC 32.7, RDW Std Deviation 51.2 H, RDW Coeff of Kirsten 14.0, Plt Count 288, MPV 10.6, Immature Gran % (Auto) 0.600, Neut % (Auto) 74.8 H, Lymph % (Auto) 12.2 L, [place] % (Auto) 9.4, Eos % (Auto) 2.7, Baso % (Auto) 0.3, Absolute Neuts (auto) 6.5, Absolute Lymphs (auto) 1.05, Nucleated RBC % 0 05/20/19 07:00: Sodium 136, Potassium 3.7, Chloride 98, Carbon Dioxide 27.0, Anion Gap 11, BUN 29 H, Creatinine 6.20 H, Estim Creat Clear Calc 9.29, Est GFR (MDRD) Af Amer 11 L, Est GFR (MDRD) Non-Af 9 L, BUN/Creatinine Ratio 4.7 L, Glucose 126 H, Calcium 8.9 05/20/19 12:30: POC Glucose 115 H Current Medications Acetaminophen (Tylenol) 650 mg PO Q6H PRN PRN PRN Reason: Pain Score 1-3/10 Albuterol Sulfate (Ventolin Aerosols) 2.5 mg INHALATION Q2H PRN PRN PRN Reason: SOB/Wheezing Amiodarone HCl (Cordarone) 200 mg PO TID [facility] Stop: 05/26/19 14:01 Last Admin: 05/20/19 06:34 Dose: 200 mg Documented by: Amiodarone HCl (Cordarone) 200 mg PO BID [facility] Stop: 06/09/19 10:01 Amiodarone HCl (Cordarone) 200 mg PO DAILY [facility] Aspirin (Ecotrin) 81 mg PO DAILY@0800 [facility] Last Admin: 05/20/19 10:40 Dose: 81 mg Documented by: Atropine Sulfate () 0.5 mg IV UD PRN PRN Reason: HR <50 bpm Carvedilol (Coreg) 6.25 mg PO BID [facility] Last Admin: 05/20/19 10:34 Dose: Not Given Documented by: Dextrose (D50w Syringe) 0 gm IV X1 PRN; Protocol PRN Reason: Hypoglycemia Furosemide (Lasix) 40 mg PO 1000,1800 [facility] Last Admin: 05/20/19 10:35 Dose: Not Given Documented by: Glucagon () 1 mg IM .X1 PRN PRN Reason: Hypoglycemia Guaifenesin (Robitussin) 10 ml PO Q4H PRN PRN PRN Reason: COUGH Heparin Sodium (Beef Lung) (Heparin 500 Unit/5 Ml (100/Ml)) 500 unit IV UD PRN PRN Reason: HEPARIN FLUSH Heparin Sodium (Porcine) (Heparin Na) 5,000 unit SC Q12 [facility] Last Admin: 05/20/19 10:40 Dose: 5,000 unit Documented by: Hydralazine HCl (Apresoline Iv) 10 mg IV Q4H PRN PRN PRN Reason: SBP > 160 Insulin Human Lispro (Humalog Kwikpen (Bkc)) 0 unit SC ACHS [facility]; Protocol Last Admin: 05/20/19 12:32 Dose: Not Given Documented by: Labetalol HCl (Trandate) 5 mg IV X1 PRN PRN Reason: SBP > 160 when pulling sheath Lorazepam (Ativan) 1 mg PO Q6H PRN PRN PRN Reason: BACK SPASMS/ANXIETY Last Admin: 05/18/19 17:36 Dose: 1 mg Documented by: Melatonin (Melatonin) 3 mg PO QHS PRN PRN PRN Reason: INSOMNIA Last Admin: 05/18/19 23:00 Dose: 3 mg Documented by: Metoclopramide HCl (Reglan) 5 mg IV Q6H PRN PRN PRN Reason: NAUSEA/VOMITING Mirtazapine (Remeron) 7.5 mg PO QHS [facility] Last Admin: 05/19/19 22:47 Dose: 7.5 mg Documented by: Morphine Sulfate () 2 - 4 mg IV Q4H PRN PRN PRN Reason: Pain Score 1-10/10 Nitroglycerin (Nitrostat) 0.4 mg SUBLINGUAL Q5M PRN PRN Reason: CARDIAC/CHEST PAIN Ondansetron HCl (Zofran) 4 mg IV Q8H PRN PRN PRN Reason: NAUSEA/VOMITING Oxycodone HCl (Oxyir) 5 mg PO Q4H PRN PRN PRN Reason: Pain Score 4-5/10 Last Admin: 05/18/19 23:01 Dose: 5 mg Documented by: Pravastatin Sodium (Pravachol) 80 mg PO QHS [facility] Last Admin: 05/19/19 22:47 Dose: 80 mg Documented by: Prochlorperazine Edisylate (Compazine Iv) 5 mg IV Q4H PRN PRN PRN Reason: Breakthrough Nausea/Vomiting Last Admin: 05/16/19 18:45 Dose: 5 mg Documented by: Psyllium Hydrophilic Mucilloid (Metamucil) 1 packet PO DAILY PRN PRN PRN Reason: Constipation Sacubitril/Valsartan (Entresto 24 Mg-26 Mg Tablet) 1 each PO BID [facility] Last Admin: 05/20/19 10:34 Dose: Not Given Documented by: Senna/Docusate Sodium (Senokot-S, Nita-Colace) 2 tablet PO BID PRN PRN Reason: Constipation Sodium Chloride () 500 ml IV BOLUS PRN PRN Reason: VASO-VAGAL PROTOCOL Sodium Chloride () 10 - 40 ml IV UD PRN PRN Reason: SALINE FLUSH Throat Lozenges (Cepacol Sore Throat Lozenge) 1 lozenge MUCOUS MEM Q2H PRN PRN PRN Reason: SORE THROAT Ticagrelor (Brilinta) 90 mg PO BID [facility] Last Admin: 05/20/19 10:40 Dose: 90 mg Documented by: Medical Necessity - Tobacco Use Smoking Status: Never smoker Tobacco Use: Non-smoker Assessment/Plan All Active Problems (Last Updated 05/17/19 @ 15:23 by Mirella Singletary) STEMI (ST elevation myocardial infarction) (Acute) Non-STEMI (non-ST elevated myocardial infarction) (Acute) Unstable angina (Acute) Acute on chronic renal insufficiency (Resolved) Hyperkalemia (Resolved) Left flank pain (Resolved) Problem with dialysis access (Resolved) Uncontrollable nausea and vomiting (Resolved) End-stage renal disease. Continue dialysis as per schedule Hyperkalemia. imProved with dialysis Dyspnea. Clinically better.
[2019-05-20 17:46] LABS: Bedside Glucose 120 mg/dL (70-110)
--- NOTE | 2019-05-20 19:00 | DIALYSIS ---
Hemodialysis completed as ordered. -1000ml off. stable t/o tx. Hemostasis obtained x 8 mins. Gauze/dressing applied. Report to Nick RN at bedside.
--- NOTE | 2019-05-23 12:45 | CASEMGMT ---
Case Management DC F/u Call: DC Date: 05/20/2019 DC Diagnosis: STEMI (ST elevation myocardial infarction) (Acute) DC Disposition: Home Lace/Strata: 02/22 Called patient listed cell phone number on demographics, patient answered and this physician underwriter introduced self and role. Patient states that he is not feeling good and feeling SOB, legs are weak and losing balance, states did not go to HD today because he was not feeling good and always feels worse after HD. States was on the floor from 5-7pm last night. States that he is not sure of all the medications that we had him on in the hospital that is doing this and that he has an appointment with his PCP today to get all his medications straightened out. This physician underwriter voiced concern about what patient mentioned above and returning to hospital- patient replied would not come back unless it was a life or situation. This physician underwriter asked if he felt he needed HH PT and patient replied no. States his Dtr lives a block away and has has been checking on him. Confirmed filled and taking his DC medication, denies any questions regarding ACI or f/u. States that if he needs to after seeing PCP will f/u with manuscript editor Dr Dan and Dr Dan and PCP work closely with each other. Denies further questions with medications and states that is why he is going to his PCP today to get it all figured out. Thanked patient for receiving care at [facility] and ended conversation. Kendell Capellan RNCM
--- NOTE | 2019-05-23 14:57 | CASEMGMT ---
Social Work Note FOSTER received call from Saul with [facility]. Saul asked if pt has discharged from [facility]. FOSTER reviewed chart, pt was discharged home on 05/20/2019. FOSTER updated Saul. Patricia Harding MSW, SENIOR GL ACCOUNTANT
== END 2019-05-20 19:15 | disposition home or self-care (01) | DRG 246 ==
LOC: ED 15:53 → ICU 05-17 07:22 → PCU 05-19 12:10
PROVIDERS: Family Medicine; Internal Medicine; Internal Medicine Cardiovascular Disease; Admitting Provider Internal Medicine Cardiovascular Disease; Emergency Provider Emergency Medicine; PCP Family Medicine; Referring Provider Internal Medicine Cardiovascular Disease; Visit Provider Internal Medicine Cardiovascular Disease
DX: I21.29 ST elevation (STEMI) myocardial infarction involving other sites (principal); N18.6 End stage renal disease; I50.23 Acute on chronic systolic (congestive) heart failure; I13.2 Hypertensive heart and chronic kidney disease with heart failure and with stage 5 chronic kidney disease, or end stage renal disease; F03.91 Unspecified dementia, unspecified severity, with behavioral disturbance; F05 Delirium due to known physiological condition; F32.9 Major depressive disorder, single episode, unspecified; E11.22 Type 2 diabetes mellitus with diabetic chronic kidney disease; I25.2 Old myocardial infarction; I27.29 Other secondary pulmonary hypertension; I24.8 Other forms of acute ischemic heart disease; I25.5 Ischemic cardiomyopathy; I34.0 Nonrheumatic mitral (valve) insufficiency; I48.0 Paroxysmal atrial fibrillation; I25.10 Atherosclerotic heart disease of native coronary artery without angina pectoris; D63.1 Anemia in chronic kidney disease; E78.5 Hyperlipidemia, unspecified; Z66 Do not resuscitate; Z91.14 Patient's other noncompliance with medication regimen; Z95.5 Presence of coronary angioplasty implant and graft; Z99.2 Dependence on renal dialysis; Z79.02 Long term (current) use of antithrombotics/antiplatelets; Z79.84 Long term (current) use of oral hypoglycemic drugs; Z79.899 Other long term (current) drug therapy
CPT/HCPCS: 36415; 71045; 80048; 80053; 80061; 82140; 82607; 82746; 82962; 83036; 83735; 84100; 84443; 84484; 85025; 85347; 90937; 92928; 92941; 93005; 93306; 93458; 97162; 97166; 99152; 99153; 99285; J0153; J7030; J7040; Q9967; A4216; C1725; C1769; C1874; C1887; C1894; C9600; C9606; G0257; J1327; J1940; J2405

== ENCOUNTER 2019-05-29 10:31 | Emergency (ER) | payer MEDICARE, MEDICAID, SELFPAY ==
[2019-05-16 17:39] VITALS: BMI 26.9
[2019-05-18 11:05] VITALS: BMI 28.3
[2019-05-29] VITALS (9 sets, daily range): BP systolic 133–172; BP diastolic 86–114; PULSE 102–117; RESP 17–28; TEMP 36.6–36.9; O2SAT 93–100; BMI 26.8
--- NOTE | 2019-05-29 10:34 | EKG12_ITS ---
Test Reason : CP/SOB Blood Pressure : / mmHG Vent. Rate : 117 BPM Atrial Rate : 117 BPM P-R Int : 236 ms QRS Dur : 152 ms QT Int : 330 ms P-R-T Axes : 000 102 -29 degrees QTc Int : 460 ms Sinus tachycardia Right bundle branch block Abnormal ECG Confirmed by MARIO KHAN MD ([id number]), editor at large LAITH OSULLIVAN ([id number]) on 05/30/2019 3:21:52 PM Referred By: DARREL Confirmed By:MARIO KHAN MD
--- NOTE | 2019-05-29 10:34 | RAD_ITS ---
STUDY: X-RAY CHEST REASON FOR EXAM: Male, 73 years old. Sob TECHNIQUE: Single AP portable view of the chest. COMPARISON: 05/16/2019 FINDINGS: There is still blunting of the right costophrenic angle. There is increased interstitial markings in the right lung base. There is moderate cardiac enlargement. Normal mediastinum and evelio. Normal visualized pulmonary arteries. There is atherosclerotic calcification of the aortic arch with tortuosity. There are diffuse degenerative changes of the visualized thoracic spine. Normal visualized ribs, clavicles, and shoulders. There is no demonstrated abnormality of the visualized soft tissue structures of the upper abdomen. RAD/Chest 1 View (Portable) IMPRESSION: Findings are suspicious for persistent right side subpulmonic effusion. Recommend follow-up CT scan of the chest when appropriate. Right lower lobe atelectasis. Mild cardiomegaly. Electronically Signed: Mary Honeycutt MD at 11:26 EDT Tel , Service support ,
[2019-05-29] MEDS: Ipratropium/Albuterol Sulfate 3 ML AMPUL.NEB INHALATION ×2 (10:41→12:34)
--- NOTE | 2019-05-29 10:43 | ED.DCSUM_ITS ---
History of Present Illness Chief Complaint: Shortness of Breath Informant: Patient Onset: Today Maximum Severity: Mild Narrative: History of end-stage renal disease Thursday dialysis, history of multiple MIs, recent DC 1 week ago with replacement of stent at [facility]. Reports he began having a sense of trouble taking a full breath mild chest heaviness today he came in for evaluation. His symptoms are resolved, he has had a chronic cough for months intimately productive, he did have dialysis last Thursday full session he makes about a quarter of a cup of urine a day and that is been normal he is resting company bed no distress he denies a history of COPD Past Medical History - Allergies and Home Meds Allergies/Adverse Reactions: Allergies codeine Allergy (Verified 05/29/19 10:32) Itching Primary Care Physician: Sean Medina MD [Primary Care Provider] - Past Medical History: - Surgical History: angioplasty - PCI x 11, most recently 11/2018., - - Significant PCI history, most recently 11/2018 with total PCI x 11 per patient report, 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 Smoking Status: Never smoker - Family History Maternal Family History: Family History (Last Reviewed 09/30/18 @ 13:10 by Mirella Singletary) Mother Breast cancer Myocardial infarction CAD (coronary artery disease) Father Colon cancer Hypertension Myocardial infarction Other Family history of hypertension Family History: Reports: Cancer, Heart Disease, Hypertension Paternal Family History: Family History (Last Reviewed 09/30/18 @ 13:10 by Mirella Singletary) Mother Breast cancer Myocardial infarction CAD (coronary artery disease) Father Colon cancer Hypertension Myocardial infarction Other Family history of hypertension Family History: Reports: Cancer, Heart Disease, Hypertension Review of Systems ROS: - Clues as above General: Denies: Chills, Fever, Sweats Eyes: Denies: Visual changes - bilaterally, Diplopia ENT: Denies: Rhinorrhea, Sore throat Cardiovascular: Reports: Chest pain. Denies: Palpitations Respiratory: Reports: Dyspnea, Cough. Denies: Dyspnea on exertion Gastrointestinal: Denies: Abdominal pain, Nausea, Vomiting, Diarrhea, Melena, Hematochezia Genitourinary: Denies: Dysuria, Hematuria, Frequency Musculoskeletal: Denies: Back pain, Extremity Pain Skin: Denies: Rash, Wounds Neurological: Denies: Headache, Weakness, Numbness Physical Exam Vital Signs/Narrative: Vital Signs Temp Pulse Resp BP Pulse Ox 05/29/19 10:39 97.8 F 113 H 22 H 172/114 H 97 05/29/19 10:37 114 H 27 H 94 05/29/19 10:32 97.8 F 117 H 28 H 172/114 H 98 General: Well nourished, Well developed, No Acute Distress Head: Normocephalic, Atraumatic Eyes: Perrl, EOMI ENT: Moist mucous membranes, No rhinorrhea Neck: Supple, Nontender Cardiovascular: Regular rate, Regular rhythm, No murmurs Respiratory: No distress, CTA bilaterally, Chest nontender, Diminished, Decreased Air Movement Abdomen: Soft, Nontender, Nondistended, Normal bowel sounds Back: Nontender, Normal Inspection Extremities: Nontender, No edema Skin: Normal color, No rash Neurological: Alert, Oriented x3, Cranial nerves II-XII grossly intact, Normal Strength, Normal Sensation Psychological: Normal affect, Normal Mood Diagnostic/Tx/Re-eval - Medical Decision Making The differential for the patient's rather extensive his EKG shows sinus rhythm rate 117 with a right bundle branch block pattern no obvious acute injury pattern old EKG pending at this time screening labs full ED therapy work-up Patient's troponin is slightly elevated at 0.8 it was quite high before he has renal failure it is coming down, the BNP is elevated as well, his chest x-ray shows appears to be a chronic right-sided effusion, on reevaluation the patient's resting company in the bed his vital signs are unremarkable He states the aerosols helped him quite a bit he no longer feels short of breath, we discussed his complex history his recent DC the differential that would include DC other cardiovascular disorders that could lead to , we discussed inpatient versus outpatient management given all the above the patient adamantly declines admission he states he believes his issues are related to the harsh coughing he has had for months he has been evaluated for the cough he has been on antibiotics nothing seems to help except the aerosols which were 2 duo nebs seem to improve his symptoms, he does not wish to be admitted he prefers outpatient management he is scheduled to be seen his dialysis center tomorrow and he has other outpatient appointments with his providers this week, he will be given a Proventil inhaler here in the emergency department he has been strict return for change in symptoms keep all of his appointments with outpatient providers and return for change in symptomatology. Did speak with cardiology transitional kindergarten teacher to make them aware of the visit and the patient's desires Home stable patient declined admission Final impression is dyspnea, chronic cough, end-stage renal disease, recent DC ED Disposition - Plan for ED Patient: Diagnosis: Non-STEMI (non-ST elevated myocardial infarction) Instructions: BRONCHITIS, No Antibiotic (Adult), Copd Flare Prescriptions: Albuterol Inhaler [Ventolin Hfa] 1 - 2 puff INHALATION Q4H PRN PRN #1 inhaler PRN Reason: Wheezing Prescription Printed Referrals: Sean Medina MD [Primary Care Provider] - Additional Instructions: Keep all of your appointments with your outpatient providers and return for change in symptoms
[2019-05-29] MEDS: Aspirin 81 MG TAB.CHEW 324 MG PO (10:51)
[2019-05-29 12:10] LABS: Absolute Lymphocyte Count 0.67 X10^3/uL (0.83-4.51); Absolute Neutrophil Count 11.2 X10^3/uL (2.0-7.7); Basophil# 0.02 X10^3/uL; Basophil% 0.2 % (0-1); Eosinophil# 0.04 X10^3/uL; Eosinophils% 0.3 % (0-5); Hematocrit 32.8 % (40-54); Hemoglobin 10.5 g/dL (13.0-16.5); Lymphocyte # 0.67 X10^3/ul (4.0); Lymphocyte % 5.2 % (19-41); Mean Corpuscular Hgb 33.4 pg (27.0-32.0); Mean Corpuscular Volume 104.5 fL (80-94); Mean Platelet Vol. 10.9 fl (6.2-12.0); Monocyte# 0.72 X10^3/uL; Monocyte% 5.6 % (0-10); NRBC Flagged by Analyzer 0 % (0-5); Neutrophil # 11.24 X10^3/uL (2.7-7.7); Neutrophil % 88.1 % (47-70); POSITIVE COUNT YES; RBC Distribution Width CV 14.6 % (11.6-14.6); RBC Distribution Width SD 54.9 fl (35.1-43.9); Red Blood Count 3.14 M/mm3 (4.6-6.2); White Blood Count 12.8 K/mm3 (4.4-11.0)
[2019-05-29 12:13] LABS: Differential Indicated SCAN CRITERIA MET
[2019-05-29 12:20] LABS: Anion Gap 9 (5-15); BNP,B-Type NATRIURETIC PEPTIDE > 5000.0 pg/mL (0-100); BUN 23 mg/dL (7-18); BUN/Creat Ratio 3.4 RATIO (10-20); Calcium,Total 9.1 mg/dL (8.5-10.1); Chloride 96 mmol/L (98-107); Creatinine, Serum 6.79 mg/dL (0.70-1.30); EST Glomerular Filtration Rate 9 mL/min (>60); Est Glom Filt Rate - Afr Amer 10 mL/min (>60); Estimated Creatinine Clearance 8.79 ml/min; Glucose 191 mg/dL (74-106); Potassium 4.6 mmol/L (3.5-5.1); Sodium Level 134 mmol/L (136-145)
[2019-05-29 13:24] LABS: Platelet Estimate ADEQUATE (ADEQ); Red Cell Morphology NORM C+C NORMAL (NORM C&C)
--- NOTE | 2019-05-29 13:44 | ED.RN ---
REVIEWED D/C INSTRUCTIONS, FOLLOW UP CARE, PRESCRIPTIONS, AND S/S THAT WOULD WARRANT A RETURN TO THE ED WITH PT. PT VERBALIZED AN UNDERSTANDING AND DENIES FURTHER QUESTIONS FOR THIS RN. PT SKIN P/W/D, RESP EVEN AND UNLABORED, PT A&O X 3, NO DISTRESS NOTED. PT ASSISTED OUT OF ED IN WHEELCHAIR.
== END 2019-05-29 13:45 | disposition home or self-care (01) ==
PROVIDERS: Emergency Provider Emergency Medicine; PCP Family Medicine
DX: R06.02 Shortness of breath (principal); R05 Cough; I25.2 Old myocardial infarction; N18.6 End stage renal disease; Z99.2 Dependence on renal dialysis; I45.10 Unspecified right bundle-branch block
CPT/HCPCS: 36415; 71045; 80048; 83880; 84484; 85025; 93005; 94640; 99285; A4216

== ENCOUNTER 2019-05-30 14:12 | Inpatient (IN) | payer MEDICARE, MEDICAID, SELFPAY ==
[2019-05-18 11:05] VITALS: BMI 28.3
[2019-05-29 10:32] VITALS: BMI 26.8
[2019-05-30] VITALS (21 sets, daily range): BP systolic 112–144; BP diastolic 72–97; PULSE 88–105; RESP 17–27; TEMP 36.3–37; O2SAT 96–100; BMI 25.9; BMI 27.6
--- NOTE | 2019-05-30 14:52 | RAD_ITS ---
STUDY: X-RAY CHEST REASON FOR EXAM: Male, 73 years old. WEAKNESS, SHORTNESS OF BREATH, DIZZINESS TECHNIQUE: AP and lateral views of the chest. COMPARISON: Comparison is made with prior study of May 29, 2019. FINDINGS: EKG electrodes are seen. Stable blunting of the right costophrenic angle with increased markings at the right lung base suggestive of either atelectasis and/or early infiltrate. There is mild cardiac enlargement. There is evidence of a prior coronary artery stenting. Normal mediastinum and evelio. Normal visualized pulmonary arteries. There is atherosclerotic tortuosity of the aortic arch and descending thoracic aorta. There are diffuse degenerative changes of the visualized thoracic spine. Normal visualized ribs, clavicles, and shoulders. There is no demonstrated abnormality of the visualized soft tissue structures of the upper abdomen. RAD/Chest PA and Lateral IMPRESSION: Stable examination with blunting of the right costophrenic angle and increased markings at the right lung base suggestive of atelectasis. Electronically Signed: Mando Zamorano, at 15:45 EDT , Service support ,
--- NOTE | 2019-05-30 14:52 | EKG12_ITS ---
Test Reason : Blood Pressure : / mmHG Vent. Rate : 099 BPM Atrial Rate : 096 BPM P-R Int : 000 ms QRS Dur : 166 ms QT Int : 440 ms P-R-T Axes : 000 099 -37 degrees QTc Int : 564 ms Wide QRS rhythm : Consider Sinus Rhythm with First Degree AV Block Right bundle branch block T wave abnormality, consider lateral ischemia Abnormal ECG Confirmed by TAMIKA EDEN, LEONCIO ([id number]), subeditor KISHORE QUINTERO ([id number]) on 06/01/2019 9:37:41 AM Referred By: KAREN Confirmed By:LEONCIO LUNDBERG MD
[2019-05-30 14:59] LABS: Absolute Lymphocyte Count 0.72 X10^3/uL (0.83-4.51); Absolute Neutrophil Count 23.4 X10^3/uL (2.0-7.7); Basophil# 0.04 X10^3/uL; Basophil% 0.2 % (0-1); Eosinophil# 0.05 X10^3/uL; Eosinophils% 0.2 % (0-5); Hematocrit 29.9 % (40-54); Hemoglobin 9.7 g/dL (13.0-16.5); Lymphocyte # 0.72 X10^3/ul (4.0); Lymphocyte % 2.8 % (19-41); Mean Corp Hgb Conc 32.4 g/dL (32-36); Mean Corpuscular Hgb 33.8 pg (27.0-32.0); Mean Corpuscular Volume 104.2 fL (80-94); Mean Platelet Vol. 11.8 fl (6.2-12.0); Monocyte# 1.11 X10^3/uL; Monocyte% 4.3 % (0-10); NRBC Flagged by Analyzer 0 % (0-5); Neutrophil # 23.44 X10^3/uL (2.7-7.7); Neutrophil % 91.5 % (47-70); POSITIVE DIFFERENTIAL YES; Platelet Count 224 K/mm3 (150-450); RBC Distribution Width CV 14.6 % (11.6-14.6); RBC Distribution Width SD 55.3 fl (35.1-43.9); Red Blood Count 2.87 M/mm3 (4.6-6.2); White Blood Count 25.6 K/mm3 (4.4-11.0)
[2019-05-30 15:00] LABS: Differential Indicated SCAN CRITERIA MET
[2019-05-30] MEDS: Ipratropium/Albuterol Sulfate 3 ML AMPUL.NEB INHALATION (15:02)
--- NOTE | 2019-05-30 15:03 | ED.DCSUM_ITS ---
History of Present Illness Chief Complaint: Shortness of Breath Informant: Patient Onset: Days Context: Gradual Onset Timing: Continuous Current Severity: Moderate Maximum Severity: Severe Narrative: The patient is a 73-year-old male with medical history significant for coronary vascular disease status post recent stenting 10 days ago, end-stage renal disease on dialysis, peripheral vascular disease status post amputation the presents to the emergency department with increasing dyspnea. The patient was hospitalized for ST elevation myocardial infarction. He had a stent placed. He states he is been doing well, but over the past 2 or 3 days, he is had worsening dyspnea. He states he is had a scant cough that has become more productive. He denies any fevers or chills. He states at rest, he feels okay, but if he walks any distance, he states that he gets lightheaded, severely dyspneic, and feels like he is going to pass out. He denies any chest pain. 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 Smoking Status: Never smoker - Family History Maternal Family History: Family History (Last Reviewed 09/30/18 @ 13:10 by Mirella Singletary) Mother Breast cancer Myocardial infarction CAD (coronary artery disease) Father Colon cancer Hypertension Myocardial infarction Other Family history of hypertension Family History: Reports: Cancer, Heart Disease, Hypertension Paternal Family History: Family History (Last Reviewed 09/30/18 @ 13:10 by Mirella Singletary) Mother Breast cancer Myocardial infarction CAD (coronary artery disease) Father Colon cancer Hypertension Myocardial infarction Other Family history of hypertension Family History: Reports: Cancer, Heart Disease, Hypertension Review of Systems General: Denies: Chills, Fever, Sweats Eyes: Denies: Visual changes - bilaterally, Diplopia ENT: Denies: Rhinorrhea, Sore throat Cardiovascular: Denies: Chest pain, Palpitations Respiratory: Reports: Dyspnea, Cough, Dyspnea on exertion Gastrointestinal: Denies: Abdominal pain, Nausea, Vomiting, Diarrhea, Melena, Hematochezia Genitourinary: Denies: Dysuria, Hematuria, Frequency Musculoskeletal: Denies: Back pain, Extremity Pain Skin: Denies: Rash, Wounds Neurological: Denies: Headache, Weakness, Numbness Physical Exam Vital Signs/Narrative: Vital Signs Temp Pulse Resp BP Pulse Ox 05/30/19 14:44 98.3 F 99 20 H 118/85 H 99 05/30/19 14:43 99 17 118/85 H 99 05/30/19 14:16 98.3 F 98 17 118/85 H 100 Inital Vital Signs reviewed: Yes General: Well nourished, Well developed, No Acute Distress Head: Normocephalic, Atraumatic Eyes: Perrl, EOMI ENT: Moist mucous membranes, No rhinorrhea Neck: Supple, Nontender Cardiovascular: Regular rate, Regular rhythm, No murmurs Respiratory: No distress, Chest nontender, Rales, Diminished Abdomen: Soft, Nontender, Nondistended, Normal bowel sounds Back: Nontender, Normal Inspection Extremities: Nontender, No edema Skin: Normal color, No rash Neurological: Alert, Oriented x3, Cranial nerves II-XII grossly intact, Normal Strength, Normal Sensation Psychological: Normal affect, Normal Mood Diagnostic/Tx/Re-eval Clinical Impression(s) from Imaging Studies Chest X-Ray 05/30/19 14:52 IMPRESSION: Stable examination with blunting of the right costophrenic angle and increased markings at the right lung base suggestive of atelectasis. Electronically Signed: Mando Zamorano, at 15:45 EDT , Service support , Liver Ultrasound 05/30/19 15:34 IMPRESSION: There is a thickened appearance of the gallbladder wall which may be partially contracted. On one image there is a suggestion that there may be pericholecystic fluid. There is no definitive evidence of gallstones. This may represent trace ascites. The sonographic Bowles''s sign is described as negative. Cannot include or exclude chronic cholecystitis. Other imaging may be warranted if pain persists. Partially visualized small right effusion. Right renal cortical thinning which may be associated with underlying medical renal disease. Electronically Signed: Mary Honeycutt MD at 16:59 EDT Tel , Service support , Abnormal Lab Results 05/30/19 05/30/19 05/30/19 14:42 14:42 14:42 WBC 25.6 H RBC 2.87 L Hgb 9.7 L Hct 29.9 L MCV 104.2 H MCH 33.8 H MCHC 32.4 RDW Std Deviation 55.3 H RDW Coeff of Kirsten 14.6 Plt Count 224 MPV 11.8 Immature Gran % (Auto) 1.000 H Neut % (Auto) 91.5 H Lymph % (Auto) 2.8 L Mcminn % (Auto) 4.3 Eos % (Auto) 0.2 Baso % (Auto) 0.2 Absolute Neuts (auto) 23.4 H Absolute Lymphs (auto) 0.72 L Nucleated RBC % 0 Differential Comment SCANNED Platelet Estimate ADEQUATE Hypochromasia RARE Macrocytosis 1+ Sodium 135 L Potassium 5.9 H Chloride 95 L Carbon Dioxide 16.0 L Anion Gap 24 H BUN 41 H Creatinine 9.07 H* Estim Creat Clear Calc 6.58 Est GFR (MDRD) Af Amer 7 L Est GFR (MDRD) Non-Af 6 L BUN/Creatinine Ratio 4.5 L Glucose 173 H Lactic Acid Calcium 9.1 Total Bilirubin 2.80 H AST 2358 H ALT 881 H Alkaline Phosphatase 93 Troponin I 0.691 H* B-Natriuretic Peptide > 5000.0 H Total Protein 8.0 Albumin 3.0 L Globulin 5.0 H Albumin/Globulin Ratio 0.6 L 05/30/19 16:05 WBC RBC Hgb Hct MCV MCH MCHC RDW Std Deviation RDW Coeff of Kirsten Plt Count MPV Immature Gran % (Auto) Neut % (Auto) Lymph % (Auto) Mcminn % (Auto) Eos % (Auto) Baso % (Auto) Absolute Neuts (auto) Absolute Lymphs (auto) Nucleated RBC % Differential Comment Platelet Estimate Hypochromasia Macrocytosis Sodium Potassium Chloride Carbon Dioxide Anion Gap BUN Creatinine Estim Creat Clear Calc Est GFR (MDRD) Af Amer Est GFR (MDRD) Non-Af BUN/Creatinine Ratio Glucose Lactic Acid 12.7 H* Calcium Total Bilirubin AST ALT Alkaline Phosphatase Troponin I B-Natriuretic Peptide Total Protein Albumin Globulin Albumin/Globulin Ratio - Medical Decision Making The patient presents with exertional dyspnea and generalized malaise. I did review his labs from yesterday. This did seem to be at his baseline. His chest x-ray showed a scant pleural effusion. He is not hypoxic, tachypneic, or ta chycardic. Broad metabolic work-up was pursued. X-ray was repeated and is unchanged. His EKG does not show evidence of acute ischemia. Screening labs show a market leukocytosis, evidence of his chronic renal disease, mild hyperkalemia without EKG changes, but also new evidence of acute liver dysfunction. Ultrasound was obtained of the right upper quadrant which showed some trace fluid, questionable cholecystitis versus ascites. The patient has no significant pain on examination. However, his lactic acid was markedly elevated at 12.7, but in light of his new liver dysfunction I am unsure if this represents systemic hypoperfusion versus his liver dysfunction. I did discuss his case with Dr. Tanner, the automatic transmission mechanic on-call. He agreed with plan to cover with renally dosed Zosyn at least until definitive diagnosis can be achieved. Again, the patient looks well. Even in light of his shock liver, he does not seem systemically ill. Noncontrast CT of the abdomen was obtained. I do not feel that his symptoms represent a mesenteric ischemia or other dangerous process as he really has no abdominal pain. He is obviously at high risk for septicemia or bacteremia because of his underlying renal disease, along with his recent cardiac intervention. At this point, the patient will be admitted to the intensive care unit. Impression 1. Exertional dyspnea 2. Shock liver 3. Lactic acidosis ED Disposition - Plan for ED Patient:
[2019-05-30 15:19] LABS: Differential Comment SCANNED; Hypochromasia RARE; Macrocytosis 1+; Platelet Estimate ADEQUATE (ADEQ)
--- NOTE | 2019-05-30 15:34 | US_ITS ---
STUDY: ABDOMINAL ULTRASOUND - RIGHT UPPER QUADRANT REASON FOR VISIT: Male, 73 years old RUQ PAIN TECHNIQUE: Ultrasound evaluation of the right upper quadrant was performed with real-time and static mejía-scale imaging. TECHNICAL QUALITY: Adequate. COMPARISON: June 10, 2015 CT scan abdomen and pelvis FINDINGS: There is a small right pleural effusion partially visualized. Liver: The liver measures 18 cm. There is normal echogenicity of the liver. The bile ducts are within normal limits. Limited Doppler ultrasound is provided of the liver. Gallbladder: Normal distended gallbladder. The gallbladder wall measures 7.1 mm. There is a negative sonographic Bowles''s sign. There is no pericholecystic fluid. There are no gallstones. Common Bile Duct (C.B.D.): The common bile duct measures 3.8 mm. Pancreas: Normal size of the head, body and tail of the pancreas. There is normal echogenicity of the pancreas. There is no demonstrated pancreatic mass or cyst. Right Kidney: Normal size of the right kidney. The right kidney measures 9.0 x 5.4 x 4.2 cm. There is thinning of the renal cortex. The right cortex measures 0.5 cm. There is no demonstrated renal mass or cyst. There is no right hydronephrosis. US/Liver IMPRESSION: There is a thickened appearance of the gallbladder wall which may be partially contracted. On one image there is a suggestion that there may be pericholecystic fluid. There is no definitive evidence of gallstones. This may represent trace ascites. The sonographic Bowles''s sign is described as negative. Cannot include or exclude chronic cholecystitis. Other imaging may be warranted if pain persists. Partially visualized small right effusion. Right renal cortical thinning which may be associated with underlying medical renal disease. Electronically Signed: Mary Honeycutt MD at 16:59 EDT Tel , Service support ,
[2019-05-30 15:39] LABS: ALB/GLOB Ratio 0.6 RATIO (0.9-2.4); AST(SGOT) 2358 U/L (15-37); Alanine Aminotransfer ALT/SGPT 881 U/L (16-61); Alkaline Phosphatase 93 U/L (45-117); Anion Gap 24 (5-15); BUN 41 mg/dL (7-18); BUN/Creat Ratio 4.5 RATIO (10-20); Calcium,Total 9.1 mg/dL (8.5-10.1); Chloride 95 mmol/L (98-107); EST Glomerular Filtration Rate 6 mL/min (>60); Est Glom Filt Rate - Afr Amer 7 mL/min (>60); Estimated Creatinine Clearance 6.58 ml/min; Glucose 173 mg/dL (74-106); Potassium 5.9 mmol/L (3.5-5.1); Sodium Level 135 mmol/L (136-145)
[2019-05-30 15:56] LABS: Creatinine, Serum 9.07 mg/dL (0.70-1.30)
[2019-05-30 16:16] LABS: BNP,B-Type NATRIURETIC PEPTIDE > 5000.0 pg/mL (0-100)
[2019-05-30 16:56] LABS: Lactic Acid 12.7 mmol/L (0.4-1.9)
--- NOTE | 2019-05-30 17:14 | CT_ITS ---
STUDY: CT ABDOMEN AND PELVIS WITHOUT CONTRAST REASON FOR EXAM: Male, 73 years old. LACTIC ACID,INCREASED SHORTNESS OF BREATH -- RECENT STENT INSERTION -- HX-HTN,NM, DIAB, CKD, DIALYSIS RADIATION DOSAGE (If Supplied By Facility): CTDIvol = ( 10.12 ) mGy, DLP = ( 455.17 ) mGycm TECHNIQUE: Transaxial images were obtained from the dome of the diaphragm to the symphysis pubis without oral contrast, and without intravenous contrast. Sagittal and coronal images were reconstructed. Individualized dose optimization techniques were used for this CT. COMPARISON: Right upper quadrant ultrasound 1613 hours; CT abdomen and pelvis without contrast June 10, 2015 FINDINGS: There is a small to moderate size, dependent right pleural effusion and minimal atelectasis in the adjacent posterior medial right lung base. The heart is borderline to mildly enlarged. There are atherosclerotic calcifications of the coronary arteries. Occasional focal calcifications are again seen in the normal size liver. The portal vein diameter is 14 mm. Assuming the patient has not had recent fusion of IV contrast, increased density within the lumen of the gallbladder may reflect lithogenic sludge. No apparent thickening of the gallbladder wall or pericholecystic fluid to suggest cholecystitis. Common bile duct diameter is 5 mm. There are several punctate benign calcified granulomata of the spleen. Normal pancreas. Normal bilateral adrenal glands. There is moderate cortical atrophy of the right kidney, consistent with chronic medical renal disease. There is moderate cortical atrophy of the left kidney, consistent with chronic medical renal disease. No hydronephrosis. Normal visualized stomach. Normal small intestine. Normal colon. The appendix is visualized and appears normal. There is mild atherosclerotic calcification of the abdominal aorta with elongation and tortuosity, but without a demonstrated aneurysm. Normal inferior vena cava. Normal retroperitoneum. Normal urinary bladder. Normal visualized prostate gland. Normal abdominal wall. There are diffuse degenerative changes of the visualized spine, with particular progression of degenerative disc height narrowing at L2-3 resulting in an anterior fusion of the vertebra. Bridging anterior osteophytes at the bilateral sacroiliac joints again noted. CT/Abdomen/Pelvis without Cont IMPRESSION: 1. Atherosclerotic vascular calcifications noted. No demonstrated aortic aneurysm. The heart is borderline to mildly enlarged. 2. Small to moderate right pleural effusion with minimal atelectasis in the right lung base. Infection not excluded. 3. Moderate cortical atrophy of the bilateral kidneys now present. No hydronephrosis. 4. Possible sludge in the gallbladder. No sign of acute cholecystitis. If clinically indicated, this can be further characterized with ultrasound. 5. Occasional calcified granulomata again seen in the liver and spleen. 6. Degenerative changes again seen in the spine and bilateral sacroiliac joints. There is been particular progression of degenerative disc height narrowing at L2-3 with anterior fusion of the vertebra at that level. Electronically Signed: Richard Lima MD at 17:50 EDT , Service support ,
[2019-05-30 18:08] LABS: Lipase 68 U/L (73-393)
--- NOTE | 2019-05-30 18:16 | HP.PCM_ITS ---
Problem List (1) Elevated LFTs Status: Acute (2) STEMI (ST elevation myocardial infarction) Status: Inactive Qualifiers: Involved coronary artery: unspecified coronary artery Qualified Code(s): I21.3 - ST elevation (STEMI) myocardial infarction of unspecified site (3) Non compliance w medication regimen Status: Chronic (4) Depression Status: Chronic Qualifiers: Depression Type: unspecified Qualified Code(s): F32.9 - Major depressive disorder, single episode, unspecified (5) Presence of stent in coronary artery Status: Chronic Comment: thrombectomy with PTCA with HASMUKH to proximal, mid and distal RCA 03/03; PTCA with stenting to mid & distal RCA 07/05, PTCA of proximal LAD 07/05; Successful PTCA/HASMUKH of the of proxima RCA in stent restenosis, utilizing a 2.0 x 12 Angiosculpt, followed by a 3.0 x 33 Elunira HASMUKH; 85%-->0%, no dissection.Successful PTCA/HASMUKH of the mid LPL branch of the LCX with a 3.0 x 16 Promus Synergy; 75%-->0%, no dissection; Successful PTCA/HASMUKH of the mid LCX with a 2.75 x 16 Promus Synergy; 75%-->0%, no dissection. No PCI of smal OM branch perfomed due to small vessel disease. 05/20/18; Successful PTCA/HASMUKH proximal LCX with a 3.0 x 16 Promus Synergy, 85%-->0%, no dissection. Successful PTCA/HASMUKH mid RCA ISR with a 2.5 x 10 Angiosculpt, followed with a 3.0 x 38 Promus Synergy, post dilated with a 3.0 and 3.5 x 12 NC balloon; 85%-->0%, no dissection. 10/28/18; Successful PTCA of stent thrombosis/restenosis in mid RCA. per cath 12/01/18 Successful PTCA/HASMUKH emergent heparin/Integrilin bolus assisted PCI to mid LCX with a 2.5 x 16 Promus Synergy, post dilated with a 3.0 x 8 NC balloon using double wire technique; 100%-->0%, no dissection. Successful PTCA/HASMUKH to mid RCA with a 2.5 x 10 Angiosculpt, followed by a 2.5 x 14 Resolute, post dilated with a 3.0 x 8 NC baloon; 90%-->0%, no dissection. Successful PTCA/HASMUKH PCI with 2.5 x 10 Angiosculpt to proximal RCA, followed with a 3.0 x 15 Resolute HASMUKH, post dilated throughout with a 3.0 x 8 NC Balloon; 75%-->0%, no dissection. per cath 05/16/19 (6) Essential hypertension Status: Chronic (7) ESRD (end stage renal disease) on dialysis Status: Chronic (8) Old myocardial infarction Status: Chronic Comment: Inferior [place], [place] 07/05 (9) retirement use of drug Status: Chronic Comment: Antihyperlipidemic (10) Family history of hypertension Status: Chronic (11) Other secondary pulmonary hypertension Status: Chronic (12) Subendocardial ischemia Status: Chronic (13) Ischemic cardiomyopathy Status: Chronic (14) Nonrheumatic mitral valve regurgitation Status: Chronic (15) Rheumatic tricuspid insufficiency Status: Chronic (16) Paroxysmal atrial fibrillation Status: Chronic (17) Atherosclerotic heart disease of [place] coronary artery without angina pectoris Status: Chronic Qualifiers: [place] vs. transplanted heart: [place] heart Qualified Code(s): I25.10 - Atherosclerotic heart disease of [place] coronary artery without angina pectoris Comment: PTCA/HASMUKH to proximal RCA, mid LPL branch of the LCx, in mid LCx in April 2017; angioplasty and PCI to mid and distal RCA in 2014; thrombectomy and PCI to proximal, mid, and distal RCA in 2011; (18) Type II diabetes mellitus Status: Chronic Qualifiers: Diabetes mellitus care home insulin use: without continuous churn buttermaker use Diabetes mellitus complication status: with circulatory complication Diabetes mellitus complication detail: with other circulatory complications Qualified Code(s): E11.59 - Type 2 diabetes mellitus with other circulatory complications (19) Hyperlipidemia associated with type 2 diabetes mellitus Status: Chronic (20) Non-STEMI (non-ST elevated myocardial infarction) Status: Chronic (21) Unstable angina Status: Inactive (22) HLD (hyperlipidemia) Status: Chronic Qualifiers: Hyperlipidemia type: unspecified Qualified Code(s): E78.5 - Hyperlipidemia, unspecified (23) Near syncope Status: Acute History of Present Illness Date of Admission: 05/30/19 Chief Complaint: Dyspnea on exertion The patient is a 73 year old M with multiple comorbidities including coronary artery disease status post PCI, recent posterior lateral STEMI status post NSVT and hypotension during previous admission between 05/16 to 05/20/2019 and was discharged on Lasix, amiodarone and other medications including Entresto. At home, he has been feeling dyspnea on exertion even walking to bathroom. Yesterday night he fell down on his left shoulder because of weakness/legs could not hold him. Patient denies chest pain, palpitation or near syncope. In ED, vitals were stable, blood pressure 118/85, heart rate 88 to 99/min with pulse ox 99% on room air. [] Labs shows BNP more than 5000, lactic acid 12.7, elevated LFT, ALT age of 79, AST 2358, total bili 2.8. Bicarb 16, anion gap 24, K5.9 sodium 135. BUN/creatinine 41/9.07. Patient is on hemodialysis Thursday and Thursday. Chest x-ray shows blunting of right CP angle suggestive of mild pleural effusion and atelectasis. Twelve-lead EKG showed wide QRS complex with heart rate 99 bpm. Right BBB, QRS 166 ms, QTC 564 ms. Previous EKG shows sinus rhythm with first-degree AV block Past Medical History Past Medical History (Chronic Problems): Chronic Problems (Last Updated 05/17/19 @ 15:23 by Mirella Singletary) Non compliance w medication regimen (Chronic) Depression (Chronic) Presence of stent in coronary artery (Chronic ~05/16/19) thrombectomy with PTCA with HASMUKH to proximal, mid and distal RCA 03/03; PTCA with stenting to mid & distal RCA 07/05, PTCA of proximal LAD 07/05; Successful PTCA/HASMUKH of the of proxima RCA in stent restenosis, utilizing a 2.0 x 12 Angiosculpt, followed by a 3.0 x 33 Elunira HASMUKH; 85%-->0%, no dissection.Successful PTCA/HASMUKH of the mid LPL branch of the LCX with a 3.0 x 16 Promus Synergy; 75%-->0%, no dissection; Successful PTCA/HASMUKH of the mid LCX with a 2.75 x 16 Promus Synergy; 75%-->0%, no dissection. No PCI of smal OM branch perfomed due to small vessel disease. 05/20/18; Successful PTCA/HASMUKH proximal LCX with a 3.0 x 16 Promus Synergy, 85%-->0%, no dissection. Successful PTCA/HASMUKH mid RCA ISR with a 2.5 x 10 Angiosculpt, followed with a 3.0 x 38 Promus Synergy, post dilated with a 3.0 and 3.5 x 12 NC balloon; 85%-->0%, no dissection. 10/28/18; Successful PTCA of stent thrombosis/restenosis in mid RCA. per cath 12/01/18 Successful PTCA/HASMUKH emergent heparin/Integrilin bolus assisted PCI to mid LCX with a 2.5 x 16 Promus Synergy, post dilated with a 3.0 x 8 NC balloon using double wire technique; 100%-->0%, no dissection. Successful PTCA/HASMUKH to mid RCA with a 2.5 x 10 Angiosculpt, followed by a 2.5 x 14 Resolute, post dilated with a 3.0 x 8 NC baloon; 90%-->0%, no dissection. Successful PTCA/HASMUKH PCI with 2.5 x 10 Angiosculpt to proximal RCA, followed with a 3.0 x 15 Resolute HASMUKH, post dilated throughout with a 3.0 x 8 NC Balloon; 75%-->0%, no dissection. per cath 05/16/19 Essential hypertension (Chronic) ESRD (end stage renal disease) on dialysis (Chronic) Old myocardial infarction (Chronic) Inferior [place], [place] 07/05 retirement use of drug (Chronic) Antihyperlipidemic Family history of hypertension (Chronic) Other secondary pulmonary hypertension (Chronic) Subendocardial ischemia (Chronic) Ischemic cardiomyopathy (Chronic) Nonrheumatic mitral valve regurgitation (Chronic) Rheumatic tricuspid insufficiency (Chronic) Paroxysmal atrial fibrillation (Chronic) Atherosclerotic heart disease of [place] coronary artery without angina pectoris (Chronic) PTCA/HASMUKH to proximal RCA, mid LPL branch of the LCx, in mid LCx in April 2017; angioplasty and PCI to mid and distal RCA in 2014; thrombectomy and PCI to proximal, mid, and distal RCA in 2011; Type II diabetes mellitus (Chronic) Hyperlipidemia associated with type 2 diabetes mellitus (Chronic) Non-STEMI (non-ST elevated myocardial infarction) (Chronic) HLD (hyperlipidemia) (Chronic) Medical History: Medical History (Last Updated 05/17/19 @ 15:23 by Mirella Singletary) Presence of stent in coronary artery (Chronic) Onset Date: ~05/16/19 Z95.5 thrombectomy with PTCA with HASMUKH to proximal, mid and distal RCA 03/03; PTCA with stenting to mid & distal RCA 07/05, PTCA of proximal LAD 07/05; Successful PTCA/HASMUKH of the of proxima RCA in stent restenosis, utilizing a 2.0 x 12 Angiosculpt, followed by a 3.0 x 33 Elunira HASMUKH; 85%-->0%, no dissection.Successful PTCA/HASMUKH of the mid LPL branch of the LCX with a 3.0 x 16 Promus Synergy; 75%-->0%, no dissection; Successful PTCA/HASMUKH of the mid LCX with a 2.75 x 16 Promus Synergy; 75%-->0%, no dissection. No PCI of smal OM branch perfomed due to small vessel disease. 05/20/18; Successful PTCA/DE S proximal LCX with a 3.0 x 16 Promus Synergy, 85%-->0%, no dissection. Successful PTCA/HASMUKH mid RCA ISR with a 2.5 x 10 Angiosculpt, followed with a 3.0 x 38 Promus Synergy, post dilated with a 3.0 and 3.5 x 12 NC balloon; 85%-->0%, no dissection. 10/28/18; Successful PTCA of stent thrombosis/restenosis in mid RCA. per cath 12/01/18 Successful PTCA/HASMUKH emergent heparin/Integrilin bolus assisted PCI to mid LCX with a 2.5 x 16 Promus Synergy, post dilated with a 3.0 x 8 NC balloon using double wire technique; 100%-->0%, no dissection. Successful PTCA/HASMUKH to mid RCA with a 2.5 x 10 Angiosculpt, followed by a 2.5 x 14 Resolute, post dilated with a 3.0 x 8 NC baloon; 90%-->0%, no dissection. Successful PTCA/HASMUKH PCI with 2.5 x 10 Angiosculpt to proximal RCA, followed with a 3.0 x 15 Resolute HASMUKH, post dilated throughout with a 3.0 x 8 NC Balloon; 75%-->0%, no dissection. per cath 05/16/19 Essential hypertension (Chronic) I10 Old myocardial infarction (Chronic) I25.2 Inferior [place], [place] 07/05 retirement use of drug (Chronic) Z79.899 Antihyperlipidemic Family history of hypertension (Chronic) Z82.49 Other secondary pulmonary hypertension (Chronic) I27.29 Subendocardial ischemia (Chronic) I24.8 Ischemic cardiomyopathy (Chronic) I25.5 Nonrheumatic mitral valve regurgitation (Chronic) I34.0 Rheumatic tricuspid insufficiency (Chronic) I07.1 Paroxysmal atrial fibrillation (Chronic) I48.0 Atherosclerotic heart disease of [place] coronary artery without angina pectoris (Chronic) I25.10 PTCA/HASMUKH to proximal RCA, mid LPL branch of the LCx, in mid LCx in April 2017; angioplasty and PCI to mid and distal RCA in 2014; thrombectomy and PCI to proximal, mid, and distal RCA in 2011; Type II diabetes mellitus (Chronic) E11.9 Hyperlipidemia associated with type 2 diabetes mellitus (Chronic) E11.69, E78.5 Non-STEMI (non-ST elevated myocardial infarction) (Acute) I21.4 Unstable angina (Acute) HLD (hyperlipidemia) (Chronic) E78.5 Acute on chronic renal insufficiency (Resolved) N28.9, N18.9 Hyperkalemia (Resolved) E87.5 Left flank pain (Resolved) R10.9 Uncontrollable nausea and vomiting (Resolved) R11.2 Coronary artery disease (Inactive) I25.10 Pneumonia (Inactive) J18.9 Allergies codeine Allergy (Verified 05/30/19 14:22) Itching Home Medications: Ambulatory Orders Medication Instructions Recorded Aspirin [Low Dose Aspirin EC] 81 mg PO DAILY #30 05/19/19 Nitroglycerin (INPATIENT USE) 0.4 mg SUBLINGUAL Q5M PRN #30 05/19/19 [Nitrostat] tab.subl Ticagrelor [Brilinta] 90 mg PO BID #60 tab 05/19/19 Amiodarone HCl [Cordarone] 200 mg PO TID #90 tab 05/20/19 Albuterol Sulfate [Proair Hfa] 1 - 2 inh IH Q4H PRN PRN 05/30/19 Pravastatin Sodium 80 mg PO QHS 05/30/19 Sacubitril/Valsartan 24/26 mg 1 tab PO BID 05/30/19 [Entresto 24 mg-26 mg Tablet] Surgical History: Surgical History (Last Updated 05/17/19 @ 15:23 by Mirella Singletary) Presence of surgically created arteriovenous shunt for hemodialysis Onset Date: ~05/2017 Z99.2 fistulogram 09/07 Presence of coronary angioplasty implant and graft Onset Date: ~05/16/19 Z95.5 thrombectomy with PTCA with HASMUKH to proximal, mid and distal RCA 03/03; PTCA with stenting to mid & distal RCA 07/05, PTCA of proximal LAD 07/05; Successful PTCA/HASMUKH of the of proxima RCA in stent restenosis, utilizing a 2.0 x 12 Angiosculpt, followed by a 3.0 x 33 Elunira HASMUKH; 85%-->0%, no dissection.Successful PTCA/HASMUKH of the mid LPL branch of the LCX with a 3.0 x 16 Promus Synergy; 75%-->0%, no dissection; Successful PTCA/HASMUKH of the mid LCX with a 2.75 x 16 Promus Synergy; 75%-->0%, no dissection. No PCI of smal OM branch perfomed due to small vessel disease. 05/20/18; Successful PTCA/HASMUKH proximal LCX with a 3.0 x 16 Promus Synergy, 85%-->0%, no dissection. Successful PTCA/HASMUKH mid RCA ISR with a 2.5 x 10 Angiosculpt, followed with a 3.0 x 38 Promus Synergy, post dilated with a 3.0 and 3.5 x 12 NC balloon; 85%-->0%, no dissection. 10/28/18; Successful PTCA of stent thrombosis/restenosis in mid RCA. Per Cath: 12/01/18 Successful PTCA/HASMUKH emergent heparin/Integrilin bolus assisted PCI to mid LCX with a 2.5 x 16 Promus Synergy, post dilated with a 3.0 x 8 NC balloon using double wire technique; 100%-->0%, no dissection. Successful PTCA/HASMUKH to mid RCA with a 2.5 x 10 Angiosculpt, followed by a 2.5 x 14 Resolute, post dilated with a 3.0 x 8 NC baloon; 90%-->0%, no dissection. Successful PTCA/HASMUKH PCI with 2.5 x 10 Angiosculpt to proximal RCA, followed with a 3.0 x 15 Resolute HASMUKH, post dilated throughout with a 3.0 x 8 NC Balloon; 75%-->0%, no dissection. 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 Psychiatric History: Anxiety Smoking Status: Never smoker - *Family History Maternal Family History: Family History (Last Reviewed 09/30/18 @ 13:10 by Mirella Singletary) Mother Breast cancer Myocardial infarction CAD (coronary artery disease) Father Colon cancer Hypertension Myocardial infarction Other Family history of hypertension History Items: Cancer, Heart Disease, Hypertension Paternal Family History: Family History (Last Reviewed 09/30/18 @ 13:10 by Mirella Singletary) Mother Breast cancer Myocardial infarction CAD (coronary artery disease) Father Colon cancer Hypertension Myocardial infarction Other Family history of hypertension History Items: Cancer, Heart Disease, Hypertension Review of Systems Constitutional: Denies: Chills, Fever, Weight Change HEENT: Denies: Head Aches, Sinus Congestion, Sinus Drainage Cardiovascular: Denies: Chest Pain, Palpitations Respiratory: Reports: Shortness of breath upon exertion. Denies: Cough, Shortness of breath at rest, Sputum production Gastrointestinal: Denies: Abdominal Pain, Nausea, Vomiting Genitourinary: Denies: Dysuria, Frequency, Urgency Musculoskeletal: Reports: Joint Pain, Shoulder Pain - Left shoulder pain, - - Fall. Denies: Joint Tenderness Skin: Denies: Rash, Wounds Neurological: Denies: Numbness, Tingling, Focal weakness Psychiatric: Denies: Anxiety, Depression, Homicidal Ideations, Suicidal Ideations Hematologic/ Lymphatic: Denies: Easy Bruising, Easy Bleeding VTE Information - Inpt Only VTE Present on Admission: No VTE Mechan Device Prophylaxis: None VTE Pharm Prophylaxis ordered?: Yes Patient Problems: Active and Suspected Problems (Last Updated 05/17/19 @ 15:23 by Mirella Singletary) Elevated LFTs (Acute) Near syncope (Acute) - Physical Exam Vitals/I&O's: Vital Signs Temp Pulse Resp BP Pulse Ox 97.4 F L 98 18 112/72 97 05/30/19 18:03 05/30/19 18:03 05/30/19 18:03 05/30/19 18:03 05/30/19 18:03 Oxygen Delivery Method Room Air Weight: 165 lb 5.547 oz Body Mass Index (BMI) 25.9 Finger Stick Blood Glucose 123 General: Alert, Oriented x3, Cooperative HEENT: Atraumatic, PERRLA, EOMI, Normocephalic Neck: Supple, No JVD, Negative Carotid Bruits Lungs: Clear to auscultation, No rhonchi, No wheeze, No rales, Diminished Cardiovascular: Regular rate, Regular Rhythm, Normal S1, Normal S2, No murmurs Abdomen: Bowel Sounds Present, Soft, Non Tender, Non-Distended Extremities: Capillary Refill Less than 3 Seconds, Edema Skin: No rashes, No breakdown Musculoskeletal: No Tenderness to Palpation of Joints or Extremities, Arthritic Changes Neurological: Cranial nerves II-XII grossly intact, Deep Tendon Reflexes 2+/4 and Symmetrical, Neuro grossly intact Psych/Mental Status: Normal Affect, Appropriate Microbiology Past 72 Hours 05/30/19 15:41 Mucosa - Nasopharyngeal Influenza Types A,B Direct FA (ROSALEE) - Final Laboratory Results 05/30/19 14:22: Lipase 68 L 05/30/19 14:42: WBC 25.6 H, RBC 2.87 L, Hgb 9.7 L, Hct 29.9 L, MCV 104.2 H, MCH 33.8 H, MCHC 32.4, RDW Std Deviation 55.3 H, RDW Coeff of Kirsten 14.6, Plt Count 224, MPV 11.8, Immature Gran % (Auto) 1.000 H, Neut % (Auto) 91.5 H, Lymph % (Auto) 2.8 L, Gregory % (Auto) 4.3, Eos % (Auto) 0.2, Baso % (Auto) 0.2, Absolute Neuts (auto) 23.4 H, Absolute Lymphs (auto) 0.72 L, Nucleated RBC % 0, Differential Comment SCANNED, Platelet Estimate ADEQUATE, Hypochromasia RARE, Macrocytosis 1+ 05/30/19 14:42: Sodium 135 L, Potassium 5.9 H, Chloride 95 L, Carbon Dioxide 16.0 L, Anion Gap 24 H, BUN 41 H, Creatinine 9.07 H*, Estim Creat Clear Calc 6.58, Est GFR (MDRD) Af Amer 7 L, Est GFR (MDRD) Non-Af 6 L, BUN/Creatinine Ratio 4.5 L, Glucose 173 H, Calcium 9.1, Total Bilirubin 2.80 H, AST 2358 H, ALT 881 H, Alkaline Phosphatase 93, Troponin I 0.691 H*, Total Protein 8.0, Albumin 3.0 L, Globulin 5.0 H, Albumin/Globulin Ratio 0.6 L 05/30/19 14:42: B-Natriuretic Peptide > 5000.0 H 05/30/19 16:05: Lactic Acid 12.7 H* Assessment/Plan All Active Problems (Last Updated 05/17/19 @ 15:23 by Mirella Singletary) Elevated LFTs (Acute) Near syncope (Acute) Acute on chronic renal insufficiency (Resolved) Hyperkalemia (Resolved) Left flank pain (Resolved) Problem with dialysis access (Resolved) Uncontrollable nausea and vomiting (Resolved) The patient is a 73 year old M with multiple comorbidities including coronary artery disease status post PCI, recent posterior lateral STEMI status post NSVT and hypotension during previous admission between 05/16 to 05/20/2019 and was discharged on Lasix, amiodarone and other medications including Entresto. At home, he has been feeling dyspnea on exertion even walking to bathroom. Yesterday night he fell down on his left shoulder because of weakness/legs could not hold him. Patient denies chest pain, palpitation or near syncope. In ED, vitals were stable, blood pressure 118/85, heart rate 88 to 99/min with pulse ox 99% on room air. [] Labs shows BNP more than 5000, lactic acid 12.7, Bicarb 16, anion gap 24, K5.9 sodium 135. BUN/creatinine 41/9.07. Patient is on hemodialysis Thursday and Thursday. Chest x-ray shows blunting of right CP angle suggestive of mild pleural effusion and atelectasis. Twelve-lead EKG showed wide QRS complex with heart rate 99 bpm. Right BBB, QRS 166 ms, QTC 564 ms. Previous EKG shows sinus rhythm with first-degree AV block 1. Elevated LFT, possible congestive or drug-induced liver injury; possible severe sepsis/septic shock: elevated LFT, ALT 881, AST 2358, total bili 2.8. Alkaline phosphatase 93. Patient previous LFT on 05/17 2019 showed ALT 64, AST 701 but total bili normal. Patient home medication amiodarone and pravastatin discontinued. Patient had liver ultrasound and CT abdomen which did not account for increased LFT. Right upper quadrant sonogram shows thickened appearance of gallbladder wall with a partially contracted. CT abdomen shows portal vein diameter 14 mm, possible lithogenic sludge but no apparent thickening of gallbladder wall pericholecystic fluid to suggest cholecystitis. CBD 5 mm. It seems patient does not have portal vein thrombosis although CT abdomen was without IV contrast. Monitor LFT daily. GGT ordered. Acute hepatitis panel, HIV ordered. If LFT does not improve, will need AMA, ASMA, ASHTYN, ANTI LKM or other autoantibodies but possibility of chronic granulomatous disease or autoimmune disease is very rare. As there is concern of severe sepsis/septic shock, lactic acid 12.7 therefore started empirically on IV Zosyn. Blood cultures x2 ordered. Respiratory panel ordered. Rapid influenza test is negative. 2. Near syncope probably related to antihypertensive medication: Orthostatic blood pressure ordered. Patient is on Entresto, continued with holding donal eters. 3. Fall: PT and OT ordered. 4. Recent NSTEMI Posterior lateral wall with history of coronary artery disease with multiple stents: : Patient had 3 stents. EF 20 to 25%. Severe hypokinesis with depressed LV function. Patient also had NSVT and hypotension during previous hospital course. 5. Chronic systolic heart failure, ischemic cardiomyopathy: Patient had recent echo on May 18, 2019. Interpretation Summary Mild concentric left ventricular hypertrophy. Moderately dilated left ventricle. The estimated ejection fraction is 25 %. Stage 1 diastolic dysfunction. Mild-Moderate (1-2+) posteriorly directed mitral valve insufficiency. Mild (1+) tricuspid valve insufficiency. Right ventricular systolic pressure estimated to be 40 mmHg. Mild pulmonary hypertension. Compared to echo results dated 10/28/2018 LV function has deteriorated from 45% to 25%, unable to calculate RVSP at that time. Hold Lasix for now. Currently patient is on IV fluid resuscitation. Hemodynamically stable. Monitor intake and output and daily weight check. Incentive spirometry. 5. Chronic normocytic anemia/AOCD: Admission hemoglobin 9.7/30, baseline 9-11, stable. Monitor CBC daily 5. Diabetes mellitus type II: A1c 6.4 in April 2019. Continue Accu-Chek before meals and at bedtime and cover with Hem-o-chadwick sliding scale. 6. ESRD on hemodialysis, M/W/F: Dr. the studies been consulted. Other comorbidities include hypertension, dyslipidemia, paroxysmal A. fib: Patient is on Coreg. Patient is not on anticoagulation. 10. DVT prophylaxis: SCDs, on heparin 5000 units subcutaneous twice daily Microbiology Past 72 Hours 05/30/19 15:41 Mucosa - Nasopharyngeal Influenza Types A,B Direct FA (ROSALEE) - Final Laboratory Results 05/30/19 14:22: Lipase 68 L 05/30/19 14:42: WBC 25.6 H, RBC 2.87 L, Hgb 9.7 L, Hct 29.9 L, MCV 104.2 H, MCH 33.8 H, MCHC 32.4, RDW Std Deviation 55.3 H, RDW Coeff of Kirsten 14.6, Plt Count 224, MPV 11.8, Immature Gran % (Auto) 1.000 H, Neut % (Auto) 91.5 H, Lymph % (Auto) 2.8 L, Gregory % (Auto) 4.3, Eos % (Auto) 0.2, Baso % (Auto) 0.2, Absolute Neuts (auto) 23.4 H, Absolute Lymphs (auto) 0.72 L, Nucleated RBC % 0, Differential Comment SCANNED, Platelet Estimate ADEQUATE, Hypochromasia RARE, Macrocytosis 1+ 05/30/19 14:42: Sodium 135 L, Potassium 5.9 H, Chloride 95 L, Carbon Dioxide 16.0 L, Anion Gap 24 H, BUN 41 H, Creatinine 9.07 H*, Estim Creat Clear Calc 6.58, Est GFR (MDRD) Af Amer 7 L, Est GFR (MDRD) Non-Af 6 L, BUN/Creatinine Ratio 4.5 L, Glucose 173 H, Calcium 9.1, Total Bilirubin 2.80 H, AST 2358 H, ALT 881 H, Alkaline Phosphatase 93, Troponin I 0.691 H*, Total Protein 8.0, Albumin 3.0 L, Globulin 5.0 H, Albumin/Globulin Ratio 0.6 L 05/30/19 14:42: B-Natriuretic Peptide > 5000.0 H 05/30/19 16:05: Lactic Acid 12.7 H* Clinical Impression(s) from Imaging Studies Chest X-Ray 05/30/19 14:52 IMPRESSION: Stable examination with blunting of the right costophrenic angle and increased markings at the right lung base suggestive of atelectasis. Liver Ultrasound 05/30/19 15:34 IMPRESSION: There is a thickened appearance of the gallbladder wall which may be partially contracted. On one image there is a suggestion that there may be pericholecystic fluid. There is no definitive evidence of gallstones. This may represent trace ascites. The sonographic Bowles''s sign is described as negative. Cannot include or exclude chronic cholecystitis. Other imaging may be warranted if pain persists. Partially visualized small right effusion. Right renal cortical thinning which may be associated with underlying medical renal disease. Abdomen/Pelvis CT 05/30/19 17:14 IMPRESSION: 1. Atherosclerotic vascular calcifications noted. No demonstrated aortic aneurysm. The heart is borderline to mildly enlarged. 2. Small to moderate right pleural effusion with minimal atelectasis in the right lung base. Infection not excluded. 3. Moderate cortical atrophy of the bilateral kidneys now present. No hydronephrosis. 4. Possible sludge in the gallbladder. No sign of acute cholecystitis. If clinically indicated, this can be further characterized with ultrasound. 5. Occasional calcified granulomata again seen in the liver and spleen. 6. Degenerative changes again seen in the spine and bilateral sacroiliac joints. There is been particular progression of degenerative disc height narrowing at L2-3 with anterior fusion of the vertebra at that level. Inpatient E&M: [id number] Init Hosp L3
[2019-05-30 20:20] LABS: Reflex Lactate? Y
[2019-05-30 21:04] LABS: GGTP 21 U/L (15-85); Magnesium 2.6 mg/dL (1.6-2.6)
[2019-05-30] MEDS: 0.9% Normal Saline 1,000 ML 50 ML IV (21:56)
[2019-05-30] MEDS: Pravastatin 80 MG Tablet PO (21:56)
[2019-05-30] MEDS: TICAGRELOR 90 MG TABLET PO (21:56)
[2019-05-30] MEDS: SACUBITRIL/VALSARTAN 24/26 MG TABLET 1 EACH PO (21:57)
[2019-05-30] MEDS: Heparin Injection (Vial) 5,000 UNIT/ML VIAL 5000 UNIT SC (21:57)
[2019-05-30 22:09] LABS: Lactic Acid 6.5 mmol/L (0.4-1.9)
[2019-05-30 22:11] LABS: Bedside Glucose 110 mg/dL (70-110)
[2019-05-30 22:27] LABS: HIV - WCH Non-Reactive (Nonreactive)
[2019-05-30] MEDS: Albuterol 2.5 MG/3 ML VIAL.NEB. INHALATION (22:27)
[2019-05-31] VITALS (31 sets, daily range): BP systolic 88–148; BP diastolic 32–106; PULSE 91–147; RESP 16–105; TEMP 36.3–36.7; O2SAT 94–100
[2019-05-31 01:07] LABS: M R Staph aureus DNA By PCR Negative (Negative)
[2019-05-31 01:11] LABS: Probe Check PASS; Specimen Processing Control PASS
[2019-05-31 02:24] LABS: Absolute Lymphocyte Count 0.81 X10^3/uL (0.83-4.51); Absolute Neutrophil Count 17.7 X10^3/uL (2.0-7.7); Basophil# 0.03 X10^3/uL; Basophil% 0.2 % (0-1); Eosinophil# 0.02 X10^3/uL; Eosinophils% 0.1 % (0-5); Hematocrit 29.1 % (40-54); Hemoglobin 9.5 g/dL (13.0-16.5); Lymphocyte # 0.81 X10^3/ul (4.0); Lymphocyte % 4.2 % (19-41); Mean Corp Hgb Conc 32.6 g/dL (32-36); Mean Corpuscular Hgb 33.3 pg (27.0-32.0); Mean Corpuscular Volume 102.1 fL (80-94); Monocyte% 3.1 % (0-10); NRBC Flagged by Analyzer 0.2 % (0-5); Neutrophil % 91.8 % (47-70); Platelet Count 201 K/mm3 (150-450); RBC Distribution Width CV 14.6 % (11.6-14.6); RBC Distribution Width SD 54.1 fl (35.1-43.9); Red Blood Count 2.85 M/mm3 (4.6-6.2); White Blood Count 19.3 K/mm3 (4.4-11.0)
[2019-05-31 03:05] LABS: AST(SGOT) 5050 U/L (15-37); Alanine Aminotransfer ALT/SGPT 2713 U/L (16-61); Albumin, Serum 2.9 g/dL (3.2-5.0); Alkaline Phosphatase 93 U/L (45-117); Anion Gap 15 (5-15); BUN 54 mg/dL (7-18); BUN/Creat Ratio 5.8 RATIO (10-20); Bilirubin, Direct 1.61 mg/dL (0.00-0.30); Calcium,Total 8.8 mg/dL (8.5-10.1); Chloride 97 mmol/L (98-107); Creatinine, Serum 9.33 mg/dL (0.70-1.30); EST Glomerular Filtration Rate 6 mL/min (>60); Est Glom Filt Rate - Afr Amer 7 mL/min (>60); Globulin 4.5 g/dL (2.2-4.2); Glucose 90 mg/dL (74-106); Potassium 5.5 mmol/L (3.5-5.1); Protein, Total 7.4 g/dL (6.4-8.2); Sodium Level 137 mmol/L (136-145); Thyroid Stim Hormone (TSH) 2.24 uIU/mL (0.358-3.74)
--- NOTE | 2019-05-31 06:55 | CON.PCM_ITS ---
Reason for Consult Date of Consultation: 05/31/19 Reason for Consultation: Shortness of breath, acute liver injury, lactic acidemia History of Present Illness: The patient is a 73-year-old male, with a history as outlined below, who presented to the emergency department on May 29 with complaints of shortness of breath and generalized weakness. The patient was just discharged from the hospital on May 20, after having been admitted for an ST elevation myocardial infarction. The patient was taken to [facility] and underwent stent placement to the mid circumflex, mid RCA and proximal RCA. The patient did have some episodes of nonsustained V. tach. He also has a history of paroxysmal atrial fibrillation. On discharge from the hospital, he was placed on amiodarone and was continued on Entresto, Brilinta, aspirin and pravastatin 80 mg. The patient reported to me that he discontinued his amiodarone approximately 2 days after being discharged from the hospital due to patient reported side effects. However, he was unable to clarify further as to what he meant by side effects. Of note, the patient did miss his hemodialysis session yesterday, as he stated that he was too weak to attend. On presentation to the emergency department, the patient was noted to be afebrile and hemodynamically stable. He was maintaining appropriate oxygen saturations on room air. Initial laboratory evaluation revealed an elevated white blood cell count to 25,000. INR was noted to be 2.1. PT was elevated to 23. Chemistry profile was notable for a sodium of 135, potassium of 5.9, chloride of 95, bicarbonate of 16 and creatinine of 9.07. Lactate was significantly elevated to 12.7. Liver function profile revealed an elevated total bili to 2.8 with an AST of 2358 and ALT of 881. Initial troponin was 0.691. BNP was elevated to greater than 5000. Lipase was within normal limits. Initial plain film chest x-ray revealed blunting of the right costophrenic angle. Liver ultrasound was obtained and revealed a thickened appearance of the gallbladder with possible pericholecystic fluid. There was no evidence of gallstones. A CT abdomen/pelvis was subsequently obtained which demonstrated a small right-sided pleural effusion along with possible sludge in the gallbladder. There is no radiographic evidence of acute cholecystitis. In light of the patient's elevated white blood cell count and lactic acidemia, he was started on empiric Zosyn. He did receive some supplemental IV fluid hydration and was subsequently admitted to the medical intensive care unit. This morning, the patient's white blood cell count has improved to 19,000. However, the patient's total bili has increased to 3.0, AST has increased to 5050 and ALT has increased to 2713. His last troponin was 0.863. TSH was within normal limits. This morning, the patient began to experience intermittent episodes of profound bradycardia with heart rates that fell into the 30s. The patient became symptomatic complaining of shortness of breath and chest discomfort. He was treated on 2 occasions with atropine with subsequent improvement in his heart rate. Cardiology was asked to evaluate the patient. In light of the patient's worsening liver function, metabolic derangements and cardiac dysrhythmia, he was felt best to be served at a tertiary care facility with hepatology expertise. Past Medical History Past Medical History (Chronic Problems): Chronic Problems (Last Updated 05/17/19 @ 15:23 by Mirella Singletary) CAD (coronary artery disease) (Chronic) Non compliance w medication regimen (Chronic) Depression (Chronic) Presence of stent in coronary artery (Chronic ~05/16/19) thrombectomy with PTCA with HASMUKH to proximal, mid and distal RCA 03/03; PTCA with stenting to mid & distal RCA 07/05, PTCA of proximal LAD 07/05; Successful PTCA/HASMUKH of the of proxima RCA in stent restenosis, utilizing a 2.0 x 12 Angiosculpt, followed by a 3.0 x 33 Elunira HASMUKH; 85%-->0%, no dissection.Successful PTCA/HASMUKH of the mid LPL branch of the LCX with a 3.0 x 16 Promus Synergy; 75%-->0%, no dissection; Successful PTCA/HASMUKH of the mid LCX with a 2.75 x 16 Promus Synergy; 75%-->0%, no dissection. No PCI of smal OM branch perfomed due to small vessel disease. 05/20/18; Successful PTCA/HASMUKH proximal LCX with a 3.0 x 16 Promus Synergy, 85%-->0%, no dissection. Successful PTCA/HASMUKH mid RCA ISR with a 2.5 x 10 Angiosculpt, followed with a 3.0 x 38 Promus Synergy, post dilated with a 3.0 and 3.5 x 12 NC balloon; 85%-->0%, no dissection. 10/28/18; Successful PTCA of stent thrombosis/restenosis in mid RCA. per cath 12/01/18 Successful PTCA/HASMUKH emergent heparin/Integrilin bolus assisted PCI to mid LCX with a 2.5 x 16 Promus Synergy, post dilated with a 3.0 x 8 NC balloon using double wire technique; 100%-->0%, no dissection. Successful PTCA/HASMUKH to mid RCA with a 2.5 x 10 Angiosculpt, followed by a 2.5 x 14 Resolute, post dilated with a 3.0 x 8 NC baloon; 90%-->0%, no dissection. Successful PTCA/HASMUKH PCI with 2.5 x 10 Angiosculpt to proximal RCA, followed with a 3.0 x 15 Resolute HASMUKH, post dilated throughout with a 3.0 x 8 NC Balloon; 75%-->0%, no dissection. per cath 05/16/19 Essential hypertension (Chronic) ESRD (end stage renal disease) on dialysis (Chronic) Old myocardial infarction (Chronic) Inferior CT, anterior CT 07/05 USP use of drug (Chronic) Antihyperlipidemic Family history of hypertension (Chronic) Other secondary pulmonary hypertension (Chronic) Subendocardial ischemia (Chronic) Ischemic cardiomyopathy (Chronic) Nonrheumatic mitral valve regurgitation (Chronic) Rheumatic tricuspid insufficiency (Chronic) Paroxysmal atrial fibrillation (Chronic) Atherosclerotic heart disease of [place] coronary artery without angina pectoris (Chronic) PTCA/HASMUKH to proximal RCA, mid LPL branch of the LCx, in mid LCx in April 2017; angioplasty and PCI to mid and distal RCA in 2014; thrombectomy and PCI to proximal, mid, and distal RCA in 2011; Type II diabetes mellitus (Chronic) Hyperlipidemia associated with type 2 diabetes mellitus (Chronic) HLD (hyperlipidemia) (Chronic) Medical History: Medical History (Last Updated 05/17/19 @ 15:23 by Mirella Singletary) Presence of stent in coronary artery (Chronic) Onset Date: ~05/16/19 Z95.5 thrombectomy with PTCA with HASMUKH to proximal, mid and distal RCA 03/03; PTCA with stenting to mid & distal RCA 07/05, PTCA of proximal LAD 07/05; Successful PTCA/HASMUKH of the of proxima RCA in stent restenosis, utilizing a 2.0 x 12 Angiosculpt, followed by a 3.0 x 33 Elunira HASMUKH; 85%-->0%, no dissection.Successful PTCA/HASMUKH of the mid LPL branch of the LCX with a 3.0 x 16 Promus Synergy; 75%-->0%, no dissection; Successful PTCA/HASMUKH of the mid LCX with a 2.75 x 16 Promus Synergy; 75%-->0%, no dissection. No PCI of smal OM branch perfomed due to small vessel disease. 05/20/18; Successful PTCA/HASMUKH proximal LCX with a 3.0 x 16 Promus Synergy, 85%-->0%, no dissection. Successful PTCA/HASMUKH mid RCA ISR with a 2.5 x 10 Angiosculpt, followed with a 3.0 x 38 Promus Synergy, post dilated with a 3.0 and 3.5 x 12 NC balloon; 85%-->0%, no dissection. 10/28/18; Successful PTCA of stent thrombosis/restenosis in mid RCA. per cath 12/01/18 Successful PTCA/HASMUKH emergent heparin/Integrilin bolus assisted PCI to mid LCX with a 2.5 x 16 Promus Synergy, post dilated with a 3.0 x 8 NC balloon using double wire technique; 100%-->0%, no dissection. Successful PTCA/HASMUKH to mid RCA with a 2.5 x 10 Angiosculpt, followed by a 2.5 x 14 Resolute, post dilated with a 3.0 x 8 NC baloon; 90%-->0%, no dissection. Successful PTCA/HASMUKH PCI with 2.5 x 10 Angiosculpt to proximal RCA, followed with a 3.0 x 15 Resolute HASMUKH, post dilated throughout with a 3.0 x 8 NC Balloon; 75%-->0%, no dissection. per cath 05/16/19 Essential hypertension (Chronic) I10 Old myocardial infarction (Chronic) I25.[address], anterior CT /15 intermediate designer use of drug (Chronic) Z79.899 Antihyperlipidemic Family history of hypertension (Chronic) Z82.49 Other secondary pulmonary hypertension (Chronic) I27.29 Subendocardial ischemia (Chronic) I24.8 Ischemic cardiomyopathy (Chronic) I25.5 Nonrheumatic mitral valve regurgitation (Chronic) I34.0 Rheumatic tricuspid insufficiency (Chronic) I07.1 Paroxysmal atrial fibrillation (Chronic) I48.0 Atherosclerotic heart disease of [place] coronary artery without angina pectoris (Chronic) I25.10 PTCA/HASMUKH to proximal RCA, mid LPL branch of the LCx, in mid LCx in April 2017; angioplasty and PCI to mid and distal RCA in 2014; thrombectomy and PCI to proximal, mid, and distal RCA in 2011; Type II diabetes mellitus (Chronic) E11.9 Hyperlipidemia associated with type 2 diabetes mellitus (Chronic) E11.69, E78.5 Non-STEMI (non-ST elevated myocardial infarction) (Acute) I21.4 Unstable angina (Inactive) HLD (hyperlipidemia) (Chronic) E78.5 Acute on chronic renal insufficiency (Resolved) N28.9, N18.9 Hyperkalemia (Resolved) E87.5 Left flank pain (Resolved) R10.9 Uncontrollable nausea and vomiting (Resolved) R11.2 Coronary artery disease (Inactive) I25.10 Pneumonia (Inactive) J18.9 Allergies codeine Allergy (Verified 05/30/19 14:22) Itching Home Medications: Ambulatory Orders Medication Instructions Recorded Aspirin [Low Dose Aspirin EC] 81 mg PO DAILY #30 05/19/19 Nitroglycerin (INPATIENT USE) 0.4 mg SUBLINGUAL Q5M PRN #30 05/19/19 [Nitrostat] tab.subl Ticagrelor [Brilinta] 90 mg PO BID #60 tab 05/19/19 Albuterol Sulfate [Proair Hfa] 1 - 2 inh IH Q4H PRN PRN 05/30/19 Pravastatin Sodium 80 mg PO QHS 05/30/19 Sacubitril/Valsartan 24/26 mg 1 tab PO BID 05/30/19 [Entresto 24 mg-26 mg Tablet] DOPamine IV 800 mg CONT INF .[id number] iv.soln. 05/31/19 Piperacil/Tazobactam [Zosyn] 3.375 gm IV Q12 vial 05/31/19 Surgical History: Surgical History (Last Updated 05/17/19 @ 15:23 by Mirella Singletary) Presence of surgically created arteriovenous shunt for hemodialysis Onset Date: ~05/2017 Z99.2 fistulogram 09/07 Presence of coronary angioplasty implant and graft Onset Date: ~05/16/19 Z95.5 thrombectomy with PTCA with HASMUKH to proximal, mid and distal RCA 03/03; PTCA with stenting to mid & distal RCA 07/05, PTCA of proximal LAD 07/05; Successful PTCA/HASMUKH of the of proxima RCA in stent restenosis, utilizing a 2.0 x 12 Angiosculpt, followed by a 3.0 x 33 Elunira HASMUKH; 85%-->0%, no dissection.Successful PTCA/HASMUKH of the mid LPL branch of the LCX with a 3.0 x 16 Promus Synergy; 75%-->0%, no dissection; Successful PTCA/HASMUKH of the mid LCX with a 2.75 x 16 Promus Synergy; 75%-->0%, no dissection. No PCI of smal OM branch perfomed due to small vessel disease. 05/20/18; Successful PTCA/HASMUKH proximal LCX with a 3.0 x 16 Promus Synergy, 85%-->0%, no dissection. Successful PTCA/HASMUKH mid RCA ISR with a 2.5 x 10 Angiosculpt, followed with a 3.0 x 38 Promus Synergy, post dilated with a 3.0 and 3.5 x 12 NC balloon; 85%-->0%, no dissection. 10/28/18; Successful PTCA of stent throm bosis/restenosis in mid RCA. Per Cath: 12/01/18 Successful PTCA/HASMUKH emergent heparin/Integrilin bolus assisted PCI to mid LCX with a 2.5 x 16 Promus Synergy, post dilated with a 3.0 x 8 NC balloon using double wire technique; 100%-->0%, no dissection. Successful PTCA/HASMUKH to mid RCA with a 2.5 x 10 Angiosculpt, followed by a 2.5 x 14 Resolute, post dilated with a 3.0 x 8 NC baloon; 90%-->0%, no d issection. Successful PTCA/HASMUKH PCI with 2.5 x 10 Angiosculpt to proximal RCA, followed with a 3.0 x 15 Resolute HASMUKH, post dilated throughout with a 3.0 x 8 NC Balloon; 75%-->0%, no dissection. 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 Psychiatric History: Anxiety Smoking Status: Never smoker Tobacco Use: Non-smoker - *Family History Maternal Family History: Family History (Last Reviewed 09/30/18 @ 13:10 by Mirella Singletary) Mother Breast cancer Myocardial infarction CAD (coronary artery disease) Father Colon cancer Hypertension Myocardial infarction Other Family history of hypertension History Items: Cancer, Heart Disease, Hypertension Paternal Family History: Family History (Last Reviewed 09/30/18 @ 13:10 by Mirella Singletary) Mother Breast cancer Myocardial infarction CAD (coronary artery disease) Father Colon cancer Hypertension Myocardial infarction Other Family history of hypertension History Items: Cancer, Heart Disease, Hypertension Review of Systems Constitutional: Reports: Malaise, Weakness, Fatigue. Denies: Chills, Fever Eyes: Denies: Blurred vision, Double vision HEENT: Denies: Head Aches, Sinus Congestion, Sinus Drainage Cardiovascular: Reports: Light Headedness. Denies: Chest Pain, Edema, Syncope Respiratory: Reports: Shortness of Breath. Denies: Cough, Sputum production Gastrointestinal: Denies: Abdominal Pain, Nausea, Vomiting Genitourinary: Denies: Dysuria Musculoskeletal: Denies: Joint Pain, Joint Tenderness Skin: Denies: Rash, Wounds Neurological: Denies: Numbness, Tingling, Focal weakness Psychiatric: Denies: Anxiety, Depression, Homicidal Ideations, Suicidal Ideations Hematologic/ Lymphatic: Reports: Anemia Patient Problems: Active and Suspected Problems (Last Updated 05/17/19 @ 15:23 by Mirella Singletary) Elevated LFTs (Acute) Near syncope (Acute) Dysrhythmia (Acute) Objective: The patient's most recent lab work, culture data and imaging studies have all been personally reviewed. Blood cultures are pending. Respiratory viral panel is pending. Surface echocardiogram dated May 18 revealed mild concentric LVH with an ejection fraction of 25% and stage I diastolic dysfunction. Right ventricular systolic pressure was estimated to be 40 mmHg. - Physical Exam Vitals/I&O's: Vital Signs Temp Pulse Resp BP Pulse Ox 97.4 F L 94 24 H 144/93 H 98 05/31/19 03:00 05/31/19 06:00 05/31/19 06:00 05/31/19 06:00 05/31/19 06:00 Oxygen Delivery Method Room Air Weight: 176 lb Body Mass Index (BMI) 27.6 Finger Stick Blood Glucose 123 Intake and Output for Last 24 Hours 05/29/19 05/30/19 05/31/19 23:59 23:59 23:59 Intake Total 53.33 / 153.33 550 / 550 Output Total 0 / 0 Balance 53.33 / 153.33 550 / 550 General: Alert, Cooperative, No apparent distress, - - Currently sitting upright in bed. HEENT: Atraumatic, Normocephalic Oral: No Gingival or Mucosal Lesions/ Ulcerations Neck: Supple, No Nodes, Trachea Midline Lungs: Normal air movement, No rhonchi, No wheeze, No rales Cardiovascular: Normal S1, Normal S2, No murmurs, Irregular Rate Abdomen: Bowel Sounds Present, Soft, Non Tender Extremities: No clubbing, No cyanosis Skin: No breakdown Musculoskeletal: No Tenderness to Palpation of Joints or Extremities Lymphatic: No Cervical, Supraclavicular, or Inguinal Adenopathy Neurological: Cranial nerves II-XII grossly intact, Neuro grossly intact Psych/Mental Status: Normal Affect, Appropriate Labs (Last 48 Hours) 05/30/19 05/30/19 05/30/19 14:22 14:42 14:42 WBC 25.6 H RBC 2.87 L Hgb 9.7 L Hct 29.9 L MCV 104.2 H MCH 33.8 H MCHC 32.4 RDW Std Deviation 55.3 H RDW Coeff of Kirsten 14.6 Plt Count 224 MPV 11.8 Immature Gran % (Auto) 1.000 H Neut % (Auto) 91.5 H Lymph % (Auto) 2.8 L Wells % (Auto) 4.3 Eos % (Auto) 0.2 Baso % (Auto) 0.2 Absolute Neuts (auto) 23.4 H Absolute Lymphs (auto) 0.72 L Nucleated RBC % 0 Differential Comment SCANNED Platelet Estimate ADEQUATE Hypochromasia RARE Macrocytosis 1+ Sodium 135 L Potassium 5.9 H Chloride 95 L Carbon Dioxide 16.0 L Anion Gap 24 H BUN 41 H Creatinine 9.07 H* Estim Creat Clear Calc 6.58 Est GFR (MDRD) Af Amer 7 L Est GFR (MDRD) Non-Af 6 L BUN/Creatinine Ratio 4.5 L Glucose 173 H Lactic Acid Calcium 9.1 Magnesium Total Bilirubin 2.80 H Direct Bilirubin GGT AST 2358 H ALT 881 H Alkaline Phosphatase 93 Troponin I 0.691 H* B-Natriuretic Peptide Total Protein 8.0 Albumin 3.0 L Globulin 5.0 H Albumin/Globulin Ratio 0.6 L Lipase 68 L TSH Hepatitis A IgM Ab Hep Bs Antigen Hep B Core IgM Ab Hepatitis C Ab (EIA) HIV 1&2 Antibody MRSA (PCR) POC Glucose 05/30/19 05/30/19 05/30/19 14:42 16:05 20:10 WBC RBC Hgb Hct MCV MCH MCHC RDW Std Deviation RDW Coeff of Kirsten Plt Count MPV Immature Gran % (Auto) Neut % (Auto) Lymph % (Auto) Wells % (Auto) Eos % (Auto) Baso % (Auto) Absolute Neuts (auto) Absolute Lymphs (auto) Nucleated RBC % Differential Comment Platelet Estimate Hypochromasia Macrocytosis Sodium Potassium Chloride Carbon Dioxide Anion Gap BUN Creatinine Estim Creat Clear Calc Est GFR (MDRD) Af Amer Est GFR (MDRD) Non-Af BUN/Creatinine Ratio Glucose Lactic Acid 12.7 H* Calcium Magnesium 2.6 Total Bilirubin Direct Bilirubin GGT 21 AST ALT Alkaline Phosphatase Troponin I 0.695 H* B-Natriuretic Peptide > 5000.0 H Total Protein Albumin Globulin Albumin/Globulin Ratio Lipase TSH Hepatitis A IgM Ab Hep Bs Antigen Hep B Core IgM Ab Hepatitis C Ab (EIA) HIV 1&2 Antibody MRSA (PCR) POC Glucose 05/30/19 05/30/19 05/30/19 21:20 21:20 21:20 WBC RBC Hgb Hct MCV MCH MCHC RDW Std Deviation RDW Coeff of Kirsten Plt Count MPV Immature Gran % (Auto) Neut % (Auto) Lymph % (Auto) Wells % (Auto) Eos % (Auto) Baso % (Auto) Absolute Neuts (auto) Absolute Lymphs (auto) Nucleated RBC % Differential Comment Platelet Estimate Hypochromasia Macrocytosis Sodium Potassium Chloride Carbon Dioxide Anion Gap BUN Creatinine Estim Creat Clear Calc Est GFR (MDRD) Af Amer Est GFR (MDRD) Non-Af BUN/Creatinine Ratio Glucose Lactic Acid 6.5 H* Calcium Magnesium Total Bilirubin Direct Bilirubin GGT AST ALT Alkaline Phosphatase Troponin I B-Natriuretic Peptide Total Protein Albumin Globulin Albumin/Globulin Ratio Lipase TSH Hepatitis A IgM Ab Pending Hep Bs Antigen Pending Hep B Core IgM Ab Pending Hepatitis C Ab (EIA) Pending HIV 1&2 Antibody Non-Reactive MRSA (PCR) POC Glucose 05/30/19 05/30/19 05/30/19 21:53 23:00 23:00 WBC RBC Hgb Hct MCV MCH MCHC RDW Std Deviation RDW Coeff of Kirsten Plt Count MPV Immature Gran % (Auto) Neut % (Auto) Lymph % (Auto) Wells % (Auto) Eos % (Auto) Baso % (Auto) Absolute Neuts (auto) Absolute Lymphs (auto) Nucleated RBC % Differential Comment Platelet Estimate Hypochromasia Macrocytosis Sodium Potassium Chloride Carbon Dioxide Anion Gap BUN Creatinine Estim Creat Clear Calc Est GFR (MDRD) Af Amer Est GFR (MDRD) Non-Af BUN/Creatinine Ratio Glucose Lactic Acid Calcium Magnesium Total Bilirubin Direct Bilirubin GGT AST ALT Alkaline Phosphatase Troponin I 0.772 H* B-Natriuretic Peptide Total Protein Albumin Globulin Albumin/Globulin Ratio Lipase TSH Hepatitis A IgM Ab Hep Bs Antigen Hep B Core IgM Ab Hepatitis C Ab (EIA) HIV 1&2 Antibody MRSA (PCR) Negative POC Glucose 110 05/31/19 05/31/19 05/31/19 02:00 02:00 02:00 WBC 19.3 H RBC 2.85 L Hgb 9.5 L Hct 29.1 L MCV 102.1 H MCH 33.3 H MCHC 32.6 RDW Std Deviation 54.1 H RDW Coeff of Kirsten 14.6 Plt Count 201 MPV 12.0 Immature Gran % (Auto) 0.600 Neut % (Auto) 91.8 H Lymph % (Auto) 4.2 L Wells % (Auto) 3.1 Eos % (Auto) 0.1 Baso % (Auto) 0.2 Absolute Neuts (auto) 17.7 H Absolute Lymphs (auto) 0.81 L Nucleated RBC % 0.2 Differential Comment Platelet Estimate Hypochromasia Macrocytosis Sodium 137 Potassium 5.5 H Chloride 97 L Carbon Dioxide 25.0 Anion Gap 15 BUN 54 H Creatinine 9.33 H* Estim Creat Clear Calc 6.40 Est GFR (MDRD) Af Amer 7 L Est GFR (MDRD) Non-Af 6 L BUN/Creatinine Ratio 5.8 L Glucose 90 Lactic Acid Calcium 8.8 Magnesium Total Bilirubin 3.00 H Direct Bilirubin 1.61 H GGT AST 5050 H ALT 2713 H Alkaline Phosphatase 93 Troponin I 0.863 H* B-Natriuretic Peptide Total Protein 7.4 Albumin 2.9 L Globulin 4.5 H Albumin/Globulin Ratio Lipase TSH 2.24 Hepatitis A IgM Ab Hep Bs Antigen Hep B Core IgM Ab Hepatitis C Ab (EIA) HIV 1&2 Antibody MRSA (PCR) POC Glucose 05/31/19 06:44 WBC RBC Hgb Hct MCV MCH MCHC RDW Std Deviation RDW Coeff of Kirsten Plt Count MPV Immature Gran % (Auto) Neut % (Auto) Lymph % (Auto) Wells % (Auto) Eos % (Auto) Baso % (Auto) Absolute Neuts (auto) Absolute Lymphs (auto) Nucleated RBC % Differential Comment Platelet Estimate Hypochromasia Macrocytosis Sodium Potassium Chloride Carbon Dioxide Anion Gap BUN Creatinine Estim Creat Clear Calc Est GFR (MDRD) Af Amer Est GFR (MDRD) Non-Af BUN/Creatinine Ratio Glucose Lactic Acid Calcium Magnesium Total Bilirubin Direct Bilirubin GGT AST ALT Alkaline Phosphatase Troponin I B-Natriuretic Peptide Total Protein Albumin Globulin Albumin/Globulin Ratio Lipase TSH Hepatitis A IgM Ab Hep Bs Antigen Hep B Core IgM Ab Hepatitis C Ab (EIA) HIV 1&2 Antibody MRSA (PCR) POC Glucose 97 Microbiology 05/30/19 15:41 Mucosa - Nasopharyngeal Influenza Types A,B Direct FA (ROSALEE) - Final Clinical Impression(s) from Imaging Studies Chest X-Ray 05/30/19 14:52 IMPRESSION: Stable examination with blunting of the right costophrenic angle and increased markings at the right lung base suggestive of atelectasis. Electronically Signed: Mando Zamorano, at 15:45 EDT , Service support , Liver Ultrasound 05/30/19 15:34 IMPRESSION: There is a thickened appearance of the gallbladder wall which may be partially contracted. On one image there is a suggestion that there may be pericholecystic fluid. There is no definitive evidence of gallstones. This may represent trace ascites. The sonographic Bowles''s sign is described as negative. Cannot include or exclude chronic cholecystitis. Other imaging may be warranted if pain persists. Partially visualized small right effusion. Right renal cortical thinning which may be associated with underlying medical renal disease. Electronically Signed: Mary Honeycutt MD at 16:59 EDT Tel , Service support , Abdomen/Pelvis CT 05/30/19 17:14 IMPRESSION: 1. Atherosclerotic vascular calcifications noted. No demonstrated aortic aneurysm. The heart is borderline to mildly enlarged. 2. Small to moderate right pleural effusion with minimal atelectasis in the right lung base. Infection not excluded. 3. Moderate cortical atrophy of the bilateral kidneys now present. No hydronephrosis. 4. Possible sludge in the gallbladder. No sign of acute cholecystitis. If clinically indicated, this can be further characterized with ultrasound. 5. Occasional calcified granulomata again seen in the liver and spleen. 6. Degenerative changes again seen in the spine and bilateral sacroiliac joints. There is been particular progression of degenerative disc height narrowing at L2-3 with anterior fusion of the vertebra at that level. Electronically Signed: Richard Lima MD at 17:50 EDT , Service support , Current Medications Albuterol Sulfate (Ventolin Aerosols) 2.5 mg INHALATION Q2H PRN PRN PRN Reason: SOB/Wheezing Last Admin: 05/30/19 22:27 Dose: 2.5 mg Documented by: Aspirin (Ecotrin) 81 mg PO DAILYCM DAVID Glucagon () 1 mg IM .X1 PRN PRN Reason: Hypoglycemia Guaifenesin (Robitussin) 10 ml PO Q4H PRN PRN PRN Reason: COUGH Heparin Sodium (Porcine) (Heparin Na) 5,000 unit SC Q12 [facility] Last Admin: 05/30/19 21:57 Dose: 5,000 unit Documented by: Sodium Chloride () 1,000 mls @ 50 mls/hr IV .Q20H DAVID Stop: 05/31/19 14:48 Last Infusion: 05/31/19 06:00 Dose: 50 mls/hr Documented by: Piperacillin Sod/Tazobactam (Sod 3.375 gm/ Sodium Chloride) 50 mls @ 12.5 mls/hr IV Q12 [facility] Dextrose (Dextrose 10%-Water) 250 mls @ 999 mls/hr IV .Q16M PRN; Protocol PRN Reason: HYPOGLYCEMIA Insulin Human Lispro (Humalog Kwanastaciapen (Bkc)) 0 unit SC ACHS [facility]; Protocol Last Admin: 05/30/19 21:58 Dose: Not Given Documented by: Nitroglycerin (Nitrostat) 0.4 mg SUBLINGUAL Q5M PRN PRN Reason: CARDIAC/CHEST PAIN Pravastatin Sodium (Pravachol) 80 mg PO QHS [facility] Last Admin: 05/30/19 21:56 Dose: 80 mg Documented by: Prochlorperazine Edisylate (Compazine Iv) 5 mg IV Q4H PRN PRN PRN Reason: Breakthrough Nausea/Vomiting Promethazine HCl (Phenergan) 12.5 mg IV Q6H PRN PRN PRN Reason: Breakthrough Nausea/Vomiting Sacubitril/Valsartan (Entresto 24 Mg-26 Mg Tablet) 1 each PO BID [facility] Last Admin: 05/30/19 21:57 Dose: 1 each Documented by: Senna/Docusate Sodium (Senokot-S, Nita-Colace) 2 tablet PO BID PRN PRN Reason: Constipation Sodium Chloride () 10 - 40 ml IV UD PRN PRN Reason: SALINE FLUSH Ticagrelor (Brilinta) 90 mg PO BID [facility] Last Admin: 05/30/19 21:56 Dose: 90 mg Documented by: Assessment/Plan Active and Suspected Problems (Last Updated 05/17/19 @ 15:23 by Mirella Singletary) Elevated LFTs (Acute) Near syncope (Acute) Dysrhythmia (Acute) RECOMMENDATIONS: 1. Stop continuous supplemental IV fluids. 2. Check coagulation profile, toxicology screen and acetaminophen level. 3. Nephrology consultation to assist with hemodialysis needs. 4. Stop statin, given acute liver injury. 5. Continue dopamine. 6. Recheck liver function profile this afternoon. 7. Obtain echocardiogram. IMPRESSIONS: 1. Leukocytosis/lactic acidemia Unclear etiology for the patient's elevated white blood cell count and lactic acidemia, there does not appear to be a readily identifiable source of infection. Respiratory viral panel was negative. Blood cultures are still pending. We will plan to continue empiric antimicrobials, nonetheless, while awaiting culture results. If negative, antibiotics will be discontinued. No indication to repeat lactate levels, given the patient's underlying liver dysfunction. 2. End-stage renal disease on hemodialysis Consultation placed to nephrology to assist with hemodialysis needs. 3. Acute liver injury Unclear etiology for the patient's acute liver injury. Although this was initially felt to be a possible drug-induced liver injury, the patient reported that he discontinued his amiodarone on his own 2 days after having been discharged from the hospital. He was previously on a statin without any liver injury noted. Acetaminophen level was negative. This morning, the patient has been experiencing a tachy/bradycardia syndrome with transient decompensation in hemodynamics. It is possible that the patient's hemodynamic status may be leading to hypoperfusion and elevation in his liver function profile. INR is also elevated. Given the undifferentiated nature of his liver injury, I would recommend that he be referred to a tertiary care facility for hepatology evaluation. In the interim, we will stabilize his hemodynamics medically. 4. Coronary artery disease/recent STEMI status post PCI/ischemic cardiomyopathy/paroxysmal atrial fibrillation The patient was recently admitted to the hospital with a STEMI, requiring PCI and stent placement. He continues to experience intermittent episodes of profound bradycardia. These episodes do impact his hemodynamic status. The patient has been evaluated by cardiology and placed on a dopamine infusion. Repeat echocardiogram is pending. 5. Anemia/hypertension/hyperlipidemia/CODE STATUS Complicates care, management, recovery and prognosis. Currently holding statin and antihypertensives. CODE STATUS was once again discussed with the patient, especially in light of his cardiac dysrhythmia this morning. The patient once again voiced his desire to remain DNR CCA without plans for intubation. TIME: 42 minutes of critical care time was spent addressing the patient's acute liver injury, bradycardia/tachycardia syndrome, lactic acidemia, end-stage renal disease, coronary artery disease, ischemic cardiomyopathy, review of all data a nd collaboration with care team. ([id number]) This note was generated with [employer] dictation software. It may contain incorrect words, spelling, and punctuation that were not noted in checking the note before signing. [id number] Critical care first hour
[2019-05-31 06:56] LABS: Bedside Glucose 97 mg/dL (70-110)
[2019-05-31 07:20] LABS: International Normalized Ratio 2.1
--- NOTE | 2019-05-31 07:41 | PN_ITS ---
Patient Problems: Active and Suspected Problems (Last Updated 05/17/19 @ 15:23 by Mirella Singletary) Elevated LFTs (Acute) Near syncope (Acute) Vitals/I&O's: Vital Signs Temp Pulse Resp BP Pulse Ox 97.4 F L 94 24 H 144/93 H 98 05/31/19 03:00 05/31/19 06:00 05/31/19 06:00 05/31/19 06:00 05/31/19 06:00 Oxygen Delivery Method Room Air Weight: 79.832 kg Body Mass Index (BMI) 27.6 Finger Stick Blood Glucose 123 Intake and Output for Last 24 Hours 05/29/19 05/30/19 05/31/19 23:59 23:59 23:59 Intake Total 53.33 / 153.33 550 / 550 Output Total 0 / 0 Balance 53.33 / 153.33 550 / 550 Microbiology Past 72 Hours 05/30/19 15:41 Mucosa - Nasopharyngeal Influenza Types A,B Direct FA (ROSALEE) - Final Laboratory Results 05/30/19 14:22: Lipase 68 L 05/30/19 14:42: WBC 25.6 H, RBC 2.87 L, Hgb 9.7 L, Hct 29.9 L, MCV 104.2 H, MCH 33.8 H, MCHC 32.4, RDW Std Deviation 55.3 H, RDW Coeff of Kirsten 14.6, Plt Count 224, MPV 11.8, Immature Gran % (Auto) 1.000 H, Neut % (Auto) 91.5 H, Lymph % (Auto) 2.8 L, [place] % (Auto) 4.3, Eos % (Auto) 0.2, Baso % (Auto) 0.2, Absolute Neuts (auto) 23.4 H, Absolute Lymphs (auto) 0.72 L, Nucleated RBC % 0, Differential Comment SCANNED, Platelet Estimate ADEQUATE, Hypochromasia RARE, Macrocytosis 1+ 05/30/19 14:42: Sodium 135 L, Potassium 5.9 H, Chloride 95 L, Carbon Dioxide 16.0 L, Anion Gap 24 H, BUN 41 H, Creatinine 9.07 H*, Estim Creat Clear Calc 6.58, Est GFR (MDRD) Af Amer 7 L, Est GFR (MDRD) Non-Af 6 L, BUN/Creatinine Ratio 4.5 L, Glucose 173 H, Calcium 9.1, Total Bilirubin 2.80 H, AST 2358 H, ALT 881 H, Alkaline Phosphatase 93, Troponin I 0.691 H*, Total Protein 8.0, Albumin 3.0 L, Globulin 5.0 H, Albumin/Globulin Ratio 0.6 L 05/30/19 14:42: B-Natriuretic Peptide > 5000.0 H 05/30/19 16:05: Lactic Acid 12.7 H* 05/30/19 20:10: Magnesium 2.6, GGT 21, Troponin I 0.695 H* 05/30/19 21:20: Hepatitis A IgM Ab Pending, Hep Bs Antigen Pending, Hep B Core IgM Ab Pending, Hepatitis C Ab (EIA) Pending 05/30/19 21:20: HIV 1&2 Antibody Non-Reactive 05/30/19 21:20: Lactic Acid 6.5 H* 05/30/19 21:53: POC Glucose 110 05/30/19 23:00: Troponin I 0.772 H* 05/30/19 23:00: MRSA (PCR) Negative 05/31/19 02:00: Sodium 137, Potassium 5.5 H, Chloride 97 L, Carbon Dioxide 25.0, Anion Gap 15, BUN 54 H, Creatinine 9.33 H*, Estim Creat Clear Calc 6.40, Est GFR (MDRD) Af Amer 7 L, Est GFR (MDRD) Non-Af 6 L, BUN/Creatinine Ratio 5.8 L, Glucose 90, Calcium 8.8, Total Bilirubin 3.00 H, Direct Bilirubin 1.61 H, AST 5050 H, ALT 2713 H, Alkaline Phosphatase 93, Total Protein 7.4, Albumin 2.9 L, Globulin 4.5 H, TSH 2.24 05/31/19 02:00: WBC 19.3 H, RBC 2.85 L, Hgb 9.5 L, Hct 29.1 L, MCV 102.1 H, MCH 33.3 H, MCHC 32.6, RDW Std Deviation 54.1 H, RDW Coeff of Kirsten 14.6, Plt Count 201, MPV 12.0, Immature Gran % (Auto) 0.600, Neut % (Auto) 91.8 H, Lymph % (Auto) 4.2 L, [place] % (Auto) 3.1, Eos % (Auto) 0.1, Baso % (Auto) 0.2, Absolute Neuts (auto) 17.7 H, Absolute Lymphs (auto) 0.81 L, Nucleated RBC % 0.2 05/31/19 02:00: Troponin I 0.863 H* 05/31/19 02:00: PT 23.0 H, INR 2.1 05/31/19 06:44: POC Glucose 97 Current Medications Albuterol Sulfate (Ventolin Aerosols) 2.5 mg INHALATION Q2H PRN PRN PRN Reason: SOB/Wheezing Last Admin: 05/30/19 22:27 Dose: 2.5 mg Documented by: Aspirin (Ecotrin) 81 mg PO DAILYCM [facility] Glucagon () 1 mg IM .X1 PRN PRN Reason: Hypoglycemia Guaifenesin (Robitussin) 10 ml PO Q4H PRN PRN PRN Reason: COUGH Heparin Sodium (Porcine) (Heparin Na) 5,000 unit SC Q12 [facility] Last Admin: 05/30/19 21:57 Dose: 5,000 unit Documented by: Piperacillin Sod/Tazobactam (Sod 3.375 gm/ Sodium Chloride) 50 mls @ 12.5 mls/hr IV Q12 [facility] Dextrose (Dextrose 10%-Water) 250 mls @ 999 mls/hr IV .Q16M PRN; Protocol PRN Reason: HYPOGLYCEMIA Insulin Human Lispro (Humalog Kwikpen (Bkc)) 0 unit SC ACHS [facility]; Protocol Last Admin: 05/30/19 21:58 Dose: Not Given Documented by: Nitroglycerin (Nitrostat) 0.4 mg SUBLINGUAL Q5M PRN PRN Reason: CARDIAC/CHEST PAIN Prochlorperazine Edisylate (Compazine Iv) 5 mg IV Q4H PRN PRN PRN Reason: Breakthrough Nausea/Vomiting Promethazine HCl (Phenergan) 12.5 mg IV Q6H PRN PRN PRN Reason: Breakthrough Nausea/Vomiting Sacubitril/Valsartan (Entresto 24 Mg-26 Mg Tablet) 1 each PO BID [facility] Last Admin: 05/30/19 21:57 Dose: 1 each Documented by: Senna/Docusate Sodium (Senokot-S, Nita-Colace) 2 tablet PO BID PRN PRN Reason: Constipation Sodium Chloride () 10 - 40 ml IV UD PRN PRN Reason: SALINE FLUSH Ticagrelor (Brilinta) 90 mg PO BID [facility] Last Admin: 05/30/19 21:56 Dose: 90 mg Documented by: STROKE Vital Signs/Narrative: Vital Signs Pulse Resp BP Pulse Ox 05/31/19 06:00 94 24 H 144/93 H 98 05/31/19 05:00 91 17 137/88 H 96 05/31/19 04:00 98 22 H 119/103 H 97 Medical Necessity - Tobacco Use Smoking Status: Never smoker Tobacco Use: Non-smoker Assessment/Plan All Active Problems (Last Updated 05/17/19 @ 15:23 by Mirella Singletary) Elevated LFTs (Acute) Near syncope (Acute) Acute on chronic renal insufficiency (Resolved) Hyperkalemia (Resolved) Left flank pain (Resolved) Problem with dialysis access (Resolved) Uncontrollable nausea and vomiting (Resolved) Patient is a 73-year-old gentleman with recent admission for acute non-STEMI for which he underwent PCI with HASMUKH who presented to the emergency department with increasing shortness of breath. Found to have markedly elevated liver enzymes. Admitted to the intensive care unit for further management Acute hepatitis; 2. Recent non-STEMI involving the posterior lateral wall with stent placement 3. Ischemic cardiomyopathy with an ejection fraction of 25% End-stage renal disease on hemodialysis Wednesdays and Fridays Diabetes mellitus type 2 Anemia of end-stage renal disease Dyslipidemia paroxysmal A. fib Essential Hypertension Active Medications Albuterol Sulfate (Ventolin Aerosols) 2.5 mg INHALATION Q2H PRN PRN PRN Reason: SOB/Wheezing Last Admin: 05/30/19 22:27 Dose: 2.5 mg Documented by: Aspirin (Ecotrin) 81 mg PO DAILYCM [facility] Glucagon () 1 mg IM .X1 PRN PRN Reason: Hypoglycemia Guaifenesin (Robitussin) 10 ml PO Q4H PRN PRN PRN Reason: COUGH Heparin Sodium (Porcine) (Heparin Na) 5,000 unit SC Q12 [facility] Last Admin: 05/30/19 21:57 Dose: 5,000 unit Documented by: Piperacillin Sod/Tazobactam (Sod 3.375 gm/ Sodium Chloride) 50 mls @ 12.5 mls/hr IV Q12 [facility] Dextrose (Dextrose 10%-Water) 250 mls @ 999 mls/hr IV .Q16M PRN; Protocol PRN Reason: HYPOGLYCEMIA Insulin Human Lispro (Humalog Kwikpen (Bkc)) 0 unit SC ACHS [facility]; Protocol Last Admin: 05/30/19 21:58 Dose: Not Given Documented by: Nitroglycerin (Nitrostat) 0.4 mg SUBLINGUAL Q5M PRN PRN Reason: CARDIAC/CHEST PAIN Prochlorperazine Edisylate (Compazine Iv) 5 mg IV Q4H PRN PRN PRN Reason: Breakthrough Nausea/Vomiting Promethazine HCl (Phenergan) 12.5 mg IV Q6H PRN PRN PRN Reason: Breakthrough Nausea/Vomiting Sacubitril/Valsartan (Entresto 24 Mg-26 Mg Tablet) 1 each PO BID [facility] Last Admin: 05/30/19 21:57 Dose: 1 each Documented by: Senna/Docusate Sodium (Senokot-S, Nita-Colace) 2 tablet PO BID PRN PRN Reason: Constipation Sodium Chloride () 10 - 40 ml IV UD PRN PRN Reason: SALINE FLUSH Ticagrelor (Brilinta) 90 mg PO BID [facility] Last Admin: 05/30/19 21:56 Dose: 90 mg Documented by: Clinical Impression(s) from Imaging Studies Chest X-Ray 05/30/19 14:52 IMPRESSION: Stable examination with blunting of the right costophrenic angle and increased markings at the right lung base suggestive of atelectasis. Electronically Signed: Mando Zamorano, at 15:45 EDT , Service support , Liver Ultrasound 05/30/19 15:34 IMPRESSION: There is a thickened appearance of the gallbladder wall which may be partially contracted. On one image there is a suggestion that there may be pericholecystic fluid. There is no definitive evidence of gallstones. This may represent trace ascites. The sonographic Bowles''s sign is described as negative. Cannot include or exclude chronic cholecystitis. Other imaging may be warranted if pain persists. Partially visualized small right effusion. Right renal cortical thinning which may be associated with underlying medical renal disease. Electronically Signed: Mary Honeycutt MD at 16:59 EDT Tel , Service support , Abdomen/Pelvis CT 05/30/19 17:14 IMPRESSION: 1. Atherosclerotic vascular calcifications noted. No demonstrated aortic aneurysm. The heart is borderline to mildly enlarged. 2. Small to moderate right pleural effusion with minimal atelectasis in the right lung base. Infection not excluded. 3. Moderate cortical atrophy of the bilateral kidneys now present. No hydronephrosis. 4. Possible sludge in the gallbladder. No sign of acute cholecystitis. If clinically indicated, this can be further characterized with ultrasound. 5. Occasional calcified granulomata again seen in the liver and spleen. 6. Degenerative changes again seen in the spine and bilateral sacroiliac joints. There is been particular progression of degenerative disc height narrowing at L2-3 with anterior fusion of the vertebra at that level. Electronically Signed: Richard Lima MD at 17:50 EDT , Service support ,
--- NOTE | 2019-05-31 08:31 | EKG12_ITS ---
Test Reason : TACHY Blood Pressure : / mmHG Vent. Rate : 099 BPM Atrial Rate : 099 BPM P-R Int : 080 ms QRS Dur : 158 ms QT Int : 418 ms P-R-T Axes : 080 -53 099 degrees QTc Int : 536 ms Sinus rhythm with short [place] Left axis deviation Right bundle branch block Inferior infarct , age undetermined T wave abnormality, consider lateral ischemia Abnormal ECG When compared with ECG of 30-MAY-2019 14:31, MANUAL COMPARISON REQUIRED, DATA IS UNCONFIRMED Confirmed by LEILANI ARREOLA ([id number]), associate entertainment editor JOSELYN MONTGOMERY ([id number]) on 06/02/2019 7:35:38 AM Referred By: RUDI Confirmed By:LEILANI ARREOLA
--- NOTE | 2019-05-31 08:32 | EKG12_ITS ---
Test Reason : DIZZY, Blood Pressure : / mmHG Vent. Rate : 056 BPM Atrial Rate : 047 BPM P-R Int : 100 ms QRS Dur : 140 ms QT Int : 490 ms P-R-T Axes : 076 -42 104 degrees QTc Int : 472 ms Marked sinus bradycardia with marked sinus arrhythmia 1st degree AV block Left axis deviation Right bundle branch block Inferior infarct , age undetermined T wave abnormality, consider lateral ischemia Abnormal ECG When compared with ECG of 31-MAY-2019 06:31, MANUAL COMPARISON REQUIRED, DATA IS UNCONFIRMED Reconfirmed by LEILANI ARREOLA ([id number]), image editor LAITH OSULLIVAN ([id number]) on 06/02/2019 4:26:29 PM Referred By: VITA Confirmed By:LEILANI ARREOLA
--- NOTE | 2019-05-31 08:37 | NURSING ---
pt c/o sob. po 100%. 2l o2 applied. 0840. pause noted. pt states he felt it. ekg pobtained by jolie campbell. notified. [id number]- dr moncada paged
--- NOTE | 2019-05-31 09:29 | ECHOD_ITS ---
Reason For Study: Arrhythmia Procedure This was a 2D Doppler, Color Flow transthoracic echocardiogram. The study was technically difficult. Exam performed portable in ICU/CCU. Left Ventricle Normal LV size. Severe segmental systolic dysfunction (see wall motion). The estimated ejection fraction is 20 %. Unable to assess diastolic dysfunction. Anterio-Basal: Hypokinetic. Lateral-Basal: Hypokinetic. Posterior-Basal: Severely hypokinetic. Infero-Basal: Akinetic. Basal inferoseptal: Akinetic. Mid-Anterior : Hypokinetic. Mid-Lateral : Akinetic. Mid-Posterior: Akinetic. Mid-Inferior: Akinetic. Anterior [place] : Hypokinetic. Inferior [place] : Akinetic. Lateral [place] : Akinetic. Right Ventricle Normal RV size. Normal systolic function. Atria The left atrium is mildly enlarged. The right atrium is mildly enlarged. No doppler evidence for ASD. Mitral Valve There is no mitral annular calcification. Mild papillary muscle dysfunction of the mitral valve. Mild (1+) mitral valve insufficiency. Tricuspid Valve Normal tricuspid valve. Mild tricuspid valve insufficiency. Right ventricular systolic pressure estimated to be 39 mmHg. Aortic Valve Trisinus/trileaflet aortic valve. Mild focal aortic valve calcification. Pulmonic Valve The pulmonic valve is not well visualized. Great Vessels Normal sized aortic root. Calcified aortic root. Pericardium/Pleural No pericardial effusion. MMode/2D Measurements & Calculations LVIDd: 5.3 cm IVSd: 1.3 cm Ao root diam: 3.3 cm LVIDs: 4.4 cm LVPWd: 0.99 cm LA dimension: 3.4 cm RVDd: 3.3 cm FS: 17.2 % LAV(MOD-bp): 63.6 ml LVAd ap4: 33.5 cm2 SV(MOD-sp4): 35.3 ml LAV(MOD-sp2): 50.1 ml EDV(MOD-sp4): 109.5 ml LAV(MOD-sp4): 61.4 ml EDV(sp4-el): 114.2 ml LVAs ap4: 25.0 cm2 ESV(MOD-sp4): 74.2 ml ESV(sp4-el): 73.0 ml EF(MOD-sp4): 32.2 % EF(sp4-el): 36.1 % SV(sp4-el): 41.2 ml LA A4 area: 22.8 cm2 RA A4 area: 17.0 cm2 Doppler Measurements & Calculations MV E max ron: 141.4 cm/sec Ao V2 max: 124.3 cm/sec LV V1 max: 98.4 cm/sec Ao max P.2 mmHg LV V1 max P.9 mmHg MR max ron: 589.9 cm/sec PA V2 max: 86.7 cm/sec TR max ron: 299.1 cm/sec MR max P.2 mmHg TR max P.8 mmHg MR mean ron: 450.8 cm/sec MR mean P.9 mmHg MR VTI: 147.2 cm Interpretation Summary The study was technically difficult. Severe segmental systolic dysfunction (see wall motion). The estimated ejection fraction is 20 %. The left atrium is mildly enlarged. The right atrium is mildly enlarged. Mild papillary muscle dysfunction of the mitral valve. Mild (1+) mitral valve insufficiency. Mild tricuspid valve insufficiency. Mild focal aortic valve calcification. Calcified aortic root. Right ventricular systolic pressure estimated to be 39 mmHg. Unable to assess diastolic dysfunction. Ordering Physician: Juan Dan Referring Physician: Sean Medina Performed By: Harry Zeng RCS
--- NOTE | 2019-05-31 09:30 | CON.PCM_ITS ---
Problem List (1) Dysrhythmia Status: Acute (2) Non-STEMI (non-ST elevated myocardial infarction) Status: Acute (3) CAD (coronary artery disease) Status: Chronic Qualifiers: Coronary Disease-Associated Artery/Lesion type: [place] artery [place] vs. transplanted heart: [place] heart (4) Presence of stent in coronary artery Status: Chronic Comment: thrombectomy with PTCA with HASMUKH to proximal, mid and distal RCA 03/03; PTCA with stenting to mid & distal RCA 07/05, PTCA of proximal LAD 07/05; Successful PTCA/HASMUKH of the of proxima RCA in stent restenosis, utilizing a 2.0 x 12 Angiosculpt, followed by a 3.0 x 33 Elunira HASMUKH; 85%-->0%, no dissection.Successful PTCA/HASMUKH of the mid LPL branch of the LCX with a 3.0 x 16 Promus Synergy; 75%-->0%, no dissection; Successful PTCA/HASMUKH of the mid LCX with a 2.75 x 16 Promus Synergy; 75%-->0%, no dissection. No PCI of smal OM branch perfomed due to small vessel disease. 05/20/18; Successful PTCA/HASMUKH proximal LCX with a 3.0 x 16 Promus Synergy, 85%-->0%, no dissection. Successful PTCA/HASMUKH mid RCA ISR with a 2.5 x 10 Angiosculpt, followed with a 3.0 x 38 Promus Synergy, post dilated with a 3.0 and 3.5 x 12 NC balloon; 85%-->0%, no dissection. 10/28/18; Successful PTCA of stent thrombosis/restenosis in mid RCA. per cath 12/01/18 Successful PTCA/HASMUKH emergent heparin/Integrilin bolus assisted PCI to mid LCX with a 2.5 x 16 Promus Synergy, post dilated with a 3.0 x 8 NC balloon using double wire technique; 100%-->0%, no dissection. Successful PTCA/HASMUKH to mid RCA with a 2.5 x 10 Angiosculpt, followed by a 2.5 x 14 Resolute, post dilated with a 3.0 x 8 NC baloon; 90%-->0%, no dissection. Successful PTCA/HASMUKH PCI with 2.5 x 10 Angiosculpt to proximal RCA, followed with a 3.0 x 15 Resolute HASMUKH, post dilated throughout with a 3.0 x 8 NC Balloon; 75%-->0%, no dissection. per cath 05/16/19 (5) Ischemic cardiomyopathy Status: Chronic (6) HLD (hyperlipidemia) Status: Chronic Qualifiers: Hyperlipidemia type: unspecified Qualified Code(s): E78.5 - Hyperlipidemia, unspecified (7) Essential hypertension Status: Chronic (8) Type II diabetes mellitus Status: Chronic Qualifiers: Diabetes mellitus jail insulin use: without jail use Diabetes mellitus complication status: with circulatory complication Diabetes mellitus complication detail: with other circulatory complications Qualified Code(s): E11.59 - Type 2 diabetes mellitus with other circulatory complications (9) ESRD (end stage renal disease) on dialysis Status: Chronic (10) Elevated LFTs Status: Acute (11) Non compliance w medication regimen Status: Chronic Reason for Consult Date of Consultation: 05/31/19 History of Present Illness: The patient is a 73 year old with an extensive cardiovascular history which has included underlying CAD, AZ, ischemic mediated cardiomyopathy, chronic systolic mediated CHF, status post PCI, paroxysmal atrial fibrillation, hyperlipidemia, hypertension, superimposed upon diabetes mellitus and chronic renal insufficiency on chronic hemodialysis who is now referred for additional cardiovascular/cardiac dysrhythmia findings with concerns of sinus rhythm with ventricular standstill and associated hypotension. The patient states since her his recent hospitalization, after being home approximately 2 days, he altered his medical regimen himself. He states he decided to stop his amiodarone therapy. He states he has continued his other medications. He notes that at home he has felt weak and had episodes of being lightheaded and dizzy as well as short of breath. He does not recall having any recurrent chest discomfort. He does not recall have any acute orthopnea or PND or peripheral pitting edema. Based upon his symptoms he presented to the hospital for further evaluation. On his evaluation he was noted to have marked abnormal laboratory studies which included concerns of his cardiovascular status, renal status, hepatic status, and lactic acidosis. He was placed in the ICU for further evaluation and care. Earlier today he demonstrated episodes of what appeared to be sinus rhythm with ventricular standstill and associated hypotension. During this time he became very weak but did not lose consciousness. He was treated with IV atropine and had return of sinus rhythm and return of his blood pressure. However he experienced a second similar type episode. He was once again treated with IV atropine with no significant response. He was placed on IV dopamine and had increase in his heart rate and his blood pressure and resolution of his symptoms. He has also been receiving hemodialysis. He is now pending transfer to [facility] for further evaluation and care of his complex cardiovascular/medical disease process including his marked elevation of his hepatic studies. [] Past Medical History Allergies/Adverse Reactions: Allergies codeine Allergy (Verified 05/30/19 14:22) Itching Home Medications: Ambulatory Orders Medication Instructions Recorded Aspirin [Low Dose Aspirin EC] 81 mg PO DAILY #30 05/19/19 Nitroglycerin (INPATIENT USE) 0.4 mg SUBLINGUAL Q5M PRN #30 05/19/19 [Nitrostat] tab.subl Ticagrelor [Brilinta] 90 mg PO BID #60 tab 05/19/19 Albuterol Sulfate [Proair Hfa] 1 - 2 inh IH Q4H PRN PRN 05/30/19 Pravastatin Sodium 80 mg PO QHS 05/30/19 Sacubitril/Valsartan 24/26 mg 1 tab PO BID 05/30/19 [Entresto 24 mg-26 mg Tablet] DOPamine IV 800 mg CONT INF .[id number] iv.soln. 05/31/19 Piperacil/Tazobactam [Zosyn] 3.375 gm IV Q12 vial 05/31/19 Past Medical History (Chronic Problems): Chronic Problems (Last Updated 05/17/19 @ 15:23 by Mirella Singletary) CAD (coronary artery disease) (Chronic) Non compliance w medication regimen (Chronic) Depression (Chronic) Presence of stent in coronary artery (Chronic ~05/16/19) thrombectomy with PTCA with HASMUKH to proximal, mid and distal RCA 03/03; PTCA with stenting to mid & distal RCA 07/05, PTCA of proximal LAD 07/05; Successful PTCA/HASMUKH of the of proxima RCA in stent restenosis, utilizing a 2.0 x 12 Angiosculpt, followed by a 3.0 x 33 Elunira HASMUKH; 85%-->0%, no dissection.Successful PTCA/HASMUKH of the mid LPL branch of the LCX with a 3.0 x 16 Promus Synergy; 75%-->0%, no dissection; Successful PTCA/HASMUKH of the mid LCX with a 2.75 x 16 Promus Synergy; 75%-->0%, no dissection. No PCI of smal OM branch perfomed due to small vessel disease. 05/20/18; Successful PTCA/HASMUKH proximal LCX with a 3.0 x 16 Promus Synergy, 85%-->0%, no dissection. Successful PTCA/HASMUKH mid RCA ISR with a 2.5 x 10 Angiosculpt, followed with a 3.0 x 38 Promus Synergy, post dilated with a 3.0 and 3.5 x 12 NC balloon; 85%-->0%, no dissection. 10/28/18; Successful PTCA of stent thrombosis/restenosis in mid RCA. per cath 12/01/18 Successful PTCA/HASMUKH emergent heparin/Integrilin bolus assisted PCI to mid LCX with a 2.5 x 16 Promus Synergy, post dilated with a 3.0 x 8 NC balloon using double wire technique; 100%-->0%, no dissection. Successful PTCA/HASMUKH to mid RCA with a 2.5 x 10 Angiosculpt, followed by a 2.5 x 14 Resolute, post dilated with a 3.0 x 8 NC baloon; 90%-->0%, no dissection. Successful PTCA/HASMUKH PCI with 2.5 x 10 Angiosculpt to proximal RCA, followed with a 3.0 x 15 Resolute HASMUKH, post dilated throughout with a 3.0 x 8 NC Balloon; 75%-->0%, no dissection. 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) Antihyperlipidemic Family history of hypertension (Chronic) Other secondary pulmonary hypertension (Chronic) Subendocardial ischemia (Chronic) Ischemic cardiomyopathy (Chronic) Nonrheumatic mitral valve regurgitation (Chronic) Rheumatic tricuspid insufficiency (Chronic) Paroxysmal atrial fibrillation (Chronic) Atherosclerotic heart disease of [place] coronary artery without angina pectoris (Chronic) PTCA/HASMUKH to proximal RCA, mid LPL branch of the LCx, in mid LCx in April 2017; angioplasty and PCI to mid and distal RCA in 2014; thrombectomy and PCI to proximal, mid, and distal RCA in 2011; Type II diabetes mellitus (Chronic) Hyperlipidemia associated with type 2 diabetes mellitus (Chronic) HLD (hyperlipidemia) (Chronic) Surgical History: angioplasty - PCI x 11, most recently 11/2018., - - Significant PCI history, most recently 11/2018 with total PCI x 11 per patient report, 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 Psychiatric History: Anxiety - *Family History Maternal Family History: Family History (Last Reviewed 09/30/18 @ 13:10 by Mirella Singletary) Mother Breast cancer Myocardial infarction CAD (coronary artery disease) Father Colon cancer Hypertension Myocardial infarction Other Family history of hypertension History Items: Cancer, Heart Disease, Hypertension Paternal Family History: Family History (Last Reviewed 09/30/18 @ 13:10 by Mirella Singletary) Mother Breast cancer Myocardial infarction CAD (coronary artery disease) Father Colon cancer Hypertension Myocardial infarction Other Family history of hypertension History Items: Cancer, Heart Disease, Hypertension Smoking Status: Never smoker Tobacco Use: Non-smoker Review of Systems - Review of Systems General: Reports: Fatigue. Denies: Fever, Night Sweats Cardiovascular: Reports: Shortness of Breath, Lightheadedness, Near Syncope. Denies: Chest Discomfort, Orthopnea, PND, Peripheral Edema, Palpitations, Dizziness, Syncope Respiratory: Reports: Shortness of Breath. Denies: Cough, Sputum Production, Hemoptysis Gastrointestinal: Reports: Abdominal Discomfort. Denies: Hematemesis, Hematochezia, Melena Genitourinary: Denies: Dysuria, Hematuria Skin: Denies: Rash Subjectve: This is a 73-year-old white male who appears to be resting comfortably at the moment in the ICU. Objective: Vital Signs Temp Pulse Resp BP Pulse Ox 97.3 F L 107 H 105 H 121/106 H 100 05/31/19 08:05 05/31/19 09:00 05/31/19 09:00 05/31/19 09:00 05/31/19 09:00 Oxygen Flow Rate (L/min) 2 Oxygen Delivery Method Nasal Cannula Weight: 179 lb 6 oz Body Mass Index (BMI) 27.6 Finger Stick Blood Glucose 123 Intake and Output for Last 24 Hours 05/29/19 05/30/19 05/31/19 23:59 23:59 23:59 Intake Total 53.33 / 153.33 550 / 550 Output Total 0 / 0 Balance 53.33 / 153.33 550 / 550 General: Awake, Alert, Oriented x 3, Cooperative, Ill Appearing HEENT: Atraumatic, Normocephalic, PERRL, EOMI, Sclera Non Icteric Oral: Moist Mucosa Neck: Supple, Good ROM Lungs: Clear to auscultation Cardiovascular: Regular Rhythm, Normal S1, Normal S2 Abdomen: Bowel Sounds Present, Soft, Distended, - - Positive tenderness to palpation Extremities: No edema Psych/Mental Status: Appropriate 05/30/19 14:42: WBC 25.6 H, RBC 2.87 L, Hgb 9.7 L, Hct 29.9 L, MCV 104.2 H, MCH 33.8 H, MCHC 32.4, Plt Count 224, MPV 11.8, Immature Gran % (Auto) 1.000 H, Neut % (Auto) 91.5 H, Lymph % (Auto) 2.8 L, [place] % (Auto) 4.3, Eos % (Auto) 0.2, Baso % (Auto) 0.2, Absolute Neuts (auto) 23.4 H, Nucleated RBC % 0 05/30/19 14:42: Sodium 135 L, Potassium 5.9 H, Chloride 95 L, Carbon Dioxide 16.0 L, Anion Gap 24 H, BUN 41 H, Creatinine 9.07 H*, Est GFR (MDRD) Af Amer 7 L , Est GFR (MDRD) Non-Af 6 L, BUN/Creatinine Ratio 4.5 L, Glucose 173 H, Calcium 9.1, Total Bilirubin 2.80 H, Troponin I 0.691 H* 05/30/19 14:42: B-Natriuretic Peptide > 5000.0 H 05/30/19 16:05: Lactic Acid 12.7 H* 05/30/19 20:10: Magnesium 2.6, Troponin I 0.695 H* 05/30/19 21:20: Lactic Acid 6.5 H* 05/30/19 23:00: Troponin I 0.772 H* 05/31/19 02:00: Sodium 137, Potassium 5.5 H, Chloride 97 L, Carbon Dioxide 25.0, Anion Gap 15, BUN 54 H, Creatinine 9.33 H*, Est GFR (MDRD) Af Amer 7 L, Est GFR (MDRD) Non-Af 6 L, BUN/Creatinine Ratio 5.8 L, Glucose 90, Calcium 8.8, Total Bilirubin 3.00 H, Direct Bilirubin 1.61 H 05/31/19 02:00: WBC 19.3 H, RBC 2.85 L, Hgb 9.5 L, Hct 29.1 L, MCV 102.1 H, MCH 33.3 H, MCHC 32.6, Plt Count 201, MPV 12.0, Immature Gran % (Auto) 0.600, Neut % (Auto) 91.8 H, Lymph % (Auto) 4.2 L, Sab[place] % (Auto) 3.1, Eos % (Auto) 0.1, Baso % (Auto) 0.2, Absolute Neuts (auto) 17.7 H, Nucleated RBC % 0.2 05/31/19 02:00: Troponin I 0.863 H* 05/31/19 02:00: PT 23.0 H, INR 2.1 Rhythm: Sinus rhythm; episodes of sinus rhythm with subsequent ventricular standstill EKG: Sinus rhythm with prolonged CT interval with left axis deviation; right bundle branch block; inferior AZ of indeterminate age; T wave abnormality potentially compatible with myocardial ischemia-lateral ECHO: 05-18-2019 Interpretation Summary Mild concentric left ventricular hypertrophy. Moderately dilated left ventricle. The estimated ejection fraction is 25 %. Stage 1 diastolic dysfunction. Mild-Moderate (1-2+) posteriorly directed mitral valve insufficiency. Mild (1+) tricuspid valve insufficiency. Right ventricular systolic pressure estimated to be 40 mmHg. Mild pulmonary hypertension. Compared to echo results dated 10/28/2018 LV function has deteriorated from 45% to 25%, unable to calculate RVSP at that time. Stress Test: Stress Test Report Date: 05/15/2017 Procedure: Pharmacologic stress nuclear imaging study Indications: Chest pain; shortness of breath; CAD; AZ; status post PCI Consent: Per the patient Procedure: The patient underwent pharmacologic (Regadenoson) evaluation with a peak heart rate of 101 per minute (68% predicted maximal heart rate) and a peak blood pressure of 142/76 mmHg. The baseline ECG demonstrated normal sinus rhythm; right bundle branch block pattern; nonspecific ST and T-wave abnormality. The peak pharmacologic ECG demonstrated no obvious ECG changes. There were no cardiac dysrhythmias pretest, during pharmacologic infusion, or recovery. There was no complaint of chest discomfort during pharmacologic infusion or recovery. The examination was discontinued secondary to completion of protocol. Impression: 1. Pharmacologic (Regadenoson) evaluation 2. Peak pharmacologic ECG with with continued right bundle branch block pattern with nonspecific ST and T-wave abnormality with no obvious ECG changes. 3. No cardiac dysrhythmias pretest, during pharmacologic infusion, or recovery 4. Nuclear images pending Myocardial perfusion imaging study: Technique: The patient was injected with 11.1 millicuries of technetium 99m Cardiolite and subsequently rest SPECT Cardiolite nuclear imaging was obtained in the horizontal long, vertical long, and short axis views. The patient underwent pharmacologic (Regadenoson) evaluation with a peak heart rate of 101 per minute (68% predicted maximal heart rate) and a peak blood pressure of 42/76 mmHg. the patient was injected with 33.8 millicuries of technetium 99m Cardiolite and subsequently stress SPECT Cardiolite nuclear imaging was obtained in the horizontal long, vertical long, and short axis views. A gated Cardiolite study at peak stress was obtained. Interpretation: Rest and stress SPECT Cardiolite nuclear imaging status post realignment, normalization, and attenuation correction demonstrate status post stress and area of diminished tracer uptake in portions of the mid inferolateral segments. There is diminished end-systolic thickening and brightening in the aforementioned areas. The gated Cardiolite study demonstrates diminished myocardial thickening and end were wall motion especially in the aforementioned areas. The reported LVEF is 30%. Impression: 1. Rest and stress SPECT currently nuclear imaging demonstrate myocardial perfusion changes appearing compatible with an area of stress-induced myocardial ischemia involving portions of the mid inferolateral segments. 2. The gated Cardiolite study reports an LVEF of 30%. Cardiac Cath / PCI: 05-16-2019 CONCLUSIONS Global LV systolic dysfunction- Severe LVEF: by LV gram 20-25 % Depressed Left Ventricular systolic function - Severe Elevated Left Ventricular End Diastolic Pressure Double vessel CAD of the LCX and RCA Non obstructive coronary arteries Successful PTCA/HASMUKH emergent heparin/Integrilin bolus assisted PCI to mid LCX with a 2.5 x 16 Promus Synergy, post dilated with a 3.0 x 8 NC balloon using double wire technique; 100%-->0%, no dissection. Successful PTCA/HASMUKH to mid RCA with a 2.5 x 10 Angiosculpt, followed by a 2.5 x 14 Resolute, post dilated with a 3.0 x 8 NC baloon; 90%-->0%, no dissection. Successful PTCA/HASMUKH PCI with 2.5 x 10 Angiosculpt to proximal RCA, followed with a 3.0 x 15 Resolute HASMUKH, post dilated throughout with a 3.0 x 8 NC Balloon; 75%-->0%, no dissection. RECOMMENDATIONS Referred for immediate PCI Highly recommend quitting all tobacco products Follow up with primary nursing home assistant administrator Risk factor modification ASA Indefinitley Plavix for at least 12 months Routine post interventional care Refer for Outpatient Cardiac Rehab Manual sheath removal per protocol Follow up with Dr. Dan Manual sheath removal once ACT<150; unable to use IABP due to extreme aorto- iliac tortuosity and access in R profunda. asa/brilinta for life. 2D echo in am. d/w Raleigh Cole and Alvarez. It appears STEMI delay was due to ER attending to multiple critically ill people simultaneously. CORONARY ANGIOGRAPHY DOMINANCE: Co- Dominant LEFT HEART ASSESSMENT Left Ventricular Ejection Fraction: by LV Gram 20-25 % Depressed Left Ventricular systolic function LVEDP: 25 mmHg Elevated Left Ventricular End Diastolic Pressure Global Hypokinesis - Severe LEFT MAIN: Non-obstructive LEFT ANTERIOR DESCENDING ARTERY: PROX LAD: Previously placed stent is patent MID LAD: Mild luminal irregularities less than 30% CIRCUMFLEX ARTERY: MID CIRC: Previously placed stent is occluded RIGHT CORONARY ARTERY: PROX RCA: Instent restenosis 75 % MID RCA: Instent restenosis 90 % CXR: Preliminary evaluation: Blunting of the right costophrenic angle: Please see official report Assessment/Plan 1. Cardiac dysrhythmia The patient does have an underlying cardiac dysrhythmia history. He has had paroxysmal atrial fibrillation. Now he has had episodes of what appears to be sinus rhythm with ventricular standstill with associated hypotension and symptoms. Is unclear whether this is related to his medical therapy. However he did state he stopped his antiarrhythmic therapy/amiodarone therapy after 2 days at home. There may be concern as to whether this could be ischemic mediated. He does have underlying CAD. It is unclear whether or not he has had progression of his RCA disease it could be affecting his conduction system. At the present time he is being monitored. He has required continued medical management/support. This was included IV dopamine to support his heart rate and rhythm and blood pressure. Depending upon his course he may or may not need temporary and/or permanent pacemaker/ICD support-as he has diminished LV systolic function. 2. Non-ST segment elevation AZ He does have a non-ST segment elevation [place] based on cardiac enzymes. Is unclear whether this is primary or secondary as a type II supply demand mismatch event. At the present time he will continue his medical therapy. An echocardiogram has been requested to reassess his left ventricular wall motion and systolic function. He will continue further evaluation as deemed appropriate. He may need repeat diagnostic cardiac catheterization. Based upon his high risk state based upon his complex cardiovascular/medical history, his elevated INR secondary to his hepatic insufficiency, his markedly elevated hepatic transaminases, etc., this may need to be performed at a tertiary care center. 3. CAD status post PCI He is undergone evaluation care of his complex CAD in the past. He is required PCI. He claims he has been taking his other medications as prescribed. Again there is concern whether his CAD has progressed and contributing to his current findings. He will continue supportive care. He may need repeat evalu ation with cardiac catheterization as noted above. 4. Ischemic mediated cardiomyopathy He does have a history of an underlying ischemic mediated cardiomyopathy. His LV systolic function has been markedly diminished. He will continue supportive care. He will have follow-up echocardiogram to reassess his left ventricular wall motion systolic function. Depending upon his findings he may need ICD support. 5. Hyperlipidemia He will continue evaluation care as deemed appropriate. 6. Hypertension His blood pressure is low. He is required IV dopamine to help support his cardiac rate and rhythm. 7. Diabetes mellitus He will continue evaluation care per internal medicine. 8. End-stage renal disease with chronic hemodialysis He will continue evaluation care per nephrology. 9. Hepatic insufficiency His hepatic transaminases and INR are elevated. It is unclear as to the exact etiology. There is a question whether this could be medication related although he did stop his amiodarone therapy 2 days after being home or whether this could be ischemic mediated with poor perfusion and a shock liver . At the present time he is continuing supportive care. An attempt is being made to have the patient transferred to a tertiary care center for further GI/hepatic evaluation and care. 10. Noncompliance The patient does have a history of being noncompliant with medications, dialysis, etc. At the present time the patient will continue in the ICU. He will continue to be monitored. He will continue noninvasive evaluation. He will continue supportive medical therapy as deemed appropriate. He is pending transfer to the [facility] for further evaluation and care. Comment: The patient's case has been discussed and reviewed with the patient and Drs. Pacheco and Ciro. This note was generated using a voice recognition system and there may be incorrect words, spelling or punctuation that were not noted when reviewing the office note prior to saving.
--- NOTE | 2019-05-31 09:32 | CASEMGMT ---
Insurance Review for IN-network facilities for [facility] insurance is as follows: [facility] ([place]), [facility] ([facility]), [facility], [facility], [facility], [facility], [facility], [facility], and [facility] Alexandra VENEGAS RN CM
[2019-05-31] MEDS: DOPamine IV 800 MG/250 ML IV.SOLN. 15.3 MG CONT INF (09:45)
[2019-05-31] MEDS: Atropine Sulfate 1 MG/10 ML Syringe IV ×2 (09:58)
[2019-05-31 09:59] LABS: Acetaminophen (Tylenol) Level < 2.0 ug/mL (10.0-30.0)
--- NOTE | 2019-05-31 11:39 | DCINST_ITS ---
- Discharge Diagnoses Current Active Problems: Current Active and Chronic Problems (Last Updated 05/17/19 @ 15:23 by Mirella Singletary) Elevated LFTs (Acute) Near syncope (Acute) Dysrhythmia (Acute) CAD (coronary artery disease) (Chronic) You will use the following diet at home:: Calorie/Carbohydrate Controlled (specify 1200, 1400, etc), Renal (restricted protein/sodium) Allergies/Adverse Reactions: Allergies codeine Allergy (Verified 05/30/19 14:22) Itching Medications to take at Discharge Aspirin [Low Dose Aspirin EC] 81 mg PO DAILY #30 05/19/19 Nitroglycerin (INPATIENT USE) [Nitrostat] 0.4 mg SUBLINGUAL Q5M PRN #30 tab.subl 05/19/19 Ticagrelor [Brilinta] 90 mg PO BID #60 tab 05/19/19 Albuterol Sulfate [Proair Hfa] 1 - 2 inh IH Q4H PRN PRN 05/30/19 Pravastatin Sodium 80 mg PO QHS 05/30/19 Sacubitril/Valsartan 24/26 mg [Entresto 24 mg-26 mg Tablet] 1 tab PO BID 05/30/19 DOPamine IV 800 mg CONT INF .[id number] iv.soln. 05/31/19 Piperacil/Tazobactam [Zosyn] 3.375 gm IV Q12 vial 05/31/19 Primary Care Physician: Sean Medina MD [Primary Care Provider] - Please follow up with your Primary Care Physician in: after Discharge from the [facility] Test Results: Test results from this visit will be discussed in further detail at your follow- up appointment, if applicable. Proposed Discharge Date: 05/31/19
--- NOTE | 2019-05-31 11:51 | PCM.DC.SUM ---
Discharge Date and Diagnosis - Problem List Patient Problems: Active and Suspected Problems (Last Updated 05/17/19 @ 15:23 by Mirella Singletary) Elevated LFTs (Acute) Near syncope (Acute) Dysrhythmia (Acute) Date of Admission: 05/30/19 Date of Discharge: 05/31/19 - Primary Discharge Diagnosis Active and Suspected Problems (Last Updated 05/17/19 @ 15:23 by Mirella Singletary) Elevated LFTs (Acute) Near syncope (Acute) Dysrhythmia (Acute) - Secondary Discharge Diagnosis Chronic Problems (Last Updated 05/17/19 @ 15:23 by Mirella Singletary) CAD (coronary artery disease) (Chronic) Non compliance w medication regimen (Chronic) Depression (Chronic) Presence of stent in coronary artery (Chronic ~05/16/19) thrombectomy with PTCA with HASMUKH to proximal, mid and distal RCA 03/03; PTCA with stenting to mid & distal RCA 07/05, PTCA of proximal LAD 07/05; Successful PTCA/HASMUKH of the of proxima RCA in stent restenosis, utilizing a 2.0 x 12 Angiosculpt, followed by a 3.0 x 33 Elunira HASMUKH; 85%-->0%, no dissection.Successful PTCA/HASMUKH of the mid LPL branch of the LCX with a 3.0 x 16 Promus Synergy; 75%-->0%, no dissection; Successful PTCA/HASMUKH of the mid LCX with a 2.75 x 16 Promus Synergy; 75%-->0%, no dissection. No PCI of smal OM branch perfomed due to small vessel disease. 05/20/18; Successful PTCA/HASMUKH proximal LCX with a 3.0 x 16 Promus Synergy, 85%-->0%, no dissection. Successful PTCA/HASMUKH mid RCA ISR with a 2.5 x 10 Angiosculpt, followed with a 3.0 x 38 Promus Synergy, post dilated with a 3.0 and 3.5 x 12 NC balloon; 85%-->0%, no dissection. 10/28/18; Successful PTCA of stent thrombosis/restenosis in mid RCA. per cath 12/01/18 Successful PTCA/HASMUKH emergent heparin/Integrilin bolus assisted PCI to mid LCX with a 2.5 x 16 Promus Synergy, post dilated with a 3.0 x 8 NC balloon using double wire technique; 100%-->0%, no dissection. Successful PTCA/HASMUKH to mid RCA with a 2.5 x 10 Angiosculpt, followed by a 2.5 x 14 Resolute, post dilated with a 3.0 x 8 NC baloon; 90%-->0%, no dissection. Successful PTCA/HASMUKH PCI with 2.5 x 10 Angiosculpt to proximal RCA, followed with a 3.0 x 15 Resolute HASMUKH, post dilated throughout with a 3.0 x 8 NC Balloon; 75%-->0%, no dissection. per cath 05/16/19 Essential hypertension (Chronic) ESRD (end stage renal disease) on dialysis (Chronic) Old myocardial infarction (Chronic) Inferior CA, anterior CA 07/05 [place] [employer] agent use of drug (Chronic) Antihyperlipidemic Family history of hypertension (Chronic) Other secondary pulmonary hypertension (Chronic) Subendocardial ischemia (Chronic) Ischemic cardiomyopathy (Chronic) Nonrheumatic mitral valve regurgitation (Chronic) Rheumatic tricuspid insufficiency (Chronic) Paroxysmal atrial fibrillation (Chronic) Atherosclerotic heart disease of [place] coronary artery without angina pectoris (Chronic) PTCA/HASMUKH to proximal RCA, mid LPL branch of the LCx, in mid LCx in April 2017; angioplasty and PCI to mid and distal RCA in 2014; thrombectomy and PCI to proximal, mid, and distal RCA in 2011; Type II diabetes mellitus (Chronic) Hyperlipidemia associated with type 2 diabetes mellitus (Chronic) HLD (hyperlipidemia) (Chronic) Hospital Course and Treatment Imaging Results: Laboratory Tests 05/31/19 05/31/19 05/31/19 Range/Units 08:40 06:44 02:00 WBC (4.4-11.0) K/mm3 RBC (4.6-6.2) M/mm3 Hgb (13.0-16.5) g/dL Hct (40-54) % MCV (80-94) fL MCH (27.0-32.0) pg MCHC (32-36) g/dL RDW Std Deviation (35.1-43.9) fl RDW Coeff of Kirsten (11.6-14.6) % Plt Count (150-450) K/mm3 MPV (6.2-12.0) fl Immature Gran % (Auto) (0.0-0.9) % Neut % (Auto) (47-70) % Lymph % (Auto) (19-41) % [place] % (Auto) (0-10) % Eos % (Auto) (0-5) % Baso % (Auto) (0-1) % Absolute Neuts (auto) (2.0-7.7) X10^3/uL Absolute Lymphs (auto) (0.83-4.51) X10^3/uL Nucleated RBC % (0-5) % Differential Comment Platelet Estimate (ADEQ) Hypochromasia Macrocytosis PT 23.0 H (11.7-14.9) SECONDS INR 2.1 Sodium (136-145) mmol/L Potassium (3.5-5.1) mmol/L Chloride (98-107) mmol/L Carbon Dioxide (21.0-32.0) mmol/L Anion Gap (5-15) BUN (7-18) mg/dL Creatinine (0.70-1.30) mg/dL Estim Creat Clear Calc ml/min Est GFR (MDRD) Af Amer (>60) mL/min Est GFR (MDRD) Non-Af (>60) mL/min BUN/Creatinine Ratio (10-20) RATIO Glucose (74-106) mg/dL Lactic Acid (0.4-1.9) mmol/L Calcium (8.5-10.1) mg/dL Magnesium (1.6-2.6) mg/dL Total Bilirubin (0.20-1.00) mg/dL Direct Bilirubin (0.00-0.30) mg/dL GGT (15-85) U/L AST (15-37) U/L ALT (16-61) U/L Alkaline Phosphatase (45-117) U/L Troponin I (<0.045) ng/mL B-Natriuretic Peptide (0-100) pg/mL Total Protein (6.4-8.2) g/dL Albumin (3.2-5.0) g/dL Globulin (2.2-4.2) g/dL Albumin/Globulin Ratio (0.9-2.4) RATIO Lipase (73-393) U/L TSH (0.358-3.74) uIU/mL Acetaminophen < 2.0 L (10.0-30.0) ug/mL HIV 1&2 Antibody (Nonreactive) MRSA (PCR) (Negative) POC Glucose 97 (70-110) mg/dL 05/31/19 05/31/19 05/31/19 Range/Units 02:00 02:00 02:00 WBC 19.3 H (4.4-11.0) K/mm3 RBC 2.85 L (4.6-6.2) M/mm3 Hgb 9.5 L (13.0-16.5) g/dL Hct 29.1 L (40-54) % MCV 102.1 H (80-94) fL MCH 33.3 H (27.0-32.0) pg MCHC 32.6 (32-36) g/dL RDW Std Deviation 54.1 H (35.1-43.9) fl RDW Coeff of Kirsten 14.6 (11.6-14.6) % Plt Count 201 (150-450) K/mm3 MPV 12.0 (6.2-12.0) fl Immature Gran % (Auto) 0.600 (0.0-0.9) % Neut % (Auto) 91.8 H (47-70) % Lymph % (Auto) 4.2 L (19-41) % [place] % (Auto) 3.1 (0-10) % Eos % (Auto) 0.1 (0-5) % Baso % (Auto) 0.2 (0-1) % Absolute Neuts (auto) 17.7 H (2.0-7.7) X10^3/uL Absolute Lymphs (auto) 0.81 L (0.83-4.51) X10^3/uL Nucleated RBC % 0.2 (0-5) % Differential Comment Platelet Estimate (ADEQ) Hypochromasia Macrocytosis PT (11.7-14.9) SECONDS INR Sodium 137 (136-145) mmol/L Potassium 5.5 H (3.5-5.1) mmol/L Chloride 97 L (98-107) mmol/L Carbon Dioxide 25.0 (21.0-32.0) mmol/L Anion Gap 15 (5-15) BUN 54 H (7-18) mg/dL Creatinine 9.33 H* (0.70-1.30) mg/dL Estim Creat Clear Calc 6.40 ml/min Est GFR (MDRD) Af Amer 7 L (>60) mL/min Est GFR (MDRD) Non-Af 6 L (>60) mL/min BUN/Creatinine Ratio 5.8 L (10-20) RATIO Glucose 90 (74-106) mg/dL Lactic Acid (0.4-1.9) mmol/L Calcium 8.8 (8.5-10.1) mg/dL Magnesium (1.6-2.6) mg/dL Total Bilirubin 3.00 H (0.20-1.00) mg/dL Direct Bilirubin 1.61 H (0.00-0.30) mg/dL GGT (15-85) U/L AST 5050 H (15-37) U/L ALT 2713 H (16-61) U/L Alkaline Phosphatase 93 (45-117) U/L Troponin I 0.863 H* (<0.045) ng/mL B-Natriuretic Peptide (0-100) pg/mL Total Protein 7.4 (6.4-8.2) g/dL Albumin 2.9 L (3.2-5.0) g/dL Globulin 4.5 H (2.2-4.2) g/dL Albumin/Globulin Ratio (0.9-2.4) RATIO Lipase (73-393) U/L TSH 2.24 (0.358-3.74) uIU/mL Acetaminophen (10.0-30.0) ug/mL HIV 1&2 Antibody (Nonreactive) MRSA (PCR) (Negative) POC Glucose (70-110) mg/dL 05/30/19 05/30/19 05/30/19 Range/Units 23:00 23:00 21:53 WBC (4.4-11.0) K/mm3 RBC (4.6-6.2) M/mm3 Hgb (13.0-16.5) g/dL Hct (40-54) % MCV (80-94) fL MCH (27.0-32.0) pg MCHC (32-36) g/dL RDW Std Deviation (35.1-43.9) fl RDW Coeff of Kirsten (11.6-14.6) % Plt Count (150-450) K/mm3 MPV (6.2-12.0) fl Immature Gran % (Auto) (0.0-0.9) % Neut % (Auto) (47-70) % Lymph % (Auto) (19-41) % [place] % (Auto) (0-10) % Eos % (Auto) (0-5) % Baso % (Auto) (0-1) % Absolute Neuts (auto) (2.0-7.7) X10^3/uL Absolute Lymphs (auto) (0.83-4.51) X10^3/uL Nucleated RBC % (0-5) % Differential Comment Platelet Estimate (ADEQ) Hypochromasia Macrocytosis PT (11.7-14.9) SECONDS INR Sodium (136-145) mmol/L Potassium (3.5-5.1) mmol/L Chloride (98-107) mmol/L Carbon Dioxide (21.0-32.0) mmol/L Anion Gap (5-15) BUN (7-18) mg/dL Creatinine (0.70-1.30) mg/dL Estim Creat Clear Calc ml/min Est GFR (MDRD) Af Amer (>60) mL/min Est GFR (MDRD) Non-Af (>60) mL/min BUN/Creatinine Ratio (10-20) RATIO Glucose (74-106) mg/dL Lactic Acid (0.4-1.9) mmol/L Calcium (8.5-10.1) mg/dL Magnesium (1.6-2.6) mg/dL Total Bilirubin (0.20-1.00) mg/dL Direct Bilirubin (0.00-0.30) mg/dL GGT (15-85) U/L AST (15-37) U/L ALT (16-61) U/L Alkaline Phosphatase (45-117) U/L Troponin I 0.772 H* (<0.045) ng/mL B-Natriuretic Peptide (0-100) pg/mL Total Protein (6.4-8.2) g/dL Albumin (3.2-5.0) g/dL Globulin (2.2-4.2) g/dL Albumin/Globulin Ratio (0.9-2.4) RATIO Lipase (73-393) U/L TSH (0.358-3.74) uIU/mL Acetaminophen (10.0-30.0) ug/mL HIV 1&2 Antibody (Nonreactive) MRSA (PCR) Negative (Negative) POC Glucose 110 (70-110) mg/dL 05/30/19 05/30/19 05/30/19 Range/Units 21:20 21:20 20:10 WBC (4.4-11.0) K/mm3 RBC (4.6-6.2) M/mm3 Hgb (13.0-16.5) g/dL Hct (40-54) % MCV (80-94) fL MCH (27.0-32.0) pg MCHC (32-36) g/dL RDW Std Deviation (35.1-43.9) fl RDW Coeff of Kirsten (11.6-14.6) % Plt Count (150-450) K/mm3 MPV (6.2-12.0) fl Immature Gran % (Auto) (0.0-0.9) % Neut % (Auto) (47-70) % Lymph % (Auto) (19-41) % [place] % (Auto) (0-10) % Eos % (Auto) (0-5) % Baso % (Auto) (0-1) % Absolute Neuts (auto) (2.0-7.7) X10^3/uL Absolute Lymphs (auto) (0.83-4.51) X10^3/uL Nucleated RBC % (0-5) % Differential Comment Platelet Estimate (ADEQ) Hypochromasia Macrocytosis PT (11.7-14.9) SECONDS INR Sodium (136-145) mmol/L Potassium (3.5-5.1) mmol/L Chloride (98-107) mmol/L Carbon Dioxide (21.0-32.0) mmol/L Anion Gap (5-15) BUN (7-18) mg/dL Creatinine (0.70-1.30) mg/dL Estim Creat Clear Calc ml/min Est GFR (MDRD) Af Amer (>60) mL/min Est GFR (MDRD) Non-Af (>60) mL/min BUN/Creatinine Ratio (10-20) RATIO Glucose (74-106) mg/dL Lactic Acid 6.5 H* (0.4-1.9) mmol/L Calcium (8.5-10.1) mg/dL Magnesium 2.6 (1.6-2.6) mg/dL Total Bilirubin (0.20-1.00) mg/dL Direct Bilirubin (0.00-0.30) mg/dL GGT 21 (15-85) U/L AST (15-37) U/L ALT (16-61) U/L Alkaline Phosphatase (45-117) U/L Troponin I 0.695 H* (<0.045) ng/mL B-Natriuretic Peptide (0-100) pg/mL Total Protein (6.4-8.2) g/dL Albumin (3.2-5.0) g/dL Globulin (2.2-4.2) g/dL Albumin/Globulin Ratio (0.9-2.4) RATIO Lipase (73-393) U/L TSH (0.358-3.74) uIU/mL Acetaminophen (10.0-30.0) ug/mL HIV 1&2 Antibody Non-Reactive (Nonreactive) MRSA (PCR) (Negative) POC Glucose (70-110) mg/dL 05/30/19 05/30/19 05/30/19 Range/Units 16:05 14:42 14:42 WBC (4.4-11.0) K/mm3 RBC (4.6-6.2) M/mm3 Hgb (13.0-16.5) g/dL Hct (40-54) % MCV (80-94) fL MCH (27.0-32.0) pg MCHC (32-36) g/dL RDW Std Deviation (35.1-43.9) fl RDW Coeff of Kirsten (11.6-14.6) % Plt Count (150-450) K/mm3 MPV (6.2-12.0) fl Immature Gran % (Auto) (0.0-0.9) % Neut % (Auto) (47-70) % Lymph % (Auto) (19-41) % [place] % (Auto) (0-10) % Eos % (Auto) (0-5) % Baso % (Auto) (0-1) % Absolute Neuts (auto) (2.0-7.7) X10^3/uL Absolute Lymphs (auto) (0.83-4.51) X10^3/uL Nucleated RBC % (0-5) % Differential Comment Platelet Estimate (ADEQ) Hypochromasia Macrocytosis PT (11.7-14.9) SECONDS INR Sodium 135 L (136-145) mmol/L Potassium 5.9 H (3.5-5.1) mmol/L Chloride 95 L (98-107) mmol/L Carbon Dioxide 16.0 L (21.0-32.0) mmol/L Anion Gap 24 H (5-15) BUN 41 H (7-18) mg/dL Creatinine 9.07 H* (0.70-1.30) mg/dL Estim Creat Clear Calc 6.58 ml/min Est GFR (MDRD) Af Amer 7 L (>60) mL/min Est GFR (MDRD) Non-Af 6 L (>60) mL/min BUN/Creatinine Ratio 4.5 L (10-20) RATIO Glucose 173 H (74-106) mg/dL Lactic Acid 12.7 H* (0.4-1.9) mmol/L Calcium 9.1 (8.5-10.1) mg/dL Magnesium (1.6-2.6) mg/dL Total Bilirubin 2.80 H (0.20-1.00) mg/dL Direct Bilirubin (0.00-0.30) mg/dL GGT (15-85) U/L AST 2358 H (15-37) U/L ALT 881 H (16-61) U/L Alkaline Phosphatase 93 (45-117) U/L Troponin I 0.691 H* (<0.045) ng/mL B-Natriuretic Peptide > 5000.0 H (0-100) pg/mL Total Protein 8.0 (6.4-8.2) g/dL Albumin 3.0 L (3.2-5.0) g/dL Globulin 5.0 H (2.2-4.2) g/dL Albumin/Globulin Ratio 0.6 L (0.9-2.4) RATIO Lipase (73-393) U/L TSH (0.358-3.74) uIU/mL Acetaminophen (10.0-30.0) ug/mL HIV 1&2 Antibody (Nonreactive) MRSA (PCR) (Negative) POC Glucose (70-110) mg/dL 03/09/20 03/09/20 Range/Units 14:42 14:22 WBC 25.6 H (4.4-11.0) K/mm3 RBC 2.87 L (4.6-6.2) M/mm3 Hgb 9.7 L (13.0-16.5) g/dL Hct 29.9 L (40-54) % MCV 104.2 H (80-94) fL MCH 33.8 H (27.0-32.0) pg MCHC 32.4 (32-36) g/dL RDW Std Deviation 55.3 H (35.1-43.9) fl RDW Coeff of Kirsten 14.6 (11.6-14.6) % Plt Count 224 (150-450) K/mm3 MPV 11.8 (6.2-12.0) fl Immature Gran % (Auto) 1.000 H (0.0-0.9) % Neut % (Auto) 91.5 H (47-70) % Lymph % (Auto) 2.8 L (19-41) % [place] % (Auto) 4.3 (0-10) % Eos % (Auto) 0.2 (0-5) % Baso % (Auto) 0.2 (0-1) % Absolute Neuts (auto) 23.4 H (2.0-7.7) X10^3/uL Absolute Lymphs (auto) 0.72 L (0.83-4.51) X10^3/uL Nucleated RBC % 0 (0-5) % Differential Comment SCANNED Platelet Estimate ADEQUATE (ADEQ) Hypochromasia RARE Macrocytosis 1+ PT (11.7-14.9) SECONDS INR Sodium (136-145) mmol/L Potassium (3.5-5.1) mmol/L Chloride (98-107) mmol/L Carbon Dioxide (21.0-32.0) mmol/L Anion Gap (5-15) BUN (7-18) mg/dL Creatinine (0.70-1.30) mg/dL Estim Creat Clear Calc ml/min Est GFR (MDRD) Af Amer (>60) mL/min Est GFR (MDRD) Non-Af (>60) mL/min BUN/Creatinine Ratio (10-20) RATIO Glucose (74-106) mg/dL Lactic Acid (0.4-1.9) mmol/L Calcium (8.5-10.1) mg/dL Magnesium (1.6-2.6) mg/dL Total Bilirubin (0.20-1.00) mg/dL Direct Bilirubin (0.00-0.30) mg/dL GGT (15-85) U/L AST (15-37) U/L ALT (16-61) U/L Alkaline Phosphatase (45-117) U/L Troponin I (<0.045) ng/mL B-Natriuretic Peptide (0-100) pg/mL Total Protein (6.4-8.2) g/dL Albumin (3.2-5.0) g/dL Globulin (2.2-4.2) g/dL Albumin/Globulin Ratio (0.9-2.4) RATIO Lipase 68 L (73-393) U/L TSH (0.358-3.74) uIU/mL Acetaminophen (10.0-30.0) ug/mL HIV 1&2 Antibody (Nonreactive) MRSA (PCR) (Negative) POC Glucose (70-110) mg/dL Clinical Impression(s) from Imaging Studies Chest X-Ray 05/30/19 14:52 IMPRESSION: Stable examination with blunting of the right costophrenic angle and increased markings at the right lung base suggestive of atelectasis. Electronically Signed: Mando Zamorano, at 15:45 EDT , Service support , Liver Ultrasound 05/30/19 15:34 IMPRESSION: There is a thickened appearance of the gallbladder wall which may be partially contracted. On one image there is a suggestion that there may be pericholecystic fluid. There is no definitive evidence of gallstones. This may represent trace ascites. The sonographic Bowles''s sign is described as negative. Cannot include or exclude chronic cholecystitis. Other imaging may be warranted if pain persists. Partially visualized small right effusion. Right renal cortical thinning which may be associated with underlying medical renal disease. Electronically Signed: Mary Honeycutt MD at 16:59 EDT Tel , Service support , Abdomen/Pelvis CT 05/30/19 17:14 IMPRESSION: 1. Atherosclerotic vascular calcifications noted. No demonstrated aortic aneurysm. The heart is borderline to mildly enlarged. 2. Small to moderate right pleural effusion with minimal atelectasis in the right lung base. Infection not excluded. 3. Moderate cortical atrophy of the bilateral kidneys now present. No hydronephrosis. 4. Possible sludge in the gallbladder. No sign of acute cholecystitis. If clinically indicated, this can be further characterized with ultrasound. 5. Occasional calcified granulomata again seen in the liver and spleen. 6. Degenerative changes again seen in the spine and bilateral sacroiliac joints. There is been particular progression of degenerative disc height narrowing at L2-3 with anterior fusion of the vertebra at that level. Electronically Signed: Richard Lima MD at 17:50 EDT , Service support , Operations: None Summary of Care Provided: Patient is a 73-year-old gentleman with recent admission for acute non-STEMI for which he underwent PCI with HASMUKH who presented to the emergency department with increasing shortness of breath. Found to have markedly elevated liver enzymes. Admitted to the intensive care unit for further management 1. Acute hepatitis ?Patient liver function panel consistent with hepatocellular injury. Differential diagnoses include drug-induced hepatitis versus shock liver. Patient however did not have any evidence of hypotension on admission. 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 Decision was made to transfer patient to tertiary care center with GI availability 2. Suspected severe sepsis ?Patient did not have any evidence of infection. Do suspect lactic acidosis to be secondary to patient liver injury as well as his underlying end-stage renal disease 3. Recent non-STEMI involving the posterior lateral wall. Patient underwent left heart catheterization on 05/16/2019 with PCI/HASMUKH to left circumflex lesion as well as mid RCA and proximal RCA lesions. Currently on recommended medications 4. Bradycardia ?With patient having elevated potassium this was thought to be part of the etiology versus underlying conduction system disorder. Patient was started on the main drip with consultation placed to cardiology 5. Ischemic cardiomyopathy with ejection fraction of 25% 6. End-stage renal disease on hemodialysis Wednesdays and Fridays. Patient had apparently missed his dialysis the day prior to coming in. Consult was placed to nephrology for emergency dialysis 7. Anemia secondary to anemia of end-stage renal disease/anemia of chronic disorder monitor H&H 8. Dyslipidemia 9. Paroxysmal A. fib ?Patient was apparently discharged on amiodarone which he quit taking because he did not like the side effect. He said he felt weak while on amiodarone 10. Essential hypertension ?Patient blood pressure was on the low side Patient Problems: Active and Suspected Problems (Last Updated 05/17/19 @ 15:23 by Mirella Singletary) Elevated LFTs (Acute) Near syncope (Acute) Dysrhythmia (Acute) - Physical Exam Vitals/I&O's: Vital Signs Temp Pulse Resp BP Pulse Ox 97.3 F L 114 H 33 H 118/63 99 05/31/19 08:05 05/31/19 11:45 05/31/19 11:45 05/31/19 11:45 05/31/19 11:45 Oxygen Flow Rate (L/min) 5 Oxygen Delivery Method Nasal Cannula Weight: 81.363 kg Body Mass Index (BMI) 27.6 Finger Stick Blood Glucose 123 Intake and Output for Last 24 Hours 05/29/19 05/30/19 05/31/19 23:59 23:59 23:59 Intake Total 53.33 / 153.33 573.92 / 573.92 Output Total 0 / 0 Balance 53.33 / 153.33 573.92 / 573.92 General: Oriented x3 Lungs: Diminished Cardiovascular: Bradycardic Abdomen: Bowel Sounds Present, Non-Distended Neurological: Neuro grossly intact Psych/Mental Status: Flat Affect Microbiology Past 72 Hours 05/30/19 15:41 Mucosa - Nasopharyngeal Influenza Types A,B Direct FA (ROSALEE) - Final Laboratory Results 05/30/19 14:22: Lipase 68 L 05/30/19 14:42: WBC 25.6 H, RBC 2.87 L, Hgb 9.7 L, Hct 29.9 L, MCV 104.2 H, MCH 33.8 H, MCHC 32.4, RDW Std Deviation 55.3 H, RDW Coeff of Kirsten 14.6, Plt Count 224, MPV 11.8, Immature Gran % (Auto) 1.000 H, Neut % (Auto) 91.5 H, Lymph % (Auto) 2.8 L, [place] % (Auto) 4.3, Eos % (Auto) 0.2, Baso % (Auto) 0.2, Absolute Neuts (auto) 23.4 H, Absolute Lymphs (auto) 0.72 L, Nucleated RBC % 0, Differential Comment SCANNED, Platelet Estimate ADEQUATE, Hypochromasia RARE, Macrocytosis 1+ 05/30/19 14:42: Sodium 135 L, Potassium 5.9 H, Chloride 95 L, Carbon Dioxide 16.0 L, Anion Gap 24 H, BUN 41 H, Creatinine 9.07 H*, Estim Creat Clear Calc 6.58, Est GFR (MDRD) Af Amer 7 L, Est GFR (MDRD) Non-Af 6 L, BUN/Creatinine Ratio 4.5 L, Glucose 173 H, Calcium 9.1, Total Bilirubin 2.80 H, AST 2358 H, ALT 881 H, Alkaline Phosphatase 93, Troponin I 0.691 H*, Total Protein 8.0, Albumin 3.0 L, Globulin 5.0 H, Albumin/Globulin Ratio 0.6 L 05/30/19 14:42: B-Natriuretic Peptide > 5000.0 H 05/30/19 16:05: Lactic Acid 12.7 H* 05/30/19 20:10: Magnesium 2.6, GGT 21, Troponin I 0.695 H* 05/30/19 21:20: Hepatitis A IgM Ab Pending, Hep Bs Antigen Pending, Hep B Core IgM Ab Pending, Hepatitis C Ab (EIA) Pending 05/30/19 21:20: HIV 1&2 Antibody Non-Reactive 05/30/19 21:20: Lactic Acid 6.5 H* 05/30/19 21:53: POC Glucose 110 05/30/19 23:00: Troponin I 0.772 H* 05/30/19 23:00: MRSA (PCR) Negative 05/31/19 02:00: Sodium 137, Potassium 5.5 H, Chloride 97 L, Carbon Dioxide 25.0, Anion Gap 15, BUN 54 H, Creatinine 9.33 H*, Estim Creat Clear Calc 6.40, Est GFR (MDRD) Af Amer 7 L, Est GFR (MDRD) Non-Af 6 L, BUN/Creatinine Ratio 5.8 L, Glucose 90, Calcium 8.8, Total Bilirubin 3.00 H, Direct Bilirubin 1.61 H, AST 5050 H, ALT 2713 H, Alkaline Phosphatase 93, Total Protein 7.4, Albumin 2.9 L, Globulin 4.5 H, TSH 2.24 05/31/19 02:00: WBC 19.3 H, RBC 2.85 L, Hgb 9.5 L, Hct 29.1 L, MCV 102.1 H, MCH 33.3 H, MCHC 32.6, RDW Std Deviation 54.1 H, RDW Coeff of Kirsten 14.6, Plt Count 201, MPV 12.0, Immature Gran % (Auto) 0.600, Neut % (Auto) 91.8 H, Lymph % (Auto) 4.2 L, [place] % (Auto) 3.1, Eos % (Auto) 0.1, Baso % (Auto) 0.2, Absolute Neuts (auto) 17.7 H, Absolute Lymphs (auto) 0.81 L, Nucleated RBC % 0.2 05/31/19 02:00: Troponin I 0.863 H* 05/31/19 02:00: PT 23.0 H, INR 2.1 05/31/19 06:44: POC Glucose 97 05/31/19 08:40: Acetaminophen < 2.0 L Current Medications Albuterol Sulfate (Ventolin Aerosols) 2.5 mg INHALATION Q2H PRN PRN PRN Reason: SOB/Wheezing Last Admin: 05/30/19 22:27 Dose: 2.5 mg Documented by: Aspirin (Ecotrin) 81 mg PO DAILYCM [facility] Glucagon () 1 mg IM .X1 PRN PRN Reason: Hypoglycemia Guaifenesin (Robitussin) 10 ml PO Q4H PRN PRN PRN Reason: COUGH Heparin Sodium (Porcine) (Heparin Na) 5,000 unit SC Q12 [facility] Last Admin: 05/30/19 21:57 Dose: 5,000 unit Documented by: Piperacillin Sod/Tazobactam (Sod 3.375 gm/ Sodium Chloride) 50 mls @ 12.5 mls/hr IV Q12 [facility] Dextrose (Dextrose 10%-Water) 250 mls @ 999 mls/hr IV .Q16M PRN; Protocol PRN Reason: HYPOGLYCEMIA Dopamine HCl/Dextrose () 800 mg in 250 mls @ 15.256 mls/hr CONT INF .[id number] [facility]; Protocol Last Titration: 05/31/19 11:45 Dose: 5 mcg/kg/min, 7.6 mls/hr Documented by: Insulin Human Lispro (Humalog Kwikpen (Bkc)) 0 unit SC ACHS [facility]; Protocol Last Admin: 05/31/19 08:09 Dose: Not Given Documented by: Nitroglycerin (Nitrostat) 0.4 mg SUBLINGUAL Q5M PRN PRN Reason: CARDIAC/CHEST PAIN Prochlorperazine Edisylate (Compazine Iv) 5 mg IV Q4H PRN PRN PRN Reason: Breakthrough Nausea/Vomiting Promethazine HCl (Phenergan) 12.5 mg IV Q6H PRN PRN PRN Reason: Breakthrough Nausea/Vomiting Senna/Docusate Sodium (Senokot-S, Nita-Colace) 2 tablet PO BID PRN PRN Reason: Constipation Sodium Chloride () 10 - 40 ml IV UD PRN PRN Reason: SALINE FLUSH Ticagrelor (Brilinta) 90 mg PO BID [facility] Last Admin: 05/30/19 21:56 Dose: 90 mg Documented by: Discharge Diet: 1800 Calorie Control Diet, Renal Diet Home Medications: Medications to take at Discharge Aspirin [Low Dose Aspirin EC] 81 mg PO DAILY #30 05/19/19 Nitroglycerin (INPATIENT USE) [Nitrostat] 0.4 mg SUBLINGUAL Q5M PRN #30 tab.subl 05/19/19 Ticagrelor [Brilinta] 90 mg PO BID #60 tab 05/19/19 Albuterol Sulfate [Proair Hfa] 1 - 2 inh IH Q4H PRN PRN 05/30/19 Pravastatin Sodium 80 mg PO QHS 05/30/19 Sacubitril/Valsartan 24/26 mg [Entresto 24 mg-26 mg Tablet] 1 tab PO BID 05/30/19 DOPamine IV 800 mg CONT INF .[id number] iv.soln. 05/31/19 Piperacil/Tazobactam [Zosyn] 3.375 gm IV Q12 vial 05/31/19 Primary Care Physician: Sean Medina MD [Primary Care Provider] - Please follow up with your Primary Care Physician in: after Discharge from the [facility] Disposition: Acute care Hospital Minutes spent on discharge:: 45 Patient Condition:: Stable Medical Necessity - Tobacco Use Smoking Status: Never smoker Tobacco Use: Non-smoker Meaningful Use Info Meaningful Use Diagnoses (Choose all that apply): None applicable Inpatient E&M: 88996 Disch Hosp
[2019-05-31 12:26] LABS: Bedside Glucose 101 mg/dL (70-110)
--- NOTE | 2019-05-31 12:48 | CON.PCM_ITS ---
Consultation - Renal PCP/ Referring MD: Requesting physician: [] Primary care physician: Sean Medina MD - History of Present Illness History of Present Illness: The patient is a 73 year old M PMH of ESRD on MWF HD schedule, CAD , NSTEMI,SVT, and HFrEF Pt presented with SOB and dyspnea and fall due to legs weakness. No head trauma. Pt was found to have elevaed LFT, elevated WBC along with wide complex tachycardia Pt is admitted to ICU. Pt missed HD session today. K is 5.5 . HD session was arranged urgently due to Wide Complex tachycardia Pt is currently on dopamine drip Pt was seen during HD session today. Pt is little drowsy . Pt did not wake up when I call him ROS: Unobtainable ] - Allergies Allergies: Allergies codeine Allergy (Verified 05/30/19 14:22) Itching - Current Medications Current Medications: Current Medications Albuterol Sulfate (Ventolin Aerosols) 2.5 mg INHALATION Q2H PRN PRN PRN Reason: SOB/Wheezing Last Admin: 05/30/19 22:27 Dose: 2.5 mg Documented by: Aspirin (Ecotrin) 81 mg PO DAILYCM DAVID Glucagon () 1 mg IM .X1 PRN PRN Reason: Hypoglycemia Guaifenesin (Robitussin) 10 ml PO Q4H PRN PRN PRN Reason: COUGH Heparin Sodium (Porcine) (Heparin Na) 5,000 unit SC Q12 DAVID Last Admin: 05/30/19 21:57 Dose: 5,000 unit Documented by: Piperacillin Sod/Tazobactam (Sod 3.375 gm/ Sodium Chloride) 50 mls @ 12.5 mls/hr IV Q12 [facility] Dextrose (Dextrose 10%-Water) 250 mls @ 999 mls/hr IV .Q16M PRN; Protocol PRN Reason: HYPOGLYCEMIA Dopamine HCl/Dextrose () 800 mg in 250 mls @ 15.256 mls/hr CONT INF .[id number] [facility]; Protocol Last Titration: 05/31/19 11:45 Dose: 5 mcg/kg/min, 7.6 mls/hr Documented by: Insulin Human Lispro (Humalog Kwikpen (Bkc)) 0 unit SC ACHS [facility]; Protocol Last Admin: 05/31/19 12:24 Dose: Not Given Documented by: Nitroglycerin (Nitrostat) 0.4 mg SUBLINGUAL Q5M PRN PRN Reason: CARDIAC/CHEST PAIN Prochlorperazine Edisylate (Compazine Iv) 5 mg IV Q4H PRN PRN PRN Reason: Breakthrough Nausea/Vomiting Promethazine HCl (Phenergan) 12.5 mg IV Q6H PRN PRN PRN Reason: Breakthrough Nausea/Vomiting Senna/Docusate Sodium (Senokot-S, Nita-Colace) 2 tablet PO BID PRN PRN Reason: Constipation Sodium Chloride () 10 - 40 ml IV UD PRN PRN Reason: SALINE FLUSH Ticagrelor (Brilinta) 90 mg PO BID [facility] Last Admin: 05/30/19 21:56 Dose: 90 mg Documented by: - Past Medical History Past Medical History (Chronic Problems): Chronic Problems (Last Updated 05/17/19 @ 15:23 by Mirella Singletary) CAD (coronary artery disease) (Chronic) Non compliance w medication regimen (Chronic) Depression (Chronic) Presence of stent in coronary artery (Chronic ~05/16/19) thrombectomy with PTCA with HASMUKH to proximal, mid and distal RCA 03/03; PTCA with stenting to mid & distal RCA 07/05, PTCA of proximal LAD 07/05; Successful PTCA/HASMUKH of the of proxima RCA in stent restenosis, utilizing a 2.0 x 12 Angiosculpt, followed by a 3.0 x 33 Elunira HASMUKH; 85%-->0%, no dissection.Successful PTCA/HASMUKH of the mid LPL branch of the LCX with a 3.0 x 16 Promus Synergy; 75%-->0%, no dissection; Successful PTCA/HASMUKH of the mid LCX with a 2.75 x 16 Promus Synergy; 75%-->0%, no dissection. No PCI of smal OM branch perfomed due to small vessel disease. 05/20/18; Successful PTCA/HASMUKH proximal LCX with a 3.0 x 16 Promus Synergy, 85%-->0%, no dissection. Successful PTCA/HASMUKH mid RCA ISR with a 2.5 x 10 Angiosculpt, followed with a 3.0 x 38 Promus Synergy, post dilated with a 3.0 and 3.5 x 12 NC balloon; 85%-->0%, no dissection. 10/28/18; Successful PTCA of stent thrombosis/restenosis in mid RCA. per cath 12/01/18 Successful PTCA/HASMUKH emergent heparin/Integrilin bolus assisted PCI to mid LCX with a 2.5 x 16 Promus Synergy, post dilated with a 3.0 x 8 NC balloon using double wire technique; 100%-->0%, no dissection. Successful PTCA/HASMUKH to mid RCA with a 2.5 x 10 Angiosculpt, followed by a 2.5 x 14 Resolute, post dilated with a 3.0 x 8 NC baloon; 90%-->0%, no dissection. Successful PTCA/HASMUKH PCI with 2.5 x 10 Angiosculpt to proximal RCA, followed with a 3.0 x 15 Resolute HASMUKH, post dilated throughout with a 3.0 x 8 NC Balloon; 75%-->0%, no dissection. per cath 05/16/19 Essential hypertension (Chronic) ESRD (end stage renal disease) on dialysis (Chronic) Old myocardial infarction (Chronic) Inferior [place], anterior [place] 07/05 snf use of drug (Chronic) Antihyperlipidemic Family history of hypertension (Chronic) Other secondary pulmonary hypertension (Chronic) Subendocardial ischemia (Chronic) Ischemic cardiomyopathy (Chronic) Nonrheumatic mitral valve regurgitation (Chronic) Rheumatic tricuspid insufficiency (Chronic) Paroxysmal atrial fibrillation (Chronic) Atherosclerotic heart disease of [place] coronary artery without angina pectoris (Chronic) PTCA/HASMUKH to proximal RCA, mid LPL branch of the LCx, in mid LCx in April 2017; angioplasty and PCI to mid and distal RCA in 2014; thrombectomy and PCI to proximal, mid, and distal RCA in 2011; Type II diabetes mellitus (Chronic) Hyperlipidemia associated with type 2 diabetes mellitus (Chronic) HLD (hyperlipidemia) (Chronic) - Past Surgical History Surgical History: angioplasty - PCI x 11, most recently 11/2018., - - Significant PCI history, most recently 11/2018 with total PCI x 11 per patient report, 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 - Social History Smoking Status: Never smoker - Family History Maternal Family History: Family History (Last Reviewed 09/30/18 @ 13:10 by Mirella Singletary) Mother Breast cancer Myocardial infarction CAD (coronary artery disease) Father Colon cancer Hypertension Myocardial infarction Other Family history of hypertension History Items: Cancer, Heart Disease, Hypertension Paternal Family History: Family History (Last Reviewed 09/30/18 @ 13:10 by Mirella Singletary) Mother Breast cancer Myocardial infarction CAD (coronary artery disease) Father Colon cancer Hypertension Myocardial infarction Other Family history of hypertension History Items: Cancer, Heart Disease, Hypertension Patient Problems: Active and Suspected Problems (Last Updated 05/17/19 @ 15:23 by Mirella Singletary) Elevated LFTs (Acute) Near syncope (Acute) Dysrhythmia (Acute) - Physical Exam Vitals/I&O's: Vital Signs Temp Pulse Resp BP Pulse Ox 97.3 F L 114 H 33 H 118/63 99 05/31/19 08:05 05/31/19 12:00 05/31/19 11:45 05/31/19 11:45 05/31/19 11:45 Oxygen Flow Rate (L/min) 5 Oxygen Delivery Method Nasal Cannula Weight: 81.363 kg Body Mass Index (BMI) 27.6 Finger Stick Blood Glucose 123 Intake and Output for Last 24 Hours 05/29/19 05/30/19 05/31/19 23:59 23:59 23:59 Intake Total 53.33 / 153.33 573.92 / 573.92 Output Total 0 / 0 Balance 53.33 / 153.33 573.92 / 573.92 General: Lethargic HEENT: Atraumatic Oral: Moist Mucosa Neck: Supple, No JVD Lungs: Clear to auscultation, Normal air movement, No rhonchi Cardiovascular: Tachycardic Abdomen: Bowel Sounds Present, Soft, Non Tender, Non-Distended Extremities: No clubbing, No cyanosis, No edema Skin: No rashes Musculoskeletal: No Muscle Wasting Lymphatic: No Cervical, Supraclavicular, or Inguinal Adenopathy Microbiology Past 72 Hours 05/30/19 15:41 Mucosa - Nasopharyngeal Respiratory Panel (PCR) - Final 05/30/19 15:41 Mucosa - Nasopharyngeal Influenza Types A,B Direct FA (ROSALEE) - Final Laboratory Results 05/30/19 14:22: Lipase 68 L 05/30/19 14:42: WBC 25.6 H, RBC 2.87 L, Hgb 9.7 L, Hct 29.9 L, MCV 104.2 H, MCH 33.8 H, MCHC 32.4, RDW Std Deviation 55.3 H, RDW Coeff of Kirsten 14.6, Plt Count 224, MPV 11.8, Immature Gran % (Auto) 1.000 H, Neut % (Auto) 91.5 H, Lymph % (Auto) 2.8 L, Cataño % (Auto) 4.3, Eos % (Auto) 0.2, Baso % (Auto) 0.2, Absolute Neuts (auto) 23.4 H, Absolute Lymphs (auto) 0.72 L, Nucleated RBC % 0, Differential Comment SCANNED, Platelet Estimate ADEQUATE, Hypochromasia RARE, Macrocytosis 1+ 05/30/19 14:42: Sodium 135 L, Potassium 5.9 H, Chloride 95 L, Carbon Dioxide 16.0 L, Anion Gap 24 H, BUN 41 H, Creatinine 9.07 H*, Estim Creat Clear Calc 6.58, Est GFR (MDRD) Af Amer 7 L, Est GFR (MDRD) Non-Af 6 L, BUN/Creatinine Ratio 4.5 L, Glucose 173 H, Calcium 9.1, Total Bilirubin 2.80 H, AST 2358 H, ALT 881 H, Alkaline Phosphatase 93, Troponin I 0.691 H*, Total Protein 8.0, Albumin 3.0 L, Globulin 5.0 H, Albumin/Globulin Ratio 0.6 L 05/30/19 14:42: B-Natriuretic Peptide > 5000.0 H 05/30/19 16:05: Lactic Acid 12.7 H* 05/30/19 20:10: Magnesium 2.6, GGT 21, Troponin I 0.695 H* 05/30/19 21:20: Hepatitis A IgM Ab Pending, Hep Bs Antigen Pending, Hep B Core IgM Ab Pending, Hepatitis C Ab (EIA) Pending 05/30/19 21:20: HIV 1&2 Antibody Non-Reactive 05/30/19 21:20: Lactic Acid 6.5 H* 05/30/19 21:53: POC Glucose 110 05/30/19 23:00: Troponin I 0.772 H* 05/30/19 23:00: MRSA (PCR) Negative 05/31/19 02:00: Sodium 137, Potassium 5.5 H, Chloride 97 L, Carbon Dioxide 25.0, Anion Gap 15, BUN 54 H, Creatinine 9.33 H*, Estim Creat Clear Calc 6.40, Est GFR (MDRD) Af Amer 7 L, Est GFR (MDRD) Non-Af 6 L, BUN/Creatinine Ratio 5.8 L, Glucose 90, Calcium 8.8, Total Bilirubin 3.00 H, Direct Bilirubin 1.61 H, AST 5050 H, ALT 2713 H, Alkaline Phosphatase 93, Total Protein 7.4, Albumin 2.9 L, Globulin 4.5 H, TSH 2.24 05/31/19 02:00: WBC 19.3 H, RBC 2.85 L, Hgb 9.5 L, Hct 29.1 L, MCV 102.1 H, MCH 33.3 H, MCHC 32.6, RDW Std Deviation 54.1 H, RDW Coeff of Kirsten 14.6, Plt Count 201, MPV 12.0, Immature Gran % (Auto) 0.600, Neut % (Auto) 91.8 H, Lymph % (Auto) 4.2 L, Cataño % (Auto) 3.1, Eos % (Auto) 0.1, Baso % (Auto) 0.2, Absolute Neuts (auto) 17.7 H, Absolute Lymphs (auto) 0.81 L, Nucleated RBC % 0.2 05/31/19 02:00: Troponin I 0.863 H* 05/31/19 02:00: PT 23.0 H, INR 2.1 05/31/19 06:44: POC Glucose 97 05/31/19 08:40: Acetaminophen < 2.0 L 05/31/19 12:22: POC Glucose 101 Current Medications Albuterol Sulfate (Ventolin Aerosols) 2.5 mg INHALATION Q2H PRN PRN PRN Reason: SOB/Wheezing Last Admin: 05/30/19 22:27 Dose: 2.5 mg Documented by: Aspirin (Ecotrin) 81 mg PO DAILYCM [facility] Glucagon () 1 mg IM .X1 PRN PRN Reason: Hypoglycemia Guaifenesin (Robitussin) 10 ml PO Q4H PRN PRN PRN Reason: COUGH Heparin Sodium (Porcine) (Heparin Na) 5,000 unit SC Q12 DAVID Last Admin: 05/30/19 21:57 Dose: 5,000 unit Documented by: Piperacillin Sod/Tazobactam (Sod 3.375 gm/ Sodium Chloride) 50 mls @ 12.5 mls/hr IV Q12 [facility] Dextrose (Dextrose 10%-Water) 250 mls @ 999 mls/hr IV .Q16M PRN; Protocol PRN Reason: HYPOGLYCEMIA Dopamine HCl/Dextrose () 800 mg in 250 mls @ 15.256 mls/hr CONT INF .[id number] [facility]; Protocol Last Titration: 05/31/19 11:45 Dose: 5 mcg/kg/min, 7.6 mls/hr Documented by: Insulin Human Lispro (Humalog Kwikpen (Bkc)) 0 unit SC ACHS [facility]; Protocol Last Admin: 05/31/19 12:24 Dose: Not Given Documented by: Nitroglycerin (Nitrostat) 0.4 mg SUBLINGUAL Q5M PRN PRN Reason: CARDIAC/CHEST PAIN Prochlorperazine Edisylate (Compazine Iv) 5 mg IV Q4H PRN PRN PRN Reason: Breakthrough Nausea/Vomiting Promethazine HCl (Phenergan) 12.5 mg IV Q6H PRN PRN PRN Reason: Breakthrough Nausea/Vomiting Senna/Docusate Sodium (Senokot-S, Nita-Colace) 2 tablet PO BID PRN PRN Reason: Constipation Sodium Chloride () 10 - 40 ml IV UD PRN PRN Reason: SALINE FLUSH Ticagrelor (Brilinta) 90 mg PO BID [facility] Last Admin: 05/30/19 21:56 Dose: 90 mg Documented by: Assessment/Plan All Active Problems (Last Updated 05/17/19 @ 15:23 by Mirella Singletary) Elevated LFTs (Acute) Near syncope (Acute) Dysrhythmia (Acute) Non-STEMI (non-ST elevated myocardial infarction) (Acute) Acute on chronic renal insufficiency (Resolved) Hyperkalemia (Resolved) Left flank pain (Resolved) Problem with dialysis access (Resolved) Uncontrollable nausea and vomiting (Resolved) 1- ESRD on MWF HD schedule HD access is LUE AVF HD session today : BQ 400 DQ 600. UF 1.5 L Next HD session tomorrow 2- Hyperkalemia: likely from missing HD session yesterday HD session today with 2 K dialysate 3-Anemia: Hgb is 9.5 which is acceptable Monitor H and H daily 4- Dyspnea : from pneumonia/CHF HD today with 1.5 L On Zosyn 5- wide complex tachycardia . doubt related to hyperkalemia. Will lower K to normal limit with HD Rest of management as per ICU/Cardiology team Thank you for the consult Renal team will continue to follow Please call if any question Paolo Hughes MD
--- NOTE | 2019-05-31 13:33 | DIALYSIS ---
Hemodialysis completed 4 hours, First hour on a 1 K bath and 3 hours on a 2 K bath. Fluid removed was 2 liters. Patient tolerated well. Left arm fistula with good bruit and thrill post dialysis. See dialysis flow sheet for all details of treatment. No medications given during dialysis. Next treatment will be due June 01 or per nephrology.
[2019-05-31 15:43] LABS: AST(SGOT) 4734 U/L (15-37); Alanine Aminotransfer ALT/SGPT 3239 U/L (16-61); Alkaline Phosphatase 119 U/L (45-117); Bilirubin, Direct 1.54 mg/dL (0.00-0.30); Globulin 4.5 g/dL (2.2-4.2); Protein, Total 7.5 g/dL (6.4-8.2)
[2019-05-31 17:30] LABS: Bedside Glucose 107 mg/dL (70-110)
[2019-05-31] MEDS: Heparin Injection (Vial) 5,000 UNIT/ML VIAL 5000 UNIT SC (22:21)
[2019-05-31] MEDS: TICAGRELOR 90 MG TABLET PO (22:25)
[2019-05-31 22:40] LABS: Bedside Glucose 126 mg/dL (70-110)
--- NOTE | 2019-05-31 23:04 | NURSING ---
squad here to take pt to ccm.
[2019-06-01 05:06] LABS: HEPATITIS B SURFACE AG Negative (Negative); Hepatitis A IgM Antibody Negative (Negative); Hepatitis B Core AB IgM Negative (Negative)
[2019-06-01 13:13] LABS: Hep C Antibodies <0.1 s/co ratio (0.0-0.9)
== END 2019-05-31 23:15 | disposition short-term general hospital (02) | DRG 871 ==
LOC: ED 15:18 → ICU 17:46
PROVIDERS: Internal Medicine Critical Care Medicine; Admitting Provider Internal Medicine; Emergency Provider Emergency Medicine; PCP Family Medicine; Visit Provider Internal Medicine
DX: A41.9 Sepsis, unspecified organism (principal); N18.6 End stage renal disease; K72.00 Acute and subacute hepatic failure without coma; B17.9 Acute viral hepatitis, unspecified; I24.8 Other forms of acute ischemic heart disease; I13.2 Hypertensive heart and chronic kidney disease with heart failure and with stage 5 chronic kidney disease, or end stage renal disease; I50.22 Chronic systolic (congestive) heart failure; E87.2 Acidosis; K76.89 Other specified diseases of liver; E11.22 Type 2 diabetes mellitus with diabetic chronic kidney disease; D63.1 Anemia in chronic kidney disease; R65.20 Severe sepsis without septic shock; R94.5 Abnormal results of liver function studies; R55 Syncope and collapse; I25.10 Atherosclerotic heart disease of native coronary artery without angina pectoris; I25.2 Old myocardial infarction; F32.9 Major depressive disorder, single episode, unspecified; I27.29 Other secondary pulmonary hypertension; I25.5 Ischemic cardiomyopathy; I07.1 Rheumatic tricuspid insufficiency; I34.0 Nonrheumatic mitral (valve) insufficiency; I48.0 Paroxysmal atrial fibrillation; E78.5 Hyperlipidemia, unspecified; E11.51 Type 2 diabetes mellitus with diabetic peripheral angiopathy without gangrene; I45.10 Unspecified right bundle-branch block; R00.1 Bradycardia, unspecified; Z66 Do not resuscitate; Z95.5 Presence of coronary angioplasty implant and graft; Z91.14 Patient's other noncompliance with medication regimen; Z91.15 Patient's noncompliance with renal dialysis; Z99.2 Dependence on renal dialysis; Z79.82 Long term (current) use of aspirin; Z79.02 Long term (current) use of antithrombotics/antiplatelets; Z79.899 Other long term (current) drug therapy
CPT/HCPCS: 36415; 71045; 71046; 74176; 76705; 80048; 80053; 80074; 80076; 80329; 82962; 82977; 83605; 83690; 83735; 83880; 84443; 84484; 85025; 85610; 86703; 87040; 87633; 87641; 87804; 90937; 93005; 93306; 94640; 99285; J7030; J7050; Q9957; A4216; G0257; G0480

== ENCOUNTER → 2019-07-14 11:45 | Outpatient (CLI) | payer MEDICARE, SELFPAY ==
[2019-05-18 11:05] VITALS: BMI 28.3
[2019-07-14 11:45] VITALS: BMI 26.9
[2019-07-14 15:59] LABS: ALB/GLOB Ratio 0.7 RATIO (0.9-2.4); AST(SGOT) 16 U/L (15-37); Alanine Aminotransfer ALT/SGPT 13 U/L (16-61); Albumin, Serum 3.2 g/dL (3.2-5.0); Alkaline Phosphatase 110 U/L (45-117); Anion Gap 9 (5-15); BUN 25 mg/dL (7-18); BUN/Creat Ratio 3.5 RATIO (10-20); Calcium,Total 8.7 mg/dL (8.5-10.1); Chloride 99 mmol/L (98-107); Creatinine, Serum 7.24 mg/dL (0.70-1.30); EST Glomerular Filtration Rate 8 mL/min (>60); Est Glom Filt Rate - Afr Amer 10 mL/min (>60); Globulin 4.7 g/dL (2.2-4.2); Glucose 174 mg/dL (74-106); Protein, Total 7.9 g/dL (6.4-8.2); Sodium Level 136 mmol/L (136-145)
== END ==
PROVIDERS: PCP Family Medicine; Referring Provider Family Medicine; Visit Provider Family Medicine
DX: I50.22 Chronic systolic (congestive) heart failure (principal)
CPT/HCPCS: 36415; 80053

== ENCOUNTER → 2019-08-17 10:08 | Outpatient (CLI) | payer MEDICARE, MEDICAID, SELFPAY ==
[2019-05-18 11:05] VITALS: BMI 28.3
[2019-07-14 11:45] VITALS: BMI 26.9
--- NOTE | 2019-08-17 10:13 | ECHOD_ITS ---
Reason For Study: CHF Procedure This was a 2D Doppler, Color Flow transthoracic echocardiogram. Exam performed in department. Left Ventricle Moderately dilated left ventricle. The estimated ejection fraction is 20-25 %. Stage 1 diastolic dysfunction. Infero-Basal: Severely Hypokinetic. Mid-Lateral : Severely Hypokinetic. Mid-Posterior: Severely Hypokinetic. There are regional wall motion abnormalities as specified. Right Ventricle Normal size and thickness. Normal systolic function. Atria Normal left atrium. Normal right atrium. Normal atrial septum. Mitral Valve The mitral valve is structurally normal. No prolapse or stenosis seen. Trivial mitral valve insufficiency. Tricuspid Valve Normal tricuspid valve. Trivial tricuspid valve insufficiency. Right ventricular systolic pressure estimated to be 30 mmHg. Aortic Valve Normal aortic valve. Trisinus/trileaflet aortic valve. Pulmonic Valve Normal pulmonic valve. Great Vessels Normal aortic root. Normal arch. Normal inferior vena cava. Inferior vena cava collapse with sniff. Pericardium/Pleural No pericardial effusion. MMode/2D Measurements & Calculations LVIDd: 5.5 cm IVSd: 0.94 cm Ao root diam: 3.4 cm LVIDs: 4.9 cm LVPWd: 0.91 cm RVDd: 3.4 cm FS: 10.2 % LAV(MOD-bp): 53.6 ml LVAd ap4: 37.6 cm2 SV(MOD-sp4): 18.5 ml LAV(MOD-bp) Indexed: 28.8 ml/m2 EDV(MOD-sp4): 127.4 ml LAV(MOD-sp2): 50.8 ml EDV(sp4-el): 131.9 ml LAV(MOD-sp4): 48.4 ml LVAs ap4: 32.8 cm2 ESV(MOD-sp4): 108.9 ml ESV(sp4-el): 108.8 ml EF(MOD-sp4): 14.5 % EF(sp4-el): 17.5 % SV(sp4-el): 23.1 ml LA A4 area: 19.4 cm2 LA dimension(2D): 2.9 cm RA A4 area: 14.5 cm2 Doppler Measurements & Calculations MV E max thomas: 63.5 cm/sec Lat Peak E' Thomas: 5.6 cm/sec Med Peak E' Thomas: 3.2 cm/sec MV A max thomas: 84.6 cm/sec E/E' lat: 11.3 E/E' med: 20.0 MV E/A: 0.75 Ao V2 max: 132.0 cm/sec AI max thomas: 366.5 cm/sec LV V1 max: 85.8 cm/sec Ao max P.0 mmHg AI max P.7 mmHg LV V1 max P.9 mmHg AI dec slope: 99.9 cm/sec2 AI P1/2t: 1074 msec PA V2 max: 77.5 cm/sec TR max thomas: 229.7 cm/sec TR max P.3 mmHg Interpretation Summary Moderately dilated left ventricle. The estimated ejection fraction is 20-25 %. Stage 1 diastolic dysfunction. There are regional wall motion abnormalities as specified. Trivial mitral valve insufficiency. Trivial tricuspid valve insufficiency. Right ventricular systolic pressure estimated to be 30 mmHg. In comparison to echo report dated 05/31/2019, LV function has remained about the same, and RVSP has improved from 38 to 30 mmHg. Ordering Physician: Sean Medina Referring Physician: Sean Medina Performed By: Alyssia Saeed RDCS
== END ==
PROVIDERS: PCP Family Medicine; Referring Provider Family Medicine; Visit Provider Family Medicine
DX: I50.22 Chronic systolic (congestive) heart failure (principal)
CPT/HCPCS: 93306

== ENCOUNTER 2019-10-14 05:05 | Emergency (ER) | payer MEDICARE, MEDICAID, SELFPAY ==
[2019-05-18 11:05] VITALS: BMI 28.3
[2019-08-23 13:34] VITALS: BMI 22.8
[2019-10-14] VITALS (12 sets, daily range): BP systolic 75–166; BP diastolic 30–137; PULSE 30–70; RESP 13–15; TEMP 35.7–36.6; O2SAT 44–100; BMI 26.9
[2019-10-14] MEDS: Etomidate 20 MG/10 ML Vial IV (05:13)
[2019-10-14] MEDS: Sodium Bicarbonate 8.4% 50 ML Syringe 50 MEQ IV ×2 (05:14→06:50)
[2019-10-14] MEDS: Calcium Chloride 1 GM/10 ML Syringe IV ×2 (05:15→07:26)
--- NOTE | 2019-10-14 05:21 | RAD_ITS ---
STUDY: X-RAY CHEST REASON FOR EXAM: Male, 74 years old. ETT PLACEMENT. E.R. DOCTOR NOT CONCERNED ABOUT DISTAL OG TUBE PLACEMENT. PT FOUND UNRESPONSIVE. TECHNIQUE: Single AP portable view of the chest. COMPARISON: 05/30/2019 FINDINGS: Tip of the ET tube is at the lenora and should be pulled back 2 to 3 cm. NG tube tip not seen but is below the diaphragm. EKG leads overlie the chest. Left lung is clear and expanded. Right lung shows opacification in the right lung base likely combination of effusion, atelectasis and perhaps infiltrate. Follow-up recommended to assure resolution. Normal size heart. Normal mediastinum and evelio. Normal visualized pulmonary arteries. Normal visualized aortic arch and descending thoracic aorta. There are diffuse degenerative changes of the visualized thoracic spine. Normal visualized ribs, clavicles, and shoulders. There is no demonstrated abnormality of the visualized soft tissue structures of the upper abdomen. RAD/Chest 1 View (Portable) IMPRESSION: Opacification in the inferior right lung base likely combination of effusion, atelectasis and perhaps infiltrate. Follow-up recommended to assure resolution Left lung is clear ET tube tip likely at the lenora and should be pulled back 2 to 3 cm Electronically Signed: Richard Tian MD at 8:01 EDT , Service support ,
--- NOTE | 2019-10-14 05:22 | EKG12_ITS ---
Test Reason : UNRESPONSIVE Blood Pressure : / mmHG Vent. Rate : 032 BPM Atrial Rate : 032 BPM P-R Int : 576 ms QRS Dur : 174 ms QT Int : 714 ms P-R-T Axes : 070 106 225 degrees QTc Int : 521 ms Marked sinus bradycardia with 1st degree A-V block Right bundle branch block Septal infarct , age undetermined Abnormal ECG Confirmed by ERIN EDEN, MARIO ([id number]), news editor LAITH OSULLIVAN ([id number]) on 10/19/2019 1:06:19 PM Referred By: LAURYN Confirmed By:MARIO KHAN MD
[2019-10-14] MEDS: DOPamine IV 800 MG/250 ML IV.SOLN. 7.5 MG CONT INF (05:23)
--- NOTE | 2019-10-14 05:30 | ED.VIS.GEN ---
History of Present Illness Chief Complaint: Unresponsive Narrative: Patient presents unresponsive. Apparently he lives alone he called the paramedics but by the time the paramedics got there he was unresponsive, they found him to be bradycardic into the 20s and hypotensive. They externally paced him. He is being bagged upon arrival to the emergency department. Initial primary survey showed that he had a GCS of 5 he was not breathing on his own and the decision was to endotracheally intubate while at the same time starting an IV while he is being externally paced. 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 Lives: - - Patient has multiple medical problems reviewed in the computer system including dialysis. - Family History Maternal Family History: Family History (Last Reviewed 08/23/19 @ 14:09 by MARIAN Granados) Mother Breast cancer Myocardial infarction CAD (coronary artery disease) Father Colon cancer Hypertension Myocardial infarction Other Family history of hypertension Family History: Reports: Cancer, Heart Disease, Hypertension Paternal Family History: Family History (Last Reviewed 08/23/19 @ 14:09 by MARIAN Granados) Mother Breast cancer Myocardial infarction CAD (coronary artery disease) Father Colon cancer Hypertension Myocardial infarction Other Family history of hypertension Family History: Reports: Cancer, Heart Disease, Hypertension Review of Systems ROS: Unable to Obtain Physical Exam Vital Signs/Narrative: Vital Signs Temp Pulse Resp BP Pulse Ox 10/14/19 05:23 30 L 13 89/66 L 100 10/14/19 05:15 32 L 13 79/58 L 100 10/14/19 05:07 98 F 61 15 44 General: - - Patient is comatose. Primary survey was done initially the secondary survey on the physical exam was done after endotracheal intubation. Head: Normocephalic, Atraumatic Eyes: Negative for: Pale conjunctiva, Scleral icterus ENT: Dry mucous membranes Neck: Supple Cardiovascular: Bradycardia, - - Is being paced externally. Respiratory: - - Agonal respirations coarse breath sounds with bag valve, coarse breath sounds even after intubation but improved. Abdomen: Soft Back: Normal Inspection Extremities: No edema Skin: - - Ashen color Neurological: - - GCS is E1, V1, M3. Diagnostic/Tx/Re-eval - Rhythm Strip Rhythm Strip: Third-degree AV block Rate: 32 Ectopy: None - EKG Initial EKG Interpretation: - - Third-degree degree AV block with a rate of 32. Intraventricular conduction delay. No STEMI. Interpreted by emergency doctor - Medical Decision Making Patient is a dialysis patient with bradycardia, my initial concern is hyperkalemia, he also has third-degree AV block I am able to pace him externally and I started a dopamine drip. His blood pressure did improve. I will start a Versed drip. I am awaiting his potassium, if it is elevated he will need emergent dialysis, if it is relatively normal I will call cardiology for pacemaker placement. Potassium was 6.6. It is certainly elevated however he is a dialysis patient and likely tolerates a higher potassium therefore I am not entirely convinced that the bradycardia is solely secondary to potassium. Patient received medications already however I also started him on a bicarb drip. He will get albuterol. He is currently on dopamine drip, as well as Versed drip. I discussed the patient with cardiology, because of the high possibility the patient will need a pacemaker they suggested transfer to an outside facility. My dilemma is that he does need emergent dialysis, however if I wait to get emergent dialysis at this institution and he still needs a pacemaker I will have delayed his care. I believe the best option for him is what the knot saw operator, Dr. Bernal suggested and that is immediate transfer via [facility] for definitive care. I called [facility]. - Critical Care Time Critical care time (excluding procedures): 30-74 minutes, Discussing w/Patient &/or Family/Heating And Refrigeration Inspector, Discussing w/Consultants, Arranging Admission or Transfer - Does not include any procedures., Performing Direct Patient Care at Bedside Procedures Procedure(s): Endotracheal intubation. Patient did not have an IV he was not protecting his airway he was comatose with a GCS of 5 therefore I did not use medications, he was intubating using a 4?0 MAC blade with a 7.5 ET tube. External jugular peripheral IV insertion. EJ was done by me, left EJ was inserted with no difficulty. ED Disposition - Plan for ED Patient: Disposition: [facility] Diagnosis: Hyperkalemia, Third degree AV block, Respiratory failure Referrals: Sean Medina MD [Primary Care Provider] -
[2019-10-14] MEDS: Atropine Sulfate 1 MG/10 ML Syringe IV (05:34)
[2019-10-14 05:39] LABS: Absolute Lymphocyte Count 1.09 X10^3/uL (0.83-4.51); Basophil# 0.02 X10^3/uL; Basophil% 0.3 % (0-1); Eosinophil# 0.05 X10^3/uL; Eosinophils% 0.6 % (0-5); Hematocrit 31.6 % (40-54); Hemoglobin 9.5 g/dL (13.0-16.5); Lymphocyte # 1.09 X10^3/ul (4.0); Lymphocyte % 13.9 % (19-41); Mean Corp Hgb Conc 30.1 g/dL (32-36); Mean Corpuscular Hgb 31.4 pg (27.0-32.0); Mean Corpuscular Volume 104.3 fL (80-94); Mean Platelet Vol. 11.9 fl (6.2-12.0); Monocyte# 0.68 X10^3/uL; Monocyte% 8.7 % (0-10); NRBC Flagged by Analyzer 0.3 % (0-5); Neutrophil # 5.95 X10^3/uL (2.7-7.7); Neutrophil % 75.9 % (47-70); Platelet Count 220 K/mm3 (150-450); RBC Distribution Width CV 17.1 % (11.6-14.6); RBC Distribution Width SD 64.7 fl (35.1-43.9); Red Blood Count 3.03 M/mm3 (4.6-6.2); White Blood Count 7.8 K/mm3 (4.4-11.0)
[2019-10-14 05:43] LABS: International Normalized Ratio 1.3; Prothrombin Time (Protime)PT. 15.5 SECONDS (11.7-14.9)
[2019-10-14 05:44] LABS: Partial Thromboplast Time 28.9 Seconds (24.1-36.2)
[2019-10-14 05:57] LABS: ALB/GLOB Ratio 0.6 RATIO (0.9-2.4); AST(SGOT) 11 U/L (15-37); Alanine Aminotransfer ALT/SGPT 10 U/L (16-61); Albumin, Serum 2.8 g/dL (3.2-5.0); Alkaline Phosphatase 101 U/L (45-117); Anion Gap 17 (5-15); BUN 37 mg/dL (7-18); Calcium,Total 8.7 mg/dL (8.5-10.1); Chloride 93 mmol/L (98-107); Creatinine, Serum 7.47 mg/dL (0.70-1.30); EST Glomerular Filtration Rate 8 mL/min (>60); Est Glom Filt Rate - Afr Amer 9 mL/min (>60); Estimated Creatinine Clearance 8.14 ml/min; Globulin 4.9 g/dL (2.2-4.2); Glucose 213 mg/dL (74-106); Lipase 48 U/L (73-393); Potassium 6.6 mmol/L (3.5-5.1); Protein, Total 7.7 g/dL (6.4-8.2); Sodium Level 130 mmol/L (136-145)
[2019-10-14 06:06] LABS: Bacteria 0 SEEN /hpf (None Seen); Mucous, Urine 0 SEEN /hpf (<or=2+); Squamous Epithelial Cells - UA 0 SEEN /hpf (0-5)
[2019-10-14 06:13] LABS: Color, Urine Yellow (Yellow); Glucose, Dipstick Normal (Normal); Ketone-Dipstick 5 mg/dl (Negative); Leukocyte Esterase-Dipstick 25 /ul (Negative); Nitrite-Dipstick Negative (Negative); Occult Blood-Urine 10 /ul (Negative); Protein-Dipstick 100 mg/dl (Negative); Specific Gravity, Urine 1.015 (1.002-1.030); Urine Bilirubin Dipstick Negative (Negative); Urine Clarity Clear (Clear); Urine Urobilinogen 1 mg/dl (Normal)
[2019-10-14 06:20] LABS: Bedside Glucose 187 mg/dL (70-110)
[2019-10-14 06:28] LABS: Red Blood Cells-Urine 0-5 SEEN /hpf (0-5); White Blood Cells 0-5 SEEN /hpf (0-5)
[2019-10-14 06:36] LABS: Amphetamine Urine VISTA NEGATIVE (<1000 ng/mL); Barbiturate Urine VISTA NEGATIVE (< 200 ng/mL); Benzodiazepine Urine VISTA NEGATIVE (< 200 ng/mL); Cocaine Urine VISTA NEGATIVE (< 300 ng/mL); Ecstacy Urine VISTA NEGATIVE (< 500 ng/mL); Methadone Urine VISTA NEGATIVE (< 300 ng/mL); PCP Urine VISTA NEGATIVE (< 25 ng/mL); THC Urine VISTA NEGATIVE (< 50 ng/mL); Vista UDS pH Range 8
[2019-10-14 07:14] LABS: Potassium 7.3 mmol/L (3.5-5.1)
[2019-10-14 07:18] LABS: Lactic Acid 14.4 mmol/L (0.4-1.9)
[2019-10-14] MEDS: Sodium Bicarbonate 8.4% 50 ML Syringe 100 MEQ IV ×2 (07:23→07:26)
[2019-10-14] MEDS: Insulin Lispro 5 UNIT in Syringe 0 ML 3 UNIT IV (07:31)
[2019-10-14] MEDS: Sodium Polystyrene Sulfonate 15 GM/60 ML UDC 30 GM PO (07:32)
[2019-10-14 07:34] LABS: BNP,B-Type NATRIURETIC PEPTIDE > 5000.0 pg/mL (0-100)
[2019-10-14] MEDS: Dextrose 50%-Water 25 GM/50 ML DISP.SYRIN IV (07:42)
--- NOTE | 2019-10-14 07:53 | ED.RN ---
Dr Velazquez contacted dtr to update on pt status.
--- NOTE | 2019-10-14 08:05 | ED.RN ---
at 0530 pt was started externally paced per Dr Velazquez
[2019-10-14 08:21] LABS: Probe Check PASS; Specimen Processing Control PASS
[2019-10-14 09:45] LABS: VBG BASE EXCESS -8 mmol/L (-1.0-3.5); VBG Bicarbonate 18 mmol/L (22-26); VBG Oxygen Content 19 mmol/L (23-33); VBG PO2 42 mmHg (25-40); VBG SO2 75 % (50-70); VBG pCO2 32.9 mmHg (41-51); VBG pH 7.34 (7.32-7.42)
[2019-10-14 10:41] LABS: Blood Gas Specimen Type VEN; FI02 80; O2 Delivery Device Vent; RR 12; Vt 500
[2019-10-14 10:42] LABS: PEEP 5
[2019-10-14 10:53] LABS: Reflex Lactate? Y
--- NOTE | 2019-10-15 20:27 | ED.RN ---
zaria ruvalcaba called in asking about patient cell phone. spoke with nurse taking care of patient and checked with charting security does not have cell phone either. Zaria ruvalcaba made aware at this time
--- NOTE | 2019-10-16 09:18 | ED.RN ---
CULTURE RESULTS FAXED TO [facility]
== END 2019-10-14 08:05 | disposition short-term general hospital (02) ==
PROVIDERS: Emergency Provider Emergency Medicine; PCP Family Medicine
DX: E87.5 Hyperkalemia (principal); I44.2 Atrioventricular block, complete; J96.90 Respiratory failure, unspecified, unspecified whether with hypoxia or hypercapnia; R00.1 Bradycardia, unspecified; I12.0 Hypertensive chronic kidney disease with stage 5 chronic kidney disease or end stage renal disease; E11.22 Type 2 diabetes mellitus with diabetic chronic kidney disease; N18.6 End stage renal disease; Z99.2 Dependence on renal dialysis; Z79.899 Other long term (current) drug therapy
CPT/HCPCS: 36556; 31500; 51702; 71045; 80053; 80307; 80320; 81001; 82803; 82962; 83605; 83690; 83880; 84132; 84484; 85025; 85610; 85730; 87040; 87077; 87635; 93005; 94002; 94799; 96365; 96366; 96375; 96376; 99251; 99285; J7030; J7040; A4216; G0463; G0480; U0003

== ENCOUNTER 2019-11-10 08:18 | Day surgery (SDC) | payer MEDICARE, MEDICAID, SELFPAY ==
[2019-05-18 11:05] VITALS: BMI 28.3
[2019-08-23 13:34] VITALS: BMI 22.8
[2019-10-14 05:07] VITALS: BMI 26.9
--- NOTE | 2019-10-25 01:38 | HP_ITS ---
HPI HPI History of Present Illness Surgical H&P: Yes Details: PAXTON CRUZ, is a 73 M who presents to the office today for an update H&P for an ICD placement. He is scheduled to have this done 11/[address] Mcintyre. Patient is a history of coronary artery disease status post PTCA/HASMUKH to proximal RCA, mid LPL branch of the LCx, and mid LCx in April 2017, angioplasty and PCI to mid and distal RCA in 2014, thrombectomy and PCI to proximal, mid, and distal RCA in 2011, PTCA/HASMUKH to proximal LCx and PTCA/HASMUKH to mid RCA ISR on 10/28/2018, ischemic mediated cardiomyopathy, paroxysmal atrial fibrillation, hypertension, hyperlipidemia, diabetes, and renal insufficiency with dialysis , and Thursday. He was last seen in our office in October of 2018. Patient was in the hospital in November 2018. He was noted to have an elevated troponin. He did undergo a heart catheterization which demonstrated previously placed stent to his LAD was patent with diffuse LAD distal disease. Stent in the circumflex was patent with mild in-stent stenosis. Previously placed stent in RCA was occluded. No collateral circulation. Ejection fraction was noted to be 50%. He did undergo successful angioplasty of the mid RCA. He was then seen in the hospital in April 2019 for a STEMI. Heart cath demonstrated a decreased ejection fraction of 20 to 25%. Circumflex previously stented was occluded, proximal RCA had in-stent restenosis of 25%, mid RCA had in-stent restenosis of 90%. Patient underwent stenting of his mid circumflex mid RCA and proximal RCA. He was then in the hospital again at the beginning of May for acute hepatitis, severe sepsis. He was transferred to a tertiary facility for evaluation of this. He did have a repeat echocardiogram in July 2019 which demonstrated a moderately dilated LV. Estimated ejection fraction of 20 to 25%. Trivial mitral and tricuspid insufficiency. RVSP 30 mmHg. When compared to echocardiogram from May LV function has remained the same. At his OV in August he was noted to be having issues with low BP readings, he was finding that he was frequently falling and dialysis was telling him that his heart was racing. We did obtain a 30 day event monitor. NSVT was noted. He was also started on amiodarone. Pt was seen in our ER on 10/14/2019. He was seen for unresponsiveness. He was noted to have bradycardia, hyperkalemia, third-degree AV block. Patient was life flighted to [facility]. Pt sts that his biggest issue is his SOB with exertion. He would like to have have O2 at home. He is currently at [facility]. He is on O2 currently. He does go to [facility]. He is getting PT at [facility]. He does not have any chest pain. He does occasionally have chest heaviness. He notes that his is when he is SOB. He sleeps in a bed without problems. He has not had any lightheadedness since his has been in the hospital. He does have edema. He feels that this is worse than before. His diuretics along with the amiodarone were stopped while he was in the hospital. I do not have MR form [facility] yet. His base weight is higher. Intake Vital Signs 10/25/19 Weight: 189 lb 10/25/19 BP 101/54 L 10/25/19 Blood Pressure Location Lt brachial 10/25/19 Position Sitting 10/25/19 Respiration 18 10/25/19 Pulse 68 10/25/19 Pulse Source Monitor 10/25/19 Pulse Oximetry (%) 10 Intake Visit Reasons: 6 wk FU/LM Refractory Repairer Required: No Is patient in pain?: No Allergies codeine Allergy (Verified 10/25/19 12:58) Itching Medications Nitroglycerin (INPATIENT USE) [Nitrostat] 0.4 mg SUBLINGUAL Q5M PRN #30 tab.subl 05/19/19 [Rx Confirmed 10/25/19] Ticagrelor [Brilinta] 90 mg PO BID #60 tab 05/19/19 [Rx Confirmed 10/25/19] Sacubitril/Valsartan 24/26 mg [Entresto 24 mg-26 mg Tablet] 1 tab PO BID 05/30/19 [History Confirmed 10/25/19] atorvastatin 40 mg tablet 40 mg PO DAILY 08/23/19 [History Confirmed 10/25/19] carvedilol 6.25 mg tablet 6.25 mg PO BID 08/23/19 [History Confirmed 10/25/19] aspirin 81 mg tablet,delayed release 81 mg PO DAILY 10/25/19 [History Confirmed 10/25/19] darbepoetin teri in polysorbat 25 mcg/mL in polysorbate injection 25 mcg SC QWEEK 10/25/19 [History Confirmed 10/25/19] melatonin 3 mg capsule 3 mg PO HS PRN 10/25/19 [History Confirmed 10/25/19] pantoprazole 40 mg tablet,delayed release 40 mg PO DAILY 10/25/19 [History Confirmed 10/25/19] PFSH Social History (Updated 08/23/19 @ 14:50 by MARIAN Granados) Smoking Status: Unknown if ever smoked second hand exposure: No alcohol intake: never substance use type: does not use caffeine: No what type of physical activity do you participate in: none frequency: does not exercise seatbelt use: always do you feel safe at home: Yes Assessment & Plan Orders Orders: 12 Lead EKG performed by [facility] Today I48.0 Supplemental Info Supplemental Information Echocardigram from 10/28/2018: Interpretation Summary The estimated ejection fraction is 45 %. Posterior-Basal: Severely hypokinetic. Infero-Basal: Severely Hypokinetic. Compared to echo report dated 04/23/2017, posterior and inferior hypokinesis appear to be worse. Anteroseptal corcoran have normalized. The study was technically limited. Echocardiogram 07/2019: Moderately dilated left ventricle. The estimated ejection fraction is 20-25 %. Stage 1 diastolic dysfunction. There are regional wall motion abnormalities as specified. Trivial mitral valve insufficiency. Trivial tricuspid valve insufficiency. Right ventricular systolic pressure estimated to be 30 mmHg. In comparison to echo report dated 05/31/2019, LV function has remained about the same, and RVSP has improved from 38 to 30 mmHg. Diagnostics Electrocardiogram 10/25/19 Echocardiogram 08/17/19 Chest X-Ray 10/14/19 Date _ Mirella FONSECA
--- NOTE | 2019-11-07 13:05 | PCM.HP.BLA ---
History and Physical Date of Admission: 11/10/19 HPI HPI History of Present Illness Surgical H&P: Yes Details: PAXTON CRUZ, is a 74 M who presents to the manager cardiac cath today for an ICD placement with Dr. Mcintyre. Patient is a history of coronary artery disease status post PTCA/HASMUKH to proximal RCA, mid LPL branch of the LCx, and mid LCx in April 2017, angioplasty and PCI to mid and distal RCA in 2014, thrombectomy and PCI to proximal, mid, and distal RCA in 2011, PTCA/HASMUKH to proximal LCx and PTCA/HASMUKH to mid RCA ISR on 10/28/2018, ischemic mediated cardiomyopathy, paroxysmal atrial fibrillation, hypertension, hyperlipidemia, diabetes, and renal insufficiency with dialysis ,, and Thursday. He was last seen in our office in October of 2018. Patient was in the hospital in November 2018. He was noted to have an elevated troponin. He did undergo a heart catheterization which demonstrated previously placed stent to his LAD was patent with diffuse LAD distal disease. Stent in the circumflex was patent with mild in-stent stenosis. Previously placed stent in RCA was occluded. No collateral circulation. Ejection fraction was noted to be 50%. He did undergo successful angioplasty of the mid RCA. He was then seen in the hospital in April 2019 for a STEMI. Heart cath demonstrated a decreased ejection fraction of 20 to 25%. Circumflex previously stented was occluded, proximal RCA had in-stent restenosis of 25%, mid RCA had in-stent restenosis of 90%. Patient underwent stenting of his mid circumflex mid RCA and proximal RCA. He was then in the hospital again at the beginning of May for acute hepatitis, severe sepsis. He was transferred to a tertiary facility for evaluation of this. He did have a repeat echocardiogram in July 2019 which demonstrated a moderately dilated LV. Estimated ejection fraction of 20 to 25%. Trivial mitral and tricuspid insufficiency. RVSP 30 mmHg. When compared to echocardiogram from May LV function has remained the same. At his OV in August he was noted to be having issues with low BP readings, he was finding that he was frequently falling and dialysis was telling him that his heart was racing. We did obtain a 30 day event monitor. NSVT was noted. He was also started on amiodarone. Pt was seen in our ER on 10/14/2019. He was seen for unresponsiveness. He was noted to have bradycardia, hyperkalemia, third-degree AV block. Patient was life flighted to [facility]. He is currently at [facility] for Rehab. Pt sts that his biggest issue is his SOB with exertion. He is on O2 currently. He does go to dialysis M//. He is getting PT at [facility]. He does not have any chest pain. He does occasionally have chest heaviness. He notes that his is when he is SOB. He sleeps in a bed without problems. He has not had any lightheadedness since his has been in the hospital. He does have edema. He feels that this is worse than before. His diuretics along with the amiodarone were stopped while he was in the hospital. I do not have MR form [facility] yet. His base weight is higher. Pt has had covid test done at [place]. Intake Vital Signs 10/25/19 Weight: 189 lb 10/25/19 BP 101/54 L 10/25/19 Blood Pressure Location Lt brachial 10/25/19 Position Sitting 10/25/19 Respiration 18 10/25/19 Pulse 68 10/25/19 Pulse Source Monitor 10/25/19 Pulse Oximetry (%) 10 Intake Visit Reasons: ICD placement Peer Health Promoter Required: No Is patient in pain?: No Allergies codeine Allergy (Verified 10/25/19 12:58) Itching Medications Nitroglycerin (INPATIENT USE) [Nitrostat] 0.4 mg SUBLINGUAL Q5M PRN #30 tab.subl 05/19/19 [Rx Confirmed 10/25/19] Ticagrelor [Brilinta] 90 mg PO BID #60 tab 05/19/19 [Rx Confirmed 10/25/19] Sacubitril/Valsartan 24/26 mg [Entresto 24 mg-26 mg Tablet] 1 tab PO BID 05/30/19 [History Confirmed 10/25/19] atorvastatin 40 mg tablet 40 mg PO DAILY 08/23/19 [History Confirmed 10/25/19] carvedilol 6.25 mg tablet 6.25 mg PO BID 08/23/19 [History Confirmed 10/25/19] aspirin 81 mg tablet,delayed release 81 mg PO DAILY 10/25/19 [History Confirmed 10/25/19] darbepoetin teri in polysorbat 25 mcg/mL in polysorbate injection 25 mcg SC QWEEK 10/25/19 [History Confirmed 10/25/19] melatonin 3 mg capsule 3 mg PO HS PRN 10/25/19 [History Confirmed 10/25/19] pantoprazole 40 mg tablet,delayed release 40 mg PO DAILY 10/25/19 [History Confirmed 10/25/19] [facility] Social History (Updated 10/28/19 @ 08:59 by MARIAN Granados) Smoking Status: Unknown if ever smoked second hand exposure: No alcohol intake: never substance use type: does not use caffeine: No what type of physical activity do you participate in: none frequency: does not exercise seatbelt use: always do you feel safe at home: Yes ROS Const Const: Positive for fatigue; negative for weakness, fever(s) or headache(s) Eyes Eyes: Negative for blind spots, loss of peripheral vision or transient loss of vision ENT ENT: Positive for balance problems; negative for headache(s), dizziness, tinnitus or Nosebleed/epistaxis Cardio Chest Pain: Yes (see HPI) Palpitations: No Edema: Bilateral Muscle aches with walking: None Resp Respiratory: Positive for SOB with activity; negative for SOB at rest, SOB orthopnea\SOB lying down or Cough GI GI: Negative nausea, vomiting, heartburn or vomiting blood/hematemesis : Negative for hematuria Musc Musc: Positive for muscle aches/ myalgia, muscle weakness and balance problems Neuro Neuro: Negative for dizziness, lightheadedness, near syncope, syncope, orthostatic symptoms, headache(s) or weakness Mario Hematologic/Lymphatic: Negative for easy bleeding Endo Endo: Positive for fatigue Cardiology Exam Const Appearance: cooperative, no acute distress, frail appearing and other (in WC, on O2) Orientation: alert, awake and oriented x3 Head Head: normocephalic and atraumatic Mouth: moist mucous membranes Eyes General: appearance normal, both eyes and all related structures Conjunctivae: conjunctivae normal Pupils: PERRL EOM: EOM intact bilaterally Neck Neck: normal visual inspection, no lymphadenopathy and no JVD Carotids: Negative bruit Neck Mass: Negative Neck mass Chest Chest inspection: normal inspection of the chest and symmetric chest movement Auscultation: Bilateral: Diminished Lung Sounds Cardio Palpation: normal PMI Rate: regular rate Rhythm: regular rhythm Heart sounds: S1 normal and S2 normal; negative rub, gallop or murmur distant Heart sounds GI GI: normal to inspection, soft, no hepatosplenomegaly and bowel sounds present; negative tender Neuro General: alert, awake, oriented x3, CN's II-XI intact bilaterally and moves all extremities Extremities Pulses: Normal: Right Posterior Tibial Pulse, Left Posterior Tibial Pulse, Right Radial Pulse Upper Extremity: AV fistula left upper extremity Lower Extremity Edema: +1: Bilateral Psych Psychological: normal affect Assessment & Plan 1. Cardiomyopathy, ischemic I25.5 Plan Patient did have ventricular tachycardia noted on his event monitor. He was started on amiodarone. He will proceed with ICD placement. He is on an Entresto. He currently does not have any symptoms of congestive heart failure. A SDM interaction occurred at this visit using an SDM tool prior to initial implant of ICD. 2. Atherosclerosis of [place] coronary artery of [place] heart without angina pectoris I25.10 HASMUKH Mid RCA 04/2019; PTCA/HASMUKH to proximal RCA, mid LPL branch of the LCx, in mid LCx in April 2017; angioplasty and PCI to mid and distal RCA in 2014; thrombectomy and PCI to proximal, mid, and distal RCA in 2011; Plan Patient does not have of angina. He will continue with aggressive medical management and risk factor modification. He is aware that he needs to stay on his Brilinta for at least 1 year prior to interrupting. 3. Essential hypertension I10 Plan Stable, will not make any adjustments at this time. 4. ESRD (end stage renal disease) on dialysis N18.6; Z99.2 Plan Patient does follow with dialysis 3 days a week. Supplemental Info Supplemental Information Echocardigram from 10/28/2018: Interpretation Summary The estimated ejection fraction is 45 %. Posterior-Basal: Severely hypokinetic. Infero-Basal: Severely Hypokinetic. Compared to echo report dated 04/23/2017, posterior and inferior hypokinesis appear to be worse. Anteroseptal corcoran have normalized. The study was technically limited. Echocardiogram 07/2019: Moderately dilated left ventricle. The estimated ejection fraction is 20-25 %. Stage 1 diastolic dysfunction. There are regional wall motion abnormalities as specified. Trivial mitral valve insufficiency. Trivial tricuspid valve insufficiency. Right ventricular systolic pressure estimated to be 30 mmHg. In comparison to echo report dated 05/31/2019, LV function has remained about the same, and RVSP has improved from 38 to 30 mmHg. COVID (Procedure Consent) Procedure Criteria Procedure Criteria: Yes Elective The surgeon/proceduralist and patient have discussed in detail the risk of exposure to and/or potential harm posed by the COVID-19 virus with having a surgery/procedure at this time versus the risk of delaying the surgery/procedure. It is not possible to know either the risk of delaying the surgery or procedure or chance of getting an infection with perfect accuracy, but a joint decision was made between the patient and the surgeon/proceduralist to proceed at this time with the scheduled surgery/procedure as indicated on the consent form. Addendum 11/10/2019: Patient seen and evaluated prior to procedure. No changes noted from previous exam.
[2019-11-09 08:04] VITALS: BMI 31.4
[2019-11-10] VITALS (13 sets, daily range): BP systolic 97–120; BP diastolic 50–68; PULSE 57–79; RESP 15–18; TEMP 36.6–36.9; O2SAT 97–100
--- NOTE | 2019-11-10 13:05 | OP.PCM_ITS ---
Report of Operation Date of Procedure: 11/10/19 Description of Surgical Findings:: Diagnosis: Ischemic Cardiomyopathy with NYHA Class III; Left ventricular ejection fraction 25% despite optimal medical therapy. ICD for primary prevention Preoperative diagnosis implantation of single chamber ICD on righgt. Pt has fistula for dialysis on left UE Postoperative diagnosis same as above After informed consent and IV antibiotics the patient was brought to the [place] catheterization laboratory. The right side of the chest was prepped and draped in the usual sterile manner. The patient was sedated with intermittent boluses of IV Versed and fentanyl as well as subcutaneous 1% lidocaine. An incision was made inferior to the clavicle to accommodate the size of the hardware device. The pocket was created using blunt and Bovie dissection. Hemostasis was obtained. Using the Seldinger technique the axillary vein was cannulated once and a guidewire was advanced under fluoroscopic guidance. Over the guidewire a sheath was advanced. Through this sheath, the electrode was positioned under fluoroscopic guidance into the right ventricle and was actively fixated. Once actively fixated, the lead was tested to check for proper sensing, capture threshold, impedance and to exclude diaphragmatic stimulation. Advancing the sheath and lead around the tight bend in the subclavian vein and then have the lead pass into the RV apex was quite challenging and not likely to be able to be revised if needed in the future Once the lead was implanted and all electrical parameters were confirmed to be functioning normally with appropriate values, the leads was then sutured to the pectoralis muscle with 2-0 silk on the Silastic collar ?2. Related to his antiplatelet therapy and uremia, there was multiple contnuous oozing for muscle belly. Bovie of focal spots; constant pressure and Recomthrom 5000 units were used to control bleeding The sponge and needle count were correct. Hemostasis was obtained. Antibiotic solution was used to flush the pocket. The new device was brought to the field. The lead was placed in the appropriate position of the header of the device and were secured by the setscrews and confirmed by the tug test. The device and the leads were then placed in the pocket. Pocket was closed with a deep layer of running 2-0 Vicryl, superficial layer of running 4-0 Vicryl and skin with Steri-Strips that were covered with a rolled 4 x 4's and Tegaderm. The patient left the lab with the device programmed to chronic parameters. There were no complications. Implanted system is a single chamber [employer] ICD Lead and device serial and model numbers are available in the chart documents provided by the device company eligibility services representative procedure summary.
--- NOTE | 2019-11-10 14:30 | RAD_ITS ---
STUDY: X-RAY CHEST REASON FOR EXAM: Male, 74 years old. Pacemaker placement. TECHNIQUE: PA and lateral views of the chest. COMPARISON: Chest, 10/14/2019. FINDINGS: The endotracheal tube and nasogastric tube, present on the prior study are no longer evident. There is now a right-sided cardiac pacemaker with a single lead extending into the right atrium. There is a poor inspiratory effort with right pleural effusion and atelectasis. Smaller left pleural effusion is also suspected. The findings appear unchanged. There is no pneumothorax. Stable cardiomegaly. Normal mediastinum and evelio. Normal visualized pulmonary arteries. Normal visualized aortic arch and descending thoracic aorta. There are diffuse degenerative changes of the visualized thoracic spine. There is degenerative osteoarthritis of the bilateral shoulders. There is no demonstrated abnormality of the visualized soft tissue structures of the upper abdomen. RAD/Chest PA and Lateral IMPRESSION: 1. Right-sided cardiac pacemaker without pneumothorax. 2. Absence of the endotracheal tube and enteric tube seen on the previous study. 3. No other major interval change. Electronically Signed: Benjy Tabor DO at 17:00 EDT Tel [phone], Service support ,
--- NOTE | 2019-11-10 14:30 | RAD_ITS ---
STUDY: X-RAY CHEST REASON FOR EXAM: Male, 74 years old. POST PACER TECHNIQUE: Single AP portable view of the chest. COMPARISON: None. FINDINGS: Pacemaker seen on the right side with one lead in good position. There is compressive atelectasis in the right and left lung bases. There is moderate size right pleural effusion. There is small left pleural effusion. Normal size heart. Normal mediastinum and evelio. There is prominence of the pulmonary hilar arteries and peripheral pulmonary arteries, consistent with congestive heart failure (CHF). Normal visualized aortic arch and descending thoracic aorta. Normal visualized thoracic spine. Normal visualized ribs, clavicles, and shoulders. There is no demonstrated abnormality of the visualized soft tissue structures of the upper abdomen. RAD/Chest 1 View IMPRESSION: Congestive heart failure. Electronically Signed: Roque Enriquez, at 16:54 EDT Tel , Service support ,
[2019-11-10] MEDS: Acetaminophen 325 MG Tablet PO ×2 (15:22→22:32)
[2019-11-10] MEDS: Atorvastatin Calcium 40 MG Tablet PO (22:32)
[2019-11-10] MEDS: Zolpidem Tartrate 5 MG Tablet PO (22:32)
[2019-11-10] MEDS: Carvedilol 6.25 MG Tablet PO (22:32)
[2019-11-10] MEDS: SACUBITRIL/VALSARTAN 24/26 MG TABLET 1 EACH PO (22:33)
[2019-11-10] MEDS: TICAGRELOR 90 MG TABLET PO (22:33)
[2019-11-11 02:59] VITALS: PULSE 79
[2019-11-11 04:15] VITALS: BP 106/57; PULSE 76; RESP 16; TEMP 36.8; O2SAT 98
--- NOTE | 2019-11-11 05:10 | RAD_ITS ---
STUDY: X-RAY CHEST REASON FOR EXAM: Male, 74 years old. SOB TECHNIQUE: Frontal view of the chest COMPARISON: November 10 2019 FINDINGS: Appearance is stable since prior. There is a large right pleural effusion and right lower lobe obscuration. There is indistinct left lower lung opacity and small effusion. There is severe cardiomegaly with mild to moderate pulmonary edema.. Pacemaker is present with leads terminating in the right ventricle. Osseous structures are intact. RAD/Chest 1 View (Portable) IMPRESSION: 1. No change since prior. 2. Severe cardiomegaly, mild to moderate pulmonary edema. 3. Right greater than left pleural effusions. Electronically Signed: Milton Glover, at 19:53 EDT Tel , Service support ,
[2019-11-11 07:23] VITALS: PULSE 80
--- NOTE | 2019-11-11 07:53 | PN.CARD_ITS ---
Subjectve: Patient seen and evaluated. Objective: Vital Signs Temp Pulse Resp BP Pulse Ox 98.2 F 80 16 106/57 L 98 11/11/19 04:15 11/11/19 07:23 11/11/19 04:15 11/11/19 04:15 11/11/19 04:15 Oxygen Flow Rate (L/min) 2 Oxygen Delivery Method Nasal Cannula Weight: 189 lb Body Mass Index (BMI) 31.4 Finger Stick Blood Glucose 123 Intake and Output for Last 24 Hours 11/09/19 11/10/19 11/11/19 23:59 23:59 23:59 Intake Total 520 / 520 0 / 0 Output Total 100 / 100 Balance 420 / 420 0 / 0 General: Awake, Alert, Oriented x 3 HEENT: PERRL, EOMI, Sclera Non Icteric Neck: Supple, Good ROM, No Lymph Node Enlargement Lungs: Clear to auscultation Cardiovascular: Regular Rhythm, Normal S1, Normal S2, No Murmurs, No Rubs, No Gallops Vascular: No Carotid Bruits - Right-sided chest hematoma, Normal Femoral Pulses, Normal Radial Pulses, Normal Dorsalis Pedal Pulse, Normal Posterior Tibial Pulse s Abdomen: Bowel Sounds Present, Soft, Non Tender, No HSM, No Organomegaly Extremities: No Cyanosis, No Clubbing, No edema Neurological: No Focal Motor or Sensory Deficit Rhythm: EKG: ECHO: Stress Test: Cardiac Cath: PCI: CT Surgery: Holter monitor: EPS: PPM: CXR: Chest CT Scan: Medical Necessity - Tobacco Use Smoking Status: Unknown if ever smoked Tobacco Use: Non-smoker Assessment/Plan Status post implantable defibrillator via right approach Medium size hematoma noted No pneumothorax present Pacemaker will be interrogated and if stable patient to be discharged for outpatient follow-up.
--- NOTE | 2019-11-11 08:58 | DCINST_ITS ---
Discharge Diet: No Restrictions Discharge Activity: May Not Drive Call your doctor if your incision/area has: Continuous Slow Oozing, Sudden Increased Bleeding, Increased Pain/ Swelling, Increased Redness, Foul Smelling Discharge, Swelling at the incision site Call your doctor if you observe: Fever of 101 or Higher, Shortness of breath, Dizziness, Fainting spells, Swelling in the ankles, Chest pain, Prolonged hiccoughing, Increased palpitations (irregular heartbeat) Suture Line Care: Avoid Pulling/Pushing, Avoid Pinching/Bending Cleanse incision/area with: Keep Dressing Clean & Dry Additional Dressing/Incision Instructions:: When dressing is removed, wash and dry incision. Keep covered with a light bandage if it is rubbing against your clothing. Do not cover the incision with an airtight bandage. Change the bandage daily. Do not remove steri strips. The strips will fall off on their own. Additional Instructions: Signs and Symptoms to Report to Your Doctor at Once - call your doctor's office or Doctor's Registry ([phone]) Call 911 or go to the nearest Emergency Department if you feel you need urgent care. *Infection (fever, increased redness or swelling at the incision site, drainage from the incision increased pain at the pacemaker site) *Shortness of breath *Dizziness *Fainting spells *Swelling in the ankles *Chest pain *Prolonged hiccoughing *Increased palpitaitons (irregular heartbeat) Medications: Take your pain medication as directed. Refer to your discharge instruction sheet for a list of medications you are to take. Allergies/Adverse Reactions: Allergies codeine Allergy (Verified 10/25/19 12:58) Itching Medications to take at Discharge Nitroglycerin (INPATIENT USE) [Nitrostat] 0.4 mg SUBLINGUAL Q5M PRN #30 tab.subl 05/19/19 Ticagrelor [Brilinta] 90 mg PO BID #60 tab 05/19/19 Sacubitril/Valsartan 24/26 mg [Entresto 24 mg-26 mg Tablet] 1 tab PO BID 05/30/19 atorvastatin 40 mg tablet 40 mg PO DAILY 08/23/19 carvedilol 6.25 mg tablet 6.25 mg PO BID 08/23/19 aspirin 81 mg tablet,delayed release 81 mg PO DAILY 08/04/20 darbepoetin teri in polysorbat 25 mcg/mL in polysorbate injection 25 mcg SC QWEEK 10/25/19 melatonin 3 mg capsule 3 mg PO HS PRN 10/25/19 pantoprazole 40 mg tablet,delayed release 40 mg PO DAILY 10/25/19 Primary Care Physician: Sean Medina MD [Primary Care Provider] - Test Results: Test results from this visit will be discussed in further detail at your follow- up appointment, if applicable. When: [facility] AT 10:30 AM Proposed Discharge Date: 11/11/19
[2019-11-11 09:06] VITALS: BP 117/56; PULSE 82; RESP 15; TEMP 36.8; O2SAT 96
[2019-11-11] MEDS: Pantoprazole Sodium 40 MG Tablet PO (09:15)
[2019-11-11] MEDS: Aspirin E.C. 81 MG Tablet PO (09:15)
[2019-11-11] MEDS: TICAGRELOR 90 MG TABLET PO (09:15)
[2019-11-11] MEDS: Carvedilol 6.25 MG Tablet PO (09:15)
[2019-11-11] MEDS: SACUBITRIL/VALSARTAN 24/26 MG TABLET 1 EACH PO (09:15)
--- NOTE | 2019-11-11 09:50 | CASEMGMT ---
Social Work Pt is a current resident at [facility]. Pt has been discharged and [facility] will pick pt up today at noon and transport pt directly to dialysis and then will transport pt back to [facility]. Pt to have lunch prior to transport. Nursing made aware. D/C orders faxed. BEREKET Lara
--- NOTE | 2019-11-11 09:57 | PHA.DC.MR ---
Pharmacy Service has performed discharge medication reconciliation for this patient. No new medications issued at time of discharge back to SNF. Medications reviewed are previously reported home medications. The patient's discharge medication list was reviewed for discrepancies and discrepancies were resolved. Home Medications Nitroglycerin (INPATIENT USE) [Nitrostat] 0.4 mg SUBLINGUAL Q5M PRN #30 tab.subl 05/19/19 Ticagrelor [Brilinta] 90 mg PO BID #60 tab 05/19/19 Sacubitril/Valsartan 24/26 mg [Entresto 24 mg-26 mg Tablet] 1 tab PO BID 05/30/19 atorvastatin 40 mg tablet 40 mg PO DAILY 08/23/19 carvedilol 6.25 mg tablet 6.25 mg PO BID 08/23/19 aspirin 81 mg tablet,delayed release 81 mg PO DAILY 10/25/19 darbepoetin teri in polysorbat 25 mcg/mL in polysorbate injection 25 mcg SC QWEEK 10/25/19 melatonin 3 mg capsule 3 mg PO HS PRN 10/25/19 pantoprazole 40 mg tablet,delayed release 40 mg PO DAILY 10/25/19
--- NOTE | 2019-11-11 10:44 | NURSING ---
report called to [facility] nurse- Patricia Schuler
--- NOTE | 2019-11-11 10:49 | NURSING ---
revieweed asll instructions with patients nurse at [facility]
== END 2019-11-11 08:59 | disposition skilled nursing facility (03) ==
LOC: CLSP 08:22 → PCU 13:39
PROVIDERS: PCP Family Medicine; Referring Provider Internal Medicine Cardiovascular Disease; Visit Provider Internal Medicine Cardiovascular Disease
DX: Z45.02 Encounter for adjustment and management of automatic implantable cardiac defibrillator (principal); I25.5 Ischemic cardiomyopathy; I48.0 Paroxysmal atrial fibrillation; E78.5 Hyperlipidemia, unspecified; E11.22 Type 2 diabetes mellitus with diabetic chronic kidney disease; I12.0 Hypertensive chronic kidney disease with stage 5 chronic kidney disease or end stage renal disease; N18.6 End stage renal disease; Z79.899 Other long term (current) drug therapy; Z79.82 Long term (current) use of aspirin; Z99.2 Dependence on renal dialysis
CPT/HCPCS: 33249; 71045; 71046; 93641; 99152; 99153; J7040; J7050; A4216; C1769; C1894

== ENCOUNTER → 2020-02-22 10:55 | Outpatient (CLI) | payer MEDICARE, MEDICAID, SELFPAY ==
[2019-05-18 11:05] VITALS: BMI 28.3
[2019-11-09 08:04] VITALS: BMI 31.4
[2020-02-22 11:15] VITALS: BP 98/44; PULSE 73; RESP 16; TEMP 36.1; O2SAT 100; BMI 29.9
[2020-02-22] MEDS: 0.9% NaCl Peripheral Flush Adult/Peds IV (11:24)
[2020-02-22 11:54] VITALS: BP 78/59; PULSE 75; RESP 18; TEMP 36.1; O2SAT 100
[2020-02-22 12:54] VITALS: BP 86/50; PULSE 71; RESP 18; TEMP 36.1; O2SAT 100
[2020-02-22 14:35] VITALS: BP 89/51; PULSE 70; RESP 18; TEMP 36.3; O2SAT 100
== END ==
PROVIDERS: PCP Family Medicine; Referring Provider Student in an Organized Health Care Education/Training Program; Visit Provider Student in an Organized Health Care Education/Training Program
DX: N18.6 End stage renal disease (principal)
CPT/HCPCS: 36430; 86850; 86900; 86901; 86920; 86922; J7040; P9040; A4216

== ENCOUNTER 2020-03-03 11:02 | Emergency (ER) | payer MEDICARE, MEDICAID, SELFPAY ==
[2019-05-18 11:05] VITALS: BMI 28.3
[2020-02-22 11:15] VITALS: BMI 29.9
[2020-03-03 11:04] VITALS: BP 122/62; PULSE 85; RESP 35; TEMP 37.6; O2SAT 100; BMI 27.3
--- NOTE | 2020-03-03 11:40 | RAD_ITS ---
STUDY: X-RAY CHEST REASON FOR EXAM: Male, 74 years old. Weakness. TECHNIQUE: Single frontal view of the chest. COMPARISON: 11/11/2019 FINDINGS: Decreased interstitial pattern since the prior study. Bilateral pleural effusions, right greater than left with compression atelectasis, relatively unchanged. Stable cardiomegaly with cardiac pacer. Normal mediastinum and evelio. Normal visualized pulmonary arteries. Normal visualized aortic arch and descending thoracic aorta. Normal visualized thoracic spine. Normal visualized ribs, clavicles, and shoulders. There is no demonstrated abnormality of the visualized soft tissue structures of the upper abdomen. RAD/Chest 1 View (Portable) IMPRESSION: Cardiomegaly with decreased interstitial pattern since prior study. Bilateral pleural effusions, right greater than left. No acute finding. Electronically Signed: Ko Hooker MD at 12:03 EST , Service support ,
--- NOTE | 2020-03-03 12:00 | ED.VIS.GEN ---
History of Present Illness Informant: Patient Onset: Month(s) Narrative: 74-year-old male with past medical history of hypertension, hyperlipidemia, type 2 diabetes, A. fib, MD, ICD, ESRD recently stopped dialysis presents for generalized weakness and buttock pain. He states he has had redness and discomfort around his anus x 6 months. He has been using cream on it. Today the pain was so bad he came to the ED. He also self discontinued his dialysis with his last session on 01/25/20. He states he is in the process of setting up home hospice. He lives with his daughter. He does not want admitted or dialysis treatment. Denies fevers, chills, nausea, vomiting, chest pain, shortness of breath, cough, abdominal pain, diarrhea, or urinary symptoms. <Nieves Johnson - Last Filed: 03/03/20 12:57> <Jeffrey England - Last Filed: 03/03/20 13:14> Chief Complaint: General Illness Past Medical History Past Medical History: - - hypertension, hyperlipidemia, type 2 diabetes, A. 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 Smoking Status: Never smoker - Family History Maternal Family History: Family History (Last Reviewed 08/23/19 @ 14:09 by Mirella FONSECA, PA) Mother Breast cancer Myocardial infarction CAD (coronary artery disease) Father Colon cancer Hypertension Myocardial infarction Other Family history of hypertension Family History: Reports: Cancer, Heart Disease, Hypertension Paternal Family History: Family History (Last Reviewed 08/23/19 @ 14:09 by Mirella Aquino PA, PA) Mother Breast cancer Myocardial infarction CAD (coronary artery disease) Father Colon cancer Hypertension Myocardial infarction Other Family history of hypertension Family History: Reports: Cancer, Heart Disease, Hypertension <Nieves Johnson - Last Filed: 03/03/20 12:57> - Family History Maternal Family History: Family History (Last Reviewed 08/23/19 @ 14:09 by Mirella FONSECA, PA) Mother Breast cancer Myocardial infarction CAD (coronary artery disease) Father Colon cancer Hypertension Myocardial infarction Other Family history of hypertension Paternal Family History: Family History (Last Reviewed 08/23/19 @ 14:09 by Mirella Aquino PA, PA) Mother Breast cancer Myocardial infarction CAD (coronary artery disease) Father Colon cancer Hypertension Myocardial infarction Other Family history of hypertension <TomásJeffrey - Last Filed: 03/03/20 13:14> - Allergies and Home Meds Allergies/Adverse Reactions: Allergies codeine Allergy (Verified 03/03/20 11:03) Itching Primary Care Physician: Sean Medina MD [Primary Care Provider] - Review of Systems General: Reports: Malaise. Denies: Chills, Fever, Sweats Eyes: Denies: Visual changes - bilaterally, Diplopia ENT: Denies: Rhinorrhea, Sore throat Cardiovascular: Denies: Chest pain, Palpitations Respiratory: Denies: Dyspnea, Cough, Dyspnea on exertion Gastrointestinal: Denies: Abdominal pain, Nausea, Vomiting, Diarrhea, Melena, Hematochezia Genitourinary: Denies: Dysuria, Hematuria, Frequency Musculoskeletal: Denies: Back pain, Extremity Pain Skin: Reports: Rash. Denies: Wounds Neurological: Denies: Headache, Weakness, Numbness <Nieves Johnson - Last Filed: 03/03/20 12:57> Physical Exam Vital Signs/Narrative: Vital Signs Temp Pulse Resp BP Pulse Ox 03/03/20 11:04 99.6 F H 85 35 H 122/62 H 100 General: Cachectic, No Acute Distress Head: Normocephalic, Atraumatic Eyes: Perrl, EOMI ENT: Moist mucous membranes, No rhinorrhea Neck: Supple, Nontender Cardiovascular: Regular rate, Regular rhythm, No murmurs Respiratory: No distress, CTA bilaterally, Chest nontender Abdomen: Soft, Nontender, Nondistended, Normal bowel sounds Rectal: - Back: Normal Inspection Extremities: Nontender Skin: Normal color, - - erythema around anus extending up sacrum, first degree ulcer, no open wound or breaks in the skin. No discharge. Tender to touch. Neurological: Alert, Oriented x3, Cranial nerves II-XII grossly intact, Normal Strength, Normal Sensation Psychological: Normal affect, Normal Mood <Nieves Johnson - Last Filed: 03/03/20 12:57> Vital Signs/Narrative: Vital Signs Temp Pulse Resp BP Pulse Ox 03/03/20 11:04 99.6 F H 85 35 H 122/62 H 100 <Jeffrey England - Last Filed: 03/03/20 13:14> Diagnostic/Tx/Re-eval Clinical Impression(s) from Imaging Studies Chest X-Ray 03/03/20 11:40 IMPRESSION: Cardiomegaly with decreased interstitial pattern since prior study. Bilateral pleural effusions, right greater than left. No acute finding. Electronically Signed: Ko Hooker MD at 12:03 EST , Service support , - Medical Decision Making Patient presented with pain from his sacral decubitus ulcer. Appears cachectic and chronically ill but nontoxic. Vital signs within normal limits. Has a stage I sacral decubitus ulcer. He also has a candidal infection around his genitals. No open wounds or breaks in the skin. No concern for abscess or cellulitis. Initially, labs were going to be obtained due to generalized weakness. However, patient states he is setting up home hospice. Nursing staff contacted hospice who states they just need 1 signature from him and then it will be fully set up. They can go over today to his home after discharge to obtain this. For this reason, labs were canceled as it would not exchange engineer and he does not want medical intervention or admission. Chest x-ray had been obtained prior to this and show bilateral pleural effusions, otherwise no acute process. He was given prescriptions for Percocet and nystatin powder for candidal skin infection. Advised to continue barrier cream on his ulcer. He was discharged home to follow-up with home hospice nurse. <Nieves Johnson - Last Filed: 03/03/20 12:57> - Medical Decision Making Patient was seen and individually examined by myself. Agree with all above assessment and plan. Patient comfortable with this plan as well. He will be discharged home to hospice. <Jeffrey England - Last Filed: 03/03/20 13:14> ED Disposition <Nieves Johnson - Last Filed: 03/03/20 12:57> <Jeffrey England - Last Filed: 03/03/20 13:14> - Plan for ED Patient: Disposition: Home or Assisted Living Diagnosis: Decubitus ulcer of sacral region, stage 1, Vianey infection, ESRD (end stage renal disease), Debility Instructions: Pressure Ulcers: Common Sites Prescriptions: Nystatin Powder [Mycostatin Powder] 1 applic TOPICAL BID 7 Days bottle Prescription Printed Oxycodone HCl/Acetaminophen [Percocet 5/325] 1 tab PO Q6H PRN PRN 3 Days #12 tab PRN Reason: Pain Prescription Printed Referrals: Sean Medina MD [Primary Care Provider] -
[2020-03-03 12:06] VITALS: BP 108/62; PULSE 78; RESP 26; O2SAT 100
[2020-03-03] MEDS: Morphine 4 MG/ML Syringe IV (12:30)
[2020-03-03] MEDS: Ondansetron 4 MG/2 ML Vial IV (12:30)
--- NOTE | 2020-03-03 13:00 | ED.RN ---
Spoke with Daughter regarding D/C home to hospice care. Daughter voices concerns with ability to care for patient at home. Spoke with Mike with [facility] regarding this concern. Mike explained that their hospice program does not have an option for in patient treatment. Daughter and patient informed of this, both request transferring to a [facility] locally.
--- NOTE | 2020-03-03 13:29 | ED.RN ---
Spoke with on-call nurse at Hospice, referral process started at this time. Patient and daughter informed of pending admission with [facility]
[2020-03-03 13:36] VITALS: BP 112/66; PULSE 75; RESP 18; O2SAT 100
--- NOTE | 2020-03-03 14:16 | ED.RN ---
Hospice admission nurse in with patient at this time.
[2020-03-03 15:30] VITALS: BP 107/62; PULSE 71; RESP 20; O2SAT 99
[2020-03-03 16:01] VITALS: BP 117/67; PULSE 73; RESP 20; O2SAT 98
== END 2020-03-03 16:21 | disposition home or self-care (01) ==
LOC: ED 12:32
PROVIDERS: Emergency Provider Physician Assistant; PCP Family Medicine
DX: L89.151 Pressure ulcer of sacral region, stage 1 (principal); B37.49 Other urogenital candidiasis; J90 Pleural effusion, not elsewhere classified; R53.81 Other malaise; I48.91 Unspecified atrial fibrillation; I25.2 Old myocardial infarction; I12.0 Hypertensive chronic kidney disease with stage 5 chronic kidney disease or end stage renal disease; E11.22 Type 2 diabetes mellitus with diabetic chronic kidney disease; N18.6 End stage renal disease; Z99.2 Dependence on renal dialysis; E78.5 Hyperlipidemia, unspecified; Z51.5 Encounter for palliative care; Z95.810 Presence of automatic (implantable) cardiac defibrillator; Z79.899 Other long term (current) drug therapy
CPT/HCPCS: 71045; 96374; 96375; 99285; A4216; J2405